=== PATIENT | male | born 1935 | race African-American/Black ===

== ENCOUNTER 2016-06-30 21:05 | Inpatient (IN) | payer OTHER, MEDICARE ==
[2016-06-30] VITALS (10 sets, daily range): BP systolic 116–272; BP diastolic 77–163; PULSE 95–124; RESP 24–28; TEMP 98.6; O2SAT 67–100
[~2016-06-30] VITALS: Ht 195.6 cm; Wt 80.1 kg
[~2016-06-30 21:05] MED LIST: ASPI81TA82 PEG; CORE6.25 PEG; FERR300S PO; LISI10 PEG; PREV15CA20 PO; QUET25 PO; ZOLP10TA3 PO
[2016-06-30] MEDS ORDERED: PANTOPRAZOLE SODIUM 40 MG VIAL IV PUSH ONE (21:15)
[2016-06-30] MEDS ORDERED: RESP: ALBUTEROL 2.5 MG/IPRATROPIUM 0.5 MG NEB (SCH) INH ONE (21:15)
--- NOTE | 2016-06-30 21:26 | PD ---
HPI Chief Complaint: Cold / Flu Symptoms Time Seen by Provider: 21:15 Travel History International Travel<30 days: No Contact w/Intl Traveler<30days: No Traveled to known affect area: No History of Present Illness HPI 80-year-old male presents to the emergency department by private transportation the care of his senior care daughter for evaluation of hemoptysis. Patient has history of previous CVA and complications post admission for urosepsis with prolonged intubation and tracheostomy placement. Reportedly 2 years ago tracheostomy was removed patient had tracheal stent placement and has done well. Patient also has chronic PEG insertion 6 years. Patient's had no recent febrile illness. Reportedly this evening just prior to arrival to the emergency department while patient was receiving PEG tube feedings family member noticed black clot-like appearing substance in the aspirate of his tube feedings and when removed appeared to be a blood clot. Shortly thereafter patient started having forceful coughing and was noted to have red blood in the mouth. No reported history of GI bleed or PE. Patient was noted to have some small amount of blood around the stoma of the PEG tube. Patient has had no recent febrile illness. There has been no vomiting. Patient has had aspiration pneumonia since hospitalization 6 years ago for urosepsis and tracheostomy basement. Patient denies any pain. Patient has dysarthria and dementia and again history is provided by daughter. The daughter reports that the patient lives with her. The daughter is a supervisor inspection room. The patient receives all his care through the [facility]. Patient has a nurse practitioner come to his home and last visit was within the past month. Patient was scheduled to have his PEG tube replaced June 29 but this is been deferred to July 21. Daughter states they've had no issues with the PEG tube. PFSH Past Medical History Narrative Medical Aspirin use anemia CVA tracheostomy trachea stent PEG tube CAD COPD diabetes dementia diminished hearing hypertension prostate cancer schizophrenia seizure disorder umbilical herniorrhaphy; no tobacco use; no notes reviewed pneumonitis respiratory failure cardiac arrest Klebsiella pneumonia cognitive dysfunction pseudomonas infection gastrostomy prostate cancer recurrent pneumonia UTI Hx Anticoagulant Therapy: Yes (ASA) Alzheimer's Disease: Yes Autoimmune Disease: No Cancer: Yes (ADVANCE PROSTATE CANCER) Cardiovascular Problems: Yes (HTN) COPD: Yes Cerebrovascular Accident: Yes Coronary Artery Disease: Yes Dementia: Yes Diabetes: Yes (DIET) Diminished Hearing: Yes (profound hard of hearing) Endocrine: Yes Gastrointestinal Disorders: Yes GERD: Yes Genitourinary: Yes (UROSEPSIS) Hypertension: Yes Immune Disorder: No Neurologic: Yes Psychiatric: Yes (SCHIZOPHRENIA) Respiratory: Yes (TRACH IN THE PAST) Seizures: Yes PNEUMOCCOCAL Vaccine (Year): 1 Past Surgical History Abdominal Surgery: Yes (PEG TUBE, UMBILICAL HERNIA REPAIR) Other Surgery: Yes (TRACHEOSTOMY) Social History Alcohol Use: No Tobacco Use: No (QUIT AGE 76: SMOKED 50 YEARS) Substance Use: No Allergies-Medications (Allergen,Severity, Reaction): Coded Allergies: Penicillin (Verified Allergy, Unknown, 06/30/16) *MDRO Multi-Drug Resistant Organism (Verified Adverse Reaction, Unknown, MRSA, 07/03/16) MRSA PCR screen POSITIVE - 07/01/16 Codeine (Verified Adverse Reaction, Unknown, Anaphylaxis, 06/30/16) Reported Meds & Prescriptions Reported Meds & Active Scripts Active Reported Valium (Diazepam) 10 Mg Tab 10 Mg PO HS PRN Quetiapine (Quetiapine Fumarate) 50 Mg Tab 50 Mg PO HS Quetiapine (Quetiapine Fumarate) 25 Mg Tab 25 Mg GT NOON PRN Lisinopril 10 Mg Tab 10 Mg GT BID Prevacid (Lansoprazole) 15 Mg Capdr 15 Mg PO HS Ferrous Sulfate Liq (Ferrous Sulfate) 300 Mg/5 Ml Soln 300 Mg GT DAILY Coreg (Carvedilol) 6.25 Mg Tab 6.25 Mg G-TUBE BID Aspirin 81 Mg Tabdr 81 Mg GT HS Review of Systems ROS Limitations: Other: (senior care daughter) Except as stated in HPI: all other systems reviewed are Neg General / Constitutional: No: Fever, Chills Eyes: No: Visual changes HENT: Positive: Congestion, No: Nosebleed Cardiovascular: No: Chest Pain or Discomfort Respiratory: Positive: Cough, Shortness of Breath, Wheezing, Hemoptysis Gastrointestinal: Positive: Hematemesis, Other (bleeding noted at PEG tube insertion site), No: Nausea, Vomiting, Abdominal Pain Genitourinary: No: Flank Pain Musculoskeletal: No: Pain Skin: No Rash Neurologic: No: Weakness Psychiatric: No: Anxiety Hematologic/Lymphatic: No: Lymph Node Enlargement Physical Exam Narrative GENERAL: Elderly male with persistent coughing intermittent small amount of hemoptysis room air O2 saturation's 93% SKIN: Warm and dry. HEAD: Normocephalic. EYES: No scleral icterus. No injection or drainage. NECK: Supple, trachea midline. No JVD or lymphadenopathy. CARDIOVASCULAR: Increased Regular rate and rhythm without murmurs, gallops, or rubs. RESPIRATORY: Breath sounds equal bilaterally. No accessory muscle use. GASTROINTESTINAL: Abdomen soft, non-tender, nondistended. Abdomen soft nondistended PEG tube in place with scant blood at the stoma. MUSCULOSKELETAL: No cyanosis, or edema. BACK: Nontender without obvious deformity. No CVA tenderness. Data Data Last Documented VS Orders Complete Blood Count With Diff (06/30/16 21:15) Comprehensive Metabolic Panel (06/30/16 21:15) B-Type Natriuretic Peptide (06/30/16 21:15) Act Partial Throm Time (Ptt) (06/30/16 21:15) Prothrombin Time / Inr (Pt) (06/30/16 21:15) Magnesium (Mg) (06/30/16 21:15) Ckmb (Isoenzyme) Profile (06/30/16 21:15) Troponin I (06/30/16 21:15) Urinalysis - C+S If Indicated (06/30/16 21:15) Blood Culture (06/30/16 21:15) Iv Access Insert/Monitor (06/30/16 21:15) Electrocardiogram (06/30/16 21:15) Ecg Monitoring (06/30/16 21:15) Oximetry (06/30/16 21:15) Oxygen Administration (06/30/16 21:15) Chest, Single Ap (06/30/16 21:15) Sodium Chloride 0.9% Flush (Ns Flush) (06/30/16 21:15) Albuterol-Ipratropium Neb (Duoneb Neb) (06/30/16 21:15) Pantoprazole Inj (Protonix Inj) (06/30/16 21:15) Type And Screen (06/30/16 21:15) Lactic Acid Sepsis Protocol (06/30/16 21:15) Cefepime Inj (Maxipime Inj) (06/30/16 22:00) Linezolid 600 Mg Premix (Zyvox 600 Mg Pr (06/30/16 22:00) Metronidazole 500 Mg Inj (Flagyl 500 Mg (06/30/16 22:00) Sodium Chlor 0.9% 1000 Ml Inj (Ns 1000 M (06/30/16 22:00) Sodium Chlor 0.9% 1000 Ml Inj (Ns 1000 M (06/30/16 22:00) Ct Pulmonary Angiogram (06/30/16 ) Blood Product Administration .UPON TRANSFUSION (06/30/16 21:55) Sodium Chlor 0.9% 250 Ml Inj (Ns 250 Ml (06/30/16 22:00) Albuterol-Ipratropium Neb (Duoneb Neb) (06/30/16 22:15) Methylprednisolone So Succ Inj (Solumedr (06/30/16 22:15) Ct Abd/Pel W Iv Contrast(Rout) (06/30/16 22:04) Ondansetron Inj (Zofran Inj) (06/30/16 22:30) Racemic Epinephrine 2.25% Neb (Racepinep (06/30/16 22:45) Iohexol 350 Inj (Omnipaque 350 Inj) (06/30/16 22:47) Albuterol-Ipratropium Neb (Duoneb Neb) (06/30/16 23:15) Arterial Blood Gas (Abg) (06/30/16 ) Chest, Single Ap (06/30/16 ) Admit Order (Ed Use Only) (06/30/16 ) ^ Saline Lock (06/30/16 23:28) Resp Oxygen Bird C Titrat 1-4 L (06/30/16 ) ^ Notify Dr: Other (06/30/16 23:28) Sodium Chloride 0.9% Flush (Ns Flush) (07/01/16 09:00) Sodium Chloride 0.9% Flush (Ns Flush) (06/30/16 23:30) Labs Laboratory Tests Test 06/30/16 21:25 Crossmatch Leukocyte-Reduced Red Blood Cells Blood Bank Comment MDM Medical Decision Making Medical Screen Exam Complete: Yes Emergency Medical Condition: Yes Medical Record Reviewed: Yes Interpretation(s) CBC & BMP Diagram 06/30/16 21:25 Last Impressions Abdomen/Pelvis CT 06/30/162203 Signed Impressions: Service Date/Time: Thursday, June 30, 2016 22:16 - CONCLUSION: 1. The questioned mass on the patient's CT pulmonary angiogram in the liver does not correspond to any mass and was probably early vascular phenomenon related to arterial enhancement. 2. Left adrenal nodule indeterminant could still be an adenoma and direct comparison with the patient's prior CT from 2011 will be performed when that study is available and unarchived. 3. Tiny pericardial effusion. 4. 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 5. Left inguinal hernia. Naresh Riddle MD Chest X-Ray 06/30/162114 Signed Impressions: Service Date/Time: Thursday, June 30, 2016 21:34 - CONCLUSION: Mild right lung base atelectasis and/or infiltrate is seen. Naresh Riddle MD CT Angiography 06/30/16 0000 Signed Impressions: Service Date/Time: Thursday, June 30, 2016 22:16 - CONCLUSION: 1. There is no evidence for PE for technique. 2. There is soft tissue density within the tracheal stent causing almost 80%% compromise of the lumen may be mucous accumulation, however a mass is difficult to exclude. 3. Right lower lobe pneumonia. 4. Left adrenal nodule could be an adenoma and when the patient's prior CT examination of the abdomen from 2011 is available and unarchived, direct comparison will be made. 5. Renal cysts. 6. Tiny pericardial effusion. Naresh Riddle MD EKG: Sinus rhythm rate [address] elevation or injury pattern change age- indeterminate QS inferiorly CK 97; troponin I less than 0.02 not elevated; BNP 54 not elevated Coagulation studies normal Lactic acid not elevated 1.9 Differential Diagnosis Hemoptysis, PE, GI bleed, erosive gastritis peptic ulcer disease esophagitis, gastric/viscus perforation, coagulopathy, sepsis, pneumonia Narrative Course Patient placed on court monitor IV access obtained patient administered supplemental oxygen; Specimens collected and sent for resulting; Chest x-ray ordered and [facility] ordered Patient noted to have increasing volume of hemoptysis @10:15 PM patient sent for stat CT chest and abdomen patient continues to have gross hemoptysis; at time of transfer to CT vital signs and normal range O2 saturation on 2 L/m supple no nasal cannula oxygen 100%. Chest x-ray shows right lower lobe early infiltrate versus atelectasis no pneumothorax no failure no effusion no subdiaphragmatic free air. Approximately [address] abd/pel no acute findings --aaa noted and essentially unchanged from prior CT findings; CT pulmonary angiogram ---no PE but noted to have tracheal stent with approximately 80% obstruction by mucous or mass and RLL infiltrate --call placed to pulmonary property consultant and neon sign worker per privacy manager does not recommend bronchoscopy at this time is aware of call out to neon sign worker with plan to transfer to [facility] ICU discussed in detail with neon sign worker hx and ct and ongoing hemoptysis; aware of interventions up to this point with plan to administer morphine to help diminish cough; however, allergy reportedly to MS. Plan to administer dilaudid patient already with abg consistent with respiratory acidosis and concern for further respiratory depression or respiratory failure after narcotic administration. Helminthology Teacher re-contacted as increase in stridor --- requesting additional effort to obtain ICU bed as respiratory has deteriorated also discussing ED to ED transfer; family at bedside, aware if unable to provide assisted ventilations will need to proceed with intubation here with risks discussed in detail Patient with ambu assisted ventilations hemoptysis has dissipated and placed on BiPaP patient with marked respiratory acidosis; patient will definitively need intubation @ 00:45 EMS at bedside; for emergent transfer to [facility]; bedside report given; respiratory therapist and nurse to assist during transport. Critical Care Narrative Aggregate critical care time was 60 minutes. Time to perform other separately billable procedures was not included in the critical care time. My time did not include minutes spent treating any other patients simultaneously or on activities that did not directly contribute to the patient's treatment. The services I provided to this patient were to treat and/or prevent clinically significant deterioration that could result in: Respiratory arrest septic shock I provided critical care services requiring my management, as noted below: Chart data review, documentation time, medication orders and management, vital sign assessments/reviewing monitor data, ordering and reviewing lab tests, ordering and interpreting/reviewing x-rays and diagnostic studies, care of the patient and discussion of the patient with the admitting physicians. Sepsis Criteria SIRS Criteria (2 or more): Heart rate over 90, RR > 20 or PaCO2 < 32 Sepsis Criteria (SIRS+source): Infect source susp/known Physician Communication Physician Communication discussed with Manager Transplant Dr Rock; call placed to neon sign worker discussed with Dr Amanda, no intubation; follow up call placed to neon sign worker; bed available EMS called for stat transport Diagnosis Primary Impression: Major hemoptysis Additional Impressions: COPD (chronic obstructive pulmonary disease) Dysphagia as late effect of cerebrovascular accident (CVA) Respiratory failure with hypercapnia Qualified Code: J96.02 - Acute respiratory failure with hypercapnia Respiratory failure, acute and chronic Qualified Code: J96.21 - Acute on chronic respiratory failure with hypoxia and hypercapnia Pneumonia Qualified Code: J69.0 - Aspiration pneumonia of right lower lobe, unspecified aspiration pneumonia type Sepsis Admitting Information Admitting Physician Requests: Admit Natalie Braun MD Jun 30, 2016 21:26 [facility] Medical Decision Making Medical Screen Exam Complete: Yes Emergency Medical Condition: Yes Medical Record Reviewed: Yes Interpretation(s) CBC & BMP Diagram 06/30/16 21:25 Last Impressions Abdomen/Pelvis CT 06/30/164 Signed Impressions: Service Date/Time: Thursday, June 30, 2016 22:16 - CONCLUSION: 1. The questioned mass on the patient's CT pulmonary angiogram in the liver does not correspond to any mass and was probably early vascular phenomenon related to arterial enhancement. 2. Left adrenal nodule indeterminant could still be an adenoma and direct comparison with the patient's prior CT from 2011 will be performed when that study is available and unarchived. 3. Tiny pericardial effusion. 4. 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 5. Left inguinal hernia. Naresh Riddle MD Chest X-Ray 06/30/162114 Signed Impressions: Service Date/Time: Thursday, June 30, 2016 21:34 - CONCLUSION: Mild right lung base atelectasis and/or infiltrate is seen. Naresh Riddle MD CT Angiography 06/30/16 0000 Signed Impressions: Service Date/Time: Thursday, June 30, 2016 22:16 - CONCLUSION: 1. There is no evidence for PE for technique. 2. There is soft tissue density within the tracheal stent causing almost 80%% compromise of the lumen may be mucous accumulation, however a mass is difficult to exclude. 3. Right lower lobe pneumonia. 4. Left adrenal nodule could be an adenoma and when the patient's prior CT examination of the abdomen from 2011 is available and unarchived, direct comparison will be made. 5. Renal cysts. 6. Tiny pericardial effusion. Naresh Riddle MD EKG: Sinus rhythm rate [address] elevation or injury pattern change age- indeterminate QS inferiorly CK 97; troponin I less than 0.02 not elevated; BNP 54 not elevated Coagulation studies normal Lactic acid not elevated 1.9 Differential Diagnosis Hemoptysis, PE, GI bleed, erosive gastritis peptic ulcer disease esophagitis, gastric/viscus perforation, coagulopathy, sepsis, pneumonia Narrative Course Patient placed on court monitor IV access obtained patient administered supplemental oxygen; Specimens collected and sent for resulting; Chest x-ray ordered and DuoNeb updrafts ordered Patient noted to have increasing volume of hemoptysis @10:15 PM patient sent for stat CT chest and abdomen patient continues to have gross hemoptysis; at time of transfer to CT vital signs and normal range O2 saturation on 2 L/m supple no nasal cannula oxygen 100%. Chest x-ray shows right lower lobe early infiltrate versus atelectasis no pneumothorax no failure no effusion no subdiaphragmatic free air. Approximately [address] abd/pel no acute findings --aaa noted and essentially unchanged from prior CT findings; CT pulmonary angiogram ---no PE but noted to have tracheal stent with approximately 80% obstruction by mucous or mass and RLL infiltrate --call placed to pulmonary property consultant and neon sign worker per privacy manager does not recommend bronchoscopy at this time is aware of call out to neon sign worker with plan to transfer to [facility] ICU discussed in detail with neon sign worker hx and ct and ongoing hemoptysis; aware of interventions up to this point with plan to administer morphine to help diminish cough; however, allergy reportedly to MS. Plan to administer dilaudid patient already with abg consistent with respiratory acidosis and concern for further respiratory depression or respiratory failure after narcotic administration. Helminthology Teacher re-contacted as increase in stridor --- requesting additional effort to obtain ICU bed as respiratory has deteriorated also discussing ED to ED transfer; family at bedside, aware if unable to provide assisted ventilations will need to proceed with intubation here with risks discussed in detail Patient with ambu assisted ventilations hemoptysis has dissipated and placed on BiPaP patient with marked respiratory acidosis; patient will definitively need intubation @ 00:45 EMS at bedside; for emergent transfer to [facility]; bedside report given; respiratory therapist and nurse to assist during transport. Critical Care Narrative Aggregate critical care time was 60 minutes. Time to perform other separately billable procedures was not included in the critical care time. My time did not include minutes spent treating any other patients simultaneously or on activities that did not directly contribute to the patient's treatment. The services I provided to this patient were to treat and/or prevent clinically significant deterioration that could result in: Respiratory arrest septic shock I provided critical care services requiring my management, as noted below: Chart data review, documentation time, medication orders and management, vital sign assessments/reviewing monitor data, ordering and reviewing lab tests, ordering and interpreting/reviewing x-rays and diagnostic studies, care of the patient and discussion of the patient with the admitting physicians. Sepsis Criteria SIRS Criteria (2 or more): Heart rate over 90, RR > 20 or PaCO2 < 32 Sepsis Criteria (SIRS+source): Infect source susp/known Physician Communication Physician Communication discussed with Manager Transplant Dr Rock; call placed to neon sign worker discussed with Dr Amanda, no intubation; follow up call placed to neon sign worker; bed available EMS called for stat transport Diagnosis Primary Impression: Major hemoptysis Additional Impressions: COPD (chronic obstructive pulmonary disease) Dysphagia as late effect of cerebrovascular accident (CVA) Respiratory failure with hypercapnia Qualified Code: J96.02 - Acute respiratory failure with hypercapnia Respiratory failure, acute and chronic Qualified Code: J96.21 - Acute on chronic respiratory failure with hypoxia and hypercapnia Pneumonia Qualified Code: J69.0 - Aspiration pneumonia of right lower lobe, unspecified aspiration pneumonia type Sepsis Admitting Information Admitting Physician Requests: Admit Natalie Braun MD Jun 30, 2016 21:26
[2016-06-30 21:40] LABS: BASOPHIL # 0.1 TH/MM3 (0-0.2); BASOPHIL % 1.6 % (0.0-2.0); EOSINOPHIL # 0.3 TH/MM3 (0-0.4); EOSINOPHIL % 4.8 % (0.0-4.0); HEMATOCRIT 37.3 % (39.0-51.0); HEMO FLAGS DIFF FINAL; LYMPH % 22.4 % (9.0-44.0); LYMPHOCYTE # 1.2 TH/MM3 (1.0-4.8); MEAN CELL VOLUME 96.4 FL (80.0-100.0); MEAN CORPUSCULAR HEMOGLOBIN 32.4 PG (27.0-34.0); MEAN CORPUSCULAR HGB CONC 33.6 % (32.0-36.0); MONO % 14.9 % (0.0-8.0); NEUT % 56.3 % (16.0-70.0); PLATELET COUNT 141 TH/MM3 (150-450); RED BLOOD COUNT 3.86 MIL/MM3 (4.50-5.90); RED CELL DISTRIBUTION WIDTH 14.9 % (11.6-17.2); WHITE BLOOD COUNT 5.4 TH/MM3 (4.0-11.0)
[2016-06-30] MEDS: SODIUM CHLORIDE 0.9% FLUSH 5 ML FLUSH IVF PRN (21:42)
--- NOTE | 2016-06-30 21:47 | RADHPO ---
EXAM DATE/TIME: 06/30/2016 21:34 [facility] COMPARISON: CHEST PA & LAT, November 12, 2014, 23:06. INDICATIONS : Shortness of breath. MEDICAL HISTORY : Hypertension. Carcinoma, prostatic. Cerebrovascular disease. Dementia, Alzheimer's disease, cad, copd, gerd, diabetes, urosepsis SURGICAL HISTORY : PEG tube, Hernia repair, Right hip pinning, Tracheostomy ENCOUNTER: Initial ACUITY: 1 day PAIN SCORE: 0/10 LOCATION: Bilateral chest FINDINGS: Mild right lung base atelectasis and/or infiltrate is seen. Heart and mediastinum are unremarkable fo r technique. CONCLUSION: Mild right lung base atelectasis and/or infiltrate is seen. Naresh Riddle MD on June 30, 2016 at 21:45 Board Certified Radiologist. This report was verified electronically.
[2016-06-30 21:52] LABS: APTT (PATIENT) 28.8 SEC (24.3-30.1); PROTHROMBIN TIME - PATIENT 10.7 SEC (9.8-11.6)
[2016-06-30 21:54] LABS: CHLORIDE 102 MEQ/L (98-107); POTASSIUM 4.6 MEQ/L (3.5-5.1); SODIUM (NA) 140 MEQ/L (136-145)
[2016-06-30] MEDS ORDERED: ASPI1TAB69 GT ×2 (21:56)
[2016-06-30] MEDS ORDERED: QUET1TAB7 GT (21:56)
[2016-06-30] MEDS ORDERED: CARV6.25 G-TUBE (21:56)
[2016-06-30] MEDS ORDERED: QUET5TAB PO (21:56)
[2016-06-30] MEDS ORDERED: PREV15CA15 PO (21:56)
[2016-06-30] MEDS ORDERED: LISI10TA3 GT (21:56)
[2016-06-30] MEDS ORDERED: DIAZ10 PO (21:56)
[2016-06-30] MEDS ORDERED: FERR300S GT (21:56)
[2016-06-30 21:57] LABS: ANION GAP 7 MEQ/L (5-15); BICARBONATE 31.4 MEQ/L (21.0-32.0); MAGNESIUM 2.4 MG/DL (1.5-2.5)
[2016-06-30 22:00] LABS: ALT (GPT) 14 U/L (12-78)
[2016-06-30] MEDS ORDERED: SODIUM CHLOR 0.9% 250 ML INJ 250 ML IV ONE (22:00)
[2016-06-30] MEDS ORDERED: CEFEPIME INJ 2,000 MG in SODIUM CHLORIDE 0.9% INJ 100 ML IV ONE (22:00)
[2016-06-30] MEDS ORDERED: metroNIDAZOLE 500 MG INJ 100 ML IV ONE (22:00)
[2016-06-30] MEDS ORDERED: SODIUM CHLOR 0.9% 1000 ML INJ 1,000 ML IV SCH (22:00)
[2016-06-30] MEDS ORDERED: LINEZOLID 600 MG PREMIX 300 ML IV ONE (22:00)
[2016-06-30] MEDS ORDERED: SODIUM CHLOR 0.9% 1000 ML INJ 1,000 ML IV ONE (22:00)
[2016-06-30 22:01] LABS: AST (GOT) 23 U/L (15-37); BLOOD UREA NITROGEN 29 MG/DL (7-18); GLOMERULAR FILTRATION RATE 92 ML/MIN (>89)
[2016-06-30 22:02] LABS: TOTAL BILIRUBIN ADULT 0.6 MG/DL (0.2-1.0)
[2016-06-30 22:03] LABS: ALKALINE PHOSPHATASE 96 U/L (45-117)
[2016-06-30 22:06] LABS: CREATINE KINASE 97 U/L (39-308)
[2016-06-30] MEDS ORDERED: RESP: ALBUTEROL 2.5 MG/IPRATROPIUM 0.5 MG NEB (SCH) NEB ONE ×2 (22:15→23:15)
[2016-06-30] MEDS ORDERED: methylPREDNISolone SOD SUCC 125 MG/2 ML VIAL IV PUSH ONE (22:15)
[2016-06-30] MEDS ORDERED: ONDANSETRON HCL 4 MG/2 ML VIAL IV PUSH ONE (22:30)
--- NOTE | 2016-06-30 22:43 | RADHPO ---
EXAM DATE/TIME: 06/30/2016 22:16 [place] Corrected on: June 30, 2016; [facility] COMPARISON: CT ABDOMEN & PELVIS W CONTRAST, June 30, 2016, 22:16. INDICATIONS : Hemoptysis with shortness of breath. IV CONTRAST: 100 cc Omnipaque 350 (iohexol) IV ; Cumulative dose for multiple exams. RADIATION DOSE: 11.14 CTDIvol (mGy) MEDICAL HISTORY : Hypertension. Chronic obstructive pulmonary disease. Gastroesophageal reflux disease.Inguinal hernia. Diabetes. SURGICAL HISTORY : None. ENCOUNTER: Initial ACUITY: 1 day PAIN SCALE: 5/10 LOCATION: chest TECHNIQUE: Volumetric scanning of the chest was performed using a pulmonary embolism protocol MIP images were re constructed. Using automated exposure control and adjustment of the mA and/or kV according to patien t size, radiation dose was kept as low as reasonably achievable to obtain optimal diagnostic quality images. FINDINGS: There is no evidence for PE for technique. There is a stent in the patient's trachea and at the level of the thoracic inlet there is soft tissue density within it causing almost 80% narrowing of th e lumen. This could be mucous accumulation, however a mass is difficult to exclude. Right lower lobe consolidation is present most likely pneumonia. Tiny pericardial effusion is seen. There is an area a lmost 5 cm enhancement in the right hepatic lobe probably vascular phenomenon since it is not identif ied as a mass on the patient's CT abdomen and this is related to early arterial enhancement. Left adr enal nodule is present measuring almost 2.2 cm in size nonspecific and the patient's older CT examina tion from 2011 is not available at this time for direct comparison. There are simple cysts in the kid neys. CONCLUSION: 1. There is no evidence for PE for technique. 2. There is soft tissue density within the tracheal stent causing almost 80% compromise of the lumen may be mucous accumulation, however a mass is difficult to exclude. 3. Right lower lobe pneumonia. 4. Left adrenal nodule could be an adenoma and when the patient's prior CT examination of the abdomen from 2011 is available and unarchived, direct comparison will be made. 5. Renal cysts. 6. Tiny pericardial effusion. Naresh Riddle MD on June 30, 2016 at 22:48 Board Certified Radiologist. This report was verified electronically.
[2016-06-30] MEDS ORDERED: RESP: RACEPINEPHRINE 2.25% 0.5 ML NEB NEB ONE (22:45)
[2016-06-30] MEDS ORDERED: IOHEXOL 350 MG/ML 10 ML VIAL (for RAD DIAG) IV ONE (22:47)
--- NOTE | 2016-06-30 22:50 | RADHPO ---
EXAM DATE/TIME: 06/30/2016 22:16 [facility] COMPARISON: No previous studies available for comparison. INDICATIONS : Hemoptysis with shortness of breath. IV CONTRAST: 100 cc Omnipaque 350 (iohexol) IV ; Cumulative dose for multiple exams. ORAL CONTRAST: No oral contrast ingested. RADIATION DOSE: 13.51 CTDIvol (mGy) MEDICAL HISTORY : Hernia, inguinal. Gastroesophageal reflux disease. Chronic obstructive pulmonary disease.Diabetes. Pr ostate carcinoma. SURGICAL HISTORY : Umbilical hernia repair. ENCOUNTER: Initial ACUITY: 1 day PAIN SCALE: 5/10 LOCATION: Abdomen. TECHNIQUE: Volumetric scanning of the abdomen and pelvis was performed. Using automated exposure control and ad justment of the mA and/or kV according to patient size, radiation dose was kept as low as reasonably achievable to obtain optimal diagnostic quality images. FINDINGS: CT Abdomen: There is an approximate 2 cm low attenuating mass in the left adrenal gland nonspecific w ith a separate smaller nodule as well. There are simple cysts in both kidneys the largest one on the right almost 5 cm in size. The liver, spleen, pancreas, right adrenal are unremarkable. There is no e vidence for any appreciable pathological adenopathy, free fluid, or bowel obstruction. There is exte nsive atherosclerotic disease involving the ascending aorta with AAA which measures 5.8 x 6.2 cm in s ize. There is also extension of the aneurysm into bilateral common iliac arteries and on the right si de measures 4.6 x 4.4 cm in size and on the left side almost 2.2 cm in size. Extensive intramural thr ombus is identified. Tiny pericardial effusion is seen. The area of possible mass on the patient's CT pulmonary angiogram within the right hepatic lobe was probably a vascular phenomenon related to german y arterial enhancement and there is no mass at this site. CT pelvis: There is no evidence for mass, abscess formation, or any significant adenopathy within the pelvis. The prostate gland is inhomogeneous and measures 5.1 x 5.6 cm in AP and transverse diameters and nonspecific. Left inguinal hernia is present with herniation of fat contents and some fluid at t his site. CONCLUSION: 1. The questioned mass on the patient's CT pulmonary angiogram in the liver does not correspond to an y mass and was probably early vascular phenomenon related to arterial enhancement. 2. Left adrenal nodule indeterminant could still be an adenoma and direct comparison with the patient 's prior CT from 2011 will be performed when that study is available and unarchived. 3. Tiny pericardial effusion. 4. 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 5. Left inguinal hernia. Naresh Riddle MD on June 30, 2016 at 22:41 Board Certified Radiologist. This report was verified electronically.
[2016-06-30] MEDS ORDERED: SODIUM CHLORIDE 0.9% FLUSH 5 ML FLUSH IVF PRN (23:30)
[2016-06-30 23:36] LABS: BLOOD GAS BASE EXCESS 5.1 mmol/L (-2-2); BLOOD GAS CARBOXYHEMOGLOBIN 1.7 % (0-4); BLOOD GAS HCO3 31 mmol/L (22-26); BLOOD GAS METHEMOGLOBIN 0.9 % (0-2); BLOOD GAS O2 HGB SATURATION 90 % (90-100); BLOOD GAS OXYGEN CONTENT 14.8 Vol % (12.0-20.0); BLOOD GAS PCO2 61 mmHG (38-42); BLOOD GAS PO2 71 mmHG (61-120); BLOOD GAS TOTAL HGB 11.6 G/DL (12.0-16.0); TEMP CORR TO 98.6
[2016-06-30 23:37] LABS: CRITICAL VALUE YES; DRAW SITE LT BRACHIAL; LITER FLOW 2 L/M; NUMBER OF ARTERIAL PUNCTURES 1; OXYGEN DEVICE NASAL CANNULA; STAT YES
[2016-06-30] MEDS ORDERED: DEXMEDETOMIDINE INJ 50 ML IV SCH (23:45)
[2016-07-01] VITALS (23 sets, daily range): BP systolic 109–223; BP diastolic 53–130; PULSE 48–112; RESP 18; TEMP 97.6–98.3; O2SAT 91–100
[2016-07-01] MEDS ORDERED: ENALAPRILAT 1.25 MG/ML VIAL IV PUSH ONE
[2016-07-01] MEDS ORDERED: FUROSEMIDE 40 MG/4 ML VIAL IV PUSH ONE
[2016-07-01] MEDS ORDERED: HYDROmorphone HCL PF 1 MG/ML VIAL IV PUSH ONE ×2
[2016-07-01] MEDS: SODIUM CHLORIDE 0.9% FLUSH 5 ML FLUSH IVF PRN (00:06)
[2016-07-01 00:25] LABS: BLOOD GAS BASE EXCESS 1.5 mmol/L (-2-2); BLOOD GAS CARBOXYHEMOGLOBIN 0.8 % (0-4); BLOOD GAS HCO3 34 mmol/L (22-26); BLOOD GAS METHEMOGLOBIN 1.2 % (0-2); BLOOD GAS O2 HGB SATURATION 77 % (90-100); BLOOD GAS PCO2 165 mmHG (38-42); BLOOD GAS PO2 73 mmHG (61-120); BLOOD GAS TOTAL HGB 12.9 G/DL (12.0-16.0); CRITICAL VALUE YES; DRAW SITE RT BRACHIAL; FIO2 100 %; NUMBER OF ARTERIAL PUNCTURES 1; OXYGEN DEVICE AMBU; STAT YES; TEMP CORR TO 98.6
--- NOTE | 2016-07-01 00:27 | RADHPO ---
EXAM DATE/TIME: 06/30/2016 23:29 [facility] COMPARISON: CT PULMONARY ANGIOGRAM, June 30, 2016, 22:16. CHEST SINGLE AP, June 30, 2016, 21:34. INDICATIONS : Cough. MEDICAL HISTORY : Hypertension. Carcinoma, prostatic. Cerebrovascular disease. Dementia, Alzheimer's disease, cad, copd, gerd, diabetes, urosepsis SURGICAL HISTORY : PEG tube, Hernia repair, Right hip pinning, Tracheostomy ENCOUNTER: Initial ACUITY: 1 day PAIN SCORE: 0/10 LOCATION: Bilateral chest FINDINGS: Rotated portable AP view of the chest demonstrates a normal-sized cardiac silhouette with tortuous de scending thoracic aorta. There is a stent within the trachea. The lungs are underinflated and there i s stable airspace consolidation at the right lung base. No pleural effusion or pneumothorax is visual ized. Bones and soft tissues demonstrate no acute finding. CONCLUSION: Stable chest x-ray with mild airspace consolidation at the right lung base. Zach Marquis MD on July 01, 2016 at 0:24 Board Certified Radiologist. This report was verified electronically.
[2016-07-01 00:46] LABS: GLUCOSE,URINE NEG (NEG); KETONE, URINE NEG (NEG); NITRITE,URINE NEG (NEG); PH, URINE 5.5 (5.0-8.5)
[2016-07-01 00:58] LABS: BLOOD, URINE MOD (NEG); URINE COLOR YELLOW (YELLW/STRAW); WBC, URINE 0-2 /hpf (0-5)
[2016-07-01 00:59] LABS: COMMENT (UR) CULT NOT INDICATED; CULTURE IF INDICATED CULT NOT INDICATED
[2016-07-01] MEDS ORDERED: ETOMIDATE 20 MG/10 ML VIAL ONE (01:43)
[2016-07-01] MEDS ORDERED: ROCURONIUM INJ 50 MG/5 ML VIAL ONE (01:44)
[2016-07-01] MEDS ORDERED: MIDAZOLAM HCL 5 MG/ML VIAL (1 ML) ONE (01:45)
[2016-07-01] MEDS ORDERED: LIDOCAINE HCL 2% 50 ML VIAL ONE (01:56)
[2016-07-01] MEDS ORDERED: KETAMINE HCL 500 MG/10 ML VIAL IV SCH (02:00)
[2016-07-01] MEDS ORDERED: NOREPINEPHRINE-DEXTROSE DRIP 250 ML IV ONE (02:21)
[2016-07-01] MEDS ORDERED: EPINEPHrine HCL (1:10,000) 1 MG/10 ML SYRINGE ONE (02:42)
[2016-07-01] MEDS ORDERED: fentaNYL 2,500 MCG/NS 250 ML IV SCH (03:00)
--- NOTE | 2016-07-01 03:07 | HHI.HP ---
HPI Service Critical Care Medicine Primary Care Physician [facility] Admission Diagnosis gross hemoptysis; pneumonia; copd Diagnosis: Travel History International Travel<30 Days: No Contact w/Intl Traveler <30 Da: No Traveled to Known Affected Are: No History of Present Illness 80-year-old male with past medical history of dementia, prostate cancer, coronary artery disease, diabetes mellitus (now diet controlled), HTN, seizure disorder who has had multiple hospitalizations for sepsis. He has a prior history of tracheostomy and PEG which were placed in 2009 following an episode of urosepsis and respiratory failure. 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 PEG remains in place and he is supposed to be fed exclusively through PEG due to recurrent aspiration, though his daughter states that he sometimes will eat when he is in respite care. Tonight his son-in-law was administering a bolus feed and then he had some hemoptysis. In addition, a clot had been removed when PEG suctioned. He has been coughing for about a week. No fevers. He was in respite care 06/08-06/10 when his daughter was out of town, but typically he is cared for by his daughter who is a coppersmith helper. When he presented to [facility], he underwent CTA chest which demonstrated no PE. There was opacification RLL concerning for aspiration. There was a tracheal stent in place, the proximal end of which was at the thoracic inlet and then extended distally ~3.75 cm. The stent appeared ~80% occluded by debris versus mass. The patient was initially on 2 L NC and having some hemoptysis. I accepted him in transfer. However, he subsequently developed respiratory distress, hypertension, anxiety, stridor.. ABG showed ph 7/32/PaCO2 61/paO2 71. He was started on heliox. He was bagged to assist ventilations and Bipap was attempted. ED physician understandably concerned with risk of endotracheal intubation or tracheostomy given the presence and location of stent with limited resources at that facility. Upon arrival to [facility], patient was being bagged, difficult to ventilate, and RN and paramedics revealed that a repeat ABG just prior to transport had pH 6.94/PaCO2 of 165/PA O2 of 73. Proceeded with emergent fiberoptic intubation under sedation with versed and ketamine. Therapeutic bronchoscopy performed to remove near complete occlusion of tracheal stent with organized clot and mucous. Aspiration injury apparent in lower pulmonary subsegments L>R. Past Family Social History Allergies: Coded Allergies: Penicillin (Verified Allergy, Unknown, 06/30/16) Codeine (Verified Adverse Reaction, Unknown, Anaphylaxis, 06/30/16) Past Medical History Dementia DM, diet controlled HTN Prostate cancer Seizure disorder CAD Iron deficiency anemia Past Surgical History Umbilical hernia repair Trach 2010 PEG 2010 Reported Medications Lisinopril 10 mg by mouth twice a day Quetiapine 25 mg at noon when necessary Quetiapine 50 mg by mouth daily at bedtime Valium 10 mill grams by mouth daily at bedtime Coreg 6.25 mg per tube twice a day Ferrous sulfate 300 mg per tube daily Aspirin 81 mg daily at bedtime Prevacid 50 mg per tube daily at bedtime Social History He is a former smoker. He quit smoking in 2009 remote history of alcohol use No illicit drug use Lives with his daughter and son-in-law He is a disabled Physical Exam Vital Signs Vital Signs Date Time Temp Pulse Resp B/P Pulse Ox O2 Delivery O2 Flow Rate FiO2 07/01/16 01:45 170/88 07/01/16 01:10 96 07/01/16 01:00 92 10.00 100 07/01/16 00:45 93 BiPAP 60 07/01/16 00:34 96 BiPAP 100 07/01/16 00:20 93 60 06/30/16 23:40 124 28 272/163 67 Non-Rebreather 15 06/30/16 23:28 106 212/100 97 Nasal Cannula 2 06/30/16 23:13 102 201/116 97 Nasal Cannula 2 06/30/16 22:53 94 Aerosol Mask 06/30/16 22:50 97 24 164/99 99 Nasal Cannula 2 06/30/16 22:01 95 24 116/77 100 Nasal Cannula 2 06/30/16 21:31 98 Nasal Cannula 2.00 06/30/16 21:15 98 Nasal Cannula 2 06/30/16 21:10 Nasal Cannula 2 06/30/16 21:05 98.6 103 28 144/109 93 Physical Exam GENERAL: Thin patient who is generally unresponsive but occasionally shakes head back and forth during assisted bagging. SKIN: Warm and dry, poor skin turgor. HEAD: Atraumatic. Normocephalic. EYES: Pupils equal and round. No scleral icterus. ENT: Nasal trumpet in place right near. Mucous membranes dry. NECK: Trachea midline. No JVD. CARDIOVASCULAR: Regular rate and rhythm with rate in 80s. No murmurs rubs or gallops. RESPIRATORY: He does have some inspiratory effort and being brought back to assist ventilation. Difficult to ventilate with poor air movement bilaterally. GASTROINTESTINAL: Abdomen soft, non-tender, nondistended. PEG tube is in place. Reducible left inguinal hernia. MUSCULOSKELETAL: Extremities without clubbing, cyanosis, or edema. NEUROLOGICAL: Mostly unresponsive to noxious stimuli though occasionally will shake his head back and forth during assisted bagging. Laboratory Laboratory Tests Test 06/30/16 06/30/16 06/30/16 07/01/16 21:25 22:30 23:30 00:01 White Blood Count 5.4 Red Blood Count 3.86 Hemoglobin 12.5 Hematocrit 37.3 Mean Corpuscular Volume 96.4 Mean Corpuscular Hemoglobin 32.4 Mean Corpuscular Hemoglobin 33.6 Concent Red Cell Distribution Width 14.9 Platelet Count 141 Mean Platelet Volume 9.3 Neutrophils (%) (Auto) 56.3 Lymphocytes (%) (Auto) 22.4 Monocytes (%) (Auto) 14.9 Eosinophils (%) (Auto) 4.8 Basophils (%) (Auto) 1.6 Neutrophils # (Auto) 3.0 Lymphocytes # (Auto) 1.2 Monocytes # (Auto) 0.8 Eosinophils # (Auto) 0.3 Basophils # (Auto) 0.1 CBC Comment DIFF FINAL Differential Comment Prothrombin Time 10.7 Prothromb Time International 1.0 Ratio Activated Partial 28.8 Thromboplast Time Sodium Level 140 Potassium Level 4.6 Chloride Level 102 Carbon Dioxide Level 31.4 Anion Gap 7 Blood Urea Nitrogen 29 Creatinine 0.96 Estimat Glomerular Filtration 92 Rate Random Glucose 89 Lactic Acid Level 1.9 Calcium Level 8.7 Magnesium Level 2.4 Total Bilirubin 0.6 Aspartate Amino Transf 23 (AST/SGOT) Alanine Aminotransferase 14 (ALT/SGPT) Alkaline Phosphatase 96 Total Creatine Kinase 97 Troponin I LESS THAN 0.02 B-Type Natriuretic Peptide 54 Total Protein 8.6 Albumin 3.0 Blood Type O POSITIVE O POSITIVE Antibody Screen NEGATIVE Crossmatch Leukocyte-Reduced Red Blood Cells Blood Bank Comment Blood Gas Puncture Site LT BRACHIAL Blood Gas Patient Temperature 98.6 Blood Gas HCO3 31 Blood Gas Base Excess 5.1 Blood Gas Oxygen Saturation 90 Arterial Blood pH 7.32 Arterial Blood Partial 61 Pressure CO2 Arterial Blood Partial 71 Pressure O2 Arterial Blood Oxygen Content 14.8 Arterial Blood 1.7 Carboxyhemoglobin Arterial Blood Methemoglobin 0.9 Blood Gas Hemoglobin 11.6 Oxygen Delivery Device NASAL CANNULA Blood Gas Liter Flow 2 Urine Color YELLOW Urine Turbidity CLEAR Urine pH 5.5 Urine Specific [place] GREATER THAN 1.035 Urine Protein 100 Urine Glucose (UA) NEG Urine Ketones NEG Urine Occult Blood MOD Urine Nitrite NEG Urine Bilirubin NEG Urine Leukocyte Esterase NEG Urine RBC 10-14 Urine WBC 0-2 Urine Squamous Epithelial 6-8 Cells Urine Amorphous Sediment FEW Urine Bacteria NONE Microscopic Urinalysis Comment CULT NOT INDICATED Test 07/01/16 00:19 Blood Gas Puncture Site RT BRACHIAL Blood Gas Patient Temperature 98.6 Blood Gas HCO3 34 Blood Gas Base Excess 1.5 Blood Gas Oxygen Saturation 77 Arterial Blood pH 6.94 Arterial Blood Partial 165 Pressure CO2 Arterial Blood Partial 73 Pressure O2 Arterial Blood Oxygen Content 14.0 Arterial Blood 0.8 Carboxyhemoglobin Arterial Blood Methemoglobin 1.2 Blood Gas Hemoglobin 12.9 Oxygen Delivery Device AMBU Blood Gas Inspired Oxygen 100 Date/Time Procedure Status Source Growth 06/30/16 21:30 Aerobic Blood Culture Received Blood Peripheral Pending 06/30/16 21:30 Anaerobic Blood Culture Received Blood Peripheral Pending Result Diagram: 06/30/16212406/30/162124 Assessment and Plan Assessment and Plan NEURO: Dementia Reported history of codeine allergy but his daughter reports that he has had fentanyl before without issue. Fentanyl infusion for sedation Versed when necessary for sedation Nimbex for paralysis RESP: Acute hypercapnic respiratory failure Upper airway obstruction due to occlusion of tracheal stent with mucus and clot. Hemoptysis Tracheal malacia Tracheal stent in situ History of tracheostomy subsequently decannulated. Aspiration pneumonia CT chest no PE. Soft tissue density within the tracheal stent causing 80% compromise of the lumen. Mucus accumulation versus mass. Right lower lobe pneumonia. Underwent fiberoptic intubation 07/01/16 with bronchoscopy with removal of multiple clots and mucous in order to regain patency of tracheal stent. No obvious active bleeding at the stent. + Aspiration injury with some oozing from lower airway. Consult pulmonology. Will need repeat bronchoscopy after stabilized. Continue cefepime, Flagyl. Decadron 4 g IV every 8 hours Racemic epi 0.5 mL neb every 6 hours 24 hours Mucomyst 20% noted every 6 hours 24 hours Duoneb q6 hours CV: Hypotension sedative-related following intubation Levophed to maintain mean arterial pressure greater than 65. Bolus with 2 L normal saline as he appears volume depleted. Suspect pulmonary edema on CXR is related to negative pressure rather than to intravascular overload. He had received Lasix prior to arrival and had 1 L of urine output. LR 125 mL per hour Hold aspirin due to hemoptysis GI: GERD Reducible left inguinal hernia History of umbilical hernia repair Reflux and probable esophageal dysmotility as there is residual in esophagus on CT abd/pelvis. PEG in place, placed to suction with no return. Gastric distension persists, placed OGT to LIWS. NPO. FEN/RENAL: Volume depletion Insert Person. Monitor intake and output. Monitor electrolytes. Replace as indicated per ICU elect to let replacement protocol Fluids as per above. ID: Acute Aspiration pneumonia History of penicillin allergy causing hives. He has had cephalosporins in the past without complication. Unfortunately, did not obtain bronchial washings during intubation. Advised RT not to obtain blind sputum sample as they met resistance at level of stent when they attempted suction. Patient will need followup bronchoscopy and could consider bronchial wash at that time. Empiric coverage for aspiration pneumonia with Flagyl and cefepime. Also added vancomycin due to recent contact with healthcare facility in the last couple weeks. HEME: Iron deficiency anemia Continue ferrous sulfate 300 daily ENDO: Diabetes mellitus, diet controlled Low-dose insulin sliding scale at bedside glucose every 6 hours PROPH: SCDs for DVT prophylaxis. Hold on pharmacologic DVT prophylaxis due to hemoptysis. Protonix 40 g IV daily for stress ulcer prophylaxis and history of GERD ACCESS: Right IJ central venous line placed 07/01/16 #1, RT made multiple attempt to obtain ABG via radial site, unsuccessfully and ultimately obtained ABG via femoral approach. I did attempt R radial art line under ultrasound guidance but was unable to thread so placed right femoral Art line 07/01/16 [address] Braun on multiple occasions and appreciate her efforts to facilitate transfer of this very critically ill patient with difficult airway. Discussed with Dr. Lanier with radiology and reviewed scan with him, as the PACS system for [employer] was not functioning properly throughout the night. Daughter updated at bedside on multiple occasions. She is a coppersmith helper Critical care time 90 minutes exclusive of separately billable procedures Yadira Amanda MD Jul 01, 2016 03:07 Yadira Amanda MD Jul 01, 2016 03:07
--- NOTE | 2016-07-01 03:07 | PD.PROCEDR ---
Procedure Note Procedure PROCEDURE NOTE PROCEDURE: Endotracheal intubation and Therapeutic bronchoscopy. INDICATION: Acute hypercapnic respiratory failure with airway obstruction DETAILS OF PROCEDURE: Patient [place] [facility] being bagged with nasal trumpet , minimally responsive, poor air movement, requiring emergent intubation for severe hypercapneic respiratory failure with upper airway obstruction. RT, RN and difficult airway cart at bedside. Patient was given 4 ml of 2% lidocaine neb. Given versed 4 mg IV and Ketamine 50 mg IV. Bloody secretions and clot suctioned from oropharynx and glottis under direct visualization with glidescope and then Lema airway was placed and patient was bagged and was able to achieve sats 96% with bagging with 100% O2. 8.0 ETT was placed on fiberoptic bronchoscope. The bronchoscope was advanced through Lema airway and then advanced through cords. The ETT was then advanced to the proximal aspect of the tracheal stent. The stent was nearly completely occluded with organized clot and mucous secretions along with granulation tissue. Suctioned and irrigated with normal saline multiple times and was able to dislodge adequate amount of mucous and clot in order to achieve adequate airway patency. Two large dark red clots were removed, in addition to white fibrinous clots. No active bleeding apparent at level of the tracheally stent. Eventually was able to advance bronchoscope through the stent and explore pulmonary subsegments. There were mucoid secretions suctioned from RUL. There were mucoid/bloody secretions suctioned from RML and RLL subsegments with assistance of bronchial wash. The left lung had multiple areas of petechial hemorrhage and inflammation that appear consistent with aspiration injury, slight bloody ooze. Multiple thick mucoid bloody secretions suctioned from LLL. There is apparent aspiration injury bilaterally, worse on left than right. Instilled Epinephrine 1 :10,000 2mL at EDITH and LLL bronchus. Given additional Ketamine 50 mg IV during bronchoscopy. Patient tolerated procedure well without apparent complication. Sats were maintained above 89% throughout. Patients daughter updated at bedside. Photographs placed on chart. Yadira Amanda MD Jul 01, 2016 03:07
[2016-07-01] MEDS ORDERED: CISATRACURIUM INJ 100 MG in SODIUM CHLOR 0.9% 250 ML INJ 240 ML IV SCH (03:15)
[2016-07-01] MEDS ORDERED: MIDAZOLAM HCL 2 MG/2 ML VIAL IV PUSH PRN (03:15)
[2016-07-01] MEDS ORDERED: MISCELLANEOUS NURSING INFORMATION XX SCH (03:15)
[2016-07-01] MEDS ORDERED: SODIUM CHLORIDE 0.9% FLUSH 5 ML FLUSH IV FLUSH PRN (03:15)
[2016-07-01] MEDS ORDERED: fentaNYL DRIP 250 ML IV SCH ×2 (03:15)
[2016-07-01] MEDS ORDERED: CHLORHEXIDINE GLUCONATE 2 % 1 PACK (2 CLOTHS) TOP PRN (03:15)
[2016-07-01] MEDS ORDERED: ONDANSETRON HCL 4 MG/2 ML VIAL IV PRN (03:15)
[2016-07-01] MEDS ORDERED: Vancomycin Consult Pharmacy 1 EA OTHER SCH (03:15)
[2016-07-01] MEDS ORDERED: RESP: ALBUTEROL 2.5 MG/3 ML NEB (PRN) INH (03:15)
[2016-07-01] MEDS ORDERED: ACETAMINOPHEN 325 MG TAB TUBE PRN (03:15)
[2016-07-01] MEDS ORDERED: CISATRACURIUM BESYLATE 20 MG/10 ML VIAL IVP ONE (03:15)
[2016-07-01] MEDS ORDERED: MIDAZOLAM 100 MG/ML INJ 100 ML IV SCH (03:15)
[2016-07-01] MEDS ORDERED: TERBUTALINE INJ 1 MG/ML AMP SQ PRN (03:30)
[2016-07-01] MEDS ORDERED: DEXTROSE 50% IN WATER 50 ML VIAL(D50) IV PUSH PRN (03:30)
[2016-07-01] MEDS ORDERED: SODIUM CHLOR 0.9% 1000 ML INJ 1,000 ML IV ONE ×2 (03:30)
[2016-07-01] MEDS ORDERED: GLUCAGON 1 MG/ML VIAL OTHER PRN (03:30)
[2016-07-01] MEDS ORDERED: NOREPINEPHRINE-DEXTROSE DRIP 250 ML IV SCH (03:30)
[2016-07-01] MEDS: INSULIN ASPART SUPPLEMENTAL SCALE SQ SCH ×3 (03:30→15:22)
[2016-07-01 03:48] LABS: BLOOD GAS BASE EXCESS 1.8 mmol/L (-2-2); BLOOD GAS CARBOXYHEMOGLOBIN 1.4 % (0-4); BLOOD GAS HCO3 27 mmol/L (22-26); BLOOD GAS METHEMOGLOBIN 0.9 % (0-2); BLOOD GAS O2 HGB SATURATION 98 % (90-100); BLOOD GAS OXYGEN CONTENT 15.7 Vol % (12.0-20.0); BLOOD GAS PCO2 55 mmHg (38-42); BLOOD GAS PO2 366 mmHg (61-120); BLOOD GAS TOTAL HGB 10.7 G/DL (12.0-16.0); TEMP CORR TO 98.6
[2016-07-01 03:49] LABS: CRITICAL VALUE YES; OXYGEN DEVICE VENTILATOR
[2016-07-01 03:50] LABS: DRAW SITE LT FEMORAL; FIO2 100 %; NUMBER OF ARTERIAL PUNCTURES 2; STAT YES; ULNAR PULSE PRESENT; VENT SETTINGS AC18/550/PEEP5
--- NOTE | 2016-07-01 03:54 | RADRPT ---
EXAM DATE/TIME: 07/01/2016 03:13 [facility] COMPARISON: CHEST SINGLE AP, June 30, 2016, 21:34. CHEST SINGLE AP, June 30, 2016, 23:29. INDICATIONS : Shortness of breath, possible pulmonary disease. MEDICAL HISTORY : Hypertension. Carcinoma, prostatic. Cerebrovascular disease. GERD COPD Diatetes SURGICAL HISTORY : Tracheostomy, Peg Hernia repair ENCOUNTER: Subsequent ACUITY: 2 days PAIN SCORE: Non-responsive. LOCATION: Bilateral chest FINDINGS: Portable AP view of the chest demonstrates a normal-sized cardiac silhouette. A stent is present with in the trachea. Distal aspect of the stent measures 2.5 cm from the josh compared to approximately 7 cm previously. Endotracheal tube has been placed and the distal tip abuts the superior aspect of th e tracheal stent and measures 7.1 cm from the josh. There is new and increased bilateral lower lung zone airspace consolidation. No pleural effusion or pneumothorax is identified. There is marked rolando lala distention with air. CONCLUSION: 1. Endotracheal tube has been placed and measures approximately 7 cm from the josh. The endotrachea l tube may have pushed the tracheal stent distally in the trachea since the distal aspect of the sten t now only measures 2.5 cm from the josh. 2. New bilateral lower lung zone airspace consolidation increased from the earlier examination. Aspir ation should be a consideration. Zach Marquis MD on July 01, 2016 at 3:49 Board Certified Radiologist. This report was verified electronically.
[2016-07-01] MEDS ORDERED: CHLORHEXIDINE GLUCONATE 2 % 1 PACK (2 CLOTHS) TOP SCH (04:00)
[2016-07-01] MEDS: LACTATED RINGER'S 1000 ML INJ 1,000 ML IV SCH ×2 (05:36→11:29)
--- NOTE | 2016-07-01 05:49 | RADRPT ---
EXAM DATE/TIME: 07/01/2016 05:10 [facility] COMPARISON: CHEST SINGLE AP, July 01, 2016, 3:13. INDICATIONS : Central line placement. MEDICAL HISTORY : Hypertension. Chronic obstructive pulmonary disease. Gastroesophageal reflux disease. SURGICAL HISTORY : Tracheostomy. ENCOUNTER: Subsequent ACUITY: 2 days PAIN SCORE: Non-responsive. LOCATION: Bilateral chest FINDINGS: Portable AP view of the chest demonstrates right IJ line distal tip in the SVC. No pneumothorax is id entified. There is persistent bilateral lower lung zone airspace consolidation. ETT and tracheal sten t remain present. CONCLUSION: A right IJ central line tip is in the SVC and no pneumothorax is identified. Otherwise, stable exam. Zach Marquis MD on July 01, 2016 at 5:47 Board Certified Radiologist. This report was verified electronically.
[2016-07-01] MEDS: metroNIDAZOLE 500 MG INJ 100 ML IV SCH ×3 (05:52→15:21)
[2016-07-01] MEDS: CEFEPIME INJ 2,000 MG in SODIUM CHLORIDE 0.9% INJ 100 ML IV SCH ×2 (05:53→13:46)
[2016-07-01] MEDS: DEXAMETHASONE SOD PHOS 4 MG/ML VIAL IV PUSH SCH ×2 (05:55→13:47)
[2016-07-01] MEDS: RESP: RACEPINEPHRINE 2.25% 0.5 ML NEB NEB SCH ×3 (06:00→17:43)
[2016-07-01] MEDS: RESP: ALBUTEROL 2.5 MG/IPRATROPIUM 0.5 MG NEB (SCH) INH ×3 (06:00→17:00)
[2016-07-01] MEDS ORDERED: VANCOMYCIN INJ 2,000 MG in SODIUM CHLORID 0.9% 500 ML INJ 500 ML IV ONE (07:00)
[2016-07-01] MEDS ORDERED: CHLORHEXIDINE 0.12% (ORAL KIT) 15 ML CUP MT SCH (08:00)
[2016-07-01] MEDS: RESP: ACETYLCYSTEINE 20% 30 ML NEB NEB SCH ×2 (08:58→17:00)
[2016-07-01] MEDS ORDERED: PANTOPRAZOLE SODIUM 40 MG VIAL IV SCH (09:00)
[2016-07-01] MEDS ORDERED: SODIUM CHLORIDE 0.9% FLUSH 5 ML FLUSH IV FLUSH SCH (09:00)
[2016-07-01] MEDS ORDERED: SODIUM CHLORIDE 0.9% FLUSH 5 ML FLUSH IVF SCH (09:00)
--- NOTE | 2016-07-01 09:14 | PD.PROCEDR ---
Procedure Note Procedure DATE: 07/01/16 CENTRAL LINE PLACEMENT: Right internal jugular vein. Ultrasound-guided INDICATION: Central venous access CONSENT Informed consent for procedure was obtained from patient's daughter after discussion of risks, benefits, alternatives.. DESCRIPTION OF THE PROCEDURE The patient was placed in supine position, Trendelenburg. The skin was cleansed with Chloraprep. Additional barrier precautions included large sterile drape, sterile gloves, sterile gown, face mask, and hat. 1 % lidocaine was used for local anesthesia. Under direct ultrasound guidance and on single attempt, the vein was accessed with an introducer needle. The guide wire was advanced and the tract was dilated. Using Seldinger technique a 7 Afghan 20 cm antimicrobial coated triple-lumen catheter was advanced to a depth of 18 centimeters. The guide wire was removed. All ports had good return of dark venous blood and flushed easily with saline. The central line was secured with 2.0 silk. A sterile dressing with antibiotic disc was applied. ESTIMATED BLOOD LOSS: Minimal COMPLICATIONS: No apparent complications. STAT chest x-ray demonstrates satisfactory CVL position without apparent complication. Yadira Amanda MD Jul 01, 2016 09:14
--- NOTE | 2016-07-01 09:21 | PD.PROCEDR ---
Procedure Note Procedure DATE: 07/01/16 PROCEDURE: Right femoral arterial catheter placement INDICATION: Shock, respiratory failure. Need for ABG and hemodynamic monitoring. DETAILS OF PROCEDURE The patient was placed in supine position. The skin was cleansed with Chloraprep. Additional barrier precautions included large sterile drape, sterile gloves, sterile gown, face mask, and hat. 1% lidocaine was used for local anesthesia. Under direct ultrasound guidance and on the first attempt, the r femoral artery was accessed with an introducer needle. The guide wire was advanced. Using Seldinger technique 16 gauge arterial catheter was placed. The guide wire was removed. The catheter was connected to a transducer line and flushed with saline. The video monitor displayed normal arterial wave forms. The catheter was secured with 2-0 silk. A sterile dressing with antibiotic disc was applied. ESTIMATED BLOOD LOSS: minimal COMPLICATIONS: None Yadira Amanda MD Jul 01, 2016 09:21
[2016-07-01] MEDS ORDERED: DEXT 5%-NACL 0.9% 1000 ML INJ 1,000 ML IV SCH (12:30)
[2016-07-01 13:01] LABS: AUTOMATED NEUTROPHIL # 7.3 TH/MM3 (1.8-7.7); BASOPHIL % 0.3 % (0.0-2.0); HEMATOCRIT 28.7 % (39.0-51.0); HEMO FLAGS DIFF FINAL; LYMPH % 6.6 % (9.0-44.0); LYMPHOCYTE # 0.6 TH/MM3 (1.0-4.8); MEAN CELL VOLUME 95.9 FL (80.0-100.0); MEAN CORPUSCULAR HEMOGLOBIN 34.2 PG (27.0-34.0); MEAN CORPUSCULAR HGB CONC 35.7 % (32.0-36.0); MONO % 9.1 % (0.0-8.0); PLATELET COUNT 108 TH/MM3 (150-450); RED BLOOD COUNT 2.99 MIL/MM3 (4.50-5.90); RED CELL DISTRIBUTION WIDTH 15.4 % (11.6-17.2); WHITE BLOOD COUNT 8.7 TH/MM3 (4.0-11.0)
[2016-07-01 13:13] LABS: BICARBONATE 27.4 MEQ/L (21.0-32.0); MAGNESIUM 1.9 MG/DL (1.5-2.5); POTASSIUM 3.8 MEQ/L (3.5-5.1)
[2016-07-01] MEDS ORDERED: SODIUM PHOSPHATE INJ 30 MMOL in SODIUM CHLOR 0.9% 250 ML INJ 240 ML IV PRN (13:30)
[2016-07-01] MEDS ORDERED: POTASSIUM CHLOR 20 MEQ PREMIX 100 ML IV PRN ×2 (13:30)
[2016-07-01] MEDS ORDERED: MAGNESIUM OXIDE 400 MG TAB PO PRN (13:30)
[2016-07-01] MEDS ORDERED: POTASSIUM CL 40 MEQ/30 ML LIQ UDC PO/TUBE PRN ×2 (13:30)
[2016-07-01] MEDS ORDERED: POTASSIUM PHOSPHATE MONOBASIC 500 MG TAB PO PRN (13:30)
[2016-07-01] MEDS ORDERED: POTASSIUM CHLOR 40 MEQ PREMIX 100 ML IV PRN ×2 (13:30)
[2016-07-01] MEDS ORDERED: POTASSIUM PHOSPHATE INJ 30 MMOL in SODIUM CHLOR 0.9% 250 ML INJ 250 ML IV PRN (13:30)
[2016-07-01] MEDS ORDERED: MAGNESIUM SULFATE INJ 4 GM in SODIUM CHLORIDE 0.9% INJ 92 ML IV PRN (13:30)
[2016-07-01] MEDS ORDERED: MAGNESIUM SULFATE INJ 2 GM in SODIUM CHLORIDE 0.9% INJ 96 ML IV PRN (13:30)
[2016-07-01] MEDS ORDERED: POTASSIUM PHOSPHATE MONOBASIC 500 MG TAB PO/TUBE PRN (13:30)
[2016-07-01] MEDS ORDERED: RESP: ALBUTEROL 2.5 MG/IPRATROPIUM 0.5 MG NEB (SCH) NEB (16:00)
[2016-07-01 16:55] LABS: BLOOD GAS BASE EXCESS 1.3 mmol/L (-2-2); BLOOD GAS CARBOXYHEMOGLOBIN 1.5 % (0-4); BLOOD GAS HCO3 24 mmol/L (22-26); BLOOD GAS METHEMOGLOBIN 0.8 % (0-2); BLOOD GAS O2 HGB SATURATION 96 % (90-100); BLOOD GAS OXYGEN CONTENT 14.2 Vol % (12.0-20.0); BLOOD GAS PCO2 32 mmHg (38-42); BLOOD GAS PO2 102 mmHg (61-120); BLOOD GAS TOTAL HGB 10.4 G/DL (12.0-16.0); CRITICAL VALUE NO; DRAW SITE ART LINE; FIO2 35 %; OXYGEN DEVICE VENTILATOR; STAT NO; TEMP CORR TO 98.6; VENT SETTINGS A/C 18/550/5PEEP
[2016-07-02] MEDS ORDERED: VANCOMYCIN 1,500 MG/NS 500 ML IV SCH ×2 (08:00)
[2016-07-02] MEDS ORDERED: FERROUS SULFATE 300 MG /5ML UDC GT SCH (09:00)
--- NOTE | 2016-07-02 12:33 | EKG ---
Date Performed: 06/30/2016 Time Performed: 21:46:06 PTAGE: 80 years EKG: Sinus rhythm . Since previous tracing, no significant change noted Normal ECG PREVIOUS TRACING : 05/11/2013 08.56 DOCTOR: Katarina Abarca Interpretating Date/Time 07/02/2016 12:31:14
--- NOTE | 2016-07-02 12:33 | EKG ---
Date Performed: 06/30/2016 Time Performed: 23:45:12 PTAGE: 80 years EKG: Pacer detection suspended due to external noise-REVIEW ADVISED Sinus tachycardia with sinus arrhythmia. Lateral ST-T changes may be due to myocardial ischemia Since previous tracing, no signif icant change noted Abnormal ECG PREVIOUS TRACING : 06/30/2016 21.46 DOCTOR: Katarina Abarca Interpretating Date/Time 07/02/2016 12:31:33
[2016-07-04] MEDS ORDERED: PHARMACY ORDERED LAB XX ONE (07:45)
--- NOTE | 2016-07-04 09:32 | MB ---
cc: LEE ANDERSON DATE OF CONSULTATION 07/01/[address] Rizo REASON FOR CONSULTATION Pulmonary management HISTORY OF PRESENT ILLNESS Mr. Cesar is a 80-year-old black male with history of prostate cancer, history of diabetes mellitus. The patient also has a history of sepsis. After that, he had respiratory failure and tracheostomy tube. He developed tracheomalacia and he had a tracheal stent placed at [facility]. The patient has PEG tube and he usually feeds through the PEG tube. He was brought to [facility] with an episode of hemoptysis and he also has some blood from the PEG tube. He had a CT scan of the chest done which shows almost 80% occlusion of the trachea above the tracheal stent. He also has patchy lung infiltrate. The patient was transferred to [facility]. He developed hypercapnic respiratory failure. Dr. Amanda intubated the patient and a size #8 end[address] tube is in place. During the intubation, she suctioned lot of clots and mucous. Currently, he is on assist control. Interventional cathode builder workup was consulted from [facility] physician who placed the tracheal stent and he is accepting the patient for transfer. He is currently on assist control FIO2 40%. His blood gas on 100% FIO2 showed pH 7.32, pCO2 55, pO2 366. His WBC count 8.7, hemoglobin 10.2, hematocrit 28.7, MCV 95, platelet count 108. Sodium 140, potassium 3.8, chloride 107, CO2 27, BUN 26, creatinine 0.83. PAST MEDICAL HISTORY 1. History of CA of the prostate. 2. Dementia 3. Diabetes mellitus 4. 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 History of respiratory failure and tracheostomy which was reversed. 6. PEG tube placement 7. Seizure disorder. 8. Iron deficiency anemia. and the patient. MEDICATIONS Currently 1. Ferrous sulfate 300 mg 2. Vancomycin IV, 3. Potassium supplement 4. Cefepime 2 grams q.8 h 5. Decadron 4 mg q.8 h, 6. Flagyl q. 6-hour 7. Albuterol/Atrovent nebulizer treatment 8. Racemic epinephrine 9. Mucomyst nebulizer treatment. 10. He is sedated with Nimbex 11. Fentanyl 12. Versed. ALLERGIES CODEINE PENICILLIN SOCIAL HISTORY Lives with his daughter who is his prospecting driller helper . REVIEW OF SYSTEMS Cannot assess. PHYSICAL EXAMINATION GENERAL: Elderly male intubated and sedated. Blood pressure 139/83, heart rate 75, respirations 18, temperature 98.1 HEENT: Pupils are equal, reactive to light. She is orally intubated. NECK: Supple. JVD not raised. CHEST: Lungs equal bilaterally. He has scattered rales. CARDIOVASCULAR: S1, S2 normal. ABDOMEN: Benign. EXTREMITIES: No edema. IMPRESSION 1. Hypercapnic respiratory failure. 2. Tracheal obstruction, possibly from the mass, possible mucus plug in the clot. 3. History of tracheomalacia status post tracheal stent placement 4. COPD. 5. History of CA of the prostate 6. History of tracheostomy before PLAN Continue with the ventilator support. He is sedated with Nimbex, fentanyl and Versed. Continue antibiotic aerosol treatment. Arrangements are under way to transfer the patient to [facility]. Further treatment will depend on the course in the hospital. Thank you Dr. Rizo for this consultation. MD MAGGIE Montesinos/ /2:30 PM /9:31 AM [email or web address]
--- NOTE | 2016-08-30 13:42 | MD ---
cc: DUNCAN GARCIA M.D. ADMISSION DATE: 06/30/2016 DISCHARGE DATE: 07/01/2016 DATE OF : 1935 BRIEF HISTORY The patient is a 80-year-old male with a past medical history of dementia, prostate cancer, CAD, diabetes mellitus, hypertension, seizure disorder, who has had multiple hospitalizations for sepsis. The patient had a prior history of a tracheostomy and PEG tube which were placed in 2009 following an episode of urosepsis and respiratory failure. His trach was decannulated in 2011 and was later diagnosed with tracheomalacia and a tracheal stent was placed in [facility] approximately two years ago. The patient presented to [facility] ED with hemoptysis. In addition he had a clot removed from the PEG tube when suctioned. The patient underwent a CTA of the chest which showed no PE; however, there was a soft tissue density within the tracheal stent causing almost 80% compromise of the lumen, may be mucous accumulation, however, mass was difficult to exclude. A right lower lobe pneumonia was noted in addition to a left adrenal nodule. HOSPITAL COURSE The patient was admitted to the ICU and he underwent fiberoptic intubation with bronchoscopy with removal of multiple clots and mucus. No obvious active bleeding was present at the stent. The bronchoscopy was performed by Dr. Amanda. The patient was placed on bronchodilators, broad-spectrum antibiotics in the form of cefepime and Flagyl, IV steroids, racemic epi nebulizers and Mucomyst. The patient also was placed on Levophed and was given two liters of normal saline as he was volume depleted on arrival, and place on IV fluids in the form of LR at 125 mL an hour. His aspirin was held due to hemoptysis. An OG tube was placed to low intermittent wall suction. The patient was also on ferrous sulfate for iron deficiency anemia and sliding scale insulin for diabetes mellitus. A right IJ central line was placed by Dr. Amanda. He was then seen by Dr. Rock from the pulmonary service and in addition to fentanyl and Versed infusion for sedation he was on a neuromuscular blockade with Nimbex. The patient was transferred to [facility] on the same day to be followed by his machine compositor who placed the tracheal tent. The patient was discharged in stable condition. MD JACKELIN Myers /5:30 PM /1:24 PM
== END 2016-07-01 18:15 | disposition short-term general hospital (02) | DRG 189 ==
LOC: PHED 21:05 → PHEDA 23:39 → HIMN 07-01 01:35
PROVIDERS: ADMIT Emergency Medicine; ATTEND Emergency Medicine
PROC: 04HY32Z Insertion of Monitoring Device into Lower Artery, Percutaneous Approach (ICD-10-PCS; principal; 2016-06-30)
PROC: 0BJ08ZZ Inspection of Tracheobronchial Tree, Via Natural or Artificial Opening Endoscopic (ICD-10-PCS; 2016-07-01)
PROC: 04HY32Z Insertion of Monitoring Device into Lower Artery, Percutaneous Approach (ICD-10-PCS; 2016-07-01)
PROC: 0BH17EZ Insertion of Endotracheal Airway into Trachea, Via Natural or Artificial Opening (ICD-10-PCS; 2016-07-01)
PROC: 02HV33Z Insertion of Infusion Device into Superior Vena Cava, Percutaneous Approach (ICD-10-PCS; 2016-07-01)
DX: J96.02 Acute respiratory failure with hypercapnia (principal); J69.0 Pneumonitis due to inhalation of food and vomit; E87.2 Acidosis; E11.9 Type 2 diabetes mellitus without complications; D50.9 Iron deficiency anemia, unspecified; I10 Essential (primary) hypertension; J95.03 Malfunction of tracheostomy stoma; T85.698A Other mechanical complication of other specified internal prosthetic devices, implants and grafts, initial encounter; G30.9 Alzheimer's disease, unspecified; F02.80 Dementia in other diseases classified elsewhere, unspecified severity, without behavioral disturbance, psychotic disturbance, mood disturbance, and anxiety; J44.9 Chronic obstructive pulmonary disease, unspecified; E86.9 Volume depletion, unspecified; J39.8 Other specified diseases of upper respiratory tract; G40.909 Epilepsy, unspecified, not intractable, without status epilepticus; Z85.46 Personal history of malignant neoplasm of prostate; I25.10 Atherosclerotic heart disease of native coronary artery without angina pectoris; K21.9 Gastro-esophageal reflux disease without esophagitis; I69.321 Dysphasia following cerebral infarction; Z93.1 Gastrostomy status
CPT/HCPCS: 31500; 31624; 36556; 36600; 71010; 71275; 74177; 76937; 80048; 80053; 81001; 82550; 82805; 83605; 83735; 83880; 84100; 84484; 85025; 85610; 85730; 86850; 86900; 86901; 86920; 86922; 87040; 87641; 93005; 94002; 94640; 94664; 96361; 96365; 96375; C9113; J0171; J0692; J1100; J1170; J1815; J1940; J2020; J2250; J2405; J2930; J3010; J3370; J7030; J7040; J7042; J7050; J7120; J7608; Q9967

== ENCOUNTER 2016-09-20 20:31 | Inpatient (IN) | payer OTHER, MEDICARE ==
[~2016-09-20 20:31] MED LIST changes: +ASPI1TAB69 GT; -ASPI81TA82 PEG; +CARV6.25 G-TUBE; -CORE6.25 PEG; +DIAZ10 PO; +FERR300S GT; -FERR300S PO; -LISI10 PEG; +LISI10TA3 GT; +PREV15CA15 PO; -PREV15CA20 PO; +QUET1TAB7 GT; -QUET25 PO; +QUET5TAB PO; -ZOLP10TA3 PO
[2016-09-20] MEDS ORDERED: ONDANSETRON HCL 4 MG/2 ML VIAL IVP PRN (22:30)
[2016-09-20] MEDS ORDERED: NALOXONE HCL 0.4 MG/ML AMP IV PRN (22:30)
[2016-09-20 22:31] VITALS: O2SAT 96
[2016-09-20 23:00] VITALS: BP 152/113; PULSE 87; PULSE 90; RESP 25; TEMP 98.6; O2SAT 99
[2016-09-20] MEDS ORDERED: DULC10SU3 RECTAL (23:16)
[2016-09-20] MEDS ORDERED: CARV6.25 (23:16)
[2016-09-20] MEDS ORDERED: LORA2TAB7 PO (23:16)
[2016-09-20] MEDS ORDERED: LABE100T2 IV PUSH (23:16)
[2016-09-20] MEDS ORDERED: ACET325T G-TUBE (23:16)
[2016-09-20] MEDS ORDERED: PROT40TA (23:16)
[2016-09-20] MEDS ORDERED: MIRA33504 PO (23:16)
[2016-09-20] MEDS ORDERED: ZOFR4TAB IV PUSH (23:16)
[2016-09-20] MEDS ORDERED: ROBIDM5S IV (23:16)
[2016-09-20] MEDS ORDERED: HEPAR10KP SQ (23:16)
[2016-09-20] MEDS ORDERED: COLA100C3 PO (23:16)
[2016-09-20] MEDS ORDERED: VALP250 PO (23:16)
[2016-09-20] MEDS ORDERED: HYDR10TA23 IV PUSH (23:16)
[2016-09-20] MEDS ORDERED: GLUC0.8I2 SQ (23:16)
[2016-09-20] MEDS ORDERED: DEXTR50%P IV PUSH (23:16)
[2016-09-20] MEDS ORDERED: TAMS5CAP PO (23:16)
[2016-09-20] MEDS ORDERED: ASPI81CH PEG (23:16)
[2016-09-20] MEDS ORDERED: LIDO2.5C17 (23:16)
[2016-09-20] MEDS ORDERED: GLYC1TAB17 PO (23:16)
[2016-09-20] MEDS ORDERED: BENZ1TAB PO (23:16)
[2016-09-20] MEDS ORDERED: HYDR2TAB IV PUSH (23:16)
[2016-09-20] MEDS ORDERED: ALBU.5I NEB (23:16)
[2016-09-20] MEDS ORDERED: ALBU2TAB4 PO (23:16)
[2016-09-20] MEDS ORDERED: TOBR1NEB NEB (23:16)
[2016-09-20] MEDS ORDERED: [UNRECOGNIZED DRUG - CODE] IV (23:16)
[2016-09-20] MEDS ORDERED: KEPP10002 PO (23:16)
[2016-09-20] MEDS ORDERED: SENO8.6T5 PO (23:16)
--- NOTE | 2016-09-20 23:51 | HHI.HP ---
HPI Service [facility] Primary Care Physician No Primary Care Physician Admission Diagnosis Diagnoses: Chief Complaint: Unable to give history Travel History International Travel<30 Days: No Contact w/Intl Traveler <30 Da: No Traveled to Known Affected Are: No History of Present Illness History from EMR and transfer notes from [facility]. Patient was transferred from our hospital to [facility] in [place] on July 01, 2016. He was admitted to our hospital on June 30, 2016. Patient is a trach dependent and PEG dependent patient since about 2010 when we first saw him at our hospital. In June of this year, he presented to our emergency room and was admitted to the electric deicer inspector service. He was having blood clots through his PEG tube as well with respiratory failure requiring ventilator support. He has had history of tracheomalacia with tracheal stent placed in [facility] about 2 years prior. Subsequent workup here in June revealed his tracheal stent 80%occlusion with debris versus mass. Therapeutic bronchoscopy was done here which shows near complete occlusion of tracheal stent with organized clots and mucous. He was managed overnight by electric deicer inspector team and was transferred to [facility] because of this tracheal stent occlusion with hemoptysis. Patient was managed at [facility] for this tracheal stent occlusion and underwent multiple bronchoscopies and tracheostomy revision and tracheal stent revision with new stent placement. He also had cardiac is rest while in hospital on August 13, 2016 and August 14, 2016. He required ventilator support during the hospitalization and currently on FiO2 of 28% through trach. He was managed there for pseudomonas pneumonia with colonization and MRSA from bronchial lavage. 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 He was also managed for massive distention of the colon suspicious for volvulus versus ileus. He was finally stabilized and managed on PCU service at present and transferred to our facility back today for further care. 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 Negative MRI studies. Massive colonic distention in the right hemiabdomenileus versus sigmoid volvulus on KUB at [facility]. Not a surgical candidate per surgery at that time. Hypertension Diabetesdiet controlled CAD Echocardiogrammild LV diastolic dysfunction. Mild to moderate mitral regurgitation. Moderate tricuspid regurgitation. Otherwise normal contractilityFebruary 2016 Prostate cancer Dementia Seizure disorder AAArepaired Paranoid schizophreniaper records in 2010 when he presented here from the ID residential Anemia Anxiety GERD Past Surgical History [id number] PEG tube [id number] Tracheal stentaround 2014September 14, 2016tracheostomy tube removal and replacement, tracheostomy stent revision and stent placement, with flexible and rigid bronchoscopy July 19, 2016tracheostomy procedure BronchoscopiesFebruary 2016, July 26, 2016 Reported Medications Med list from the transfer notes reviewed Aspirin 81 mg daily Benztropine 1 mg twice a day Coreg 6.25 mg twice a day Colace 100 mg by mouth twice a day Glycopyrrolate 1 mg by mouth 3 times a day Robitussin 10 mL by mouth every 6 hours when necessary Heparin 5000 units subcutaneous every 8 hours Lispro sliding scale coverage Keppra 1500 mg by mouth twice a day Protonix 40 mg by mouth daily Senokot 5 mg by mouth twice a day Flomax 0.4 mg by mouth daily at bedtime To mycin 300 mg inhaled twice a day Depakote 1500 mg by mouth every 8 hours Tylenol 650 mg when necessary Albuterol when necessary Hydralazine 20 mg IV every 4 hours when necessary Dilaudid 0.5 mg IV every hour when necessary Labetalol 20 mg IV every 4 hours when necessary Ativan 2 mg by mouth every 8 hours when necessary mag sulfate when necessary Zofran when necessary Electrolyte protocol Allergies: Coded Allergies: Penicillin (Verified Allergy, Unknown, 06/30/16) *MDRO Multi-Drug Resistant Organism (Verified Adverse Reaction, Unknown, MRSA, 07/03/16) MRSA PCR screen POSITIVE - 07/01/16 Codeine (Verified Adverse Reaction, Unknown, Anaphylaxis, 06/30/16) Family History Unknown Social History Previous history of smoking. Quit in 2009. Remote history of alcohol abuse. No IV drug abuse. Was previously living with his daughter and son-in-law. Physical Exam Vital Signs Vital Signs Date Time Temp Pulse Resp B/P Pulse Ox O2 Delivery O2 Flow Rate FiO2 09/20/16 22:31 96 Trach Collar 28 Physical Exam GENERAL: This is a gentleman, noncommunicative, trach dependent, packed dependent SKIN: Sacral decubiti with wound packing and discharge HEAD: Atraumatic. Normocephalic. EYES: Left-sided ptosis No scleral icterus. No injection or drainage. ENT: Nose without bleeding, purulent drainage or septal hematoma Airway patent. Tracheostomy in place NECK: Trachea midline. No JVD CARDIOVASCULAR: Regular rate and rhythm without murmurs, gallops, or rubs. RESPIRATORY: Bilaterally decreased air entry GASTROINTESTINAL: Abdomen soft, non-tender, nondistended.No guarding. No superpubic tenderness. Does not have a Person. MUSCULOSKELETAL: Bilateral lower extremity contracture. Atrophic. No calf asymmetry. NEUROLOGICAL: Spontaneously opens his eyes. However not really tracking. Does not follow any commands. Bilateral upper and lower extremity contractures with muscle atrophy. 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 Negative MRI studies. Massive colonic distention in the right hemiabdomenileus versus sigmoid volvulus on KUB at [facility]. Not a surgical candidate per surgery at that time. Hypertension Diabetesdiet controlled CAD Echocardiogrammild LV diastolic dysfunction. Mild to moderate mitral regurgitation. Moderate tricuspid regurgitation. Otherwise normal contractilityFebruary 2016 Prostate cancer Dementia Seizure disorder AAArepaired Paranoid schizophreniaper records in 2010 when he presented here from the ID residential Anemia Anxiety GERD Plan: Resume tobramycin inhaled. Resume medications from [facility] transfer notes. Monitor fingersticks. No sliding scale coverage. Bowel regimen. Watch for worsening ileus. Turn patient every 2 hours. Suction patient every 2 hours. To clarify CODE STATUS with family members in a.m. Per [facility] notes, patient has limited CODE STATUS. DVT prophylaxis with heparin. GI prophylaxis on pantoprazole. Discussed Condition With Patient's nurse Physician Certification 2 Midnight Certification Type: Admission for Inpatient Services Order for Inpatient Services The services are ordered in accordance with Medicare regulations or non- Medicare payer requirements, as applicable. In the case of services not specified as inpatient-only, they are appropriately provided as inpatient services in accordance with the 2-midnight benchmark. Estimated LOS (days): 3 days is the estimated time the patient will need to remain in the hospital, assuming treatment plan goals are met and no additional complications. Post-Hospital Plan: Not yet determined Alexa Garcia MD Sep 20, 2016 23:51
[2016-09-21] VITALS (29 sets, daily range): BP systolic 109–158; BP diastolic 84–119; PULSE 62–106; RESP 16–20; TEMP 97.7–98.6; O2SAT 85–100
[2016-09-21] MEDS ORDERED: ACETAMINOPHEN 325 MG TAB PEG PRN (01:30)
[2016-09-21] MEDS ORDERED: DEXTROSE 50% IN WATER 50 ML VIAL(D50) IV PUSH PRN (01:30)
[2016-09-21] MEDS ORDERED: BISACODYL 10 MG SUPP RECTAL PRN (01:30)
[2016-09-21] MEDS ORDERED: GLUCAGON 1 MG/ML VIAL OTHER PRN (01:30)
[2016-09-21] MEDS ORDERED: LORazepam 2 MG TAB PEG PRN (01:30)
[2016-09-21] MEDS ORDERED: ONDANSETRON HCL 4 MG/2 ML VIAL IV PUSH PRN (01:30)
[2016-09-21] MEDS: RESP: ALBUTEROL 2.5 MG/3 ML NEB (SCH) NEB ×5 (03:35→20:01)
[2016-09-21] MEDS ORDERED: VALPROIC ACID SYRUP 250 MG/5 ML UDC PO SCH (06:00)
[2016-09-21] MEDS ORDERED: VALPROIC ACID 250 MG CAP PO SCH (06:00)
[2016-09-21] MEDS ORDERED: HEPARIN SODIUM - IV 10,000 UNITS/10 ML VIAL IV SCH (06:00)
[2016-09-21 06:28] LABS: INTERNATIONAL NORMALIZED RATIO 1.1 RATIO; PROTHROMBIN TIME - PATIENT 11.7 SEC (9.8-11.6)
[2016-09-21 06:43] LABS: BICARBONATE 34.7 MEQ/L (21.0-32.0); POTASSIUM 5.3 MEQ/L (3.5-5.1)
[2016-09-21 07:20] LABS: RED BLOOD COUNT 3.09 MIL/MM3 (4.50-5.90); WHITE BLOOD COUNT 6.5 TH/MM3 (4.0-11.0)
[2016-09-21 07:21] LABS: AUTOMATED NEUTROPHIL # 3.7 TH/MM3 (1.8-7.7); BASOPHIL # 0.2 TH/MM3 (0-0.2); BASOPHIL % 3.6 % (0.0-2.0); EOSINOPHIL # 0.2 TH/MM3 (0-0.4); EOSINOPHIL % 3.7 % (0.0-4.0); HEMATOCRIT 29.2 % (39.0-51.0); HEMO FLAGS DIFF FINAL; LYMPHOCYTE # 1.3 TH/MM3 (1.0-4.8); MEAN CELL VOLUME 94.5 FL (80.0-100.0); MEAN CORPUSCULAR HEMOGLOBIN 30.9 PG (27.0-34.0); MEAN CORPUSCULAR HGB CONC 32.7 % (32.0-36.0); MONO % 16.1 % (0.0-8.0); NEUT % 56.6 % (16.0-70.0); PLATELET COUNT 141 TH/MM3 (150-450); RED CELL DISTRIBUTION WIDTH 22.1 % (11.6-17.2)
[2016-09-21] MEDS: RESP: TOBRAMYCIN SULFATE 300 MG/5 ML NEB NEB SCH ×2 (08:06→20:01)
[2016-09-21] MEDS ORDERED: PANTOPRAZOLE SOD 40 MG DELAYED RELEASE TAB PO SCH (09:00)
[2016-09-21] MEDS ORDERED: BENZTROPINE MESYLATE 1 MG TAB PO SCH (09:00)
[2016-09-21] MEDS ORDERED: CARVEDILOL 6.25 MG TAB G-TUBE SCH (09:00)
[2016-09-21] MEDS ORDERED: levETIRAcetam 500 MG TAB PO SCH (09:00)
[2016-09-21] MEDS ORDERED: GLYCOPYRROLATE 1 MG TAB PO SCH (09:00)
[2016-09-21] MEDS: SODIUM CHLORIDE 0.9% FLUSH 10 ML FLUSH IV FLUSH SCH ×2 (09:47→22:19)
[2016-09-21] MEDS: ASPIRIN 81 MG CHEW TAB PEG SCH (09:47)
[2016-09-21] MEDS: levETIRAcetam 500 MG/5 ML UDC PEG SCH ×2 (10:44→22:18)
[2016-09-21] MEDS: PANTOPRAZOLE SODIUM 40 MG VIAL IV PUSH SCH (10:44)
--- NOTE | 2016-09-21 12:21 | HHI.PR ---
Subjective Remarks Patient opens eyes only, non verbal afebrile bp stable as per RN no residuals prior - now there are some residuals on t piece with good o2 sating 97% Objective Vitals Vital Signs Date Time Temp Pulse Resp B/P Pulse Ox O2 Delivery O2 Flow Rate FiO2 09/21/16 11:00 T-Piece 6.00 28 09/21/16 11:00 98.2 94 18 139/103 97 09/21/16 11:00 96 09/21/16 10:13 64 09/21/16 09:00 62 09/21/16 08:07 97 09/21/16 07:00 99 16 147/113 99 09/21/16 07:00 T-Piece 6.00 28 09/21/16 07:00 99 09/21/16 06:00 97 09/21/16 05:00 96 09/21/16 04:00 93 09/21/16 03:14 82 09/21/16 03:00 98 T-Piece 6.00 28 09/21/16 03:00 97.7 82 19 117/87 97 09/21/16 02:00 83 09/21/16 01:00 87 09/21/16 00:00 94 09/20/16 23:00 98.6 87 25 152/113 99 09/20/16 23:00 90 09/20/16 23:00 94 Aerosol Mask 6.00 28 09/20/16 22:31 96 Trach Collar 28 I/O 09/20/16 09/20/16 09/20/16 09/21/16 09/21/16 09/21/16 07:00 15:00 23:00 07:00 15:00 23:00 Intake Total 0 ml Output Total 550 ml Balance -550 ml Intake Oral 0 ml Output Urine Total 550 ml Result Diagram: 09/21/16 0546 09/21/16 0546 Objective Remarks GENERAL: This is a gentleman, noncommunicative, trach dependent, packed dependent SKIN: Sacral decubiti with wound packing and discharge HEAD: Atraumatic. Normocephalic. EYES: Left-sided ptosis No scleral icterus. No injection or drainage. ENT: Nose without bleeding, purulent drainage or septal hematoma Airway patent. Tracheostomy in place NECK: Trachea midline. No JVD CARDIOVASCULAR: Regular rate and rhythm without murmurs, gallops, or rubs. RESPIRATORY: Bilateral rhonchi, no wheezing. No crackles auscultated. GASTROINTESTINAL: Abdomen soft, non-tender, nondistended. No guarding. No suprapubic tenderness. PEG in place, no erythema or purulent discharge observed. MUSCULOSKELETAL: Bilateral lower extremity contracture. Atrophic. No calf asymmetry. NEUROLOGICAL: Spontaneously opens his eyes. However not really tracking. Does not follow any commands. Bilateral upper and lower extremity contractures with muscle atrophy. Medications and IVs Current Medications Medications (Trade) Dose Ordered Sig/Harry Route Start Time Stop Time Status Last Admin (NS Flush) 2 ml UNSCH PRN IV FLUSH 09/20/16 22:30 (NS Flush) 2 ml BID IV FLUSH 09/21/16 09:00 09/21/16 09:47 (Zofran Inj) 4 mg Q6H PRN IVP 09/20/16 22:30 (Narcan Inj) 0.4 mg UNSCH PRN IV 09/20/16 22:30 (Tylenol) 650 mg Q6HR PRN PEG 09/21/16 01:30 (Aspirin Chew) 81 mg DAILY PEG 09/21/16 09:00 09/21/16 09:47 (Dulcolax Supp) 10 mg DAILY PRN RECTAL 09/21/16 01:30 (Heparin Inj) 5,000 units Q8HR IV 09/21/16 06:00 09/21/16 06:19 (Ativan) 2 mg Q8HR PRN PEG 09/21/16 01:30 (Zofran Inj) 4 mg Q4HR PRN IV PUSH 09/21/16 01:30 (D50w (Vial) Inj) 25 ml UNSCH PRN IV PUSH 09/21/16 01:30 (Glucagon Inj) 1 mg UNSCH PRN OTHER 09/21/16 01:30 (Keppra Liq) 1,500 mg BID PEG 09/21/16 10:00 09/21/16 10:44 (Protonix Inj) 40 mg DAILY IV PUSH 09/21/16 10:01 09/21/16 10:44 (Cogentin) 1 mg BID PEG 09/21/16 21:00 (Coreg) 6.25 mg BID PEG 09/21/16 21:00 (Robinul) 1 mg TID PEG 09/21/16 13:00 (Depakene Liq) 1,500 mg Q8HR PEG 09/21/16 14:00 Urinary Catheter: Yes Assessment to: Continue Person insert reason: Prolonged Immobilization Vascular Central Line Catheter: No A/P Problem List: (1) Hyperkalemia ICD Code: E87.5 Status: Acute Plan: Mild hyperkalemia DC him. Repeat BMP. If still elevated then will treat. (2) Chronic respiratory failure ICD Code: J96.10 Status: Chronic Plan: Status post tracheostomy since 2009. 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 Tracheal stent occlusion with clots and debris on 07/01/16 status post revision History of recurrent Pseudomonas pneumonia with likely colonization History of Pseudomonas and stenotrophomonas lower respiratory tract infection from his bronchoscopy 07/04/16. Rectal stent dislodgment status post removal of the fracture stent and placement of new stent on 07/11/16, stent revision on 07/17/16. New stent placement on 08/03/16. Continue duo nebs, the patient currently on T piece Continue inhaled tobramycin We'll consult pulmonology to help on trach management. (3) Seizure disorder ICD Code: G40.909 Status: Chronic Plan: EEG done at for the hospital showing epileptic discharges persistently. Negative MRI studies. Continue current anticonvulsants. Patient currently on Keppra 1500 mg via PEG twice a day. We'll repeat EEG study. (4) Tracheostomy in place ICD Code: Z93.0 Status: Chronic Plan: And Mary with trach care, suctioning as needed, aspiration precautions. Patient with high residuals. Hold PEG tube feedings for now. I will consult dietitian for tube feeding goal recommendations. (5) S/P percutaneous endoscopic gastrostomy (PEG) tube placement ICD Code: Z93.1 Status: Chronic Plan: Patient with elevated residuals now. Ordered nurse to hold tube feedings for now. I will consult dietitian for the present tube feedings goals. Will also place the patient on Reglan. (6) H/O cardiac arrest ICD Code: Z86.74 Status: Chronic Plan: Patient has history of cardiac arrest on August 13 on 08/14/16. Continue to monitor on telemetry. I will order a palliative care consultation to help address goals of care and establish a clear CODE STATUS since as per documentation the patient has a limited DO NOT RESUSCITATE. 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 (8) Dementia ICD Code: F03.90 Status: Chronic Plan: Patient currently on Cogentin, Ativan as needed for anxiety. (9) Schizophrenia ICD Code: F20.9 Status: Chronic Plan: Not on any medications at this point. (10) Diabetes mellitus type 2, controlled ICD Code: E11.9 Status: Chronic Plan: Diet controlled. Blood sugar seems to be stable. Not on sliding scale. (11) CAD (coronary artery disease) ICD Code: I25.10 Status: Chronic Plan: Seems to be stable. Continue aspirin 81 mg. Assessment and Plan GI prophylaxis: Continue PPI. DVT plexus: SCDs, I will add heparin subcutaneously. Discharge Planning Continue to monitor in the medical floor. Patient will need placement into an KING. Problem Qualifiers (1) Chronic respiratory failure: Qualified Code: J96.10 - Chronic respiratory failure, unspecified whether with hypoxia or hypercapnia (2) Dementia: Qualified Code: F03.90 - Dementia without behavioral disturbance, unspecified dementia type (3) Diabetes mellitus type 2, controlled: Qualified Code: E11.8 - Controlled type 2 diabetes mellitus with complication, without long-term current use of insulin Ezequiel Pelletier MD Sep 21, 2016 12:21
[2016-09-21] MEDS: METOCLOPRAMIDE HCL 10 MG/2 ML VIAL IV PUSH SCH ×2 (13:25→22:20)
[2016-09-21] MEDS: VALPROIC ACID SYRUP 250 MG/5 ML UDC PEG SCH ×2 (13:26→22:20)
[2016-09-21] MEDS: HEPARIN SODIUM - SQ 10,000 UNITS/ML VIAL SQ SCH ×2 (13:34→22:20)
[2016-09-21] MEDS: GLYCOPYRROLATE 1 MG TAB PEG SCH ×2 (13:52→18:14)
[2016-09-21 14:14] LABS: BICARBONATE 33.4 MEQ/L (21.0-32.0); POTASSIUM 5.4 MEQ/L (3.5-5.1)
[2016-09-21] MEDS: TAMSULOSIN HCL 0.4 MG CAP PO SCH (16:00)
[2016-09-21] MEDS: CARVEDILOL 6.25 MG TAB PEG SCH (22:18)
[2016-09-21] MEDS: BENZTROPINE MESYLATE 1 MG TAB PEG SCH (22:18)
[2016-09-22] VITALS (21 sets, daily range): BP systolic 96–175; BP diastolic 55–109; PULSE 65–105; RESP 18–24; TEMP 97.3–99; O2SAT 81–100
[2016-09-22] MEDS: RESP: ALBUTEROL 2.5 MG/3 ML NEB (SCH) NEB ×6 (00:36→20:12)
[2016-09-22] MEDS ORDERED: cloNIDine HCL 0.1 MG TAB PEG ONE (02:00)
[2016-09-22] MEDS: METOCLOPRAMIDE HCL 10 MG/2 ML VIAL IV PUSH SCH ×3 (06:00→22:44)
[2016-09-22] MEDS: VALPROIC ACID SYRUP 250 MG/5 ML UDC PEG SCH ×3 (06:00→22:00)
[2016-09-22] MEDS: HEPARIN SODIUM - SQ 10,000 UNITS/ML VIAL SQ SCH ×3 (06:00→22:43)
[2016-09-22 07:16] LABS: ANION GAP 7 MEQ/L (5-15); AST (GOT) 38 U/L (15-37); BICARBONATE 33.4 MEQ/L (21.0-32.0); CHLORIDE 93 MEQ/L (98-107); GLOMERULAR FILTRATION RATE 120 ML/MIN (>89); MAGNESIUM 2.2 MG/DL (1.5-2.5); SODIUM (NA) 133 MEQ/L (136-145)
[2016-09-22 07:21] LABS: BLOOD UREA NITROGEN 22 MG/DL (7-18)
[2016-09-22 07:29] LABS: ALT (GPT) 11 U/L (12-78)
[2016-09-22 07:31] LABS: ALKALINE PHOSPHATASE 132 U/L (45-117); TOTAL BILIRUBIN ADULT 0.3 MG/DL (0.2-1.0)
[2016-09-22 08:15] LABS: AUTOMATED NEUTROPHIL # 6.3 TH/MM3 (1.8-7.7); BASOPHIL # 0.1 TH/MM3 (0-0.2); BASOPHIL % 0.9 % (0.0-2.0); EOSINOPHIL # 0.1 TH/MM3 (0-0.4); EOSINOPHIL % 1.5 % (0.0-4.0); HEMATOCRIT 31.3 % (39.0-51.0); HEMO FLAGS DIFF FINAL; LYMPH % 13.1 % (9.0-44.0); LYMPHOCYTE # 1.2 TH/MM3 (1.0-4.8); MEAN CORPUSCULAR HEMOGLOBIN 30.7 PG (27.0-34.0); MEAN CORPUSCULAR HGB CONC 33.3 % (32.0-36.0); NEUT % 68.5 % (16.0-70.0); PLATELET COUNT 132 TH/MM3 (150-450); RED CELL DISTRIBUTION WIDTH 22.3 % (11.6-17.2); WHITE BLOOD COUNT 9.2 TH/MM3 (4.0-11.0)
--- NOTE | 2016-09-22 08:27 | MB ---
cc: LEE ANDERSON ROLANDO MD DATE OF CONSULTATION: 09/21/[address] Chen REASON FOR CONSULTATION Tracheostomy management. HISTORY OF PRESENT ILLNESS Mr. Cesar is a 80-year -[place] male who was transferred from [facility]. He was initially admitted to the hospital on July 01. At that time he had a problem with the tracheostomy tube. He has a history of tracheostomy and he has a tracheal stent. He had a problem with the stent and he was sent to [facility] where he had multiple procedures done. The trach was revised and clots were removed. While he was over there he had multiple bronchoscopies, cardiac arrest x2 and multiple infections. Now he is sent over here for further management. Currently he is in a trach collar. He has minimal response to painful stimuli. His lab evaluation here reveals WBC count 6.5, hemoglobin 9.5, hematocrit 29.2, MCV 94, platelet count 141. INR is 1.1. Sodium 132, potassium 5.4, chloride 94, CO2 33, BUN 22, creatinine 0.9. PAST MEDICAL HISTORY 1. History of respiratory failure and tracheostomy with stent placement. Now he has revision of the tracheostomy and stent. 2. Cardiac arrest x2. 3. MRSA infection. 4. Stenotrophomonas infection. 5. EEG showed epileptic discharges, but MRA was negative. 6. Hypertension. 7. Diabetes mellitus. 8. Prostate cancer. 9. Seizure disorder. 10.Dementia. 11.Abdominal aortic aneurysm repair. 12.Paranoid schizophrenia. 13.GERD. MEDICATIONS He is currently takin. Cogentin 1 mg twice a day. 2. Coreg 6.25 mg twice a day. 3. Flomax 0.4 mg. 4. Valproic acid 1500 mg q.8h. 5. Heparin 5000 q.8h. 6. Robinul 1 mg three times a day. 7. Protonix 40 mg a day. 8. Tobramycin nebulizer treatment 300 mg q.12h. 9. Aspirin 81 mg a day. 10.Albuterol/Atrovent nebulizer treatment. ALLERGIES 1. CODEINE. 2. PENICILLIN. SOCIAL HISTORY/FAMILY HISTORY Not available. PHYSICAL EXAMINATION GENERAL: A well-developed, well-nourished male in a trach collar, minimal response to painful stimuli. VITAL SIGNS: Blood pressure 109/84, heart rate 80s, respirations 18, temperature 98.2. HEENT: He has ptosis of the left eye. NECK: Supple. He has a tracheostomy tube in place. No significant drainage around it. CHEST: Equal air entry. No rhonchi. CARDIOVASCULAR: S1, S2 normal. ABDOMEN: He has a PEG tube in place. EXTREMITIES: No edema. IMPRESSION 1. Chronic respiratory failure, status post trach placement. 2. Tracheal stent and revision of the tracheostomy. 3. Status post PEG tube placement. 4. Status post cardiac arrest. 5. Seizure disorder. 6. Abdominal aortic aneurysm. 7. History pf paranoid schizophrenia. 8. Dementia. PLAN We will continue with tracheostomy management. He is on a tracheostomy collar. Frequent suctioning as needed. Aerosol treatment, albuterol/Atrovent and tobramycin nebulizer treatment. Further treatment will depend on the course in the hospital. Thank you Dr. Chen for this consult. MD MAGGIE Montesinos/BT /8:40 PM /7:56 AM
[2016-09-22] MEDS: RESP: TOBRAMYCIN SULFATE 300 MG/5 ML NEB NEB SCH ×2 (08:30→20:12)
[2016-09-22] MEDS ORDERED: FUROSEMIDE 40 MG/4 ML VIAL IV PUSH ONE (08:45)
[2016-09-22 08:49] LABS: BLOOD GAS CARBOXYHEMOGLOBIN 2.4 % (0-4); BLOOD GAS HCO3 37 mmol/L (22-26); BLOOD GAS METHEMOGLOBIN 0.8 % (0-2); BLOOD GAS O2 HGB SATURATION 90 % (90-100); BLOOD GAS OXYGEN CONTENT 12.3 Vol % (12.0-20.0); BLOOD GAS PCO2 80 mmHg (38-42); BLOOD GAS PO2 77 mmHg (61-120); BLOOD GAS TOTAL HGB 9.6 G/DL (12.0-16.0); TEMP CORR TO 98.6
[2016-09-22 08:50] LABS: CRITICAL VALUE YES; DRAW SITE RT RADIAL; FIO2 70 %; NUMBER OF ARTERIAL PUNCTURES 1; OXYGEN DEVICE T-PIECE; STAT YES; ULNAR PULSE PRESENT
[2016-09-22] MEDS: BENZTROPINE MESYLATE 1 MG TAB PEG SCH ×2 (09:00→20:10)
[2016-09-22] MEDS ORDERED: CALCIUM CHLORIDE INJ 2 GM in DEXTROSE 5% IN WATER 100ML INJ 100 ML IV ONE ×2 (09:00)
[2016-09-22] MEDS ORDERED: LABETALOL HCL 100 MG/20 ML VIAL IV ONE (09:00)
[2016-09-22] MEDS ORDERED: DEXTROSE 50% IN WATER 50 ML VIAL(D50) IV PUSH ONE ×2 (09:00→12:30)
[2016-09-22] MEDS: levETIRAcetam 500 MG/5 ML UDC PEG SCH ×2 (09:00→20:10)
[2016-09-22] MEDS ORDERED: methylPREDNISolone SOD SUCC 125 MG/2 ML VIAL IV PUSH ONE (09:00)
[2016-09-22] MEDS ORDERED: INSULIN HUMAN REGULAR 1,000 UNITS/10 ML VIAL IV PUSH ONE (09:00)
--- NOTE | 2016-09-22 09:09 | HHI.PR ---
Subjective Remarks Rapid response team called on patient due to oxygen desaturation as per RN patient with oxygen desaturation desating into the mid 80's patient non verbal, very lethargic no reports of fevers as per RN very junky lungs and copius secretions aspirated potassium elevated Rapid response team at bedside Objective Vitals Vital Signs Date Time Temp Pulse Resp B/P Pulse Ox O2 Delivery O2 Flow Rate FiO2 09/22/16 08:22 81 T-piece 70 09/22/16 08:00 98.5 102 24 175/109 91 09/22/16 06:00 96 09/22/16 05:00 96 09/22/16 04:00 98 09/22/16 03:00 105 09/22/16 03:00 97 T-Piece 6.00 40 09/22/16 03:00 97.3 102 20 151/104 97 09/22/16 02:00 98 09/22/16 01:00 98 09/22/16 00:00 96 09/21/16 23:00 96 T-Piece 6.00 40 09/21/16 23:00 103 09/21/16 23:00 98.6 103 20 158/119 96 09/21/16 22:10 85 T-piece 28 09/21/16 22:00 106 09/21/16 21:00 98 09/21/16 20:08 100 T-piece 4.00 28 09/21/16 20:00 94 09/21/16 19:00 105 20 140/109 91 09/21/16 19:00 92 09/21/16 19:00 91 T-Piece 6.00 28 09/21/16 18:00 89 09/21/16 17:00 88 09/21/16 16:03 86 09/21/16 15:29 83 09/21/16 15:00 T-Piece 6.00 28 09/21/16 15:00 98.2 88 18 109/84 100 09/21/16 14:00 96 09/21/16 13:05 92 09/21/16 12:17 99 T-piece 6.00 28 09/21/16 12:00 94 09/21/16 11:00 T-Piece 6.00 28 09/21/16 11:00 98.2 94 18 139/103 97 09/21/16 11:00 96 09/21/16 10:13 64 09/21/16 09:00 62 I/O 09/21/16 09/21/16 09/21/16 09/22/16 09/22/16 09/22/16 07:00 15:00 23:00 07:00 15:00 23:00 Intake Total 0 ml 525 ml 750 ml Output Total 550 ml 800 ml 800 ml Balance -550 ml -275 ml -50 ml Intake Oral 0 ml Tube Feeding 375 ml 450 ml Tube Irrigant 150 ml Other 300 ml Output Urine Total 550 ml 800 ml 800 ml Result Diagram: 09/22/1664009/22/16640 Objective Remarks GENERAL: This is a gentleman, noncommunicative, trach dependent, packed dependent SKIN: Sacral decubiti with wound packing and discharge HEAD: Atraumatic. Normocephalic. EYES: Left-sided ptosis No scleral icterus. No injection or drainage. ENT: Nose without bleeding, purulent drainage or septal hematoma Airway patent. Tracheostomy in place NECK: Trachea midline. No JVD CARDIOVASCULAR: Regular rate and rhythm without murmurs, gallops, or rubs. RESPIRATORY: Bilateral rhonchi, no wheezing. No crackles auscultated. GASTROINTESTINAL: Abdomen soft, non-tender, nondistended. No guarding. No suprapubic tenderness. PEG in place, no erythema or purulent discharge observed. MUSCULOSKELETAL: Bilateral lower extremity contracture. Atrophic. No calf asymmetry. NEUROLOGICAL: Spontaneously opens his eyes. However not really tracking. Does not follow any commands. Bilateral upper and lower extremity contractures with muscle atrophy. Medications and IVs Current Medications Medications (Trade) Dose Ordered Sig/Harry Route Start Time Stop Time Status Last Admin (NS Flush) 2 ml UNSCH PRN IV FLUSH 09/20/16 22:30 (NS Flush) 2 ml BID IV FLUSH 09/21/16 09:00 09/21/16 22:19 (Zofran Inj) 4 mg Q6H PRN IVP 09/20/16 22:30 (Narcan Inj) 0.4 mg UNSCH PRN IV 09/20/16 22:30 (Tylenol) 650 mg Q6HR PRN PEG 09/21/16 01:30 (Aspirin Chew) 81 mg DAILY PEG 09/21/16 09:00 09/21/16 09:47 (Dulcolax Supp) 10 mg DAILY PRN RECTAL 09/21/16 01:30 (Ativan) 2 mg Q8HR PRN PEG 09/21/16 01:30 (Zofran Inj) 4 mg Q4HR PRN IV PUSH 09/21/16 01:30 (D50w (Vial) Inj) 25 ml UNSCH PRN IV PUSH 09/21/16 01:30 (Glucagon Inj) 1 mg UNSCH PRN OTHER 09/21/16 01:30 (Keppra Liq) 1,500 mg BID PEG 09/21/16 10:00 09/21/16 22:18 (Protonix Inj) 40 mg DAILY IV PUSH 09/21/16 10:01 09/21/16 10:44 (Cogentin) 1 mg BID PEG 09/21/16 21:00 09/21/16 22:18 (Coreg) 6.25 mg BID PEG 09/21/16 21:00 09/21/16 22:18 (Robinul) 1 mg TID PEG 09/21/16 13:00 09/21/16 18:14 (Depakene Liq) 1,500 mg Q8HR PEG 09/21/16 14:00 09/22/16 06:00 (Heparin Inj) 5,000 units Q8HR SQ 09/21/16 14:00 09/22/16 06:00 (Reglan Inj) 5 mg Q8HR IV PUSH 09/21/16 14:00 09/22/16 06:00 (Trandate Inj) 10 mg NOW ONCE IV 09/22/16 09:00 09/22/16 09:01 09/22/16 08:17 (SoluMEDROL INJ) 125 mg ONCE ONCE IV PUSH 09/22/16 09:00 09/22/16 09:01 (D50w (Vial) Inj) 25 ml ONCE ONCE IV PUSH 09/22/16 09:00 09/22/16 09:01 Insulin Human Regular 10 units 10 units ONCE ONCE IV PUSH 09/22/16 09:00 09/22/16 09:01 (Calcium Chloride Inj/D5W 100 ml Inj) 120 ml @ 120 mls/hr ONCE ONCE IV 09/22/16 08:45 09/22/16 09:44 UNV (Lasix Inj) 40 mg ONCE ONCE IV PUSH 09/22/16 08:45 09/22/16 08:46 UNV Urinary Catheter: Yes Assessment to: Continue Person insert reason: Prolonged Immobilization Vascular Central Line Catheter: No A/P Problem List: (1) [id number] respiratory failure ICD Code: J96.20 Status: Acute Plan: Patient with acute episode of hypoxemia into the 80's, suspect aspiration. check stat chest x ray, ABG, Ordered Solumedrol 125 mg IV stat and 40 mg Iv Lasix. Transfer patient to ICU - patient may need to be put on the vent ABG shows respiratory acidosis with pH of 7.28, PCO2 80, PO2 of 77 and oxygen saturations of 90. We'll place the patient on ventilator. Consult strike on machine operator. (2) Hyperkalemia ICD Code: E87.5 Status: Acute Plan: Potassium elevated at 6.0 Will give D50 and Regular insulin IV. 2 grams of IV calcium chloride and 40 mg of IV lasix. check BMP in one hour. (3) Seizure disorder ICD Code: G40.909 Status: Chronic Plan: EEG done at for the hospital showing epileptic discharges persistently. Negative MRI studies. Continue current anticonvulsants. Patient currently on Keppra 1500 mg via PEG twice a day. 09/22 daughter refusing Depakote and Keppra. Will order neurology consult and order EEG. (4) Tracheostomy in place ICD Code: Z93.0 Status: Chronic Plan: Continue with trach care, suctioning as needed, aspiration precautions. Patient with high residuals. Hold PEG tube feedings for now. I will consult dietitian for tube feeding goal recommendations. (5) S/P percutaneous endoscopic gastrostomy (PEG) tube placement ICD Code: Z93.1 Status: Chronic Plan: Patient with high residuals on 09/21 - started on Reglan IV scheduled. Diet consulted. (6) H/O cardiac arrest ICD Code: Z86.74 Status: Chronic Plan: Patient has history of cardiac arrest on August 13 on 08/14/16. Continue to monitor on telemetry. I will order a palliative care consultation to help address goals of care and establish a clear CODE STATUS since as per documentation the patient has a limited DO NOT RESUSCITATE. 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 (8) Dementia ICD Code: F03.90 Status: Chronic Plan: Patient currently on Cogentin, Ativan as needed for anxiety. (9) Schizophrenia ICD Code: F20.9 Status: Chronic Plan: Not on any medications at this point. (10) Diabetes mellitus type 2, controlled ICD Code: E11.9 Status: Chronic Plan: Diet controlled. Blood sugar seems to be stable. Not on sliding scale. (11) CAD (coronary artery disease) ICD Code: I25.10 Status: Chronic Plan: Seems to be stable. Continue aspirin 81 mg. (12) Encephalopathy acute ICD Code: G93.40 Status: Acute Plan: Unclear what baseline is since patient had 2 cardiac arrests over at [facility]. Patient is more lethargic today - duet to Co2 retention and anoxic encephalopathy. Shows a pH of 7.28, PCO2 of 80, PO2 77. We'll place the patient on the ventilator. Assessment and Plan GI prophylaxis: Continue PPI. DVT plexus: SCDs, I will add heparin subcutaneously. 35 minutes of critical care time spent with patient. Discharge Planning Continue to monitor in the medical floor. Patient will need placement into an [facility]. Problem Qualifiers (1) Dementia: Qualified Code: F03.90 - Dementia without behavioral disturbance, unspecified dementia type (2) Diabetes mellitus type 2, controlled: Qualified Code: E11.8 - Controlled type 2 diabetes mellitus with complication, without long-term current use of insulin Ezequiel Pelletier MD Sep 22, 2016 09:09
[2016-09-22] MEDS: SODIUM CHLORIDE 0.9% FLUSH 10 ML FLUSH IV FLUSH SCH ×2 (09:51→20:10)
[2016-09-22] MEDS: PANTOPRAZOLE SODIUM 40 MG VIAL IV PUSH SCH (09:53)
[2016-09-22] MEDS: GLYCOPYRROLATE 1 MG TAB PEG SCH ×2 (09:53→18:38)
[2016-09-22] MEDS: ASPIRIN 81 MG CHEW TAB PEG SCH (09:54)
[2016-09-22] MEDS: CARVEDILOL 6.25 MG TAB PEG SCH ×2 (09:54→20:09)
--- NOTE | 2016-09-22 10:10 | RADRPT ---
EXAM DATE/TIME: 09/22/2016 08:28 [place] COMPARISON: CHEST SINGLE AP, July 01, 2016, 5:10. INDICATIONS : Low O2. MEDICAL HISTORY : Hypertension. Chronic obstructive pulmonary disease. Gastroesophageal reflux disease. Diabetes. Prost ate carcinoma SURGICAL HISTORY : Umbilical hernia repair. ENCOUNTER: Initial ACUITY: 1 day PAIN SCORE: Non-responsive. LOCATION: Bilateral chest FINDINGS: Trache tube is in good position. Esophageal stent is present. The heart is minimally enlarged. Pul monary vascularity is normal. There is no alveolar consolidation or pneumothorax. CONCLUSION: Trache in good position otherwise stable. Dru Wilkes MD FACR on September 22, 2016 at 10:02 Board Certified Radiologist. This report was verified electronically.
--- NOTE | 2016-09-22 10:39 | PD.CONS ---
Consult Service Palliative Care . Consult Requested By Dr. Chen . Primary Care Physician No Primary Care Physician . Reason for Consultation a. To assist with evaluation and management of symptoms including: dyspnea, debility, pain b. To assist medical decision maker(s) with: better understanding of current medical conditions; weighing benefits/burdens of medical treatment options; making medical treatment decisions. . HPI History of Present Illness Mr. Cesar is a 80-year-old male patient who was initially transferred back to [facility] from [facility] [place] on 09/20/2016. He was initially admitted to [facility] on June 30, 2016. 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 Upon admission in June the patient had blood clots coming through his PEG tube as well as respiratory failure which required ventilator support. A subsequent workup during that hospitalization revealed 80% occlusion of the tracheal stent with debris versus mass. The following day the patient was transferred to [facility] and underwent multiple bronchoscopies and tracheostomy revision with new stent placement. While hospitalized in [place], the patient went into cardiac arrest 2. Of note, additional past medical history is significant for dementia, prostate cancer, coronary artery disease, diabetesnow diet controlled, hypertension, seizure disorder, COPD, paranoid schizophrenia. A Halicat was called this morning when the patient was noted to be lethargic and hypoxic. An ABG revealed PCO2 in the 80s. The patient was transferred to [facility] and critical care was consulted. The patient was placed on mechanical ventilator. A chest x-ray revealed that the heart is minimally enlarged, pulmonary vascularity is normal, no alveolar consolidation or pneumothorax. = WBC: 9.2, hemoglobin 10.4, hematocrit 31.3, platelets 132, neutrophils 68.5% = Sodium: 133, potassium 6.0, chloride 93, carbon dioxide 33.4, glucose 134, calcium 9.4, phosphorus 3.4, magnesium 2.2 = BUN: 22, creatinine 0.76, GFR 120 = Total bilirubin: 0.3, AST 38, ALT 11, alkaline phosphatase 132 = Total protein: 9.5, albumin 2.2 Palliative Care was consulted to assist with symptom management and to discuss with the family the benefits and burdens of her current illnesses and the options regarding future care. . Function/Cognitive Trajectory Mr. Cesar is a 80-year-old male with a complex medical history. Status post tracheostomy and PEG tube placement in 2009 with history of multiple aspirations. Patient has been hospitalized since June 30, 2016 for management of tracheal stent occlusion, undergoing multiple bronchoscopies and tracheostomy revision with tracheal stent replacement. He was managed there for Pseudomonas pneumonia with comments colonization of MRSA from bronchial lavage. He had a AAA repair there. Status post cardiac arrest 2 in July,. Patient transferred back to [facility] on 09/20/16. A Halicat was called this morning after being found nonverbal, lethargic and hypoxic. An ABG revealed PCO2 in the 80s. Patient was transferred to [facility] and critical care was consulted. . Review of Systems ROS Limitations: Clinical Condition, Intubated, Altered Mental Status Constitutional: COMPLAINS OF: Fatigue, Weight gain (10 pound weight gain in the past 2 months per documentation), Generalized weakness Eyes: DENIES: Eye inflammation Ears, nose, mouth, throat: DENIES: Nasal discharge, Running Nose, Epistaxis Respiratory: COMPLAINS OF: Shortness of breath, DENIES: Hemoptysis Cardiovascular: DENIES: Lower Extremity Edema Gastrointestinal: COMPLAINS OF: Difficulty Swallowing Integumentary: COMPLAINS OF: Non-healing sores (sacral decubiti with wound packing and discharge) Hematologic/Lymphatics: DENIES: History of transfusions Neurologic: COMPLAINS OF: Seizures, Speech Problems (nonverbal) Psychiatric: DENIES: Agitation Past Family Social History Coded Allergies: Penicillin (Verified Allergy, Unknown, 06/30/16) *MDRO Multi-Drug Resistant Organism (Verified Adverse Reaction, Unknown, MRSA, 07/03/16) MRSA PCR screen POSITIVE - 07/01/16 Codeine (Verified Adverse Reaction, Unknown, Anaphylaxis, 06/30/16) Past Medical History COPD History of urosepsis Hypertension CAD Echocardiogrammild LV diastolic dysfunction. Mild to moderate mitral regurgitation. Moderate tricuspid regurgitation. Otherwise normal contractilityFebruary 2016 Prostate cancer Dementia Seizure disorder AAArepaired Paranoid schizophreniaper records in 2010 when he presented here from the [place] [facility] Anemia Anxiety GERD Recurrent Pseudomonas pneumonialikely colonization Status post PEA arrest-08/13/2016 and 08/14/2016 History of MRSA History of C. difficile . Past Surgical History [id number] PEG tube [id number] Tracheal stentaround 2014September 14, 2016tracheostomy tube removal and replacement, tracheostomy stent revision and stent placement, with flexible and rigid bronchoscopy July 19, 2016tracheostomy procedure BronchoscopiesFebruary 2016, July 26, 2016 AAA repair Umbilical hernia repair Left inguinal hernia repair . Reported Medications Med list from the transfer notes reviewed Aspirin 81 mg daily Benztropine 1 mg twice a day Coreg 6.25 mg twice a day Colace 100 mg by mouth twice a day Glycopyrrolate 1 mg by mouth 3 times a day Robitussin 10 mL by mouth every 6 hours when necessary Heparin 5000 units subcutaneous every 8 hours Lispro sliding scale coverage Keppra 1500 mg by mouth twice a day Protonix 40 mg by mouth daily Senokot 5 mg by mouth twice a day Flomax 0.4 mg by mouth daily at bedtime To mycin 300 mg inhaled twice a day Depakote 1500 mg by mouth every 8 hours Tylenol 650 mg when necessary Albuterol when necessary Hydralazine 20 mg IV every 4 hours when necessary Dilaudid 0.5 mg IV every hour when necessary Labetalol 20 mg IV every 4 hours when necessary Ativan 2 mg by mouth every 8 hours when necessary mag sulfate when necessary Zofran when necessary Electrolyte protocol . Current Medications Medications (Trade) Dose Ordered Sig/Harry Route Start Time Stop Time Status Last Admin (NS Flush) 2 ml UNSCH PRN IV FLUSH 09/20/16 22:30 (NS Flush) 2 ml BID IV FLUSH 09/21/16 09:00 09/21/16 22:19 (Zofran Inj) 4 mg Q6H PRN IVP 09/20/16 22:30 (Narcan Inj) 0.4 mg UNSCH PRN IV 09/20/16 22:30 (Tylenol) 650 mg Q6HR PRN PEG 09/21/16 01:30 (Aspirin Chew) 81 mg DAILY PEG 09/21/16 09:00 09/21/16 09:47 (Dulcolax Supp) 10 mg DAILY PRN RECTAL 09/21/16 01:30 (Ativan) 2 mg Q8HR PRN PEG 09/21/16 01:30 (Zofran Inj) 4 mg Q4HR PRN IV PUSH 09/21/16 01:30 (D50w (Vial) Inj) 25 ml UNSCH PRN IV PUSH 09/21/16 01:30 (Glucagon Inj) 1 mg UNSCH PRN OTHER 09/21/16 01:30 (Keppra Liq) 1,500 mg BID PEG 09/21/16 10:00 09/21/16 22:18 (Protonix Inj) 40 mg DAILY IV PUSH 09/21/16 10:01 09/21/16 10:44 (Cogentin) 1 mg BID PEG 09/21/16 21:00 09/21/16 22:18 (Coreg) 6.25 mg BID PEG 09/21/16 21:00 09/21/16 22:18 (Robinul) 1 mg TID PEG 09/21/16 13:00 09/21/16 18:14 (Depakene Liq) 1,500 mg Q8HR PEG 09/21/16 14:00 09/22/16 06:00 (Heparin Inj) 5,000 units Q8HR SQ 09/21/16 14:00 09/22/16 06:00 Metoclopramide HCl 5 mg 5 mg Q8HR IV PUSH 09/21/16 14:00 09/22/16 06:00 (Calcium Chloride Inj/D5W 100 ml Inj) 120 ml @ 120 mls/hr ONCE ONCE IV 09/22/16 09:00 09/22/16 09:59 . Family History Per review of EMR: History of paternal and maternal hypertension. Mother lived to be 95 years old and her grandmother lived to be 105. Little history available from father's side, may have from complications related to urogenital issues. . Substance Use Tobacco: Previous history of tobacco use, quit in 2009. Alcohol: Remote history of EtOH abuse Prescription med abuse: None known Illicits: None known . Psychosocial History Patient is a . He was living with his daughter at some point prior to his recent hospitalizations, and she was his primary caregiver. Patient's daughter, Libby, designated as the healthcare surrogate decision maker. Additional information pending family meeting/discussion. . Spiritual/Cultural Factors Caodaism barney . Living Will: Copy in medical record (living will declaration completed on September.) Health Care Surrogate: Copy in medical record Durable Power of Patient Appointment Coordinator: Copy in medical record Date completed: October 03, 2010 . Health Care Surrogate(s): Patient's daughter, Libby Smith, is designated as the health care surrogate decision maker. . Documented care wishes: Patient's living will was completed on October 13, 2010. In this document the patient declares that if at any time he is unable to make informed medical decisions for himself, and his treating physician and other consulting physicians have determined that he has a terminal condition (a condition caused by injury, disease or illness which is expected to cause ), if he is in a persistent vegetative state (a permanent state of unconsciousness), or if he has an end-stage condition (a condition caused by injury, disease or illness which has resulted and progressively severe and permanent deterioration, the patient directs that life-prolonging procedures be withheld or withdrawn when the use of such procedures would only artificially prolong life and are unlikely to offer a cure or remission of the condition. He directs that he be permitted to naturally with treatments limited to those that will keep him comfortable and relieve pain. . Today's verbally stated goals: Patient is nonverbal on exam, unable to verbalize medical treatment goals. . Family/friends goals: Attempted to contact patient's daughter, Libby Smith. Message left on the patient's daughter's voicemail with palliative care contact information. Awaiting return phone call. . Physical Exam Vital Signs Date Time Temp Pulse Resp B/P Pulse Ox O2 Delivery O2 Flow Rate FiO2 09/22/16 08:22 81 T-piece 70 09/22/16 08:00 98.5 102 24 175/109 91 09/22/16 07:02 98 09/22/16 06:00 96 09/22/16 05:00 96 09/22/16 04:00 98 09/22/16 03:00 105 09/22/16 03:00 97 T-Piece 6.00 40 09/22/16 03:00 97.3 102 20 151/104 97 09/22/16 02:00 98 09/22/16 01:00 98 09/22/16 00:00 96 09/21/16 23:00 96 T-Piece 6.00 40 09/21/16 23:00 103 09/21/16 23:00 98.6 103 20 158/119 96 09/21/16 22:10 85 T-piece 28 09/21/16 22:00 106 09/21/16 21:00 98 09/21/16 20:08 100 T-piece 4.00 28 09/21/16 20:00 94 09/21/16 19:00 105 20 140/109 91 09/21/16 19:00 92 09/21/16 19:00 91 T-Piece 6.00 28 09/21/16 18:00 89 09/21/16 17:00 88 09/21/16 16:03 86 09/21/16 15:29 83 09/21/16 15:00 T-Piece 6.00 28 09/21/16 15:00 98.2 88 18 109/84 100 09/21/16 14:00 96 09/21/16 13:05 92 09/21/16 12:17 99 T-piece 6.00 28 09/21/16 12:00 94 09/21/16 11:00 T-Piece 6.00 28 09/21/16 11:00 98.2 94 18 139/103 97 09/21/16 11:00 96 09/21/16 10:13 64 . 09/21/16 09/22/16 19:00 07:00 Intake Total 525 ml 750 ml Output Total 800 ml 800 ml Balance -275 ml -50 ml Tube Feeding 375 ml 450 ml Tube Irrigant 150 ml Other 300 ml Output Urine Total 800 ml 800 ml . Exam CONSTITUTIONAL/GENERAL: This is an adequately nourished patient, in no apparent distress. TUBES/LINES/DRAINS: PIV 1, PICC line, tracheostomy, PEG tube, Condom catheter SKIN: No jaundice, rashes, or lesions. Skin temperature appropriate. Not diaphoretic. HEAD: Atraumatic. Normocephalic. EYES: Pupils equal and round and reactive. Extraocular motions intact. No scleral icterus. No injection or drainage. Fundi not examined. ENT: Unable to assess hearing secondary to patient's unresponsiveness. Nose without bleeding or purulent drainage. NECK: Trachea midline. Tracheostomy patent Supple, nontender. No palpable thyroid enlargement or nodularity. CARDIOVASCULAR: Regular rate and rhythm without murmurs, gallops, or rubs. No JVD. Peripheral pulses symmetric. RESPIRATORY/CHEST: On mechanical ventilation via tracheostomy. Breath sounds diminished bilaterally. No wheezes, rales, or rhonchi. GASTROINTESTINAL: Abdomen soft, non-tender, nondistended. PEG tube in place.No hepato-splenomegaly, or palpable masses. No guarding. Bowel sounds present. GENITOURINARY: Without palpable bladder distension. Condom catheter in place. MUSCULOSKELETAL: Extremities without clubbing, cyanosis, or edema. Muscle wasting noted. LYMPHATICS: No palpable cervical or supraclavicular adenopathy. NEUROLOGICAL: Does not open eyes to verbal or tactile stimuli. Does not follow commands. PSYCHIATRIC: Unable to assess secondary to patient's clinical condition . Diagnostic Tests Laboratory Laboratory Tests Test 09/21/16 09/21/16 09/21/16 09/22/16 05:46 11:30 13:17 06:41 White Blood Count 6.5 TH/MM3 9.2 TH/MM3 (4.0-11.0) (4.0-11.0) Red Blood Count 3.09 MIL/MM3 3.40 MIL/MM3 (4.50-5.90) (4.50-5.90) Hemoglobin 9.5 GM/DL 10.4 GM/DL (13.0-17.0) (13.0-17.0) Hematocrit 29.2 % 31.3 % (39.0-51.0) (39.0-51.0) Mean Corpuscular Volume 94.5 FL 92.0 FL (80.0-100.0) (80.0-100.0) Mean Corpuscular Hemoglobin 30.9 PG 30.7 PG (27.0-34.0) (27.0-34.0) Mean Corpuscular Hemoglobin 32.7 % 33.3 % Concent (32.0-36.0) (32.0-36.0) Red Cell Distribution Width 22.1 % 22.3 % (11.6-17.2) (11.6-17.2) Platelet Count 141 TH/MM3 132 TH/MM3 (150-450) (150-450) Mean Platelet Volume 7.4 FL 8.4 FL (7.0-11.0) (7.0-11.0) Neutrophils (%) (Auto) 56.6 % 68.5 % (16.0-70.0) (16.0-70.0) Lymphocytes (%) (Auto) 20.0 % 13.1 % (9.0-44.0) (9.0-44.0) Monocytes (%) (Auto) 16.1 % 16.0 % (0.0-8.0) (0.0-8.0) Eosinophils (%) (Auto) 3.7 % (0.0-4.0) 1.5 % (0.0-4.0) Basophils (%) (Auto) 3.6 % (0.0-2.0) 0.9 % (0.0-2.0) Neutrophils # (Auto) 3.7 TH/MM3 6.3 TH/MM3 (1.8-7.7) (1.8-7.7) Lymphocytes # (Auto) 1.3 TH/MM3 1.2 TH/MM3 (1.0-4.8) (1.0-4.8) Monocytes # (Auto) 1.0 TH/MM3 1.5 TH/MM3 (0-0.9) (0-0.9) Eosinophils # (Auto) 0.2 TH/MM3 0.1 TH/MM3 (0-0.4) (0-0.4) Basophils # (Auto) 0.2 TH/MM3 0.1 TH/MM3 (0-0.2) (0-0.2) CBC Comment DIFF FINAL DIFF FINAL Differential Comment Hematology Comments Prothrombin Time 11.7 SEC (9.8-11.6) Prothromb Time International 1.1 RATIO Ratio Sodium Level 135 MEQ/L 133 MEQ/L 133 MEQ/L (136-145) (136-145) (136-145) Potassium Level 5.3 MEQ/L 5.4 MEQ/L 6.0 MEQ/L (3.5-5.1) (3.5-5.1) (3.5-5.1) Chloride Level 96 MEQ/L 94 MEQ/L 93 MEQ/L (98-107) (98-107) (98-107) Carbon Dioxide Level 34.7 MEQ/L 33.4 MEQ/L 33.4 MEQ/L (21.0-32.0) (21.0-32.0) (21.0-32.0) Anion Gap 4 MEQ/L (5-15) 6 MEQ/L (5-15) 7 MEQ/L (5-15) Blood Urea Nitrogen 25 MG/DL (7-18) 23 MG/DL (7-18) 22 MG/DL (7-18) Creatinine 0.76 MG/DL 0.79 MG/DL 0.76 MG/DL (0.60-1.30) (0.60-1.30) (0.60-1.30) Estimat Glomerular Filtration 120 ML/MIN 115 ML/MIN 120 ML/MIN Rate (>89) (>89) (>89) Random Glucose 87 MG/DL 126 MG/DL 134 MG/DL (74-106) (74-106) (74-106) Calcium Level 9.5 MG/DL 9.8 MG/DL 9.4 MG/DL (8.5-10.1) (8.5-10.1) (8.5-10.1) Nasal Screen MRSA (PCR) MRSA NOT DETECTED (NOT DETECT) Phosphorus Level 3.4 MG/DL (2.5-4.9) Magnesium Level 2.2 MG/DL (1.5-2.5) Total Bilirubin 0.3 MG/DL (0.2-1.0) Aspartate Amino Transf 38 U/L (15-37) (AST/SGOT) Alanine Aminotransferase 11 U/L (12-78) (ALT/SGPT) Alkaline Phosphatase 132 U/L (45-117) Total Protein 9.5 GM/DL (6.4-8.2) Albumin 2.2 GM/DL (3.4-5.0) Test 09/22/16 08:39 Blood Gas Puncture Site RT RADIAL Blood Gas Patient Temperature 98.6 Blood Gas HCO3 37 mmol/L (22-26) Blood Gas Base Excess 10.0 mmol/L (-2-2) Blood Gas Oxygen Saturation 90 % (90-100) Arterial Blood pH 7.28 (7.380-7.420) Arterial Blood Partial 80 mmHg (38-42) Pressure CO2 Arterial Blood Partial 77 mmHg Pressure O2 (61-120) Arterial Blood Oxygen Content 12.3 Vol % (12.0-20.0) Arterial Blood 2.4 % (0-4) Carboxyhemoglobin Arterial Blood Methemoglobin 0.8 % (0-2) Blood Gas Hemoglobin 9.6 G/DL (12.0-16.0) Oxygen Delivery Device T-PIECE Blood Gas Inspired Oxygen 70 % . Result Diagram: 09/22/16 0641 09/22/16 0641 Patient/Family Conference Family Conference Location: Telephone Issues Discussed: * Palliative care role, purpose, approach * Palliative care contact information provided . Assessment and Plan Disease Oriented Problem List: (1) Prostate cancer (2) COPD (chronic obstructive pulmonary disease) (3) Dysphagia as late effect of cerebrovascular accident (CVA) (4) Respiratory failure, acute and chronic (5) Sepsis (6) Pneumonia (7) Seizure disorder (8) Tracheostomy in place (9) Anemia (10) Hyperkalemia (11) CAD (coronary artery disease) (12) Dementia (13) Schizophrenia (14) Diabetes mellitus type 2, controlled (15) H/O cardiac arrest (16) Encephalopathy acute (17) S/P percutaneous endoscopic gastrostomy (PEG) tube placement (18) S/P AAA repair Symptom Scale: (1) Pain Comment: Possible causes of pain include immobility, bedbound status, invasiveness lines, tracheostomy, dyspnea, impaired skin integrity etc. PRN acetaminophen is available (2) Debility (3) Dyspnea Comment: Patient has transferred to [facility] after being found lethargic and hypoxic this morning. An ABG deal PCO2 in the 80s. Patient is currently on mechanical ventilation via tracheostomy. Chest x-ray today revealed trach tube in good position, esophageal stent present. Heart is minimally enlarged; pulmonary vascularity is normal; no alveolar consolidation or pneumothorax. . Pertinent Non-Medical Issues Psychosocial:Patient is a . He was living with his daughter at some point prior to his recent hospitalizations, and she was his primary caregiver. Patient's daughter, Libby, designated as the healthcare surrogate decision maker. Additional information pending family meeting/discussion. Spiritual: Caodaism barney Legal: Patient's daughter, Libby Smith, is the designated health care surrogate. Living will and DURABLE POWER OF HY[employer]OELECT[employer]IC PLANT OPERATOR documents have also been completed and can be reviewed in the patient's EMR. Ethical issues impacting care: No known ethical issues impacting care at this time. . Important Contacts Libby Smith, daughter and [facility]: [phone] Robert Smith, family/other: [phone] . Prognosis Patient is a 80-year-old male patient with a history of dementia and paranoid schizophrenia. He has a complex medical history that includes multiple comorbid conditions. Patient has been hospitalized since June 30, 2016. He was transferred to [facility] [place] for several weeks, transferring back to [facility] on 09/20/16. Status post cardiac arrest 2, multiple infections. Given patient's advanced age, complex medical history, and acute deconditioning status post long hospitalization coursehis overall prognosis is poor. Code Status: Full Code Plan * FULL CODE * Decision-making: Patient's daughter, Libby Smith, is the designated health care surrogate. Living will and DURABLE POWER OF HYDROELECTRIC PLANT OPERATOR documents have also been completed and can be reviewed in the patient's EMR. * Goals: Goals remain aggressive, pending family meeting. * Attempted to contact patient's daughter, Libby Smith. Message left on the patient's daughter's voicemail with palliative care contact information. Awaiting return phone call. * Symptom managementdyspnea: Patient has transferred to [facility] after being found lethargic and hypoxic this morning. An ABG deal PCO2 in the 80s. Patient is currently on mechanical ventilation via tracheostomy. Chest x-ray today revealed trach tube in good position, esophageal stent present. Heart is minimally enlarged; pulmonary vascularity is normal; no alveolar consolidation or pneumothorax. * To managementpain: Possible causes of pain include immobility, bedbound status, invasiveness lines, tracheostomy, dyspnea, impaired skin integrity etc. PRN acetaminophen is available. * Discussed with critical care facialist - Dr. Jacome and patient's nurse. * Palliative care will continue to follow this patient throughout his hospitalization to establish trust, assist with symptom management and clarification of medical treatment goals. . Thank you for the opportunity to participate in the care of Mr. Cesar. . Attestation To help prompt me to consider important information that might be impacting today's encounter and assessment, information from prior notes written by myself or my colleagues may have been "brought forward" into today's note. My signature on this note, however, is an attestation that I personally performed the exam, history, and/or decision-making noted today, and, unless otherwise indicated, the interactions with patient, family, and staff as well as the review of records all occurred today. I also attest that the listed assessment and stated plan reflect my best clinical judgment today based on the combination of historical information, prior notes, and today's exam/ interactions. When time spent is documented, it refers only to time spent today by the signer, or if indicated, combined time spent today by collaborating physician/nurse practitioner. . Yasmin Moran Sep 22, 2016 10:35
[2016-09-22] MEDS ORDERED: SODIUM CHLOR 0.9% 1000 ML INJ 1,000 ML IV ONE (10:45)
--- NOTE | 2016-09-22 12:00 | HHI.PR ---
Addendum to Inpatient Note Addendum Reason: Additional Documentation Additional Information I spoke to the patient's daughter. She states that over at [facility] she was not communicated very well of his father status. States that she never said that her dad had a limited oh status. The patient tolerated her father is full code. This was communicated to Dr. Jacome. I discussed the patient's current health status in detail with the patient's daughter. She seemed to understand very well as she has medical background. Agrees with this care consultation as well as neurology consultation. The patient's daughter states that she wants to see her father off psychotropic medications that could cause lethargy to make an informed decision on end-of-life decisions. Ezequiel Pelletier MD Sep 22, 2016 12:00
--- NOTE | 2016-09-22 12:15 | PD.CONS ---
[facility] Service Critical Care Medicine Consult Requested By Critical care consult requested by Dr. Mccabe Reason for Consult Acute respiratory failure with CO2 retention requiring mechanical ventilation on 09/22/16 Primary Care Physician No Primary Care Physician History of Present Illness Patient was transferred from [facility] to [facility] in [place] on July 01, 2016. He was admitted to our hospital on June 30, 2016. Patient is a trach dependent and PEG dependent patient since about 2010 when we first saw him at our hospital. In June of this year, he presented to our emergency room and was admitted to the installations inspector service. He was having blood clots through his PEG tube as well with respiratory failure requiring ventilator support. He has had history of tracheomalacia with tracheal stent placed in [facility] about 2 years prior. Subsequent workup here in June revealed his tracheal stent 80%occlusion with debris versus mass. Therapeutic bronchoscopy was done here which shows near complete occlusion of tracheal stent with organized clots and mucous. He was managed overnight by installations inspector team and was transferred to [facility] because of this tracheal stent occlusion with hemoptysis. Patient was managed at [facility] for this tracheal stent occlusion and underwent multiple bronchoscopies and tracheostomy revision and tracheal stent revision with new stent placement. He also had cardiac arrest while in hospital on August 13, 2016 and August 14, 2016. He required ventilator support during the hospitalization and currently on FiO2 of 28% through [facility]. He was managed there for pseudomonas pneumonia with colonization and MRSA from bronchial lavage. 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 He was also managed for massive distention of the colon suspicious for volvulus versus ileus. He was finally stabilized and managed on PCU service at present and transferred back to [facility] on 09/20/16 when he was admitted by the hospitalist service to the floor on [facility]. This morning patient was noted to be lethargic and an ABG revealed PCO2 in the 80s. He was transferred to [facility] with critical care consult being requested by Dr. Chen. He was placed on mechanical ventilation. I evaluated the patient shortly following his arrival. History was obtained by reviewing records and discussion with Dr. Chen. 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 Negative MRI studies. Massive colonic distention in the right hemiabdomenileus versus sigmoid volvulus on KUB at [facility]. Not a surgical candidate per surgery at that time. Hypertension Diabetesdiet controlled CAD Echocardiogrammild LV diastolic dysfunction. Mild to moderate mitral regurgitation. Moderate tricuspid regurgitation. Otherwise normal contractilityFebruary 2016 Prostate cancer Dementia Seizure disorder AAArepaired Paranoid schizophreniaper records in 2010 when he presented [place] [facility] the [place] [facility] Anemia Anxiety GERD Past Surgical History [id number] PEG tube [id number] Tracheal stentaround 2014September 14, 2016tracheostomy tube removal and replacement, tracheostomy stent revision and stent placement, with flexible and rigid bronchoscopy July 19, 2016tracheostomy procedure BronchoscopiesFebruary 2016, July 26, 2016 Reported Medications Med list from the transfer notes reviewed Aspirin 81 mg daily Benztropine 1 mg twice a day Coreg 6.25 mg twice a day Colace 100 mg by mouth twice a day Glycopyrrolate 1 mg by mouth 3 times a day Robitussin 10 mL by mouth every 6 hours when necessary Heparin 5000 units subcutaneous every 8 hours Lispro sliding scale coverage Keppra 1500 mg by mouth twice a day Protonix 40 mg by mouth daily Senokot 5 mg by mouth twice a day Flomax 0.4 mg by mouth daily at bedtime To mycin 300 mg inhaled twice a day Depakote 1500 mg by mouth every 8 hours Tylenol 650 mg when necessary Albuterol when necessary Hydralazine 20 mg IV every 4 hours when necessary Dilaudid 0.5 mg IV every hour when necessary Labetalol 20 mg IV every 4 hours when necessary Ativan 2 mg by mouth every 8 hours when necessary mag sulfate when necessary Zofran when necessary Electrolyte protocol Allergies: Coded Allergies: Penicillin (Verified Allergy, Unknown, 06/30/16) *MDRO Multi-Drug Resistant Organism (Verified Adverse Reaction, Unknown, MRSA, 07/03/16) MRSA PCR screen POSITIVE - 07/01/16 Codeine (Verified Adverse Reaction, Unknown, Anaphylaxis, 06/30/16) Active Medications Benztropine Mesylate (Cogentin) 1 mg BID PEG Last administered on 09/21/16 22: 18; Admin Dose 1 MG; Start 09/21/16 at 21:00 Calcium Chloride/ Dextrose (Calcium Chloride Inj/D5W 100 ml Inj) 120 ml @ 120 mls/hr ONCE ONCE IV; Start 09/22/16 at 09:00; Stop 09/22/16 at 09:59; Status DC Carvedilol (Coreg) 6.25 mg BID PEG Last administered on 09/22/16 09:54; Admin Dose 6.25 MG; Start 09/21/16 at 21:00 Clonidine (Catapres) 0.1 mg ONCE ONCE PEG Last administered on 09/22/16 02:00 ; Admin Dose 0.1 MG; Start 09/22/16 at 02:00; Stop 09/22/16 at 02:01; Status DC Dextrose (D50w (Vial) Inj) 25 ml ONCE ONCE IV PUSH Last administered on 09:50; Admin Dose 25 ML; Start 09/22/16 at 09:00; Stop 09/22/16 at 09:01; Status DC Furosemide 40 mg 40 mg ONCE ONCE IV PUSH Last administered on 09/22/16 09:51; Admin Dose 40 MG; Start 09/22/16 at 08:45; Stop 09/22/16 at 08:58; Status DC Glycopyrrolate (Robinul) 1 mg TID PEG Last administered on 09/22/16 09:53; Admin Dose 1 MG; Start 09/21/16 at 13:00 Heparin Sodium (Porcine) (Heparin Inj) 5,000 units Q8HR SQ Last administered on 09/22/16 06:00; Admin Dose 5,000 UNITS; Start 09/21/16 at 14:00 Insulin Human Regular 10 units 10 units ONCE ONCE IV PUSH Last administered on 09/22/16 09:52; Admin Dose 10 UNITS; Start 09/22/16 at 09:00; Stop 09/22/16 at 09:01; Status DC Labetalol HCl (Trandate Inj) 10 mg NOW ONCE IV Last administered on 09/22/16 08:17; Admin Dose 10 MG; Start 09/22/16 at 09:00; Stop 09/22/16 at 09:01; Status DC Methylprednisolone Sodium Succinate (SoluMEDROL INJ) 125 mg ONCE ONCE IV PUSH Last administered on 09/22/16 09:50; Admin Dose 125 MG; Start 09/22/16 at 09:00 ; Stop 09/22/16 at 09:01; Status DC Metoclopramide HCl (Reglan Inj) 5 mg Q8HR IV PUSH Last administered on 06:00; Admin Dose 5 MG; Start 09/21/16 at 14:00 Sodium Chloride (NS 1000 ml Inj) 1,000 ml @ 999 mls/hr BOLUS ONCE IV; Start at 10:45; Stop 09/22/16 at 11:45 Valproic Acid (Depakene Liq) 1,500 mg Q8HR PEG Last administered on 09/22/16 06 :00; Admin Dose 1,500 MG; Start 09/21/16 at 14:00 Family History Unknown Social History Previous history of smoking. Quit in 2009. Remote history of alcohol abuse. No IV drug abuse. Was previously living with his daughter and son-in-law. Physical Exam Vital Signs Vital Signs Date Time Temp Pulse Resp B/P Pulse Ox O2 Delivery O2 Flow Rate FiO2 09/22/16 09:40 99 40 09/22/16 08:22 81 T-piece 70 09/22/16 08:00 98.5 102 24 175/109 91 09/22/16 07:02 98 09/22/16 06:00 96 09/22/16 05:00 96 09/22/16 04:00 98 09/22/16 03:00 105 09/22/16 03:00 97 T-Piece 6.00 40 09/22/16 03:00 97.3 102 20 151/104 97 09/22/16 02:00 98 09/22/16 01:00 98 09/22/16 00:00 96 09/21/16 23:00 96 T-Piece 6.00 40 09/21/16 23:00 103 09/21/16 23:00 98.6 103 20 158/119 96 09/21/16 22:10 85 T-piece 28 09/21/16 22:00 106 09/21/16 21:00 98 09/21/16 20:08 100 T-piece 4.00 28 09/21/16 20:00 94 09/21/16 19:00 105 20 140/109 91 09/21/16 19:00 92 09/21/16 19:00 91 T-Piece 6.00 28 09/21/16 18:00 89 09/21/16 17:00 88 09/21/16 16:03 86 09/21/16 15:29 83 09/21/16 15:00 T-Piece 6.00 28 09/21/16 15:00 98.2 88 18 109/84 100 09/21/16 14:00 96 09/21/16 13:05 92 09/21/16 12:17 99 T-piece 6.00 28 09/21/16 12:00 94 09/21/16 11:00 T-Piece 6.00 28 09/21/16 11:00 98.2 94 18 139/103 97 09/21/16 11:00 96 Physical Exam Physical Exam GENERAL: This is a gentleman, noncommunicative, trach dependent, packed dependent SKIN: Sacral decubiti with wound packing and discharge HEAD: Atraumatic. Normocephalic. EYES: Left-sided ptosis No scleral icterus. No injection or drainage. ENT: Nose without bleeding, purulent drainage or septal hematoma Airway patent. Tracheostomy in place NECK: Trachea midline. No JVD CARDIOVASCULAR: Regular rate and rhythm without murmurs, gallops, or rubs. RESPIRATORY: On mechanical ventilation via tracheostomy, Bilaterally decreased air entry GASTROINTESTINAL: Abdomen soft, non-tender, nondistended.No guarding. No superpubic tenderness. MUSCULOSKELETAL: Bilateral lower extremity contracture. Atrophic. No calf asymmetry. NEUROLOGICAL: Spontaneously opens his eyes. However not really tracking. Does not follow any commands. Bilateral upper and lower extremity contractures with muscle atrophy. [facility] Laboratory Tests Test 09/21/16 09/21/16 09/22/16 09/22/16 11:30 13:17 06:41 08:39 Nasal Screen MRSA (PCR) MRSA NOT DETECTED Sodium Level 133 133 Potassium Level 5.4 6.0 Chloride Level 94 93 Carbon Dioxide Level 33.4 33.4 Anion Gap 6 7 Blood Urea Nitrogen 23 22 Creatinine 0.79 0.76 Estimat Glomerular Filtration 115 120 Rate Random Glucose 126 134 Calcium Level 9.8 9.4 White Blood Count 9.2 Red Blood Count 3.40 Hemoglobin 10.4 Hematocrit 31.3 Mean Corpuscular Volume 92.0 Mean Corpuscular Hemoglobin 30.7 Mean Corpuscular Hemoglobin 33.3 Concent Red Cell Distribution Width 22.3 Platelet Count 132 Mean Platelet Volume 8.4 Neutrophils (%) (Auto) 68.5 Lymphocytes (%) (Auto) 13.1 Monocytes (%) (Auto) 16.0 Eosinophils (%) (Auto) 1.5 Basophils (%) (Auto) 0.9 Neutrophils # (Auto) 6.3 Lymphocytes # (Auto) 1.2 Monocytes # (Auto) 1.5 Eosinophils # (Auto) 0.1 Basophils # (Auto) 0.1 CBC Comment DIFF FINAL Differential Comment Hematology Comments Phosphorus Level 3.4 Magnesium Level 2.2 Total Bilirubin 0.3 Aspartate Amino Transf 38 (AST/SGOT) Alanine Aminotransferase 11 (ALT/SGPT) Alkaline Phosphatase 132 Total Protein 9.5 Albumin 2.2 Blood Gas Puncture Site RT RADIAL Blood Gas Patient Temperature 98.6 Blood Gas HCO3 37 Blood Gas Base Excess 10.0 Blood Gas Oxygen Saturation 90 Arterial Blood pH 7.28 Arterial Blood Partial 80 Pressure CO2 Arterial Blood Partial 77 Pressure O2 Arterial Blood Oxygen Content 12.3 Arterial Blood 2.4 Carboxyhemoglobin Arterial Blood Methemoglobin 0.8 Blood Gas Hemoglobin 9.6 Oxygen Delivery Device T-PIECE Blood Gas Inspired Oxygen 70 Result Diagram: 09/22/16 0641 09/22/1641 Imaging 09/22 CXR (portable) - personally reviewed: Tracheostomy in place, tracheal stent noted, good aeration bilateral lung casanova with prominent interstitial markings Assessment and Plan Assessment and Plan Impression: Acute respiratory failure requiring mechanical ventilation Acute respiratory acidosis Hypotension : responded to fluid bolus, hold antihypertensives. A/P Problem List: (1) [id number] respiratory failure ICD Code: J96.20 Status: Acute Plan: Patient with acute episode of hypoxemia into the 80's, suspect aspiration. Recieved Solumedrol 125 mg IV stat and 40 mg Iv Lasix prior to transfer to ICU. ABG shows respiratory acidosis with pH of 7.28, PCO2 80, PO2 of 77 and oxygen saturations of 90. Place patient on mechanical ventilation. Vent bundle, bronchodilators as needed. Pulmonary following. We will repeat ABG to follow up on respiratory acidosis. (2) Hyperkalemia ICD Code: E87.5 Status: Acute Plan: Potassium elevated at 6.0 Given D50 and Regular insulin IV. 2 grams of IV calcium chloride and 40 mg of IV lasix. Follow-up BMP (3) Seizure disorder ICD Code: G40.909 Status: Chronic Plan: EEG done at [facility] showing epileptic discharges persistently. Negative MRI studies. Continue current anticonvulsants. Patient currently on Keppra 1500 mg via PEG twice a day. 09/22 daughter refusing Depakote and Keppra. Awaiting neurology consult and EEG. (4) Tracheostomy in place ICD Code: Z93.0 Status: Chronic Plan: Continue with trach care, suctioning as needed, aspiration precautions. Patient with high residuals. Resume tube feeds at 30 cc per hour with Jevity. Check residuals. Continue Reglan. (5) S/P percutaneous endoscopic gastrostomy (PEG) tube placement ICD Code: Z93.1 Status: Chronic Plan: Patient with high residuals on 09/21 - started on Reglan IV scheduled. Diet consulted. (6) H/O cardiac arrest ICD Code: Z86.74 Status: Chronic Plan: Patient has history of cardiac arrest on August 13 on 08/14/16. Continue to monitor on telemetry. Palliative care consulted to help address goals of care and establish a clear CODE STATUS. At [facility] the patient had a limited DO NOT RESUSCITATE. 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 (8) Dementia ICD Code: F03.90 Status: Chronic Plan: Patient currently on Cogentin, Ativan as needed for anxiety. (9) Schizophrenia ICD Code: F20.9 Status: Chronic Plan: Not on any medications at this point. (10) Diabetes mellitus type 2, controlled ICD Code: E11.9 Status: Chronic Plan: Diet controlled. Blood sugar seems to be stable. Not on sliding scale. (11) CAD (coronary artery disease) ICD Code: I25.10 Status: Chronic Plan: Continue aspirin 81 mg. (12) Encephalopathy acute ICD Code: G93.40 Status: Acute Plan: Unclear what baseline is since patient had 2 cardiac arrests over at [facility]. Patient is more lethargic due to Co2 retention and anoxic encephalopathy. ABG Shows a pH of 7.28, PCO2 of 80, PO2 77. Placed on mechanical ventilation Prophylaxis GI prophylaxis: Continue PPI. DVT plexus: SCDs, heparin subcutaneously. Code Status full code per d/w by Dr. Chen and patient's daughter. Discussed Condition With Rowdy Kennedy MD Sep 22, 2016 12:01
[2016-09-22 12:42] LABS: BLOOD GAS BASE EXCESS 8.3 mmol/L (-2-2); BLOOD GAS CARBOXYHEMOGLOBIN 2.4 % (0-4); BLOOD GAS HCO3 32 mmol/L (22-26); BLOOD GAS METHEMOGLOBIN 0.9 % (0-2); BLOOD GAS O2 HGB SATURATION 96 % (90-100); BLOOD GAS OXYGEN CONTENT 14.4 Vol % (12.0-20.0); BLOOD GAS PCO2 44 mmHg (38-42); BLOOD GAS PO2 140 mmHg (61-120); BLOOD GAS TOTAL HGB 10.4 G/DL (12.0-16.0); CRITICAL VALUE NO; DRAW SITE LT RADIAL; FIO2 40 %; NUMBER OF ARTERIAL PUNCTURES 1; OXYGEN DEVICE VENTILATOR; STAT NO; TEMP CORR TO 98.6; ULNAR PULSE PRESENT; VENT SETTINGS A/C 18/550/5 PEP
[2016-09-22 13:26] LABS: BICARBONATE 32.9 MEQ/L (21.0-32.0)
--- NOTE | 2016-09-22 14:13 | MG ---
cc: ASHLEY JOSEPH M.D. Lab No: [id number] Date: 09/22/2016 Age: Sex: M TECHNIQUE 17 channel EEG. DESCRIPTION The background rhythm reveals generalized slowing in predominantly the delta frequency at 3 Hz. Periodic epileptiform discharges are present bilaterally occurring about every 2-10 seconds in a synchronized symmetrical fashion. There are no asymmetries present. Photic does not cause a change in background rhythm. INTERPRETATION Abnormal study. The study is consistent with bilateral PLEDs as well as diffuse slowing which is indicative of a severe encephalopathic state. MD GRANT Driscoll/MAGGIE /1:53 PM /2:04 PM
--- NOTE | 2016-09-22 15:18 | RADRPT ---
EXAM DATE/TIME: 09/22/2016 13:23 [place] COMPARISON: CHEST SINGLE AP, September 22, 2016, 8:28. INDICATIONS : Post PICC line placement MEDICAL HISTORY : Chronic obstructive pulmonary disease. Gastro esophageal reflux disease. Diabetes mellitus type II. prostate ca SURGICAL HISTORY : Umbilical hernia repair. ENCOUNTER: Subsequent ACUITY: 1 day PAIN SCORE: Non-responsive. LOCATION: Right chest FINDINGS: A single AP supine view of the chest was obtained and again demonstrates tracheostomy tube in place. Interval placement of right-sided PICC line with the tip projected over the superior vena cava. There is no pneumothorax. No confluent infiltrates. The right costophrenic angle may be minimally blunted. The heart size is within normal limits. Esophageal stent catheter is again noted. CONCLUSION: Interval placement of right-sided PICC line. Hector Zee MD on September 22, 2016 at 15:09 Board Certified Radiologist. This report was verified electronically.
[2016-09-22] MEDS: TAMSULOSIN HCL 0.4 MG CAP PO SCH (17:06)
[2016-09-22] MEDS: SODIUM CHLOR 0.9% 1000 ML INJ 1,000 ML IV SCH (17:35)
--- NOTE | 2016-09-22 19:27 | MB ---
cc: ASHLEY JOSEPH DATE OF CONSULTATION 09/22/16 REASON FOR CONSULTATION Encephalopathy. HISTORY OF PRESENT ILLNESS Mr. Gonzalez is a 80-year-old man He was transferred here from [facility] in June of this year. He is trache dependent and PEG dependent since 2010. He apparently was having respiratory failure, was having clots in his PEG tube. He had a history of cardiac arrest while a [facility] in July of this year. He also had a AAA repair. He had an EEG performed which revealed PEDS, sharp activity periodically. PAST MEDICAL HISTORY 1. History of tracheal stent placement due to tracheomalacia. 2. Tracheal stent occlusion with clot in June 3. Respiratory arrest. 4. He had an EEG done at [facility] showing persistent epileptiform discharges. He had MRI of the brain which is normal apparently according to the record. 5. History of hypertension, 6. Diabetes, 7. Coronary artery disease, 8. Prostate cancer 9. Dementia 10. Seizure disorder, 11. Schizophrenia, 12. Anemia, 13. Anxiety. 14. Tracheostomy. 15. PEG placement 16. Tracheal stent MEDICATIONS current are - 1. Heparin flush 2. Duoneb 3. Cogentin 4 Coreg 5. Flomax 6. Depakene 1500 mg per PEG q.8 h. 7. Reglan 5 mg IV q. 8 hr 8. Robinul 1 mg t.i.d. 9. Protonix 40 mg daily. 10. Keppra 1500 mg b.i.d. 11. Tobramycin 23. Aspirin. NEUROLOGIC EXAMINATION VITAL SIGNS: Blood pressure is 96/55, pulse 55, respiratory rate 18, temperature 90.4 degrees. Higher cortical function - he is nonresponsive, does not follow commands. Cranial nerves: Pupils are equal and reactive. The extraocular movements are intact to doll's eye maneuver. Motor exam - he has minimal spontaneous limb movement. No withdrawal. Reflexes are symmetric. I looked at his EEG - it shows diffuse slowing in the delta frequency with periodic epileptiform discharges most likely bilateral PLEDS. LABORATORY DATA White count 6,500, hemoglobin 9.5, hematocrit 29%, platelet count 141,000. Sodium is 135, potassium 5.3, chloride 96, CO2 34, BUN is 25, creatinine 0.76, GFR is 120, glucose 87 IMPRESSION The EEG is consistent mainly with an encephalopathy with PLEDS. I do not feel he is having epileptogenic seizures. There is no seizure activity on his exam. This could result from a severe encephalopathy, If he had anoxic encephalopathy, this would be seen in that situation as well. RECOMMENDATIONS At the present time, according to the record he did have an MRI of the brain at [facility] and I do not think we need to repeat this. We will continue the Keppra and the valproic acid. We will check a valproic acid level. MD GRANT Driscoll/ /5:40 PM /7:12 PM
--- NOTE | 2016-09-22 20:48 | HHI.PR ---
Subjective Remarks YOAA male multiple co morbid condition VDRF,Trach, tracheal stent Came back from [facility] On ACV Small amount of trach secretions Objective Vital Signs Vital Signs Date Time Temp Pulse Resp B/P Pulse Ox O2 Delivery O2 Flow Rate FiO2 09/22/16 18:00 78 09/22/16 16:00 81 09/22/16 16:00 98 Mechanical Ventilator 40 09/22/16 16:00 99.0 81 18 147/70 100 09/22/16 15:45 100 35 09/22/16 14:00 73 09/22/16 12:00 65 09/22/16 12:00 95 Mechanical Ventilator 40 09/22/16 12:00 100 40 09/22/16 12:00 98.4 65 18 96/55 100 09/22/16 10:00 77 09/22/16 09:40 99 40 09/22/16 08:22 81 T-piece 70 09/22/16 08:00 98.5 102 24 175/109 91 09/22/16 08:00 98 Mechanical Ventilator 40 09/22/16 07:02 98 09/22/16 06:00 96 09/22/16 05:00 96 09/22/16 04:00 98 09/22/16 03:00 105 09/22/16 03:00 97 T-Piece 6.00 40 09/22/16 03:00 97.3 102 20 151/104 97 09/22/16 02:00 98 09/22/16 01:00 98 09/22/16 00:00 96 09/21/16 23:00 96 T-Piece 6.00 40 09/21/16 23:00 103 09/21/16 23:00 98.6 103 20 158/119 96 09/21/16 22:10 85 T-piece 28 09/21/16 22:00 106 09/21/16 21:00 98 I/O 09/21/16 09/21/16 09/21/16 09/22/16 09/22/16 09/22/16 07:00 15:00 23:00 07:00 15:00 23:00 Intake Total 0 ml 525 ml 750 ml 1560 ml Output Total 550 ml 800 ml 800 ml 250 ml Balance -550 ml -275 ml -50 ml 1310 ml Intake Oral 0 ml IV Total 1340 ml Tube Feeding 375 ml 450 ml 160 ml Tube Irrigant 150 ml Other 300 ml 60 ml Output Urine Total 550 ml 800 ml 800 ml 250 ml Result Diagram: 09/22/16 0641 09/22/16 1240 Objective Remarks GENERAL: Elderly male, on Vent SKIN: Warm and dry. HEAD: Normocephalic. EYES: No scleral icterus. No injection or drainage. NECK: Supple, trachea midline. No JVD or lymphadenopathy. Has trach CARDIOVASCULAR: Regular rate and rhythm without murmurs, gallops, or rubs. RESPIRATORY: Breath sounds equal bilaterally. No accessory muscle use. GASTROINTESTINAL: Abdomen soft, non-tender, nondistended. PEG tube in place MUSCULOSKELETAL: No cyanosis, or edema. BACK: Nontender without obvious deformity. No CVA tenderness. A/P Assessment and Plan VDRF Trach Tracheal stent Sz disorder S/P AAA repair S/P cardiac arrest PLAN: Cont Vent support Trach care Aerosol nebs TF Stable off sedation Daron Rock MD Sep 22, 2016 20:48
[2016-09-22] MEDS: RESP: ALBUTEROL 2.5 MG/IPRATROPIUM 0.5 MG NEB (SCH) NEB (23:13)
[2016-09-23] VITALS (19 sets, daily range): BP systolic 125–173; BP diastolic 72–98; PULSE 68–81; RESP 10–19; TEMP 98.1–98.5; O2SAT 95–100
[2016-09-23] MEDS: RESP: ALBUTEROL 2.5 MG/IPRATROPIUM 0.5 MG NEB (SCH) NEB ×6 (03:33→23:37)
[2016-09-23] MEDS: HEPARIN SODIUM - SQ 10,000 UNITS/ML VIAL SQ SCH ×3 (05:23→22:07)
[2016-09-23] MEDS: METOCLOPRAMIDE HCL 10 MG/2 ML VIAL IV PUSH SCH ×3 (05:23→22:07)
[2016-09-23] MEDS: VALPROIC ACID SYRUP 250 MG/5 ML UDC PEG SCH ×3 (05:24→22:00)
[2016-09-23] MEDS: SODIUM CHLOR 0.9% 1000 ML INJ 1,000 ML IV SCH ×2 (05:24→20:10)
[2016-09-23 06:58] LABS: ALKALINE PHOSPHATASE 108 U/L (45-117); ALT (GPT) 10 U/L (12-78); ANION GAP 6 MEQ/L (5-15); AST (GOT) 30 U/L (15-37); BICARBONATE 32.4 MEQ/L (21.0-32.0); BLOOD UREA NITROGEN 34 MG/DL (7-18); CHLORIDE 95 MEQ/L (98-107); GLOMERULAR FILTRATION RATE 85 ML/MIN (>89); POTASSIUM 4.4 MEQ/L (3.5-5.1); SODIUM (NA) 133 MEQ/L (136-145); TOTAL BILIRUBIN ADULT 0.4 MG/DL (0.2-1.0)
[2016-09-23] MEDS: RESP: TOBRAMYCIN SULFATE 300 MG/5 ML NEB NEB SCH ×2 (07:29→20:58)
[2016-09-23 08:08] LABS: AUTOMATED NEUTROPHIL # 5.9 TH/MM3 (1.8-7.7); BASOPHIL % 0.2 % (0.0-2.0); HEMATOCRIT 25.1 % (39.0-51.0); HEMO FLAGS AUTO DIFF; LYMPHOCYTE # 1.3 TH/MM3 (1.0-4.8); MEAN CORPUSCULAR HEMOGLOBIN 30.9 PG (27.0-34.0); MEAN CORPUSCULAR HGB CONC 33.3 % (32.0-36.0); MONO % 18.3 % (0.0-8.0); NEUT % 66.5 % (16.0-70.0); PLATELET COUNT 158 TH/MM3 (150-450); RED CELL DISTRIBUTION WIDTH 22.4 % (11.6-17.2); WHITE BLOOD COUNT 8.9 TH/MM3 (4.0-11.0)
[2016-09-23] MEDS: SODIUM CHLORIDE 0.9% FLUSH 10 ML FLUSH IV FLUSH SCH ×3 (08:29→22:06)
[2016-09-23] MEDS: GLYCOPYRROLATE 1 MG TAB PEG SCH ×3 (08:29→18:35)
[2016-09-23] MEDS: BENZTROPINE MESYLATE 1 MG TAB PEG SCH ×2 (08:29→22:06)
[2016-09-23] MEDS: ASPIRIN 81 MG CHEW TAB PEG SCH (08:29)
[2016-09-23] MEDS: CARVEDILOL 6.25 MG TAB PEG SCH ×2 (08:29→22:07)
[2016-09-23] MEDS: PANTOPRAZOLE SODIUM 40 MG VIAL IV PUSH SCH (08:29)
[2016-09-23] MEDS: levETIRAcetam 500 MG/5 ML UDC PEG SCH ×2 (08:30→21:00)
[2016-09-23 11:28] LABS: SCAN/DIFF AUTO DIFF CONFIRMED
--- NOTE | 2016-09-23 14:05 | HHI.CCPN ---
Subjective Remarks/Hospital Course 09/22: Patient was transferred from [facility] to [facility] in [place] on July 01, 2016. He was admitted to our hospital on June 30, 2016. Patient is a trach dependent and PEG dependent patient since about 2010 when we first saw him at our hospital. In June of this year, he presented to our emergency room and was admitted to the decorator lighting fixtures service. He was having blood clots through his PEG tube as well with respiratory failure requiring ventilator support. He has had history of tracheomalacia with tracheal stent placed in [facility] about 2 years prior. Subsequent workup here in June revealed his tracheal stent 80%occlusion with debris versus mass. Therapeutic bronchoscopy was done here which shows near complete occlusion of tracheal stent with organized clots and mucous. He was managed overnight by decorator lighting fixtures team and was transferred to [facility] because of this tracheal stent occlusion with hemoptysis. Patient was managed at [facility] for this tracheal stent occlusion and underwent multiple bronchoscopies and tracheostomy revision and tracheal stent revision with new stent placement. He also had cardiac arrest while in hospital on August 13, 2016 and August 14, 2016. He required ventilator support during the hospitalization and currently on FiO2 of 28% through trach. He was managed there for pseudomonas pneumonia with colonization and MRSA from bronchial lavage. 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 He was also managed for massive distention of the colon suspicious for volvulus versus ileus. He was finally stabilized and managed on PCU service at present and transferred back to [facility] on 09/20/16 when he was admitted by the hospitalist service to the floor on [facility]. This morning patient was noted to be lethargic and an ABG revealed PCO2 in the 80s. He was transferred to [facility] with critical care consult being requested by Dr. Chen. He was placed on mechanical ventilation. I evaluated the patient shortly following his arrival. History was obtained by reviewing records and discussion with Dr. Chen. 09/23: Remains encephalopathic on mechanical ventilation via tracheostomy. Tube feeds Resumed yesterday and tolerating well currently. Objective Vital Signs Date Time Temp Pulse Resp B/P Pulse Ox O2 Delivery O2 Flow Rate FiO2 09/23/16 13:37 35 09/23/16 12:00 100 Mechanical Ventilator 09/23/16 12:00 98.3 69 10 149/84 09/22/16 03:00 6.00 Intake and Output 09/22/16 09/22/16 09/23/16 08:00 16:00 00:00 Intake Total 750 ml 1560 ml 652 ml Output Total 800 ml 250 ml 450 ml Balance -50 ml 1310 ml 202 ml Result Diagram: 09/23/16 0604 09/23/16 0604 Imaging 09/22 CXR (portable) - personally reviewed: Tracheostomy in place, tracheal stent noted, good aeration bilateral lung casanova with prominent interstitial markings Objective Remarks Physical Exam GENERAL: This is a gentleman, noncommunicative, trach dependent, PEG dependent SKIN: Sacral decubiti with wound packing and discharge HEAD: Atraumatic. Normocephalic. EYES: Left-sided ptosis No scleral icterus. No injection or drainage. ENT: Nose without bleeding, purulent drainage or septal hematoma Airway patent. Tracheostomy in place NECK: Trachea midline. No JVD CARDIOVASCULAR: Regular rate and rhythm without murmurs, gallops, or rubs. RESPIRATORY: On mechanical ventilation via tracheostomy, Bilaterally decreased air entry GASTROINTESTINAL: Abdomen soft, non-tender, nondistended.No guarding. No superpubic tenderness. MUSCULOSKELETAL: Bilateral lower extremity contracture. Atrophic. No calf asymmetry. NEUROLOGICAL: Spontaneously opens his eyes. However not really tracking. Does not follow any commands. Bilateral upper and lower extremity contractures with muscle atrophy. A/P Assessment and Plan Impression: Acute respiratory failure requiring mechanical ventilation Acute respiratory acidosis Hypotension : responded to fluid bolus, hold antihypertensives. A/P Problem List: (1) Okntl-dv-[id number] respiratory failure ICD Code: J96.20 Status: Acute Plan: Patient with acute episode of hypoxemia into the 80's, suspect aspiration. Recieved Solumedrol 125 mg IV stat and 40 mg Iv Lasix prior to transfer to ICU. ABG shows respiratory acidosis with pH of 7.28, PCO2 80, PO2 of 77 and oxygen saturations of 90. Place patient on mechanical ventilation. Vent bundle, bronchodilators as needed. Pulmonary following. We will repeat ABG to follow up on respiratory acidosis. (2) Hyperkalemia ICD Code: E87.5 Status: Acute Plan: Potassium elevated at 6.0 Given D50 and Regular insulin IV. 2 grams of IV calcium chloride and 40 mg of IV lasix on 09/22 Follow-up BMP (3) Seizure disorder ICD Code: G40.909 Status: Chronic Plan: EEG done at [facility] showing epileptic discharges persistently. Negative MRI studies. Continue current anticonvulsants. Patient currently on Keppra 1500 mg via PEG twice a day. 09/22 daughter refusing Depakote and Keppra. Reviewed neurology consult and EEG. (4) Tracheostomy in place ICD Code: Z93.0 Status: Chronic Plan: Continue with trach care, suctioning as needed, aspiration precautions. Patient with high residuals. Resume tube feeds at 30 cc per hour with Jevity. Check residuals. Continue Reglan. (5) S/P percutaneous endoscopic gastrostomy (PEG) tube placement ICD Code: Z93.1 Status: Chronic Plan: Patient with high residuals on 09/21 - started on Reglan IV scheduled. Diet consulted. (6) H/O cardiac arrest ICD Code: Z86.74 Status: Chronic Plan: Patient has history of cardiac arrest on August 13 on 08/14/16. Continue to monitor on telemetry. Palliative care consulted to help address goals of care and establish a clear CODE STATUS. At [facility] the patient had a limited DO NOT RESUSCITATE. 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 (8) Dementia ICD Code: F03.90 Status: Chronic Plan: Patient currently on Cogentin, Ativan as needed for anxiety. (9) Schizophrenia ICD Code: F20.9 Status: Chronic Plan: Not on any medications at this point. (10) Diabetes mellitus type 2, controlled ICD Code: E11.9 Status: Chronic Plan: Diet controlled. Blood sugar seems to be stable. Not on sliding scale. (11) CAD (coronary artery disease) ICD Code: I25.10 Status: Chronic Plan: Continue aspirin 81 mg. (12) Encephalopathy acute ICD Code: G93.40 Status: Acute Plan: Unclear what baseline is since patient had 2 cardiac arrests over at [facility]. Patient is more lethargic due to Co2 retention and anoxic encephalopathy. ABG Shows a pH of 7.28, PCO2 of 80, PO2 77. Placed on mechanical ventilation Prophylaxis GI prophylaxis: Continue PPI. DVT plexus: SCDs, heparin subcutaneously. Rowdy Jacome MD Sep 23, 2016 14:05
[2016-09-23] MEDS: TAMSULOSIN HCL 0.4 MG CAP PO SCH (15:44)
--- NOTE | 2016-09-23 16:20 | HHI.PR ---
Review/Management Diagnosis severe encepjhalopathy with PLEDS on EEG. No clinical seizures Diagnosis/Plan: Subjective Subjective Comments No acute events reported No clinical sz. Active Medications Current Medications Medications (Trade) Dose Ordered Sig/Harry Route Start Time Stop Time Status Last Admin (NS Flush) 2 ml UNSCH PRN IV FLUSH 09/20/16 22:30 (NS Flush) 2 ml BID IV FLUSH 09/21/16 09:00 09/23/16 08:30 (Narcan Inj) 0.4 mg UNSCH PRN IV 09/20/16 22:30 (Tylenol) 650 mg Q6HR PRN PEG 09/21/16 01:30 (Aspirin Chew) 81 mg DAILY PEG 09/21/16 09:00 09/23/16 08:29 (Dulcolax Supp) 10 mg DAILY PRN RECTAL 09/21/16 01:30 (Ativan) 2 mg Q8HR PRN PEG 09/21/16 01:30 (Zofran Inj) 4 mg Q4HR PRN IV PUSH 09/21/16 01:30 (D50w (Vial) Inj) 25 ml UNSCH PRN IV PUSH 09/21/16 01:30 (Glucagon Inj) 1 mg UNSCH PRN OTHER 09/21/16 01:30 (Keppra Liq) 1,500 mg BID PEG 09/21/16 10:00 09/21/16 22:18 (Protonix Inj) 40 mg DAILY IV PUSH 09/21/16 10:01 09/23/16 08:29 (Cogentin) 1 mg BID PEG 09/21/16 21:00 09/21/16 22:18 (Coreg) 6.25 mg BID PEG 09/21/16 21:00 09/23/16 08:29 (Robinul) 1 mg TID PEG 09/21/16 13:00 09/23/16 12:46 (Depakene Liq) 1,500 mg Q8HR PEG 09/21/16 14:00 09/22/16 06:00 (Heparin Inj) 5,000 units Q8HR SQ 09/21/16 14:00 09/23/16 15:58 (Reglan Inj) 5 mg Q8HR IV PUSH 09/21/16 14:00 09/23/16 15:58 (NS Flush) See Protocol DAILY IV FLUSH 09/23/16 09:00 (NS Flush) See Protocol UNSCH PRN IV FLUSH 09/22/16 13:45 (Heparin Central Flush) See Protocol DAILY IV FLUSH 09/23/16 09:00 (Heparin Central Flush) See Protocol UNSCH PRN IV FLUSH 09/22/16 13:45 Sodium Chloride UNSCH PRN IV FLUSH 09/22/16 13:45 (NS 1000 ml Inj) 1,000 ml @ 75 mls/hr [id number] IV 09/22/16 17:30 09/23/16 05:24 (Trandate Inj) 10 mg Q4H PRN IV PUSH 09/23/16 14:00 Allergies Allergies Coded Allergies Penicillin (Verified Allergy, Unknown, 06/30/16) *MDRO Multi-Drug Resistant Organism (Verified Adverse Reaction, Unknown, MRSA , 07/03/16) Codeine (Verified Adverse Reaction, Unknown, Anaphylaxis, 06/30/16) Exam I&O / VS 09/22/16 09/22/16 09/23/16 15:00 23:00 07:00 Intake Total 1560 ml 652 ml 696 ml Output Total 250 ml 450 ml 325 ml Balance 1310 ml 202 ml 371 ml IV Total 1340 ml 472 ml 498 ml Tube Feeding 160 ml 180 ml 198 ml Other 60 ml Output Urine Total 250 ml 450 ml 325 ml Vital Signs Date Time Temp Pulse Resp B/P Pulse Ox O2 Delivery O2 Flow Rate FiO2 09/23/16 15:05 100 35 09/23/16 13:37 35 09/23/16 12:00 100 Mechanical Ventilator 35 09/23/16 12:00 98.3 69 10 149/84 100 09/23/16 12:00 69 09/23/16 11:24 100 55 09/23/16 10:00 68 09/23/16 08:00 75 09/23/16 08:00 100 Mechanical Ventilator 35 09/23/16 08:00 98.5 75 18 160/88 100 09/23/16 07:31 100 35 09/23/16 06:00 73 09/23/16 04:24 100 35 09/23/16 04:00 100 Mechanical Ventilator 40 09/23/16 04:00 78 09/23/16 04:00 98.5 78 18 150/83 100 09/23/16 02:00 71 09/23/16 01:21 100 35 09/23/16 00:00 73 09/23/16 00:00 100 Mechanical Ventilator 40 09/23/16 00:00 98.4 73 18 125/72 100 09/22/16 22:18 98 35 09/22/16 22:00 71 09/22/16 20:05 100 35 09/22/16 20:00 100 Mechanical Ventilator 40 09/22/16 20:00 78 09/22/16 20:00 98.8 78 18 148/81 100 09/22/16 18:00 78 Exam Comments min responsive PERRL Motor-no spontaneous limb movement. No tonic clonic activity Objective Micro and Labs Laboratory Tests Test 09/23/16 06:04 White Blood Count 8.9 Red Blood Count 2.70 Hemoglobin 8.3 Hematocrit 25.1 Mean Corpuscular Volume 93.0 Mean Corpuscular Hemoglobin 30.9 Mean Corpuscular Hemoglobin 33.3 Concent Red Cell Distribution Width 22.4 Platelet Count 158 Mean Platelet Volume 8.7 Neutrophils (%) (Auto) 66.5 Lymphocytes (%) (Auto) 15.0 Monocytes (%) (Auto) 18.3 Eosinophils (%) (Auto) 0.0 Basophils (%) (Auto) 0.2 Neutrophils # (Auto) 5.9 Lymphocytes # (Auto) 1.3 Monocytes # (Auto) 1.6 Eosinophils # (Auto) 0.0 Basophils # (Auto) 0.0 CBC Comment AUTO DIFF Differential Comment AUTO DIFF CONFIRMED Polychromasia 2.0 Hematology Comments Sodium Level 133 Potassium Level 4.4 Chloride Level 95 Carbon Dioxide Level 32.4 Anion Gap 6 Blood Urea Nitrogen 34 Creatinine 1.02 Estimat Glomerular Filtration 85 Rate Random Glucose 138 Calcium Level 10.1 Total Bilirubin 0.4 Aspartate Amino Transf 30 (AST/SGOT) Alanine Aminotransferase 10 (ALT/SGPT) Alkaline Phosphatase 108 Total Protein 8.8 Albumin 2.0 James Prasad. PhD Sep 23, 2016 16:20
--- NOTE | 2016-09-23 17:56 | HHI.PR ---
Subjective Remarks YOAA male multiple co morbid condition VDRF,Trach, tracheal stent Came back from [facility], [place] Small amount of trach secretions Tolerates CPAP Objective Vital Signs Vital Signs Date Time Temp Pulse Resp B/P Pulse Ox O2 Delivery O2 Flow Rate FiO2 09/23/16 16:00 98.1 75 19 173/98 100 09/23/16 16:00 75 09/23/16 16:00 100 Mechanical Ventilator 09/23/16 15:05 100 35 09/23/16 14:00 70 09/23/16 13:37 35 09/23/16 12:00 100 Mechanical Ventilator 35 09/23/16 12:00 98.3 69 10 149/84 100 09/23/16 12:00 69 09/23/16 11:24 100 55 09/23/16 10:00 68 09/23/16 08:00 75 09/23/16 08:00 100 Mechanical Ventilator 35 09/23/16 08:00 98.5 75 18 160/88 100 09/23/16 07:31 100 35 09/23/16 06:00 73 09/23/16 04:24 100 35 09/23/16 04:00 100 Mechanical Ventilator 40 09/23/16 04:00 78 09/23/16 04:00 98.5 78 18 150/83 100 09/23/16 02:00 71 09/23/16 01:21 100 35 09/23/16 00:00 73 09/23/16 00:00 100 Mechanical Ventilator 40 09/23/16 00:00 98.4 73 18 125/72 100 09/22/16 22:18 98 35 09/22/16 22:00 71 09/22/16 20:05 100 35 09/22/16 20:00 100 Mechanical Ventilator 40 09/22/16 20:00 78 09/22/16 20:00 98.8 78 18 148/81 100 09/22/16 18:00 78 I/O 09/22/16 09/22/16 09/22/16 09/23/16 09/23/16 09/23/16 07:00 15:00 23:00 07:00 15:00 23:00 Intake Total 750 ml 1560 ml 652 ml 696 ml 1112 ml Output Total 800 ml 250 ml 450 ml 325 ml 650 ml Balance -50 ml 1310 ml 202 ml 371 ml 462 ml IV Total 1340 ml 472 ml 498 ml 745 ml Tube Feeding 450 ml 160 ml 180 ml 198 ml 367 ml Other 300 ml 60 ml Output Urine Total 800 ml 250 ml 450 ml 325 ml 650 ml Result Diagram: 09/23/1660309/23/16603 Objective Remarks GENERAL: Elderly male, on Vent SKIN: Warm and dry. HEAD: Normocephalic. EYES: No scleral icterus. No injection or drainage. NECK: Supple, trachea midline. No JVD or lymphadenopathy. Has trach CARDIOVASCULAR: Regular rate and rhythm without murmurs, gallops, or rubs. RESPIRATORY: Breath sounds equal bilaterally. No accessory muscle use. GASTROINTESTINAL: Abdomen soft, non-tender, nondistended. PEG tube in place MUSCULOSKELETAL: No cyanosis, or edema. BACK: Nontender without obvious deformity. No CVA tenderness. A/P Assessment and Plan VDRF Trach Tracheal stent Sz disorder S/P AAA repair S/P cardiac arrest PLAN: Cont Vent support, cont CPAP Trach care Aerosol nebs TF Stable off sedation Daron Rock MD Sep 23, 2016 17:56
[2016-09-23] MEDS: LABETALOL HCL 100 MG/20 ML VIAL IV PUSH PRN (23:26)
[2016-09-24] VITALS (17 sets, daily range): BP systolic 149–179; BP diastolic 82–94; PULSE 66–85; RESP 16–22; TEMP 97.3–99.7; O2SAT 99–100
[2016-09-24] MEDS: RESP: ALBUTEROL 2.5 MG/IPRATROPIUM 0.5 MG NEB (SCH) NEB ×6 (04:02→23:32)
[2016-09-24] MEDS: VALPROIC ACID SYRUP 250 MG/5 ML UDC PEG SCH ×3 (05:52→21:09)
[2016-09-24] MEDS: METOCLOPRAMIDE HCL 10 MG/2 ML VIAL IV PUSH SCH ×3 (05:52→21:09)
[2016-09-24] MEDS: HEPARIN SODIUM - SQ 10,000 UNITS/ML VIAL SQ SCH ×3 (05:52→21:09)
[2016-09-24] MEDS: LABETALOL HCL 100 MG/20 ML VIAL IV PUSH PRN ×2 (06:17→13:07)
[2016-09-24] MEDS: ASPIRIN 81 MG CHEW TAB PEG SCH (08:16)
[2016-09-24] MEDS: CARVEDILOL 6.25 MG TAB PEG SCH (08:16)
[2016-09-24] MEDS: GLYCOPYRROLATE 1 MG TAB PEG SCH ×3 (08:16→18:07)
[2016-09-24] MEDS: BENZTROPINE MESYLATE 1 MG TAB PEG SCH ×2 (08:17→21:09)
[2016-09-24] MEDS: PANTOPRAZOLE SODIUM 40 MG VIAL IV PUSH SCH (08:17)
[2016-09-24] MEDS: SODIUM CHLORIDE 0.9% FLUSH 10 ML FLUSH IV FLUSH SCH ×3 (08:17→21:09)
[2016-09-24] MEDS: levETIRAcetam 500 MG/5 ML UDC PEG SCH ×2 (08:18→21:00)
[2016-09-24] MEDS: SODIUM CHLOR 0.9% 1000 ML INJ 1,000 ML IV SCH ×2 (08:18→22:50)
[2016-09-24] MEDS: RESP: TOBRAMYCIN SULFATE 300 MG/5 ML NEB NEB SCH ×2 (08:57→22:02)
--- NOTE | 2016-09-24 15:01 | HHI.CCPN ---
Subjective Remarks/Hospital Course 09/22: Patient was transferred from [facility] to [facility] in [place] on July 01, 2016. He was admitted to our hospital on June 30, 2016. Patient is a trach dependent and PEG dependent patient since about 2010 when we first saw him at our hospital. In June of this year, he presented to our emergency room and was admitted to the law librarian service. He was having blood clots through his PEG tube as well with respiratory failure requiring ventilator support. He has had history of tracheomalacia with tracheal stent placed in [facility] about 2 years prior. Subsequent workup here in June revealed his tracheal stent 80%occlusion with debris versus mass. Therapeutic bronchoscopy was done here which shows near complete occlusion of tracheal stent with organized clots and mucous. He was managed overnight by law librarian team and was transferred to [facility] because of this tracheal stent occlusion with hemoptysis. Patient was managed at [facility] for this tracheal stent occlusion and underwent multiple bronchoscopies and tracheostomy revision and tracheal stent revision with new stent placement. He also had cardiac arrest while in hospital on August 13, 2016 and August 14, 2016. He required ventilator support during the hospitalization and currently on FiO2 of 28% through trach. He was managed there for pseudomonas pneumonia with colonization and MRSA from bronchial lavage. 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 He was also managed for massive distention of the colon suspicious for volvulus versus ileus. He was finally stabilized and managed on PCU service at present and transferred back to [facility] on 09/20/16 when he was admitted by the hospitalist service to the floor [facility]. This morning patient was noted to be lethargic and an ABG revealed PCO2 in the 80s. He was transferred to [facility] with critical care consult being requested by Dr. Chen. He was placed on mechanical ventilation. I evaluated the patient shortly following his arrival. History was obtained by reviewing records and discussion with Dr. Chen. 09/23: Remains encephalopathic on mechanical ventilation via tracheostomy. Tube feeds Resumed yesterday and tolerating well currently. 09/24: Remains encephalopathic on mechanical ventilation via tracheostomy. Blood pressure running high. Increased Coreg and started lisinopril. Objective Vital Signs Date Time Temp Pulse Resp B/P Pulse Ox O2 Delivery O2 Flow Rate FiO2 09/24/16 12:00 100 Mechanical Ventilator 35 09/24/16 12:00 98.6 70 22 179/94 09/22/16 03:00 6.00 Intake and Output 09/23/16 09/23/16 09/24/16 08:00 16:00 00:00 Intake Total 696 ml 1112 ml Output Total 325 ml 650 ml Balance 371 ml 462 ml Result Diagram: 09/23/16 0604 09/23/16 0604 Imaging 09/22 CXR (portable) - personally reviewed: Tracheostomy in place, tracheal stent noted, good aeration bilateral lung casanova with prominent interstitial markings Objective Remarks Physical Exam GENERAL: This is a gentleman, noncommunicative, trach dependent, PEG dependent SKIN: Sacral decubiti with wound packing and discharge HEAD: Atraumatic. Normocephalic. EYES: Left-sided ptosis No scleral icterus. No injection or drainage. ENT: Nose without bleeding, purulent drainage or septal hematoma Airway patent. Tracheostomy in place NECK: Trachea midline. No JVD CARDIOVASCULAR: Regular rate and rhythm without murmurs, gallops, or rubs. RESPIRATORY: On mechanical ventilation via tracheostomy, Bilaterally decreased air entry GASTROINTESTINAL: Abdomen soft, non-tender, nondistended.No guarding. No superpubic tenderness. MUSCULOSKELETAL: Bilateral lower extremity contracture. Atrophic. No calf asymmetry. NEUROLOGICAL: Spontaneously opens his eyes. However not really tracking. Does not follow any commands. Bilateral upper and lower extremity contractures with muscle atrophy. A/P Assessment and Plan Impression: Acute respiratory failure requiring mechanical ventilation Acute respiratory acidosis Hypotension : responded to fluid bolus, hold antihypertensives. A/P Problem List: (1) Zcyrq-ht-mlchgsa respiratory failure ICD Code: J96.20 Status: Acute Plan: Patient with acute episode of hypoxemia into the 80's, suspect aspiration. Recieved Solumedrol 125 mg IV stat and 40 mg Iv Lasix prior to transfer to ICU. ABG shows respiratory acidosis with pH of 7.28, PCO2 80, PO2 of 77 and oxygen saturations of 90. Continue mechanical ventilation. Vent bundle, bronchodilators as needed. Pulmonary following. (2) Hyperkalemia ICD Code: E87.5 Status: Acute Plan: Potassium elevated at 6.0 Given D50 and Regular insulin IV. 2 grams of IV calcium chloride and 40 mg of IV lasix on 09/22 Follow-up BMP (3) Seizure disorder ICD Code: G40.909 Status: Chronic Plan: EEG done at [facility] showing epileptic discharges persistently. Negative MRI studies. Continue current anticonvulsants. Patient currently on Keppra 1500 mg via PEG twice a day. 09/22 daughter refusing Depakote and Keppra. Reviewed neurology consult and EEG. (4) Tracheostomy in place ICD Code: Z93.0 Status: Chronic Plan: Continue with trach care, suctioning as needed, aspiration precautions. Patient with high residuals. Advance tube feeds (Jevity) as tolerated. Check residuals. Continue Reglan. (5) S/P percutaneous endoscopic gastrostomy (PEG) tube placement ICD Code: Z93.1 Status: Chronic Plan: Patient with high residuals on 09/21 - started on Reglan IV scheduled. Diet consulted. (6) H/O cardiac arrest ICD Code: Z86.74 Status: Chronic Plan: Patient has history of cardiac arrest on August 13 on 08/14/16. Continue to monitor on telemetry. Palliative care consulted to help address goals of care and establish a clear CODE STATUS. At [facility] the patient had a limited DO NOT RESUSCITATE. 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 (8) Dementia ICD Code: F03.90 Status: Chronic Plan: Patient currently on Cogentin, Ativan as needed for anxiety. (9) Schizophrenia ICD Code: F20.9 Status: Chronic Plan: Not on any medications at this point. (10) Diabetes mellitus type 2, controlled ICD Code: E11.9 Status: Chronic Plan: Diet controlled. Blood sugar seems to be stable. Not on sliding scale. (11) CAD (coronary artery disease) ICD Code: I25.10 Status: Chronic Plan: Continue aspirin 81 mg. (12) Encephalopathy acute ICD Code: G93.40 Status: Acute Plan: Unclear what baseline is since patient had 2 cardiac arrests over at [facility]. Patient is more lethargic due to Co2 retention and anoxic encephalopathy. ABG Shows a pH of 7.28, PCO2 of 80, PO2 77. Placed on mechanical ventilation . Prophylaxis GI prophylaxis: Continue PPI. DVT plexus: SCDs, heparin subcutaneously. Rowdy Jacome MD Sep 24, 2016 15:01
[2016-09-24] MEDS: CARVEDILOL 12.5 MG TAB PEG SCH ×2 (15:51→21:09)
[2016-09-24] MEDS: TAMSULOSIN HCL 0.4 MG CAP PO SCH (15:52)
[2016-09-24] MEDS: LISINOPRIL 10 MG TAB PEG SCH (15:52)
--- NOTE | 2016-09-24 17:12 | HHI.PR ---
Subjective Remarks YOAA male multiple co morbid condition VDRF,Trach, tracheal stent Came back from [facility], [place] Small amount of trach secretions Tolerated CPAP for 6 hrs Now on ACV Objective Vital Signs Vital Signs Date Time Temp Pulse Resp B/P Pulse Ox O2 Delivery O2 Flow Rate FiO2 09/24/16 14:58 99 35 09/24/16 12:00 100 Mechanical Ventilator 35 09/24/16 12:00 98.6 70 22 179/94 100 09/24/16 12:00 82 09/24/16 12:00 35 09/24/16 12:00 100 35 09/24/16 10:00 72 09/24/16 08:57 100 35 09/24/16 08:57 35 09/24/16 08:00 35 09/24/16 08:00 98.8 70 18 165/85 100 09/24/16 08:00 70 09/24/16 08:00 100 Mechanical Ventilator 35 09/24/16 06:00 85 09/24/16 04:02 99 35 09/24/16 04:00 99.7 71 16 149/82 99 09/24/16 04:00 99 Mechanical Ventilator 35 09/24/16 04:00 71 09/24/16 04:00 35 09/24/16 02:00 71 09/24/16 00:00 35 09/24/16 00:00 97.3 69 18 160/92 99 09/24/16 00:00 69 09/24/16 00:00 99 Mechanical Ventilator 35 09/23/16 23:37 95 35 09/23/16 22:00 81 09/23/16 20:00 35 09/23/16 20:00 73 09/23/16 20:00 100 Mechanical Ventilator 35 09/23/16 20:00 98.1 73 18 168/90 100 09/23/16 19:40 100 35 09/23/16 18:00 71 I/O 09/23/16 09/23/16 09/23/16 09/24/16 09/24/16 09/24/16 07:00 15:00 23:00 07:00 15:00 23:00 Intake Total 696 ml 1112 ml 860 ml Output Total 325 ml 650 ml 375 ml Balance 371 ml 462 ml 485 ml Intake Oral 0 ml IV Total 498 ml 745 ml 482 ml Tube Feeding 198 ml 367 ml 378 ml Output Urine Total 325 ml 650 ml 375 ml # Bowel Movements 1 Result Diagram: 09/23/1660309/23/16603 Objective Remarks GENERAL: Elderly male, on Vent SKIN: Warm and dry. HEAD: Normocephalic. EYES: No scleral icterus. No injection or drainage. NECK: Supple, trachea midline. No JVD or lymphadenopathy. Has trach CARDIOVASCULAR: Regular rate and rhythm without murmurs, gallops, or rubs. RESPIRATORY: Breath sounds equal bilaterally. No accessory muscle use. GASTROINTESTINAL: Abdomen soft, non-tender, nondistended. PEG tube in place MUSCULOSKELETAL: No cyanosis, or edema. BACK: Nontender without obvious deformity. No CVA tenderness. A/P Assessment and Plan VDRF Trach Tracheal stent Sz disorder S/P AAA repair S/P cardiac arrest PLAN: Cont Vent support, Trach care Aerosol nebs TF Daily CPAP trial Daron Rock MD Sep 24, 2016 17:12
[2016-09-25] VITALS (16 sets, daily range): BP systolic 115–156; BP diastolic 66–83; PULSE 65–82; RESP 16–24; TEMP 97.8–99.6; O2SAT 100
[2016-09-25] MEDS: RESP: ALBUTEROL 2.5 MG/IPRATROPIUM 0.5 MG NEB (SCH) NEB ×5 (03:06→20:48)
[2016-09-25] MEDS: HEPARIN SODIUM - SQ 10,000 UNITS/ML VIAL SQ SCH ×3 (04:24→21:45)
[2016-09-25] MEDS: METOCLOPRAMIDE HCL 10 MG/2 ML VIAL IV PUSH SCH ×3 (04:24→21:44)
[2016-09-25] MEDS: VALPROIC ACID SYRUP 250 MG/5 ML UDC PEG SCH ×3 (04:24→21:43)
[2016-09-25] MEDS: LABETALOL HCL 100 MG/20 ML VIAL IV PUSH PRN (04:49)
[2016-09-25 05:54] LABS: ALKALINE PHOSPHATASE 105 U/L (45-117); ALT (GPT) 14 U/L (12-78); ANION GAP 6 MEQ/L (5-15); AST (GOT) 30 U/L (15-37); BICARBONATE 29.2 MEQ/L (21.0-32.0); BLOOD UREA NITROGEN 20 MG/DL (7-18); CHLORIDE 101 MEQ/L (98-107); GLOMERULAR FILTRATION RATE 144 ML/MIN (>89); POTASSIUM 3.9 MEQ/L (3.5-5.1); SODIUM (NA) 136 MEQ/L (136-145); TOTAL BILIRUBIN ADULT 0.3 MG/DL (0.2-1.0)
[2016-09-25 06:25] LABS: AUTOMATED NEUTROPHIL # 4.5 TH/MM3 (1.8-7.7); BASOPHIL % 0.4 % (0.0-2.0); EOSINOPHIL # 0.4 TH/MM3 (0-0.4); EOSINOPHIL % 4.9 % (0.0-4.0); HEMATOCRIT 22.8 % (39.0-51.0); HEMO FLAGS DIFF FINAL; LYMPH % 15.3 % (9.0-44.0); LYMPHOCYTE # 1.1 TH/MM3 (1.0-4.8); MEAN CELL VOLUME 94.8 FL (80.0-100.0); MEAN CORPUSCULAR HEMOGLOBIN 31.4 PG (27.0-34.0); MEAN CORPUSCULAR HGB CONC 33.1 % (32.0-36.0); MONO % 17.4 % (0.0-8.0); PLATELET COUNT 174 TH/MM3 (150-450); RED CELL DISTRIBUTION WIDTH 22.3 % (11.6-17.2); WHITE BLOOD COUNT 7.3 TH/MM3 (4.0-11.0)
[2016-09-25] MEDS: RESP: TOBRAMYCIN SULFATE 300 MG/5 ML NEB NEB SCH ×2 (08:15→20:00)
[2016-09-25] MEDS: LISINOPRIL 10 MG TAB PEG SCH (08:34)
[2016-09-25] MEDS: PANTOPRAZOLE SODIUM 40 MG VIAL IV PUSH SCH (08:34)
[2016-09-25] MEDS: CARVEDILOL 12.5 MG TAB PEG SCH ×2 (08:34→21:45)
[2016-09-25] MEDS: GLYCOPYRROLATE 1 MG TAB PEG SCH ×3 (08:34→16:51)
[2016-09-25] MEDS: SODIUM CHLORIDE 0.9% FLUSH 10 ML FLUSH IV FLUSH SCH ×3 (08:34→21:00)
[2016-09-25] MEDS: ASPIRIN 81 MG CHEW TAB PEG SCH (08:34)
[2016-09-25] MEDS: levETIRAcetam 500 MG/5 ML UDC PEG SCH ×2 (08:34→21:45)
[2016-09-25] MEDS: BENZTROPINE MESYLATE 1 MG TAB PEG SCH ×2 (08:34→21:45)
--- NOTE | 2016-09-25 12:05 | HHI.HCPN ---
Reason for visit a. To assist with evaluation and management of symptoms including: dyspnea, debility. b. To assist medical decision maker(s) with: better understanding of current medical conditions; weighing benefits/burdens of medical treatment options; making medical treatment decisions. . Subjective/Interval History Patient seen and examined ICU. Patient is unresponsive to verbal. Withdraws to noxious stimuli. Opens eyes to noxious stimuli. Does not track or follow commands. Remains on vent via trach. Hemoglobin 7.5. Albumin 1.9, tolerating TF at 60c/hr. Discussed with Dr. Jacome. . Family/friend interactions Spoke with daughterLibby via telephone. Medical update provided. She quickly informs me of the plan to bring dad home upon DC. She tells me they "have everything at home." She tells me the staff will not get an "accurate neurologic evaluation unless daughter, her , or her son are at the bedside." She tells me they have seen him much more responsive. Goals are aggressive including FULL CODE. . Advance Directives Living Will: Copy in medical record (living will declaration completed on September.) Health Care Surrogate: Copy in medical record Durable Power of Digital Traffic Coordinator: Copy in medical record Advance Directive Specifics Date completed: October 03, 2010 . Health Care Surrogate(s): Patient's daughter, Libby Smith, is designated as the health care surrogate decision maker. . Documented care wishes: Patient's living will was completed on October 13, 2010. In this document the patient declares that if at any time he is unable to make informed medical decisions for himself, and his treating physician and other consulting physicians have determined that he has a terminal condition (a condition caused by injury, disease or illness which is expected to cause ), if he is in a persistent vegetative state (a permanent state of unconsciousness), or if he has an end-stage condition (a condition caused by injury, disease or illness which has resulted and progressively severe and permanent deterioration, the patient directs that life-prolonging procedures be withheld or withdrawn when the use of such procedures would only artificially prolong life and are unlikely to offer a cure or remission of the condition. He directs that he be permitted to naturally with treatments limited to those that will keep him comfortable and relieve pain. . Significant change in goals: FULL CODE. Goals remain aggressive this time. . Objective Vital Signs Date Time Temp Pulse Resp B/P Pulse Ox O2 Delivery O2 Flow Rate FiO2 09/25/16 10:00 67 09/25/16 08:35 100 35 09/25/16 08:34 35 09/25/16 08:27 100 35 09/25/16 08:00 98.6 68 18 142/80 100 09/25/16 08:00 68 09/25/16 08:00 100 Mechanical Ventilator 35 09/25/16 08:00 35 09/25/16 06:00 68 09/25/16 04:50 100 35 09/25/16 04:00 73 09/25/16 04:00 35 09/25/16 04:00 98.4 73 18 127/74 100 09/25/16 04:00 100 Mechanical Ventilator 35 09/25/16 02:00 67 09/25/16 00:00 100 Mechanical Ventilator 35 09/25/16 00:00 67 09/25/16 00:00 98.3 67 20 156/79 100 09/25/16 00:00 35 09/24/16 23:32 100 35 09/24/16 22:00 66 09/24/16 20:00 35 09/24/16 20:00 97.9 71 18 157/88 100 09/24/16 20:00 100 Mechanical Ventilator 35 09/24/16 20:00 71 09/24/16 19:23 100 35 09/24/16 18:00 69 09/24/16 16:00 35 09/24/16 16:00 70 09/24/16 16:00 98.8 70 16 165/91 100 09/24/16 16:00 100 Mechanical Ventilator 35 09/24/16 14:58 99 35 09/24/16 14:00 67 Intake & Output 09/25/16 09/25/16 07:00 19:00 Intake Total 669 ml Output Total 400 ml Balance 269 ml Intake Oral 0 ml IV Total 374 ml Tube Feeding 295 ml Output Urine Total 400 ml # Bowel Movements 0 Physical Exam CONSTITUTIONAL/GENERAL: This is thin, elderly, critically ill appearing patient , in no acute distress. TUBES/LINES/DRAINS: PICC line, tracheostomy, PEG tube, Condom catheter, multipodus boots. SKIN: No jaundice, rashes, or lesions. Skin temperature appropriate. Not diaphoretic. EYES: Opens eyes to noxious stimuli, upward gaze, unable to visualize pupils. NECK: tracheostomy to mechanical ventilation. CARDIOVASCULAR: Regular rate and rhythm without murmurs, gallops, or rubs. RESPIRATORY/CHEST: On mechanical ventilation via tracheostomy. Breath sounds diminished bilaterally. GASTROINTESTINAL: Abdomen soft, non-tender, nondistended. PEG tube in place. Bowel sounds present. GENITOURINARY: Without palpable bladder distension. Condom catheter in place. MUSCULOSKELETAL: Extremities without clubbing, cyanosis, or edema. Muscle wasting noted. NEUROLOGICAL: Does not open eyes to verbal stimuli. Does not follow commands. Withdraws to noxious stimuli, opens eyes to noxious stimuli briefly. Does not track. Eyes with upward gaze. PSYCHIATRIC: Unable to assess secondary to patient's clinical condition. . Diagnostic Tests Laboratory Laboratory Tests Test 09/22/16 09/22/16 09/23/16 09/25/16 12:30 12:40 06:04 04:20 Blood Gas Puncture Site LT RADIAL Blood Gas Patient Temperature 98.6 Blood Gas HCO3 32 mmol/L (22-26) Blood Gas Base Excess 8.3 mmol/L (-2-2) Blood Gas Oxygen Saturation 96 % (90-100) Arterial Blood pH 7.48 (7.380-7.420) Arterial Blood Partial 44 mmHg (38-42) Pressure CO2 Arterial Blood Partial 140 mmHg Pressure O2 (61-120) Arterial Blood Oxygen Content 14.4 Vol % (12.0-20.0) Arterial Blood 2.4 % (0-4) Carboxyhemoglobin Arterial Blood Methemoglobin 0.9 % (0-2) Blood Gas Hemoglobin 10.4 G/DL (12.0-16.0) Oxygen Delivery Device VENTILATOR Blood Gas Ventilator Setting A/C 18/550/5 PEP Blood Gas Inspired Oxygen 40 % Sodium Level 134 MEQ/L 133 MEQ/L 136 MEQ/L (136-145) (136-145) (136-145) Potassium Level 5.0 MEQ/L 4.4 MEQ/L 3.9 MEQ/L (3.5-5.1) (3.5-5.1) (3.5-5.1) Chloride Level 94 MEQ/L 95 MEQ/L 101 MEQ/L (98-107) (98-107) (98-107) Carbon Dioxide Level 32.9 MEQ/L 32.4 MEQ/L 29.2 MEQ/L (21.0-32.0) (21.0-32.0) (21.0-32.0) Anion Gap 7 MEQ/L (5-15) 6 MEQ/L (5-15) 6 MEQ/L (5-15) Blood Urea Nitrogen 25 MG/DL (7-18) 34 MG/DL (7-18) 20 MG/DL (7-18) Creatinine 1.00 MG/DL 1.02 MG/DL 0.65 MG/DL (0.60-1.30) (0.60-1.30) (0.60-1.30) Estimat Glomerular Filtration 87 ML/MIN (>89) 85 ML/MIN (>89) 144 ML/MIN Rate (>89) Random Glucose 49 MG/DL 138 MG/DL 121 MG/DL (74-106) (74-106) (74-106) Calcium Level 9.0 MG/DL 10.1 MG/DL 9.0 MG/DL (8.5-10.1) (8.5-10.1) (8.5-10.1) Valproic Acid (Depakene) Level 76 MCG/ML (50-100) White Blood Count 8.9 TH/MM3 7.3 TH/MM3 (4.0-11.0) (4.0-11.0) Red Blood Count 2.70 MIL/MM3 2.40 MIL/MM3 (4.50-5.90) (4.50-5.90) Hemoglobin 8.3 GM/DL 7.5 GM/DL (13.0-17.0) (13.0-17.0) Hematocrit 25.1 % 22.8 % (39.0-51.0) (39.0-51.0) Mean Corpuscular Volume 93.0 FL 94.8 FL (80.0-100.0) (80.0-100.0) Mean Corpuscular Hemoglobin 30.9 PG 31.4 PG (27.0-34.0) (27.0-34.0) Mean Corpuscular Hemoglobin 33.3 % 33.1 % Concent (32.0-36.0) (32.0-36.0) Red Cell Distribution Width 22.4 % 22.3 % (11.6-17.2) (11.6-17.2) Platelet Count 158 TH/MM3 174 TH/MM3 (150-450) (150-450) Mean Platelet Volume 8.7 FL 8.3 FL (7.0-11.0) (7.0-11.0) Neutrophils (%) (Auto) 66.5 % 62.0 % (16.0-70.0) (16.0-70.0) Lymphocytes (%) (Auto) 15.0 % 15.3 % (9.0-44.0) (9.0-44.0) Monocytes (%) (Auto) 18.3 % 17.4 % (0.0-8.0) (0.0-8.0) Eosinophils (%) (Auto) 0.0 % (0.0-4.0) 4.9 % (0.0-4.0) Basophils (%) (Auto) 0.2 % (0.0-2.0) 0.4 % (0.0-2.0) Neutrophils # (Auto) 5.9 TH/MM3 4.5 TH/MM3 (1.8-7.7) (1.8-7.7) Lymphocytes # (Auto) 1.3 TH/MM3 1.1 TH/MM3 (1.0-4.8) (1.0-4.8) Monocytes # (Auto) 1.6 TH/MM3 1.3 TH/MM3 (0-0.9) (0-0.9) Eosinophils # (Auto) 0.0 TH/MM3 0.4 TH/MM3 (0-0.4) (0-0.4) Basophils # (Auto) 0.0 TH/MM3 0.0 TH/MM3 (0-0.2) (0-0.2) CBC Comment AUTO DIFF DIFF FINAL Differential Comment AUTO DIFF CONFIRMED Polychromasia 2.0 % (0.0-1.9) Hematology Comments Total Bilirubin 0.4 MG/DL 0.3 MG/DL (0.2-1.0) (0.2-1.0) Aspartate Amino Transf 30 U/L (15-37) 30 U/L (15-37) (AST/SGOT) Alanine Aminotransferase 10 U/L (12-78) 14 U/L (12-78) (ALT/SGPT) Alkaline Phosphatase 108 U/L 105 U/L (45-117) (45-117) Total Protein 8.8 GM/DL 8.1 GM/DL (6.4-8.2) (6.4-8.2) Albumin 2.0 GM/DL 1.9 GM/DL (3.4-5.0) (3.4-5.0) Result Diagram: 09/25/16 0420 09/25/16 0420 Imaging Last Impressions Chest X-Ray 09/22/16 0000 Signed Impressions: Service Date/Time: Thursday, September 22, 2016 13:23 - CONCLUSION: Interval placement of right-sided PICC line. Hector Zee MD . Assessment and Plan Disease Oriented Problem List: (1) Respiratory failure, acute and chronic (2) COPD (chronic obstructive pulmonary disease) (3) H/O cardiac arrest (4) Dysphagia as late effect of cerebrovascular accident (CVA) (5) Sepsis (6) Pneumonia (7) Seizure disorder (8) Tracheostomy in place (9) Anemia (10) Hyperkalemia (11) CAD (coronary artery disease) (12) Dementia (13) Schizophrenia (14) Diabetes mellitus type 2, controlled (15) Encephalopathy acute (16) S/P percutaneous endoscopic gastrostomy (PEG) tube placement (17) S/P AAA repair (18) Prostate cancer Symptom Scale: (1) Pain 0-10 Scale: Unable to quantify Comment: Possible causes of pain include immobility, bedbound status, invasiveness lines, tracheostomy, dyspnea, impaired skin integrity etc. PRN acetaminophen is available (2) Debility 0-10 Scale: Unable to quantify (3) Dyspnea 0-10 Scale: Unable to quantify Comment: Patient has transferred to [facility] after being found lethargic and hypoxic this morning. An ABG deal PCO2 in the 80s. Patient is currently on mechanical ventilation via tracheostomy. Chest x-ray today revealed trach tube in good position, esophageal stent present. Heart is minimally enlarged; pulmonary vascularity is normal; no alveolar consolidation or pneumothorax. . Pertinent Non-Medical Issues Psychosocial:Patient is a . He was living with his daughter at some point prior to his recent hospitalizations, and she was his primary caregiver. Patient's daughter, Libby, designated as the healthcare surrogate decision maker. Spiritual: Anabaptist barney Legal: Patient's daughter, Libby Smith, is the designated health care surrogate. Living will and DURABLE POWER OF BUCKSHOT SWAGE OPERATOR documents have also been completed and can be reviewed in the patient's EMR. Ethical issues impacting care: No known ethical issues impacting care at this time. . Important Contacts Libby Smith, daughter and [facility]: [phone] Robert Smith, family/other: [phone] . Prognosis Patient is a 80-year-old male patient with a history of dementia and paranoid schizophrenia. He has a complex medical history that includes multiple comorbid conditions. Patient has been hospitalized since June 30, 2016. He was transferred to [facility] for several weeks, transferring back to [facility] on 09/20/16. Status post cardiac arrest 2, multiple infections. Given patient's advanced age, complex medical history, and acute deconditioning status post long hospitalization coursehis overall prognosis is poor. . Code Status: Full Code Plan * FULL CODE * Decision-making: Patient's daughter, Libby Smith, is the designated health care surrogate. Living will and DURABLE POWER OF BUCKSHOT SWAGE OPERATOR documents have also been completed and can be reviewed in the patient's EMR. * Goals: 09/25/16 Spoke with daughterLibby via telephone. Medical update provided. She quickly informs me of the plan to bring dad home upon DC. She tells me they "have everything at home." She tells me the staff will not get an "accurate neurologic evaluation unless daughter, her , or her son are at the bedside." She tells me they have seen him much more responsive. Goals are aggressive including FULL CODE. * Daughter does not want Depakote, Keppra or Klonopin to be used as she feels that this is the reason for lethargy/lack of response. * Symptom managementdyspnea: remains in ICU on vent via trach. Failing CPAP trials. Pain: Possible causes of pain include immobility, bedbound status, invasiveness lines, tracheostomy, dyspnea, impaired skin integrity etc. PRN acetaminophen is available. Does not appear painful today. Debility - dependent for all care. No signs of neurologic recovery at this time. No new medication recommendations at this time. * Discussed with Dr. Jacome. * Will attempt to speak with Dr. Prasad, neurologist regarding prognosis. * Palliative care will continue to follow this patient throughout his hospitalization to establish trust, assist with symptom management and clarification of medical treatment goals. . Attestation To help prompt me to consider important information that might be impacting today's encounter and assessment, information from prior notes written by myself or my colleagues may have been "brought forward" into today's note. My signature on this note, however, is an attestation that I personally performed the exam, history, and/or decision-making noted today, and, unless otherwise indicated, the interactions with patient, family, and staff as well as the review of records all occurred today. I also attest that the listed assessment and stated plan reflect my best clinical judgment today based on the combination of historical information, prior notes, and today's exam/ interactions. When time spent is documented, it refers only to time spent today by the signer, or if indicated, combined time spent today by collaborating physician/nurse practitioner. . DAMASO JACKSON September 25, 2016 12:05
[2016-09-25] MEDS: SODIUM CHLOR 0.9% 1000 ML INJ 1,000 ML IV SCH ×2 (12:10→17:17)
--- NOTE | 2016-09-25 15:40 | HHI.CCPN ---
Subjective Remarks/Hospital Course 09/22: Patient was transferred from [facility] to [facility] in [place] on July 01, 2016. He was admitted to our hospital on June 30, 2016. Patient is a trach dependent and PEG dependent patient since about 2010 when we first saw him at our hospital. In June of this year, he presented to our emergency room and was admitted to the scenic arts supervisor service. He was having blood clots through his PEG tube as well with respiratory failure requiring ventilator support. He has had history of tracheomalacia with tracheal stent placed in [facility] about 2 years prior. Subsequent workup here in June revealed his tracheal stent 80%occlusion with debris versus mass. Therapeutic bronchoscopy was done here which shows near complete occlusion of tracheal stent with organized clots and mucous. He was managed overnight by scenic arts supervisor team and was transferred to [facility] because of this tracheal stent occlusion with hemoptysis. Patient was managed at [facility] for this tracheal stent occlusion and underwent multiple bronchoscopies and tracheostomy revision and tracheal stent revision with new stent placement. He also had cardiac arrest while in hospital on August 13, 2016 and August 14, 2016. He required ventilator support during the hospitalization and currently on FiO2 of 28% through trach. He was managed there for pseudomonas pneumonia with colonization and MRSA from bronchial lavage. 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 He was also managed for massive distention of the colon suspicious for volvulus versus ileus. He was finally stabilized and managed on PCU service at present and transferred back to [facility] on 09/20/16 when he was admitted by the hospitalist service to the floor on [facility]. This morning patient was noted to be lethargic and an ABG revealed PCO2 in the 80s. He was transferred to [facility] with critical care consult being requested by Dr. Chen. He was placed on mechanical ventilation. I evaluated the patient shortly following his arrival. History was obtained by reviewing records and discussion with Dr. Chen. 09/23: Remains encephalopathic on mechanical ventilation via tracheostomy. Tube feeds Resumed yesterday and tolerating well currently. 09/24: Remains encephalopathic on mechanical ventilation via tracheostomy. Blood pressure running high. Increased Coreg and started lisinopril. 09/25: Remains encephalopathic, on mechanical ventilation via tracheostomy. Tolerating tube feeds. Continue C Pap trials daily. Objective Vital Signs Date Time Temp Pulse Resp B/P Pulse Ox O2 Delivery O2 Flow Rate FiO2 09/25/16 14:00 72 09/25/16 12:00 35 09/25/16 12:00 100 Mechanical Ventilator 09/25/16 12:00 97.8 16 115/66 09/22/16 03:00 6.00 Intake and Output 09/24/16 09/24/16 09/25/16 08:00 16:00 00:00 Intake Total 860 ml 1011 ml Output Total 375 ml 950 ml Balance 485 ml 61 ml Result Diagram: 09/25/16 0420 09/25/16 0420 Imaging 09/22 CXR (portable) - personally reviewed: Tracheostomy in place, tracheal stent noted, good aeration bilateral lung casanova with prominent interstitial markings Objective Remarks Physical Exam GENERAL: This is a gentleman, noncommunicative, trach dependent, PEG dependent SKIN: Sacral decubiti with wound packing and discharge HEAD: Atraumatic. Normocephalic. EYES: Left-sided ptosis No scleral icterus. No injection or drainage. ENT: Nose without bleeding, purulent drainage or septal hematoma Airway patent. Tracheostomy in place NECK: Trachea midline. No JVD CARDIOVASCULAR: Regular rate and rhythm without murmurs, gallops, or rubs. RESPIRATORY: On mechanical ventilation via tracheostomy, Bilaterally decreased air entry GASTROINTESTINAL: Abdomen soft, non-tender, nondistended.No guarding. No superpubic tenderness. MUSCULOSKELETAL: Bilateral lower extremity contracture. Atrophic. No calf asymmetry. NEUROLOGICAL: Spontaneously opens his eyes. However not really tracking. Does not follow any commands. Bilateral upper and lower extremity contractures with muscle atrophy. A/P Assessment and Plan Impression: Acute respiratory failure requiring mechanical ventilation Acute respiratory acidosis Hypotension : Resolved with fluid bolus. A/P Problem List: (1) [id number] respiratory failure ICD Code: J96.20 Status: Acute Plan: Patient with acute episode of hypoxemia into the 80's, suspect aspiration. Recieved Solumedrol 125 mg IV stat and 40 mg Iv Lasix prior to transfer to ICU. ABG shows respiratory acidosis with pH of 7.28, PCO2 80, PO2 of 77 and oxygen saturations of 90. Continue mechanical ventilation. Vent bundle, bronchodilators as needed. Pulmonary following. Daily C Pap trials (2) Hyperkalemia ICD Code: E87.5 Status: Acute Plan: Potassium elevated at 6.0 Given D50 and Regular insulin IV. 2 grams of IV calcium chloride and 40 mg of IV lasix on 09/22 Follow-up BMP (3) Seizure disorder ICD Code: G40.909 Status: Chronic Plan: EEG done at [facility] showing epileptic discharges persistently. Negative MRI studies. Continue current anticonvulsants. Patient currently on Keppra 1500 mg via PEG twice a day. 09/22 daughter refusing Depakote and Keppra. Reviewed neurology consult and EEG. (4) Tracheostomy in place ICD Code: Z93.0 Status: Chronic Plan: Continue with trach care, suctioning as needed, aspiration precautions. Advance tube feeds (Jevity) as tolerated. Check residuals. Continue Reglan. (5) S/P percutaneous endoscopic gastrostomy (PEG) tube placement ICD Code: Z93.1 Status: Chronic Plan: Patient with high residuals on 09/21 - started on Reglan IV scheduled. Diet consulted. (6) H/O cardiac arrest ICD Code: Z86.74 Status: Chronic Plan: Patient has history of cardiac arrest on August 13 on 08/14/16. Continue to monitor on telemetry. Palliative care consulted to help address goals of care and establish a clear CODE STATUS. At [facility] the patient had a limited DO NOT RESUSCITATE. 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 (8) Dementia ICD Code: F03.90 Status: Chronic Plan: Patient currently on Cogentin, Ativan as needed for anxiety. (9) Schizophrenia ICD Code: F20.9 Status: Chronic Plan: Not on any medications at this point. (10) Diabetes mellitus type 2, controlled ICD Code: E11.9 Status: Chronic Plan: Diet controlled. Blood sugar seems to be stable. Not on sliding scale. (11) CAD (coronary artery disease) ICD Code: I25.10 Status: Chronic Plan: Continue aspirin 81 mg. (12) Encephalopathy acute ICD Code: G93.40 Status: Acute Plan: Unclear what baseline is since patient had 2 cardiac arrests over at [facility]. Patient is more lethargic due to Co2 retention and anoxic encephalopathy. ABG Shows a pH of 7.28, PCO2 of 80, PO2 77. Placed on mechanical ventilation . Prophylaxis GI prophylaxis: Continue PPI. DVT plexus: SCDs, heparin subcutaneously. Discussed with palliative care team. Patient remains full CODE STATUS at this time. We'll consider LTAC placement for vent weaning. Rowdy Jacome MD September 25, 2016 15:40
[2016-09-25] MEDS: TAMSULOSIN HCL 0.4 MG CAP PO SCH (15:41)
--- NOTE | 2016-09-25 16:40 | HHI.PR ---
Subjective Remarks YOAA male multiple co morbid condition VDRF,Trach, tracheal stent Came back from [facility] [place] Small amount of trach secretions Did't tolerate CPAP, On ACV Objective Vital Signs Vital Signs Date Time Temp Pulse Resp B/P Pulse Ox O2 Delivery O2 Flow Rate FiO2 09/25/16 16:00 68 09/25/16 16:00 100 Mechanical Ventilator 35 09/25/16 16:00 98.4 68 20 146/79 100 09/25/16 16:00 35 09/25/16 14:00 72 09/25/16 12:00 35 09/25/16 12:00 100 Mechanical Ventilator 35 09/25/16 12:00 68 09/25/16 12:00 97.8 68 16 115/66 100 09/25/16 12:00 100 35 09/25/16 10:00 67 09/25/16 08:35 100 35 09/25/16 08:34 35 09/25/16 08:27 100 35 09/25/16 08:00 98.6 68 18 142/80 100 09/25/16 08:00 68 09/25/16 08:00 100 Mechanical Ventilator 35 09/25/16 08:00 35 09/25/16 06:00 68 09/25/16 04:50 100 35 09/25/16 04:00 73 09/25/16 04:00 35 09/25/16 04:00 98.4 73 18 127/74 100 09/25/16 04:00 100 Mechanical Ventilator 35 09/25/16 02:00 67 09/25/16 00:00 100 Mechanical Ventilator 35 09/25/16 00:00 67 09/25/16 00:00 98.3 67 20 156/79 100 09/25/16 00:00 35 09/24/16 23:32 100 35 09/24/16 22:00 66 09/24/16 20:00 35 09/24/16 20:00 97.9 71 18 157/88 100 09/24/16 20:00 100 Mechanical Ventilator 35 09/24/16 20:00 71 09/24/16 19:23 100 35 09/24/16 18:00 69 I/O 09/24/16 09/24/16 09/24/16 09/25/16 09/25/16 09/25/16 07:00 15:00 23:00 07:00 15:00 23:00 Intake Total 860 ml 1011 ml 669 ml 1044 ml Output Total 375 ml 950 ml 400 ml 450 ml Balance 485 ml 61 ml 269 ml 594 ml Intake Oral 0 ml 0 ml 0 ml 0 ml IV Total 482 ml 623 ml 374 ml 557 ml Tube Feeding 378 ml 388 ml 295 ml 487 ml Output Urine Total 375 ml 950 ml 400 ml 450 ml # Bowel Movements 1 0 0 Result Diagram: 09/25/1641909/25/16419 Objective Remarks GENERAL: Elderly male, on Vent SKIN: Warm and dry. HEAD: Normocephalic. EYES: No scleral icterus. No injection or drainage. NECK: Supple, trachea midline. No JVD or lymphadenopathy. Has trach CARDIOVASCULAR: Regular rate and rhythm without murmurs, gallops, or rubs. RESPIRATORY: Breath sounds equal bilaterally. No accessory muscle use. GASTROINTESTINAL: Abdomen soft, non-tender, nondistended. PEG tube in place MUSCULOSKELETAL: No cyanosis, or edema. BACK: Nontender without obvious deformity. No CVA tenderness. A/P Assessment and Plan VDRF Trach Tracheal stent Sz disorder S/P AAA repair S/P cardiac arrest PLAN: Cont Vent support, Trach care Aerosol nebs TF Daily CPAP trial TF Daron Rock MD September 25, 2016 16:40
[2016-09-26] VITALS (19 sets, daily range): BP systolic 115–170; BP diastolic 61–89; PULSE 62–72; RESP 18–24; TEMP 97.7–99; O2SAT 96–100
[2016-09-26] MEDS: RESP: ALBUTEROL 2.5 MG/IPRATROPIUM 0.5 MG NEB (SCH) NEB ×6 (00:11→19:35)
[2016-09-26] MEDS: HEPARIN SODIUM - SQ 10,000 UNITS/ML VIAL SQ SCH ×3 (04:40→22:08)
[2016-09-26] MEDS: METOCLOPRAMIDE HCL 10 MG/2 ML VIAL IV PUSH SCH ×3 (04:40→22:08)
[2016-09-26] MEDS: VALPROIC ACID SYRUP 250 MG/5 ML UDC PEG SCH ×3 (04:40→22:08)
[2016-09-26] MEDS: levETIRAcetam 500 MG/5 ML UDC PEG SCH ×2 (08:14→22:08)
[2016-09-26] MEDS: SODIUM CHLOR 0.9% 1000 ML INJ 1,000 ML IV SCH (08:14)
[2016-09-26] MEDS: ASPIRIN 81 MG CHEW TAB PEG SCH (08:15)
[2016-09-26] MEDS: LISINOPRIL 10 MG TAB PEG SCH (08:15)
[2016-09-26] MEDS: GLYCOPYRROLATE 1 MG TAB PEG SCH ×3 (08:15→17:10)
[2016-09-26] MEDS: CARVEDILOL 12.5 MG TAB PEG SCH ×2 (08:15→22:09)
[2016-09-26] MEDS: BENZTROPINE MESYLATE 1 MG TAB PEG SCH ×2 (08:16→22:09)
[2016-09-26] MEDS: PANTOPRAZOLE SODIUM 40 MG VIAL IV PUSH SCH (08:16)
[2016-09-26] MEDS: SODIUM CHLORIDE 0.9% FLUSH 10 ML FLUSH IV FLUSH SCH ×3 (08:17→22:09)
[2016-09-26] MEDS: RESP: TOBRAMYCIN SULFATE 300 MG/5 ML NEB NEB SCH ×2 (08:33→19:37)
[2016-09-26 09:22] LABS: ALKALINE PHOSPHATASE 108 U/L (45-117); ALT (GPT) 19 U/L (12-78); ANION GAP 7 MEQ/L (5-15); AST (GOT) 33 U/L (15-37); BICARBONATE 27.9 MEQ/L (21.0-32.0); BLOOD UREA NITROGEN 17 MG/DL (7-18); CHLORIDE 104 MEQ/L (98-107); GLOMERULAR FILTRATION RATE 130 ML/MIN (>89); POTASSIUM 4.1 MEQ/L (3.5-5.1); SODIUM (NA) 139 MEQ/L (136-145); TOTAL BILIRUBIN ADULT 0.3 MG/DL (0.2-1.0)
[2016-09-26 09:25] LABS: AUTOMATED NEUTROPHIL # 3.5 TH/MM3 (1.8-7.7); BASOPHIL % 0.7 % (0.0-2.0); EOSINOPHIL # 0.7 TH/MM3 (0-0.4); EOSINOPHIL % 9.9 % (0.0-4.0); HEMATOCRIT 21.8 % (39.0-51.0); HEMO FLAGS DIFF FINAL; LYMPH % 23.3 % (9.0-44.0); LYMPHOCYTE # 1.6 TH/MM3 (1.0-4.8); MEAN CELL VOLUME 96.7 FL (80.0-100.0); MEAN CORPUSCULAR HEMOGLOBIN 32.2 PG (27.0-34.0); MEAN CORPUSCULAR HGB CONC 33.3 % (32.0-36.0); MONO % 14.6 % (0.0-8.0); NEUT % 51.5 % (16.0-70.0); PLATELET COUNT 198 TH/MM3 (150-450); RED BLOOD COUNT 2.25 MIL/MM3 (4.50-5.90); RED CELL DISTRIBUTION WIDTH 22.1 % (11.6-17.2); WHITE BLOOD COUNT 6.8 TH/MM3 (4.0-11.0)
[2016-09-26] MEDS: TAMSULOSIN HCL 0.4 MG CAP PO SCH (15:07)
[2016-09-26] MEDS: LABETALOL HCL 100 MG/20 ML VIAL IV PUSH PRN (17:13)
--- NOTE | 2016-09-26 18:37 | HHI.CCPN ---
Subjective Remarks/Hospital Course 09/22: Patient was transferred from [facility] to [facility] in [place] on July 01, 2016. He was admitted to our hospital on June 30, 2016. Patient is a trach dependent and PEG dependent patient since about 2010 when we first saw him at our hospital. In June of this year, he presented to our emergency room and was admitted to the [employer]er mechanical [employer] service. He was having blood clots through his PEG tube as well with respiratory failure requiring ventilator support. He has had history of tracheomalacia with tracheal stent placed in [facility] about 2 years prior. Subsequent workup here in June revealed his tracheal stent 80%occlusion with debris versus mass. Therapeutic bronchoscopy was done here which shows near complete occlusion of tracheal stent with organized clots and mucous. He was managed overnight by [employer] team and was transferred to [facility] because of this tracheal stent occlusion with hemoptysis. Patient was managed at [facility] for this tracheal stent occlusion and underwent multiple bronchoscopies and tracheostomy revision and tracheal stent revision with new stent placement. He also had cardiac arrest while in hospital on August 13, 2016 and August 14, 2016. He required ventilator support during the hospitalization and currently on FiO2 of 28% through trach. He was managed there for pseudomonas pneumonia with colonization and MRSA from bronchial lavage. 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 He was also managed for massive distention of the colon suspicious for volvulus versus ileus. He was finally stabilized and managed on PCU service at present and transferred back to [facility] on 09/20/16 when he was admitted by the hospitalist service to the floor on [facility]. This morning patient was noted to be lethargic and an ABG revealed PCO2 in the 80s. He was transferred to [facility] with critical care consult being requested by Dr. Chen. He was placed on mechanical ventilation. I evaluated the patient shortly following his arrival. History was obtained by reviewing records and discussion with Dr. Chen. 09/23: Remains encephalopathic on mechanical ventilation via tracheostomy. Tube feeds Resumed yesterday and tolerating well currently. 09/24: Remains encephalopathic on mechanical ventilation via tracheostomy. Blood pressure running high. Increased Coreg and started lisinopril. 09/25: Remains encephalopathic, on mechanical ventilation via tracheostomy. Tolerating tube feeds. Continue C Pap trials daily. 09/26: Remains encephalopathic, on mechanical ventilation via tracheostomy. Having apneic episodes with C Pap trials today. Tolerating tube feeds. Objective Vital Signs Date Time Temp Pulse Resp B/P Pulse Ox O2 Delivery O2 Flow Rate FiO2 09/26/16 18:12 100 35 09/26/16 18:00 66 09/26/16 16:00 Mechanical Ventilator 09/26/16 16:00 97.7 20 139/76 Intake and Output 09/25/16 09/25/16 09/26/16 08:00 16:00 00:00 Intake Total 669 ml 1044 ml Output Total 400 ml 450 ml Balance 269 ml 594 ml Result Diagram: 09/26/16 0830 09/26/16 0830 Imaging 09/22 CXR (portable) - personally reviewed: Tracheostomy in place, tracheal stent noted, good aeration bilateral lung casanova with prominent interstitial markings Objective Remarks Physical Exam GENERAL: This is a gentleman, noncommunicative, trach dependent, PEG dependent SKIN: Sacral decubiti with wound packing and discharge HEAD: Atraumatic. Normocephalic. EYES: Left-sided ptosis No scleral icterus. No injection or drainage. ENT: Nose without bleeding, purulent drainage or septal hematoma Airway patent. Tracheostomy in place NECK: Trachea midline. No JVD CARDIOVASCULAR: Regular rate and rhythm without murmurs, gallops, or rubs. RESPIRATORY: On mechanical ventilation via tracheostomy, Bilaterally decreased air entry GASTROINTESTINAL: Abdomen soft, non-tender, nondistended.No guarding. No superpubic tenderness. MUSCULOSKELETAL: Bilateral lower extremity contracture. Atrophic. No calf asymmetry. NEUROLOGICAL: Spontaneously opens his eyes. However not really tracking. Does not follow any commands. Bilateral upper and lower extremity contractures with muscle atrophy. A/P Assessment and Plan Impression: Acute respiratory failure requiring mechanical ventilation Acute respiratory acidosis Hypotension : Resolved with fluid bolus. A/P Problem List: (1) Cnhzq-[id number] respiratory failure ICD Code: J96.20 Status: Acute Plan: Patient with acute episode of hypoxemia into the 80's, suspect aspiration. Recieved Solumedrol 125 mg IV stat and 40 mg Iv Lasix prior to transfer to ICU. ABG shows respiratory acidosis with pH of 7.28, PCO2 80, PO2 of 77 and oxygen saturations of 90. Continue mechanical ventilation. Vent bundle, bronchodilators as needed. Pulmonary following. Daily C Pap trials (2) Hyperkalemia ICD Code: E87.5 Status: Acute Plan: Potassium elevated at 6.0 Given D50 and Regular insulin IV. 2 grams of IV calcium chloride and 40 mg of IV lasix on 09/22 Follow BMP (3) Seizure disorder ICD Code: G40.909 Status: Chronic Plan: EEG done at [facility] showing epileptic discharges persistently. Negative MRI studies. Continue current anticonvulsants. Patient currently on Keppra 1500 mg via PEG twice a day. 09/22 daughter refusing Depakote and Keppra. Reviewed neurology consult and EEG. (4) Tracheostomy in place ICD Code: Z93.0 Status: Chronic Plan: Continue with trach care, suctioning as needed, aspiration precautions. Advance tube feeds (Jevity) as tolerated. Check residuals. Continue Reglan. (5) S/P percutaneous endoscopic gastrostomy (PEG) tube placement ICD Code: Z93.1 Status: Chronic Plan: Patient with high residuals on 09/21 - started on Reglan IV scheduled. Diet consulted. (6) H/O cardiac arrest ICD Code: Z86.74 Status: Chronic Plan: Patient has history of cardiac arrest on August 13 on 08/14/16. Continue to monitor on telemetry. Palliative care consulted to help address goals of care and establish a clear CODE STATUS. At [facility] the patient had a limited DO NOT RESUSCITATE. 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 (8) Dementia ICD Code: F03.90 Status: Chronic Plan: Patient currently on Cogentin, Ativan as needed for anxiety. (9) Schizophrenia ICD Code: F20.9 Status: Chronic Plan: Not on any medications at this point. (10) Diabetes mellitus type 2, controlled ICD Code: E11.9 Status: Chronic Plan: Diet controlled. Blood sugar seems to be stable. Not on sliding scale. (11) CAD (coronary artery disease) ICD Code: I25.10 Status: Chronic Plan: Continue aspirin 81 mg. (12) Encephalopathy acute ICD Code: G93.40 Status: Acute Plan: Unclear what baseline is since patient had 2 cardiac arrests over at [facility]. Patient is more lethargic due to Co2 retention and anoxic encephalopathy. ABG Shows a pH of 7.28, PCO2 of 80, PO2 77. Placed on mechanical ventilation . Prophylaxis GI prophylaxis: Continue PPI. DVT plexus: SCDs, heparin subcutaneously. Discussed with palliative care team. Patient remains full CODE STATUS at this time. Consider LTAC placement for vent weaning. Rowdy Jacome MD September 26, 2016 18:37
--- NOTE | 2016-09-26 19:13 | HHI.PR ---
Subjective Remarks YOAA male multiple co morbid condition VDRF,Trach, tracheal stent Came back from [facility], [place] Small amount of trach secretions Tolerated CPAP 10 hrs Objective Vital Signs Vital Signs Date Time Temp Pulse Resp B/P Pulse Ox O2 Delivery O2 Flow Rate FiO2 09/26/16 18:12 100 35 09/26/16 18:00 66 09/26/16 16:00 100 Mechanical Ventilator 09/26/16 16:00 72 09/26/16 16:00 97.7 72 20 139/76 99 09/26/16 16:00 35 09/26/16 15:49 100 35 09/26/16 14:00 69 09/26/16 12:00 35 09/26/16 12:00 98.4 63 24 115/61 100 09/26/16 12:00 63 09/26/16 12:00 100 Mechanical Ventilator 09/26/16 11:19 100 35 09/26/16 10:00 68 09/26/16 09:48 35 09/26/16 09:45 35 09/26/16 09:18 35 09/26/16 08:00 97.7 62 18 155/74 100 09/26/16 08:00 100 Mechanical Ventilator 09/26/16 08:00 62 09/26/16 08:00 35 09/26/16 07:51 100 35 09/26/16 06:00 65 09/26/16 04:17 100 35 09/26/16 04:00 68 09/26/16 04:00 98.6 68 21 170/88 100 09/26/16 04:00 35 09/26/16 04:00 100 Mechanical Ventilator 09/26/16 02:00 68 09/26/16 00:14 100 35 09/26/16 00:00 100 Mechanical Ventilator 35 09/26/16 00:00 72 09/26/16 00:00 99.0 72 20 156/89 100 09/26/16 00:00 35 09/25/16 22:00 82 09/25/16 20:39 100 35 09/25/16 20:00 100 Mechanical Ventilator 35 09/25/16 20:00 35 09/25/16 20:00 65 09/25/16 20:00 99.6 65 24 154/83 100 I/O 5/1/17 5/1/17 09/25/16 09/26/16 09/26/16 09/26/16 07:00 15:00 23:00 07:00 15:00 23:00 Intake Total 669 ml 1044 ml 878 ml 919 ml Output Total 400 ml 450 ml 500 ml 1600 ml Balance 269 ml 594 ml 378 ml -681 ml Intake Oral 0 ml 0 ml IV Total 374 ml 557 ml 524 ml 412 ml Tube Feeding 295 ml 487 ml 354 ml 507 ml Output Urine Total 400 ml 450 ml 500 ml 1600 ml # Bowel Movements 0 0 1 0 Result Diagram: 09/26/1682909/26/16829 Objective Remarks GENERAL: Elderly male, on Vent SKIN: Warm and dry. HEAD: Normocephalic. EYES: No scleral icterus. No injection or drainage. NECK: Supple, trachea midline. No JVD or lymphadenopathy. Has trach CARDIOVASCULAR: Regular rate and rhythm without murmurs, gallops, or rubs. RESPIRATORY: Breath sounds equal bilaterally. No accessory muscle use. GASTROINTESTINAL: Abdomen soft, non-tender, nondistended. PEG tube in place MUSCULOSKELETAL: No cyanosis, or edema. BACK: Nontender without obvious deformity. No CVA tenderness. A/P Assessment and Plan VDRF Trach Tracheal stent Sz disorder S/P AAA repair S/P cardiac arrest PLAN: Rest with ACV Trach care Aerosol nebs TF Daily CPAP trial TF Daron Rock MD September 26, 2016 19:13
[2016-09-27] VITALS (19 sets, daily range): BP systolic 121–164; BP diastolic 66–92; PULSE 64–77; RESP 18–25; TEMP 98.2–98.5; O2SAT 97–100
[2016-09-27 04:42] LABS: ANION GAP 6 MEQ/L (5-15); AST (GOT) 31 U/L (15-37); BICARBONATE 28.9 MEQ/L (21.0-32.0); BLOOD UREA NITROGEN 16 MG/DL (7-18); CHLORIDE 102 MEQ/L (98-107); GLOMERULAR FILTRATION RATE 152 ML/MIN (>89); POTASSIUM 4.1 MEQ/L (3.5-5.1); SODIUM (NA) 137 MEQ/L (136-145)
[2016-09-27 04:46] LABS: ALKALINE PHOSPHATASE 115 U/L (45-117); ALT (GPT) 18 U/L (12-78); TOTAL BILIRUBIN ADULT 0.3 MG/DL (0.2-1.0)
[2016-09-27 05:33] LABS: AUTOMATED NEUTROPHIL # 3.5 TH/MM3 (1.8-7.7); BASOPHIL # 0.1 TH/MM3 (0-0.2); BASOPHIL % 0.8 % (0.0-2.0); EOSINOPHIL # 0.6 TH/MM3 (0-0.4); EOSINOPHIL % 8.6 % (0.0-4.0); HEMATOCRIT 24.7 % (39.0-51.0); HEMO FLAGS DIFF FINAL; LYMPH % 21.5 % (9.0-44.0); LYMPHOCYTE # 1.4 TH/MM3 (1.0-4.8); MEAN CELL VOLUME 98.8 FL (80.0-100.0); MEAN CORPUSCULAR HEMOGLOBIN 32.3 PG (27.0-34.0); MEAN CORPUSCULAR HGB CONC 32.7 % (32.0-36.0); MONO % 14.5 % (0.0-8.0); NEUT % 54.6 % (16.0-70.0); PLATELET COUNT 221 TH/MM3 (150-450); RED CELL DISTRIBUTION WIDTH 22.2 % (11.6-17.2); WHITE BLOOD COUNT 6.5 TH/MM3 (4.0-11.0)
[2016-09-27] MEDS: METOCLOPRAMIDE HCL 10 MG/2 ML VIAL IV PUSH SCH ×3 (05:39→22:01)
[2016-09-27] MEDS: VALPROIC ACID SYRUP 250 MG/5 ML UDC PEG SCH ×3 (05:40→22:00)
[2016-09-27] MEDS: HEPARIN SODIUM - SQ 10,000 UNITS/ML VIAL SQ SCH ×3 (05:40→22:00)
[2016-09-27] MEDS: SODIUM CHLORIDE 0.9% FLUSH 10 ML FLUSH IV FLUSH SCH ×3 (09:00→21:00)
[2016-09-27] MEDS: PANTOPRAZOLE SODIUM 40 MG VIAL IV PUSH SCH (09:10)
[2016-09-27] MEDS: GLYCOPYRROLATE 1 MG TAB PEG SCH ×3 (09:10→17:06)
[2016-09-27] MEDS: CARVEDILOL 12.5 MG TAB PEG SCH ×2 (09:10→22:02)
[2016-09-27] MEDS: LISINOPRIL 10 MG TAB PEG SCH (09:10)
[2016-09-27] MEDS: levETIRAcetam 500 MG/5 ML UDC PEG SCH ×2 (09:10→22:01)
[2016-09-27] MEDS: ASPIRIN 81 MG CHEW TAB PEG SCH (09:10)
[2016-09-27] MEDS: BENZTROPINE MESYLATE 1 MG TAB PEG SCH ×2 (09:10→22:02)
[2016-09-27] MEDS: RESP: TOBRAMYCIN SULFATE 300 MG/5 ML NEB NEB SCH ×2 (09:16→19:25)
[2016-09-27] MEDS: TAMSULOSIN HCL 0.4 MG CAP PO SCH (16:00)
--- NOTE | 2016-09-27 18:24 | HHI.PR ---
Review/Management Diagnosis severe encepjhalopathy with PLEDS on EEG. No clinical seizures Diagnosis/Plan: Subjective Subjective Comments No acute events reported no clinical sz Active Medications Current Medications Medications (Trade) Dose Ordered Sig/Harry Route Start Time Stop Time Status Last Admin (NS Flush) 2 ml UNSCH PRN IV FLUSH 09/20/16 22:30 (NS Flush) 2 ml BID IV FLUSH 09/21/16 09:00 09/27/16 09:00 (Narcan Inj) 0.4 mg UNSCH PRN IV 09/20/16 22:30 (Tylenol) 650 mg Q6HR PRN PEG 09/21/16 01:30 09/26/16 17:50 (Aspirin Chew) 81 mg DAILY PEG 09/21/16 09:00 09/27/16 09:10 (Dulcolax Supp) 10 mg DAILY PRN RECTAL 09/21/16 01:30 (Ativan) 2 mg Q8HR PRN PEG 09/21/16 01:30 (Zofran Inj) 4 mg Q4HR PRN IV PUSH 09/21/16 01:30 (D50w (Vial) Inj) 25 ml UNSCH PRN IV PUSH 09/21/16 01:30 (Glucagon Inj) 1 mg UNSCH PRN OTHER 09/21/16 01:30 (Keppra Liq) 1,500 mg BID PEG 09/21/16 10:00 09/27/16 09:10 (Protonix Inj) 40 mg DAILY IV PUSH 09/21/16 10:01 09/27/16 09:10 (Cogentin) 1 mg BID PEG 09/21/16 21:00 09/27/16 09:10 (Robinul) 1 mg TID PEG 09/21/16 13:00 09/27/16 17:06 (Depakene Liq) 1,500 mg Q8HR PEG 09/21/16 14:00 09/27/16 13:58 (Heparin Inj) 5,000 units Q8HR SQ 09/21/16 14:00 09/27/16 13:58 (Reglan Inj) 5 mg Q8HR IV PUSH 09/21/16 14:00 09/27/16 13:58 (NS Flush) See Protocol DAILY IV FLUSH 09/23/16 09:00 09/27/16 09:00 (NS Flush) See Protocol UNSCH PRN IV FLUSH 09/22/16 13:45 (Heparin Central Flush) See Protocol DAILY IV FLUSH 09/23/16 09:00 09/27/16 09:09 (Heparin Central Flush) See Protocol UNSCH PRN IV FLUSH 09/22/16 13:45 Sodium Chloride UNSCH PRN IV FLUSH 09/22/16 13:45 (NS 1000 ml Inj) 1,000 ml @ 0 mls/hr Q0M IV 09/22/16 17:30 09/26/16 08:14 (Trandate Inj) 10 mg Q4H PRN IV PUSH 09/23/16 14:00 09/26/16 17:13 (Coreg) 12.5 mg BID PEG 09/24/16 15:00 09/27/16 09:10 (Prinivil) 10 mg DAILY PEG 09/24/16 14:45 09/27/16 09:10 Allergies Allergies Coded Allergies Penicillin (Verified Allergy, Unknown, 06/30/16) *MDRO Multi-Drug Resistant Organism (Verified Adverse Reaction, Unknown, MRSA , 07/03/16) Codeine (Verified Adverse Reaction, Unknown, Anaphylaxis, 06/30/16) Exam I&O / VS 09/26/16 09/26/16 09/27/16 15:00 23:00 07:00 Intake Total 919 ml 424 ml Output Total 1600 ml 400 ml Balance -681 ml 24 ml IV Total 412 ml 75 ml Tube Feeding 507 ml 349 ml Output Urine Total 1600 ml 400 ml # Bowel Movements 0 1 Vital Signs Date Time Temp Pulse Resp B/P Pulse Ox O2 Delivery O2 Flow Rate FiO2 09/27/16 16:00 98.5 71 20 121/66 99 09/27/16 16:00 100 Mechanical Ventilator 09/27/16 16:00 35 09/27/16 16:00 70 09/27/16 15:54 97 35 09/27/16 14:00 73 09/27/16 12:00 92 T-Piece 09/27/16 12:00 77 09/27/16 12:00 98.4 68 24 164/84 98 09/27/16 11:46 100 T-piece 5.00 28 09/27/16 10:45 35 09/27/16 10:45 100 35 09/27/16 10:00 69 5/3/17 09:06 100 35 09/27/16 08:00 69 09/27/16 08:00 100 Mechanical Ventilator 09/27/16 08:00 98.5 69 25 147/84 100 09/27/16 08:00 35 09/27/16 06:00 64 09/27/16 04:13 100 35 09/27/16 04:00 98.2 68 19 162/92 100 09/27/16 04:00 68 09/27/16 04:00 35 09/27/16 04:00 100 Mechanical Ventilator 09/27/16 02:00 66 09/27/16 00:07 100 35 09/27/16 00:00 74 09/27/16 00:00 98.2 74 24 154/89 100 09/27/16 00:00 35 09/27/16 00:00 100 Mechanical Ventilator 09/26/16 22:00 65 09/26/16 20:00 63 09/26/16 20:00 35 09/26/16 20:00 100 Mechanical Ventilator 09/26/16 20:00 98.4 63 18 151/80 100 09/26/16 19:37 96 35 Exam Comments nonresponsive PERRL Motor-no spontaneous limb movement. No tonic clonic activity Objective Micro and Labs Laboratory Tests Test 09/27/16 03:38 White Blood Count 6.5 Red Blood Count 2.50 Hemoglobin 8.1 Hematocrit 24.7 Mean Corpuscular Volume 98.8 Mean Corpuscular Hemoglobin 32.3 Mean Corpuscular Hemoglobin 32.7 Concent Red Cell Distribution Width 22.2 Platelet Count 221 Mean Platelet Volume 8.2 Neutrophils (%) (Auto) 54.6 Lymphocytes (%) (Auto) 21.5 Monocytes (%) (Auto) 14.5 Eosinophils (%) (Auto) 8.6 Basophils (%) (Auto) 0.8 Neutrophils # (Auto) 3.5 Lymphocytes # (Auto) 1.4 Monocytes # (Auto) 0.9 Eosinophils # (Auto) 0.6 Basophils # (Auto) 0.1 CBC Comment DIFF FINAL Differential Comment Hematology Comments Sodium Level 137 Potassium Level 4.1 Chloride Level 102 Carbon Dioxide Level 28.9 Anion Gap 6 Blood Urea Nitrogen 16 Creatinine 0.62 Estimat Glomerular Filtration 152 Rate Random Glucose 107 Calcium Level 8.8 Total Bilirubin 0.3 Aspartate Amino Transf 31 (AST/SGOT) Alanine Aminotransferase 18 (ALT/SGPT) Alkaline Phosphatase 115 Total Protein 8.4 Albumin 2.0 James Prasad PhD September 27, 2016 18:24
--- NOTE | 2016-09-27 20:02 | HHI.PR ---
Subjective Remarks YOAA male multiple co morbid condition VDRF,Trach, tracheal stent Came back from [facility], [place] Tolerated T-tube, now resting with ACV Objective Vital Signs Vital Signs Date Time Temp Pulse Resp B/P Pulse Ox O2 Delivery O2 Flow Rate FiO2 09/27/16 19:28 100 35 09/27/16 18:00 68 09/27/16 16:00 98.5 71 20 121/66 99 09/27/16 16:00 100 Mechanical Ventilator 09/27/16 16:00 35 09/27/16 16:00 70 09/27/16 15:54 97 35 09/27/16 14:00 73 09/27/16 12:00 92 T-Piece 09/27/16 12:00 77 09/27/16 12:00 98.4 68 24 164/84 98 09/27/16 11:46 100 T-piece 5.00 28 09/27/16 10:45 35 09/27/16 10:45 100 35 09/27/16 10:00 69 09/27/16 09:06 100 35 09/27/16 08:00 69 09/27/16 08:00 100 Mechanical Ventilator 09/27/16 08:00 98.5 69 25 147/84 100 09/27/16 08:00 35 09/27/16 06:00 64 09/27/16 04:13 100 35 09/27/16 04:00 98.2 68 19 162/92 100 09/27/16 04:00 68 09/27/16 04:00 35 09/27/16 04:00 100 Mechanical Ventilator 09/27/16 02:00 66 09/27/16 00:07 100 35 09/27/16 00:00 74 09/27/16 00:00 98.2 74 24 154/89 100 09/27/16 00:00 35 09/27/16 00:00 100 Mechanical Ventilator 09/26/16 22:00 65 I/O 09/26/16 09/26/16 09/26/16 09/27/16 09/27/16 09/27/16 07:00 15:00 23:00 07:00 15:00 23:00 Intake Total 878 ml 919 ml 424 ml 570 ml Output Total 500 ml 1600 ml 400 ml 500 ml Balance 378 ml -681 ml 24 ml 70 ml IV Total 524 ml 412 ml 75 ml 100 ml Tube Feeding 354 ml 507 ml 349 ml 350 ml Other 120 ml Output Urine Total 500 ml 1600 ml 400 ml 500 ml # Bowel Movements 1 0 1 1 Result Diagram: 09/27/1633709/27/16337 Objective Remarks GENERAL: Elderly male, on Vent SKIN: Warm and dry. HEAD: Normocephalic. EYES: No scleral icterus. No injection or drainage. NECK: Supple, trachea midline. No JVD or lymphadenopathy. Has trach CARDIOVASCULAR: Regular rate and rhythm without murmurs, gallops, or rubs. RESPIRATORY: Breath sounds equal bilaterally. No accessory muscle use. GASTROINTESTINAL: Abdomen soft, non-tender, nondistended. PEG tube in place MUSCULOSKELETAL: No cyanosis, or edema. BACK: Nontender without obvious deformity. No CVA tenderness. A/P Assessment and Plan VDRF Trach Tracheal stent Sz disorder S/P AAA repair S/P cardiac arrest PLAN: Rest with ACV Trach care Aerosol nebs TF Daily CPAP trial TF Daron Rock MD September 27, 2016 20:02
--- NOTE | 2016-09-27 20:31 | HHI.CCPN ---
Subjective Remarks/Hospital Course 09/22: Patient was transferred from [facility] to [facility] in [place] on July 01, 2016. He was admitted to our hospital on June 30, 2016. Patient is a trach dependent and PEG dependent patient since about 2010 when we first saw him at our hospital. In June of this year, he presented to our emergency room and was admitted to the development lead service. He was having blood clots through his PEG tube as well with respiratory failure requiring ventilator support. He has had history of tracheomalacia with tracheal stent placed in [facility] about 2 years prior. Subsequent workup here in June revealed his tracheal stent 80%occlusion with debris versus mass. Therapeutic bronchoscopy was done here which shows near complete occlusion of tracheal stent with organized clots and mucous. He was managed overnight by development lead team and was transferred to [facility] because of this tracheal stent occlusion with hemoptysis. Patient was managed at [facility] for this tracheal stent occlusion and underwent multiple bronchoscopies and tracheostomy revision and tracheal stent revision with new stent placement. He also had cardiac arrest while in hospital on August 13, 2016 and August 14, 2016. He required ventilator support during the hospitalization and currently on FiO2 of 28% through trach. He was managed there for pseudomonas pneumonia with colonization and MRSA from bronchial lavage. 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 He was also managed for massive distention of the colon suspicious for volvulus versus ileus. He was finally stabilized and managed on PCU service at present and transferred back to [facility] on 09/20/16 when he was admitted by the hospitalist service to the floor on [facility]. This morning patient was noted to be lethargic and an ABG revealed PCO2 in the 80s. He was transferred to [facility] with critical care consult being requested by Dr. Chen. He was placed on mechanical ventilation. I evaluated the patient shortly following his arrival. History was obtained by reviewing records and discussion with Dr. Chen. 09/23: Remains encephalopathic on mechanical ventilation via tracheostomy. Tube feeds Resumed yesterday and tolerating well currently. 09/24: Remains encephalopathic on mechanical ventilation via tracheostomy. Blood pressure running high. Increased Coreg and started lisinopril. 09/25: Remains encephalopathic, on mechanical ventilation via tracheostomy. Tolerating tube feeds. Continue C Pap trials daily. 09/26: Remains encephalopathic, on mechanical ventilation via tracheostomy. Having apneic episodes with C Pap trials today. Tolerating tube feeds. 09/27: Remains encephalopathic, and mechanical ventilation via tracheostomy. C Pap/T piece trials as tolerated Objective Vital Signs Date Time Temp Pulse Resp B/P Pulse Ox O2 Delivery O2 Flow Rate FiO2 09/27/16 19:28 100 35 09/27/16 18:00 68 09/27/16 16:00 98.5 20 121/66 09/27/16 16:00 Mechanical Ventilator 09/27/16 11:46 5.00 Intake and Output 09/26/16 09/26/16 09/27/16 08:00 16:00 00:00 Intake Total 878 ml 919 ml Output Total 500 ml 1600 ml Balance 378 ml -681 ml Result Diagram: 09/27/16 0338 09/27/168 Imaging 09/22 CXR (portable) - personally reviewed: Tracheostomy in place, tracheal stent noted, good aeration bilateral lung casanova with prominent interstitial markings Objective Remarks Physical Exam GENERAL: This is a gentleman, noncommunicative, trach dependent, PEG dependent SKIN: Sacral decubiti with wound packing and discharge HEAD: Atraumatic. Normocephalic. EYES: Left-sided ptosis No scleral icterus. No injection or drainage. ENT: Nose without bleeding, purulent drainage or septal hematoma Airway patent. Tracheostomy in place NECK: Trachea midline. No JVD CARDIOVASCULAR: Regular rate and rhythm without murmurs, gallops, or rubs. RESPIRATORY: On mechanical ventilation via tracheostomy, Bilaterally decreased air entry GASTROINTESTINAL: Abdomen soft, non-tender, nondistended.No guarding. No superpubic tenderness. MUSCULOSKELETAL: Bilateral lower extremity contracture. Atrophic. No calf asymmetry. NEUROLOGICAL: Spontaneously opens his eyes. However not really tracking. Does not follow any commands. Bilateral upper and lower extremity contractures with muscle atrophy. A/P Assessment and Plan Impression: Acute respiratory failure requiring mechanical ventilation Acute respiratory acidosis Hypotension : Resolved with fluid bolus. A/P Problem List: (1) [id number] respiratory failure ICD Code: J96.20 Status: Acute Plan: Patient with acute episode of hypoxemia into the 80's, suspect aspiration. Recieved Solumedrol 125 mg IV stat and 40 mg Iv Lasix prior to transfer to ICU. ABG shows respiratory acidosis with pH of 7.28, PCO2 80, PO2 of 77 and oxygen saturations of 90. Continue mechanical ventilation. Vent bundle, bronchodilators as needed. Pulmonary following. Daily C Pap trials (2) Hyperkalemia ICD Code: E87.5 Status: Acute Plan: Potassium elevated at 6.0 Given D50 and Regular insulin IV. 2 grams of IV calcium chloride and 40 mg of IV lasix on 09/22 Follow BMP (3) Seizure disorder ICD Code: G40.909 Status: Chronic Plan: EEG done at [facility] showing epileptic discharges persistently. Negative MRI studies. Continue current anticonvulsants. Patient currently on Keppra 1500 mg via PEG twice a day. 09/22 daughter refusing Depakote and Keppra. Reviewed neurology consult and EEG. (4) Tracheostomy in place ICD Code: Z93.0 Status: Chronic Plan: Continue with trach care, suctioning as needed, aspiration precautions. Advance tube feeds (Jevity) as tolerated. Check residuals. Continue Reglan. (5) S/P percutaneous endoscopic gastrostomy (PEG) tube placement ICD Code: Z93.1 Status: Chronic Plan: Patient with high residuals on 09/21 - started on Reglan IV scheduled. Diet consulted. (6) H/O cardiac arrest ICD Code: Z86.74 Status: Chronic Plan: Patient has history of cardiac arrest on August 13 on 08/14/16. Continue to monitor on telemetry. Palliative care consulted to help address goals of care and establish a clear CODE STATUS. At [facility] the patient had a limited DO NOT RESUSCITATE. 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 (8) Dementia ICD Code: F03.90 Status: Chronic Plan: Patient currently on Cogentin, Ativan as needed for anxiety. (9) Schizophrenia ICD Code: F20.9 Status: Chronic Plan: Not on any medications at this point. (10) Diabetes mellitus type 2, controlled ICD Code: E11.9 Status: Chronic Plan: Diet controlled. Blood sugar seems to be stable. Not on sliding scale. (11) CAD (coronary artery disease) ICD Code: I25.10 Status: Chronic Plan: Continue aspirin 81 mg. (12) Encephalopathy acute ICD Code: G93.40 Status: Acute Plan: Unclear what baseline is since patient had 2 cardiac arrests over at [facility]. Patient is more lethargic due to Co2 retention and anoxic encephalopathy. ABG Shows a pH of 7.28, PCO2 of 80, PO2 77. Placed on mechanical ventilation . Prophylaxis GI prophylaxis: Continue PPI. DVT plexus: SCDs, heparin subcutaneously. Access: PICC line. Discussed with palliative care team. Patient remains full CODE STATUS at this time. Consider LTAC placement for vent weaning. Rowdy Jacome MD September 27, 2016 20:31
[2016-09-28] VITALS (32 sets, daily range): BP systolic 73–176; BP diastolic 47–91; PULSE 64–77; RESP 11–41; TEMP 98.2–99; O2SAT 84–100
[2016-09-28 04:46] LABS: ALKALINE PHOSPHATASE 102 U/L (45-117); ALT (GPT) 16 U/L (12-78); ANION GAP 7 MEQ/L (5-15); AST (GOT) 27 U/L (15-37); BICARBONATE 28.9 MEQ/L (21.0-32.0); BLOOD UREA NITROGEN 19 MG/DL (7-18); CHLORIDE 101 MEQ/L (98-107); GLOMERULAR FILTRATION RATE 115 ML/MIN (>89); POTASSIUM 4.2 MEQ/L (3.5-5.1); SODIUM (NA) 137 MEQ/L (136-145); TOTAL BILIRUBIN ADULT 0.3 MG/DL (0.2-1.0)
[2016-09-28 05:58] LABS: AUTOMATED NEUTROPHIL # 2.8 TH/MM3 (1.8-7.7); BASOPHIL % 0.6 % (0.0-2.0); EOSINOPHIL # 0.5 TH/MM3 (0-0.4); EOSINOPHIL % 8.9 % (0.0-4.0); HEMATOCRIT 23.4 % (39.0-51.0); HEMO FLAGS DIFF FINAL; LYMPH % 23.7 % (9.0-44.0); LYMPHOCYTE # 1.3 TH/MM3 (1.0-4.8); MEAN CELL VOLUME 100.9 FL (80.0-100.0); MEAN CORPUSCULAR HEMOGLOBIN 33.3 PG (27.0-34.0); MONO % 16.6 % (0.0-8.0); NEUT % 50.2 % (16.0-70.0); PLATELET COUNT 198 TH/MM3 (150-450); RED BLOOD COUNT 2.32 MIL/MM3 (4.50-5.90); RED CELL DISTRIBUTION WIDTH 22.7 % (11.6-17.2); WHITE BLOOD COUNT 5.6 TH/MM3 (4.0-11.0)
[2016-09-28] MEDS: HEPARIN SODIUM - SQ 10,000 UNITS/ML VIAL SQ SCH ×3 (06:22→21:44)
[2016-09-28] MEDS: VALPROIC ACID SYRUP 250 MG/5 ML UDC PEG SCH ×3 (06:22→21:45)
[2016-09-28] MEDS: METOCLOPRAMIDE HCL 10 MG/2 ML VIAL IV PUSH SCH ×3 (06:23→21:44)
[2016-09-28] MEDS: RESP: TOBRAMYCIN SULFATE 300 MG/5 ML NEB NEB SCH ×2 (07:44→20:36)
[2016-09-28] MEDS: LISINOPRIL 10 MG TAB PEG SCH (09:00)
[2016-09-28] MEDS: PANTOPRAZOLE SODIUM 40 MG VIAL IV PUSH SCH (09:00)
[2016-09-28] MEDS: levETIRAcetam 500 MG/5 ML UDC PEG SCH ×2 (09:00→21:44)
[2016-09-28] MEDS: BENZTROPINE MESYLATE 1 MG TAB PEG SCH ×2 (09:00→21:45)
[2016-09-28] MEDS: GLYCOPYRROLATE 1 MG TAB PEG SCH ×3 (09:00→18:00)
[2016-09-28] MEDS: SODIUM CHLORIDE 0.9% FLUSH 10 ML FLUSH IV FLUSH SCH ×3 (09:00→21:00)
[2016-09-28] MEDS: CARVEDILOL 12.5 MG TAB PEG SCH ×2 (09:00→21:45)
[2016-09-28] MEDS: ASPIRIN 81 MG CHEW TAB PEG SCH (09:00)
[2016-09-28] MEDS ORDERED: SODIUM CHLORID 0.9% 500 ML INJ 500 ML IV ONE (10:45)
[2016-09-28] MEDS: SODIUM CHLOR 0.9% 1000 ML INJ 1,000 ML IV SCH (11:00)
[2016-09-28] MEDS: TAMSULOSIN HCL 0.4 MG CAP PO SCH (16:00)
--- NOTE | 2016-09-28 16:34 | HHI.PR ---
Subjective Remarks YOAA male multiple co morbid condition VDRF,Trach, tracheal stent Came back from [facility] On ACV no fever Objective Vital Signs Vital Signs Date Time Temp Pulse Resp B/P Pulse Ox O2 Delivery O2 Flow Rate FiO2 09/28/16 14:00 71 09/28/16 13:57 93 35 09/28/16 13:30 69 18 85/54 97 09/28/16 13:00 77 41 108/74 100 09/28/16 12:30 72 18 126/69 99 09/28/16 12:00 99.0 76 11 128/73 99 09/28/16 12:00 77 09/28/16 12:00 98 Mechanical Ventilator 09/28/16 12:00 72 09/28/16 12:00 35 09/28/16 11:00 75 09/28/16 10:40 100 35 09/28/16 09:30 70 30 83/52 100 09/28/16 09:00 74 30 123/67 100 09/28/16 08:32 70 24 117/63 100 09/28/16 08:03 69 32 74/47 100 09/28/16 08:02 68 31 73/47 100 09/28/16 08:00 74 09/28/16 08:00 100 Mechanical Ventilator 09/28/16 08:00 35 09/28/16 08:00 98.7 69 34 75/47 100 09/28/16 07:44 100 35 09/28/16 06:00 74 09/28/16 04:00 68 09/28/16 04:00 100 Mechanical Ventilator 09/28/16 04:00 35 09/28/16 04:00 98.8 68 18 135/72 100 09/28/16 02:00 64 09/28/16 00:35 100 35 09/28/16 00:00 35 09/28/16 00:00 68 09/28/16 00:00 98.2 68 18 120/67 100 09/28/16 00:00 100 Mechanical Ventilator 09/27/16 22:00 69 09/27/16 20:00 100 Mechanical Ventilator 09/27/16 20:00 65 09/27/16 20:00 35 09/27/16 20:00 98.5 65 18 129/68 100 09/27/16 19:28 100 35 09/27/16 18:00 68 I/O 09/27/16 09/27/16 09/27/16 09/28/16 09/28/16 09/28/16 07:00 15:00 23:00 07:00 15:00 23:00 Intake Total 424 ml 570 ml 809 ml 1730 ml Output Total 400 ml 500 ml 950 ml 1050 ml Balance 24 ml 70 ml -141 ml 680 ml IV Total 75 ml 100 ml 121 ml 1125 ml Tube Feeding 349 ml 350 ml 688 ml 455 ml Other 120 ml 150 ml Output Urine Total 400 ml 500 ml 950 ml 1050 ml # Bowel Movements 1 1 0 1 Result Diagram: 09/28/16 0325 09/28/16 032 Objective Remarks GENERAL: Elderly male, on Vent SKIN: Warm and dry. HEAD: Normocephalic. EYES: No scleral icterus. No injection or drainage. NECK: Supple, trachea midline. No JVD or lymphadenopathy. Has trach CARDIOVASCULAR: Regular rate and rhythm without murmurs, gallops, or rubs. RESPIRATORY: Breath sounds equal bilaterally. No accessory muscle use. GASTROINTESTINAL: Abdomen soft, non-tender, nondistended. PEG tube in place MUSCULOSKELETAL: No cyanosis, or edema. BACK: Nontender without obvious deformity. No CVA tenderness. A/P Assessment and Plan VDRF Trach Tracheal stent Sz disorder S/P AAA repair S/P cardiac arrest PLAN: Rest with ACV Trach care Aerosol nebs TF Daily CPAP trial Daron Rock MD September 28, 2016 16:34
--- NOTE | 2016-09-28 17:24 | HHI.CCPN ---
Subjective Remarks/Hospital Course 09/22: Patient was transferred from [facility] to [facility] in [place] on July 01, 2016. He was admitted to our hospital on June 30, 2016. Patient is a trach dependent and PEG dependent patient since about 2010 when we first saw him at our hospital. In June of this year, he presented to our emergency room and was admitted to the food prep worker service. He was having blood clots through his PEG tube as well with respiratory failure requiring ventilator support. He has had history of tracheomalacia with tracheal stent placed in [facility] about 2 years prior. Subsequent workup here in June revealed his tracheal stent 80%occlusion with debris versus mass. Therapeutic bronchoscopy was done here which shows near complete occlusion of tracheal stent with organized clots and mucous. He was managed overnight by food prep worker team and was transferred to [facility] because of this tracheal stent occlusion with hemoptysis. Patient was managed at [facility] for this tracheal stent occlusion and underwent multiple bronchoscopies and tracheostomy revision and tracheal stent revision with new stent placement. He also had cardiac arrest while in hospital on August 13, 2016 and August 14, 2016. He required ventilator support during the hospitalization and currently on FiO2 of 28% through trach. He was managed there for pseudomonas pneumonia with colonization and MRSA from bronchial lavage. 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 He was also managed for massive distention of the colon suspicious for volvulus versus ileus. He was finally stabilized and managed on PCU service at present and transferred back to [facility] on 09/20/16 when he was admitted by the hospitalist service to the floor on [facility]. This morning patient was noted to be lethargic and an ABG revealed PCO2 in the 80s. He was transferred to [facility] with critical care consult being requested by Dr. Chen. He was placed on mechanical ventilation. I evaluated the patient shortly following his arrival. History was obtained by reviewing records and discussion with Dr. Chen. 09/23: Remains encephalopathic on mechanical ventilation via tracheostomy. Tube feeds Resumed yesterday and tolerating well currently. 09/24: Remains encephalopathic on mechanical ventilation via tracheostomy. Blood pressure running high. Increased Coreg and started lisinopril. 09/25: Remains encephalopathic, on mechanical ventilation via tracheostomy. Tolerating tube feeds. Continue C Pap trials daily. 09/26: Remains encephalopathic, on mechanical ventilation via tracheostomy. Having apneic episodes with C Pap trials today. Tolerating tube feeds. 09/27: Remains encephalopathic, and mechanical ventilation via tracheostomy. C Pap/T piece trials as tolerated. 09/28: Continues to remain encephalopathic. Unsuccessful CPAP trials, tolerating tube feeds minimal residuals. Objective Vital Signs Date Time Temp Pulse Resp B/P Pulse Ox O2 Delivery O2 Flow Rate FiO2 09/28/16 14:00 71 09/28/16 13:57 93 35 09/28/16 13:30 18 85/54 09/28/16 12:00 99.0 09/28/16 12:00 Mechanical Ventilator 09/27/16 11:46 5.00 Intake and Output 09/27/16 09/27/16 09/28/16 08:00 16:00 00:00 Intake Total 424 ml 570 ml Output Total 400 ml 500 ml Balance 24 ml 70 ml Result Diagram: 09/28/16 0325 09/28/16 0325 Imaging 09/22 CXR (portable) - personally reviewed: Tracheostomy in place, tracheal stent noted, good aeration bilateral lung casanova with prominent interstitial markings Objective Remarks Physical Exam GENERAL: This is a gentleman, noncommunicative, trach dependent, PEG dependent SKIN: Sacral decubiti with wound packing and discharge HEAD: Atraumatic. Normocephalic. EYES: Left-sided ptosis No scleral icterus. No injection or drainage. ENT: Nose without bleeding, purulent drainage or septal hematoma Airway patent. Tracheostomy in place NECK: Trachea midline. No JVD CARDIOVASCULAR: Regular rate and rhythm without murmurs, gallops, or rubs. RESPIRATORY: On mechanical ventilation via tracheostomy, Bilaterally decreased air entry GASTROINTESTINAL: Abdomen soft, non-tender, nondistended.No guarding. No superpubic tenderness. MUSCULOSKELETAL: Bilateral lower extremity contracture. Atrophic. No calf asymmetry. NEUROLOGICAL: Spontaneously opens his eyes. However not really tracking. Does not follow any commands. Bilateral upper and lower extremity contractures with muscle atrophy. A/P Assessment and Plan Impression: Acute respiratory failure requiring mechanical ventilation Acute respiratory acidosis Hypotension : Resolved with fluid bolus. A/P Problem List: (1) [id number]-[id number] respiratory failure ICD Code: J96.20 Status: Acute Plan: Patient with acute episode of hypoxemia into the 80's, suspect aspiration. Received Solumedrol 125 mg IV stat and 40 mg Iv Lasix prior to transfer to ICU. ABG shows respiratory acidosis with pH of 7.28, PCO2 80, PO2 of 77 and oxygen saturations of 90. Continue mechanical ventilation. Vent bundle, bronchodilators as needed. Pulmonary following. Continue daily C PAP trials (2) Hyperkalemia ICD Code: E87.5 Status: Acute Plan: Potassium elevated at 6.0 Given D50 and Regular insulin IV. 2 grams of IV calcium chloride and 40 mg of IV lasix on 09/22 Monitor BMP (3) Seizure disorder ICD Code: G40.909 Status: Chronic Plan: EEG done at [facility] showing epileptic discharges persistently. Negative MRI studies. Continue current anticonvulsants. Patient currently on Keppra 1500 mg via PEG twice a day. 09/22 daughter refusing Depakote and Keppra. Reviewed neurology consult and EEG. (4) Tracheostomy in place ICD Code: Z93.0 Status: Chronic Plan: Continue with trach care, suctioning as needed, aspiration precautions. Advance tube feeds (Jevity) as tolerated. Check residuals. Continue Reglan. (5) S/P percutaneous endoscopic gastrostomy (PEG) tube placement ICD Code: Z93.1 Status: Chronic Plan: Patient with high residuals on 09/21 - started on Reglan IV scheduled. Diet consulted. (6) H/O cardiac arrest ICD Code: Z86.74 Status: Chronic Plan: Patient has history of cardiac arrest on August 13 on 08/14/16. Continue to monitor on telemetry. Palliative care consulted to help address goals of care and establish a clear CODE STATUS. At [facility] the patient had a limited DO NOT RESUSCITATE. 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 (8) Dementia ICD Code: F03.90 Status: Chronic Plan: Patient currently on Cogentin, Ativan as needed for anxiety. (9) Schizophrenia ICD Code: F20.9 Status: Chronic Plan: Not on any medications at this point. (10) Diabetes mellitus type 2, controlled ICD Code: E11.9 Status: Chronic Plan: Diet controlled. Blood sugar seems to be stable. Not on sliding scale. (11) CAD (coronary artery disease) ICD Code: I25.10 Status: Chronic Plan: Continue aspirin 81 mg. (12) Encephalopathy acute ICD Code: G93.40 Status: Acute Plan: Unclear what baseline is since patient had 2 cardiac arrests over at [facility]. Patient is more lethargic due to Co2 retention and anoxic encephalopathy. ABG Shows a pH of 7.28, PCO2 of 80, PO2 77. Placed on mechanical ventilation . Prophylaxis GI prophylaxis: Continue PPI. DVT plexus: SCDs, heparin subcutaneously. Access: PICC line. Patient remains full CODE STATUS at this time. Case management - Consider LTAC placement for vent weaning. Level 3 Physician Ashli Vasquez MD September 28, 2016 17:24
--- NOTE | 2016-09-28 18:13 | HHI.PR ---
Review/Management Diagnosis severe encepjhalopathy with PLEDS on EEG. No clinical seizures Plan recheck EEG Diagnosis/Plan: Subjective Subjective Comments No acute events reported No sz. Active Medications Current Medications Medications (Trade) Dose Ordered Sig/Harry Route Start Time Stop Time Status Last Admin (NS Flush) 2 ml UNSCH PRN IV FLUSH 09/20/16 22:30 (NS Flush) 2 ml BID IV FLUSH 09/21/16 09:00 09/27/16 21:00 (Narcan Inj) 0.4 mg UNSCH PRN IV 09/20/16 22:30 (Tylenol) 650 mg Q6HR PRN PEG 09/21/16 01:30 09/26/16 17:50 (Aspirin Chew) 81 mg DAILY PEG 09/21/16 09:00 09/28/16 09:00 (Dulcolax Supp) 10 mg DAILY PRN RECTAL 09/21/16 01:30 (Ativan) 2 mg Q8HR PRN PEG 09/21/16 01:30 (Zofran Inj) 4 mg Q4HR PRN IV PUSH 09/21/16 01:30 (D50w (Vial) Inj) 25 ml UNSCH PRN IV PUSH 09/21/16 01:30 (Glucagon Inj) 1 mg UNSCH PRN OTHER 09/21/16 01:30 (Keppra Liq) 1,500 mg BID PEG 09/21/16 10:00 09/28/16 09:00 (Protonix Inj) 40 mg DAILY IV PUSH 09/21/16 10:01 09/28/16 09:00 (Cogentin) 1 mg BID PEG 09/21/16 21:00 09/28/16 09:00 (Robinul) 1 mg TID PEG 09/21/16 13:00 09/28/16 13:00 (Depakene Liq) 1,500 mg Q8HR PEG 09/21/16 14:00 09/28/16 14:00 (Heparin Inj) 5,000 units Q8HR SQ 09/21/16 14:00 09/28/16 14:00 (Reglan Inj) 5 mg Q8HR IV PUSH 09/21/16 14:00 09/28/16 14:00 (NS Flush) See Protocol DAILY IV FLUSH 09/23/16 09:00 09/27/16 09:00 (NS Flush) See Protocol UNSCH PRN IV FLUSH 09/22/16 13:45 (Heparin Central Flush) See Protocol DAILY IV FLUSH 09/23/16 09:00 09/28/16 09:00 (Heparin Central Flush) See Protocol UNSCH PRN IV FLUSH 09/22/16 13:45 Sodium Chloride UNSCH PRN IV FLUSH 09/22/16 13:45 (NS 1000 ml Inj) 1,000 ml @ 0 mls/hr Q0M IV 09/22/16 17:30 09/26/16 08:14 (Trandate Inj) 10 mg Q4H PRN IV PUSH 09/23/16 14:00 09/26/16 17:13 (Coreg) 12.5 mg BID PEG 09/24/16 15:00 09/27/16 22:02 Lisinopril 10 mg 10 mg DAILY PEG 09/24/16 14:45 09/27/16 09:10 (NS 1000 ml Inj) 1,000 ml @ 75 mls/hr [id number] IV 09/28/16 11:00 09/28/16 11:00 Allergies Allergies Coded Allergies Penicillin (Verified Allergy, Unknown, 06/30/16) *MDRO Multi-Drug Resistant Organism (Verified Adverse Reaction, Unknown, MRSA , 07/03/16) Codeine (Verified Adverse Reaction, Unknown, Anaphylaxis, 06/30/16) Exam I&O / VS 09/27/16 09/27/16 09/28/16 15:00 23:00 07:00 Intake Total 570 ml 809 ml Output Total 500 ml 950 ml Balance 70 ml -141 ml IV Total 100 ml 121 ml Tube Feeding 350 ml 688 ml Other 120 ml Output Urine Total 500 ml 950 ml # Bowel Movements 1 0 Vital Signs Date Time Temp Pulse Resp B/P Pulse Ox O2 Delivery O2 Flow Rate FiO2 09/28/16 14:00 71 09/28/16 13:57 93 35 09/28/16 13:30 69 18 85/54 97 09/28/16 13:00 77 41 108/74 100 09/28/16 12:30 72 18 126/69 99 09/28/16 12:00 99.0 76 11 128/73 99 09/28/16 12:00 77 09/28/16 12:00 98 Mechanical Ventilator 09/28/16 12:00 72 09/28/16 12:00 35 09/28/16 11:00 75 09/28/16 10:40 100 35 09/28/16 09:30 70 30 83/52 100 09/28/16 09:00 74 30 123/67 100 09/28/16 08:32 70 24 117/63 100 09/28/16 08:03 69 32 74/47 100 09/28/16 08:02 68 31 73/47 100 09/28/16 08:00 74 09/28/16 08:00 100 Mechanical Ventilator 09/28/16 08:00 35 09/28/16 08:00 98.7 69 34 75/47 100 09/28/16 07:44 100 35 09/28/16 06:00 74 09/28/16 04:00 68 09/28/16 04:00 100 Mechanical Ventilator 09/28/16 04:00 35 09/28/16 04:00 98.8 68 18 135/72 100 09/28/16 02:00 64 09/28/16 00:35 100 35 09/28/16 00:00 35 09/28/16 00:00 68 09/28/16 00:00 98.2 68 18 120/67 100 09/28/16 00:00 100 Mechanical Ventilator 09/27/16 22:00 69 09/27/16 20:00 100 Mechanical Ventilator 09/27/16 20:00 65 09/27/16 20:00 35 09/27/16 20:00 98.5 65 18 129/68 100 09/27/16 19:28 100 35 Exam Comments nonresponsive PERRL Motor-no spontaneous limb movement. No tonic clonic activity Objective Micro and Labs Laboratory Tests Test 09/28/16 03:25 White Blood Count 5.6 Red Blood Count 2.32 Hemoglobin 7.7 Hematocrit 23.4 Mean Corpuscular Volume 100.9 Mean Corpuscular Hemoglobin 33.3 Mean Corpuscular Hemoglobin 33.0 Concent Red Cell Distribution Width 22.7 Platelet Count 198 Mean Platelet Volume 9.3 Neutrophils (%) (Auto) 50.2 Lymphocytes (%) (Auto) 23.7 Monocytes (%) (Auto) 16.6 Eosinophils (%) (Auto) 8.9 Basophils (%) (Auto) 0.6 Neutrophils # (Auto) 2.8 Lymphocytes # (Auto) 1.3 Monocytes # (Auto) 0.9 Eosinophils # (Auto) 0.5 Basophils # (Auto) 0.0 CBC Comment DIFF FINAL Differential Comment Hematology Comments Sodium Level 137 Potassium Level 4.2 Chloride Level 101 Carbon Dioxide Level 28.9 Anion Gap 7 Blood Urea Nitrogen 19 Creatinine 0.79 Estimat Glomerular Filtration 115 Rate Random Glucose 111 Calcium Level 8.6 Total Bilirubin 0.3 Aspartate Amino Transf 27 (AST/SGOT) Alanine Aminotransferase 16 (ALT/SGPT) Alkaline Phosphatase 102 Total Protein 7.9 Albumin 1.9 James Prasad PhD September 28, 2016 18:13
[2016-09-28] MEDS: RESP: ALBUTEROL 2.5 MG/IPRATROPIUM 0.5 MG NEB (PRN) NEB (20:02)
[2016-09-29] VITALS (27 sets, daily range): BP systolic 84–179; BP diastolic 47–101; PULSE 47–78; RESP 16–25; TEMP 96.8–99; O2SAT 86–100
--- NOTE | 2016-09-29 04:56 | RADRPT ---
EXAM DATE/TIME: 09/29/2016 03:41 [place] COMPARISON: CHEST SINGLE AP, September 22, 2016, 13:23. INDICATIONS : Evalaute for respiratory disease. MEDICAL HISTORY : Carcinoma, prostatic. Chronic obstructive pulmonary disease. Gastro esophageal reflux disease. Diabetes mellitus type II. SURGICAL HISTORY : Umbilical hernia repair. ENCOUNTER: Subsequent ACUITY: 1 week PAIN SCORE: Non-responsive. LOCATION: chest FINDINGS: A single view of the chest demonstrates cardiomegaly with bilateral perihilar airspace disease, great er on the left. Tracheostomy tube unchanged. Right-sided PICC line again seen with tip in the SVC. O sseous structures are intact. CONCLUSION: Cardiomegaly with bilateral perihilar edema, greater on the left. Zach Herzog MD on September 29, 2016 at 4:52 Board Certified Radiologist. This report was verified electronically.
[2016-09-29] MEDS: METOCLOPRAMIDE HCL 10 MG/2 ML VIAL IV PUSH SCH ×3 (06:25→21:56)
[2016-09-29] MEDS: VALPROIC ACID SYRUP 250 MG/5 ML UDC PEG SCH ×3 (06:26→21:57)
[2016-09-29] MEDS: HEPARIN SODIUM - SQ 10,000 UNITS/ML VIAL SQ SCH ×3 (06:26→21:57)
[2016-09-29] MEDS: SODIUM CHLOR 0.9% 1000 ML INJ 1,000 ML IV SCH ×2 (07:00→21:58)
[2016-09-29] MEDS: RESP: ALBUTEROL 2.5 MG/IPRATROPIUM 0.5 MG NEB (PRN) NEB ×2 (08:58→20:32)
[2016-09-29] MEDS: GLYCOPYRROLATE 1 MG TAB PEG SCH ×3 (09:00→15:26)
[2016-09-29] MEDS: BENZTROPINE MESYLATE 1 MG TAB PEG SCH ×2 (09:00→21:57)
[2016-09-29] MEDS: SODIUM CHLORIDE 0.9% FLUSH 10 ML FLUSH IV FLUSH SCH ×3 (09:00→21:58)
[2016-09-29] MEDS: CARVEDILOL 12.5 MG TAB PEG SCH ×2 (09:00→21:57)
[2016-09-29] MEDS: levETIRAcetam 500 MG/5 ML UDC PEG SCH ×2 (09:00→21:56)
[2016-09-29] MEDS: ASPIRIN 81 MG CHEW TAB PEG SCH (09:00)
[2016-09-29] MEDS: LISINOPRIL 10 MG TAB PEG SCH (09:00)
[2016-09-29] MEDS: PANTOPRAZOLE SODIUM 40 MG VIAL IV PUSH SCH (09:00)
[2016-09-29] MEDS: RESP: TOBRAMYCIN SULFATE 300 MG/5 ML NEB NEB SCH ×2 (09:19→20:33)
[2016-09-29 10:13] LABS: BICARBONATE 28.6 MEQ/L (21.0-32.0); MAGNESIUM 2.2 MG/DL (1.5-2.5); POTASSIUM 4.3 MEQ/L (3.5-5.1)
[2016-09-29 10:30] LABS: HEMATOCRIT 24.7 % (39.0-51.0); MEAN CELL VOLUME 101.3 FL (80.0-100.0); MEAN CORPUSCULAR HGB CONC 32.6 % (32.0-36.0); PLATELET COUNT 210 TH/MM3 (150-450); RED BLOOD COUNT 2.43 MIL/MM3 (4.50-5.90); RED CELL DISTRIBUTION WIDTH 22.7 % (11.6-17.2); REVIEW FLAG FINAL; WHITE BLOOD COUNT 7.7 TH/MM3 (4.0-11.0)
--- NOTE | 2016-09-29 14:11 | HHI.CCPN ---
Subjective Remarks/Hospital Course 09/22: Patient was transferred from [facility] to [facility] in [place] on July 01, 2016. He was admitted to our hospital on June 30, 2016. Patient is a trach dependent and PEG dependent patient since about 2010 when we first saw him at our hospital. In June of this year, he presented to our emergency room and was admitted to the welding machine feeder service. He was having blood clots through his PEG tube as well with respiratory failure requiring ventilator support. He has had history of tracheomalacia with tracheal stent placed in [facility] about 2 years prior. Subsequent workup here in June revealed his tracheal stent 80%occlusion with debris versus mass. Therapeutic bronchoscopy was done here which shows near complete occlusion of tracheal stent with organized clots and mucous. He was managed overnight by welding machine feeder team and was transferred to [facility] because of this tracheal stent occlusion with hemoptysis. Patient was managed at [facility] for this tracheal stent occlusion and underwent multiple bronchoscopies and tracheostomy revision and tracheal stent revision with new stent placement. He also had cardiac arrest while in hospital on August 13, 2016 and August 14, 2016. He required ventilator support during the hospitalization and currently on FiO2 of 28% through trach. He was managed there for pseudomonas pneumonia with colonization and MRSA from bronchial lavage. 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 He was also managed for massive distention of the colon suspicious for volvulus versus ileus. He was finally stabilized and managed on PCU service at present and transferred back to [facility] on 09/20/16 when he was admitted by the hospitalist service to the floor on [facility]. This morning patient was noted to be lethargic and an ABG revealed PCO2 in the 80s. He was transferred to [facility] with critical care consult being requested by Dr. Chen. He was placed on mechanical ventilation. I evaluated the patient shortly following his arrival. History was obtained by reviewing records and discussion with Dr. Chen. 09/23: Remains encephalopathic on mechanical ventilation via tracheostomy. Tube feeds Resumed yesterday and tolerating well currently. 09/24: Remains encephalopathic on mechanical ventilation via tracheostomy. Blood pressure running high. Increased Coreg and started lisinopril. 09/25: Remains encephalopathic, on mechanical ventilation via tracheostomy. Tolerating tube feeds. Continue C Pap trials daily. 09/26: Remains encephalopathic, on mechanical ventilation via tracheostomy. Having apneic episodes with C Pap trials today. Tolerating tube feeds. 09/27: Remains encephalopathic, and mechanical ventilation via tracheostomy. C Pap/T piece trials as tolerated. 09/28: Continues to remain encephalopathic. Unsuccessful CPAP trials, tolerating tube feeds minimal residuals. 09/29: Tmax 98.4. No change in neurological status. CPAP trials continued but unsuccessful. Objective Vital Signs Date Time Temp Pulse Resp B/P Pulse Ox O2 Delivery O2 Flow Rate FiO2 09/29/16 09:00 100 35 09/29/16 08:00 Mechanical Ventilator 09/29/16 08:00 64 09/29/16 04:00 99.0 20 138/77 09/27/16 11:46 5.00 Intake and Output 09/28/16 09/28/16 09/29/16 08:00 16:00 00:00 Intake Total 809 ml 1730 ml 2168 ml Output Total 950 ml 1050 ml 250 ml Balance -141 ml 680 ml 1918 ml Result Diagram: 09/29/1615 09/29/16814 Imaging 09/22 CXR (portable) - personally reviewed: Tracheostomy in place, tracheal stent noted, good aeration bilateral lung casanova with prominent interstitial markings Objective Remarks Physical Exam GENERAL: This is a gentleman, noncommunicative, trach dependent, PEG dependent SKIN: Sacral decubiti with wound packing and discharge HEAD: Atraumatic. Normocephalic. EYES: Left-sided ptosis No scleral icterus. No injection or drainage. ENT: Nose without bleeding, purulent drainage or septal hematoma Airway patent. Tracheostomy in place NECK: Trachea midline. No JVD CARDIOVASCULAR: Regular rate and rhythm without murmurs, gallops, or rubs. RESPIRATORY: On mechanical ventilation via tracheostomy, Bilaterally decreased air entry GASTROINTESTINAL: Abdomen soft, non-tender, nondistended.No guarding. No superpubic tenderness. MUSCULOSKELETAL: Bilateral lower extremity contracture. Atrophic. No calf asymmetry. NEUROLOGICAL: Spontaneously opens his eyes. However not really tracking. Does not follow any commands. Bilateral upper and lower extremity contractures with muscle atrophy. Urinary Catheter: Yes Person insert reason: Measure Accurate Output A/P Assessment and Plan Impression: Acute respiratory failure requiring mechanical ventilation Acute respiratory acidosis Hypotension : Resolved with fluid bolus. A/P Problem List: (1) [id number] respiratory failure ICD Code: J96.20 Status: Acute Plan: Patient with acute episode of hypoxemia into the 80's, suspect aspiration. Received Solumedrol 125 mg IV stat and 40 mg IV Lasix prior to transfer to ICU. ABG shows respiratory acidosis with pH of 7.28, PCO2 80, PO2 of 77 and oxygen saturations of 90. Continue mechanical ventilation. Vent bundle, bronchodilators as needed. Pulmonary following. Continue daily C PAP trials (2) Hyperkalemia ICD Code: E87.5 Status: Acute Plan: Potassium elevated at 6.0 Given D50 and Regular insulin IV. 2 grams of IV calcium chloride and 40 mg of IV lasix on 09/22 Monitor BMP (3) Seizure disorder ICD Code: G40.909 Status: Chronic Plan: EEG done at [facility] showing epileptic discharges persistently. Negative MRI studies. Continue current anticonvulsants. Patient currently on Keppra 1500 mg via PEG twice a day. 09/22 daughter refusing Depakote and Keppra. Reviewed neurology consult and EEG. 09/28- Dr. Prasad-neurology, EEG showing PLEDs, no seizure activity (4) Tracheostomy in place ICD Code: Z93.0 Status: Chronic Plan: Continue with trach care, suctioning as needed, aspiration precautions. Advance tube feeds (Jevity) as tolerated. Check residuals. Continue Reglan. (5) S/P percutaneous endoscopic gastrostomy (PEG) tube placement ICD Code: Z93.1 Status: Chronic Plan: Patient with high residuals on 09/21 - started on Reglan IV scheduled. Dietary consulted (6) H/O cardiac arrest ICD Code: Z86.74 Status: Chronic Plan: Patient has history of cardiac arrest on August 13 on 08/14/16. Continue to monitor on telemetry. Palliative care consulted to help address goals of care and establish a clear CODE STATUS. At [facility] the patient had a limited DO NOT RESUSCITATE. 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 (8) Dementia ICD Code: F03.90 Status: Chronic Plan: Patient currently on Cogentin, Ativan as needed for anxiety. (9) Schizophrenia ICD Code: F20.9 Status: Chronic Plan: Not on any medications at this point. (10) Diabetes mellitus type 2, controlled ICD Code: E11.9 Status: Chronic Plan: Diet controlled. Blood sugar seems to be stable. Not on sliding scale. (11) CAD (coronary artery disease) ICD Code: I25.10 Status: Chronic Plan: Continue aspirin 81 mg. (12) Encephalopathy acute ICD Code: G93.40 Status: Acute Plan: Unclear what baseline is since patient had 2 cardiac arrests over at [facility]. Patient is more lethargic due to Co2 retention and anoxic encephalopathy. Placed on mechanical ventilation 09/22. Prophylaxis GI prophylaxis: Continue PPI. DVT plexus: SCDs, heparin subcutaneously. Access: PICC line. Patient remains full CODE STATUS at this time. Case management - Consider LTAC placement for vent weaning. Level 3 Discussed with [employer] at bedside. Physician Ashli Vasquez MD September 29, 2016 14:11
[2016-09-29] MEDS: TAMSULOSIN HCL 0.4 MG CAP PO SCH (15:26)
--- NOTE | 2016-09-29 17:22 | HHI.PR ---
Subjective Remarks 80 YOAA male multiple co morbid condition VDRF,Trach, tracheal stent Came back from [facility] On ACV no fever Did't tolerate CPAP Objective Vital Signs Vital Signs Date Time Temp Pulse Resp B/P Pulse Ox O2 Delivery O2 Flow Rate FiO2 09/29/16 15:00 98.7 63 18 140/71 100 09/29/16 14:30 65 18 157/80 100 09/29/16 14:00 66 19 159/83 87 09/29/16 14:00 71 09/29/16 13:30 69 19 162/87 96 09/29/16 13:00 72 18 173/89 100 09/29/16 12:30 68 18 137/72 96 09/29/16 12:00 98.9 69 18 136/74 95 09/29/16 12:00 69 09/29/16 12:00 100 Mechanical Ventilator 35 09/29/16 12:00 35 09/29/16 11:30 65 18 123/60 92 09/29/16 11:00 69 21 147/80 90 09/29/16 10:30 73 25 157/77 98 09/29/16 10:00 69 21 131/65 93 09/29/16 09:30 70 22 137/70 100 09/29/16 09:00 100 35 09/29/16 09:00 74 20 152/85 86 09/29/16 08:30 78 24 170/90 90 09/29/16 08:00 35 09/29/16 08:00 100 Mechanical Ventilator 35 09/29/16 08:00 64 09/29/16 08:00 73 25 138/72 94 09/29/16 06:00 Mechanical Ventilator 35 09/29/16 06:00 64 09/29/16 06:00 35 09/29/16 04:38 100 35 09/29/16 04:00 35 09/29/16 04:00 68 09/29/16 04:00 99.0 72 20 138/77 96 09/29/16 04:00 Mechanical Ventilator 35 09/29/16 02:00 70 09/29/16 01:18 95 35 09/29/16 00:00 35 09/29/16 00:00 74 09/29/16 00:00 97.6 70 18 156/83 98 09/29/16 00:00 Mechanical Ventilator 35 09/28/16 22:24 96 35 09/28/16 22:00 74 09/28/16 20:00 70 09/28/16 20:00 98.4 74 18 153/83 100 09/28/16 20:00 35 09/28/16 20:00 Mechanical Ventilator 35 09/28/16 19:58 100 35 09/28/16 18:30 66 18 113/73 98 09/28/16 18:17 95 35 09/28/16 18:01 64 18 107/59 99 09/28/16 18:00 64 18 100 09/28/16 18:00 70 09/28/16 17:30 76 18 176/91 84 I/O 09/28/16 09/28/16 09/28/16 09/29/16 09/29/16 09/29/16 07:00 15:00 23:00 07:00 15:00 23:00 Intake Total 809 ml 1730 ml 2168 ml 1198 ml 995 ml Output Total 950 ml 1050 ml 250 ml 650 ml 700 ml Balance -141 ml 680 ml 1918 ml 548 ml 295 ml IV Total 121 ml 1125 ml 996 ml 614 ml 440 ml Tube Feeding 688 ml 455 ml 1172 ml 584 ml 555 ml Other 150 ml Output Urine Total 950 ml 1050 ml 250 ml 650 ml 700 ml # Bowel Movements 0 1 1 2 Result Diagram: 09/29/1615 09/29/1615 Objective Remarks GENERAL: Elderly male, on Vent SKIN: Warm and dry. HEAD: Normocephalic. EYES: No scleral icterus. No injection or drainage. NECK: Supple, trachea midline. No JVD or lymphadenopathy. Has trach CARDIOVASCULAR: Regular rate and rhythm without murmurs, gallops, or rubs. RESPIRATORY: Breath sounds equal bilaterally. No accessory muscle use. GASTROINTESTINAL: Abdomen soft, non-tender, nondistended. PEG tube in place MUSCULOSKELETAL: No cyanosis, or edema. BACK: Nontender without obvious deformity. No CVA tenderness. A/P Assessment and Plan VDRF Trach Tracheal stent Sz disorder S/P AAA repair S/P cardiac arrest PLAN: Rest with ACV Trach care Aerosol nebs TF Daily CPAP trial Daron Rock MD September 29, 2016 17:22
--- NOTE | 2016-09-29 18:56 | HHI.PR ---
Review/Management Diagnosis severe encepjhalopathy with PLEDS on EEG. No clinical seizures Diagnosis/Plan: Subjective Subjective Comments No acute events reported Active Medications Current Medications Medications (Trade) Dose Ordered Sig/Harry Route Start Time Stop Time Status Last Admin (NS Flush) 2 ml UNSCH PRN IV FLUSH 09/20/16 22:30 (NS Flush) 2 ml BID IV FLUSH 09/21/16 09:00 09/29/16 09:00 (Narcan Inj) 0.4 mg UNSCH PRN IV 09/20/16 22:30 (Tylenol) 650 mg Q6HR PRN PEG 09/21/16 01:30 09/26/16 17:50 (Aspirin Chew) 81 mg DAILY PEG 09/21/16 09:00 09/29/16 09:00 (Dulcolax Supp) 10 mg DAILY PRN RECTAL 09/21/16 01:30 (Ativan) 2 mg Q8HR PRN PEG 09/21/16 01:30 (Zofran Inj) 4 mg Q4HR PRN IV PUSH 09/21/16 01:30 (D50w (Vial) Inj) 25 ml UNSCH PRN IV PUSH 09/21/16 01:30 (Glucagon Inj) 1 mg UNSCH PRN OTHER 09/21/16 01:30 (Keppra Liq) 1,500 mg BID PEG 09/21/16 10:00 09/29/16 09:00 (Protonix Inj) 40 mg DAILY IV PUSH 09/21/16 10:01 09/29/16 09:00 (Cogentin) 1 mg BID PEG 09/21/16 21:00 09/29/16 09:00 (Robinul) 1 mg TID PEG 09/21/16 13:00 09/29/16 15:26 (Depakene Liq) 1,500 mg Q8HR PEG 09/21/16 14:00 09/29/16 14:00 (Heparin Inj) 5,000 units Q8HR SQ 09/21/16 14:00 09/29/16 14:00 (Reglan Inj) 5 mg Q8HR IV PUSH 09/21/16 14:00 09/29/16 14:00 (NS Flush) See Protocol DAILY IV FLUSH 09/23/16 09:00 09/29/16 09:00 (NS Flush) See Protocol UNSCH PRN IV FLUSH 09/22/16 13:45 (Heparin Central Flush) See Protocol DAILY IV FLUSH 09/23/16 09:00 09/29/16 09:00 (Heparin Central Flush) See Protocol UNSCH PRN IV FLUSH 09/22/16 13:45 Sodium Chloride UNSCH PRN IV FLUSH 09/22/16 13:45 (NS 1000 ml Inj) 1,000 ml @ 0 mls/hr Q0M IV 09/22/16 17:30 09/26/16 08:14 (Trandate Inj) 10 mg Q4H PRN IV PUSH 09/23/16 14:00 09/26/16 17:13 (Coreg) 12.5 mg BID PEG 09/24/16 15:00 09/29/16 09:00 Lisinopril 10 mg 10 mg DAILY PEG 09/24/16 14:45 09/29/16 09:00 (NS 1000 ml Inj) 1,000 ml @ 42 mls/hr [id number] IV 09/28/16 11:00 09/29/16 07:00 Allergies Allergies Coded Allergies Penicillin (Verified Allergy, Unknown, 06/30/16) *MDRO Multi-Drug Resistant Organism (Verified Adverse Reaction, Unknown, MRSA , 07/03/16) Codeine (Verified Adverse Reaction, Unknown, Anaphylaxis, 06/30/16) Exam I&O / VS 09/28/16 09/28/16 09/29/16 15:00 23:00 07:00 Intake Total 1730 ml 2168 ml 1198 ml Output Total 1050 ml 250 ml 650 ml Balance 680 ml 1918 ml 548 ml IV Total 1125 ml 996 ml 614 ml Tube Feeding 455 ml 1172 ml 584 ml Other 150 ml Output Urine Total 1050 ml 250 ml 650 ml # Bowel Movements 1 1 Vital Signs Date Time Temp Pulse Resp B/P Pulse Ox O2 Delivery O2 Flow Rate FiO2 09/29/16 18:20 71 09/29/16 17:31 100 35 09/29/16 16:00 179/101 09/29/16 16:00 100 Mechanical Ventilator 35 09/29/16 16:00 75 09/29/16 16:00 35 09/29/16 15:00 98.7 63 18 140/71 100 09/29/16 14:30 65 18 157/80 100 09/29/16 14:00 66 19 159/83 87 09/29/16 14:00 71 09/29/16 13:30 69 19 162/87 96 09/29/16 13:00 72 18 173/89 100 09/29/16 12:30 68 18 137/72 96 09/29/16 12:00 98.9 69 18 136/74 95 09/29/16 12:00 69 09/29/16 12:00 100 Mechanical Ventilator 35 09/29/16 12:00 35 09/29/16 11:30 65 18 123/60 92 09/29/16 11:00 69 21 147/80 90 09/29/16 10:30 73 25 157/77 98 09/29/16 10:00 69 21 131/65 93 09/29/16 09:30 70 22 137/70 100 09/29/16 09:00 100 35 09/29/16 09:00 74 20 152/85 86 09/29/16 08:30 78 24 170/90 90 09/29/16 08:00 35 09/29/16 08:00 100 Mechanical Ventilator 35 09/29/16 08:00 64 09/29/16 08:00 73 25 138/72 94 09/29/16 06:00 Mechanical Ventilator 35 09/29/16 06:00 64 09/29/16 06:00 35 09/29/16 04:38 100 35 09/29/16 04:00 35 09/29/16 04:00 68 09/29/16 04:00 99.0 72 20 138/77 96 09/29/16 04:00 Mechanical Ventilator 35 09/29/16 02:00 70 09/29/16 01:18 95 35 09/29/16 00:00 35 09/29/16 00:00 74 09/29/16 00:00 97.6 70 18 156/83 98 09/29/16 00:00 Mechanical Ventilator 35 09/28/16 22:24 96 35 09/28/16 22:00 74 09/28/16 20:00 70 09/28/16 20:00 98.4 74 18 153/83 100 09/28/16 20:00 35 09/28/16 20:00 Mechanical Ventilator 35 09/28/16 19:58 100 35 Exam Comments nonresponsive PERRL Motor-no spontaneous limb movement. No tonic clonic activity Objective Micro and Labs Laboratory Tests Test 09/29/16 08:15 White Blood Count 7.7 Red Blood Count 2.43 Hemoglobin 8.0 Hematocrit 24.7 Mean Corpuscular Volume 101.3 Mean Corpuscular Hemoglobin 33.0 Mean Corpuscular Hemoglobin 32.6 Concent Red Cell Distribution Width 22.7 Platelet Count 210 Mean Platelet Volume 8.9 Hematology Comments Sodium Level 138 Potassium Level 4.3 Chloride Level 103 Carbon Dioxide Level 28.6 Anion Gap 6 Blood Urea Nitrogen 19 Creatinine 0.77 Estimat Glomerular Filtration 118 Rate Random Glucose 141 Calcium Level 8.6 Phosphorus Level 2.4 Magnesium Level 2.2 James Prasad. PhD September 29, 2016 18:56
[2016-09-30] VITALS (35 sets, daily range): BP systolic 67–154; BP diastolic 45–78; PULSE 62–85; RESP 17–31; TEMP 97.2–99.4; O2SAT 87–100
[2016-09-30] MEDS: VALPROIC ACID SYRUP 250 MG/5 ML UDC PEG SCH ×3 (06:40→22:04)
[2016-09-30] MEDS: METOCLOPRAMIDE HCL 10 MG/2 ML VIAL IV PUSH SCH ×3 (06:40→21:56)
[2016-09-30] MEDS: HEPARIN SODIUM - SQ 10,000 UNITS/ML VIAL SQ SCH ×3 (06:41→21:56)
[2016-09-30] MEDS: BENZTROPINE MESYLATE 1 MG TAB PEG SCH ×2 (08:16→21:54)
[2016-09-30] MEDS: levETIRAcetam 500 MG/5 ML UDC PEG SCH ×2 (08:16→21:55)
[2016-09-30] MEDS: GLYCOPYRROLATE 1 MG TAB PEG SCH ×3 (08:17→18:37)
[2016-09-30] MEDS: PANTOPRAZOLE SODIUM 40 MG VIAL IV PUSH SCH (08:17)
[2016-09-30] MEDS: LISINOPRIL 10 MG TAB PEG SCH (08:17)
[2016-09-30] MEDS: CARVEDILOL 12.5 MG TAB PEG SCH ×2 (08:17→21:00)
[2016-09-30] MEDS: SODIUM CHLORIDE 0.9% FLUSH 10 ML FLUSH IV FLUSH PRN (08:17)
[2016-09-30] MEDS: ASPIRIN 81 MG CHEW TAB PEG SCH (08:17)
[2016-09-30] MEDS: SODIUM CHLORIDE 0.9% FLUSH 10 ML FLUSH IV FLUSH SCH ×3 (08:18→21:54)
--- NOTE | 2016-09-30 08:29 | MG ---
cc: KELVIN MENDOZA Lab No: [id number] Date: 09/30/2016 Age: 80 Sex: M Race: Patient grimaces to pain, intubated no sedation, cardiac arrest Laureano Taylor. Some small sharps and spikes are seen bilaterally epoch 12. It is noted to be a little bit more over the left central head region and left frontal head region and on the right, better seen on the transverse montage but they are bilateral and on the bipolar appear to be more synchronous they recur at times every second or every three seconds. Very small, sharp spike or spikes and after coming slow wave is noted, they did not appear in runs, no prolonged seizure activity is seen. Photic stimulation was performed without significant posterior driving and facial movement is seen, there photic stimulation, but that does not correlate with any seizure activity and is also seen without photic correlation. I cannot tell if it is timed with the small sharp waves. Hyperventilation is not performed. IMPRESSION Still with bilateral sharps and spikes not particularly periodic certainly abnormal, no prolonged seizure activity is seen. Phenobarbital could be considered if these are resistant to other medications. MD NAPOLEON Caldwell/dunia /7:50 AM /8:17 AM
[2016-09-30] MEDS: RESP: TOBRAMYCIN SULFATE 300 MG/5 ML NEB NEB SCH ×2 (10:13→20:00)
[2016-09-30] MEDS: RESP: ALBUTEROL 2.5 MG/IPRATROPIUM 0.5 MG NEB (PRN) NEB (10:13)
[2016-09-30] MEDS: SODIUM CHLOR 0.9% 1000 ML INJ 1,000 ML IV SCH (12:55)
[2016-09-30] MEDS: TAMSULOSIN HCL 0.4 MG CAP PO SCH (16:00)
--- NOTE | 2016-09-30 17:08 | HHI.CCPN ---
Subjective Remarks/Hospital Course 09/22: Patient was transferred from [facility] to [facility] in [place] on July 01, 2016. He was admitted to our hospital on June 30, 2016. Patient is a trach dependent and PEG dependent patient since about 2010 when we first saw him at our hospital. In June of this year, he presented to our emergency room and was admitted to the robotics testing technician service. He was having blood clots through his PEG tube as well with respiratory failure requiring ventilator support. He has had history of tracheomalacia with tracheal stent placed in [facility] about 2 years prior. Subsequent workup here in June revealed his tracheal stent 80%occlusion with debris versus mass. Therapeutic bronchoscopy was done here which shows near complete occlusion of tracheal stent with organized clots and mucous. He was managed overnight by robotics testing technician team and was transferred to [facility] because of this tracheal stent occlusion with hemoptysis. Patient was managed at [facility] for this tracheal stent occlusion and underwent multiple bronchoscopies and tracheostomy revision and tracheal stent revision with new stent placement. He also had cardiac arrest while in hospital on August 13, 2016 and August 14, 2016. He required ventilator support during the hospitalization and currently on FiO2 of 28% through trach. He was managed there for pseudomonas pneumonia with colonization and MRSA from bronchial lavage. 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 He was also managed for massive distention of the colon suspicious for volvulus versus ileus. He was finally stabilized and managed on PCU service at present and transferred back to [facility] on 09/20/16 when he was admitted by the hospitalist service to the floor on [facility]. This morning patient was noted to be lethargic and an ABG revealed PCO2 in the 80s. He was transferred to [facility] with critical care consult being requested by Dr. Chen. He was placed on mechanical ventilation. I evaluated the patient shortly following his arrival. History was obtained by reviewing records and discussion with Dr. Chen. 09/23: Remains encephalopathic on mechanical ventilation via tracheostomy. Tube feeds Resumed yesterday and tolerating well currently. 09/24: Remains encephalopathic on mechanical ventilation via tracheostomy. Blood pressure running high. Increased Coreg and started lisinopril. 09/25: Remains encephalopathic, on mechanical ventilation via tracheostomy. Tolerating tube feeds. Continue C Pap trials daily. 09/26: Remains encephalopathic, on mechanical ventilation via tracheostomy. Having apneic episodes with C Pap trials today. Tolerating tube feeds. 09/27: Remains encephalopathic, and mechanical ventilation via tracheostomy. C Pap/T piece trials as tolerated. 09/28: Continues to remain encephalopathic. Unsuccessful CPAP trials, tolerating tube feeds minimal residuals. 09/29: Tmax 98.4. No change in neurological status. CPAP trials continued but unsuccessful. 09/30: Afebrile. Remains encephalopathic. Patient tolerating CPAP trials greater than 4 hours today. Urine output adequate IV fluids discontinued. Objective Vital Signs Date Time Temp Pulse Resp B/P Pulse Ox O2 Delivery O2 Flow Rate FiO2 09/30/16 14:47 100 35 09/30/16 14:00 66 09/30/16 13:00 17 93/55 09/30/16 12:00 97.9 09/30/16 12:00 Mechanical Ventilator 09/27/16 11:46 5.00 Intake and Output 09/29/16 09/29/16 09/30/16 08:00 16:00 00:00 Intake Total 1198 ml 995 ml 2063 ml Output Total 650 ml 700 ml 1100 ml Balance 548 ml 295 ml 963 ml Result Diagram: 09/29/16 0815 09/29/16 0815 Imaging 09/22 CXR (portable) - personally reviewed: Tracheostomy in place, tracheal stent noted, good aeration bilateral lung casanova with prominent interstitial markings Objective Remarks Physical Exam BP 109/68 P 64 O2 saturation on 100% GENERAL: This is an elderly gentleman, noncommunicative, trach dependent, PEG dependent SKIN: Sacral decubiti with wound packing and discharge HEAD: Atraumatic. Normocephalic. EYES: Left-sided ptosis No scleral icterus. No injection or drainage. ENT: Nose without bleeding, purulent drainage or septal hematoma Airway patent. Tracheostomy in place NECK: Trachea midline. No JVD CARDIOVASCULAR: Regular rate and rhythm without murmurs, gallops, or rubs. RESPIRATORY: On mechanical ventilation via tracheostomy, Bilaterally decreased air entry GASTROINTESTINAL: Abdomen soft, non-tender, nondistended.No guarding. MUSCULOSKELETAL: Bilateral lower extremity contracture. Atrophic. No calf asymmetry. NEUROLOGICAL: Spontaneously opens his eyes. However not really tracking. Does not follow any commands. Bilateral upper and lower extremity contractures with muscle atrophy. Urinary Catheter: Yes A/P Assessment and Plan Impression: Acute respiratory failure requiring mechanical ventilation Acute respiratory acidosis Hypotension : Resolved with fluid bolus. A/P Problem List: (1) [id number] respiratory failure ICD Code: J96.20 Status: Acute Plan: Patient with acute episode of hypoxemia into the 80's, suspect aspiration. Received Solumedrol 125 mg IV stat and 40 mg IV Lasix prior to transfer to ICU. ABG shows respiratory acidosis with pH of 7.28, PCO2 80, PO2 of 77 and oxygen saturations of 90. Continue mechanical ventilation. Vent bundle, bronchodilators as needed. Pulmonary following. Continue daily C PAP trials (2) Hyperkalemia ICD Code: E87.5 Status: Acute Plan: Potassium elevated at 6.0 Given D50 and Regular insulin IV. 2 grams of IV calcium chloride and 40 mg of IV lasix on 09/22 Monitor BMP (3) Seizure disorder ICD Code: G40.909 Status: Chronic Plan: EEG done at [facility] showing epileptic discharges persistently. Negative MRI studies. Continue current anticonvulsants. Patient currently on Keppra 1500 mg via PEG twice a day. 09/22 daughter refusing Depakote and Keppra. Reviewed neurology consult and EEG. 09/28- Dr. Prasad-neurology, EEG showing PLEDs, no seizure activity (4) Tracheostomy in place ICD Code: Z93.0 Status: Chronic Plan: Continue with trach care, suctioning as needed, aspiration precautions. Continue tube feeds (Jevity) as tolerated. Check residuals. Continue Reglan TID (5) S/P percutaneous endoscopic gastrostomy (PEG) tube placement ICD Code: Z93.1 Status: Chronic Plan: Patient with high residuals on 09/21 - started on Reglan IV scheduled. (6) H/O cardiac arrest ICD Code: Z86.74 Status: Chronic Plan: Patient has history of cardiac arrest on August 13 on 08/14/16. Continue to monitor on telemetry. Palliative care consulted to help address goals of care and establish a clear CODE STATUS. At [facility] the patient had a limited DO NOT RESUSCITATE. 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 (8) Dementia ICD Code: F03.90 Status: Chronic Plan: Patient currently on Cogentin, Ativan as needed for anxiety. (9) Schizophrenia ICD Code: F20.9 Status: Chronic Plan: Not on any medications at this point. (10) Diabetes mellitus type 2, controlled ICD Code: E11.9 Status: Chronic Plan: Diet controlled. Blood sugar seems to be stable. Not on sliding scale. (11) CAD (coronary artery disease) ICD Code: I25.10 Status: Chronic Plan: Continue aspirin 81 mg. (12) Encephalopathy acute ICD Code: G93.40 Status: Acute Plan: Unclear what baseline is since patient had 2 cardiac arrests over at [facility]. Patient is more lethargic due to Co2 retention and anoxic encephalopathy. Placed on mechanical ventilation 09/22. Prophylaxis GI prophylaxis: Continue PPI. DVT plexus: SCDs, heparin SQ Access: PICC line. Patient remains full CODE STATUS at this time. Case management - Consider LTAC placement for vent weaning. Level 3 Discussed with SERVER PROGRAMMER at bedside. Physician Ashli Vasquez MD September 30, 2016 17:08
[2016-10-01] VITALS (36 sets, daily range): BP systolic 110–153; BP diastolic 56–74; PULSE 65–79; RESP 18–36; TEMP 98.5–99.6; O2SAT 90–100
--- NOTE | 2016-10-01 04:53 | RADRPT ---
EXAM DATE/TIME: 10/01/2016 03:32 [place] COMPARISON: CHEST SINGLE AP, September 29, 2016, 3:41. INDICATIONS : Shortness of breath, possible pulmonary disease. MEDICAL HISTORY : Carcinoma, prostatic. Chronic obstructive pulmonary disease. Gastroesophageal reflux disease. Gris mehdi SURGICAL HISTORY : Umbilical hernia repair. ENCOUNTER: Subsequent ACUITY: 1 week PAIN SCORE: Non-responsive. LOCATION: Bilateral chest FINDINGS: A single view of the chest demonstrates cardiomegaly with perihilar airspace disease greater on the l eft with slight improvement. Tracheostomy tube unchanged. Right-sided PICC line with tip in the SVC. Stent noted in the midline likely within the esophagus.. Osseous structures are intact. CONCLUSION: Cardiomegaly with perihilar airspace disease, slightly improved. Zach Herzog MD on October 01, 2016 at 4:50 Board Certified Radiologist. This report was verified electronically.
[2016-10-01] MEDS: METOCLOPRAMIDE HCL 10 MG/2 ML VIAL IV PUSH SCH ×3 (04:55→21:35)
[2016-10-01] MEDS: HEPARIN SODIUM - SQ 10,000 UNITS/ML VIAL SQ SCH ×3 (04:55→21:36)
[2016-10-01] MEDS: VALPROIC ACID SYRUP 250 MG/5 ML UDC PEG SCH ×3 (04:56→21:35)
[2016-10-01 06:00] LABS: BICARBONATE 30.5 MEQ/L (21.0-32.0); MAGNESIUM 2.3 MG/DL (1.5-2.5); POTASSIUM 4.4 MEQ/L (3.5-5.1)
[2016-10-01 06:43] LABS: HEMATOCRIT 22.1 % (39.0-51.0); MEAN CELL VOLUME 101.2 FL (80.0-100.0); MEAN CORPUSCULAR HEMOGLOBIN 34.9 PG (27.0-34.0); MEAN CORPUSCULAR HGB CONC 34.5 % (32.0-36.0); PLATELET COUNT 227 TH/MM3 (150-450); RED BLOOD COUNT 2.19 MIL/MM3 (4.50-5.90); RED CELL DISTRIBUTION WIDTH 22.1 % (11.6-17.2); REVIEW FLAG FINAL; WHITE BLOOD COUNT 5.8 TH/MM3 (4.0-11.0)
[2016-10-01] MEDS: ASPIRIN 81 MG CHEW TAB PEG SCH (09:29)
[2016-10-01] MEDS: GLYCOPYRROLATE 1 MG TAB PEG SCH ×3 (09:29→17:24)
[2016-10-01] MEDS: BENZTROPINE MESYLATE 1 MG TAB PEG SCH ×2 (09:29→23:36)
[2016-10-01] MEDS: LISINOPRIL 10 MG TAB PEG SCH (09:30)
[2016-10-01] MEDS: SODIUM CHLORIDE 0.9% FLUSH 10 ML FLUSH IV FLUSH SCH ×3 (09:30→21:33)
[2016-10-01] MEDS: PANTOPRAZOLE SODIUM 40 MG VIAL IV PUSH SCH (09:30)
[2016-10-01] MEDS: levETIRAcetam 500 MG/5 ML UDC PEG SCH ×2 (09:31→21:35)
[2016-10-01] MEDS: CARVEDILOL 12.5 MG TAB PEG SCH ×2 (09:31→21:00)
[2016-10-01] MEDS: RESP: TOBRAMYCIN SULFATE 300 MG/5 ML NEB NEB SCH ×2 (10:47→20:55)
[2016-10-01] MEDS: RESP: ALBUTEROL 2.5 MG/IPRATROPIUM 0.5 MG NEB (PRN) NEB ×2 (10:47→20:55)
--- NOTE | 2016-10-01 14:35 | HHI.CCPN ---
Subjective Remarks/Hospital Course 09/22: Patient was transferred from [facility] to [facility] in [place] on July 01, 2016. He was admitted to our hospital on June 30, 2016. Patient is a trach dependent and PEG dependent patient since about 2010 when we first saw him at our hospital. In June of this year, he presented to our emergency room and was admitted to the adobe layer helper service. He was having blood clots through his PEG tube as well with respiratory failure requiring ventilator support. He has had history of tracheomalacia with tracheal stent placed in [facility] about 2 years prior. Subsequent workup here in June revealed his tracheal stent 80%occlusion with debris versus mass. Therapeutic bronchoscopy was done here which shows near complete occlusion of tracheal stent with organized clots and mucous. He was managed overnight by adobe layer helper team and was transferred to [facility] because of this tracheal stent occlusion with hemoptysis. Patient was managed at [facility] for this tracheal stent occlusion and underwent multiple bronchoscopies and tracheostomy revision and tracheal stent revision with new stent placement. He also had cardiac arrest while in hospital on August 13, 2016 and August 14, 2016. He required ventilator support during the hospitalization and currently on FiO2 of 28% through trach. He was managed there for pseudomonas pneumonia with colonization and MRSA from bronchial lavage. 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 He was also managed for massive distention of the colon suspicious for volvulus versus ileus. He was finally stabilized and managed on PCU service at present and transferred back to [facility] on 09/20/16 when he was admitted by the hospitalist service to the floor on [facility]. This morning patient was noted to be lethargic and an ABG revealed PCO2 in the 80s. He was transferred to [facility] with critical care consult being requested by Dr. Chen. He was placed on mechanical ventilation. I evaluated the patient shortly following his arrival. History was obtained by reviewing records and discussion with Dr. Chen. 09/23: Remains encephalopathic on mechanical ventilation via tracheostomy. Tube feeds Resumed yesterday and tolerating well currently. 09/24: Remains encephalopathic on mechanical ventilation via tracheostomy. Blood pressure running high. Increased Coreg and started lisinopril. 09/25: Remains encephalopathic, on mechanical ventilation via tracheostomy. Tolerating tube feeds. Continue C Pap trials daily. 09/26: Remains encephalopathic, on mechanical ventilation via tracheostomy. Having apneic episodes with C Pap trials today. Tolerating tube feeds. 09/27: Remains encephalopathic, and mechanical ventilation via tracheostomy. C Pap/T piece trials as tolerated. 09/28: Continues to remain encephalopathic. Unsuccessful CPAP trials, tolerating tube feeds minimal residuals. 09/29: Tmax 98.4. No change in neurological status. CPAP trials continued but unsuccessful. 09/30: Afebrile. Remains encephalopathic. Patient tolerating CPAP trials greater than 4 hours today. Urine output adequate IV fluids discontinued. 10/01: The patient is advancing on CPAP trials greater than 4 hours today. No change in neurological status. Urine output adequate IV fluids discontinued. Objective Vital Signs Date Time Temp Pulse Resp B/P Pulse Ox O2 Delivery O2 Flow Rate FiO2 10/01/16 13:00 79 33 151/68 99 10/01/16 12:00 99.0 10/01/16 12:00 Mechanical Ventilator 35 09/27/16 11:46 5.00 Intake and Output 09/30/16 09/30/16 10/01/16 08:00 16:00 00:00 Intake Total 830 ml 927 ml 636 ml Output Total 550 ml 425 ml 275 ml Balance 280 ml 502 ml 361 ml Result Diagram: 10/01/16 0450 10/01/16 0450 Imaging 09/22 CXR (portable) - personally reviewed: Tracheostomy in place, tracheal stent noted, good aeration bilateral lung casanova with prominent interstitial markings Objective Remarks Physical Exam GENERAL: This is an elderly gentleman, noncommunicative, trach dependent, PEG dependent SKIN: Sacral decubiti with wound packing and discharge HEAD: Atraumatic. Normocephalic. EYES: Left-sided ptosis No scleral icterus. No injection or drainage. ENT: Nose without bleeding, purulent drainage or septal hematoma Airway patent. Tracheostomy in place NECK: Trachea midline. No JVD CARDIOVASCULAR: Regular rate and rhythm without murmurs, gallops, or rubs. RESPIRATORY: On mechanical ventilation via tracheostomy, Bilaterally decreased air entry GASTROINTESTINAL: Abdomen soft, non-tender, nondistended.No guarding. MUSCULOSKELETAL: Bilateral lower extremity contracture. Atrophic. No calf asymmetry. NEUROLOGICAL: Spontaneously opens his eyes. However not really tracking. Does not follow any commands. Bilateral upper and lower extremity contractures with muscle atrophy. A/P Assessment and Plan Impression: Acute respiratory failure requiring mechanical ventilation Acute respiratory acidosis Hypotension : Resolved with fluid bolus. A/P Problem List: (1) Qdrtq-id-mvhztiw respiratory failure ICD Code: J96.20 Status: Acute Plan: Patient with acute episode of hypoxemia into the 80's, suspect aspiration. Received Solumedrol 125 mg IV stat and 40 mg IV Lasix prior to transfer to ICU. Continue mechanical ventilation. Vent bundle, bronchodilators as needed. Pulmonary following. Continue daily C PAP trials (2) Hyperkalemia ICD Code: E87.5 Status: Acute Plan: Potassium elevated at 6.0 Given D50 and Regular insulin IV. 2 grams of IV calcium chloride and 40 mg of IV lasix on 09/22 Monitor BMP (3) Seizure disorder ICD Code: G40.909 Status: Chronic Plan: EEG done at [facility] showing epileptic discharges persistently. Negative MRI studies. Continue current anticonvulsants. Patient currently on Keppra 1500 mg via PEG twice a day. 09/22 daughter refusing Depakote and Keppra. Reviewed neurology consult and EEG. 09/28- Dr. Prasad-neurology, EEG showing PLEDs, no seizure activity (4) Tracheostomy in place ICD Code: Z93.0 Status: Chronic Plan: Continue with trach care, suctioning as needed, aspiration precautions. Continue tube feeds (Jevity) as tolerated. Check residuals. Continue Reglan TID (5) S/P percutaneous endoscopic gastrostomy (PEG) tube placement ICD Code: Z93.1 Status: Chronic Plan: Patient with high residuals on 09/21 - started on Reglan IV scheduled. (6) H/O cardiac arrest ICD Code: Z86.74 Status: Chronic Plan: Patient has history of cardiac arrest on August 13 on 08/14/16. Continue to monitor on telemetry. Palliative care consulted to help address goals of care and establish a clear CODE STATUS. At [facility] the patient had a limited DO NOT RESUSCITATE. 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 (8) Dementia ICD Code: F03.90 Status: Chronic Plan: Patient currently on Cogentin, Ativan as needed for anxiety. (9) Schizophrenia ICD Code: F20.9 Status: Chronic Plan: Not on any medications at this point. (10) Diabetes mellitus type 2, controlled ICD Code: E11.9 Status: Chronic Plan: Diet controlled. Blood sugar seems to be stable. Not on sliding scale. (11) CAD (coronary artery disease) ICD Code: I25.10 Status: Chronic Plan: Continue aspirin 81 mg. (12) Encephalopathy acute ICD Code: G93.40 Status: Acute Plan: Unclear what baseline is since patient had 2 cardiac arrests over at [facility]. Patient is more lethargic due to Co2 retention and anoxic encephalopathy. Placed on mechanical ventilation 09/22. Prophylaxis GI prophylaxis: Continue PPI. DVT plexus: SCDs, heparin SQ Access: PICC line. Patient remains full CODE STATUS at this time. Case management following for LTAC placement for vent weaning. Level 3 Discussed with WIG DRESSER at bedside. Physician Ashli Vasquez MD October 01, 2016 14:35
[2016-10-01] MEDS: TAMSULOSIN HCL 0.4 MG CAP PO SCH (15:43)
[2016-10-02] VITALS (16 sets, daily range): BP systolic 111–147; BP diastolic 56–72; PULSE 73–89; RESP 18–29; TEMP 99.4–100.1; O2SAT 97–100
[2016-10-02] MEDS: VALPROIC ACID SYRUP 250 MG/5 ML UDC PEG SCH ×2 (05:27→14:00)
[2016-10-02] MEDS: HEPARIN SODIUM - SQ 10,000 UNITS/ML VIAL SQ SCH ×3 (05:27→22:47)
[2016-10-02] MEDS: METOCLOPRAMIDE HCL 10 MG/2 ML VIAL IV PUSH SCH ×3 (05:28→22:46)
[2016-10-02] MEDS: SODIUM CHLORIDE 0.9% FLUSH 10 ML FLUSH IV FLUSH SCH ×3 (09:00→21:00)
[2016-10-02] MEDS: PANTOPRAZOLE SODIUM 40 MG VIAL IV PUSH SCH (09:30)
[2016-10-02] MEDS: BENZTROPINE MESYLATE 1 MG TAB PEG SCH ×2 (09:30→22:47)
[2016-10-02] MEDS: CARVEDILOL 12.5 MG TAB PEG SCH ×2 (09:31→22:47)
[2016-10-02] MEDS: LISINOPRIL 10 MG TAB PEG SCH (09:31)
[2016-10-02] MEDS: GLYCOPYRROLATE 1 MG TAB PEG SCH ×3 (09:31→18:41)
[2016-10-02] MEDS: ASPIRIN 81 MG CHEW TAB PEG SCH (09:31)
[2016-10-02] MEDS: levETIRAcetam 500 MG/5 ML UDC PEG SCH (09:45)
[2016-10-02] MEDS: RESP: ALBUTEROL 2.5 MG/IPRATROPIUM 0.5 MG NEB (PRN) NEB (09:56)
[2016-10-02] MEDS: RESP: TOBRAMYCIN SULFATE 300 MG/5 ML NEB NEB SCH ×2 (09:56→21:05)
[2016-10-02 13:01] LABS: BACTERIA, URINE RARE /hpf; BLOOD, URINE NEG (NEG); COMMENT (UR) CULTURE INDICATED; CULTURE IF INDICATED CULTURE INDICATED; GLUCOSE,URINE NEG (NEG); KETONE, URINE NEG (NEG); MUCUS URINE FEW /lpf (OCC); NITRITE,URINE NEG (NEG); PH, URINE 7.5 (5.0-8.5); URINE COLOR YELLOW (YELLW/STRAW)
[2016-10-02] MEDS: TAMSULOSIN HCL 0.4 MG CAP PO SCH (15:23)
--- NOTE | 2016-10-02 19:38 | HHI.PR ---
Subjective Remarks 80 YOAA male multiple co morbid condition VDRF,Trach, tracheal stent Came back from [facility] no fever Tolerates Trach collar Daughter refused sz meds Objective Vital Signs Vital Signs Date Time Temp Pulse Resp B/P Pulse Ox O2 Delivery O2 Flow Rate FiO2 10/02/16 18:00 87 10/02/16 16:00 35 10/02/16 16:00 87 10/02/16 16:00 99.7 87 29 129/63 99 10/02/16 16:00 99 Mechanical Ventilator 35 10/02/16 14:00 89 10/02/16 12:00 35 10/02/16 12:00 98 Mechanical Ventilator 35 10/02/16 12:00 100.1 89 27 111/56 98 10/02/16 12:00 89 10/02/16 10:00 88 10/02/16 09:58 99 35 10/02/16 08:00 99 Mechanical Ventilator 35 10/02/16 08:00 100.1 84 19 143/72 99 10/02/16 08:00 84 10/02/16 08:00 35 10/02/16 06:00 82 10/02/16 04:46 97 35 10/02/16 04:00 73 10/02/16 04:00 35 10/02/16 04:00 99.6 73 18 125/64 97 10/02/16 04:00 97 Mechanical Ventilator 35 10/02/16 02:00 73 10/02/16 00:36 100 35 10/02/16 00:00 100 Mechanical Ventilator 35 10/02/16 00:00 74 10/02/16 00:00 35 10/02/16 00:00 99.4 74 21 132/72 97 10/01/16 22:00 70 10/01/16 20:56 100 35 10/01/16 20:00 67 10/01/16 20:00 99.6 67 25 114/59 99 10/01/16 20:00 35 10/01/16 20:00 100 Mechanical Ventilator 35 I/O 10/01/16 10/01/16 10/01/16 10/02/16 10/02/16 10/02/16 07:00 15:00 23:00 07:00 15:00 23:00 Intake Total 578 ml 586 ml 562 ml 646 ml 713 ml Output Total 625 ml 375 ml 700 ml 520 ml 775 ml Balance -47 ml 211 ml -138 ml 126 ml -62 ml IV Total 0 ml Tube Feeding 518 ml 586 ml 502 ml 586 ml 593 ml Tube Irrigant 60 ml 60 ml 60 ml 120 ml Output Urine Total 625 ml 375 ml 700 ml 520 ml 775 ml # Voids 2 1 0 # Bowel Movements 1 1 0 0 0 Result Diagram: 10/01/1644910/01/16449 Objective Remarks GENERAL: Elderly male, on Vent SKIN: Warm and dry. HEAD: Normocephalic. EYES: No scleral icterus. No injection or drainage. NECK: Supple, trachea midline. No JVD or lymphadenopathy. Has trach CARDIOVASCULAR: Regular rate and rhythm without murmurs, gallops, or rubs. RESPIRATORY: Breath sounds equal bilaterally. No accessory muscle use. GASTROINTESTINAL: Abdomen soft, non-tender, nondistended. PEG tube in place MUSCULOSKELETAL: No cyanosis, or edema. BACK: Nontender without obvious deformity. No CVA tenderness. A/P Assessment and Plan VDRF Trach Tracheal stent Sz disorder S/P AAA repair S/P cardiac arrest PLAN: Trach care Aerosol nebs TF Cont trach collar Daron Rock MD October 02, 2016 19:38
--- NOTE | 2016-10-02 19:47 | HHI.CCPN ---
Subjective Remarks/Hospital Course 09/22: Patient was transferred from [facility] to [facility] in [place] on July 01, 2016. He was admitted to our hospital on June 30, 2016. Patient is a trach dependent and PEG dependent patient since about 2010 when we first saw him at our hospital. In June of this year, he presented to our emergency room and was admitted to the learning support specialist service. He was having blood clots through his PEG tube as well with respiratory failure requiring ventilator support. He has had history of tracheomalacia with tracheal stent placed in [facility] about 2 years prior. Subsequent workup here in June revealed his tracheal stent 80%occlusion with debris versus mass. Therapeutic bronchoscopy was done here which shows near complete occlusion of tracheal stent with organized clots and mucous. He was managed overnight by learning support specialist team and was transferred to [facility] because of this tracheal stent occlusion with hemoptysis. Patient was managed at [facility] for this tracheal stent occlusion and underwent multiple bronchoscopies and tracheostomy revision and tracheal stent revision with new stent placement. He also had cardiac arrest while in hospital on August 13, 2016 and August 14, 2016. He required ventilator support during the hospitalization and currently on FiO2 of 28% through trach. He was managed there for pseudomonas pneumonia with colonization and MRSA from bronchial lavage. 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 He was also managed for massive distention of the colon suspicious for volvulus versus ileus. He was finally stabilized and managed on PCU service at present and transferred back to [facility] on 09/20/16 when he was admitted by the hospitalist service to the floor on [facility]. This morning patient was noted to be lethargic and an ABG revealed PCO2 in the 80s. He was transferred to [facility] with critical care consult being requested by Dr. Chen. He was placed on mechanical ventilation. I evaluated the patient shortly following his arrival. History was obtained by reviewing records and discussion with Dr. Chen. 09/23: Remains encephalopathic on mechanical ventilation via tracheostomy. Tube feeds Resumed yesterday and tolerating well currently. 09/24: Remains encephalopathic on mechanical ventilation via tracheostomy. Blood pressure running high. Increased Coreg and started lisinopril. 09/25: Remains encephalopathic, on mechanical ventilation via tracheostomy. Tolerating tube feeds. Continue C Pap trials daily. 09/26: Remains encephalopathic, on mechanical ventilation via tracheostomy. Having apneic episodes with C Pap trials today. Tolerating tube feeds. 09/27: Remains encephalopathic, and mechanical ventilation via tracheostomy. C Pap/T piece trials as tolerated. 09/28: Continues to remain encephalopathic. Unsuccessful CPAP trials, tolerating tube feeds minimal residuals. 09/29: Tmax 98.4. No change in neurological status. CPAP trials continued but unsuccessful. 09/30: Afebrile. Remains encephalopathic. Patient tolerating CPAP trials greater than 4 hours today. Urine output adequate IV fluids discontinued. 10/01: The patient is advancing on CPAP trials greater than 4 hours today. No change in neurological status. Urine output adequate IV fluids discontinued. 10/02: Family daughter request stating that Keppra be held and continues to refuse Depakote. The patient was maintained on CPAP trials for approximately 4 hours yesterday. The patient was noted to have an elevation in temperature, cultures were obtained. Objective Vital Signs Date Time Temp Pulse Resp B/P Pulse Ox O2 Delivery O2 Flow Rate FiO2 10/02/16 18:00 87 10/02/16 16:00 35 10/02/16 16:00 99.7 29 129/63 99 10/02/16 16:00 Mechanical Ventilator Intake and Output 10/01/16 10/01/16 10/02/16 08:00 16:00 00:00 Intake Total 578 ml 586 ml 562 ml Output Total 625 ml 375 ml 700 ml Balance -47 ml 211 ml -138 ml Result Diagram: 10/01/16 0450 10/01/16 0450 Imaging 09/22 CXR (portable) - personally reviewed: Tracheostomy in place, tracheal stent noted, good aeration bilateral lung casanova with prominent interstitial markings Objective Remarks Physical Exam GENERAL: This is an elderly gentleman, noncommunicative, trach dependent, PEG dependent SKIN: Sacral decubiti with wound packing and discharge HEAD: Atraumatic. Normocephalic. EYES: Left-sided ptosis No scleral icterus. No injection or drainage. ENT: Nose without bleeding, purulent drainage or septal hematoma Airway patent. Tracheostomy in place NECK: Trachea midline. No JVD CARDIOVASCULAR: Regular rate and rhythm without murmurs, gallops, or rubs. RESPIRATORY: On mechanical ventilation via tracheostomy, Bilaterally decreased air entry GASTROINTESTINAL: Abdomen soft, non-tender, nondistended.No guarding. MUSCULOSKELETAL: Bilateral lower extremity contracture. Atrophic. No calf asymmetry. NEUROLOGICAL: Spontaneously opens his eyes. However not really tracking. Does not follow any commands. Bilateral upper and lower extremity contractures with muscle atrophy. A/P Assessment and Plan Impression: Acute respiratory failure requiring mechanical ventilation Acute respiratory acidosis Hypotension : Resolved with fluid bolus. A/P Problem List: (1) Ljqrg-my-jwgmjlr respiratory failure ICD Code: J96.20 Status: Acute Plan: Patient with acute episode of hypoxemia into the 80's, suspect aspiration. Received Solumedrol 125 mg IV stat and 40 mg IV Lasix prior to transfer to ICU. Continue mechanical ventilation. Vent bundle, bronchodilators as needed. Pulmonary following. Continue daily C PAP trials (2) Hyperkalemia ICD Code: E87.5 Status: Acute Plan: Potassium elevated at 6.0 Given D50 and Regular insulin IV. 2 grams of IV calcium chloride and 40 mg of IV lasix on 09/22 Monitor BMP (3) Seizure disorder ICD Code: G40.909 Status: Chronic Plan: EEG done at [facility] showing epileptic discharges persistently. Negative MRI studies. Continue current anticonvulsants. Patient currently on Keppra 1500 mg via PEG twice a day. 09/22 daughter refusing Depakote and Keppra. Reviewed neurology consult and EEG. 10/02 still refusing Depakote and Keppra 09/28- Dr. Prasad-neurology, EEG showing PLEDs, no seizure activity (4) Tracheostomy in place ICD Code: Z93.0 Status: Chronic Plan: Continue with trach care, suctioning as needed, aspiration precautions. Continue tube feeds (Jevity) as tolerated. Check residuals. Continue Reglan TID (5) S/P percutaneous endoscopic gastrostomy (PEG) tube placement ICD Code: Z93.1 Status: Chronic Plan: Patient with high residuals on 09/21 - started on Reglan IV scheduled. (6) H/O cardiac arrest ICD Code: Z86.74 Status: Chronic Plan: Patient has history of cardiac arrest on August 13 on 08/14/16. Continue to monitor on telemetry. Palliative care consulted to help address goals of care and establish a clear CODE STATUS. At [facility] the patient had a limited DO NOT RESUSCITATE. 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 (8) Dementia ICD Code: F03.90 Status: Chronic Plan: Patient currently on Cogentin, Ativan as needed for anxiety. (9) Schizophrenia ICD Code: F20.9 Status: Chronic Plan: Not on any medications at this point. (10) Diabetes mellitus type 2, controlled ICD Code: E11.9 Status: Chronic Plan: Diet controlled. Blood sugar seems to be stable. Not on sliding scale. (11) CAD (coronary artery disease) ICD Code: I25.10 Status: Chronic Plan: Continue aspirin 81 mg. (12) Encephalopathy acute ICD Code: G93.40 Status: Acute Plan: Unclear what baseline is since patient had 2 cardiac arrests over at [facility]. Patient is more lethargic due to Co2 retention and anoxic encephalopathy. Placed on mechanical ventilation 09/22. Prophylaxis GI prophylaxis: Continue PPI. DVT plexus: SCDs, heparin SQ Access: PICC line. Patient remains full CODE STATUS at this time. Case management following for LTAC placement for vent weaning. Dispo: Wound care management consult initiated again today. Discussed with daughter the EEG results and she requests that both medications Keppra and Depakote be discontinued. Level 3 Discussed with SHIPWRIGHT APPRENTICE at bedside. Physician Ashli Vasquez MD October 02, 2016 19:47
[2016-10-03] VITALS (18 sets, daily range): BP systolic 101–168; BP diastolic 59–92; PULSE 71–82; RESP 14–42; TEMP 98.4–99.7; O2SAT 91–99
[2016-10-03] MEDS: HEPARIN SODIUM - SQ 10,000 UNITS/ML VIAL SQ SCH ×3 (05:52→20:55)
[2016-10-03] MEDS: METOCLOPRAMIDE HCL 10 MG/2 ML VIAL IV PUSH SCH ×3 (05:52→20:54)
[2016-10-03] MEDS: LISINOPRIL 10 MG TAB PEG SCH (08:21)
[2016-10-03] MEDS: ASPIRIN 81 MG CHEW TAB PEG SCH (08:21)
[2016-10-03] MEDS: GLYCOPYRROLATE 1 MG TAB PEG SCH ×3 (08:21→17:15)
[2016-10-03] MEDS: CARVEDILOL 12.5 MG TAB PEG SCH ×2 (08:21→20:55)
[2016-10-03] MEDS: PANTOPRAZOLE SODIUM 40 MG VIAL IV PUSH SCH (08:21)
[2016-10-03] MEDS: BENZTROPINE MESYLATE 1 MG TAB PEG SCH ×2 (08:21→20:55)
[2016-10-03] MEDS: SODIUM CHLORIDE 0.9% FLUSH 10 ML FLUSH IV FLUSH SCH ×3 (08:22→20:55)
--- NOTE | 2016-10-03 09:13 | HHI.PR ---
Review/Management Diagnosis severe encepjhalopathy with PLEDS on EEG. No clinical seizures Diagnosis/Plan: Subjective Subjective Comments No acute events reported Active Medications Current Medications Medications (Trade) Dose Ordered Sig/Harry Route Start Time Stop Time Status Last Admin (NS Flush) 2 ml UNSCH PRN IV FLUSH 09/20/16 22:30 09/30/16 08:17 (NS Flush) 2 ml BID IV FLUSH 09/21/16 09:00 10/03/16 08:22 (Narcan Inj) 0.4 mg UNSCH PRN IV 09/20/16 22:30 (Tylenol) 650 mg Q6HR PRN PEG 09/21/16 01:30 09/26/16 17:50 (Aspirin Chew) 81 mg DAILY PEG 09/21/16 09:00 10/03/16 08:21 (Dulcolax Supp) 10 mg DAILY PRN RECTAL 09/21/16 01:30 (Ativan) 2 mg Q8HR PRN PEG 09/21/16 01:30 (Zofran Inj) 4 mg Q4HR PRN IV PUSH 09/21/16 01:30 (D50w (Vial) Inj) 25 ml UNSCH PRN IV PUSH 09/21/16 01:30 (Glucagon Inj) 1 mg UNSCH PRN OTHER 09/21/16 01:30 (Protonix Inj) 40 mg DAILY IV PUSH 09/21/16 10:01 10/03/16 08:21 (Cogentin) 1 mg BID PEG 09/21/16 21:00 10/03/16 08:21 (Robinul) 1 mg TID PEG 09/21/16 13:00 10/03/16 08:21 (Heparin Inj) 5,000 units Q8HR SQ 09/21/16 14:00 10/03/16 05:52 (Reglan Inj) 5 mg Q8HR IV PUSH 09/21/16 14:00 10/03/16 05:52 (NS Flush) See Protocol DAILY IV FLUSH 09/23/16 09:00 10/02/16 09:00 (NS Flush) See Protocol UNSCH PRN IV FLUSH 09/22/16 13:45 (Heparin Central Flush) See Protocol DAILY IV FLUSH 09/23/16 09:00 10/03/16 08:22 (Heparin Central Flush) See Protocol UNSCH PRN IV FLUSH 09/22/16 13:45 Sodium Chloride UNSCH PRN IV FLUSH 09/22/16 13:45 (NS 1000 ml Inj) 1,000 ml @ 0 mls/hr Q0M IV 09/22/16 17:30 09/26/16 08:14 (Trandate Inj) 10 mg Q4H PRN IV PUSH 09/23/16 14:00 09/26/16 17:13 (Coreg) 12.5 mg BID PEG 09/24/16 15:00 10/03/16 08:21 (Prinivil) 10 mg DAILY PEG 09/24/16 14:45 10/03/16 08:21 Allergies Allergies Coded Allergies Penicillin (Verified Allergy, Unknown, 06/30/16) *MDRO Multi-Drug Resistant Organism (Verified Adverse Reaction, Unknown, MRSA , 07/03/16) Codeine (Verified Adverse Reaction, Unknown, Anaphylaxis, 06/30/16) Exam I&O / VS 10/02/16 10/02/16 10/03/16 14:59 22:59 06:59 Intake Total 713 ml 635 ml Output Total 775 ml 1500 ml Balance -62 ml -865 ml Intake Oral 0 ml IV Total 0 ml Tube Feeding 593 ml 575 ml Tube Irrigant 120 ml Other 60 ml Output Urine Total 775 ml 1500 ml # Bowel Movements 0 0 Vital Signs Date Time Temp Pulse Resp B/P Pulse Ox O2 Delivery O2 Flow Rate FiO2 10/03/16 06:00 74 10/03/16 04:00 35 10/03/16 04:00 99.0 82 22 105/59 97 10/03/16 04:00 99 Mechanical Ventilator 35 10/03/16 04:00 82 10/03/16 02:00 72 10/03/16 00:00 99.7 78 24 113/65 97 10/03/16 00:00 99 Mechanical Ventilator 35 10/03/16 00:00 35 10/03/16 00:00 79 10/02/16 22:00 85 10/02/16 21:05 98 T-piece 35 10/02/16 20:00 35 10/02/16 20:00 99 Mechanical Ventilator 35 10/02/16 20:00 99.8 83 26 147/70 100 10/02/16 20:00 83 10/02/16 18:00 87 10/02/16 16:00 35 10/02/16 16:00 87 10/02/16 16:00 99.7 87 29 129/63 99 10/02/16 16:00 99 Mechanical Ventilator 35 10/02/16 14:00 89 10/02/16 12:00 35 10/02/16 12:00 98 Mechanical Ventilator 35 10/02/16 12:00 100.1 89 27 111/56 98 10/02/16 12:00 89 10/02/16 10:00 88 10/02/16 09:58 99 35 Exam Comments nonresponsive PERRL Motor-no spontaneous limb movement. No tonic clonic activity Objective Micro and Labs Laboratory Tests Test 10/02/16 09:30 Urine Color YELLOW Urine Turbidity CLEAR Urine pH 7.5 Urine Specific [place] 1.018 Urine Protein NEG Urine Glucose (UA) NEG Urine Ketones NEG Urine Occult Blood NEG Urine Nitrite NEG Urine Bilirubin NEG Urine Urobilinogen 2.0 Urine Leukocyte Esterase SMALL Urine RBC 1 Urine WBC 15 Urine Bacteria RARE Urine Mucus FEW Urine Yeast (Budding) OCC Microscopic Urinalysis Comment CULTURE INDICATED Date/Time Procedure Status Source Growth 10/02/16 16:02 Aerobic Blood Culture Received Blood Peripheral Pending 10/02/16 16:02 Anaerobic Blood Culture Received Blood Peripheral Pending 10/02/16 09:30 Urine Culture Received Urine Other Pending 10/02/16 09:30 Gram Stain - Final Resulted Sputum Endotracheal 10/02/16 09:30 Sputum Culture Resulted Sputum Endotracheal Pending James Prasad PhD October 03, 2016 09:13
[2016-10-03] MEDS: RESP: TOBRAMYCIN SULFATE 300 MG/5 ML NEB NEB SCH ×2 (10:09→20:08)
--- NOTE | 2016-10-03 15:50 | HHI.CCPN ---
Subjective Remarks/Hospital Course 09/22: Patient was transferred from [facility] to [facility] in [place] on July 01, 2016. He was admitted to our hospital on June 30, 2016. Patient is a trach dependent and PEG dependent patient since about 2010 when we first saw him at our hospital. In June of this year, he presented to our emergency room and was admitted to the cyanide pot tender service. He was having blood clots through his PEG tube as well with respiratory failure requiring ventilator support. He has had history of tracheomalacia with tracheal stent placed in [facility] about 2 years prior. Subsequent workup here in June revealed his tracheal stent 80%occlusion with debris versus mass. Therapeutic bronchoscopy was done here which shows near complete occlusion of tracheal stent with organized clots and mucous. He was managed overnight by cyanide pot tender team and was transferred to [facility] because of this tracheal stent occlusion with hemoptysis. Patient was managed at [facility] for this tracheal stent occlusion and underwent multiple bronchoscopies and tracheostomy revision and tracheal stent revision with new stent placement. He also had cardiac arrest while in hospital on August 13, 2016 and August 14, 2016. He required ventilator support during the hospitalization and currently on FiO2 of 28% through trach. He was managed there for pseudomonas pneumonia with colonization and MRSA from bronchial lavage. 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 He was also managed for massive distention of the colon suspicious for volvulus versus ileus. He was finally stabilized and managed on PCU service at present and transferred back to [facility] on 09/20/16 when he was admitted by the hospitalist service to the floor on [facility]. This morning patient was noted to be lethargic and an ABG revealed PCO2 in the 80s. He was transferred to [facility] with critical care consult being requested by Dr. Chen. He was placed on mechanical ventilation. I evaluated the patient shortly following his arrival. History was obtained by reviewing records and discussion with Dr. Chen. 09/23: Remains encephalopathic on mechanical ventilation via tracheostomy. Tube feeds Resumed yesterday and tolerating well currently. 09/24: Remains encephalopathic on mechanical ventilation via tracheostomy. Blood pressure running high. Increased Coreg and started lisinopril. 09/25: Remains encephalopathic, on mechanical ventilation via tracheostomy. Tolerating tube feeds. Continue C Pap trials daily. 09/26: Remains encephalopathic, on mechanical ventilation via tracheostomy. Having apneic episodes with C Pap trials today. Tolerating tube feeds. 09/27: Remains encephalopathic, and mechanical ventilation via tracheostomy. C Pap/T piece trials as tolerated. 09/28: Continues to remain encephalopathic. Unsuccessful CPAP trials, tolerating tube feeds minimal residuals. 09/29: Tmax 98.4. No change in neurological status. CPAP trials continued but unsuccessful. 09/30: Afebrile. Remains encephalopathic. Patient tolerating CPAP trials greater than 4 hours today. Urine output adequate IV fluids discontinued. 10/01: The patient is advancing on CPAP trials greater than 4 hours today. No change in neurological status. Urine output adequate IV fluids discontinued. 10/02: Family daughter request stating that Keppra be held and continues to refuse Depakote. The patient was maintained on CPAP trials for approximately 4 hours yesterday. The patient was noted to have an elevation in temperature, cultures were obtained. 10/03: Remains encephalopathic. Reconsultation with wound care nurse noted new left area of sacral decubitus, orders for treatment instituted. Keppra and Depakote were placed on hold on the monitor due to refusal from family to allow patient to receive medication. The patient continues on CPAP trials. Objective Vital Signs Date Time Temp Pulse Resp B/P Pulse Ox O2 Delivery O2 Flow Rate FiO2 10/03/16 14:00 76 10/03/16 12:00 T-Piece 35 10/03/16 12:00 98.4 18 130/77 98 Intake and Output 10/02/16 10/02/16 10/03/16 08:00 16:00 00:00 Intake Total 646 ml 713 ml 246 ml Output Total 520 ml 775 ml 1100 ml Balance 126 ml -62 ml -854 ml Result Diagram: 10/01/16 0450 10/01/16 0450 Imaging 09/22 CXR (portable) - personally reviewed: Tracheostomy in place, tracheal stent noted, good aeration bilateral lung casanova with prominent interstitial markings Objective Remarks Physical Exam GENERAL: This is an elderly gentleman, noncommunicative, trach dependent, PEG dependent SKIN: Sacral decubiti with wound packing and discharge HEAD: Atraumatic. Normocephalic. EYES: Left-sided ptosis No scleral icterus. No injection or drainage. ENT: Nose without bleeding, purulent drainage or septal hematoma Airway patent. Tracheostomy in place NECK: Trachea midline. No JVD CARDIOVASCULAR: Regular rate and rhythm without murmurs, gallops, or rubs. RESPIRATORY: On mechanical ventilation via tracheostomy, Bilaterally decreased air entry GASTROINTESTINAL: Abdomen soft, non-tender, nondistended.No guarding. MUSCULOSKELETAL: Bilateral lower extremity contracture. Atrophic. No calf asymmetry. NEUROLOGICAL: Spontaneously opens his eyes. However not really tracking. Does not follow any commands. Bilateral upper and lower extremity contractures with muscle atrophy. A/P Assessment and Plan Impression: Acute respiratory failure requiring mechanical ventilation Acute respiratory acidosis Hypotension : Resolved with fluid bolus. A/P Problem List: (1) Yodmk-et-mzftfmx respiratory failure ICD Code: J96.20 Status: Acute Plan: Patient with acute episode of hypoxemia into the 's, suspect aspiration. Continue mechanical ventilation. Vent bundle, bronchodilators as needed. Pulmonary following. Continue daily C PAP trials, consider trach collar trials (2) Hyperkalemia ICD Code: E87.5 Status: Acute Plan: Potassium elevated at 6.0 Given D50 and Regular insulin IV. 2 grams of IV calcium chloride and 40 mg of IV lasix on 09/22 Monitor BMP (3) Seizure disorder ICD Code: G40.909 Status: Chronic Plan: EEG done at [facility] showing epileptic discharges persistently. Negative MRI studies. Continue current anticonvulsants. Patient currently on Keppra 1500 mg via PEG twice a day. 09/22 daughter refusing Depakote and Keppra. Reviewed neurology consult and EEG. 10/02 still refusing Depakote and Keppra 09/28- Dr. Prasad-neurology, EEG showing PLEDs, no seizure activity (4) Tracheostomy in place ICD Code: Z93.0 Status: Chronic Plan: Continue with trach care, suctioning as needed, aspiration precautions. Continue tube feeds (Jevity) as tolerated. Check residuals. Continue Reglan TID (5) S/P percutaneous endoscopic gastrostomy (PEG) tube placement ICD Code: Z93.1 Status: Chronic Plan: Patient with high residuals on 09/21 - started on Reglan IV scheduled. (6) H/O cardiac arrest ICD Code: Z86.74 Status: Chronic Plan: Patient has history of cardiac arrest on August 13 on 08/14/16. Continue to monitor on telemetry. Palliative care consulted to help address goals of care and establish a clear CODE STATUS. At [facility] the patient had a limited DO NOT RESUSCITATE. 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 (8) Dementia ICD Code: F03.90 Status: Chronic Plan: Patient currently on Cogentin, Ativan as needed for anxiety. (9) Schizophrenia ICD Code: F20.9 Status: Chronic Plan: Not on any medications at this point. (10) Diabetes mellitus type 2, controlled ICD Code: E11.9 Status: Chronic Plan: Diet controlled. Blood sugar seems to be stable. Not on sliding scale. (11) CAD (coronary artery disease) ICD Code: I25.10 Status: Chronic Plan: Continue aspirin 81 mg. (12) Encephalopathy acute ICD Code: G93.40 Status: Acute Plan: Unclear what baseline is since patient had 2 cardiac arrests over at [facility]. Patient is more lethargic due to Co2 retention and anoxic encephalopathy. Placed on mechanical ventilation 09/22. Prophylaxis GI prophylaxis: Continue PPI. DVT plexus: SCDs, heparin SQ Access: PICC line. Patient remains full CODE STATUS at this time. Case management following for LTAC placement for vent weaning. Dispo: Level 3 Discussed with MULTIPLE COIL WINDER at bedside. Physician Ashli Vasquez MD October 03, 2016 15:50
[2016-10-03] MEDS: TAMSULOSIN HCL 0.4 MG CAP PO SCH (16:00)
--- NOTE | 2016-10-03 19:23 | HHI.PR ---
Subjective Remarks 80 YOAA male multiple co morbid condition VDRF,Trach, tracheal stent no fever Tolerates Trach collar Daughter refused sz meds Objective Vital Signs Vital Signs Date Time Temp Pulse Resp B/P Pulse Ox O2 Delivery O2 Flow Rate FiO2 10/03/16 18:00 74 10/03/16 16:00 73 10/03/16 16:00 T-Piece 35 10/03/16 16:00 98.7 72 18 112/69 97 10/03/16 14:00 74 37 118/66 98 10/03/16 14:00 76 10/03/16 13:00 76 39 132/78 98 10/03/16 12:00 T-Piece 35 10/03/16 12:00 98.4 74 18 130/77 98 10/03/16 12:00 75 10/03/16 11:00 75 42 133/73 98 10/03/16 10:08 94 T-piece 35 10/03/16 10:00 75 33 104/60 92 10/03/16 10:00 71 10/03/16 09:00 78 40 101/60 93 10/03/16 08:00 T-Piece 35 10/03/16 08:00 98.7 75 14 101/60 91 10/03/16 08:00 75 10/03/16 07:00 82 40 136/77 95 10/03/16 06:00 74 10/03/16 04:00 35 10/03/16 04:00 99.0 82 22 105/59 97 10/03/16 04:00 99 Mechanical Ventilator 35 10/03/16 04:00 82 10/03/16 02:00 72 10/03/16 00:00 99.7 78 24 113/65 97 10/03/16 00:00 99 Mechanical Ventilator 35 10/03/16 00:00 35 10/03/16 00:00 79 10/02/16 22:00 85 10/02/16 21:05 98 T-piece 35 10/02/16 20:00 35 10/02/16 20:00 99 Mechanical Ventilator 35 10/02/16 20:00 99.8 83 26 147/70 100 10/02/16 20:00 83 I/O 10/02/16 10/02/16 10/02/16 10/03/16 10/03/16 10/03/16 06:59 14:59 22:59 06:59 14:59 22:59 Intake Total 646 ml 713 ml 635 ml 602 ml Output Total 520 ml 775 ml 1500 ml 1400 ml Balance 126 ml -62 ml -865 ml -798 ml Intake Oral 0 ml IV Total 0 ml Tube Feeding 586 ml 593 ml 575 ml 482 ml Tube Irrigant 60 ml 120 ml Other 60 ml 120 ml Output Urine Total 520 ml 775 ml 1500 ml 1400 ml # Voids 0 # Bowel Movements 0 0 0 0 Result Diagram: 10/01/1644910/01/16449 Objective Remarks GENERAL: Elderly male, on Vent SKIN: Warm and dry. HEAD: Normocephalic. EYES: No scleral icterus. No injection or drainage. NECK: Supple, trachea midline. No JVD or lymphadenopathy. Has trach CARDIOVASCULAR: Regular rate and rhythm without murmurs, gallops, or rubs. RESPIRATORY: Breath sounds equal bilaterally. No accessory muscle use. GASTROINTESTINAL: Abdomen soft, non-tender, nondistended. PEG tube in place MUSCULOSKELETAL: No cyanosis, or edema. BACK: Nontender without obvious deformity. No CVA tenderness. A/P Assessment and Plan VDRF Trach Tracheal stent Sz disorder S/P AAA repair S/P cardiac arrest PLAN: Trach care Aerosol nebs TF Cont trach collar Daron Rock MD October 03, 2016 19:23
[2016-10-04] VITALS (7 sets, daily range): BP systolic 137–156; BP diastolic 78–98; PULSE 72–79; RESP 18–29; TEMP 98.5–98.8; O2SAT 95–100
[2016-10-04] MEDS: HEPARIN SODIUM - SQ 10,000 UNITS/ML VIAL SQ SCH ×3 (05:34→21:35)
[2016-10-04] MEDS: METOCLOPRAMIDE HCL 10 MG/2 ML VIAL IV PUSH SCH ×3 (05:35→21:34)
[2016-10-04] MEDS: RESP: TOBRAMYCIN SULFATE 300 MG/5 ML NEB NEB SCH ×2 (08:00→21:42)
[2016-10-04 08:08] LABS: HEMATOCRIT 27.8 % (39.0-51.0); MEAN CELL VOLUME 97.2 FL (80.0-100.0); MEAN CORPUSCULAR HEMOGLOBIN 30.9 PG (27.0-34.0); MEAN CORPUSCULAR HGB CONC 31.8 % (32.0-36.0); PLATELET COUNT 257 TH/MM3 (150-450); RED BLOOD COUNT 2.86 MIL/MM3 (4.50-5.90); RED CELL DISTRIBUTION WIDTH 21.2 % (11.6-17.2); REVIEW FLAG FINAL; WHITE BLOOD COUNT 6.8 TH/MM3 (4.0-11.0)
[2016-10-04 08:09] LABS: BICARBONATE 32.5 MEQ/L (21.0-32.0); MAGNESIUM 2.4 MG/DL (1.5-2.5)
--- NOTE | 2016-10-04 08:57 | HHI.PR ---
Review/Management Diagnosis severe encepjhalopathy. No clinical seizures Diagnosis/Plan: Subjective Subjective Comments No acute events reported No sz Active Medications Current Medications Medications (Trade) Dose Ordered Sig/Harry Route Start Time Stop Time Status Last Admin (NS Flush) 2 ml UNSCH PRN IV FLUSH 09/20/16 22:30 09/30/16 08:17 (NS Flush) 2 ml BID IV FLUSH 09/21/16 09:00 10/03/16 20:55 (Narcan Inj) 0.4 mg UNSCH PRN IV 09/20/16 22:30 (Tylenol) 650 mg Q6HR PRN PEG 09/21/16 01:30 09/26/16 17:50 (Aspirin Chew) 81 mg DAILY PEG 09/21/16 09:00 10/03/16 08:21 (Dulcolax Supp) 10 mg DAILY PRN RECTAL 09/21/16 01:30 (Ativan) 2 mg Q8HR PRN PEG 09/21/16 01:30 (Zofran Inj) 4 mg Q4HR PRN IV PUSH 09/21/16 01:30 (D50w (Vial) Inj) 25 ml UNSCH PRN IV PUSH 09/21/16 01:30 (Glucagon Inj) 1 mg UNSCH PRN OTHER 09/21/16 01:30 (Protonix Inj) 40 mg DAILY IV PUSH 09/21/16 10:01 10/03/16 08:21 (Cogentin) 1 mg BID PEG 09/21/16 21:00 10/03/16 20:55 (Robinul) 1 mg TID PEG 09/21/16 13:00 10/03/16 17:15 (Heparin Inj) 5,000 units Q8HR SQ 09/21/16 14:00 10/04/16 05:34 (Reglan Inj) 5 mg Q8HR IV PUSH 09/21/16 14:00 10/04/16 05:35 (NS Flush) See Protocol DAILY IV FLUSH 09/23/16 09:00 10/02/16 09:00 (NS Flush) See Protocol UNSCH PRN IV FLUSH 09/22/16 13:45 (Heparin Central Flush) See Protocol DAILY IV FLUSH 09/23/16 09:00 10/03/16 08:22 (Heparin Central Flush) See Protocol UNSCH PRN IV FLUSH 09/22/16 13:45 Sodium Chloride UNSCH PRN IV FLUSH 09/22/16 13:45 (NS 1000 ml Inj) 1,000 ml @ 0 mls/hr Q0M IV 09/22/16 17:30 09/26/16 08:14 (Trandate Inj) 10 mg Q4H PRN IV PUSH 09/23/16 14:00 09/26/16 17:13 (Coreg) 12.5 mg BID PEG 09/24/16 15:00 10/03/16 20:55 (Prinivil) 10 mg DAILY PEG 09/24/16 14:45 10/03/16 08:21 Allergies Allergies Coded Allergies Penicillin (Verified Allergy, Unknown, 06/30/16) *MDRO Multi-Drug Resistant Organism (Verified Adverse Reaction, Unknown, MRSA , 07/03/16) Codeine (Verified Adverse Reaction, Unknown, Anaphylaxis, 06/30/16) Exam I&O / VS 10/03/16 10/03/16 10/04/16 14:59 22:59 06:59 Intake Total 602 ml 532 ml 520 ml Output Total 1400 ml 800 ml 850 ml Balance -798 ml -268 ml -330 ml Tube Feeding 482 ml 412 ml 460 ml Other 120 ml 120 ml 60 ml Output Urine Total 1400 ml 800 ml 850 ml # Bowel Movements 0 0 1 Vital Signs Date Time Temp Pulse Resp B/P Pulse Ox O2 Delivery O2 Flow Rate FiO2 10/04/16 06:00 75 10/04/16 04:00 98.7 77 18 156/98 98 10/04/16 04:00 74 10/04/16 04:00 T-Piece 10/04/16 02:00 79 10/04/16 00:00 T-Piece 10/04/16 00:00 98.8 77 18 145/85 96 10/04/16 00:00 74 10/03/16 22:00 71 10/03/16 20:08 99 T-piece 35 10/03/16 20:00 98.9 74 18 168/92 98 10/03/16 20:00 T-Piece 28 10/03/16 20:00 74 10/03/16 18:00 74 10/03/16 16:00 73 10/03/16 16:00 T-Piece 35 10/03/16 16:00 98.7 72 18 112/69 97 10/03/16 14:00 74 37 118/66 98 10/03/16 14:00 76 10/03/16 13:00 76 39 132/78 98 10/03/16 12:00 T-Piece 35 10/03/16 12:00 98.4 74 18 130/77 98 10/03/16 12:00 75 10/03/16 11:00 75 42 133/73 98 10/03/16 10:08 94 T-piece 35 10/03/16 10:00 75 33 104/60 92 10/03/16 10:00 71 10/03/16 09:00 78 40 101/60 93 Exam Comments nonresponsive PERRL Motor-no spontaneous limb movement. No tonic clonic activity Objective Micro and Labs Laboratory Tests Test 10/04/16 06:28 White Blood Count 6.8 Red Blood Count 2.86 Hemoglobin 8.8 Hematocrit 27.8 Mean Corpuscular Volume 97.2 Mean Corpuscular Hemoglobin 30.9 Mean Corpuscular Hemoglobin 31.8 Concent Red Cell Distribution Width 21.2 Platelet Count 257 Mean Platelet Volume 8.5 Sodium Level 134 Potassium Level 5.0 Chloride Level 96 Carbon Dioxide Level 32.5 Anion Gap 6 Blood Urea Nitrogen 17 Creatinine 0.65 Estimat Glomerular Filtration 144 Rate Random Glucose 127 Calcium Level 9.1 Phosphorus Level 3.3 Magnesium Level 2.4 Date/Time Procedure Status Source Growth 10/02/16 16:02 Aerobic Blood Culture - Preliminary Resulted Blood Peripheral NO GROWTH IN 1 DAY 10/02/16 16:02 Anaerobic Blood Culture - Preliminary Resulted Blood Peripheral NO GROWTH IN 1 DAY 10/02/16 09:30 Urine Culture - Preliminary Resulted Urine Other Yeast-Id To Follow 10/02/16 09:30 Gram Stain - Final Resulted Sputum Endotracheal 10/02/16 09:30 Sputum Culture - Preliminary Resulted Sputum Endotracheal HEAVY GROWTH NORMAL RESPIRATORY KEVIN... James Prasad PhD MD October 04, 2016 08:57
[2016-10-04] MEDS: SODIUM CHLORIDE 0.9% FLUSH 10 ML FLUSH IV FLUSH SCH ×3 (09:00→21:00)
[2016-10-04] MEDS: BENZTROPINE MESYLATE 1 MG TAB PEG SCH ×3 (09:00→21:00)
[2016-10-04] MEDS: ASPIRIN 81 MG CHEW TAB PEG SCH (09:00)
[2016-10-04] MEDS: GLYCOPYRROLATE 1 MG TAB PEG SCH ×3 (12:22→18:15)
[2016-10-04] MEDS: CARVEDILOL 12.5 MG TAB PEG SCH ×2 (15:04→21:34)
[2016-10-04] MEDS: LISINOPRIL 10 MG TAB PEG SCH (15:05)
--- NOTE | 2016-10-04 17:08 | HHI.CCPN ---
Subjective Remarks/Hospital Course 09/22: Patient was transferred from [facility] to [facility] in [place] on July 01, 2016. He was admitted to our hospital on June 30, 2016. Patient is a trach dependent and PEG dependent patient since about 2010 when we first saw him at our hospital. In June of this year, he presented to our emergency room and was admitted to the architecture consultant service. He was having blood clots through his PEG tube as well with respiratory failure requiring ventilator support. He has had history of tracheomalacia with tracheal stent placed in [facility] about 2 years prior. Subsequent workup here in June revealed his tracheal stent 80%occlusion with debris versus mass. Therapeutic bronchoscopy was done here which shows near complete occlusion of tracheal stent with organized clots and mucous. He was managed overnight by architecture consultant team and was transferred to [facility] because of this tracheal stent occlusion with hemoptysis. Patient was managed at [facility] for this tracheal stent occlusion and underwent multiple bronchoscopies and tracheostomy revision and tracheal stent revision with new stent placement. He also had cardiac arrest while in hospital on August 13, 2016 and August 14, 2016. He required ventilator support during the hospitalization and currently on FiO2 of 28% through trach. He was managed there for pseudomonas pneumonia with colonization and MRSA from bronchial lavage. 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 He was also managed for massive distention of the colon suspicious for volvulus versus ileus. He was finally stabilized and managed on PCU service at present and transferred back to [facility] on 09/20/16 when he was admitted by the hospitalist service to the floor on [facility]. This morning patient was noted to be lethargic and an ABG revealed PCO2 in the 80s. He was transferred [place] [facility] [place] critical care consult being requested by Dr. Chen. He was placed on mechanical ventilation. I evaluated the patient shortly following his arrival. History was obtained by reviewing records and discussion with Dr. Chen. 09/23: Remains encephalopathic on mechanical ventilation via tracheostomy. Tube feeds Resumed yesterday and tolerating well currently. 09/24: Remains encephalopathic on mechanical ventilation via tracheostomy. Blood pressure running high. Increased Coreg and started lisinopril. 09/25: Remains encephalopathic, on mechanical ventilation via tracheostomy. Tolerating tube feeds. Continue C Pap trials daily. 09/26: Remains encephalopathic, on mechanical ventilation via tracheostomy. Having apneic episodes with C Pap trials today. Tolerating tube feeds. 09/27: Remains encephalopathic, and mechanical ventilation via tracheostomy. C Pap/T piece trials as tolerated. 09/28: Continues to remain encephalopathic. Unsuccessful CPAP trials, tolerating tube feeds minimal residuals. 09/29: Tmax 98.4. No change in neurological status. CPAP trials continued but unsuccessful. 09/30: Afebrile. Remains encephalopathic. Patient tolerating CPAP trials greater than 4 hours today. Urine output adequate IV fluids discontinued. 10/01: The patient is advancing on CPAP trials greater than 4 hours today. No change in neurological status. Urine output adequate IV fluids discontinued. 10/02: Family daughter request stating that Keppra be held and continues to refuse Depakote. The patient was maintained on CPAP trials for approximately 4 hours yesterday. The patient was noted to have an elevation in temperature, cultures were obtained. 10/03: Remains encephalopathic. Reconsultation with wound care nurse noted new left area of sacral decubitus, orders for treatment instituted. Keppra and Depakote were placed on hold on the monitor due to refusal from family to allow patient to receive medication. The patient continues on CPAP trials. 10/04: The patient's daughter was noted to be at the bedside. New wound care instructions were implemented. Patient was noted to have 2 lesions on the posterior occiput that will be reevaluated by the wound care nurse. The patient remains encephalopathic. Objective Vital Signs Date Time Temp Pulse Resp B/P Pulse Ox O2 Delivery O2 Flow Rate FiO2 10/04/16 09:13 99 T-piece 6.00 35 10/04/16 06:00 75 10/04/16 04:00 98.7 18 156/98 Intake and Output 10/03/16 10/03/16 10/04/16 08:00 16:00 00:00 Intake Total 389 ml 602 ml 532 ml Output Total 400 ml 1400 ml 800 ml Balance -11 ml -798 ml -268 ml Result Diagram: 10/04/1628 10/04/16627 Other Results Microbiology Date/Time Procedure Status Source Growth 10/02/16 09:30 Gram Stain - Final Complete Sputum Endotracheal 10/02/16 09:30 Sputum Culture - Final Complete Sputum Endotracheal HEAVY GROWTH NORMAL RESPIRATORY KEVIN 10/02/16 09:30 Urine Culture - Final Complete Urine Other [facility] 09/22 CXR (portable) - personally reviewed: Tracheostomy in place, tracheal stent noted, good aeration bilateral lung casanova with prominent interstitial markings Objective Remarks Physical Exam GENERAL: This is an elderly gentleman, noncommunicative, trach dependent, PEG dependent SKIN: Sacral decubiti with wound packing. 2 lesions occipital area, no drainage HEAD: Atraumatic. Normocephalic. EYES: Left-sided ptosis No scleral icterus. No injection or drainage. ENT: Nose without bleeding, purulent drainage or septal hematoma Airway patent. Tracheostomy in place NECK: Trachea midline. No JVD CARDIOVASCULAR: Regular rate and rhythm without murmurs, gallops, or rubs. RESPIRATORY: On mechanical ventilation via tracheostomy, Bilaterally decreased air entry GASTROINTESTINAL: Abdomen soft, non-tender, nondistended.No guarding. MUSCULOSKELETAL: Bilateral lower extremity contracture. Atrophic. No calf asymmetry. NEUROLOGICAL: Spontaneously opens his eyes. However not really tracking. Does not follow any commands. Bilateral upper and lower extremity contractures with muscle atrophy. A/P Assessment and Plan Impression: Acute respiratory failure requiring mechanical ventilation Acute respiratory acidosis Hypotension : Resolved with fluid bolus. A/P Problem List: (1) [id number] respiratory failure ICD Code: J96.20 Status: Acute Plan: Patient with acute episode of hypoxemia into the 80's, suspect aspiration. Continue mechanical ventilation. Vent bundle, bronchodilators as needed. Pulmonary following. Continue daily C PAP trials now lasting approximately 4 hours, consider trach collar trials (2) Hyperkalemia ICD Code: E87.5 Status: Acute Plan: Potassium elevated at 6.0 Given D50 and Regular insulin IV. 2 grams of IV calcium chloride and 40 mg of IV lasix on 09/22 Monitor BMP, lab draws every 2-3 days patient stable (3) Seizure disorder ICD Code: G40.909 Status: Chronic Plan: EEG done at [facility] showing epileptic discharges persistently. Negative MRI studies. 09/22 daughter refusing Depakote and Keppra. Reviewed neurology consult and EEG. 10/02 still refusing Depakote and Keppra 09/28- Dr. Prasad-neurology, EEG showing PLEDs, no seizure activity (4) Tracheostomy in place ICD Code: Z93.0 Status: Chronic Plan: Continue with trach care, suctioning as needed, aspiration precautions. Continue tube feeds (Jevity) as tolerated. Check residuals. Continue Reglan TID (5) S/P percutaneous endoscopic gastrostomy (PEG) tube placement ICD Code: Z93.1 Status: Chronic Plan: Patient with high residuals on 09/21 - started on Reglan IV scheduled. (6) H/O cardiac arrest ICD Code: Z86.74 Status: Chronic Plan: Patient has history of cardiac arrest on August 13 on 08/14/16. Continue to monitor on telemetry. Palliative care consulted to help address goals of care and establish a clear CODE STATUS. At [facility] the patient had a limited DO NOT RESUSCITATE. 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 (8) Dementia ICD Code: F03.90 Status: Chronic Plan: Patient currently on Cogentin, Ativan as needed for anxiety. (9) Schizophrenia ICD Code: F20.9 Status: Chronic Plan: Not on any medications at this point. (10) Diabetes mellitus type 2, controlled ICD Code: E11.9 Status: Chronic Plan: Diet controlled. Blood sugar seems to be stable. Not on sliding scale. (11) CAD (coronary artery disease) ICD Code: I25.10 Status: Chronic Plan: Continue aspirin 81 mg. (12) Encephalopathy acute ICD Code: G93.40 Status: Acute Plan: Unclear what baseline is since patient had 2 cardiac arrests over at [facility]. Patient is more lethargic due to Co2 retention and anoxic encephalopathy. Placed on mechanical ventilation 09/22. Prophylaxis GI prophylaxis: Continue PPI. DVT plexus: SCDs, heparin SQ Access: PICC line. Patient remains full CODE STATUS at this time. Case management following for LTAC placement for vent weaning. Dispo: Level 3 Discussed with patient's daughter this morning, and ANESTHESIA ASSOCIATE at bedside. Physician Ashli Vasquez MD October 04, 2016 17:08
[2016-10-04] MEDS: TAMSULOSIN HCL 0.4 MG CAP PO SCH (18:15)
[2016-10-04] MEDS: PANTOPRAZOLE SODIUM 40 MG VIAL IV PUSH SCH (18:15)
--- NOTE | 2016-10-04 18:56 | HHI.PR ---
Subjective Remarks 80 YOAA male multiple co morbid condition VDRF,Trach, tracheal stent no fever Tolerates Trach collar Daughter refused sz meds Wound care following Objective Vital Signs Vital Signs Date Time Temp Pulse Resp B/P Pulse Ox O2 Delivery O2 Flow Rate FiO2 10/04/16 09:13 99 T-piece 6.00 35 10/04/16 08:00 T-Piece 28 10/04/16 06:00 75 10/04/16 04:00 98.7 77 18 156/98 98 10/04/16 04:00 74 10/04/16 04:00 T-Piece 28 10/04/16 02:00 79 10/04/16 00:00 T-Piece 10/04/16 00:00 98.8 77 18 145/85 96 10/04/16 00:00 74 10/03/16 22:00 71 10/03/16 20:08 99 T-piece 35 10/03/16 20:00 98.9 74 18 168/92 98 10/03/16 20:00 T-Piece 10/03/16 20:00 74 I/O 10/03/16 10/03/16 10/03/16 10/04/16 10/04/16 10/04/16 07:00 15:00 23:00 07:00 15:00 23:00 Intake Total 389 ml 602 ml 532 ml 520 ml 677 ml Output Total 400 ml 1400 ml 800 ml 850 ml 1275 ml Balance -11 ml -798 ml -268 ml -330 ml -598 ml Intake Oral 0 ml IV Total 6 ml Tube Feeding 329 ml 482 ml 412 ml 460 ml 551 ml Other 60 ml 120 ml 120 ml 60 ml 120 ml Output Urine Total 400 ml 1400 ml 800 ml 850 ml 1275 ml # Bowel Movements 0 0 0 1 1 Result Diagram: 10/04/1662710/04/16627 Objective Remarks GENERAL: Elderly male, on Vent SKIN: Warm and dry. HEAD: Normocephalic. EYES: No scleral icterus. No injection or drainage. NECK: Supple, trachea midline. No JVD or lymphadenopathy. Has trach CARDIOVASCULAR: Regular rate and rhythm without murmurs, gallops, or rubs. RESPIRATORY: Breath sounds equal bilaterally. No accessory muscle use. GASTROINTESTINAL: Abdomen soft, non-tender, nondistended. PEG tube in place MUSCULOSKELETAL: No cyanosis, or edema. BACK: Nontender without obvious deformity. No CVA tenderness. A/P Assessment and Plan VDRF Trach Tracheal stent Sz disorder S/P AAA repair S/P cardiac arrest PLAN: Trach care Aerosol nebs TF Cont trach collar Wound care Daron Rock MD October 04, 2016 18:56
[2016-10-05] VITALS (10 sets, daily range): BP systolic 135–163; BP diastolic 78–97; PULSE 78–95; RESP 24–41; TEMP 98.3–98.9; O2SAT 94–99
[2016-10-05] MEDS: METOCLOPRAMIDE HCL 10 MG/2 ML VIAL IV PUSH SCH ×3 (05:03→20:59)
[2016-10-05] MEDS: HEPARIN SODIUM - SQ 10,000 UNITS/ML VIAL SQ SCH ×3 (05:03→21:00)
[2016-10-05] MEDS: RESP: TOBRAMYCIN SULFATE 300 MG/5 ML NEB NEB SCH ×2 (08:00→22:29)
[2016-10-05] MEDS: ASPIRIN 81 MG CHEW TAB PEG SCH (08:49)
[2016-10-05] MEDS: GLYCOPYRROLATE 1 MG TAB PEG SCH ×3 (08:49→17:28)
[2016-10-05] MEDS: SODIUM CHLORIDE 0.9% FLUSH 10 ML FLUSH IV FLUSH SCH ×3 (08:49→21:00)
[2016-10-05] MEDS: CARVEDILOL 12.5 MG TAB PEG SCH ×2 (08:49→21:00)
[2016-10-05] MEDS: BENZTROPINE MESYLATE 1 MG TAB PEG SCH ×2 (08:49→21:00)
[2016-10-05] MEDS: LISINOPRIL 10 MG TAB PEG SCH (08:49)
[2016-10-05] MEDS: PANTOPRAZOLE SODIUM 40 MG VIAL IV PUSH SCH (08:51)
--- NOTE | 2016-10-05 15:38 | HHI.CCPN ---
Subjective Remarks/Hospital Course 09/22: Patient was transferred from [facility] to [facility] in [place] on July 01, 2016. He was admitted to our hospital on June 30, 2016. Patient is a trach dependent and PEG dependent patient since about 2010 when we first saw him at our hospital. In June of this year, he presented to our emergency room and was admitted to the insurance office manager service. He was having blood clots through his PEG tube as well with respiratory failure requiring ventilator support. He has had history of tracheomalacia with tracheal stent placed in [facility] about 2 years prior. Subsequent workup here in June revealed his tracheal stent 80%occlusion with debris versus mass. Therapeutic bronchoscopy was done here which shows near complete occlusion of tracheal stent with organized clots and mucous. He was managed overnight by insurance office manager team and was transferred to [facility] because of this tracheal stent occlusion with hemoptysis. Patient was managed at [facility] for this tracheal stent occlusion and underwent multiple bronchoscopies and tracheostomy revision and tracheal stent revision with new stent placement. He also had cardiac arrest while in hospital on August 13, 2016 and August 14, 2016. He required ventilator support during the hospitalization and currently on FiO2 of 28% through trach. He was managed there for pseudomonas pneumonia with colonization and MRSA from bronchial lavage. 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 He was also managed for massive distention of the colon suspicious for volvulus versus ileus. He was finally stabilized and managed on PCU service at present and transferred back to [facility] on 09/20/16 when he was admitted by the hospitalist service to the floor on [facility]. This morning patient was noted to be lethargic and an ABG revealed PCO2 in the 80s. He was transferred to [facility] with critical care consult being requested by Dr. Chen. He was placed on mechanical ventilation. I evaluated the patient shortly following his arrival. History was obtained by reviewing records and discussion with Dr. Chen. 09/23: Remains encephalopathic on mechanical ventilation via tracheostomy. Tube feeds Resumed yesterday and tolerating well currently. 09/24: Remains encephalopathic on mechanical ventilation via tracheostomy. Blood pressure running high. Increased Coreg and started lisinopril. 09/25: Remains encephalopathic, on mechanical ventilation via tracheostomy. Tolerating tube feeds. Continue C Pap trials daily. 09/26: Remains encephalopathic, on mechanical ventilation via tracheostomy. Having apneic episodes with C Pap trials today. Tolerating tube feeds. 09/27: Remains encephalopathic, and mechanical ventilation via tracheostomy. C Pap/T piece trials as tolerated. 09/28: Continues to remain encephalopathic. Unsuccessful CPAP trials, tolerating tube feeds minimal residuals. 09/29: Tmax 98.4. No change in neurological status. CPAP trials continued but unsuccessful. 09/30: Afebrile. Remains encephalopathic. Patient tolerating CPAP trials greater than 4 hours today. Urine output adequate IV fluids discontinued. 10/01: The patient is advancing on CPAP trials greater than 4 hours today. No change in neurological status. Urine output adequate IV fluids discontinued. 10/02: Family daughter request stating that Keppra be held and continues to refuse Depakote. The patient was maintained on CPAP trials for approximately 4 hours yesterday. The patient was noted to have an elevation in temperature, cultures were obtained. 10/03: Remains encephalopathic. Reconsultation with wound care nurse noted new left area of sacral decubitus, orders for treatment instituted. Keppra and Depakote were placed on hold on the monitor due to refusal from family to allow patient to receive medication. The patient continues on CPAP trials. 10/04: The patient's daughter was noted to be at the bedside. New wound care instructions were implemented. Patient was noted to have 2 lesions on the posterior occiput that will be reevaluated by the wound care nurse. The patient remains encephalopathic. 10/05: Afebrile. The patient was noted to have [place] tropicalis and urine cultures, Diflucan initiated. The patient remains encephalopathic. The patient continues on CPAP trials. Objective Vital Signs Date Time Temp Pulse Resp B/P Pulse Ox O2 Delivery O2 Flow Rate FiO2 10/05/16 12:00 83 10/05/16 12:00 T-Piece 28 10/05/16 12:00 98.6 41 145/87 94 10/05/16 09:31 5.00 Intake and Output 10/04/16 10/04/16 10/05/16 08:00 16:00 00:00 Intake Total 520 ml 677 ml 482 ml Output Total 850 ml 1275 ml 600 ml Balance -330 ml -598 ml -118 ml Result Diagram: 10/04/16 0628 10/04/16 0628 Imaging 09/22 CXR (portable) - personally reviewed: Tracheostomy in place, tracheal stent noted, good aeration bilateral lung casanova with prominent interstitial markings Objective Remarks Physical Exam GENERAL: This is an elderly gentleman, noncommunicative, trach dependent, PEG dependent SKIN: Sacral decubiti with wound packing. 2 lesions occipital area, no drainage HEAD: Atraumatic. Normocephalic. Posterior pinpoint skin lesions noted on the occipital area EYES: Left-sided ptosis No scleral icterus. No injection or drainage. ENT: Nose without bleeding, purulent drainage or septal hematoma Airway patent. Tracheostomy in place NECK: Trachea midline. No JVD CARDIOVASCULAR: Regular rate and rhythm without murmurs, gallops, or rubs. RESPIRATORY: On mechanical ventilation via tracheostomy, Bilaterally decreased air entry GASTROINTESTINAL: Abdomen soft, non-tender, nondistended.No guarding. MUSCULOSKELETAL: Bilateral lower extremity contracture. Atrophic. No calf asymmetry. NEUROLOGICAL: Spontaneously opens his eyes. However not really tracking. Does not follow any commands. Bilateral upper and lower extremity contractures with muscle atrophy. Urinary Catheter: Yes A/P Assessment and Plan Impression: Acute respiratory failure requiring mechanical ventilation Acute respiratory acidosis Hypotension : Resolved with fluid bolus. A/P Problem List: (1) [id number] respiratory failure ICD Code: J96.20 Status: Acute Plan: Patient with acute episode of hypoxemia into the 80's, suspect aspiration. Continue mechanical ventilation. Vent bundle, bronchodilators as needed. Pulmonary following. Continue daily C PAP trials now lasting approximately 4 hours, consider trach collar trials (2) Hyperkalemia ICD Code: E87.5 Status: Acute Plan: Potassium elevated at 6.0 Given D50 and Regular insulin IV. 2 grams of IV calcium chloride and 40 mg of IV lasix on 09/22 Monitor BMP, lab draws every 2-3 days patient stable (3) Seizure disorder ICD Code: G40.909 Status: Chronic Plan: EEG done at [facility] showing epileptic discharges persistently. Negative MRI studies. 09/22 daughter refusing Depakote and Keppra. Reviewed neurology consult and EEG. 10/02 still refusing Depakote and Keppra 09/28- Dr. Prasad-neurology, EEG showing PLEDs, no seizure activity (4) Tracheostomy in place ICD Code: Z93.0 Status: Chronic Plan: Continue with trach care, suctioning as needed, aspiration precautions. Continue tube feeds (Jevity) as tolerated. Check residuals. Continue Reglan TID (5) S/P percutaneous endoscopic gastrostomy (PEG) tube placement ICD Code: Z93.1 Status: Chronic Plan: Patient with high residuals on 09/21 - started on Reglan IV scheduled. (6) H/O cardiac arrest ICD Code: Z86.74 Status: Chronic Plan: Patient has history of cardiac arrest on August 13 on 08/14/16. Continue to monitor on telemetry. Palliative care consulted to help address goals of care and establish a clear CODE STATUS. At [facility] the patient had a limited DO NOT RESUSCITATE. 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 (8) Dementia ICD Code: F03.90 Status: Chronic Plan: Patient currently on Cogentin, Ativan as needed for anxiety. (9) Schizophrenia ICD Code: F20.9 Status: Chronic Plan: Not on any medications at this point. (10) Diabetes mellitus type 2, controlled ICD Code: E11.9 Status: Chronic Plan: Diet controlled. Blood sugar seems to be stable. Not on sliding scale. (11) CAD (coronary artery disease) ICD Code: I25.10 Status: Chronic Plan: Continue aspirin 81 mg daily (12) Encephalopathy acute ICD Code: G93.40 Status: Acute Plan: Unclear what baseline is since patient had 2 cardiac arrests over at [facility]. Patient is more lethargic due to Co2 retention and anoxic encephalopathy. Placed on mechanical ventilation 09/22. Prophylaxis GI prophylaxis: Continue PPI. DVT plexus: SCDs, Heparin SQ BID Access: PICC line. Patient remains full CODE STATUS at this time. Case management following for LTAC placement for vent weaning. Dispo: Level 3 Discussed with patient's daughter this morning, and FORMS EXAMINER at bedside. Physician Ashli Vasquez MD October 05, 2016 15:38
[2016-10-05] MEDS: TAMSULOSIN HCL 0.4 MG CAP PO SCH (16:51)
[2016-10-05] MEDS: FLUCONAZOLE 200 MG PREMIX BAG 100 ML IV SCH (16:51)
--- NOTE | 2016-10-05 20:09 | HHI.PR ---
Subjective Remarks 80 YOAA male multiple co morbid condition VDRF,Trach, tracheal stent no fever Tolerates Trach collar Daughter refused sz meds Wound care following Started on Diflucan Objective Vital Signs Vital Signs Date Time Temp Pulse Resp B/P Pulse Ox O2 Delivery O2 Flow Rate FiO2 10/05/16 18:00 79 10/05/16 18:00 79 33 135/78 97 10/05/16 16:00 87 10/05/16 16:00 98.9 87 36 140/88 95 10/05/16 16:00 T-Piece 28 10/05/16 14:00 85 10/05/16 12:00 83 10/05/16 12:00 T-Piece 28 10/05/16 12:00 98.6 84 41 145/87 94 10/05/16 09:31 99 T-piece 5.00 35 10/05/16 08:00 98.7 93 40 155/95 94 10/05/16 08:00 T-Piece 28 10/05/16 08:00 95 10/05/16 04:00 T-Piece 28 10/05/16 04:00 98.3 84 24 163/91 98 10/05/16 00:00 T-Piece 28 10/05/16 00:00 98.4 78 32 158/97 94 10/04/16 21:42 95 T-piece 6.00 28 I/O 10/04/16 10/04/16 10/04/16 10/05/16 10/05/16 10/05/16 07:00 15:00 23:00 07:00 15:00 23:00 Intake Total 520 ml 677 ml 482 ml 470 ml 446 ml Output Total 850 ml 1275 ml 600 ml 450 ml 1350 ml Balance -330 ml -598 ml -118 ml 20 ml -904 ml Intake Oral 0 ml 0 ml 0 ml IV Total 6 ml 0 ml 0 ml Tube Feeding 460 ml 551 ml 422 ml 410 ml 346 ml Other 60 ml 120 ml 60 ml 60 ml 100 ml Output Urine Total 850 ml 1275 ml 600 ml 450 ml 1350 ml # Bowel Movements 1 1 0 1 1 Result Diagram: 10/04/1662710/04/16627 Objective Remarks GENERAL: Elderly male, on Vent SKIN: Warm and dry. HEAD: Normocephalic. EYES: No scleral icterus. No injection or drainage. NECK: Supple, trachea midline. No JVD or lymphadenopathy. Has trach CARDIOVASCULAR: Regular rate and rhythm without murmurs, gallops, or rubs. RESPIRATORY: Breath sounds equal bilaterally. No accessory muscle use. GASTROINTESTINAL: Abdomen soft, non-tender, nondistended. PEG tube in place MUSCULOSKELETAL: No cyanosis, or edema. BACK: Nontender without obvious deformity. No CVA tenderness. A/P Assessment and Plan VDRF Trach Tracheal stent Sz disorder S/P AAA repair S/P cardiac arrest PLAN: Trach care Aerosol nebs TF Cont trach collar Wound care Cont Daron Heredia MD October 05, 2016 20:08
[2016-10-06] VITALS (15 sets, daily range): BP systolic 75–149; BP diastolic 49–90; PULSE 80–103; RESP 16–41; TEMP 97.9–99.1; O2SAT 93–99
[2016-10-06 05:21] LABS: BICARBONATE 31.3 MEQ/L (21.0-32.0); POTASSIUM 4.9 MEQ/L (3.5-5.1)
[2016-10-06 05:30] LABS: HEMATOCRIT 27.3 % (39.0-51.0); MEAN CELL VOLUME 96.8 FL (80.0-100.0); MEAN CORPUSCULAR HEMOGLOBIN 31.4 PG (27.0-34.0); MEAN CORPUSCULAR HGB CONC 32.4 % (32.0-36.0); PLATELET COUNT 265 TH/MM3 (150-450); RED BLOOD COUNT 2.82 MIL/MM3 (4.50-5.90); RED CELL DISTRIBUTION WIDTH 20.7 % (11.6-17.2); REVIEW FLAG FINAL
[2016-10-06] MEDS: METOCLOPRAMIDE HCL 10 MG/2 ML VIAL IV PUSH SCH ×3 (05:42→21:08)
[2016-10-06] MEDS: HEPARIN SODIUM - SQ 10,000 UNITS/ML VIAL SQ SCH ×3 (05:42→23:31)
[2016-10-06] MEDS: RESP: ALBUTEROL 2.5 MG/IPRATROPIUM 0.5 MG NEB (PRN) NEB (08:39)
[2016-10-06] MEDS: RESP: TOBRAMYCIN SULFATE 300 MG/5 ML NEB NEB SCH (08:39)
[2016-10-06] MEDS: SODIUM CHLORIDE 0.9% FLUSH 10 ML FLUSH IV FLUSH SCH ×3 (09:00→21:06)
--- NOTE | 2016-10-06 09:32 | HHI.CCPN ---
Subjective Remarks/Hospital Course 09/22: Patient was transferred from [facility] to [facility] in [place] on July 01, 2016. He was admitted to our hospital on June 30, 2016. Patient is a trach dependent and PEG dependent patient since about 2010 when we first saw him at our hospital. In June of this year, he presented to our emergency room and was admitted to the administrative support associate service. He was having blood clots through his PEG tube as well with respiratory failure requiring ventilator support. He has had history of tracheomalacia with tracheal stent placed in [facility] about 2 years prior. Subsequent workup here in June revealed his tracheal stent 80%occlusion with debris versus mass. Therapeutic bronchoscopy was done here which shows near complete occlusion of tracheal stent with organized clots and mucous. He was managed overnight by administrative support associate team and was transferred to [facility] because of this tracheal stent occlusion with hemoptysis. Patient was managed at [facility] for this tracheal stent occlusion and underwent multiple bronchoscopies and tracheostomy revision and tracheal stent revision with new stent placement. He also had cardiac arrest while in hospital on August 13, 2016 and August 14, 2016. He required ventilator support during the hospitalization and currently on FiO2 of 28% through trach. He was managed there for pseudomonas pneumonia with colonization and MRSA from bronchial lavage. 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 He was also managed for massive distention of the colon suspicious for volvulus versus ileus. He was finally stabilized and managed on PCU service at present and transferred back to [facility] on 09/20/16 when he was admitted by the hospitalist service to the floor on [facility]. This morning patient was noted to be lethargic and an ABG revealed PCO2 in the 80s. He was transferred [place] [facility] [place] critical care consult being requested by Dr. Chen. He was placed on mechanical ventilation. I evaluated the patient shortly following his arrival. History was obtained by reviewing records and discussion with Dr. Chen. 09/23: Remains encephalopathic on mechanical ventilation via tracheostomy. Tube feeds Resumed yesterday and tolerating well currently. 09/24: Remains encephalopathic on mechanical ventilation via tracheostomy. Blood pressure running high. Increased Coreg and started lisinopril. 09/25: Remains encephalopathic, on mechanical ventilation via tracheostomy. Tolerating tube feeds. Continue C Pap trials daily. 09/26: Remains encephalopathic, on mechanical ventilation via tracheostomy. Having apneic episodes with C Pap trials today. Tolerating tube feeds. 09/27: Remains encephalopathic, and mechanical ventilation via tracheostomy. C Pap/T piece trials as tolerated. 09/28: Continues to remain encephalopathic. Unsuccessful CPAP trials, tolerating tube feeds minimal residuals. 09/29: Tmax 98.4. No change in neurological status. CPAP trials continued but unsuccessful. 09/30: Afebrile. Remains encephalopathic. Patient tolerating CPAP trials greater than 4 hours today. Urine output adequate IV fluids discontinued. 10/01: The patient is advancing on CPAP trials greater than 4 hours today. No change in neurological status. Urine output adequate IV fluids discontinued. 10/02: Family daughter request stating that Keppra be held and continues to refuse Depakote. The patient was maintained on CPAP trials for approximately 4 hours yesterday. The patient was noted to have an elevation in temperature, cultures were obtained. 10/03: Remains encephalopathic. Reconsultation with wound care nurse noted new left area of sacral decubitus, orders for treatment instituted. Keppra and Depakote were placed on hold on the monitor due to refusal from family to allow patient to receive medication. The patient continues on CPAP trials. 10/04: The patient's daughter was noted to be at the bedside. New wound care instructions were implemented. Patient was noted to have 2 lesions on the posterior occiput that will be reevaluated by the wound care nurse. The patient remains encephalopathic. 10/05: Afebrile. The patient was noted to have [place] tropicalis and urine cultures, Diflucan initiated. The patient remains encephalopathic. The patient continues on CPAP trials. 10/06 No acute events overnight. On TP's with 28% FIO2 with good sats. Afebrile. Objective Vital Signs Date Time Temp Pulse Resp B/P Pulse Ox O2 Delivery O2 Flow Rate FiO2 10/06/16 08:40 99 T-piece 35.00 10/06/16 04:00 98.1 80 37 139/90 10/06/16 04:00 28 Intake and Output 10/05/16 10/05/16 10/06/16 08:00 16:00 00:00 Intake Total 470 ml 446 ml 437 ml Output Total 450 ml 1350 ml 700 ml Balance 20 ml -904 ml -263 ml Result Diagram: 10/06/16 0330 10/06/16 0330 Other Results Laboratory Tests Test 10/06/16 03:30 White Blood Count 8.0 TH/MM3 Red Blood Count 2.82 MIL/MM3 Hemoglobin 8.9 GM/DL Hematocrit 27.3 % Mean Corpuscular Volume 96.8 FL Mean Corpuscular Hemoglobin 31.4 PG Mean Corpuscular Hemoglobin 32.4 % Concent Red Cell Distribution Width 20.7 % Platelet Count 265 TH/MM3 Mean Platelet Volume 8.5 FL Hematology Comments Sodium Level 130 MEQ/L Potassium Level 4.9 MEQ/L Chloride Level 92 MEQ/L Carbon Dioxide Level 31.3 MEQ/L Anion Gap 7 MEQ/L Blood Urea Nitrogen 19 MG/DL Creatinine 0.80 MG/DL Estimat Glomerular Filtration 113 ML/MIN Rate Random Glucose 114 MG/DL Calcium Level 8.8 MG/DL Phosphorus Level 3.1 MG/DL Magnesium Level 2.0 MG/DL Imaging Last Impressions Chest X-Ray 10/01/16 0600 Signed Impressions: Service Date/Time: Saturday, October 01, 2016 03:32 - CONCLUSION: Cardiomegaly with perihilar airspace disease, slightly improved. Zach Herzog MD Objective Remarks Physical Exam GENERAL: This is an elderly gentleman, noncommunicative, trach dependent, PEG dependent SKIN: Sacral decubiti with wound packing. 2 lesions occipital area, no drainage HEAD: Atraumatic. Normocephalic. Posterior pinpoint skin lesions noted on the occipital area EYES: Left-sided ptosis No scleral icterus. No injection or drainage. ENT: Nose without bleeding, purulent drainage or septal hematoma Airway patent. Tracheostomy in place NECK: Trachea midline. No JVD CARDIOVASCULAR: Regular rate and rhythm without murmurs, gallops, or rubs. RESPIRATORY: On mechanical ventilation via tracheostomy, Bilaterally decreased air entry GASTROINTESTINAL: Abdomen soft, non-tender, nondistended.No guarding. MUSCULOSKELETAL: Bilateral lower extremity contracture. Atrophic. No calf asymmetry. NEUROLOGICAL: Spontaneously opens his eyes. However not really tracking. Does not follow any commands. Bilateral upper and lower extremity contractures with muscle atrophy. A/P Assessment and Plan 1)Resp failure s/p trach 2)Encephalopathy 3)UTI 4)Anemia 5)CAD 6)Hx Cardiac arrest in July 7)DM 8)Dementia, seizure disorder 9)Hx Schizophrenia Neuro: Monitor neuro status, avoid sedatives - Dr. Prasad-neurology, EEG showing PLEDs, no seizure activity daughter refusing Depjoannte and Judithra Unclear what baseline is since patient had 2 cardiac arrests over at [facility]. Pulm: Continue with oxygen keep sat >92% Bronchodilators, pulm toilet, trach care CV: Monitor HR and BP keep MAP>65mmHg On Coreg 12.5mg BID, Lisinopril 10mg daily, ASA 81 mg daily :Monitor renal function, electrolytes replacement protocol. GI: On tube feeds via PEG tube-Jevity 1.5@60ml/hr ID:Monitor for signs of infections ( Fever, WBC) d/c Tobra nebs ( has been on it since 09/21) 10/02 Urine cx: medina Tropicalis- On Diflucan Heme: Monitor CBC Endo: Euglycemic ,SSI if needed for glycemic control GI prophylaxis- On Protonix 40mg daily DVT prophylaxis- Heparin Sq Access: PICC line. Patient remains full CODE STATUS at this time. Case management following for LTAC placement for vent weaning. Level 3 Cari Barba MD October 06, 2016 09:32 (6) H/O cardiac arrest ICD Code: Z86.74 Status: Chronic Plan: Patient has history of cardiac arrest on August 13 on 08/14/16. Continue to monitor on telemetry. Palliative care consulted to help address goals of care and establish a clear CODE STATUS. At [facility] the patient had a limited DO NOT RESUSCITATE. 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 (8) Dementia ICD Code: F03.90 Status: Chronic Plan: Patient currently on Cogentin, Ativan as needed for anxiety. (9) Schizophrenia ICD Code: F20.9 Status: Chronic Plan: Not on any medications at this point. (10) Diabetes mellitus type 2, controlled ICD Code: E11.9 Status: Chronic Plan: Diet controlled. Blood sugar seems to be stable. Not on sliding scale. (11) CAD (coronary artery disease) ICD Code: I25.10 Status: Chronic Plan: Continue aspirin 81 mg daily (12) Encephalopathy acute ICD Code: G93.40 Status: Acute Plan: Unclear what baseline is since patient had 2 cardiac arrests over at [facility]. Patient is more lethargic due to Co2 retention and anoxic encephalopathy. Placed on mechanical ventilation 09/22. Prophylaxis GI prophylaxis: Continue PPI. DVT plexus: SCDs, Heparin SQ BID Access: PICC line. Patient remains full CODE STATUS at this time. Case management following for LTAC placement for vent weaning. Dispo: Level 3 Discussed with patient's daughter this morning, and YARN BLEACHING MACHINE OPERATOR at bedside. Cari Barba MD October 06, 2016 09:32
[2016-10-06] MEDS: BENZTROPINE MESYLATE 1 MG TAB PEG SCH (10:45)
[2016-10-06] MEDS: GLYCOPYRROLATE 1 MG TAB PEG SCH ×3 (10:45→18:00)
[2016-10-06] MEDS: PANTOPRAZOLE SODIUM 40 MG VIAL IV PUSH SCH (10:45)
[2016-10-06] MEDS: ASPIRIN 81 MG CHEW TAB PEG SCH (10:45)
[2016-10-06] MEDS: LISINOPRIL 10 MG TAB PEG SCH (10:45)
[2016-10-06] MEDS: CARVEDILOL 12.5 MG TAB PEG SCH ×2 (10:45→21:07)
[2016-10-06] MEDS: LABETALOL HCL 100 MG/20 ML VIAL IV PUSH PRN (15:20)
[2016-10-06] MEDS: TAMSULOSIN HCL 0.4 MG CAP PO SCH (16:00)
[2016-10-06] MEDS: FLUCONAZOLE 200 MG PREMIX BAG 100 ML IV SCH (16:00)
--- NOTE | 2016-10-06 18:06 | HHI.PR ---
Subjective Remarks 80 YOAA male multiple co morbid condition VDRF,Trach, tracheal stent no fever Tolerates Trach collar Daughter refused sz meds Wound care following Small amount of trach secretions Objective Vital Signs Vital Signs Date Time Temp Pulse Resp B/P Pulse Ox O2 Delivery O2 Flow Rate FiO2 10/06/16 16:00 T-Piece 28 10/06/16 16:00 97.9 80 37 139/90 96 10/06/16 12:00 T-Piece 28 10/06/16 12:00 103 10/06/16 08:40 99 T-piece 35.00 10/06/16 08:00 T-Piece 28 10/06/16 04:00 98.1 80 37 139/90 96 10/06/16 04:00 T-Piece 28 10/06/16 01:00 98.2 80 33 148/80 95 10/06/16 00:00 T-Piece 28 10/05/16 22:31 97 T-piece 5.00 35 10/05/16 20:00 T-Piece 28 10/05/16 20:00 98.4 86 33 154/93 95 I/O 10/05/16 10/05/16 10/05/16 10/06/16 10/06/16 10/06/16 07:00 15:00 23:00 07:00 15:00 23:00 Intake Total 470 ml 446 ml 437 ml 425 ml 500 ml Output Total 450 ml 1350 ml 700 ml 400 ml 1250 ml Balance 20 ml -904 ml -263 ml 25 ml -750 ml Intake Oral 0 ml 0 ml 0 ml 0 ml IV Total 0 ml 0 ml 0 ml 0 ml Tube Feeding 410 ml 346 ml 377 ml 365 ml 400 ml Other 60 ml 100 ml 60 ml 60 ml 100 ml Output Urine Total 450 ml 1350 ml 700 ml 400 ml 1250 ml # Bowel Movements 1 1 1 0 1 Result Diagram: 10/06/16 03310/06/16 033 Objective Remarks GENERAL: Elderly male, on Vent SKIN: Warm and dry. HEAD: Normocephalic. EYES: No scleral icterus. No injection or drainage. NECK: Supple, trachea midline. No JVD or lymphadenopathy. Has trach CARDIOVASCULAR: Regular rate and rhythm without murmurs, gallops, or rubs. RESPIRATORY: Breath sounds equal bilaterally. No accessory muscle use. GASTROINTESTINAL: Abdomen soft, non-tender, nondistended. PEG tube in place MUSCULOSKELETAL: No cyanosis, or edema. BACK: Nontender without obvious deformity. No CVA tenderness. A/P Assessment and Plan VDRF Trach Tracheal stent Sz disorder S/P AAA repair S/P cardiac arrest PLAN: Trach care Aerosol nebs TF Cont trach collar Wound care Cont Diflucan CXR in Daron Miller MD October 06, 2016 18:06
[2016-10-07] VITALS (20 sets, daily range): BP systolic 78–157; BP diastolic 52–93; PULSE 74–85; RESP 13–29; TEMP 97.7–99.5; O2SAT 95–100
--- NOTE | 2016-10-07 05:00 | RADRPT ---
EXAM DATE/TIME: 10/07/2016 03:43 [facility] COMPARISON: CHEST SINGLE AP, September 29, 2016, 3:41. CHEST SINGLE AP, October 01, 2016, 3:32. INDICATIONS : Shortness of breath, possible pulmonary disease. MEDICAL HISTORY : Carcinoma, prostatic. Chronic obstructive pulmonary disease. Gastroesophageal reflux disease. Gris mehdi SURGICAL HISTORY : Umbilical hernia repair. ENCOUNTER: Subsequent ACUITY: 2 weeks PAIN SCORE: Non-responsive. LOCATION: Bilateral chest FINDINGS: Tracheostomy tube remains in place. There has been improvement in the previously noted infiltrate in the left lung. The lungs are now grossly clear. There is elevation the right hemidiaphragm. Heart siz e is stable. No definite pleural effusions. The expandable stent remains in place. CONCLUSION: The previously noted left lung infiltrate has resolved. No definite new infiltrates are seen. Yoni Guaman MD on October 07, 2016 at 4:57 Board Certified Radiologist. This report was verified electronically.
[2016-10-07 05:07] LABS: BICARBONATE 32.1 MEQ/L (21.0-32.0); MAGNESIUM 2.1 MG/DL (1.5-2.5); POTASSIUM 5.2 MEQ/L (3.5-5.1)
[2016-10-07 05:30] LABS: WHITE BLOOD COUNT 10.1 TH/MM3 (4.0-11.0)
[2016-10-07 05:31] LABS: AUTOMATED NEUTROPHIL # 7.2 TH/MM3 (1.8-7.7); BASOPHIL # 0.1 TH/MM3 (0-0.2); BASOPHIL % 0.7 % (0.0-2.0); EOSINOPHIL # 0.2 TH/MM3 (0-0.4); EOSINOPHIL % 2.1 % (0.0-4.0); HEMATOCRIT 28.2 % (39.0-51.0); HEMO FLAGS DIFF FINAL; LYMPH % 12.9 % (9.0-44.0); LYMPHOCYTE # 1.3 TH/MM3 (1.0-4.8); MEAN CELL VOLUME 95.9 FL (80.0-100.0); MEAN CORPUSCULAR HEMOGLOBIN 30.6 PG (27.0-34.0); MEAN CORPUSCULAR HGB CONC 31.9 % (32.0-36.0); MONO % 13.1 % (0.0-8.0); NEUT % 71.2 % (16.0-70.0); PLATELET COUNT 247 TH/MM3 (150-450); RED BLOOD COUNT 2.94 MIL/MM3 (4.50-5.90); RED CELL DISTRIBUTION WIDTH 20.3 % (11.6-17.2)
[2016-10-07] MEDS: HEPARIN SODIUM - SQ 10,000 UNITS/ML VIAL SQ SCH ×3 (06:13→20:05)
[2016-10-07] MEDS: METOCLOPRAMIDE HCL 10 MG/2 ML VIAL IV PUSH SCH ×3 (06:14→20:05)
[2016-10-07] MEDS ORDERED: CHLORHEXIDINE GLUCONATE 2 % 1 PACK (2 CLOTHS)(extra cloths) TOPICAL PRN (08:30)
[2016-10-07] MEDS: LISINOPRIL 10 MG TAB PEG SCH (09:00)
[2016-10-07] MEDS: SODIUM CHLORIDE 0.9% FLUSH 10 ML FLUSH IV FLUSH SCH ×3 (10:29→20:04)
[2016-10-07] MEDS: CARVEDILOL 12.5 MG TAB PEG SCH ×2 (10:30→20:04)
[2016-10-07] MEDS: ASPIRIN 81 MG CHEW TAB PEG SCH (10:30)
[2016-10-07] MEDS: PANTOPRAZOLE SODIUM 40 MG VIAL IV PUSH SCH (10:30)
[2016-10-07] MEDS: GLYCOPYRROLATE 1 MG TAB PEG SCH ×3 (10:31→17:27)
--- NOTE | 2016-10-07 13:04 | PD.CONS ---
HPI History of Present Illness This is a 80 year old male who is currently tracheostomy and PEG dependent since 2010. 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 He was then seen in June and found to have his tracheal stent with 80% occlusion with organized clots and mucous. He was stabilized and sent to [facility] for further treatment of this and underwent multiple bronchoscopies and tracheostomy revision and tracheal stent revision with new stent placement. He was then transferred back to our facility on 09/20/16. He remains in the medical intensive care unit, being treated for respiratory failure, encephalopathy, urinary tract infection, anemia , coronary artery disease, diabetes, dementia, seizure disorder, and a hx of schizophrenia. He is unable to provide any history and therefore the history has been obtained from the EMR. The information services assistant is following and has recommended Jevity 1.5 at 60cc/hr. The nurse reports that his PEG tube has been becoming clogged frequently and that they found the patient this morning with a clogged peg tube and that they have not been able to flush it. GI has been consulted for PEG tube exchange. (Denita Ruano) PFSH Past Medical History COPD History of urosepsis Hypertension CAD Mild to moderate mitral regurgitation. Moderate tricuspid regurgitation. Prostate cancer Dementia Seizure disorder AAArepaired Paranoid schizophrenia Anemia Anxiety GERD Recurrent Pseudomonas pneumonia, likely colonization Status post PEA arrest-08/13/2016 and 08/14/2016 History of MRSA History of C. difficile Dysphagia Chronic respiratory failure Past Surgical History [id number] PEG tube [id number] Tracheal stentaround 2014September 14, 2016tracheostomy tube removal and replacement, tracheostomy stent revision and stent placement, with flexible and rigid bronchoscopy July 19, 2016tracheostomy procedure BronchoscopiesFebruary 2016, July 26, 2016 AAA repair Umbilical hernia repair Left inguinal hernia repair . (Denita Ruano) Coded Allergies: Penicillin (Verified Allergy, Unknown, 06/30/16) *MDRO Multi-Drug Resistant Organism (Verified Adverse Reaction, Unknown, MRSA, 07/03/16) MRSA PCR screen POSITIVE - 07/01/16 Codeine (Verified Adverse Reaction, Unknown, Anaphylaxis, 06/30/16) Medications Allergies Coded Allergies Type Severity Reaction Last Updated Verified Penicillin Allergy Unknown 06/30/16 Yes *MDRO Multi-Drug Resistant Organism Adverse Reaction Unknown MRSA 07/03/16 Yes Codeine Adverse Reaction Unknown Anaphylaxis 06/30/16 Yes Active Scripts Medications Dose Route/Sig Days Date Category Dose Instructions Miralax Powder (Polyethylene Glycol 3350 Powder) 17 Gm Powd 17 Gm PO DAILY 09/20/16 Reported Mix and dissolve one measuring cap-ful (17 grams) in water or juice. Zofran (Ondansetron HCl) 4 Mg Tab 4 Mg IV PUSH Q4HR PRN 09/20/16 Reported Magnesium Sulfate 4 Gm/50 Ml Inj 2 Gm IV 09/20/16 Reported Lorazepam 2 Mg Tab 2 Mg PO Q8HR PRN 09/20/16 Reported Lidocaine-Prilocaine Topical 2.5-2.5 % Cream 09/20/16 Reported Labetalol (Labetalol HCl) 100 Mg Tab 20 Mg IV PUSH Q4HR 09/20/16 Reported Hydromorphone (Hydromorphone HCl) 2 Mg Tab 0.5 Mg IV PUSH Q1HR NEB PRN 09/20/16 Reported Hydralazine (Hydralazine HCl) 10 Mg Tab 20 Mg IV PUSH Q4HR 09/20/16 Reported Take with a meal Glucagon Inj 1 Mg/Ml Inj 1 Mg SQ ONCE PRN 09/20/16 Reported Dextrose 50% (Dextrose) 50 % Inj 25 IV PUSH 09/20/16 Reported Dulcolax Supp (Bisacodyl) 10 Mg Supp 10 Mg RECTAL DAILY PRN 09/20/16 Reported Albuterol Neb (Albuterol Sulfate) 2.5 Mg/0.5 Ml Neb 2.5 Mg NEB Q4HR 09/20/16 Reported Note: The Albuterol Sulfate Inhalation Solution is concentrated and must be diluted. Read complete instructions carefully before using. Albuterol (Albuterol Sulfate) 2 Mg Tab 2 Mg PO TID 09/20/16 Reported Acetaminophen 325 Mg Tab 650 Mg G-TUBE Q6HR PRN 09/20/16 Reported Depakene (Valproic Acid) 250 Mg Cap 1,500 Mg PO Q8HR 09/20/16 Reported Tobramycin Neb (Tobramycin) 300 Mg/5 Ml Neb 300 Mg NEB BID 09/20/16 Reported Flomax (Tamsulosin HCl) 0.4 Mg Cap 0.4 Mg PO AC DINNER 09/20/16 Reported Senokot (Sennosides) 8.6 Mg Tab 5 Ml PO BID 09/20/16 Reported Protonix (Pantoprazole Sodium) 40 Mg Tab 40 Pkt DAILY 09/20/16 Reported Keppra (Levetiracetam) 1,000 Mg Tab 1,500 Mg PO BID 09/20/16 Reported Heparin Inj (Heparin Sodium (Porcine)) 10,000 Units/10 Ml Inj 5,000 Units SQ Q6HR 09/20/16 Reported Guaifenesin-Dm Liq (Guaifenesin/Dextromethorphan) 100-10 Mg/5 Ml Syrp 10 Ml IV Q6HR 09/20/16 Reported Glycopyrrolate 1 Mg Tab 1 Mg PO TID 09/20/16 Reported Coreg (Carvedilol) 6.25 Mg Tab 6.25 Mg .ROUTE BID 09/20/16 Reported Benztropine (Benztropine Mesylate) 1 Mg Tab 1 Mg PO BID 09/20/16 Reported Aspirin 81 Mg Chew 81 Mg PEG DAILY 09/20/16 Reported Colace (Docusate Sodium) 100 Mg Cap 100 Mg PO 09/20/16 Reported Coreg (Carvedilol) 6.25 Mg Tab 6.25 Mg G-TUBE BID 06/30/16 Reported Aspirin 81 Mg Tabdr 81 Mg GT HS 06/30/16 Reported Family History Per review of EMR: History of paternal and maternal hypertension. Mother lived to be 95 years old and her grandmother lived to be 105. Little history available from father's side, may have from complications related to urogenital issues. Social History Previous history of smoking. Quit in 2009. Remote history of alcohol abuse. No IV drug abuse. Was previously living with his daughter and son-in-law. (Denita Ruano) Review of Systems ROS Unable to obtain (Denita Ruano) GI Exam Vitals I&O Vital Signs Date Time Temp Pulse Resp B/P Pulse Ox O2 Delivery O2 Flow Rate FiO2 10/07/16 10:00 77 10/07/16 08:00 98.5 76 24 88/54 98 10/07/16 08:00 T-Piece 7.00 28 10/07/16 08:00 76 10/07/16 07:45 100 T-piece 6.00 28 10/07/16 06:00 74 10/07/16 04:00 81 10/07/16 04:00 98.1 77 24 87/58 99 10/07/16 04:00 T-Piece 50 10/07/16 03:00 74 27 92/53 99 10/07/16 02:30 76 19 88/52 99 10/07/16 02:00 77 24 87/58 99 10/07/16 02:00 77 10/07/16 01:32 79 13 108/62 100 10/07/16 01:30 79 25 78/54 100 10/07/16 01:00 83 15 113/70 96 10/07/16 00:30 84 24 111/65 97 10/07/16 00:00 99.1 84 20 102/62 97 10/07/16 00:00 84 10/07/16 00:00 T-Piece 50 10/06/16 23:00 83 19 113/69 97 10/06/16 22:30 85 17 115/66 98 10/06/16 22:03 90 41 85/54 95 10/06/16 22:02 88 20 77/52 95 10/06/16 22:00 87 10/06/16 22:00 87 22 75/49 93 10/06/16 21:30 99 16 124/67 96 10/06/16 21:10 97 T-piece 7.00 50 10/06/16 21:00 99 21 148/85 98 10/06/16 21:00 T-Piece 50 10/06/16 20:00 T-Piece 98 10/06/16 20:00 99.1 98 19 149/86 98 10/06/16 20:00 98 10/06/16 18:00 103 10/06/16 16:00 T-Piece 28 10/06/16 16:00 97.9 80 37 139/90 96 I/O 10/06/16 10/06/16 10/06/16 10/07/16 10/07/16 10/07/16 07:00 15:00 23:00 07:00 15:00 23:00 Intake Total 425 ml 500 ml 482 ml 578 ml Output Total 400 ml 1250 ml 375 ml 445 ml Balance 25 ml -750 ml 107 ml 133 ml Intake Oral 0 ml 0 ml 0 ml 0 ml IV Total 0 ml 0 ml 175 ml 78 ml Tube Feeding 365 ml 400 ml 247 ml 440 ml Other 60 ml 100 ml 60 ml 60 ml Output Urine Total 400 ml 1250 ml 375 ml 445 ml # Bowel Movements 0 1 0 0 Imaging Last Impressions Chest X-Ray 10/07/16 0600 Signed Impressions: Service Date/Time: Friday, October 07, 2016 03:43 - CONCLUSION: The previously noted left lung infiltrate has resolved. No definite new infiltrates are seen. Yoni Guaman MD Laboratory Test 10/07/16 03:51 White Blood Count 10.1 TH/MM3 Red Blood Count 2.94 MIL/MM3 Hemoglobin 9.0 GM/DL Hematocrit 28.2 % Mean Corpuscular Volume 95.9 FL Mean Corpuscular Hemoglobin 30.6 PG Mean Corpuscular Hemoglobin 31.9 % Concent Red Cell Distribution Width 20.3 % Platelet Count 247 TH/MM3 Mean Platelet Volume 7.8 FL Neutrophils (%) (Auto) 71.2 % Lymphocytes (%) (Auto) 12.9 % Monocytes (%) (Auto) 13.1 % Eosinophils (%) (Auto) 2.1 % Basophils (%) (Auto) 0.7 % Neutrophils # (Auto) 7.2 TH/MM3 Lymphocytes # (Auto) 1.3 TH/MM3 Monocytes # (Auto) 1.3 TH/MM3 Eosinophils # (Auto) 0.2 TH/MM3 Basophils # (Auto) 0.1 TH/MM3 CBC Comment DIFF FINAL Differential Comment Hematology Comments Sodium Level 130 MEQ/L Potassium Level 5.2 MEQ/L Chloride Level 91 MEQ/L Carbon Dioxide Level 32.1 MEQ/L Anion Gap 7 MEQ/L Blood Urea Nitrogen 25 MG/DL Creatinine 0.86 MG/DL Estimat Glomerular Filtration 104 ML/MIN Rate Random Glucose 129 MG/DL Calcium Level 8.9 MG/DL Phosphorus Level 3.7 MG/DL Magnesium Level 2.1 MG/DL Date/Time Procedure Status Source Growth 10/02/16 16:02 Aerobic Blood Culture - Final Complete Blood Peripheral NO GROWTH IN 5 DAYS 10/02/16 16:02 Anaerobic Blood Culture - Final Complete Blood Peripheral NO GROWTH IN 5 DAYS Physical Examination HEENT: Normocephalic; atraumatic NECK: Tracheostomy CHEST: Course breath sounds CARDIAC: RRR ABDOMEN: Soft, nondistended, nontender; no hepatosplenomegaly; bowel sounds are present in all four quadrants. Clogged peg tube. EXTREMITIES: No edema. VALVE INSPECTOR: Opens eyes, does not track or follow commands (Denita Ruano) Assessment and Plan Plan ASSESSMENT: - Malfunctioning PEG tube. Pt has had PEG/Trach since 2010. Nurses report that they have been having issues with the PEG clogging and that they have not been able to flush since they came in. Exchanged with #20 Gastrostomy replacement tube without difficulty. No gastric secretions aspirated, although auscultated air bolus in the stomach. Will get KUB with gastrografin to confirm placement. - Respiratory failure. Hx tracheomalacia with tracheal stent placement about 2 years ago. In June he was found to have his tracheal stent with 80% occlusion with organized clots and mucous. He was stabilized and sent to [facility] for further treatment of this and underwent multiple bronchoscopies and tracheostomy revision and tracheal stent revision with new stent placement. He was then transferred back to our facility on 09/20/16. Trach collar. Pulm. CCM following. - Encephalopathy,anemia, coronary artery disease, diabetes, dementia, seizure disorder, and a hx of schizophrenia. Per primary PLAN: - S/P exchange with #20 replacement gastrostomy tube - KUB with gastrografin to confirm placement - Okay to start TF, Jevity 1.5 at 60cc/hr once placement confirmed - Pt seen and examined by Dr. Dias and myself and this note is written on her behalf. ADDENDUM: G tube in good position on KUB. Okay to use. GI will sign off, please reconsult as needed (Denita Ruano) Physician Comments agree with above (Anisa Dias MD) Denita Ruano October 07, 2016 13:04 Anisa Dias MD October 07, 2016 20:24
[2016-10-07] MEDS ORDERED: DIATRIZOATE MEGLUM/DIATRIZOATE SOD 120 ML BTL (for RAD DIAG) G-TUBE ONE (13:30)
--- NOTE | 2016-10-07 13:32 | RADRPT ---
EXAM DATE/TIME: 10/07/2016 13:10 [place] COMPARISON: No previous studies available for comparison. INDICATIONS : Check placement of g tube. MEDICAL HISTORY : Carcinoma, prostatic. Chronic obstructive pulmonary disease. Diabetes mellitus type II. SURGICAL HISTORY : Umbilical hernia repair. G-tube. ENCOUNTER: Initial ACUITY: 1 month PAIN SCORE: Non-responsive. LOCATION: Abdomen FINDINGS: Supine view of the abdomen was performed. The contrast is seen within the stomach and proximal small bowel. Percutaneous gastrostomy tube. Coils in the right pelvis. The abdominal bowel gas pattern is n ormal. No abnormal masses, calcifications, or organomegaly is seen. The osseous structures are unre markable. CONCLUSION: G-tube in good position. Zach Herzog MD on October 07, 2016 at 13:29 Board Certified Radiologist. This report was verified electronically.
--- NOTE | 2016-10-07 13:59 | HHI.CCPN ---
Subjective Remarks/Hospital Course 09/22: Patient was transferred from [facility] to [facility] in [place] on July 01, 2016. He was admitted to our hospital on June 30, 2016. Patient is a trach dependent and PEG dependent patient since about 2010 when we first saw him at our hospital. In June of this year, he presented to our emergency room and was admitted to the attic fans mechanic service. He was having blood clots through his PEG tube as well with respiratory failure requiring ventilator support. He has had history of tracheomalacia with tracheal stent placed in [facility] about 2 years prior. Subsequent workup here in June revealed his tracheal stent 80%occlusion with debris versus mass. Therapeutic bronchoscopy was done here which shows near complete occlusion of tracheal stent with organized clots and mucous. He was managed overnight by attic fans mechanic team and was transferred to [facility] because of this tracheal stent occlusion with hemoptysis. Patient was managed at [facility] for this tracheal stent occlusion and underwent multiple bronchoscopies and tracheostomy revision and tracheal stent revision with new stent placement. He also had cardiac arrest while in hospital on August 13, 2016 and August 14, 2016. He required ventilator support during the hospitalization and currently on FiO2 of 28% through trach. He was managed there for pseudomonas pneumonia with colonization and MRSA from bronchial lavage. 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 He was also managed for massive distention of the colon suspicious for volvulus versus ileus. He was finally stabilized and managed on PCU service at present and transferred back to [facility] on 09/20/16 when he was admitted by the hospitalist service to the floor on pending sale to [facility]. This morning patient was noted to be lethargic and an ABG revealed PCO2 in the 80s. He was transferred to [facility] with critical care consult being requested by Dr. Chen. He was placed on mechanical ventilation. I evaluated the patient shortly following his arrival. History was obtained by reviewing records and discussion with Dr. Chen. 09/23: Remains encephalopathic on mechanical ventilation via tracheostomy. Tube feeds Resumed yesterday and tolerating well currently. 09/24: Remains encephalopathic on mechanical ventilation via tracheostomy. Blood pressure running high. Increased Coreg and started lisinopril. 09/25: Remains encephalopathic, on mechanical ventilation via tracheostomy. Tolerating tube feeds. Continue C Pap trials daily. 09/26: Remains encephalopathic, on mechanical ventilation via tracheostomy. Having apneic episodes with C Pap trials today. Tolerating tube feeds. 09/27: Remains encephalopathic, and mechanical ventilation via tracheostomy. C Pap/T piece trials as tolerated. 09/28: Continues to remain encephalopathic. Unsuccessful CPAP trials, tolerating tube feeds minimal residuals. 09/29: Tmax 98.4. No change in neurological status. CPAP trials continued but unsuccessful. 09/30: Afebrile. Remains encephalopathic. Patient tolerating CPAP trials greater than 4 hours today. Urine output adequate IV fluids discontinued. 10/01: The patient is advancing on CPAP trials greater than 4 hours today. No change in neurological status. Urine output adequate IV fluids discontinued. 10/02: Family daughter request stating that Keppra be held and continues to refuse Depakote. The patient was maintained on CPAP trials for approximately 4 hours yesterday. The patient was noted to have an elevation in temperature, cultures were obtained. 10/03: Remains encephalopathic. Reconsultation with wound care nurse noted new left area of sacral decubitus, orders for treatment instituted. Keppra and Depakote were placed on hold on the monitor due to refusal from family to allow patient to receive medication. The patient continues on CPAP trials. 10/04: The patient's daughter was noted to be at the bedside. New wound care instructions were implemented. Patient was noted to have 2 lesions on the posterior occiput that will be reevaluated by the wound care nurse. The patient remains encephalopathic. 10/05: Afebrile. The patient was noted to have Concetta tropicalis and urine cultures, Diflucan initiated. The patient remains encephalopathic. The patient continues on CPAP trials. 10/06 No acute events overnight. On TP's with 28% FIO2 with good sats. Afebrile. 10/07: Afebrile .Patient's gastric tube consists continually clog. GI consulted, gastric tube placed. Patient was placed on TPiece yesterday, doing well. Objective Vital Signs Date Time Temp Pulse Resp B/P Pulse Ox O2 Delivery O2 Flow Rate FiO2 10/07/16 10:00 77 10/07/16 08:00 98.5 24 88/54 98 10/07/16 08:00 T-Piece 7.00 28 Intake and Output 10/06/16 10/06/16 10/06/16 07:59 15:59 23:59 Intake Total 425 ml 500 ml 482 ml Output Total 400 ml 1250 ml 375 ml Balance 25 ml -750 ml 107 ml Result Diagram: 10/07/16 0351 10/07/16 0351 Imaging Last Impressions Chest X-Ray 10/01/16 0600 Signed Impressions: Service Date/Time: Saturday, October 01, 2016 03:32 - CONCLUSION: Cardiomegaly with perihilar airspace disease, slightly improved. Zach Herzog MD Objective Remarks Physical Exam GENERAL: This is an elderly gentleman, noncommunicative, trach dependent, PEG dependent SKIN: Sacral decubiti with wound packing. 2 lesions occipital area, no drainage HEAD: Atraumatic. Normocephalic. Posterior pinpoint skin lesions noted on the occipital area EYES: Left-sided ptosis No scleral icterus. No injection or drainage. ENT: Nose without bleeding, purulent drainage or septal hematoma Airway patent. Tracheostomy in place NECK: Trachea midline. No JVD CARDIOVASCULAR: Regular rate and rhythm without murmurs, gallops, or rubs. RESPIRATORY: On T- piece via tracheostomy, Bilaterally decreased air entry GASTROINTESTINAL: Abdomen soft, non-tender, nondistended.No guarding. MUSCULOSKELETAL: Bilateral lower extremity contracture. Atrophic. No calf asymmetry. NEUROLOGICAL: Spontaneously opens his eyes. No tracking noted. Does not follow any commands. Bilateral upper and lower extremity contractures with muscle atrophy. A/P Assessment and Plan 1)Resp failure s/p trach 2)Encephalopathy 3)UTI 4)Anemia 5)CAD 6)Hx Cardiac arrest in July 7)DM 8)Dementia, seizure disorder 9)Hx Schizophrenia Neuro: Monitor neuro status, avoid sedatives - Dr. Prasad-neurology, EEG showing PLEDs, no seizure activity daughter refusing Depakote and Keppra Unclear what baseline is since patient had 2 cardiac arrests over at [facility]. Pulm: Continue with oxygen keep sat >92% Bronchodilators, pulm toilet, trach care 10/06 T-piece trials initiated CV: Monitor HR and BP keep MAP>65mmHg On Coreg 12.5mg BID, Lisinopril 10mg daily, ASA 81 mg daily :Monitor renal function, electrolytes replacement protocol. GI: On tube feeds via PEG tube-Jevity 1.5@60ml/hr ID:Monitor for signs of infections ( Fever, WBC) d/c Tobra nebs ( has been on it since 09/21) 10/02 Urine cx: concetta Tropicalis- On Diflucan Heme: Monitor CBC Endo: Euglycemic ,SSI if needed for glycemic control GI prophylaxis- On Protonix 40mg daily DVT prophylaxis- Heparin Sq Access: PICC line. Patient remains full CODE STATUS at this time. Case management following for LTAC placement for vent weaning. Level 3 Discussed with SHOW GIRL at bedside Physician Ashli Vasquez MD October 07, 2016 13:59
[2016-10-07] MEDS: TAMSULOSIN HCL 0.4 MG CAP PO SCH (16:00)
[2016-10-07] MEDS: FLUCONAZOLE 200 MG PREMIX BAG 100 ML IV SCH (16:00)
[2016-10-07] MEDS: SODIUM CHLOR 0.9% 1000 ML INJ 1,000 ML IV SCH (16:25)
[2016-10-08] VITALS (14 sets, daily range): BP systolic 121–151; BP diastolic 69–87; PULSE 75–87; RESP 18–25; TEMP 97.6–98.5; O2SAT 94–100
[2016-10-08] MEDS: CHLORHEXIDINE GLUCONATE 2 % 1 PACK (2 CLOTHS)(taper/protocol) TOPICAL SCH (04:00)
[2016-10-08] MEDS: HEPARIN SODIUM - SQ 10,000 UNITS/ML VIAL SQ SCH ×3 (05:32→21:09)
[2016-10-08] MEDS: METOCLOPRAMIDE HCL 10 MG/2 ML VIAL IV PUSH SCH ×3 (05:32→21:08)
[2016-10-08] MEDS: LISINOPRIL 10 MG TAB PEG SCH (09:32)
[2016-10-08] MEDS: CARVEDILOL 12.5 MG TAB PEG SCH ×2 (09:33→21:07)
[2016-10-08] MEDS: GLYCOPYRROLATE 1 MG TAB PEG SCH ×3 (09:33→17:16)
[2016-10-08] MEDS: PANTOPRAZOLE SODIUM 40 MG VIAL IV PUSH SCH (09:33)
[2016-10-08] MEDS: ASPIRIN 81 MG CHEW TAB PEG SCH (09:33)
[2016-10-08] MEDS: SODIUM CHLORIDE 0.9% FLUSH 10 ML FLUSH IV FLUSH SCH ×3 (09:34→21:07)
--- NOTE | 2016-10-08 13:08 | HHI.CCPN ---
Subjective Remarks/Hospital Course 09/22: Patient was transferred from [facility] to [facility] in [place] on July 01, 2016. He was admitted to our hospital on June 30, 2016. Patient is a trach dependent and PEG dependent patient since about 2010 when we first saw him at our hospital. In June of this year, he presented to our emergency room and was admitted to the senior j2ee developer service. He was having blood clots through his PEG tube as well with respiratory failure requiring ventilator support. He has had history of tracheomalacia with tracheal stent placed in [facility] about 2 years prior. Subsequent workup here in June revealed his tracheal stent 80%occlusion with debris versus mass. Therapeutic bronchoscopy was done here which shows near complete occlusion of tracheal stent with organized clots and mucous. He was managed overnight by senior j2ee developer team and was transferred to [facility] because of this tracheal stent occlusion with hemoptysis. Patient was managed at [facility] for this tracheal stent occlusion and underwent multiple bronchoscopies and tracheostomy revision and tracheal stent revision with new stent placement. He also had cardiac arrest while in hospital on August 13, 2016 and August 14, 2016. He required ventilator support during the hospitalization and currently on FiO2 of 28% through trach. He was managed there for pseudomonas pneumonia with colonization and MRSA from bronchial lavage. 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 He was also managed for massive distention of the colon suspicious for volvulus versus ileus. He was finally stabilized and managed on PCU service at present and transferred back to [facility] on 09/20/16 when he was admitted by the hospitalist service to the floor on [facility]. This morning patient was noted to be lethargic and an ABG revealed PCO2 in the 80s. He was transferred to [facility] with critical care consult being requested by Dr. Chen. He was placed on mechanical ventilation. I evaluated the patient shortly following his arrival. History was obtained by reviewing records and discussion with Dr. Chen. 09/23: Remains encephalopathic on mechanical ventilation via tracheostomy. Tube feeds Resumed yesterday and tolerating well currently. 09/24: Remains encephalopathic on mechanical ventilation via tracheostomy. Blood pressure running high. Increased Coreg and started lisinopril. 09/25: Remains encephalopathic, on mechanical ventilation via tracheostomy. Tolerating tube feeds. Continue C Pap trials daily. 09/26: Remains encephalopathic, on mechanical ventilation via tracheostomy. Having apneic episodes with C Pap trials today. Tolerating tube feeds. 09/27: Remains encephalopathic, and mechanical ventilation via tracheostomy. C Pap/T piece trials as tolerated. 09/28: Continues to remain encephalopathic. Unsuccessful CPAP trials, tolerating tube feeds minimal residuals. 09/29: Tmax 98.4. No change in neurological status. CPAP trials continued but unsuccessful. 09/30: Afebrile. Remains encephalopathic. Patient tolerating CPAP trials greater than 4 hours today. Urine output adequate IV fluids discontinued. 10/01: The patient is advancing on CPAP trials greater than 4 hours today. No change in neurological status. Urine output adequate IV fluids discontinued. 10/02: Family daughter request stating that Keppra be held and continues to refuse Depakote. The patient was maintained on CPAP trials for approximately 4 hours yesterday. The patient was noted to have an elevation in temperature, cultures were obtained. 10/03: Remains encephalopathic. Reconsultation with wound care nurse noted new left area of sacral decubitus, orders for treatment instituted. Keppra and Depakote were placed on hold on the monitor due to refusal from family to allow patient to receive medication. The patient continues on CPAP trials. 10/04: The patient's daughter was noted to be at the bedside. New wound care instructions were implemented. Patient was noted to have 2 lesions on the posterior occiput that will be reevaluated by the wound care nurse. The patient remains encephalopathic. 10/05: Afebrile. The patient was noted to have Concetta tropicalis and urine cultures, Diflucan initiated. The patient remains encephalopathic. The patient continues on CPAP trials. 10/06 No acute events overnight. On TP's with 28% FIO2 with good sats. Afebrile. 10/07: Afebrile .Patient's gastric tube consists continually clog. GI consulted, gastric tube placed. Patient was placed on TPiece yesterday, doing well. 10/08: The patient continues on T piece today, continues O2 saturation of 97%. No acute issues overnight. He remains encephalopathic. Objective Vital Signs Date Time Temp Pulse Resp B/P Pulse Ox O2 Delivery O2 Flow Rate FiO2 10/08/16 07:49 97 T-piece 6.00 28 10/08/16 06:00 83 10/08/16 04:00 97.6 22 139/87 Intake and Output 10/07/16 10/07/16 10/08/16 08:00 16:00 00:00 Intake Total 578 ml 256 ml 275 ml Output Total 445 ml 1000 ml 320 ml Balance 133 ml -744 ml -45 ml Result Diagram: 10/07/16 0351 10/07/16 0351 Imaging Last Impressions Chest X-Ray 10/01/16 0600 Signed Impressions: Service Date/Time: Saturday, October 01, 2016 03:32 - CONCLUSION: Cardiomegaly with perihilar airspace disease, slightly improved. Zach Herzog MD Objective Remarks 154/90 P 81 O2 saturation 97% on FiO2 of 28% Physical Exam GENERAL: This is an elderly gentleman, noncommunicative, trach dependent, PEG dependent SKIN: Sacral decubiti with wound packing. 2 lesions occipital area, no drainage HEAD: Atraumatic. Normocephalic. Posterior pinpoint skin lesions noted on the occipital area EYES: Left-sided ptosis No scleral icterus. No injection or drainage. ENT: Nose without bleeding, purulent drainage or septal hematoma Airway patent. Tracheostomy in place NECK: Trachea midline. No JVD CARDIOVASCULAR: Regular rate and rhythm without murmurs, gallops, or rubs. RESPIRATORY: On T- piece via tracheostomy, Bilaterally decreased air entry GASTROINTESTINAL: Abdomen soft, non-tender, nondistended.No guarding. MUSCULOSKELETAL: Bilateral lower extremity contracture. Atrophic. No calf asymmetry. NEUROLOGICAL: Spontaneously opens his eyes. No tracking noted. Does not follow any commands. Bilateral upper and lower extremity contractures with muscle atrophy. A/P Assessment and Plan 1)Resp failure s/p trach 2)Encephalopathy 3)UTI 4)Anemia 5)CAD 6)Hx Cardiac arrest in July 7)DM 8)Dementia, seizure disorder 9)Hx Schizophrenia Neuro: Monitor neuro status, avoid sedatives - Dr. Prasad-neurology, EEG showing PLEDs, no seizure activity daughter refusing Depakote and Keppra Unclear what baseline is since patient had 2 cardiac arrests over at [facility]. Pulm: Continue with oxygen keep sat >92% Bronchodilators, pulm toilet, trach care 10/06 T-piece trials initiated CV: Monitor HR and BP keep MAP>65mmHg On Coreg 12.5mg BID, Lisinopril 10mg daily, ASA 81 mg daily :Monitor renal function, electrolytes replacement protocol. GI: On tube feeds via PEG tube-Jevity 1.5@60ml/hr ID:Monitor for signs of infections ( Fever, WBC) d/c Tobra nebs ( has been on it since 09/21) 10/02 Urine cx: concetta Tropicalis- On Diflucan Skin: Continue wound care for sacral and occipital area Heme: Monitor CBC Endo: Euglycemic ,SSI if needed for glycemic control GI prophylaxis- On Protonix 40mg daily DVT prophylaxis- Heparin Sq Access: PICC line. Patient remains full CODE STATUS at this time. Case management following for LTAC placement for vent weaning. Level 3 Discussed with BUTT MAKER at bedside Physician Ashli Vasquez MD October 08, 2016 13:08
[2016-10-08] MEDS: FLUCONAZOLE 200 MG PREMIX BAG 100 ML IV SCH (16:00)
[2016-10-08] MEDS: TAMSULOSIN HCL 0.4 MG CAP PO SCH (16:00)
[2016-10-08] MEDS: RESP: ALBUTEROL 2.5 MG/IPRATROPIUM 0.5 MG NEB (SCH) INH (20:28)
[2016-10-08 21:07] LABS: MEAN CORPUSCULAR HGB CONC 36.2 % (32.0-36.0)
[2016-10-09] VITALS (14 sets, daily range): BP systolic 132–172; BP diastolic 73–97; PULSE 67–97; RESP 22–28; TEMP 97.4–98.4; O2SAT 92–100
[2016-10-09] MEDS: CHLORHEXIDINE GLUCONATE 2 % 1 PACK (2 CLOTHS)(taper/protocol) TOPICAL SCH (04:00)
[2016-10-09 04:17] LABS: MEAN CELL VOLUME 100.3 FL (80.0-100.0); MEAN CORPUSCULAR HEMOGLOBIN 36.3 PG (27.0-34.0); PLATELET COUNT 247 TH/MM3 (150-450); RED BLOOD COUNT 2.49 MIL/MM3 (4.50-5.90); RED CELL DISTRIBUTION WIDTH 20.8 % (11.6-17.2); WHITE BLOOD COUNT 6.5 TH/MM3 (4.0-11.0)
[2016-10-09] MEDS: METOCLOPRAMIDE HCL 10 MG/2 ML VIAL IV PUSH SCH ×3 (04:21→20:34)
[2016-10-09] MEDS: HEPARIN SODIUM - SQ 10,000 UNITS/ML VIAL SQ SCH ×3 (04:22→20:34)
[2016-10-09 04:24] LABS: REVIEW FLAG FINAL
[2016-10-09] MEDS: LABETALOL HCL 100 MG/20 ML VIAL IV PUSH PRN (04:26)
[2016-10-09 04:42] LABS: BICARBONATE 32.8 MEQ/L (21.0-32.0); MAGNESIUM 2.3 MG/DL (1.5-2.5); POTASSIUM 4.8 MEQ/L (3.5-5.1)
[2016-10-09] MEDS: RESP: ALBUTEROL 2.5 MG/IPRATROPIUM 0.5 MG NEB (SCH) INH ×2 (08:39→20:32)
[2016-10-09] MEDS: SODIUM CHLORIDE 0.9% FLUSH 10 ML FLUSH IV FLUSH SCH ×3 (09:35→20:33)
[2016-10-09] MEDS: CARVEDILOL 12.5 MG TAB PEG SCH ×2 (09:35→20:34)
[2016-10-09] MEDS: LISINOPRIL 10 MG TAB PEG SCH (09:35)
[2016-10-09] MEDS: ASPIRIN 81 MG CHEW TAB PEG SCH (09:36)
[2016-10-09] MEDS: GLYCOPYRROLATE 1 MG TAB PEG SCH ×3 (09:36→16:54)
[2016-10-09] MEDS: PANTOPRAZOLE SODIUM 40 MG VIAL IV PUSH SCH (09:36)
--- NOTE | 2016-10-09 10:15 | HHI.PR ---
Subjective Remarks The patient was resting in bed. He would not open his eyes up. He was somewhat grimacing. Discussed with nursing at the bedside. Objective Vitals Vital Signs Date Time Temp Pulse Resp B/P Pulse Ox O2 Delivery O2 Flow Rate FiO2 10/09/16 08:39 96 T-piece 6.00 28 10/09/16 06:00 88 10/09/16 04:00 T-Piece 7.00 28 10/09/16 04:00 74 10/09/16 04:00 97.4 74 24 162/94 99 10/09/16 02:00 67 10/09/16 00:00 72 10/09/16 00:00 T-Piece 7.00 28 10/09/16 00:00 97.4 72 22 141/80 100 10/08/16 22:00 80 10/08/16 20:28 94 T-piece 6.00 28 10/08/16 20:00 81 10/08/16 20:00 98.2 81 24 138/87 100 10/08/16 20:00 T-Piece 7.00 28 10/08/16 18:00 80 10/08/16 16:00 97.6 80 25 130/74 97 10/08/16 16:00 T-Piece 7.00 28 10/08/16 16:00 80 10/08/16 14:00 82 10/08/16 12:00 98.5 75 20 121/69 96 10/08/16 12:00 75 10/08/16 12:00 T-Piece 7.00 28 I/O 10/08/16 10/08/16 10/08/16 10/09/16 10/09/16 10/09/16 07:00 15:00 23:00 07:00 15:00 23:00 Intake Total 438 ml 464 ml 630 ml 490 ml Output Total 400 ml 960.0 ml 250 ml 450 ml Balance 38 ml -496.0 ml 380 ml 40 ml IV Total 73 ml 91 ml 176 ml 69 ml Tube Feeding 305 ml 373 ml 394 ml 361 ml Other 60 ml 60 ml 60 ml Output Urine Total 400 ml 950 ml 250 ml 450 ml Stool Total 0 ml 0 ml Tube Feeding Residual Discard 10.0 ml # Bowel Movements 1 Result Diagram: 10/09/16 0330 10/09/16 0330 Imaging Last Impressions Chest X-Ray 10/07/16 0600 Signed Impressions: Service Date/Time: Friday, October 07, 2016 03:43 - CONCLUSION: The previously noted left lung infiltrate has resolved. No definite new infiltrates are seen. Yoni Guaman MD Abdomen X-Ray 10/07/16 0000 Signed Impressions: Service Date/Time: Friday, October 07, 2016 13:10 - CONCLUSION: G-tube in good position. Zach Herzog MD Objective Remarks GENERAL: This is an elderly gentleman, noncommunicative, trach dependent, PEG dependent. SKIN: Sacral decub with wound packing. 2 lesions occipital area, no drainage. HEAD: Atraumatic. Normocephalic. Posterior pinpoint skin lesions noted on the occipital area. EYES: Left-sided ptosis No scleral icterus. No injection or drainage. ENT: Nose without bleeding, purulent drainage or septal hematoma Airway patent. Tracheostomy in place. NECK: Trachea midline. No JVD. CARDIOVASCULAR: Regular rate and rhythm without murmurs, gallops, or rubs. RESPIRATORY: On T- piece via tracheostomy, Bilaterally decreased air entry GASTROINTESTINAL: Abdomen soft, non-tender, nondistended. No guarding. MUSCULOSKELETAL: Bilateral lower extremity contracture. Atrophic. No calf asymmetry. NEUROLOGICAL: Grimacing. Not opening eyes or tracking. Does not follow any commands. Bilateral upper and lower extremity contractures with muscle atrophy. Medications and IVs Current Medications Medications (Trade) Dose Ordered Sig/Harry Route Start Time Stop Time Status Last Admin (NS Flush) 2 ml UNSCH PRN IV FLUSH 09/20/16 22:30 09/30/16 08:17 (NS Flush) 2 ml BID IV FLUSH 09/21/16 09:00 10/09/16 09:36 (Narcan Inj) 0.4 mg UNSCH PRN IV 09/20/16 22:30 (Tylenol) 650 mg Q6HR PRN PEG 09/21/16 01:30 09/26/16 17:50 (Aspirin Chew) 81 mg DAILY PEG 09/21/16 09:00 10/09/16 09:36 (Dulcolax Supp) 10 mg DAILY PRN RECTAL 09/21/16 01:30 10/08/16 12:26 (Ativan) 2 mg Q8HR PRN PEG 09/21/16 01:30 (Zofran Inj) 4 mg Q4HR PRN IV PUSH 09/21/16 01:30 (D50w (Vial) Inj) 25 ml UNSCH PRN IV PUSH 09/21/16 01:30 (Glucagon Inj) 1 mg UNSCH PRN OTHER 09/21/16 01:30 (Protonix Inj) 40 mg DAILY IV PUSH 09/21/16 10:01 10/09/16 09:36 (Robinul) 1 mg TID PEG 09/21/16 13:00 10/09/16 09:36 (Heparin Inj) 5,000 units Q8HR SQ 09/21/16 14:00 10/09/16 04:22 (Reglan Inj) 5 mg Q8HR IV PUSH 09/21/16 14:00 10/09/16 04:21 (NS Flush) See Protocol DAILY IV FLUSH 09/23/16 09:00 10/09/16 09:35 (NS Flush) See Protocol UNSCH PRN IV FLUSH 09/22/16 13:45 (Heparin Central Flush) See Protocol DAILY IV FLUSH 09/23/16 09:00 10/09/16 09:34 (Heparin Central Flush) See Protocol UNSCH PRN IV FLUSH 09/22/16 13:45 Sodium Chloride UNSCH PRN IV FLUSH 09/22/16 13:45 (NS 1000 ml Inj) 1,000 ml @ 0 mls/hr Q0M IV 09/22/16 17:30 10/07/16 16:25 (Trandate Inj) 10 mg Q4H PRN IV PUSH 09/23/16 14:00 10/09/16 04:26 (Coreg) 12.5 mg BID PEG 09/24/16 15:00 10/09/16 09:35 Lisinopril 10 mg 10 mg DAILY PEG 09/24/16 14:45 10/09/16 09:35 (Diflucan 200 Mg Premix Bag) 100 ml @ 100 mls/hr Q24H IV 10/05/16 16:00 10/08/16 16:00 Miscellaneous Information Patient in critical care unit? Ass... [id number] .XX 10/07/16 08:30 (Chlorhexidine 2% Cloth) 3 pack DAILY@04 TOPICAL 10/08/16 04:00 10/12/16 04:01 10/09/16 04:00 (Chlorhexidine 2% Cloth) 3 pack UNSCH PRN TOPICAL 10/07/16 08:30 10/12/16 08:26 A/P Problem List: (1) [id number] respiratory failure ICD Code: J96.20 Status: Acute (2) Hyperkalemia ICD Code: E87.5 Status: Acute (3) Seizure disorder ICD Code: G40.909 Status: Chronic (4) Tracheostomy in place ICD Code: Z93.0 Status: Chronic (5) S/P percutaneous endoscopic gastrostomy (PEG) tube placement ICD Code: Z93.1 Status: Chronic (6) H/O cardiac arrest ICD Code: Z86.74 Status: Chronic (7) S/P AAA repair ICD Code: Z98.890 Status: Resolved (8) Dementia ICD Code: F03.90 Status: Chronic (9) Schizophrenia ICD Code: F20.9 Status: Chronic (10) Diabetes mellitus type 2, controlled ICD Code: E11.9 Status: Chronic (11) CAD (coronary artery disease) ICD Code: I25.10 Status: Chronic (12) Encephalopathy acute ICD Code: G93.40 Status: Acute Assessment and Plan Cozch-jr-juzzljo respiratory failure Status post tracheostomy since 2009. 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 Tracheal stent occlusion with clots and debris on 07/01/16 status post revision. 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 History of pseudomonas and stenotrophomonas lower respiratory tract infection from his bronchoscopy 07/04/16. Tracheal stent dislodgment status post removal of the fractured stent and placement of new stent on 07/11/16, stent revision on 07/17/16. New stent placement on 08/03. Transferred to the ICU for hypoxemia. S/p antibiotics. - Continue with oxygen keep sat >92%. - Bronchodilators, pulm toilet, trach care. - 5/12 T-piece trials initiated. - follow up with pulmonology. - pt has desaturations which resolve with suctioning. Continue to monitor. Seizure disorder/ Acute metabolic encephalopathy Negative MRI studies. Neurology consult appreciated. EEG showing PLEDs, no seizure activity. Unclear what neurologic baseline is since patient had 2 cardiac arrests over at [facility]. - Continue current anticonvulsants. - daughter refusing Depakote and Keppra. - follow up with neurology. Nutrition S/P percutaneous endoscopic gastrostomy (PEG) tube placement. - On tube feeds via PEG tube-Jevity 1.5@60ml/hr. Cardiac arrest Patient has history of cardiac arrest on August 13 and . Palliative care consult appreciated. - On Coreg 12.5mg BID, Lisinopril 10mg daily, ASA 81 mg daily. - follow up with palliative care. - telemetry. 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 - continue cardiac regimen. Anemia Hgb not far from baseline. - check anemia labs, iron studies, Hemoccult. - follow CBC. Diabetes mellitus type 2 Last A1c in our system was 5.3%. - monitor BMP as needed. GI prophylaxis- On Protonix 40mg daily DVT prophylaxis- Heparin Sq Discharge Planning Awaiting clinical improvement. Problem Qualifiers (1) Dementia: Qualified Code: F03.90 - Dementia without behavioral disturbance, unspecified dementia type (2) Diabetes mellitus type 2, controlled: Qualified Code: E11.8 - Controlled type 2 diabetes mellitus with complication, without long-term current use of insulin Hector Coulter DO October 09, 2016 10:15
[2016-10-09 11:39] LABS: FERRITIN 240 NG/ML (26-388); TRANSFERRIN IRON PROFILE 163 MG/DL (200-360)
[2016-10-09] MEDS: TAMSULOSIN HCL 0.4 MG CAP PO SCH (16:49)
[2016-10-09] MEDS: FLUCONAZOLE 200 MG PREMIX BAG 100 ML IV SCH (16:54)
--- NOTE | 2016-10-09 20:56 | HHI.PR ---
Subjective Remarks 80 YOAA male multiple co morbid condition VDRF,Trach, tracheal stent no fever Tolerates Trach collar Wound care following Small amount of trach secretions CXR improved infilterates Objective Vital Signs Vital Signs Date Time Temp Pulse Resp B/P Pulse Ox O2 Delivery O2 Flow Rate FiO2 10/09/16 20:32 98 T-piece 28 10/09/16 18:00 97 10/09/16 16:00 T-Piece 7.00 28 10/09/16 16:00 98.4 92 22 132/97 97 10/09/16 16:00 88 10/09/16 14:00 80 10/09/16 12:00 77 10/09/16 12:00 T-Piece 7.00 28 10/09/16 12:00 97.8 80 24 144/75 96 10/09/16 10:00 86 10/09/16 08:39 96 T-piece 6.00 28 10/09/16 08:00 T-Piece 7.00 28 10/09/16 08:00 98.0 89 22 132/73 97 10/09/16 08:00 86 10/09/16 06:00 88 10/09/16 04:00 T-Piece 7.00 28 10/09/16 04:00 74 10/09/16 04:00 97.4 74 24 162/94 99 10/09/16 02:00 67 10/09/16 00:00 72 10/09/16 00:00 T-Piece 7.00 28 10/09/16 00:00 97.4 72 22 141/80 100 10/08/16 22:00 80 I/O 10/08/16 10/08/16 10/08/16 10/09/16 10/09/16 10/09/16 07:00 15:00 23:00 07:00 15:00 23:00 Intake Total 438 ml 464 ml 630 ml 490 ml 1707 ml Output Total 400 ml 960.0 ml 250 ml 450 ml 500 ml Balance 38 ml -496.0 ml 380 ml 40 ml 1207 ml IV Total 73 ml 91 ml 176 ml 69 ml 961 ml Tube Feeding 305 ml 373 ml 394 ml 361 ml 546 ml Other 60 ml 60 ml 60 ml 200 ml Output Urine Total 400 ml 950 ml 250 ml 450 ml 500 ml Stool Total 0 ml 0 ml Tube Feeding Residual Discard 10.0 ml # Bowel Movements 1 Result Diagram: 10/09/1632910/09/16329 Objective Remarks GENERAL: Elderly male, on Vent SKIN: Warm and dry. HEAD: Normocephalic. EYES: No scleral icterus. No injection or drainage. NECK: Supple, trachea midline. No JVD or lymphadenopathy. Has trach CARDIOVASCULAR: Regular rate and rhythm without murmurs, gallops, or rubs. RESPIRATORY: Breath sounds equal bilaterally. No accessory muscle use. GASTROINTESTINAL: Abdomen soft, non-tender, nondistended. PEG tube in place MUSCULOSKELETAL: No cyanosis, or edema. BACK: Nontender without obvious deformity. No CVA tenderness. A/P Assessment and Plan VDRF Trach Tracheal stent Sz disorder S/P AAA repair S/P cardiac arrest PLAN: Trach care Aerosol nebs TF Cont trach collar Wound care Cont Daron Heredia MD October 09, 2016 20:56
[2016-10-09] MEDS: HYOSCYAMINE SOLN 0.125 MG/ML 15 ML BTL PO PRN (21:09)
[2016-10-10] VITALS (14 sets, daily range): BP systolic 109–167; BP diastolic 62–93; PULSE 67–93; RESP 22–27; TEMP 97.6–98.7; O2SAT 95–100
[2016-10-10] MEDS: CHLORHEXIDINE GLUCONATE 2 % 1 PACK (2 CLOTHS)(taper/protocol) TOPICAL SCH (01:34)
[2016-10-10] MEDS: HYOSCYAMINE SOLN 0.125 MG/ML 15 ML BTL PO PRN ×3 (01:34→23:42)
[2016-10-10] MEDS: METOCLOPRAMIDE HCL 10 MG/2 ML VIAL IV PUSH SCH ×3 (05:49→21:10)
[2016-10-10] MEDS: HEPARIN SODIUM - SQ 10,000 UNITS/ML VIAL SQ SCH ×3 (05:49→21:10)
[2016-10-10] MEDS: SODIUM CHLORIDE 0.9% FLUSH 10 ML FLUSH IV FLUSH SCH ×3 (09:00→21:10)
[2016-10-10] MEDS: GLYCOPYRROLATE 1 MG TAB PEG SCH ×3 (09:10→16:29)
[2016-10-10] MEDS: ASPIRIN 81 MG CHEW TAB PEG SCH (09:10)
[2016-10-10] MEDS: PANTOPRAZOLE SODIUM 40 MG VIAL IV PUSH SCH (09:10)
[2016-10-10] MEDS: LISINOPRIL 10 MG TAB PEG SCH (09:10)
[2016-10-10] MEDS: CARVEDILOL 12.5 MG TAB PEG SCH ×2 (09:10→21:10)
[2016-10-10] MEDS: RESP: ALBUTEROL 2.5 MG/IPRATROPIUM 0.5 MG NEB (SCH) INH ×2 (10:18→20:28)
--- NOTE | 2016-10-10 13:48 | HHI.PR ---
Subjective Remarks The patient appeared comfortable. He did not appear to be in any respiratory distress. Discussed with nursing. Objective Vitals Vital Signs Date Time Temp Pulse Resp B/P Pulse Ox O2 Delivery O2 Flow Rate FiO2 10/10/16 10:25 96 T-piece 5.00 28 10/10/16 10:00 75 10/10/16 08:00 97.9 79 26 136/81 97 10/10/16 08:00 78 10/10/16 08:00 97 T-Piece 7.00 28 10/10/16 06:00 80 10/10/16 04:00 100 T-Piece 7.00 28 10/10/16 04:00 76 10/10/16 04:00 98.2 76 27 148/80 100 10/10/16 02:00 79 10/10/16 00:00 95 T-Piece 7.00 28 10/10/16 00:00 86 10/10/16 00:00 98.6 86 24 132/78 95 10/09/16 22:00 81 10/09/16 20:32 98 T-piece 28 10/09/16 20:00 98.4 97 28 172/89 92 10/09/16 20:00 97 10/09/16 20:00 92 T-Piece 7.00 28 10/09/16 18:00 97 10/09/16 16:00 T-Piece 7.00 28 10/09/16 16:00 98.4 92 22 132/97 97 10/09/16 16:00 88 10/09/16 14:00 80 I/O 10/09/16 10/09/16 10/09/16 10/10/16 10/10/16 10/10/16 07:00 15:00 23:00 07:00 15:00 23:00 Intake Total 490 ml 1707 ml 597 ml 636 ml Output Total 450 ml 500 ml 500 ml 500 ml Balance 40 ml 1207 ml 97 ml 136 ml IV Total 69 ml 961 ml 157 ml 76 ml Tube Feeding 361 ml 546 ml 380 ml 440 ml Other 60 ml 200 ml 60 ml 120 ml Output Urine Total 450 ml 500 ml 500 ml 500 ml # Bowel Movements 1 0 1 Result Diagram: 10/09/16 0330 10/09/16 033 Imaging Last Impressions Chest X-Ray 10/07/16 06 Signed Impressions: Service Date/Time: Friday, October 07, 2016 03:43 - CONCLUSION: The previously noted left lung infiltrate has resolved. No definite new infiltrates are seen. Yoni Guaman MD Abdomen X-Ray 10/07/16 0000 Signed Impressions: Service Date/Time: Friday, October 07, 2016 13:10 - CONCLUSION: G-tube in good position. Zach Herzog MD Objective Remarks GENERAL: This is an elderly gentleman, noncommunicative, trach dependent, PEG dependent. SKIN: Sacral decub with wound packing. 2 lesions occipital area, no drainage. HEAD: Atraumatic. Normocephalic. Posterior pinpoint skin lesions noted on the occipital area. EYES: Left-sided ptosis No scleral icterus. No injection or drainage. ENT: Nose without bleeding, purulent drainage or septal hematoma Airway patent. Tracheostomy in place. NECK: Trachea midline. No JVD. CARDIOVASCULAR: Regular rate and rhythm without murmurs, gallops, or rubs. RESPIRATORY: On T- piece via tracheostomy, Bilaterally decreased air entry GASTROINTESTINAL: Abdomen soft, non-tender, some distention noted. No guarding. MUSCULOSKELETAL: Bilateral lower extremity contracture. Atrophic. No calf asymmetry. NEUROLOGICAL: Not opening eyes or tracking. Does not follow any commands. Bilateral upper and lower extremity contractures with muscle atrophy. Medications and IVs Current Medications Medications (Trade) Dose Ordered Sig/Harry Route Start Time Stop Time Status Last Admin (NS Flush) 2 ml UNSCH PRN IV FLUSH 09/20/16 22:30 09/30/16 08:17 (NS Flush) 2 ml BID IV FLUSH 09/21/16 09:00 10/10/16 09:00 (Narcan Inj) 0.4 mg UNSCH PRN IV 09/20/16 22:30 (Tylenol) 650 mg Q6HR PRN PEG 09/21/16 01:30 09/26/16 17:50 (Aspirin Chew) 81 mg DAILY PEG 09/21/16 09:00 10/10/16 09:10 (Dulcolax Supp) 10 mg DAILY PRN RECTAL 09/21/16 01:30 10/08/16 12:26 (Ativan) 2 mg Q8HR PRN PEG 09/21/16 01:30 (Zofran Inj) 4 mg Q4HR PRN IV PUSH 09/21/16 01:30 (D50w (Vial) Inj) 25 ml UNSCH PRN IV PUSH 09/21/16 01:30 (Glucagon Inj) 1 mg UNSCH PRN OTHER 09/21/16 01:30 (Protonix Inj) 40 mg DAILY IV PUSH 09/21/16 10:01 10/10/16 09:10 (Robinul) 1 mg TID PEG 09/21/16 13:00 10/10/16 13:32 (Heparin Inj) 5,000 units Q8HR SQ 09/21/16 14:00 10/10/16 13:32 (Reglan Inj) 5 mg Q8HR IV PUSH 09/21/16 14:00 10/10/16 13:33 (NS Flush) See Protocol DAILY IV FLUSH 09/23/16 09:00 10/10/16 09:09 (NS Flush) See Protocol UNSCH PRN IV FLUSH 09/22/16 13:45 (Heparin Central Flush) See Protocol DAILY IV FLUSH 09/23/16 09:00 10/10/16 09:09 (Heparin Central Flush) See Protocol UNSCH PRN IV FLUSH 09/22/16 13:45 Sodium Chloride UNSCH PRN IV FLUSH 09/22/16 13:45 (NS 1000 ml Inj) 1,000 ml @ 0 mls/hr Q0M IV 09/22/16 17:30 10/07/16 16:25 (Trandate Inj) 10 mg Q4H PRN IV PUSH 09/23/16 14:00 10/09/16 04:26 (Coreg) 12.5 mg BID PEG 09/24/16 15:00 10/10/16 09:10 Lisinopril 10 mg 10 mg DAILY PEG 09/24/16 14:45 10/10/16 09:10 (Diflucan 200 Mg Premix Bag) 100 ml @ 100 mls/hr Q24H IV 10/05/16 16:00 10/09/16 16:54 Miscellaneous Information Patient in critical care unit? Ass... Q361D .XX 10/07/16 08:30 (Chlorhexidine 2% Cloth) 3 pack DAILY@04 TOPICAL 10/08/16 04:00 10/12/16 04:01 10/10/16 01:34 (Chlorhexidine 2% Cloth) 3 pack UNSCH PRN TOPICAL 10/07/16 08:30 10/12/16 08:26 (Levsin Liq) 0.125 mg Q4H PRN PO 10/09/16 18:15 10/10/16 09:12 A/P Problem List: (1) Hvuwc-kj-idqisqb respiratory failure ICD Code: J96.20 Status: Acute (2) Hyperkalemia ICD Code: E87.5 Status: Acute (3) Seizure disorder ICD Code: G40.909 Status: Chronic (4) Tracheostomy in place ICD Code: Z93.0 Status: Chronic (5) S/P percutaneous endoscopic gastrostomy (PEG) tube placement ICD Code: Z93.1 Status: Chronic (6) H/O cardiac arrest ICD Code: Z86.74 Status: Chronic (7) S/P AAA repair ICD Code: Z98.890 Status: Resolved (8) Dementia ICD Code: F03.90 Status: Chronic (9) Schizophrenia ICD Code: F20.9 Status: Chronic (10) Diabetes mellitus type 2, controlled ICD Code: E11.9 Status: Chronic (11) CAD (coronary artery disease) ICD Code: I25.10 Status: Chronic (12) Encephalopathy acute ICD Code: G93.40 Status: Acute Assessment and Plan Qnsfq-xe-zlrqwbd respiratory failure Status post tracheostomy since 2009. 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 Tracheal stent occlusion with clots and debris on 07/01/16 status post revision. 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 History of pseudomonas and stenotrophomonas lower respiratory tract infection from his bronchoscopy 07/04/16. Tracheal stent dislodgment status post removal of the fractured stent and placement of new stent on 07/11/16, stent revision on 07/17/16. New stent placement on 08/03. Transferred to the ICU for hypoxemia. S/p antibiotics. - Continue with oxygen keep sat >92%. - Bronchodilators, pulm toilet, trach care. - 5/12 T-piece trials initiated. - follow up with pulmonology. - pt has desaturations which resolve with suctioning. Continue to monitor. Seizure disorder/ Acute metabolic encephalopathy Negative MRI studies. Neurology consult appreciated. EEG showing PLEDs, no seizure activity. Unclear what neurologic baseline is since patient had 2 cardiac arrests over at [facility]. - Continue current anticonvulsants. - daughter refusing Depakote and Keppra. - follow up with neurology. Nutrition S/P percutaneous endoscopic gastrostomy (PEG) tube placement. - On tube feeds via PEG tube-Jevity 1.5@60ml/hr. Cardiac arrest Patient has history of cardiac arrest on August 13 and . Palliative care consult appreciated. - On Coreg 12.5mg BID, Lisinopril 10mg daily, ASA 81 mg daily. - follow up with palliative care. - telemetry. 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 - continue cardiac regimen. Anemia Hgb not far from baseline. Iron studies noted. B12 and folic acid levels elevated. Likely anemia of chronic disease. - check Hemoccult. - follow CBC. Diabetes mellitus type 2 Last A1c in our system was 5.3%. - monitor BMP as needed. Abdominal distention Noted on exam 10/10/16. - Check a KUB. - Bowel regimen. GI prophylaxis- On Protonix 40mg daily DVT prophylaxis- Heparin Sq Discharge Planning Awaiting clinical improvement. Problem Qualifiers (1) Dementia: Qualified Code: F03.90 - Dementia without behavioral disturbance, unspecified dementia type (2) Diabetes mellitus type 2, controlled: Qualified Code: E11.8 - Controlled type 2 diabetes mellitus with complication, without long-term current use of insulin Hector Coulter DO October 10, 2016 13:48
--- NOTE | 2016-10-10 16:01 | HHI.HCPN ---
Spoke with daughter Libby to provide support and inquire about questions/ concerns she has. She did not wish to engage in much conversation. She reports "the doctors are waiting for him to be medically stable and the social services assistant at the [facility] will have everything in place for him to come home". Provided emotional support. Palliative care will be available as needed to further address goals of care and provide support. Suly Mason, EN[employer] October 10, 2016 16:01
[2016-10-10] MEDS: FLUCONAZOLE 200 MG PREMIX BAG 100 ML IV SCH (16:29)
[2016-10-10] MEDS: TAMSULOSIN HCL 0.4 MG CAP PO SCH (16:29)
--- NOTE | 2016-10-10 16:48 | RADRPT ---
EXAM DATE/TIME: 10/10/2016 13:59 [place] COMPARISON: ABDOMEN KUB ONLY, October 07, 2016, 13:10. INDICATIONS : Abdominal distention MEDICAL HISTORY : Diabetes mellitus type II. prostate cancer, COPD, AAA SURGICAL HISTORY : Umbilical hernia repair. G-tube, Aortic stent ENCOUNTER: Subsequent ACUITY: 1 month PAIN SCORE: Non-responsive. LOCATION: Bilateral abdomen FINDINGS: 2 portable supine views of the abdomen reveal oral contrast throughout a normal caliber colon. This i s seen to the level of the rectosigmoid junction. No dilated loops of bowel observed. Coils are seen involving the right pelvis. An endograft is seen within the infrarenal aorta. Gastrostomy tube overli es the epigastrium. A scoliotic and degenerative spine. CONCLUSION: 1. Normal bowel gas pattern. 2. Aortic endograft. Jace Mason Jr., MD on October 10, 2016 at 16:44 Board Certified Radiologist. This report was verified electronically.
--- NOTE | 2016-10-10 20:34 | HHI.PR ---
Subjective Remarks 80 YOAA male multiple co morbid condition VDRF,Trach, tracheal stent no fever Tolerates Trach collar Small amount of trach secretions CXR improved infilterates Objective Vital Signs Vital Signs Date Time Temp Pulse Resp B/P Pulse Ox O2 Delivery O2 Flow Rate FiO2 10/10/16 20:29 98 T-piece 6.00 28 10/10/16 18:00 67 10/10/16 16:00 73 10/10/16 16:00 97 T-Piece 7.00 28 10/10/16 16:00 98.7 93 26 109/62 98 10/10/16 14:00 70 10/10/16 12:00 71 10/10/16 12:00 98.3 71 24 117/70 98 10/10/16 12:00 97 T-Piece 7.00 28 10/10/16 10:25 96 T-piece 5.00 28 10/10/16 10:00 75 10/10/16 08:00 97.9 79 26 136/81 97 10/10/16 08:00 78 10/10/16 08:00 97 T-Piece 7.00 28 10/10/16 06:00 80 10/10/16 04:00 100 T-Piece 7.00 28 10/10/16 04:00 76 10/10/16 04:00 98.2 76 27 148/80 100 10/10/16 02:00 79 10/10/16 00:00 95 T-Piece 7.00 28 10/10/16 00:00 86 10/10/16 00:00 98.6 86 24 132/78 95 10/09/16 22:00 81 I/O 10/09/16 10/09/16 10/09/16 10/10/16 10/10/16 10/10/16 07:00 15:00 23:00 07:00 15:00 23:00 Intake Total 490 ml 907 ml 597 ml 636 ml 1005 ml Output Total 450 ml 500 ml 500 ml 500 ml 350 ml Balance 40 ml 407 ml 97 ml 136 ml 655 ml IV Total 69 ml 161 ml 157 ml 76 ml 120 ml Tube Feeding 361 ml 546 ml 380 ml 440 ml 685 ml Other 60 ml 200 ml 60 ml 120 ml 200 ml Output Urine Total 450 ml 500 ml 500 ml 500 ml 350 ml # Bowel Movements 1 0 1 Result Diagram: 10/09/1632910/09/16329 Objective Remarks GENERAL: Elderly male, on Vent SKIN: Warm and dry. HEAD: Normocephalic. EYES: No scleral icterus. No injection or drainage. NECK: Supple, trachea midline. No JVD or lymphadenopathy. Has trach CARDIOVASCULAR: Regular rate and rhythm without murmurs, gallops, or rubs. RESPIRATORY: Breath sounds equal bilaterally. No accessory muscle use. GASTROINTESTINAL: Abdomen soft, non-tender, nondistended. PEG tube in place MUSCULOSKELETAL: No cyanosis, or edema. BACK: Nontender without obvious deformity. No CVA tenderness. A/P Assessment and Plan VDRF Trach Tracheal stent Sz disorder S/P AAA repair S/P cardiac arrest PLAN: Trach care Aerosol nebs TF Cont trach collar Wound care Daron Rock MD October 10, 2016 20:34
[2016-10-10 21:10] LABS: MEAN CORPUSCULAR HGB CONC 40.7 % (32.0-36.0)
[2016-10-11] VITALS (15 sets, daily range): BP systolic 97–168; BP diastolic 64–85; PULSE 70–88; RESP 20–36; TEMP 97.6–98.4; O2SAT 83–100
[2016-10-11] MEDS: CHLORHEXIDINE GLUCONATE 2 % 1 PACK (2 CLOTHS)(taper/protocol) TOPICAL SCH (04:00)
[2016-10-11 05:16] LABS: HEMATOCRIT 21.2 % (39.0-51.0); MEAN CORPUSCULAR HEMOGLOBIN 41.9 PG (27.0-34.0); PLATELET COUNT 242 TH/MM3 (150-450); RED BLOOD COUNT 2.06 MIL/MM3 (4.50-5.90); RED CELL DISTRIBUTION WIDTH 20.2 % (11.6-17.2); WHITE BLOOD COUNT 5.6 TH/MM3 (4.0-11.0)
[2016-10-11 05:22] LABS: REVIEW FLAG FINAL
[2016-10-11] MEDS: HEPARIN SODIUM - SQ 10,000 UNITS/ML VIAL SQ SCH ×3 (05:39→21:41)
[2016-10-11] MEDS: METOCLOPRAMIDE HCL 10 MG/2 ML VIAL IV PUSH SCH ×3 (05:39→21:40)
[2016-10-11 05:41] LABS: BICARBONATE 32.2 MEQ/L (21.0-32.0); MAGNESIUM 2.1 MG/DL (1.5-2.5); POTASSIUM 4.5 MEQ/L (3.5-5.1)
[2016-10-11] MEDS: HYOSCYAMINE SOLN 0.125 MG/ML 15 ML BTL PO PRN (07:53)
[2016-10-11] MEDS: LISINOPRIL 10 MG TAB PEG SCH (07:54)
[2016-10-11] MEDS: ASPIRIN 81 MG CHEW TAB PEG SCH (07:54)
[2016-10-11] MEDS: CARVEDILOL 12.5 MG TAB PEG SCH ×2 (07:54→21:40)
[2016-10-11] MEDS: GLYCOPYRROLATE 1 MG TAB PEG SCH ×3 (07:54→17:16)
[2016-10-11] MEDS: SODIUM CHLORIDE 0.9% FLUSH 10 ML FLUSH IV FLUSH PRN ×2 (07:54)
[2016-10-11] MEDS: PANTOPRAZOLE SODIUM 40 MG VIAL IV PUSH SCH (07:54)
[2016-10-11] MEDS: SODIUM CHLORIDE 0.9% FLUSH 10 ML FLUSH IV FLUSH SCH ×3 (07:55→21:40)
[2016-10-11] MEDS: RESP: ALBUTEROL 2.5 MG/IPRATROPIUM 0.5 MG NEB (SCH) INH ×2 (08:16→20:54)
--- NOTE | 2016-10-11 12:17 | HHI.PR ---
Subjective Remarks The patient was resting comfortably in bed. He would open up his eyes but would not meaningfully track. No acute concerns. Objective Vitals Vital Signs Date Time Temp Pulse Resp B/P Pulse Ox O2 Delivery O2 Flow Rate FiO2 10/11/16 08:18 98 T-piece 35 10/11/16 06:00 76 10/11/16 04:00 98.1 80 28 135/78 100 10/11/16 04:00 100 T-Piece 7.00 28 10/11/16 04:00 80 10/11/16 02:00 71 10/11/16 00:00 70 10/11/16 00:00 98 T-Piece 7.00 28 10/11/16 00:00 98.0 70 22 139/78 98 10/10/16 22:00 76 10/10/16 20:29 98 T-piece 6.00 28 10/10/16 20:00 71 10/10/16 20:00 100 T-Piece 7.00 28 10/10/16 20:00 97.6 71 22 167/93 100 10/10/16 18:00 67 10/10/16 16:00 73 10/10/16 16:00 97 T-Piece 7.00 28 10/10/16 16:00 98.7 93 26 109/62 98 10/10/16 14:00 70 10/10/16 12:00 71 10/10/16 12:00 98.3 71 24 117/70 98 10/10/16 12:00 97 T-Piece 7.00 28 I/O 10/10/16 10/10/16 10/10/16 10/11/16 10/11/16 10/11/16 06:59 14:59 22:59 06:59 14:59 22:59 Intake Total 636 ml 1005 ml 579 ml 612 ml Output Total 500 ml 350 ml 450 ml 350 ml Balance 136 ml 655 ml 129 ml 262 ml IV Total 76 ml 120 ml 129 ml 71 ml Tube Feeding 440 ml 685 ml 330 ml 481 ml Other 120 ml 200 ml 120 ml 60 ml Output Urine Total 500 ml 350 ml 450 ml 350 ml # Bowel Movements 1 1 0 Result Diagram: 10/11/16 0330 10/11/16 0330 Imaging Last Impressions Abdomen X-Ray 10/10/16 0000 Signed Impressions: Service Date/Time: Monday, October 10, 2016 13:59 - CONCLUSION: 1. Normal bowel gas pattern. 2. Aortic endograft. Jace Mason Jr., MD Chest X-Ray 10/07/16 0600 Signed Impressions: Service Date/Time: Friday, October 07, 2016 03:43 - CONCLUSION: The previously noted left lung infiltrate has resolved. No definite new infiltrates are seen. Yoni Guaman MD Objective Remarks GENERAL: This is an elderly gentleman, noncommunicative, trach dependent, PEG dependent. SKIN: Sacral decub with wound packing. 2 lesions occipital area, no drainage. HEAD: Atraumatic. Normocephalic. Posterior pinpoint skin lesions noted on the occipital area. EYES: Left-sided ptosis No scleral icterus. No injection or drainage. ENT: Nose without bleeding, purulent drainage or septal hematoma Airway patent. Tracheostomy in place. NECK: Trachea midline. No JVD. CARDIOVASCULAR: Regular rate and rhythm without murmurs, gallops, or rubs. RESPIRATORY: On T- piece via tracheostomy, Bilaterally decreased air entry GASTROINTESTINAL: Abdomen soft, non-tender, some distention noted. No guarding. MUSCULOSKELETAL: Bilateral lower extremity contracture. Atrophic. No calf asymmetry. NEUROLOGICAL: Opening eyes but not tracking. Does not follow any commands. Bilateral upper and lower extremity contractures with muscle atrophy. Medications and IVs Current Medications Medications (Trade) Dose Ordered Sig/Harry Route Start Time Stop Time Status Last Admin (NS Flush) 2 ml UNSCH PRN IV FLUSH 09/20/16 22:30 10/11/16 07:54 (NS Flush) 2 ml BID IV FLUSH 09/21/16 09:00 10/11/16 07:55 (Narcan Inj) 0.4 mg UNSCH PRN IV 09/20/16 22:30 (Tylenol) 650 mg Q6HR PRN PEG 09/21/16 01:30 09/26/16 17:50 (Aspirin Chew) 81 mg DAILY PEG 09/21/16 09:00 10/11/16 07:54 (Dulcolax Supp) 10 mg DAILY PRN RECTAL 09/21/16 01:30 10/08/16 12:26 (Ativan) 2 mg Q8HR PRN PEG 09/21/16 01:30 (Zofran Inj) 4 mg Q4HR PRN IV PUSH 09/21/16 01:30 (D50w (Vial) Inj) 25 ml UNSCH PRN IV PUSH 09/21/16 01:30 (Glucagon Inj) 1 mg UNSCH PRN OTHER 09/21/16 01:30 (Protonix Inj) 40 mg DAILY IV PUSH 09/21/16 10:01 10/11/16 07:54 (Robinul) 1 mg TID PEG 09/21/16 13:00 10/11/16 07:54 (Heparin Inj) 5,000 units Q8HR SQ 09/21/16 14:00 10/11/16 05:39 (Reglan Inj) 5 mg Q8HR IV PUSH 09/21/16 14:00 10/11/16 05:39 (NS Flush) See Protocol DAILY IV FLUSH 09/23/16 09:00 10/11/16 07:55 (NS Flush) See Protocol UNSCH PRN IV FLUSH 09/22/16 13:45 10/11/16 07:54 (Heparin Central Flush) See Protocol DAILY IV FLUSH 09/23/16 09:00 10/11/16 07:54 (Heparin Central Flush) See Protocol UNSCH PRN IV FLUSH 09/22/16 13:45 Sodium Chloride UNSCH PRN IV FLUSH 09/22/16 13:45 10/11/16 07:54 (NS 1000 ml Inj) 1,000 ml @ 0 mls/hr Q0M IV 09/22/16 17:30 10/07/16 16:25 (Trandate Inj) 10 mg Q4H PRN IV PUSH 09/23/16 14:00 10/09/16 04:26 (Coreg) 12.5 mg BID PEG 09/24/16 15:00 10/11/16 07:54 Lisinopril 10 mg 10 mg DAILY PEG 09/24/16 14:45 10/11/16 07:54 (Diflucan 200 Mg Premix Bag) 100 ml @ 100 mls/hr Q24H IV 10/05/16 16:00 10/10/16 16:29 Miscellaneous Information Patient in critical care unit? Ass... 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 Code: Z93.0 Status: Chronic (5) S/P percutaneous endoscopic gastrostomy (PEG) tube placement ICD Code: Z93.1 Status: Chronic (6) H/O cardiac arrest ICD Code: Z86.74 Status: Chronic (7) S/P AAA repair ICD Code: Z98.890 Status: Resolved (8) Dementia ICD Code: F03.90 Status: Chronic (9) Schizophrenia ICD Code: F20.9 Status: Chronic (10) Diabetes mellitus type 2, controlled ICD Code: E11.9 Status: Chronic (11) CAD (coronary artery disease) ICD Code: I25.10 Status: Chronic (12) Encephalopathy acute ICD Code: G93.40 Status: Acute Assessment and Plan Vknvj-uj-cisrwqg respiratory failure Status post tracheostomy since 2009. 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 Tracheal stent occlusion with clots and debris on 07/01/16 status post revision. 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 History of pseudomonas and stenotrophomonas lower respiratory tract infection from his bronchoscopy 07/04/16. Tracheal stent dislodgment status post removal of the fractured stent and placement of new stent on 07/11/16, stent revision on 07/17/16. New stent placement on 08/03. Transferred to the ICU for hypoxemia. S/p antibiotics. - Continue with oxygen keep sat >92%. - Bronchodilators, pulm toilet, trach care. Levsin and glycopyrrolate available. - 10/06 T-piece trials initiated. - follow up with pulmonology. - pt has desaturations which resolve with suctioning. Continue to monitor. Seizure disorder/ Acute metabolic encephalopathy Negative MRI studies. Neurology consult appreciated. EEG showing PLEDs, no seizure activity. Unclear what neurologic baseline is since patient had 2 cardiac arrests over at [facility]. - Continue current anticonvulsants. - daughter refusing Depakote and Keppra. - follow up with neurology. Nutrition S/P percutaneous endoscopic gastrostomy (PEG) tube placement. - On tube feeds via PEG tube-Jevity 1.5@60ml/hr. Cardiac arrest Patient has history of cardiac arrest on August 13 and . Palliative care consult appreciated. - On Coreg 12.5mg BID, Lisinopril 10mg daily, ASA 81 mg daily. - follow up with palliative care. - telemetry. 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 - continue cardiac regimen. Anemia Hgb not far from baseline. Iron studies noted. B12 and folic acid levels elevated. Likely anemia of chronic disease. - check Hemoccult. - follow CBC. Diabetes mellitus type 2 Last A1c in our system was 5.3%. Glucose 117 10/11. - monitor BMP as needed. Abdominal distention Noted on exam 10/10/16. KUB unremarkable. - Bowel regimen. - monitor. GI prophylaxis- On Protonix 40mg daily DVT prophylaxis- Heparin Sq Discharge Planning Awaiting clinical improvement. Problem Qualifiers (1) Dementia: Qualified Code: F03.90 - Dementia without behavioral disturbance, unspecified dementia type (2) Diabetes mellitus type 2, controlled: Qualified Code: E11.8 - Controlled type 2 diabetes mellitus with complication, without long-term current use of insulin Hector Coulter DO October 11, 2016 11:25
[2016-10-11] MEDS: TAMSULOSIN HCL 0.4 MG CAP PO SCH (14:17)
[2016-10-11] MEDS: FLUCONAZOLE 200 MG PREMIX BAG 100 ML IV SCH (14:47)
--- NOTE | 2016-10-11 17:11 | HHI.PR ---
Subjective Remarks 80 YOAA male multiple co morbid condition VDRF,Trach, tracheal stent no fever Tolerates Trach collar Small amount of trach secretions CXR improved infilterates daughter at BS Objective Vital Signs Vital Signs Date Time Temp Pulse Resp B/P Pulse Ox O2 Delivery O2 Flow Rate FiO2 10/11/16 16:00 98.2 74 20 114/68 98 10/11/16 16:00 98 T-Piece 7.00 28 10/11/16 16:00 74 10/11/16 14:00 75 10/11/16 12:00 98.4 73 26 117/64 100 10/11/16 12:00 73 10/11/16 12:00 100 T-Piece 7.00 28 10/11/16 11:00 98.4 71 24 107/73 97 10/11/16 10:00 75 10/11/16 10:00 75 28 97/64 97 10/11/16 09:00 72 25 100 10/11/16 08:18 98 T-piece 35 10/11/16 08:00 98.0 88 28 168/85 100 10/11/16 08:00 100 T-Piece 7.00 28 10/11/16 08:00 88 10/11/16 06:00 76 10/11/16 04:00 98.1 80 28 135/78 100 10/11/16 04:00 100 T-Piece 7.00 28 10/11/16 04:00 80 10/11/16 02:00 71 10/11/16 00:00 70 10/11/16 00:00 98 T-Piece 7.00 28 10/11/16 00:00 98.0 70 22 139/78 98 10/10/16 22:00 76 10/10/16 20:29 98 T-piece 6.00 28 10/10/16 20:00 71 10/10/16 20:00 100 T-Piece 7.00 28 10/10/16 20:00 97.6 71 22 167/93 100 10/10/16 18:00 67 I/O 10/10/16 10/10/16 10/10/16 10/11/16 10/11/16 10/11/16 07:00 15:00 23:00 07:00 15:00 23:00 Intake Total 636 ml 1005 ml 579 ml 612 ml 775 ml Output Total 500 ml 350 ml 450 ml 350 ml 450 ml Balance 136 ml 655 ml 129 ml 262 ml 325 ml IV Total 76 ml 120 ml 129 ml 71 ml 100 ml Tube Feeding 440 ml 685 ml 330 ml 481 ml 555 ml Other 120 ml 200 ml 120 ml 60 ml 120 ml Output Urine Total 500 ml 350 ml 450 ml 350 ml 450 ml # Bowel Movements 1 1 0 0 Result Diagram: 10/11/1632910/11/16329 Objective Remarks GENERAL: Elderly male, on Vent SKIN: Warm and dry. HEAD: Normocephalic. EYES: No scleral icterus. No injection or drainage. NECK: Supple, trachea midline. No JVD or lymphadenopathy. Has trach CARDIOVASCULAR: Regular rate and rhythm without murmurs, gallops, or rubs. RESPIRATORY: Breath sounds equal bilaterally. No accessory muscle use. GASTROINTESTINAL: Abdomen soft, non-tender, nondistended. PEG tube in place MUSCULOSKELETAL: No cyanosis, or edema. BACK: Nontender without obvious deformity. No CVA tenderness. A/P Assessment and Plan VDRF Trach Tracheal stent Sz disorder S/P AAA repair S/P cardiac arrest PLAN: Trach care Aerosol nebs TF Cont trach collar Wound care Daughter plans to take him home rather than SNF Daron Rock MD October 11, 2016 17:11
[2016-10-12] VITALS (19 sets, daily range): BP systolic 117–155; BP diastolic 69–100; PULSE 80–92; RESP 12–30; TEMP 97.8–99.7; O2SAT 93–100
[2016-10-12] MEDS: CHLORHEXIDINE GLUCONATE 2 % 1 PACK (2 CLOTHS)(taper/protocol) TOPICAL SCH (04:00)
[2016-10-12] MEDS: METOCLOPRAMIDE HCL 10 MG/2 ML VIAL IV PUSH SCH ×3 (06:20→22:21)
[2016-10-12] MEDS: HEPARIN SODIUM - SQ 10,000 UNITS/ML VIAL SQ SCH ×3 (06:21→22:21)
[2016-10-12] MEDS: GLYCOPYRROLATE 1 MG TAB PEG SCH ×3 (07:43→16:44)
[2016-10-12] MEDS: PANTOPRAZOLE SODIUM 40 MG VIAL IV PUSH SCH (07:43)
[2016-10-12] MEDS: CARVEDILOL 12.5 MG TAB PEG SCH ×2 (07:44→22:21)
[2016-10-12] MEDS: ASPIRIN 81 MG CHEW TAB PEG SCH (07:44)
[2016-10-12] MEDS: SODIUM CHLORIDE 0.9% FLUSH 10 ML FLUSH IV FLUSH SCH ×3 (07:44→22:21)
[2016-10-12] MEDS: SODIUM CHLORIDE 0.9% FLUSH 10 ML FLUSH IV FLUSH PRN ×2 (07:44)
[2016-10-12] MEDS: LISINOPRIL 10 MG TAB PEG SCH (07:44)
[2016-10-12] MEDS: RESP: ALBUTEROL 2.5 MG/IPRATROPIUM 0.5 MG NEB (SCH) INH (08:07)
[2016-10-12] MEDS: HYOSCYAMINE SOLN 0.125 MG/ML 15 ML BTL PO PRN (11:55)
--- NOTE | 2016-10-12 13:09 | HHI.PR ---
Subjective Remarks No major overnight events patient is non verbal Patient opens his eyes but would not track Objective Vitals Vital Signs Date Time Temp Pulse Resp B/P Pulse Ox O2 Delivery O2 Flow Rate FiO2 10/12/16 10:00 85 22 142/80 96 10/12/16 10:00 85 10/12/16 09:00 84 26 127/81 98 10/12/16 08:08 94 T-piece 28 10/12/16 08:00 98.1 87 24 155/91 94 10/12/16 08:00 87 10/12/16 08:00 94 T-Piece 7.00 28 10/12/16 07:00 86 26 144/95 99 10/12/16 06:00 84 10/12/16 04:00 82 10/12/16 04:00 96 T-Piece 7.00 28 10/12/16 04:00 97.8 82 12 117/69 96 10/12/16 02:00 83 10/12/16 00:00 100 T-Piece 7.00 28 10/12/16 00:00 98.0 80 22 155/77 100 10/12/16 00:00 80 10/11/16 22:00 77 10/11/16 20:00 71 10/11/16 20:00 97.6 71 24 143/77 99 10/11/16 20:00 99 T-Piece 7.00 28 10/11/16 18:00 71 10/11/16 16:00 98.2 74 20 114/68 98 10/11/16 16:00 98 T-Piece 7.00 28 10/11/16 16:00 74 10/11/16 14:00 75 I/O 10/11/16 10/11/16 10/11/16 10/12/16 10/12/16 10/12/16 07:00 15:00 23:00 07:00 15:00 23:00 Intake Total 612 ml 775 ml 671 ml 704 ml Output Total 350 ml 450 ml 250 ml 700 ml Balance 262 ml 325 ml 421 ml 4 ml IV Total 71 ml 100 ml 156 ml 87 ml Tube Feeding 481 ml 555 ml 395 ml 557 ml Other 60 ml 120 ml 120 ml 60 ml Output Urine Total 350 ml 450 ml 250 ml 700 ml # Bowel Movements 0 0 1 1 Result Diagram: 10/11/16 0330 10/11/16 0330 Imaging Last Impressions Abdomen X-Ray 10/10/16 0000 Signed Impressions: Service Date/Time: Monday, October 10, 2016 13:59 - CONCLUSION: 1. Normal bowel gas pattern. 2. Aortic endograft. Jace Mason Jr., MD Chest X-Ray 10/07/16 0600 Signed Impressions: Service Date/Time: Friday, October 07, 2016 03:43 - CONCLUSION: The previously noted left lung infiltrate has resolved. No definite new infiltrates are seen. Yoni Guaman MD Objective Remarks GENERAL: This is a gentleman, noncommunicative, trach dependent, NAD SKIN: Sacral decubiti with wound packing and discharge HEAD: Atraumatic. Normocephalic. EYES: Left-sided ptosis No scleral icterus. No injection or drainage. ENT: Nose without bleeding, purulent drainage or septal hematoma Airway patent. Tracheostomy in place NECK: Trachea midline. No JVD CARDIOVASCULAR: Regular rate and rhythm without murmurs, gallops, or rubs. RESPIRATORY: Bilateral rhonchi, no wheezing. No crackles auscultated. GASTROINTESTINAL: Abdomen soft, non-tender, nondistended. No guarding. No suprapubic tenderness. PEG in place, no erythema or purulent discharge observed. MUSCULOSKELETAL: Bilateral lower extremity contracture. Atrophic. No calf asymmetry. NEUROLOGICAL: Spontaneously opens his eyes. However not really tracking. Does not follow any commands. Bilateral upper and lower extremity contractures with muscle atrophy. Medications and IVs Current Medications Medications (Trade) Dose Ordered Sig/Harry Route Start Time Stop Time Status Last Admin (NS Flush) 2 ml UNSCH PRN IV FLUSH 09/20/16 22:30 10/12/16 07:44 (NS Flush) 2 ml BID IV FLUSH 09/21/16 09:00 10/12/16 07:44 (Narcan Inj) 0.4 mg UNSCH PRN IV 09/20/16 22:30 (Tylenol) 650 mg Q6HR PRN PEG 09/21/16 01:30 09/26/16 17:50 (Aspirin Chew) 81 mg DAILY PEG 09/21/16 09:00 10/12/16 07:44 (Dulcolax Supp) 10 mg DAILY PRN RECTAL 09/21/16 01:30 10/08/16 12:26 (Ativan) 2 mg Q8HR PRN PEG 09/21/16 01:30 (Zofran Inj) 4 mg Q4HR PRN IV PUSH 09/21/16 01:30 (D50w (Vial) Inj) 25 ml UNSCH PRN IV PUSH 09/21/16 01:30 (Glucagon Inj) 1 mg UNSCH PRN OTHER 09/21/16 01:30 (Protonix Inj) 40 mg DAILY IV PUSH 09/21/16 10:01 10/12/16 07:43 (Robinul) 1 mg TID PEG 09/21/16 13:00 10/12/16 13:10 (Heparin Inj) 5,000 units Q8HR SQ 09/21/16 14:00 10/12/16 13:10 (Reglan Inj) 5 mg Q8HR IV PUSH 09/21/16 14:00 10/12/16 13:10 (NS Flush) See Protocol DAILY IV FLUSH 09/23/16 09:00 10/12/16 07:44 (NS Flush) See Protocol UNSCH PRN IV FLUSH 09/22/16 13:45 10/12/16 07:44 (Heparin Central Flush) See Protocol DAILY IV FLUSH 09/23/16 09:00 10/11/16 07:54 (Heparin Central Flush) See Protocol UNSCH PRN IV FLUSH 09/22/16 13:45 Sodium Chloride UNSCH PRN IV FLUSH 09/22/16 13:45 10/12/16 07:44 (NS 1000 ml Inj) 1,000 ml @ 0 mls/hr Q0M IV 09/22/16 17:30 10/07/16 16:25 (Trandate Inj) 10 mg Q4H PRN IV PUSH 09/23/16 14:00 10/09/16 04:26 (Coreg) 12.5 mg BID PEG 09/24/16 15:00 10/12/16 07:44 Lisinopril 10 mg 10 mg DAILY PEG 09/24/16 14:45 10/12/16 07:44 (Diflucan 200 Mg Premix Bag) 100 ml @ 100 mls/hr Q24H IV 10/05/16 16:00 10/11/16 14:47 Miscellaneous Information Patient in critical care unit? Ass... Q361D .XX 10/07/16 08:30 (Levsin Liq) 0.125 mg Q4H PRN PO 10/09/16 18:15 10/12/16 11:55 (Sodium Chloride) 1 gm BID@18 PO 10/12/16 18:00 Urinary Catheter: No A/P Problem List: (1) Ufxgn-mj-dawbwyv respiratory failure ICD Code: J96.20 Status: Chronic (2) Hyperkalemia ICD Code: E87.5 Status: Resolved (3) Seizure disorder ICD Code: G40.909 Status: Chronic (4) Tracheostomy in place ICD Code: Z93.0 Status: Chronic (5) S/P percutaneous endoscopic gastrostomy (PEG) tube placement ICD Code: Z93.1 Status: Chronic (6) H/O cardiac arrest ICD Code: Z86.74 Status: Chronic (7) S/P AAA repair ICD Code: Z98.890 Status: Resolved (8) Dementia ICD Code: F03.90 Status: Chronic (9) Schizophrenia ICD Code: F20.9 Status: Chronic (10) Diabetes mellitus type 2, controlled ICD Code: E11.9 Status: Chronic (11) CAD (coronary artery disease) ICD Code: I25.10 Status: Chronic (12) Encephalopathy acute ICD Code: G93.40 Status: Chronic Assessment and Plan Hdqkt-zf-wayfske respiratory failure Status post tracheostomy since 2009. 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 Tracheal stent occlusion with clots and debris on 07/01/16 status post revision. 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 History of pseudomonas and stenotrophomonas lower respiratory tract infection from his bronchoscopy 07/04/16. Tracheal stent dislodgment status post removal of the fractured stent and placement of new stent on 07/11/16, stent revision on 07/17/16. New stent placement on 08/03. Transferred to the ICU for hypoxemia. S/p antibiotics. - Continue with oxygen keep sat >92%. - Bronchodilators, pulm toilet, trach care. Levsin and glycopyrrolate available. - 10/06 T-piece trials initiated. - follow up with pulmonology. - pt has desaturations which resolve with suctioning. Continue to monitor. Seizure disorder/ Anoxic encephalopathy Negative MRI studies. Neurology consult appreciated. EEG showing PLEDs, no seizure activity. Unclear what neurologic baseline is since patient had 2 cardiac arrests over at [facility]. - Continue current anticonvulsants. - daughter refusing Depakote and Keppra. - follow up with neurology. Nutrition S/P percutaneous endoscopic gastrostomy (PEG) tube placement. - On tube feeds via PEG tube-Jevity 1.5@60ml/hr and tolerating them well. Cardiac arrest Patient has history of cardiac arrest on August 13 and . Palliative care consult appreciated. - On Coreg 12.5mg BID, Lisinopril 10mg daily, ASA 81 mg daily. - follow up with palliative care. - telemetry. 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 - continue cardiac regimen. Anemia Hgb not far from baseline. Iron studies noted. B12 and folic acid levels elevated. Likely anemia of chronic disease. - check Hemoccult. - follow CBC. Diabetes mellitus type 2 Last A1c in our system was 5.3%. Glucose 117 10/11. - monitor BMP as needed. Abdominal distention Noted on exam 10/10/16. KUB unremarkable. - Bowel regimen. - monitor. GI prophylaxis- On Protonix 40mg daily DVT prophylaxis- Heparin Sq Discharge Planning Patient's daughter wants to take her home. will DC once all needs arranged for patient to go home. Problem Qualifiers (1) Dementia: Qualified Code: F03.90 - Dementia without behavioral disturbance, unspecified dementia type (2) Diabetes mellitus type 2, controlled: Qualified Code: E11.8 - Controlled type 2 diabetes mellitus with complication, without long-term current use of insulin Ezequiel Pelletier MD October 12, 2016 13:09
--- NOTE | 2016-10-12 13:23 | HHI.PR ---
Objective Vitals Vital Signs Date Time Temp Pulse Resp B/P Pulse Ox O2 Delivery O2 Flow Rate FiO2 10/12/16 10:00 85 22 142/80 96 10/12/16 10:00 85 10/12/16 09:00 84 26 127/81 98 10/12/16 08:08 94 T-piece 28 10/12/16 08:00 98.1 87 24 155/91 94 10/12/16 08:00 87 10/12/16 08:00 94 T-Piece 7.00 28 10/12/16 07:00 86 26 144/95 99 10/12/16 06:00 84 10/12/16 04:00 82 10/12/16 04:00 96 T-Piece 7.00 28 10/12/16 04:00 97.8 82 12 117/69 96 10/12/16 02:00 83 10/12/16 00:00 100 T-Piece 7.00 28 10/12/16 00:00 98.0 80 22 155/77 100 10/12/16 00:00 80 10/11/16 22:00 77 10/11/16 20:00 71 10/11/16 20:00 97.6 71 24 143/77 99 10/11/16 20:00 99 T-Piece 7.00 28 10/11/16 18:00 71 10/11/16 16:00 98.2 74 20 114/68 98 10/11/16 16:00 98 T-Piece 7.00 28 10/11/16 16:00 74 10/11/16 14:00 75 I/O 10/11/16 10/11/16 10/11/16 10/12/16 10/12/16 10/12/16 07:00 15:00 23:00 07:00 15:00 23:00 Intake Total 612 ml 775 ml 671 ml 704 ml Output Total 350 ml 450 ml 250 ml 700 ml Balance 262 ml 325 ml 421 ml 4 ml IV Total 71 ml 100 ml 156 ml 87 ml Tube Feeding 481 ml 555 ml 395 ml 557 ml Other 60 ml 120 ml 120 ml 60 ml Output Urine Total 350 ml 450 ml 250 ml 700 ml # Bowel Movements 0 0 1 1 Result Diagram: 10/11/16 0330 10/11/16 0330 Objective Remarks GENERAL: This is a gentleman, noncommunicative, trach dependent, packed dependent SKIN: Sacral decubiti with wound packing and discharge HEAD: Atraumatic. Normocephalic. EYES: Left-sided ptosis No scleral icterus. No injection or drainage. ENT: Nose without bleeding, purulent drainage or septal hematoma Airway patent. Tracheostomy in place NECK: Trachea midline. No JVD CARDIOVASCULAR: Regular rate and rhythm without murmurs, gallops, or rubs. RESPIRATORY: Bilateral rhonchi, no wheezing. No crackles auscultated. GASTROINTESTINAL: Abdomen soft, non-tender, nondistended. No guarding. No suprapubic tenderness. PEG in place, no erythema or purulent discharge observed. MUSCULOSKELETAL: Bilateral lower extremity contracture. Atrophic. No calf asymmetry. NEUROLOGICAL: Spontaneously opens his eyes. However not really tracking. Does not follow any commands. Bilateral upper and lower extremity contractures with muscle atrophy. A/P Problem List: (1) Aakql-yg-owmqmhc respiratory failure ICD Code: J96.20 Status: Acute (2) Hyperkalemia ICD Code: E87.5 Status: Acute (3) Seizure disorder ICD Code: G40.909 Status: Chronic (4) Tracheostomy in place ICD Code: Z93.0 Status: Chronic (5) S/P percutaneous endoscopic gastrostomy (PEG) tube placement ICD Code: Z93.1 Status: Chronic (6) H/O cardiac arrest ICD Code: Z86.74 Status: Chronic (7) S/P AAA repair ICD Code: Z98.890 Status: Resolved (8) Dementia ICD Code: F03.90 Status: Chronic (9) Schizophrenia ICD Code: F20.9 Status: Chronic (10) Diabetes mellitus type 2, controlled ICD Code: E11.9 Status: Chronic (11) CAD (coronary artery disease) ICD Code: I25.10 Status: Chronic (12) Encephalopathy acute ICD Code: G93.40 Status: Acute Assessment and Plan GI prophylaxis: Continue PPI. DVT plexus: SCDs, I will add heparin subcutaneously. 35 minutes of critical care time spent with patient. Discharge Planning Continue to monitor in the medical floor. Patient will need placement into an [facility]. Problem Qualifiers (1) Dementia: Qualified Code: F03.90 - Dementia without behavioral disturbance, unspecified dementia type (2) Diabetes mellitus type 2, controlled: Qualified Code: E11.8 - Controlled type 2 diabetes mellitus with complication, without long-term current use of insulin Ezequiel Pelletier MD October 12, 2016 13:23
[2016-10-12] MEDS: TAMSULOSIN HCL 0.4 MG CAP PO SCH (14:53)
[2016-10-12] MEDS: LABETALOL HCL 100 MG/20 ML VIAL IV PUSH PRN (16:44)
[2016-10-12] MEDS: FLUCONAZOLE 200 MG PREMIX BAG 100 ML IV SCH (16:44)
[2016-10-12] MEDS: SODIUM CHLORIDE 1 GRAM TAB PO SCH (18:52)
--- NOTE | 2016-10-12 19:34 | HHI.PR ---
Subjective Remarks 80 YOAA male multiple co morbid condition VDRF,Trach, tracheal stent no fever Tolerates Trach collar Small amount of trach secretions Objective Vital Signs Vital Signs Date Time Temp Pulse Resp B/P Pulse Ox O2 Delivery O2 Flow Rate FiO2 10/12/16 18:00 90 10/12/16 16:00 98.2 92 28 146/87 99 10/12/16 16:00 92 10/12/16 16:00 99 T-Piece 7.00 28 10/12/16 15:00 89 27 148/86 95 10/12/16 14:00 90 30 93 10/12/16 14:00 90 10/12/16 13:00 84 26 95 10/12/16 12:00 83 10/12/16 12:00 97 T-Piece 7.00 28 10/12/16 12:00 97.9 83 28 120/78 97 10/12/16 11:00 88 18 138/100 95 10/12/16 10:00 85 22 142/80 96 10/12/16 10:00 85 10/12/16 09:00 84 26 127/81 98 10/12/16 08:08 94 T-piece 28 10/12/16 08:00 98.1 87 24 155/91 94 10/12/16 08:00 87 10/12/16 08:00 94 T-Piece 7.00 28 10/12/16 07:00 86 26 144/95 99 10/12/16 06:00 84 10/12/16 04:00 82 10/12/16 04:00 96 T-Piece 7.00 28 10/12/16 04:00 97.8 82 12 117/69 96 10/12/16 02:00 83 10/12/16 00:00 100 T-Piece 7.00 28 10/12/16 00:00 98.0 80 22 155/77 100 10/12/16 00:00 80 10/11/16 22:00 77 10/11/16 20:00 71 10/11/16 20:00 97.6 71 24 143/77 99 10/11/16 20:00 99 T-Piece 7.00 28 I/O 10/11/16 10/11/16 10/11/16 10/12/16 10/12/16 10/12/16 07:00 15:00 23:00 07:00 15:00 23:00 Intake Total 612 ml 775 ml 671 ml 704 ml 283 ml Output Total 350 ml 450 ml 250 ml 700 ml 175 ml Balance 262 ml 325 ml 421 ml 4 ml 108 ml IV Total 71 ml 100 ml 156 ml 87 ml 70 ml Tube Feeding 481 ml 555 ml 395 ml 557 ml 153 ml Other 60 ml 120 ml 120 ml 60 ml 60 ml Output Urine Total 350 ml 450 ml 250 ml 700 ml 175 ml # Bowel Movements 0 0 1 1 1 Result Diagram: 10/11/1632910/11/16329 Objective Remarks GENERAL: Elderly male, on Vent SKIN: Warm and dry. HEAD: Normocephalic. EYES: No scleral icterus. No injection or drainage. NECK: Supple, trachea midline. No JVD or lymphadenopathy. Has trach CARDIOVASCULAR: Regular rate and rhythm without murmurs, gallops, or rubs. RESPIRATORY: Breath sounds equal bilaterally. No accessory muscle use. GASTROINTESTINAL: Abdomen soft, non-tender, nondistended. PEG tube in place MUSCULOSKELETAL: No cyanosis, or edema. BACK: Nontender without obvious deformity. No CVA tenderness. A/P Assessment and Plan VDRF Trach Tracheal stent Sz disorder S/P AAA repair S/P cardiac arrest PLAN: Trach care Aerosol nebs TF Cont trach collar Wound care Daron Rock MD October 12, 2016 19:34
[2016-10-12] MEDS: RESP: ALBUTEROL 2.5 MG/IPRATROPIUM 0.5 MG NEB (PRN) NEB (20:09)
[2016-10-13] VITALS (17 sets, daily range): BP systolic 80–161; BP diastolic 54–86; PULSE 66–87; RESP 18–34; TEMP 97.2–99.4; O2SAT 94–100
[2016-10-13] MEDS: HEPARIN SODIUM - SQ 10,000 UNITS/ML VIAL SQ SCH ×3 (05:09→23:05)
[2016-10-13] MEDS: METOCLOPRAMIDE HCL 10 MG/2 ML VIAL IV PUSH SCH ×3 (05:09→23:06)
[2016-10-13 08:57] LABS: AUTOMATED NEUTROPHIL # 5.2 TH/MM3 (1.8-7.7); BASOPHIL # 0.1 TH/MM3 (0-0.2); BASOPHIL % 0.7 % (0.0-2.0); EOSINOPHIL # 0.5 TH/MM3 (0-0.4); EOSINOPHIL % 6.4 % (0.0-4.0); HEMO FLAGS DIFF FINAL; LYMPH % 15.1 % (9.0-44.0); LYMPHOCYTE # 1.2 TH/MM3 (1.0-4.8); MEAN CELL VOLUME 94.8 FL (80.0-100.0); MEAN CORPUSCULAR HEMOGLOBIN 30.2 PG (27.0-34.0); MEAN CORPUSCULAR HGB CONC 31.8 % (32.0-36.0); MONO % 11.5 % (0.0-8.0); NEUT % 66.3 % (16.0-70.0); PLATELET COUNT 223 TH/MM3 (150-450); RED BLOOD COUNT 2.85 MIL/MM3 (4.50-5.90); RED CELL DISTRIBUTION WIDTH 19.9 % (11.6-17.2); WHITE BLOOD COUNT 7.8 TH/MM3 (4.0-11.0)
[2016-10-13 08:59] LABS: ALKALINE PHOSPHATASE 129 U/L (45-117); ALT (GPT) 55 U/L (12-78); ANION GAP 9 MEQ/L (5-15); AST (GOT) 50 U/L (15-37); BICARBONATE 29.9 MEQ/L (21.0-32.0); BLOOD UREA NITROGEN 23 MG/DL (7-18); CHLORIDE 93 MEQ/L (98-107); GLOMERULAR FILTRATION RATE 122 ML/MIN (>89); MAGNESIUM 2.2 MG/DL (1.5-2.5); POTASSIUM 4.1 MEQ/L (3.5-5.1); SODIUM (NA) 132 MEQ/L (136-145); TOTAL BILIRUBIN ADULT 0.3 MG/DL (0.2-1.0)
[2016-10-13] MEDS: LISINOPRIL 10 MG TAB PEG SCH (09:53)
[2016-10-13] MEDS: SODIUM CHLORIDE 1 GRAM TAB PO SCH ×2 (09:53→17:55)
[2016-10-13] MEDS: ASPIRIN 81 MG CHEW TAB PEG SCH (09:53)
[2016-10-13] MEDS: PANTOPRAZOLE SODIUM 40 MG VIAL IV PUSH SCH (09:53)
[2016-10-13] MEDS: GLYCOPYRROLATE 1 MG TAB PEG SCH ×3 (09:53→18:13)
[2016-10-13] MEDS: CARVEDILOL 12.5 MG TAB PEG SCH ×2 (09:54→23:05)
[2016-10-13] MEDS: SODIUM CHLORIDE 0.9% FLUSH 10 ML FLUSH IV FLUSH PRN ×2 (09:54)
[2016-10-13] MEDS: SODIUM CHLORIDE 0.9% FLUSH 10 ML FLUSH IV FLUSH SCH ×3 (09:54→23:05)
[2016-10-13] MEDS ORDERED: SODIUM CHLOR 0.9% 250 ML INJ 250 ML IV ONE (15:00)
--- NOTE | 2016-10-13 15:43 | HHI.PR ---
Subjective Remarks no major overnight events bp noted to be low with sbp in the 80's systolic denies fevers/chills denies cp/sob Objective Vitals Vital Signs Date Time Temp Pulse Resp B/P Pulse Ox O2 Delivery O2 Flow Rate FiO2 10/13/16 14:00 66 10/13/16 12:00 96 T-Piece 7.00 28 10/13/16 12:00 67 10/13/16 12:00 98.1 67 26 83/54 96 10/13/16 11:00 69 23 116/66 100 10/13/16 10:00 82 29 143/84 100 10/13/16 10:00 82 10/13/16 09:00 74 21 111/69 100 10/13/16 08:56 100 T-piece 28 10/13/16 08:00 99.4 78 22 111/67 100 10/13/16 08:00 100 T-Piece 7.00 28 10/13/16 08:00 78 10/13/16 07:00 81 20 136/78 94 10/13/16 04:00 95 T-Piece 7.00 28 10/13/16 04:00 98.9 75 34 110/73 95 10/13/16 04:00 75 10/13/16 02:00 71 10/13/16 00:00 99.0 71 25 106/63 95 10/13/16 00:00 95 T-Piece 7.00 28 10/13/16 00:00 71 10/12/16 22:00 84 10/12/16 20:09 100 T-piece 5.00 28 10/12/16 20:00 87 10/12/16 20:00 99.7 87 25 127/82 100 10/12/16 20:00 100 T-Piece 7.00 28 10/12/16 18:00 90 10/12/16 16:00 98.2 92 28 146/87 99 10/12/16 16:00 92 10/12/16 16:00 99 T-Piece 7.00 28 I/O 10/12/16 10/12/16 10/12/16 10/13/16 10/13/16 10/13/16 07:00 15:00 23:00 07:00 15:00 23:00 Intake Total 704 ml 283 ml 343 ml 658 ml 592 ml Output Total 700 ml 175 ml 550 ml 350 ml 250 ml Balance 4 ml 108 ml -207 ml 308 ml 342 ml IV Total 87 ml 70 ml 0 ml Tube Feeding 557 ml 153 ml 343 ml 458 ml 532 ml Other 60 ml 60 ml 200 ml 60 ml Output Urine Total 700 ml 175 ml 550 ml 350 ml 250 ml # Bowel Movements 1 1 0 1 0 Result Diagram: 10/13/16 0619 10/13/16 0619 Imaging Last Impressions Abdomen X-Ray 10/10/16 0000 Signed Impressions: Service Date/Time: Monday, October 10, 2016 13:59 - CONCLUSION: 1. Normal bowel gas pattern. 2. Aortic endograft. Jace Mason Jr., MD Chest X-Ray 10/07/16 0600 Signed Impressions: Service Date/Time: Friday, October 07, 2016 03:43 - CONCLUSION: The previously noted left lung infiltrate has resolved. No definite new infiltrates are seen. Yoni Guaman MD Objective Remarks GENERAL: This is a gentleman, noncommunicative, trach dependent, NAD SKIN: Sacral decubiti with wound packing and discharge HEAD: Atraumatic. Normocephalic. EYES: Left-sided ptosis No scleral icterus. No injection or drainage. ENT: Nose without bleeding, purulent drainage or septal hematoma Airway patent. Tracheostomy in place NECK: Trachea midline. No JVD CARDIOVASCULAR: Regular rate and rhythm without murmurs, gallops, or rubs. RESPIRATORY: Bilateral rhonchi, no wheezing. No crackles auscultated. GASTROINTESTINAL: Abdomen soft, non-tender, nondistended. No guarding. No suprapubic tenderness. PEG in place, no erythema or purulent discharge observed. MUSCULOSKELETAL: Bilateral lower extremity contracture. Atrophic. No calf asymmetry. NEUROLOGICAL: Spontaneously opens his eyes. However not really tracking. Does not follow any commands. Bilateral upper and lower extremity contractures with muscle atrophy. Procedures None Medications and IVs Current Medications Medications (Trade) Dose Ordered Sig/Harry Route Start Time Stop Time Status Last Admin (NS Flush) 2 ml UNSCH PRN IV FLUSH 09/20/16 22:30 10/13/16 09:54 (NS Flush) 2 ml BID IV FLUSH 09/21/16 09:00 10/13/16 09:54 (Narcan Inj) 0.4 mg UNSCH PRN IV 09/20/16 22:30 (Tylenol) 650 mg Q6HR PRN PEG 09/21/16 01:30 09/26/16 17:50 (Aspirin Chew) 81 mg DAILY PEG 09/21/16 09:00 10/13/16 09:53 (Dulcolax Supp) 10 mg DAILY PRN RECTAL 09/21/16 01:30 10/08/16 12:26 (Ativan) 2 mg Q8HR PRN PEG 09/21/16 01:30 (Zofran Inj) 4 mg Q4HR PRN IV PUSH 09/21/16 01:30 (D50w (Vial) Inj) 25 ml UNSCH PRN IV PUSH 09/21/16 01:30 (Glucagon Inj) 1 mg UNSCH PRN OTHER 09/21/16 01:30 (Protonix Inj) 40 mg DAILY IV PUSH 09/21/16 10:01 10/13/16 09:53 (Robinul) 1 mg TID PEG 09/21/16 13:00 10/13/16 12:34 (Heparin Inj) 5,000 units Q8HR SQ 09/21/16 14:00 10/13/16 12:35 (Reglan Inj) 5 mg Q8HR IV PUSH 09/21/16 14:00 10/13/16 12:34 (NS Flush) See Protocol DAILY IV FLUSH 09/23/16 09:00 10/13/16 09:54 (NS Flush) See Protocol UNSCH PRN IV FLUSH 09/22/16 13:45 10/13/16 09:54 (Heparin Central Flush) See Protocol DAILY IV FLUSH 09/23/16 09:00 10/13/16 09:54 (Heparin Central Flush) See Protocol UNSCH PRN IV FLUSH 09/22/16 13:45 Sodium Chloride UNSCH PRN IV FLUSH 09/22/16 13:45 10/13/16 09:54 (NS 1000 ml Inj) 1,000 ml @ 0 mls/hr Q0M IV 09/22/16 17:30 10/07/16 16:25 (Coreg) 12.5 mg BID PEG 09/24/16 15:00 10/13/16 09:54 Lisinopril 10 mg 10 mg DAILY PEG 09/24/16 14:45 Hold 10/13/16 09:53 (Diflucan 200 Mg Premix Bag) 100 ml @ 100 mls/hr Q24H IV 10/05/16 16:00 10/12/16 16:44 Miscellaneous Information Patient in critical care unit? Ass... 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 Status: Chronic (5) S/P percutaneous endoscopic gastrostomy (PEG) tube placement ICD Code: Z93.1 Status: Chronic (6) H/O cardiac arrest ICD Code: Z86.74 Status: Chronic (7) S/P AAA repair ICD Code: Z98.890 Status: Resolved (8) Dementia ICD Code: F03.90 Status: Chronic (9) Schizophrenia ICD Code: F20.9 Status: Chronic (10) Diabetes mellitus type 2, controlled ICD Code: E11.9 Status: Chronic (11) CAD (coronary artery disease) ICD Code: I25.10 Status: Chronic (12) Encephalopathy acute ICD Code: G93.40 Status: Chronic Assessment and Plan Ukizx-dp-tavkuxw respiratory failure Status post tracheostomy since 2009. 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 Tracheal stent occlusion with clots and debris on 07/01/16 status post revision. 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 History of pseudomonas and stenotrophomonas lower respiratory tract infection from his bronchoscopy 07/04/16. Tracheal stent dislodgment status post removal of the fractured stent and placement of new stent on 07/11/16, stent revision on 07/17/16. New stent placement on 08/03. Transferred to the ICU for hypoxemia. S/p antibiotics. - Continue with oxygen keep sat >92%. - Bronchodilators, pulm toilet, trach care. Levsin and glycopyrrolate available. - 10/06 T-piece trials initiated. - follow up with pulmonology. - pt has desaturations which resolve with suctioning. Continue to monitor. Seizure disorder/ Anoxic encephalopathy Negative MRI studies. Neurology consult appreciated. EEG showing PLEDs, no seizure activity. Unclear what neurologic baseline is since patient had 2 cardiac arrests over at [facility]. - Continue current anticonvulsants. - daughter refusing Depakote and Keppra. - follow up with neurology. Nutrition S/P percutaneous endoscopic gastrostomy (PEG) tube placement. - On tube feeds via PEG tube-Jevity 1.5@60ml/hr and tolerating them well. Cardiac arrest Patient has history of cardiac arrest on August 13 and . Palliative care consult appreciated. - On Coreg 12.5mg BID, Lisinopril 10mg daily, ASA 81 mg daily. - follow up with palliative care. - telemetry. 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 - continue cardiac regimen. Anemia Hgb not far from baseline. Iron studies noted. B12 and folic acid levels elevated. Likely anemia of chronic disease. - check Hemoccult. - follow CBC. Diabetes mellitus type 2 Last A1c in our system was 5.3%. Diabetes is diet-controlled with blood sugars stable. There is no need for regular Accu-Cheks and to cover with supplemental insulin scale. - monitor BMP as needed. Abdominal distention Noted on exam 10/10/16. KUB unremarkable. - Bowel regimen. - monitor. Hypotension Patient's systolic blood pressure in the 80s I will hold the patient's lisinopril and will give a bolus of 250 mL of normal saline IV. GI prophylaxis- On Protonix 40mg daily DVT prophylaxis- Heparin Sq Discharge Planning Patient's daughter wants to take her home. As per RN patient's family stated that they are not ready to get the patient today or this weekend since they are going away. As per RN report the patient's family will be back on the night of October 22. The patient cannot be safely discharged. Problem Qualifiers (1) Dementia: Qualified Code: F03.90 - Dementia without behavioral disturbance, unspecified dementia type (2) Diabetes mellitus type 2, controlled: Qualified Code: E11.8 - Controlled type 2 diabetes mellitus with complication, without long-term current use of insulin Ezequiel Pelletier MD October 13, 2016 15:43
[2016-10-13] MEDS: TAMSULOSIN HCL 0.4 MG CAP PO SCH (15:46)
[2016-10-13] MEDS: FLUCONAZOLE 200 MG PREMIX BAG 100 ML IV SCH (16:18)
--- NOTE | 2016-10-13 18:44 | HHI.PR ---
Subjective Remarks 80 YOAA male multiple co morbid condition VDRF,Trach, tracheal stent no fever Tolerates Trach collar Small amount of trach secretions Tr to 4th floor Objective Vital Signs Vital Signs Date Time Temp Pulse Resp B/P Pulse Ox O2 Delivery O2 Flow Rate FiO2 10/13/16 18:07 97.2 72 18 128/77 98 10/13/16 17:30 98 T-piece 6.00 28 10/13/16 16:00 98.4 78 28 122/72 98 10/13/16 16:00 98 T-Piece 7.00 28 10/13/16 16:00 78 10/13/16 14:00 66 25 80/54 100 10/13/16 14:00 66 10/13/16 13:00 68 28 90/55 100 10/13/16 12:00 96 T-Piece 7.00 28 10/13/16 12:00 67 10/13/16 12:00 98.1 67 26 83/54 96 10/13/16 11:00 69 23 116/66 100 10/13/16 10:00 82 29 143/84 100 10/13/16 10:00 82 10/13/16 09:00 74 21 111/69 100 10/13/16 08:56 100 T-piece 28 10/13/16 08:00 99.4 78 22 111/67 100 10/13/16 08:00 100 T-Piece 7.00 28 10/13/16 08:00 78 10/13/16 07:00 81 20 136/78 94 10/13/16 04:00 95 T-Piece 7.00 28 10/13/16 04:00 98.9 75 34 110/73 95 10/13/16 04:00 75 10/13/16 02:00 71 10/13/16 00:00 99.0 71 25 106/63 95 10/13/16 00:00 95 T-Piece 7.00 28 10/13/16 00:00 71 10/12/16 22:00 84 10/12/16 20:09 100 T-piece 5.00 28 10/12/16 20:00 87 10/12/16 20:00 99.7 87 25 127/82 100 10/12/16 20:00 100 T-Piece 7.00 28 I/O 5/18/17 5/1810/12/16 10/13/16 10/13/16 10/13/16 07:00 15:00 23:00 07:00 15:00 23:00 Intake Total 704 ml 283 ml 343 ml 658 ml 592 ml Output Total 700 ml 175 ml 550 ml 350 ml 250 ml 0 ml Balance 4 ml 108 ml -207 ml 308 ml 342 ml 0 ml IV Total 87 ml 70 ml 0 ml Tube Feeding 557 ml 153 ml 343 ml 458 ml 532 ml Other 60 ml 60 ml 200 ml 60 ml Output Urine Total 700 ml 175 ml 550 ml 350 ml 250 ml Tube Feeding Residual Discard 0 ml # Bowel Movements 1 1 0 1 0 Result Diagram: 10/13/1661810/13/16618 Objective Remarks GENERAL: Elderly male, on Vent SKIN: Warm and dry. HEAD: Normocephalic. EYES: No scleral icterus. No injection or drainage. NECK: Supple, trachea midline. No JVD or lymphadenopathy. Has trach CARDIOVASCULAR: Regular rate and rhythm without murmurs, gallops, or rubs. RESPIRATORY: Breath sounds equal bilaterally. No accessory muscle use. GASTROINTESTINAL: Abdomen soft, non-tender, nondistended. PEG tube in place MUSCULOSKELETAL: No cyanosis, or edema. BACK: Nontender without obvious deformity. No CVA tenderness. A/P Assessment and Plan VDRF Trach Tracheal stent Sz disorder S/P AAA repair S/P cardiac arrest PLAN: Trach care Aerosol nebs TF Cont trach collar Wound care Daron Rock MD October 13, 2016 18:44
[2016-10-13] MEDS: JUVEN POWDER 1 PACK G-TUBE SCH (23:04)
[2016-10-14] VITALS (10 sets, daily range): BP systolic 108–169; BP diastolic 62–84; PULSE 69–85; RESP 20–24; TEMP 97.5–98.1; O2SAT 96–100
[2016-10-14] MEDS: METOCLOPRAMIDE HCL 10 MG/2 ML VIAL IV PUSH SCH ×3 (06:07→22:07)
[2016-10-14] MEDS: HEPARIN SODIUM - SQ 10,000 UNITS/ML VIAL SQ SCH ×3 (06:07→22:08)
[2016-10-14] MEDS: SODIUM CHLORIDE 1 GRAM TAB PO SCH ×2 (08:26→16:51)
[2016-10-14] MEDS: GLYCOPYRROLATE 1 MG TAB PEG SCH ×3 (08:26→16:51)
[2016-10-14] MEDS: CARVEDILOL 12.5 MG TAB PEG SCH ×2 (08:26→22:07)
[2016-10-14] MEDS: ASPIRIN 81 MG CHEW TAB PEG SCH (08:26)
[2016-10-14] MEDS: PANTOPRAZOLE SODIUM 40 MG VIAL IV PUSH SCH (08:26)
[2016-10-14] MEDS: SODIUM CHLORIDE 0.9% FLUSH 10 ML FLUSH IV FLUSH SCH ×3 (08:26→22:06)
[2016-10-14] MEDS: JUVEN POWDER 1 PACK G-TUBE SCH ×2 (09:00→21:00)
--- NOTE | 2016-10-14 14:05 | HHI.PR ---
Subjective Remarks as per RN patient has 2 watery BM's this am no fevers or chills also as per RN there is some facial twitching noted. tolerating T piece stable vital signs - afebrile Objective Vitals Vital Signs Date Time Temp Pulse Resp B/P Pulse Ox O2 Delivery O2 Flow Rate FiO2 10/14/16 12:00 T-Piece 7.00 28 10/14/16 11:50 97.7 69 20 108/62 100 10/14/16 08:00 T-Piece 7.00 28 10/14/16 08:00 81 10/14/16 07:50 97.7 81 20 140/75 99 10/14/16 04:00 98.1 85 24 125/71 99 10/14/16 04:00 T-Piece 7.00 28 10/14/16 00:08 97.7 80 24 141/63 96 10/14/16 00:00 T-Piece 7.00 28 10/13/16 20:00 T-Piece 7.00 28 10/13/16 20:00 97.2 83 20 161/86 100 10/13/16 20:00 87 10/13/16 18:07 97.2 72 18 128/77 98 10/13/16 17:40 71 10/13/16 17:30 98 T-piece 6.00 28 10/13/16 16:00 98.4 78 28 122/72 98 10/13/16 16:00 98 T-Piece 7.00 28 10/13/16 16:00 78 I/O 10/13/16 10/13/16 10/13/16 10/14/16 10/14/16 10/14/16 06:59 14:59 22:59 06:59 14:59 22:59 Intake Total 658 ml 592 ml 1237 ml Output Total 350 ml 250 ml 0 ml Balance 308 ml 342 ml 0 ml 1237 ml IV Total 0 ml 355 ml Tube Feeding 458 ml 532 ml 882 ml Other 200 ml 60 ml Output Urine Total 350 ml 250 ml Tube Feeding Residual Discard 0 ml # Voids 2 # Bowel Movements 1 0 Result Diagram: 10/13/16 0619 10/13/1619 Imaging Last Impressions Abdomen X-Ray 10/10/16 0000 Signed Impressions: Service Date/Time: Monday, October 10, 2016 13:59 - CONCLUSION: 1. Normal bowel gas pattern. 2. Aortic endograft. Jace Mason Jr., MD Chest X-Ray 10/07/16 0600 Signed Impressions: Service Date/Time: Friday, October 07, 2016 03:43 - CONCLUSION: The previously noted left lung infiltrate has resolved. No definite new infiltrates are seen. Yoni Guaman MD Objective Remarks GENERAL: This is a gentleman, noncommunicative, trach dependent, NAD SKIN: Sacral decubiti with wound packing and discharge HEAD: Atraumatic. Normocephalic. EYES: Left-sided ptosis No scleral icterus. No injection or drainage. ENT: Nose without bleeding, purulent drainage or septal hematoma Airway patent. Tracheostomy in place NECK: Trachea midline. No JVD CARDIOVASCULAR: Regular rate and rhythm without murmurs, gallops, or rubs. RESPIRATORY: Bilateral rhonchi, no wheezing. No crackles auscultated. GASTROINTESTINAL: Abdomen soft, non-tender, nondistended. No guarding. No suprapubic tenderness. PEG in place, no erythema or purulent discharge observed. MUSCULOSKELETAL: Bilateral lower extremity contracture. Atrophic. No calf asymmetry. NEUROLOGICAL: Spontaneously opens his eyes. However not really tracking. Does not follow any commands. Bilateral upper and lower extremity contractures with muscle atrophy. Procedures None Medications and IVs Current Medications Medications (Trade) Dose Ordered Sig/Harry Route Start Time Stop Time Status Last Admin (NS Flush) 2 ml UNSCH PRN IV FLUSH 09/20/16 22:30 10/13/16 09:54 (NS Flush) 2 ml BID IV FLUSH 09/21/16 09:00 10/14/16 08:26 (Narcan Inj) 0.4 mg UNSCH PRN IV 09/20/16 22:30 (Tylenol) 650 mg Q6HR PRN PEG 09/21/16 01:30 09/26/16 17:50 (Aspirin Chew) 81 mg DAILY PEG 09/21/16 09:00 10/14/16 08:26 (Dulcolax Supp) 10 mg DAILY PRN RECTAL 09/21/16 01:30 10/08/16 12:26 (Ativan) 2 mg Q8HR PRN PEG 09/21/16 01:30 (Zofran Inj) 4 mg Q4HR PRN IV PUSH 09/21/16 01:30 (D50w (Vial) Inj) 25 ml UNSCH PRN IV PUSH 09/21/16 01:30 (Glucagon Inj) 1 mg UNSCH PRN OTHER 09/21/16 01:30 (Protonix Inj) 40 mg DAILY IV PUSH 09/21/16 10:01 10/14/16 08:26 (Robinul) 1 mg TID PEG 09/21/16 13:00 10/14/16 14:10 (Heparin Inj) 5,000 units Q8HR SQ 09/21/16 14:00 10/14/16 14:09 (Reglan Inj) 5 mg Q8HR IV PUSH 09/21/16 14:00 10/14/16 14:09 (NS Flush) See Protocol DAILY IV FLUSH 09/23/16 09:00 10/14/16 08:26 (NS Flush) See Protocol UNSCH PRN IV FLUSH 09/22/16 13:45 10/13/16 09:54 (Heparin Central Flush) See Protocol DAILY IV FLUSH 09/23/16 09:00 10/14/16 08:26 (Heparin Central Flush) See Protocol UNSCH PRN IV FLUSH 09/22/16 13:45 Sodium Chloride UNSCH PRN IV FLUSH 09/22/16 13:45 10/13/16 09:54 (NS 1000 ml Inj) 1,000 ml @ 0 mls/hr Q0M IV 09/22/16 17:30 10/07/16 16:25 (Coreg) 12.5 mg BID PEG 09/24/16 15:00 10/14/16 08:26 Lisinopril 10 mg 10 mg DAILY PEG 09/24/16 14:45 Hold 10/13/16 09:53 (Diflucan 200 Mg Premix Bag) 100 ml @ 100 mls/hr Q24H IV 10/05/16 16:00 10/13/16 16:18 Miscellaneous Information Patient in critical care unit? Ass... [id number] .XX 10/07/16 08:30 (Levsin Liq) 0.125 mg Q4H PRN PO 10/09/16 18:15 10/12/16 11:55 (Sodium Chloride) 1 gm BID@18 PO 10/12/16 18:00 10/14/16 08:26 (Mark Powder) 1 pack BID G-TUBE 10/13/16 21:00 10/14/16 09:00 Urinary Catheter: No A/P Problem List: (1) Vpatq-oi-xjoqmsl respiratory failure ICD Code: J96.20 Status: Chronic (2) Hyperkalemia ICD Code: E87.5 Status: Resolved (3) Seizure disorder ICD Code: G40.909 Status: Chronic (4) Tracheostomy in place ICD Code: Z93.0 Status: Chronic (5) S/P percutaneous endoscopic gastrostomy (PEG) tube placement ICD Code: Z93.1 Status: Chronic (6) H/O cardiac arrest ICD Code: Z86.74 Status: Chronic (7) S/P AAA repair ICD Code: Z98.890 Status: Resolved (8) Dementia ICD Code: F03.90 Status: Chronic (9) Schizophrenia ICD Code: F20.9 Status: Chronic (10) Diabetes mellitus type 2, controlled ICD Code: E11.9 Status: Chronic (11) CAD (coronary artery disease) ICD Code: I25.10 Status: Chronic (12) Encephalopathy acute ICD Code: G93.40 Status: Chronic Assessment and Plan Swyyz-wr-oqithbm respiratory failure Status post tracheostomy since 2009. 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 Tracheal stent occlusion with clots and debris on 07/01/16 status post revision. 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 History of pseudomonas and stenotrophomonas lower respiratory tract infection from his bronchoscopy 07/04/16. Tracheal stent dislodgment status post removal of the fractured stent and placement of new stent on 07/11/16, stent revision on 07/17/16. New stent placement on 08/03. Transferred to the ICU for hypoxemia. S/p antibiotics. - Continue with oxygen keep sat >92%. - Bronchodilators, pulm toilet, trach care. Levsin and glycopyrrolate available. - 10/06 T-piece trials initiated. - follow up with pulmonology. - Patient is tolerating T piece Seizure disorder/ Severe Anoxic encephalopathy Negative MRI studies. Neurology consult appreciated. EEG showing PLEDs, no seizure activity. Unclear what neurologic baseline is since patient had 2 cardiac arrests over at [facility]. Patient initially on Depakote and Keppra with the patient's daughter refusing these medications, these medications were discontinued by the jackspooler. 10/14 patient noted to have some faced twitching. I will reconsult neurology. Nutrition S/P percutaneous endoscopic gastrostomy (PEG) tube placement. - On tube feeds via PEG tube-Jevity 1.5@60ml/hr and tolerating them well. Cardiac arrest Patient has history of cardiac arrest on August 13 and . Palliative care consult appreciated. - On Coreg 12.5mg BID, Lisinopril 10mg daily, ASA 81 mg daily. - follow up with palliative care. - telemetry. 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 - continue cardiac regimen. Anemia Hgb not far from baseline. Iron studies noted. B12 and folic acid levels elevated. Likely anemia of chronic disease. - check Hemoccult. - follow CBC. Diabetes mellitus type 2 Last A1c in our system was 5.3%. Diabetes is diet-controlled with blood sugars stable. There is no need for regular Accu-Cheks and to cover with supplemental insulin scale. - monitor BMP as needed. Abdominal distention Noted on exam 10/10/16. KUB unremarkable. - Bowel regimen. - monitor. Hypotension - resolved. Patient's systolic blood pressure in the 80s on 10/13 Lisinopril was held and patient was treated with IV normal saline bolus of 250 mL's after which patient's blood pressure is now stable. Continue to hold lisinopril. GI prophylaxis- On Protonix 40mg daily DVT prophylaxis- Heparin Sq Discharge Planning Patient's daughter wants to take her home. As per RN patient's family stated that they are not ready to get the patient today or this weekend since they are going away. As per RN report the patient's family will be back on the night of October 22. The patient cannot be safely discharged. Problem Qualifiers (1) Dementia: Qualified Code: F03.90 - Dementia without behavioral disturbance, unspecified dementia type (2) Diabetes mellitus type 2, controlled: Qualified Code: E11.8 - Controlled type 2 diabetes mellitus with complication, without long-term current use of insulin Ezequiel Pelletier MD October 14, 2016 14:05
[2016-10-14] MEDS: TAMSULOSIN HCL 0.4 MG CAP PO SCH (16:00)
[2016-10-14 16:51] LABS: ALT (GPT) 53 U/L (12-78); ANION GAP 6 MEQ/L (5-15); AST (GOT) 49 U/L (15-37); BICARBONATE 32.3 MEQ/L (21.0-32.0); BLOOD UREA NITROGEN 25 MG/DL (7-18); CHLORIDE 98 MEQ/L (98-107); GLOMERULAR FILTRATION RATE 122 ML/MIN (>89); POTASSIUM 4.2 MEQ/L (3.5-5.1); SODIUM (NA) 136 MEQ/L (136-145)
[2016-10-14] MEDS: FLUCONAZOLE 200 MG PREMIX BAG 100 ML IV SCH (16:51)
[2016-10-14 16:54] LABS: ALKALINE PHOSPHATASE 120 U/L (45-117); TOTAL BILIRUBIN ADULT 0.3 MG/DL (0.2-1.0)
[2016-10-14 21:12] LABS: MEAN CORPUSCULAR HGB CONC 36.4 % (32.0-36.0)
[2016-10-15] VITALS (9 sets, daily range): BP systolic 139–179; BP diastolic 66–88; PULSE 73–99; RESP 18–22; TEMP 97–99; O2SAT 93–100
[2016-10-15 05:10] LABS: AUTOMATED NEUTROPHIL # 3.6 TH/MM3 (1.8-7.7); BASOPHIL % 0.8 % (0.0-2.0); EOSINOPHIL # 0.4 TH/MM3 (0-0.4); EOSINOPHIL % 7.7 % (0.0-4.0); HEMATOCRIT 23.7 % (39.0-51.0); LYMPH % 17.6 % (9.0-44.0); MEAN CELL VOLUME 100.8 FL (80.0-100.0); MEAN CORPUSCULAR HEMOGLOBIN 36.7 PG (27.0-34.0); MONO % 10.1 % (0.0-8.0); NEUT % 63.8 % (16.0-70.0); PLATELET COUNT 223 TH/MM3 (150-450); RED BLOOD COUNT 2.36 MIL/MM3 (4.50-5.90); RED CELL DISTRIBUTION WIDTH 19.5 % (11.6-17.2); WHITE BLOOD COUNT 5.7 TH/MM3 (4.0-11.0)
[2016-10-15 05:13] LABS: HEMO FLAGS AUTO DIFF
[2016-10-15 05:31] LABS: ANION GAP 7 MEQ/L (5-15); AST (GOT) 57 U/L (15-37); BLOOD UREA NITROGEN 22 MG/DL (7-18); CHLORIDE 98 MEQ/L (98-107); GLOMERULAR FILTRATION RATE 124 ML/MIN (>89); MAGNESIUM 2.2 MG/DL (1.5-2.5); POTASSIUM 3.8 MEQ/L (3.5-5.1); SODIUM (NA) 137 MEQ/L (136-145)
[2016-10-15 05:35] LABS: ALKALINE PHOSPHATASE 132 U/L (45-117); ALT (GPT) 64 U/L (12-78); TOTAL BILIRUBIN ADULT 0.2 MG/DL (0.2-1.0)
[2016-10-15] MEDS: METOCLOPRAMIDE HCL 10 MG/2 ML VIAL IV PUSH SCH ×3 (05:47→20:23)
[2016-10-15] MEDS: HEPARIN SODIUM - SQ 10,000 UNITS/ML VIAL SQ SCH ×3 (05:47→20:23)
[2016-10-15 06:15] LABS: ROULEAUX PRESENT (NORMAL); SCAN/DIFF AUTO DIFF CONFIRMED
[2016-10-15] MEDS: SODIUM CHLORIDE 0.9% FLUSH 10 ML FLUSH IV FLUSH SCH ×3 (08:54→20:23)
[2016-10-15] MEDS: GLYCOPYRROLATE 1 MG TAB PEG SCH ×3 (08:54→16:43)
[2016-10-15] MEDS: ASPIRIN 81 MG CHEW TAB PEG SCH (08:54)
[2016-10-15] MEDS: PANTOPRAZOLE SODIUM 40 MG VIAL IV PUSH SCH (08:54)
[2016-10-15] MEDS: JUVEN POWDER 1 PACK G-TUBE SCH ×2 (08:54→20:24)
[2016-10-15] MEDS: SODIUM CHLORIDE 1 GRAM TAB PO SCH ×2 (08:54→16:43)
[2016-10-15] MEDS: CARVEDILOL 12.5 MG TAB PEG SCH ×2 (08:55→20:23)
--- NOTE | 2016-10-15 09:16 | MB ---
cc: ANTIONE VILLARREAL MD DATE OF CONSULTATION: 10/14/2016 REASON FOR CONSULTATION "Patient with face twitching". HISTORY OF PRESENT ILLNESS Mr. Cesar is a 80-year-old -Portuguese male who is trache and PEG dependent, nonverbal, since 2010. Hence, the history is obtained from medical records and from the nurse. In June 2016 he presented to the [facility] Emergency Room with blood clots through the PEG tube with respiratory failure and admitted to the ICU for ventilator support. He has history of tracheomalacia with tracheal stent placed in [facility] two years ago. Therapeutic bronchoscopy done showed near complete occlusion of tracheal stent. The patient has had cardiac arrest on 08/13/2016 and 08/14/2016 he required ventilatory support. He also had AAA repair and managed for massive distension of the colon suspicious for volvulus versus ileus. The patient was noted to be lethargic with a pCO2 in 80s. He was placed on mechanical ventilation. He was encephalopathic then the patient was on C-PAP trials for several days. The patient was diagnosed with possible seizures with an EEG reviewed with JAGDISH but daughter refused antiseizure medication. It was noted today some facial twitches on bilateral face without extremity or body convulsions or foaming from the mouth and hence, neurology was consulted. REVIEW OF SYSTEMS Unable to obtain. PAST MEDICAL HISTORY Unable to obtain. From review of medical records: 1. Status post tracheostomy in 2009. 2. Status post PEG tube since 2009. 3. Tracheostomy placement due to tracheomalacia 2 years ago. 4. Tracheal stent occlusion, clots in early 2016. 5. Recurrent Pseudomonas pneumonia. 6. 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 7. MRSA from bronchoscopy June 2016. 8. EEG done at [facility] showed epileptic discharges. 9. Massive colonic distension in the right mitzy-abdomen, ileus versus sigmoid. 10. Hypertension. 11. Diabetes. 12. Coronary artery disease. 13. Prostate cancer. 14. Dementia. 15. Seizure disorder. 16. AAA. 17. Paranoid schizophrenia. 18. Anemia. 19. Anxiety. 20. Gastroesophageal reflux disease. PAST SURGICAL HISTORY 1. Tracheostomy in 2009. 2. PEG tube placement 2009. 3. Tracheal stent 2014. 4. Tracheostomy removal and replacement 2016. 5. Tracheostomy procedures in 2017. 6. Bronchoscopies. MEDICATIONS 1. Aspirin. 2. Benztropine. 3. Coreg. 4. Colace. 5. Glycopyrrolate. 6. Guaifenesin. 7. Heparin. 8. Lisinopril. 9. Keppra. 10. Protonix. 11. Senokot. 12. Flomax. 13. Depakote. 14. Albuterol. 15. Hydralazine. 16. Dilaudid. 17. Labetalol. 18. Ativan. ALLERGIES PENICILLIN, MEDROL, CODEINE. FAMILY HISTORY Unknown. SOCIAL HISTORY Previous history of smoking. Remote history of alcohol abuse. No IV drug abuse. Previously he used to live with daughter and son-in-law. PHYSICAL EXAMINATION GENERAL: The patient is nonverbal, noncommunicative, tracheostomy dependent. PEG dependent. HEENT: Atraumatic, normocephalic. Tracheostomy in place. NECK: Tracheostomy in place. CARDIOVASCULAR: Regular rate and rhythm. RESPIRATORY: Decreased air entry bilaterally. GASTROINTESTINAL: Soft abdomen. MUSCULOSKELETAL: Contractures of the bilateral lower extremities. NEUROLOGIC: Nonverbal, does not respond to either verbal or painful stimuli. No spontaneous eye opening. Pupils 2 mm, sluggish reacting to light. No gaze deviation. Intermittent orofacial movements/chewing-like movements. No facial twitches noted during the encounter. Reflexes 1+ bilateral and symmetrical. No signs of meningeal irritation. Plantars are bilateral mute. LABORATORY DATA Review of labs: White blood cell 7.6, hemoglobin 8.6, MCV 94.8, platelet 223. Sodium 136, potassium 4.2, AST 49, alkaline phosphatase 120, vitamin B12 greater than 2000, albumin 2. Normal valproic acid. DIAGNOSTIC IMPRESSION 1. Seizure disorder. 2. Acute on chronic respiratory failure. 3. PEG, trache dependent. 4. History of cardiac arrest. 5. History of AAA repair. 6. Dementia. 7. Schizphrenia. 8. Diabetes mellitus. 9. Coronary artery disease. 10. Encephalopathy. PLAN 1. Neuro checks q. 4 hourly. 2. EEG. 3. Ativan 1 mg for seizures lasting more than 3 minutes. 4. Verify from daughter/family about antiseizure medications he was on. 5. DVT prophylaxis. Thank you for the opportunity to participate in the care of this patient. MD CHEY Vásquez/SARIKA /12:03 AM /7:59 AM [email or web address]
[2016-10-15] MEDS: TAMSULOSIN HCL 0.4 MG CAP PO SCH (16:00)
[2016-10-15] MEDS: FLUCONAZOLE 200 MG PREMIX BAG 100 ML IV SCH (16:42)
--- NOTE | 2016-10-15 18:44 | HHI.PR ---
Subjective Remarks no major overnight events face twitching still reported patient non verbal afebrile stable vital signs Tolerating T piece (+) cough Objective Vitals Vital Signs Date Time Temp Pulse Resp B/P Pulse Ox O2 Delivery O2 Flow Rate FiO2 10/15/16 16:00 T-Piece 7.00 28 Humidified 10/15/16 16:00 97.8 73 20 139/67 100 10/15/16 12:37 98 T-piece 28 10/15/16 12:00 T-Piece 7.00 28 Humidified 10/15/16 12:00 99.0 81 18 156/85 93 10/15/16 09:00 88 10/15/16 09:00 T-Piece 7.00 28 Humidified 10/15/16 08:00 97.0 92 20 169/88 93 10/15/16 06:00 98.5 89 22 179/87 96 10/15/16 00:00 97.6 82 22 179/78 98 10/14/16 21:30 T-Piece 7.00 28 Humidified 10/14/16 20:49 99 T-piece 28 10/14/16 20:17 75 10/14/16 20:00 97.5 78 22 169/84 97 I/O 10/14/16 10/14/16 10/14/16 10/15/16 10/15/16 10/15/16 07:00 15:00 23:00 07:00 15:00 23:00 Intake Total 1237 ml 550 ml 542 ml 584 ml 1000 ml Balance 1237 ml 550 ml 542 ml 584 ml 1000 ml IV Total 355 ml 0 ml 2 ml 2 ml Tube Feeding 882 ml 550 ml 540 ml 582 ml 1000 ml # Voids 4 2 2 # Bowel Movements 0 0 1 Result Diagram: 10/15/16 0450 10/15/16 0450 Imaging Last Impressions Abdomen X-Ray 10/10/16 0000 Signed Impressions: Service Date/Time: Monday, October 10, 2016 13:59 - CONCLUSION: 1. Normal bowel gas pattern. 2. Aortic endograft. Jace Mason Jr., MD Chest X-Ray 10/07/16 0600 Signed Impressions: Service Date/Time: Friday, October 07, 2016 03:43 - CONCLUSION: The previously noted left lung infiltrate has resolved. No definite new infiltrates are seen. Yoni Guaman MD Objective Remarks GENERAL: This is a gentleman, noncommunicative, trach dependent, NAD SKIN: Sacral decubiti with wound packing and discharge HEAD: Atraumatic. Normocephalic. EYES: Left-sided ptosis No scleral icterus. No injection or drainage. ENT: Nose without bleeding, purulent drainage or septal hematoma Airway patent. Tracheostomy in place NECK: Trachea midline. No JVD CARDIOVASCULAR: Regular rate and rhythm without murmurs, gallops, or rubs. RESPIRATORY: Bilateral rhonchi, no wheezing. No crackles auscultated. GASTROINTESTINAL: Abdomen soft, non-tender, nondistended. No guarding. No suprapubic tenderness. PEG in place, no erythema or purulent discharge observed. MUSCULOSKELETAL: Bilateral lower extremity contracture. Atrophic. No calf asymmetry. NEUROLOGICAL: Spontaneously opens his eyes. However not really tracking. Does not follow any commands. Bilateral upper and lower extremity contractures with muscle atrophy. Procedures None Medications and IVs Current Medications Medications (Trade) Dose Ordered Sig/Harry Route Start Time Stop Time Status Last Admin (NS Flush) 2 ml UNSCH PRN IV FLUSH 09/20/16 22:30 10/13/16 09:54 (NS Flush) 2 ml BID IV FLUSH 09/21/16 09:00 10/15/16 08:54 (Narcan Inj) 0.4 mg UNSCH PRN IV 09/20/16 22:30 (Tylenol) 650 mg Q6HR PRN PEG 09/21/16 01:30 09/26/16 17:50 (Aspirin Chew) 81 mg DAILY PEG 09/21/16 09:00 10/15/16 08:54 (Dulcolax Supp) 10 mg DAILY PRN RECTAL 09/21/16 01:30 10/08/16 12:26 (Ativan) 2 mg Q8HR PRN PEG 09/21/16 01:30 (Zofran Inj) 4 mg Q4HR PRN IV PUSH 09/21/16 01:30 (D50w (Vial) Inj) 25 ml UNSCH PRN IV PUSH 09/21/16 01:30 (Glucagon Inj) 1 mg UNSCH PRN OTHER 09/21/16 01:30 (Protonix Inj) 40 mg DAILY IV PUSH 09/21/16 10:01 10/15/16 08:54 (Robinul) 1 mg TID PEG 09/21/16 13:00 10/15/16 16:43 (Heparin Inj) 5,000 units Q8HR SQ 09/21/16 14:00 10/15/16 16:42 (Reglan Inj) 5 mg Q8HR IV PUSH 09/21/16 14:00 10/15/16 16:42 (NS Flush) See Protocol DAILY IV FLUSH 09/23/16 09:00 10/15/16 08:55 (NS Flush) See Protocol UNSCH PRN IV FLUSH 09/22/16 13:45 10/13/16 09:54 (Heparin Central Flush) See Protocol DAILY IV FLUSH 09/23/16 09:00 10/15/16 08:54 (Heparin Central Flush) See Protocol UNSCH PRN IV FLUSH 09/22/16 13:45 Sodium Chloride UNSCH PRN IV FLUSH 09/22/16 13:45 10/13/16 09:54 (NS 1000 ml Inj) 1,000 ml @ 0 mls/hr Q0M IV 09/22/16 17:30 10/07/16 16:25 (Coreg) 12.5 mg BID PEG 09/24/16 15:00 10/15/16 08:55 Lisinopril 10 mg 10 mg DAILY PEG 09/24/16 14:45 Hold 10/13/16 09:53 (Diflucan 200 Mg Premix Bag) 100 ml @ 100 mls/hr Q24H IV 10/05/16 16:00 10/15/16 16:42 Miscellaneous Information Patient in critical care unit? Ass... [id number] .XX 10/07/16 08:30 (Levsin Liq) 0.125 mg Q4H PRN PO 10/09/16 18:15 10/12/16 11:55 (Sodium Chloride) 1 gm BID@09,18 PO 10/12/16 18:00 10/15/16 16:43 (Mark Powder) 1 pack BID G-TUBE 10/13/16 21:00 10/15/16 08:54 Urinary Catheter: No Vascular Central Line Catheter: No A/P Problem List: (1) [id number] respiratory failure ICD Code: J96.20 Status: Chronic Plan: (2) Hyperkalemia ICD Code: E87.5 Status: Resolved (3) Seizure disorder ICD Code: G40.909 Status: Chronic (4) Tracheostomy in place ICD Code: Z93.0 Status: Chronic (5) S/P percutaneous endoscopic gastrostomy (PEG) tube placement ICD Code: Z93.1 Status: Chronic (6) H/O cardiac arrest ICD Code: Z86.74 Status: Chronic (7) S/P AAA repair ICD Code: Z98.890 Status: Resolved (8) Dementia ICD Code: F03.90 Status: Chronic (9) Schizophrenia ICD Code: F20.9 Status: Chronic (10) Diabetes mellitus type 2, controlled ICD Code: E11.9 Status: Chronic (11) CAD (coronary artery disease) ICD Code: I25.10 Status: Chronic (12) Encephalopathy acute ICD Code: G93.40 Status: Chronic Assessment and Plan [id number] respiratory failure Status post tracheostomy since 2009. 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 Tracheal stent occlusion with clots and debris on 07/01/16 status post revision. 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 History of pseudomonas and stenotrophomonas lower respiratory tract infection from his bronchoscopy 07/04/16. Tracheal stent dislodgment status post removal of the fractured stent and placement of new stent on 07/11/16, stent revision on 07/17/16. New stent placement on 08/03. Transferred to the ICU for hypoxemia. S/p antibiotics. - Continue with oxygen keep sat >92%. - Bronchodilators, pulm toilet, trach care. Levsin and glycopyrrolate available. - 10/06 T-piece trials initiated. - follow up with pulmonology. - Patient is tolerating T piece Seizure disorder/ Severe Anoxic encephalopathy Negative MRI studies. Neurology consult appreciated. EEG showing PLEDs, no seizure activity. Unclear what neurologic baseline is since patient had 2 cardiac arrests over at [facility]. Patient initially on Depakote and Keppra with the patient's daughter refusing these medications, these medications were discontinued by the lacquer mixer. 10/14 patient noted to have some faced twitching. I will reconsult neurology. 10/15 appreciate neurology recommendations - neurochecks q 4 hrs, Ativan as needed for seizures more than 3 minutes and EEG ordered. Nutrition S/P percutaneous endoscopic gastrostomy (PEG) tube placement. - On tube feeds via PEG tube-Jevity 1.5@60ml/hr and tolerating them well. Cardiac arrest Patient has history of cardiac arrest on August 13 and . Palliative care consult appreciated. - On Coreg 12.5mg BID, Lisinopril 10mg daily, ASA 81 mg daily. - follow up with palliative care. - telemetry. 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 - continue cardiac regimen. Anemia Hgb not far from baseline. Iron studies noted. B12 and folic acid levels elevated. Likely anemia of chronic disease. - check Hemoccult. - follow CBC. Diabetes mellitus type 2 Last A1c in our system was 5.3%. Diabetes is diet-controlled with blood sugars stable. There is no need for regular Accu-Cheks and to cover with supplemental insulin scale. - monitor BMP as needed. Abdominal distention Noted on exam 10/10/16. KUB unremarkable. - Bowel regimen. - monitor. Hypotension - resolved. Patient's systolic blood pressure in the 80s on 10/13 Lisinopril was held and patient was treated with IV normal saline bolus of 250 mL's after which patient's blood pressure was stable. 10/15 resume lisinopril since bp elevated and uncontrolled earlier today. GI prophylaxis- On Protonix 40mg daily DVT prophylaxis- Heparin Sq Discharge Planning Patient's daughter wants to take her home. As per RN patient's family stated that they are not ready to get the patient today or this weekend since they are going away. As per RN report the patient's family will be back on the night of October 22. The patient cannot be safely discharged. Problem Qualifiers (1) Dementia: Qualified Code: F03.90 - Dementia without behavioral disturbance, unspecified dementia type (2) Diabetes mellitus type 2, controlled: Qualified Code: E11.8 - Controlled type 2 diabetes mellitus with complication, without long-term current use of insulin Ezequiel Pelletier MD October 15, 2016 18:44
[2016-10-15 23:43] LABS: C. DIFF EPI 027 PRESUMPTIVE NEGATIVE (NEGATIVE); C. DIFF TOXIN PCR NEGATIVE (NEGATIVE)
[2016-10-15] MEDS: HYOSCYAMINE SOLN 0.125 MG/ML 15 ML BTL PO PRN (23:50)
[2016-10-16] VITALS (9 sets, daily range): BP systolic 98–146; BP diastolic 55–80; PULSE 63–87; RESP 18–21; TEMP 97.3–98.2; O2SAT 94–100
[2016-10-16] MEDS: HYOSCYAMINE SOLN 0.125 MG/ML 15 ML BTL PO PRN (04:03)
[2016-10-16] MEDS: HEPARIN SODIUM - SQ 10,000 UNITS/ML VIAL SQ SCH ×3 (05:03→22:37)
[2016-10-16] MEDS: METOCLOPRAMIDE HCL 10 MG/2 ML VIAL IV PUSH SCH ×3 (05:04→22:38)
[2016-10-16] MEDS: CARVEDILOL 12.5 MG TAB PEG SCH ×2 (08:20→19:54)
[2016-10-16] MEDS: PANTOPRAZOLE SODIUM 40 MG VIAL IV PUSH SCH (08:20)
[2016-10-16] MEDS: GLYCOPYRROLATE 1 MG TAB PEG SCH ×3 (08:21→18:17)
[2016-10-16] MEDS: LISINOPRIL 10 MG TAB PEG SCH (08:21)
[2016-10-16] MEDS: ASPIRIN 81 MG CHEW TAB PEG SCH (08:21)
[2016-10-16] MEDS: SODIUM CHLORIDE 1 GRAM TAB PO SCH ×2 (08:21→18:17)
[2016-10-16] MEDS: SODIUM CHLORIDE 0.9% FLUSH 10 ML FLUSH IV FLUSH SCH ×3 (08:22→19:54)
--- NOTE | 2016-10-16 11:45 | HHI.PR ---
Subjective Remarks Follow-up visit respiratory failure tracheostomy tube with stent placements, seizure disorder- EEG epileptic discharges, diabetes, hypertension. Patient seen and examined today. Eyes closed not opening to any tactile or verbal stimulation. Notable jerking movement of the right eye and right hand intermittently. Patient appears comfortable. As per nursing, no acute issues overnight. Objective Vitals Vital Signs Date Time Temp Pulse Resp B/P Pulse Ox O2 Delivery O2 Flow Rate FiO2 10/16/16 10:33 99 T-piece 28 10/16/16 08:06 98.0 84 21 118/70 97 10/16/16 04:00 98.2 87 18 142/77 99 10/16/16 00:00 98.2 73 18 134/69 100 10/15/16 21:20 T-Piece 7.00 28 Humidified 10/15/16 20:00 98.2 99 18 151/85 95 10/15/16 19:49 74 10/15/16 16:00 T-Piece 7.00 28 Humidified 10/15/16 16:00 97.8 73 20 139/67 100 10/15/16 12:37 98 T-piece 28 10/15/16 12:00 T-Piece 7.00 28 Humidified 10/15/16 12:00 99.0 81 18 156/85 93 I/O 10/15/16 10/15/16 10/15/16 10/16/16 10/16/16 10/16/16 06:59 14:59 22:59 06:59 14:59 22:59 Intake Total 584 ml 1000 ml 592 ml 602 ml Balance 584 ml 1000 ml 592 ml 602 ml Intake Oral 0 ml 0 ml IV Total 2 ml 2 ml 2 ml Tube Feeding 582 ml 1000 ml 590 ml 600 ml # Voids 2 2 0 1 # Bowel Movements 0 1 0 0 Result Diagram: 10/15/16 0450 10/15/16 0450 Imaging Last Impressions Abdomen X-Ray 10/10/16 0000 Signed Impressions: Service Date/Time: Monday, October 10, 2016 13:59 - CONCLUSION: 1. Normal bowel gas pattern. 2. Aortic endograft. Jace Mason Jr., MD Chest X-Ray 10/07/16 0600 Signed Impressions: Service Date/Time: Friday, October 07, 2016 03:43 - CONCLUSION: The previously noted left lung infiltrate has resolved. No definite new infiltrates are seen. Yoni Guaman MD Objective Remarks GENERAL: This is a gentleman, noncommunicative, trach dependent, NAD SKIN: Sacral decubiti with wound packing. HEAD: Atraumatic. Normocephalic. EYES: Left-sided ptosis No scleral icterus. No injection or drainage. Eyes deviated to the right. ENT: Nose without bleeding, purulent drainage or septal hematoma Airway patent. NECK: Trachea midline. No JVD. Tracheostomy in place CARDIOVASCULAR: Regular rate and rhythm without murmurs, gallops, or rubs. RESPIRATORY: Bilateral rhonchi, no wheezing. No crackles auscultated. GASTROINTESTINAL: Abdomen soft, non-tender, nondistended. No guarding. No suprapubic tenderness. PEG in place, no erythema or purulent discharge observed. MUSCULOSKELETAL: Bilateral lower extremity contracture. Atrophic. NEUROLOGICAL: Eyes closed. Does not follow any commands. Bilateral upper and lower extremity contractures with muscle atrophy. 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 Cesar is a 80-year -[place] male who was transferred from [facility]. He was initially admitted to the hospital on July 01. At that time he had a problem with the tracheostomy tube. He has a history of tracheostomy and he has a tracheal stent. He had a problem with the stent and he was sent to [facility] where he had multiple procedures done. The trach was revised and clots were removed. While he was over there he had multiple bronchoscopies, cardiac arrest x2 and multiple infections. Now he is sent over to [facility] for further management. [id number] respiratory failure Status post tracheostomy since 2009. 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 Tracheal stent occlusion with clots and debris on 07/01/16 status post revision. 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 History of pseudomonas and stenotrophomonas lower respiratory tract infection from his bronchoscopy 07/04/16. Tracheal stent dislodgment status post removal of the fractured stent and placement of new stent on 07/11/16, stent revision on 07/17/16. New stent placement on 08/03. Transferred to the ICU for hypoxemia. S/p antibiotics. - Continue with oxygen keep sat >92%. - Bronchodilators, pulm toilet, trach care. Levsin and glycopyrrolate available. - 10/06 T-piece trials initiated. Tolerating. - follow up with pulmonology. Seizure disorder/ Severe Anoxic encephalopathy - Negative MRI studies. Neurology consult appreciated. EEG showing PLEDs, no seizure activity. Unclear what neurologic baseline is since patient had 2 cardiac arrests over at [facility]. - Patient initially on Depakote and Keppra with the patient's daughter refusing these medications, these medications were discontinued by the transmitter operator. - Neurology reconsulted for facial twitching noted 10/14/16 - Neurology recommendations - neurochecks q 4 hrs, Ativan as needed for seizures more than 3 minutes and EEG ordered. - Noted continued to have facial twitching and right upper arm jerking movement, informed nurse need ativan Nutritional Support S/P percutaneous endoscopic gastrostomy (PEG) tube placement. - On tube feeds via PEG tube-Jevity 1.5@60ml/hr and tolerating them well. - Monitor. Increased risk for aspiration. Cardiac arrest Patient has history of cardiac arrest on August 13 and . Palliative care consult appreciated. - On Coreg 12.5mg BID, Lisinopril 10mg daily, ASA 81 mg daily. - Palliative care following - they spoke with daughter and plan is for patient to go home with [facility] arrangements - Continue telemetry. 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 - continue cardiac regimen. Anemia, macrocytic Hgb not far from baseline. Iron studies noted. B12 and folic acid levels elevated. Likely anemia of chronic disease. - check Hemoccult. - We'll start iron supplementation, anemia of chronic disease Diabetes mellitus type 2 Last A1c in our system was 5.3%. - Diabetes is diet-controlled with blood sugars stable. There is no need for regular Accu-Cheks and to cover with supplemental insulin scale. - monitor BMP as needed. Abdominal distention Noted on exam 10/10/16. KUB unremarkable. - Bowel regimen. - Monitor. HTN Hypotension episode - resolved. - On Coreg 12.5 mg twice a day, decrease lisinopril to 5 mg daily with hold parameters - Monitor BP trend GI prophylaxis- On Protonix 40mg daily DVT prophylaxis- Heparin Sq Discussed with patient, nursing, Dr. Benson Discharge Planning Patient's daughter wants to take her home. As per RN patient's family stated that they are not ready to get the patient today or this weekend since they are going away. As per RN report the patient's family will be back on the night of October 22. The patient cannot be safely discharged. Problem Qualifiers (1) Dementia: Qualified Code: F03.90 - Dementia without behavioral disturbance, unspecified dementia type (2) Diabetes mellitus type 2, controlled: Qualified Code: E11.8 - Controlled type 2 diabetes mellitus with complication, without long-term current use of insulin Donnell Ortiz October 16, 2016 11:45
[2016-10-16] MEDS: FERROUS SULFATE 300 MG /5ML UDC PO SCH (14:50)
[2016-10-16] MEDS: FLUCONAZOLE 200 MG PREMIX BAG 100 ML IV SCH (14:58)
[2016-10-16] MEDS: TAMSULOSIN HCL 0.4 MG CAP PO SCH (15:08)
--- NOTE | 2016-10-16 19:07 | HHI.PR ---
Subjective Remarks 80 YOAA male multiple co morbid condition VDRF,Trach, tracheal stent no fever Tolerates Trach collar Small amount of trach secretions No new complaint Objective Vital Signs Vital Signs Date Time Temp Pulse Resp B/P Pulse Ox O2 Delivery O2 Flow Rate FiO2 10/16/16 16:23 97.3 82 19 145/80 100 10/16/16 12:10 97.5 81 20 98/55 96 10/16/16 10:33 99 T-piece 28 10/16/16 08:06 98.0 84 21 118/70 97 10/16/16 04:00 98.2 87 18 142/77 99 10/16/16 00:00 98.2 73 18 134/69 100 10/15/16 21:20 T-Piece 7.00 28 Humidified 10/15/16 20:00 98.2 99 18 151/85 95 10/15/16 19:49 74 I/O 10/15/16 10/15/16 10/15/16 10/16/16 10/16/16 10/16/16 07:00 15:00 23:00 07:00 15:00 23:00 Intake Total 584 ml 1000 ml 592 ml 602 ml 1000 ml Balance 584 ml 1000 ml 592 ml 602 ml 1000 ml Intake Oral 0 ml 0 ml IV Total 2 ml 2 ml 2 ml 100 ml Tube Feeding 582 ml 1000 ml 590 ml 600 ml 600 ml Other 300 ml # Voids 2 2 0 1 2 # Bowel Movements 0 1 0 0 Result Diagram: 10/15/16 0450 10/15/16 0450 Objective Remarks GENERAL: Elderly male, on Vent SKIN: Warm and dry. HEAD: Normocephalic. EYES: No scleral icterus. No injection or drainage. NECK: Supple, trachea midline. No JVD or lymphadenopathy. Has trach CARDIOVASCULAR: Regular rate and rhythm without murmurs, gallops, or rubs. RESPIRATORY: Breath sounds equal bilaterally. No accessory muscle use. GASTROINTESTINAL: Abdomen soft, non-tender, nondistended. PEG tube in place MUSCULOSKELETAL: No cyanosis, or edema. BACK: Nontender without obvious deformity. No CVA tenderness. A/P Assessment and Plan VDRF Trach Tracheal stent Sz disorder S/P AAA repair S/P cardiac arrest PLAN: Trach care Aerosol nebs TF Cont trach collar Wound care Daron Rock MD October 16, 2016 19:07
[2016-10-16] MEDS: JUVEN POWDER 1 PACK G-TUBE SCH (19:55)
[2016-10-17] VITALS (11 sets, daily range): BP systolic 124–175; BP diastolic 63–97; PULSE 60–83; RESP 16–24; TEMP 96.9–98.1; O2SAT 94–99
[2016-10-17] MEDS: METOCLOPRAMIDE HCL 10 MG/2 ML VIAL IV PUSH SCH ×3 (05:06→21:27)
[2016-10-17] MEDS: HEPARIN SODIUM - SQ 10,000 UNITS/ML VIAL SQ SCH ×3 (05:06→21:27)
[2016-10-17] MEDS: SODIUM CHLORIDE 1 GRAM TAB PO SCH ×2 (07:55→18:20)
[2016-10-17] MEDS: GLYCOPYRROLATE 1 MG TAB PEG SCH ×3 (07:55→18:20)
[2016-10-17] MEDS: ASPIRIN 81 MG CHEW TAB PEG SCH (07:56)
[2016-10-17] MEDS: PANTOPRAZOLE SODIUM 40 MG VIAL IV PUSH SCH (07:56)
[2016-10-17] MEDS: FERROUS SULFATE 300 MG /5ML UDC PO SCH (07:56)
[2016-10-17] MEDS: CARVEDILOL 12.5 MG TAB PEG SCH ×2 (07:56→21:27)
[2016-10-17] MEDS: SODIUM CHLORIDE 0.9% FLUSH 10 ML FLUSH IV FLUSH SCH ×3 (07:57→21:27)
[2016-10-17] MEDS ORDERED: LISINOPRIL 10 MG TAB PEG SCH (09:00)
[2016-10-17] MEDS: RESP: ALBUTEROL 2.5 MG/IPRATROPIUM 0.5 MG NEB (PRN) NEB (12:15)
--- NOTE | 2016-10-17 12:18 | HHI.PR ---
Subjective Remarks In bed. Patient is noted with increased secretions. Susvtioned well by the nurse and respiratory therapist. With jerking movements. EEG in the morning. VSS. Objective Vitals Vital Signs Date Time Temp Pulse Resp B/P Pulse Ox O2 Delivery O2 Flow Rate FiO2 10/17/16 09:15 98 T-piece 28 10/17/16 08:00 97.7 83 24 139/90 96 10/17/16 04:18 99 T-piece 28 10/17/16 04:00 97.9 83 20 172/88 94 10/17/16 00:51 97.7 65 20 138/87 99 10/16/16 20:05 63 10/16/16 20:05 T-Piece 7.00 28 Humidified 10/16/16 20:00 97.4 67 20 146/72 94 10/16/16 16:23 97.3 82 19 145/80 100 I/O 10/16/16 10/16/16 10/16/16 10/17/16 10/17/16 10/17/16 07:00 15:00 23:00 07:00 15:00 23:00 Intake Total 602 ml 1000 ml 930 ml 662 ml Output Total 400 ml Balance 602 ml 600 ml 930 ml 662 ml Intake Oral 0 ml IV Total 2 ml 100 ml 2 ml 2 ml Tube Feeding 600 ml 600 ml 808 ml 600 ml Tube Irrigant 120 ml 60 ml Other 300 ml Stool Total 400 ml # Voids 1 2 1 3 # Bowel Movements 0 0 Result Diagram: 10/15/16 0450 10/15/16 0450 Imaging Last Impressions Abdomen X-Ray 10/10/16 0000 Signed Impressions: Service Date/Time: Monday, October 10, 2016 13:59 - CONCLUSION: 1. Normal bowel gas pattern. 2. Aortic endograft. Jace Mason Jr., MD Chest X-Ray 10/07/16 0600 Signed Impressions: Service Date/Time: Friday, October 07, 2016 03:43 - CONCLUSION: The previously noted left lung infiltrate has resolved. No definite new infiltrates are seen. Yoni Guaman MD Objective Remarks GA: patient nonverbal, trach in place, with jerking movements of the face and right hand. SKIN: Sacral decubitus with wound packing. EYES: Left-sided ptosis No scleral icterus. No injection or drainage. Eyes deviated to the right. ENT: Nose without bleeding, purulent drainage or septal hematoma Airway patent. NECK: Trachea midline. No JVD. Tracheostomy in place CARDIOVASCULAR: Regular rate and rhythm without murmurs, gallops, or rubs. RESPIRATORY: Bilateral rhonchi, no wheezing. No crackles auscultated. GASTROINTESTINAL: Abdomen soft, non-tender, nondistended. No guarding. No suprapubic tenderness. PEG in place, no erythema or purulent discharge observed. MUSCULOSKELETAL: Bilateral lower extremity contracture. Atrophic. NEUROLOGICAL: Eyes closed. Does not follow any commands. Bilateral upper and lower extremity contractures with muscle atrophy. Jerking movement right upper arm, right eye twitching intermittently Procedures None A/P Problem List: (1) [id number]-[id number] respiratory failure ICD Code: J96.20 Status: Chronic (2) Hyperkalemia ICD Code: E87.5 Status: Resolved (3) Seizure disorder ICD Code: G40.909 Status: Chronic (4) Tracheostomy in place ICD Code: Z93.0 Status: Chronic (5) S/P percutaneous endoscopic gastrostomy (PEG) tube placement ICD Code: Z93.1 Status: Chronic (6) H/O cardiac arrest ICD Code: Z86.74 Status: Chronic (7) S/P AAA repair ICD Code: Z98.890 Status: Resolved (8) Dementia ICD Code: F03.90 Status: Chronic (9) Schizophrenia ICD Code: F20.9 Status: Chronic (10) Diabetes mellitus type 2, controlled ICD Code: E11.9 Status: Chronic (11) CAD (coronary artery disease) ICD Code: I25.10 Status: Chronic (12) Encephalopathy acute ICD Code: G93.40 Status: Chronic Assessment and Plan Mr. Cesar is a 80-year -Welsh male who was transferred from [facility]. He was initially admitted to the hospital on July 01. At that time he had a problem with the tracheostomy tube. He has a history of tracheostomy and he has a tracheal stent. He had a problem with the stent and he was sent to [facility] where he had multiple procedures done. The trach was revised and clots were removed. While he was over there he had multiple bronchoscopies, cardiac arrest x2 and multiple infections. Now he is sent over to [facility] for further management. [id number]-[id number] respiratory failure Status post tracheostomy since 2009. 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 Tracheal stent occlusion with clots and debris on 07/01/16 status post revision. 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 History of pseudomonas and stenotrophomonas lower respiratory tract infection from his bronchoscopy 07/04/16. Tracheal stent dislodgment status post removal of the fractured stent and placement of new stent on 07/11/16, stent revision on 07/17/16. New stent placement on 08/03. Transferred to the ICU for hypoxemia. S/p antibiotics. - Continue with oxygen keep sat >92%. - Bronchodilators, pulm toilet, trach care. Levsin and glycopyrrolate as need. - 10/06 T-piece trials initiated. Tolerating. - follow up with pulmonology. Seizure disorder/ Severe Anoxic encephalopathy - Negative MRI studies. Neurology consult appreciated. EEG showing PLEDs, no seizure activity. Unclear what neurologic baseline is since patient had 2 cardiac arrests over at [facility]. - Patient initially on Depakote and Keppra with the patient's daughter refusing these medications, these medications were discontinued by the material handler. - Neurology reconsulted for facial twitching noted 10/14/16 - Neurology recommendations - neurochecks q 4 hrs, Ativan as needed for seizures more than 3 minutes. - Noted continued to have facial twitching and right upper arm jerking movement, continue ativan. EEG pending , will reconsult neurology if need. Nutritional Support S/P percutaneous endoscopic gastrostomy (PEG) tube placement. - On tube feeds via PEG tube-Jevity 1.5@60ml/hr and tolerating them well. - Monitor. Increased risk for aspiration. Cardiac arrest Patient has history of cardiac arrest on August 13 and . Palliative care consult appreciated. - On Coreg 12.5mg BID, Lisinopril 10mg daily, ASA 81 mg daily. - Palliative care following - they spoke with daughter and plan is for patient to go home with [facility] - Continue telemetry. 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 - continue cardiac regimen. Anemia, macrocytic Hgb not far from baseline. Iron studies noted. B12 and folic acid levels elevated. Likely anemia of chronic disease. - check Hemoccult. - We'll start iron supplementation, anemia of chronic disease Diabetes mellitus type 2 Last A1c in our system was 5.3%. - Diabetes is diet-controlled with blood sugars stable. There is no need for regular Accu-Cheks and to cover with supplemental insulin scale. - monitor BMP as needed. Abdominal distention Noted on exam 10/10/16. KUB unremarkable. - Bowel regimen. - Monitor. HTN Hypotension episode - resolved. - On Coreg 12.5 mg twice a day, decrease lisinopril to 5 mg daily with hold parameters - Monitor BP trend GI prophylaxis- On Protonix 40mg daily DVT prophylaxis- Heparin Sq Discussed with patient, nurse, respiratory therapist Discharge Planning Patient's daughter wants to take her home. As per RN patient's family stated that they are not ready to get the patient today or this weekend since they are going away. As per RN report the patient's family will be back on the night of October 22. The patient cannot be safely discharged. Problem Qualifiers (1) Dementia: Qualified Code: F03.90 - Dementia without behavioral disturbance, unspecified dementia type (2) Diabetes mellitus type 2, controlled: Qualified Code: E11.8 - Controlled type 2 diabetes mellitus with complication, without long-term current use of insulin Aisha Benson MD October 17, 2016 12:18
[2016-10-17] MEDS: LISINOPRIL 10 MG TAB PEG SCH (13:21)
[2016-10-17] MEDS: TAMSULOSIN HCL 0.4 MG CAP PO SCH (16:00)
[2016-10-17] MEDS: FLUCONAZOLE 200 MG PREMIX BAG 100 ML IV SCH (16:57)
--- NOTE | 2016-10-17 19:27 | HHI.PR ---
Subjective Remarks 80 YOAA male multiple co morbid condition VDRF,Trach, tracheal stent no fever Tolerates Trach collar No new complaint Trach secretion decreased Objective Vital Signs Vital Signs Date Time Temp Pulse Resp B/P Pulse Ox O2 Delivery O2 Flow Rate FiO2 10/17/16 17:58 94 T-piece 6.00 28 10/17/16 16:00 96.9 80 16 175/93 10/17/16 12:00 97.2 60 20 133/63 94 10/17/16 09:15 98 T-piece 28 10/17/16 08:00 97.7 83 24 139/90 96 10/17/16 08:00 94 T-Piece 7.00 28 Humidified 10/17/16 08:00 83 10/17/16 04:18 99 T-piece 28 10/17/16 04:00 97.9 83 20 172/88 94 10/17/16 00:51 97.7 65 20 138/87 99 10/16/16 20:05 63 10/16/16 20:05 T-Piece 7.00 28 Humidified 10/16/16 20:00 97.4 67 20 146/72 94 I/O 10/16/16 10/16/16 10/16/16 10/17/16 10/17/16 10/17/16 07:00 15:00 23:00 07:00 15:00 23:00 Intake Total 602 ml 1000 ml 930 ml 662 ml 1000 ml Output Total 400 ml 200 ml Balance 602 ml 600 ml 930 ml 662 ml 800 ml Intake Oral 0 ml 0 ml IV Total 2 ml 100 ml 2 ml 2 ml 100 ml Tube Feeding 600 ml 600 ml 808 ml 600 ml 600 ml Tube Irrigant 120 ml 60 ml Other 300 ml 300 ml Stool Total 400 ml 200 ml # Voids 1 2 1 3 2 # Bowel Movements 0 0 Result Diagram: 10/15/1644910/15/16 0450 Objective Remarks GENERAL: Elderly male, on Vent SKIN: Warm and dry. HEAD: Normocephalic. EYES: No scleral icterus. No injection or drainage. NECK: Supple, trachea midline. No JVD or lymphadenopathy. Has trach CARDIOVASCULAR: Regular rate and rhythm without murmurs, gallops, or rubs. RESPIRATORY: Breath sounds equal bilaterally. No accessory muscle use. GASTROINTESTINAL: Abdomen soft, non-tender, nondistended. PEG tube in place MUSCULOSKELETAL: No cyanosis, or edema. BACK: Nontender without obvious deformity. No CVA tenderness. A/P Assessment and Plan VDRF Trach Tracheal stent Sz disorder S/P AAA repair S/P cardiac arrest PLAN: Trach care Aerosol nebs TF Cont trach collar Wound care Daron Rock MD October 17, 2016 19:27
--- NOTE | 2016-10-17 20:52 | MG ---
cc: KELVIN MENDOZA Lab No: Date: 10/17/2016 Age: Sex: M Race: ELECTROENCEPHALOGRAM NUMBER [id number] INTRODUCTION A 80-year-old. Hyperventilation not performed. This is a repeat EEG. Bilateral sharps and spikes on 10/10/2016. Status post cardiac arrest. Schizophrenia. MEDICATIONS Lisinopril. DESCRIPTION The recording again shows bilateral spikes and poly spike activity occurring every 1-2 seconds. More prominent over the central head region than the lateral head regions and this continues throughout the recording it becomes less prominent and occurring about once every two seconds. There is an underlying background of about 8-10 Hz with intermixed 5 Hz diffuse slowing. The recording overall is synchronous and symmetrical. Some muscle artifact is noted. These are less frequent towards the end of the recording where they might occur once every 9 seconds or so. Some chewing artifact was noted. Some mild twitching was seen but did not correlate with any seizure activity. At the beginning of the recording the episodes are quite frequent and then they get better as the recording goes on. It does not state whether the patient was given any additional medications to make this occur. Towards the end of the recording they are better but still there is some bi-central spikes and spike wave activity such as at epoch 22 and these do occur also at the bitemporal frontal lobes. IMPRESSION Significantly abnormal EEG quite epileptogenic. At times looked a bit like BIPLEDs. Clinical correlation is needed. MD NAPOLEON Caldwell/UGO /8:39 PM /8:44 PM
[2016-10-17] MEDS: JUVEN POWDER 1 PACK G-TUBE SCH (21:00)
--- NOTE | 2016-10-17 22:18 | HHI.PR ---
Review/Management Diagnosis Chronic encephalopathy Clinical seizures EEG with evidence of epileptogenicity Plan Neuro checks Load with Dilantin NOW, 1500mg iv Maintenance dose of Dilantin 100mg Q8h, starting 10/18/2016 at 01:00 Obtain Dilantin level 10/19/2016 on 13:00 Seizure precautions Ativan 2mg for seizures lasting > 3 minutes DVT prophylaxis Supportive care Diagnosis/Plan: Subjective Subjective Comments EEG revealed Bi PLEDs, with evidence of epileptogenicity Patient was noted clinically by the attending team to have face and body jerking ? seizures Active Medications Current Medications Medications (Trade) Dose Ordered Sig/Harry Route Start Time Stop Time Status Last Admin (NS Flush) 2 ml UNSCH PRN IV FLUSH 09/20/16 22:30 10/13/16 09:54 (NS Flush) 2 ml BID IV FLUSH 09/21/16 09:00 10/17/16 21:27 (Narcan Inj) 0.4 mg UNSCH PRN IV 09/20/16 22:30 (Tylenol) 650 mg Q6HR PRN PEG 09/21/16 01:30 09/26/16 17:50 (Aspirin Chew) 81 mg DAILY PEG 09/21/16 09:00 10/17/16 07:56 (Dulcolax Supp) 10 mg DAILY PRN RECTAL 09/21/16 01:30 10/08/16 12:26 (Ativan) 2 mg Q8HR PRN PEG 09/21/16 01:30 (Zofran Inj) 4 mg Q4HR PRN IV PUSH 09/21/16 01:30 (D50w (Vial) Inj) 25 ml UNSCH PRN IV PUSH 09/21/16 01:30 (Glucagon Inj) 1 mg UNSCH PRN OTHER 09/21/16 01:30 (Protonix Inj) 40 mg DAILY IV PUSH 09/21/16 10:01 10/17/16 07:56 (Robinul) 1 mg TID PEG 09/21/16 13:00 10/17/16 18:20 (Heparin Inj) 5,000 units Q8HR SQ 09/21/16 14:00 10/17/16 21:27 (Reglan Inj) 5 mg Q8HR IV PUSH 09/21/16 14:00 10/17/16 21:27 (NS Flush) See Protocol DAILY IV FLUSH 09/23/16 09:00 10/17/16 07:57 (NS Flush) See Protocol UNSCH PRN IV FLUSH 09/22/16 13:45 10/13/16 09:54 (Heparin Central Flush) See Protocol DAILY IV FLUSH 09/23/16 09:00 10/17/16 07:56 (Heparin Central Flush) See Protocol UNSCH PRN IV FLUSH 09/22/16 13:45 Sodium Chloride UNSCH PRN IV FLUSH 09/22/16 13:45 10/13/16 09:54 (NS 1000 ml Inj) 1,000 ml @ 0 mls/hr Q0M IV 09/22/16 17:30 10/07/16 16:25 Carvedilol 12.5 mg 12.5 mg BID PEG 09/24/16 15:00 10/17/16 21:27 (Diflucan 200 Mg Premix Bag) 100 ml @ 100 mls/hr Q24H IV 10/05/16 16:00 10/17/16 16:57 Miscellaneous Information Patient in critical care unit? Ass... Q361D .XX 10/07/16 08:30 (Levsin Liq) 0.125 mg Q4H PRN PO 10/09/16 18:15 10/16/16 04:03 (Sodium Chloride) 1 gm BID@09,18 PO 10/12/16 18:00 10/17/16 18:20 (Mark Powder) 1 pack BID G-TUBE 10/13/16 21:00 10/15/16 20:24 (Ferrous Sulfate Liq) 300 mg DAILY PO 10/16/16 14:30 10/17/16 07:56 (Prinivil) 10 mg DAILY PEG 10/17/16 09:00 10/17/16 13:21 Allergies Allergies Coded Allergies Penicillin (Verified Allergy, Unknown, 06/30/16) *MDRO Multi-Drug Resistant Organism (Verified Adverse Reaction, Unknown, MRSA , 10/09/16) Codeine (Verified Adverse Reaction, Unknown, Anaphylaxis, 06/30/16) Exam I&O / VS 10/16/16 10/16/16 10/17/16 15:00 23:00 07:00 Intake Total 1000 ml 930 ml 662 ml Output Total 400 ml Balance 600 ml 930 ml 662 ml IV Total 100 ml 2 ml 2 ml Tube Feeding 600 ml 808 ml 600 ml Tube Irrigant 120 ml 60 ml Other 300 ml Stool Total 400 ml # Voids 2 1 3 # Bowel Movements 0 Vital Signs Date Time Temp Pulse Resp B/P Pulse Ox O2 Delivery O2 Flow Rate FiO2 10/17/16 20:41 98.1 65 18 124/97 99 10/17/16 17:58 94 T-piece 6.00 28 10/17/16 16:00 96.9 80 16 175/93 10/17/16 12:00 97.2 60 20 133/63 94 10/17/16 09:15 98 T-piece 28 10/17/16 08:00 97.7 83 24 139/90 96 10/17/16 08:00 94 T-Piece 7.00 28 Humidified 10/17/16 08:00 83 10/17/16 04:18 99 T-piece 28 10/17/16 04:00 97.9 83 20 172/88 94 10/17/16 00:51 97.7 65 20 138/87 99 Objective Micro and Labs Date/Time Procedure Status Source Growth 10/16/16 18:25 Stool Occult Blood (GALLO) - Final Complete Stool Stool HEMOCCULT NEGATIVE Radha Carter MD October 17, 2016 22:18
[2016-10-17] MEDS ORDERED: PHENYTOIN INJ 1,500 MG in SODIUM CHLOR 0.9% 250 ML INJ 250 ML IV ONE (22:20)
[2016-10-18] VITALS (9 sets, daily range): BP systolic 103–174; BP diastolic 57–95; PULSE 75–92; RESP 18–22; TEMP 97.5–98.9; O2SAT 94–100
[2016-10-18] MEDS: HYOSCYAMINE SOLN 0.125 MG/ML 15 ML BTL PO PRN ×5 (01:30→22:18)
[2016-10-18] MEDS: HEPARIN SODIUM - SQ 10,000 UNITS/ML VIAL SQ SCH ×3 (05:04→22:03)
[2016-10-18] MEDS: METOCLOPRAMIDE HCL 10 MG/2 ML VIAL IV PUSH SCH ×3 (05:04→22:03)
[2016-10-18] MEDS: PHENYTOIN INJ 100 MG/2 ML VIAL IV SCH ×3 (05:05→22:02)
[2016-10-18] MEDS: JUVEN POWDER 1 PACK G-TUBE SCH ×2 (09:00→22:04)
[2016-10-18] MEDS: SODIUM CHLORIDE 0.9% FLUSH 10 ML FLUSH IV FLUSH SCH ×3 (09:00→22:00)
[2016-10-18] MEDS: LISINOPRIL 10 MG TAB PEG SCH (09:28)
[2016-10-18] MEDS: FERROUS SULFATE 300 MG /5ML UDC PO SCH (09:28)
[2016-10-18] MEDS: SODIUM CHLORIDE 1 GRAM TAB PO SCH ×2 (09:28→17:29)
[2016-10-18] MEDS: CARVEDILOL 12.5 MG TAB PEG SCH ×2 (09:28→22:01)
[2016-10-18] MEDS: PANTOPRAZOLE SODIUM 40 MG VIAL IV PUSH SCH (09:28)
[2016-10-18] MEDS: GLYCOPYRROLATE 1 MG TAB PEG SCH ×3 (09:28→17:29)
[2016-10-18] MEDS: ASPIRIN 81 MG CHEW TAB PEG SCH (09:28)
--- NOTE | 2016-10-18 12:26 | HHI.PR ---
Subjective Remarks In bed. Seizure subsided. With some secretions. Satting well on T piece. Objective Vitals Vital Signs Date Time Temp Pulse Resp B/P Pulse Ox O2 Delivery O2 Flow Rate FiO2 10/18/16 08:28 98 T-piece 6.00 28 10/18/16 08:06 98.4 86 22 171/80 100 10/18/16 04:00 97.5 92 18 143/95 99 10/18/16 00:06 98.9 85 18 103/57 100 10/17/16 20:45 T-Piece 7.00 28 Humidified 10/17/16 20:45 63 10/17/16 20:41 98.1 65 18 124/97 99 10/17/16 20:00 65 10/17/16 17:58 94 T-piece 6.00 28 10/17/16 16:00 96.9 80 16 175/93 I/O 10/17/16 10/17/16 10/17/16 10/18/16 10/18/16 10/18/16 07:00 15:00 23:00 07:00 15:00 23:00 Intake Total 662 ml 1000 ml 1126 ml 628 ml Output Total 200 ml 800 ml Balance 662 ml 800 ml 1126 ml -172 ml Intake Oral 0 ml IV Total 2 ml 100 ml 2 ml 8 ml Tube Feeding 600 ml 600 ml 1004 ml 560 ml Tube Irrigant 60 ml 120 ml 60 ml Other 300 ml Output Urine Total 800 ml Stool Total 200 ml # Voids 3 2 3 # Bowel Movements 0 Result Diagram: 10/15/16 0450 10/15/16 0450 Imaging Last Impressions Abdomen X-Ray 10/10/16 0000 Signed Impressions: Service Date/Time: Monday, October 10, 2016 13:59 - CONCLUSION: 1. Normal bowel gas pattern. 2. Aortic endograft. Jace Mason Jr., MD Chest X-Ray 10/07/16 0600 Signed Impressions: Service Date/Time: Friday, October 07, 2016 03:43 - CONCLUSION: The previously noted left lung infiltrate has resolved. No definite new infiltrates are seen. Yoni Guaman MD Objective Remarks GA: patient nonverbal, trach in place, more calm today, no jerking movements of his face or arm. SKIN: Sacral decubitus with wound packing. EYES: Left-sided ptosis No scleral icterus. No injection or drainage. Eyes deviated to the right. ENT: Nose without bleeding, purulent drainage or septal hematoma Airway patent. NECK: Trachea midline. No JVD. Tracheostomy in place CARDIOVASCULAR: Regular rate and rhythm without murmurs, gallops, or rubs. RESPIRATORY: Bilateral rhonchi, no wheezing. No crackles auscultated. GASTROINTESTINAL: Abdomen soft, non-tender, nondistended. No guarding. No suprapubic tenderness. PEG in place, no erythema or purulent discharge observed. MUSCULOSKELETAL: Bilateral lower extremity contracture. Atrophic. NEUROLOGICAL: Eyes closed. Does not follow any commands. Bilateral upper and lower extremity contractures with muscle atrophy. No jerking movements of his face or arm. 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 Cesar is a 80-year -[place]ones[place] male who was transferred from [facility]. He was initially admitted to the hospital on July 01. At that time he had a problem with the tracheostomy tube. He has a history of tracheostomy and he has a tracheal stent. He had a problem with the stent and he was sent to [facility] where he had multiple procedures done. The trach was revised and clots were removed. While he was over there he had multiple bronchoscopies, cardiac arrest x2 and multiple infections. Now he is sent over to [facility] for further management. Erbbs-[id number]-gtylpcr respiratory failure Status post tracheostomy since 2009. 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 Tracheal stent occlusion with clots and debris on 07/01/16 status post revision. 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 History of pseudomonas and stenotrophomonas lower respiratory tract infection from his bronchoscopy 07/04/16. Tracheal stent dislodgment status post removal of the fractured stent and placement of new stent on 07/11/16, stent revision on 07/17/16. New stent placement on 08/03. Transferred to the ICU for hypoxemia. S/p antibiotics. - Continue with oxygen keep sat >92%. - Bronchodilators, pulm toilet, trach care. Levsin and glycopyrrolate as need. - 10/06 T-piece trials initiated. Tolerating. - follow up with pulmonology. Seizure disorder/ Severe Anoxic encephalopathy - Negative MRI studies. Neurology consult appreciated. EEG showing PLEDs, no seizure activity. Unclear what neurologic baseline is since patient had 2 cardiac arrests over at [facility]. - Patient initially on Depakote and Keppra with the patient's daughter refusing these medications, these medications were discontinued by the impregnating helper. - Neurology reconsulted for facial twitching noted 10/14/16 - Neurology recommendations - neurochecks q 4 hrs, Ativan as needed for seizures more than 3 minutes. - Noted continued to have facial twitching and right upper arm jerking movement, continue ativan. EEG reviewed with aseizure activity. Reconsult neurology, seen by Dr Carter appreciate recommendations. -Loaded with Dilantin , 1500mg IV -Maintenance dose of Dilantin 100mg Q8h, starting 10/18/2016 at 01:00 -Obtain Dilantin level 10/19/2016 on 13:00 -Seizure precautions -Ativan 2mg for seizures lasting > 3 minutes Nutritional Support S/P percutaneous endoscopic gastrostomy (PEG) tube placement. - On tube feeds via PEG tube-Jevity 1.5@60ml/hr and tolerating them well. - Monitor. Increased risk for aspiration. Cardiac arrest Patient has history of cardiac arrest on August 13 and . Palliative care consult appreciated. - On Coreg 12.5mg BID, Lisinopril 10mg daily, ASA 81 mg daily. - Palliative care following - they spoke with daughter and plan is for patient to go home with [facility] - Continue telemetry. 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 - continue cardiac regimen. Anemia, macrocytic Hgb not far from baseline. Iron studies noted. B12 and folic acid levels elevated. Likely anemia of chronic disease. - check Hemoccult. - We'll start iron supplementation, anemia of chronic disease Diabetes mellitus type 2 Last A1c in our system was 5.3%. - Diabetes is diet-controlled with blood sugars stable. There is no need for regular Accu-Cheks and to cover with supplemental insulin scale. - monitor BMP as needed. Abdominal distention Noted on exam 10/10/16. KUB unremarkable. - Bowel regimen. - Monitor. HTN Hypotension episode - resolved. - On Coreg 12.5 mg twice a day, decrease lisinopril to 5 mg daily with hold parameters - Monitor BP trend GI prophylaxis- On Protonix 40mg daily DVT prophylaxis- Heparin Sq Discussed with patient, nurse, respiratory therapist Discharge Planning Patient's daughter wants to take her home. As per RN patient's family stated that they are not ready to get the patient today or this weekend since they are going away. As per RN report the patient's family will be back on the night of October 22. The patient cannot be safely discharged. Problem Qualifiers (1) Dementia: Qualified Code: F03.90 - Dementia without behavioral disturbance, unspecified dementia type (2) Diabetes mellitus type 2, controlled: Qualified Code: E11.8 - Controlled type 2 diabetes mellitus with complication, without long-term current use of insulin Aisha Benson MD October 18, 2016 12:26
--- NOTE | 2016-10-18 16:01 | HHI.PR ---
Subjective Remarks 80 YOAA male multiple co morbid condition VDRF,Trach, tracheal stent no fever Tolerates Trach collar Trach secretion decreased Tolerates TF Objective Vital Signs Vital Signs Date Time Temp Pulse Resp B/P Pulse Ox O2 Delivery O2 Flow Rate FiO2 10/18/16 12:06 98.1 82 20 160/74 100 10/18/16 12:00 T-Piece 7.00 28 Humidified 10/18/16 09:00 T-Piece 7.00 28 Humidified 10/18/16 08:28 98 T-piece 6.00 28 10/18/16 08:06 98.4 86 22 171/80 100 10/18/16 04:00 97.5 92 18 143/95 99 10/18/16 00:06 98.9 85 18 103/57 100 10/17/16 20:45 T-Piece 7.00 28 Humidified 10/17/16 20:45 63 10/17/16 20:41 98.1 65 18 124/97 99 10/17/16 20:00 65 10/17/16 17:58 94 T-piece 6.00 28 I/O 10/17/16 10/17/16 10/17/16 10/18/16 10/18/16 10/18/16 07:00 15:00 23:00 07:00 15:00 23:00 Intake Total 662 ml 1000 ml 1126 ml 628 ml Output Total 200 ml 800 ml Balance 662 ml 800 ml 1126 ml -172 ml Intake Oral 0 ml IV Total 2 ml 100 ml 2 ml 8 ml Tube Feeding 600 ml 600 ml 1004 ml 560 ml Tube Irrigant 60 ml 120 ml 60 ml Other 300 ml Output Urine Total 800 ml Stool Total 200 ml # Voids 3 2 3 # Bowel Movements 0 Result Diagram: 10/15/16 0450 10/15/16 0450 Objective Remarks GENERAL: Elderly male, on Vent SKIN: Warm and dry. HEAD: Normocephalic. EYES: No scleral icterus. No injection or drainage. NECK: Supple, trachea midline. No JVD or lymphadenopathy. Has trach CARDIOVASCULAR: Regular rate and rhythm without murmurs, gallops, or rubs. RESPIRATORY: Breath sounds equal bilaterally. No accessory muscle use. GASTROINTESTINAL: Abdomen soft, non-tender, nondistended. PEG tube in place MUSCULOSKELETAL: No cyanosis, or edema. BACK: Nontender without obvious deformity. No CVA tenderness. A/P Assessment and Plan VDRF Trach Tracheal stent Sz disorder S/P AAA repair S/P cardiac arrest PLAN: Trach care Aerosol nebs TF Cont trach collar Wound care Daron Rock MD October 18, 2016 16:01
[2016-10-18] MEDS: TAMSULOSIN HCL 0.4 MG CAP PO SCH (16:42)
[2016-10-18] MEDS: FLUCONAZOLE 200 MG PREMIX BAG 100 ML IV SCH (16:42)
--- NOTE | 2016-10-18 19:50 | HHI.PR ---
Review/Management Diagnosis Chronic encephalopathy Clinical seizures EEG with evidence of epileptogenicity Plan Neuro checks Dilantin 100mg Q8h Obtain Dilantin level dailyx5 Seizure precautions Ativan 2mg for seizures lasting > 3 minutes DVT prophylaxis Supportive care Diagnosis/Plan: Subjective Subjective Comments No reported seizure activity Dilantin level is therapeutic at 17.8 No change in neuro exam Active Medications Current Medications Medications (Trade) Dose Ordered Sig/Harry Route Start Time Stop Time Status Last Admin (NS Flush) 2 ml UNSCH PRN IV FLUSH 09/20/16 22:30 10/13/16 09:54 (NS Flush) 2 ml BID IV FLUSH 09/21/16 09:00 10/17/16 21:27 (Narcan Inj) 0.4 mg UNSCH PRN IV 09/20/16 22:30 (Tylenol) 650 mg Q6HR PRN PEG 09/21/16 01:30 09/26/16 17:50 (Aspirin Chew) 81 mg DAILY PEG 09/21/16 09:00 10/18/16 09:28 (Dulcolax Supp) 10 mg DAILY PRN RECTAL 09/21/16 01:30 10/08/16 12:26 (Ativan) 2 mg Q8HR PRN PEG 09/21/16 01:30 (Zofran Inj) 4 mg Q4HR PRN IV PUSH 09/21/16 01:30 (D50w (Vial) Inj) 25 ml UNSCH PRN IV PUSH 09/21/16 01:30 (Glucagon Inj) 1 mg UNSCH PRN OTHER 09/21/16 01:30 (Protonix Inj) 40 mg DAILY IV PUSH 09/21/16 10:01 10/18/16 09:28 (Robinul) 1 mg TID PEG 09/21/16 13:00 10/18/16 17:29 (Heparin Inj) 5,000 units Q8HR SQ 09/21/16 14:00 10/18/16 13:33 (Reglan Inj) 5 mg Q8HR IV PUSH 09/21/16 14:00 10/18/16 13:35 (NS Flush) See Protocol DAILY IV FLUSH 09/23/16 09:00 10/18/16 09:00 (NS Flush) See Protocol UNSCH PRN IV FLUSH 09/22/16 13:45 10/13/16 09:54 (Heparin Central Flush) See Protocol DAILY IV FLUSH 09/23/16 09:00 10/18/16 09:29 (Heparin Central Flush) See Protocol UNSCH PRN IV FLUSH 09/22/16 13:45 Sodium Chloride UNSCH PRN IV FLUSH 09/22/16 13:45 10/13/16 09:54 (NS 1000 ml Inj) 1,000 ml @ 0 mls/hr Q0M IV 09/22/16 17:30 10/07/16 16:25 Carvedilol 12.5 mg 12.5 mg BID PEG 09/24/16 15:00 10/18/16 09:28 (Diflucan 200 Mg Premix Bag) 100 ml @ 100 mls/hr Q24H IV 10/05/16 16:00 10/18/16 16:42 Miscellaneous Information Patient in critical care unit? Ass... 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) Codeine (Verified Adverse Reaction, Unknown, Anaphylaxis, 06/30/16) Exam I&O / VS 10/17/16 10/17/16 10/18/16 15:00 23:00 07:00 Intake Total 1000 ml 1126 ml 628 ml Output Total 200 ml 800 ml Balance 800 ml 1126 ml -172 ml Intake Oral 0 ml IV Total 100 ml 2 ml 8 ml Tube Feeding 600 ml 1004 ml 560 ml Tube Irrigant 120 ml 60 ml Other 300 ml Output Urine Total 800 ml Stool Total 200 ml # Voids 2 3 # Bowel Movements 0 Vital Signs Date Time Temp Pulse Resp B/P Pulse Ox O2 Delivery O2 Flow Rate FiO2 10/18/16 17:52 T-piece 6.00 28 10/18/16 16:00 T-Piece 7.00 28 Humidified 10/18/16 12:06 98.1 82 20 160/74 100 10/18/16 12:00 T-Piece 7.00 28 Humidified 10/18/16 09:00 T-Piece 7.00 28 Humidified 10/18/16 08:28 98 T-piece 6.00 28 10/18/16 08:12 75 10/18/16 08:06 98.4 86 22 171/80 100 10/18/16 04:00 97.5 92 18 143/95 99 10/18/16 00:06 98.9 85 18 103/57 100 10/17/16 20:45 T-Piece 7.00 28 Humidified 10/17/16 20:45 63 10/17/16 20:41 98.1 65 18 124/97 99 10/17/16 20:00 65 Exam Comments GENERAL: Nonverbal, noncommunicative, tracheostomy dependent. PEG dependent. HEENT: Atraumatic, normocephalic. Tracheostomy in place. NECK: Tracheostomy in place. CARDIOVASCULAR: Regular rate and rhythm. RESPIRATORY: Decreased air entry bilaterally. GASTROINTESTINAL: Soft abdomen. MUSCULOSKELETAL: Contractures of the bilateral lower extremities. NEUROLOGIC: Nonverbal, does not respond to either verbal or painful stimuli. No spontaneous eye opening. Pupils 2 mm, sluggish reacting to light. No gaze deviation. No facial twitches noted during the encounter. Reflexes 1+ bilateral and symmetrical. No signs of meningeal irritation. Plantars are bilateral mute. Objective Micro and Labs Laboratory Tests Test 10/18/16 12:46 Phenytoin (Dilantin) Level 17.8 Date/Time Procedure Status Source Growth 10/16/16 18:25 Stool Occult Blood (GALLO) - Final Complete Stool Stool HEMOCCULT NEGATIVE Radha Carter MD October 18, 2016 19:49
[2016-10-19] VITALS (10 sets, daily range): BP systolic 119–152; BP diastolic 74–86; PULSE 73–85; RESP 18–26; TEMP 97.1–98.1; O2SAT 90–100
[2016-10-19] MEDS: PHENYTOIN INJ 100 MG/2 ML VIAL IV SCH ×3 (04:34→22:43)
[2016-10-19] MEDS: METOCLOPRAMIDE HCL 10 MG/2 ML VIAL IV PUSH SCH ×3 (04:34→22:44)
[2016-10-19] MEDS: HEPARIN SODIUM - SQ 10,000 UNITS/ML VIAL SQ SCH ×3 (04:35→22:43)
--- NOTE | 2016-10-19 07:58 | HHI.PR ---
Subjective Remarks Mr. Cesar is a 80-year -[place] male who was transferred from [facility]. He was initially admitted to the hospital on July 01. At that time he had a problem with the tracheostomy tube. He has a history of tracheostomy and he has a tracheal stent. He had a problem with the stent and he was sent to [facility] where he had multiple procedures done. The trach was revised and clots were removed. While he was over there he had multiple bronchoscopies, cardiac arrest x2 and multiple infections. Now he is sent over to [facility] for further management. 10/19: Patient seen in his bedroom in the presence of nurse Miss Golden, NO complaint Objective Vital Signs Date Time Temp Pulse Resp B/P Pulse Ox O2 Delivery O2 Flow Rate FiO2 10/19/16 04:00 98.1 85 24 119/79 98 10/19/16 00:00 97.4 75 24 139/74 98 10/18/16 20:07 97.8 81 19 174/93 94 10/18/16 20:00 Trach Collar 6.00 28 T-Piece Humidified 10/18/16 20:00 86 10/18/16 17:52 T-piece 6.00 28 10/18/16 16:07 98.2 84 20 155/90 99 10/18/16 16:00 T-Piece 7.00 28 Humidified 10/18/16 12:06 98.1 82 20 160/74 100 10/18/16 12:00 T-Piece 7.00 28 Humidified 10/18/16 09:00 T-Piece 7.00 28 Humidified 10/18/16 08:28 98 T-piece 6.00 28 10/18/16 08:12 75 10/18/16 08:06 98.4 86 22 171/80 100 I/O 10/18/16 10/18/16 10/18/16 10/19/16 10/19/16 10/19/16 07:00 15:00 23:00 07:00 15:00 23:00 Intake Total 628 ml 0 ml 1012 ml Output Total 800 ml 1300 ml 300 ml 600 ml Balance -172 ml -1300 ml 712 ml -600 ml Intake Oral 0 ml 0 ml IV Total 8 ml Tube Feeding 560 ml 912 ml Tube Irrigant 60 ml Other 100 ml Output Urine Total 800 ml 1000 ml 200 ml 600 ml Stool Total 300 ml 100 ml Result Diagram: 10/15/16 0450 10/15/16 0450 Imaging Last Impressions Abdomen X-Ray 10/10/16 0000 Signed Impressions: Service Date/Time: Monday, October 10, 2016 13:59 - CONCLUSION: 1. Normal bowel gas pattern. 2. Aortic endograft. Jace Mason Jr., MD Chest X-Ray 10/07/16 0600 Signed Impressions: Service Date/Time: Friday, October 07, 2016 03:43 - CONCLUSION: The previously noted left lung infiltrate has resolved. No definite new infiltrates are seen. Yoni Guaman MD Procedures No procedures performed. Other Results Laboratory Tests Test 10/15/16 10/15/16 10/19/16 04:50 22:45 05:51 White Blood Count 5.7 TH/MM3 Red Blood Count 2.36 MIL/MM3 Hemoglobin 8.6 GM/DL Hematocrit 23.7 % Mean Corpuscular Volume 100.8 FL Mean Corpuscular Hemoglobin 36.7 PG Mean Corpuscular Hemoglobin 36.4 % Concent Red Cell Distribution Width 19.5 % Platelet Count 223 TH/MM3 Mean Platelet Volume 7.8 FL Neutrophils (%) (Auto) 63.8 % Lymphocytes (%) (Auto) 17.6 % Monocytes (%) (Auto) 10.1 % Eosinophils (%) (Auto) 7.7 % Basophils (%) (Auto) 0.8 % Neutrophils # (Auto) 3.6 TH/MM3 Lymphocytes # (Auto) 1.0 TH/MM3 Monocytes # (Auto) 0.6 TH/MM3 Eosinophils # (Auto) 0.4 TH/MM3 Basophils # (Auto) 0.0 TH/MM3 CBC Comment AUTO DIFF Differential Comment AUTO DIFF CONFIRMED Rouleau PRESENT Sodium Level 137 MEQ/L Potassium Level 3.8 MEQ/L Chloride Level 98 MEQ/L Carbon Dioxide Level 32.0 MEQ/L Anion Gap 7 MEQ/L Blood Urea Nitrogen 22 MG/DL Creatinine 0.74 MG/DL Estimat Glomerular Filtration 124 ML/MIN Rate Random Glucose 140 MG/DL Calcium Level 9.7 MG/DL Phosphorus Level 2.9 MG/DL Magnesium Level 2.2 MG/DL Total Bilirubin 0.2 MG/DL Aspartate Amino Transf 57 U/L (AST/SGOT) Alanine Aminotransferase 64 U/L (ALT/SGPT) Alkaline Phosphatase 132 U/L Total Protein 8.7 GM/DL Albumin 2.1 GM/DL Stool C. difficile Toxin (PCR) NEGATIVE Stl C. difficile Toxin PRESUMPTIVE Epiderm 027 NEGATIVE Phenytoin (Dilantin) Level 18.6 MCG/ML Objective Remarks GA: patient nonverbal, trach in place, more calm today, no jerking movements of his face or arm. SKIN: Sacral decubitus with wound packing. EYES: Left-sided ptosis No scleral icterus. No injection or drainage. Eyes deviated to the right. ENT: Nose without bleeding, purulent drainage or septal hematoma Airway patent. NECK: Trachea midline. No JVD. Tracheostomy in place CARDIOVASCULAR: Regular rate and rhythm without murmurs, gallops, or rubs. RESPIRATORY: Bilateral rhonchi, no wheezing. No crackles auscultated. GASTROINTESTINAL: Abdomen soft, non-tender, nondistended. No guarding. No suprapubic tenderness. PEG in place, no erythema or purulent discharge observed. MUSCULOSKELETAL: Bilateral lower extremity contracture. Atrophic. NEUROLOGICAL: Eyes closed. Does not follow any commands. Bilateral upper and lower extremity contractures with muscle atrophy. No jerking movements of his face or arm. Medications and IVs Current Medications Medications (Trade) Dose Ordered Sig/Harry Route Start Time Stop Time Status Last Admin (NS Flush) 2 ml UNSCH PRN IV FLUSH 09/20/16 22:30 10/13/16 09:54 (NS Flush) 2 ml BID IV FLUSH 09/21/16 09:00 10/18/16 22:00 (Narcan Inj) 0.4 mg UNSCH PRN IV 09/20/16 22:30 (Tylenol) 650 mg Q6HR PRN PEG 09/21/16 01:30 09/26/16 17:50 (Aspirin Chew) 81 mg DAILY PEG 09/21/16 09:00 10/18/16 09:28 (Dulcolax Supp) 10 mg DAILY PRN RECTAL 09/21/16 01:30 10/08/16 12:26 (Ativan) 2 mg Q8HR PRN PEG 09/21/16 01:30 (Zofran Inj) 4 mg Q4HR PRN IV PUSH 09/21/16 01:30 (D50w (Vial) Inj) 25 ml UNSCH PRN IV PUSH 09/21/16 01:30 (Glucagon Inj) 1 mg UNSCH PRN OTHER 09/21/16 01:30 (Protonix Inj) 40 mg DAILY IV PUSH 09/21/16 10:01 10/18/16 09:28 (Robinul) 1 mg TID PEG 09/21/16 13:00 10/18/16 17:29 (Heparin Inj) 5,000 units Q8HR SQ 09/21/16 14:00 10/19/16 04:35 (Reglan Inj) 5 mg Q8HR IV PUSH 09/21/16 14:00 10/19/16 04:34 (NS Flush) See Protocol DAILY IV FLUSH 09/23/16 09:00 10/18/16 09:00 (NS Flush) See Protocol UNSCH PRN IV FLUSH 09/22/16 13:45 10/13/16 09:54 (Heparin Central Flush) See Protocol DAILY IV FLUSH 09/23/16 09:00 10/18/16 09:29 (Heparin Central Flush) See Protocol UNSCH PRN IV FLUSH 09/22/16 13:45 Sodium Chloride UNSCH PRN IV FLUSH 09/22/16 13:45 10/13/16 09:54 (NS 1000 ml Inj) 1,000 ml @ 0 mls/hr Q0M IV 09/22/16 17:30 10/07/16 16:25 Carvedilol 12.5 mg 12.5 mg BID PEG 09/24/16 15:00 10/18/16 22:01 (Diflucan 200 Mg Premix Bag) 100 ml @ 100 mls/hr Q24H IV 10/05/16 16:00 10/18/16 16:42 Miscellaneous Information Patient in critical care unit? Ass... Q361D .XX 10/07/16 08:30 (Levsin Liq) 0.125 mg Q4H PRN PO 10/09/16 18:15 10/18/16 22:18 (Sodium Chloride) 1 gm BID@09,18 PO 10/12/16 18:00 10/18/16 17:29 (Mark Powder) 1 pack BID G-TUBE 10/13/16 21:00 10/18/16 22:04 (Ferrous Sulfate Liq) 300 mg DAILY PO 10/16/16 14:30 10/18/16 09:28 (Prinivil) 10 mg DAILY PEG 10/17/16 09:00 10/18/16 09:28 (Dilantin Inj) 100 mg Q8HR IV 10/18/16 06:00 10/19/16 04:34 A/P Assessment and Plan [id number] respiratory failure Status post tracheostomy since 2009. 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 Tracheal stent occlusion with clots and debris on 07/01/16 status post revision. 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 History of pseudomonas and stenotrophomonas lower respiratory tract infection from his bronchoscopy 07/04/16. Tracheal stent dislodgment status post removal of the fractured stent and placement of new stent on 07/11/16, stent revision on 07/17/16. New stent placement on 08/03. Transferred to the ICU for hypoxemia. S/p antibiotics. - Continue with oxygen keep sat >92%. - Bronchodilators, pulm toilet, trach care. Levsin and glycopyrrolate as need. - 10/06 T-piece trials initiated. Tolerating. - follow up with pulmonology. Seizure disorder/ Severe Anoxic encephalopathy - Negative MRI studies. Neurology consult appreciated. EEG showing PLEDs, no seizure activity. Unclear what neurologic baseline is since patient had 2 cardiac arrests over at [facility]. - Patient initially on Depakote and Keppra with the patient's daughter refusing these medications, these medications were discontinued by the miner. - Neurology reconsulted for facial twitching noted 10/14/16 - Neurology recommendations - neurochecks q 4 hrs, Ativan as needed for seizures more than 3 minutes. - Noted continued to have facial twitching and right upper arm jerking movement, continue ativan. EEG reviewed with aseizure activity. Reconsult neurology, seen by Dr Carter appreciate recommendations. -Loaded with Dilantin , 1500mg IV -Maintenance dose of Dilantin 100mg Q8h, starting 10/18/2016 at 01:00 -Obtain Dilantin level 10/19/2016 on 13:00 -Seizure precautions -Ativan 2mg for seizures lasting > 3 minutes Nutritional Support S/P percutaneous endoscopic gastrostomy (PEG) tube placement. - On tube feeds via PEG tube-Jevity 1.5@60ml/hr and tolerating them well. - Monitor. Increased risk for aspiration. Cardiac arrest History Patient has history of cardiac arrest on August 13 and . Palliative care consult appreciated. - On Coreg 12.5mg BID, Lisinopril 10mg daily, ASA 81 mg daily. - Palliative care following - they spoke with daughter and plan is for patient to go home with [facility] arrangements - Continue telemetry. 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 - continue cardiac regimen. Anemia, macrocytic Hgb not far from baseline. Iron studies noted. B12 and folic acid levels elevated. Likely anemia of chronic disease. - check Hemoccult. - We'll start iron supplementation, anemia of chronic disease Diabetes mellitus type 2 Last A1c in our system was 5.3%. - Diabetes is diet-controlled with blood sugars stable. There is no need for regular Accu-Cheks and to cover with supplemental insulin scale. - monitor BMP as needed. Abdominal distention Noted on exam 10/10/16. KUB unremarkable. - Bowel regimen. - Monitor. HTN Hypotension episode - resolved. - On Coreg 12.5 mg twice a day, decrease lisinopril to 5 mg daily with hold parameters - Monitor BP trend GI prophylaxis- On Protonix 40mg daily DVT prophylaxis- Heparin Sq Was not discharged due to not safe discharge at this time his Daughter will come back october 22. Cristian Jc MD October 19, 2016 07:58
[2016-10-19] MEDS: JUVEN POWDER 1 PACK G-TUBE SCH ×2 (09:16→21:00)
[2016-10-19] MEDS: SODIUM CHLORIDE 0.9% FLUSH 10 ML FLUSH IV FLUSH SCH ×3 (09:17→22:42)
[2016-10-19] MEDS: HYOSCYAMINE SOLN 0.125 MG/ML 15 ML BTL PO PRN ×3 (09:17→22:42)
[2016-10-19] MEDS: LISINOPRIL 10 MG TAB PEG SCH (09:19)
[2016-10-19] MEDS: SODIUM CHLORIDE 1 GRAM TAB PO SCH ×2 (09:19→18:19)
[2016-10-19] MEDS: CARVEDILOL 12.5 MG TAB PEG SCH ×2 (09:20→22:41)
[2016-10-19] MEDS: GLYCOPYRROLATE 1 MG TAB PEG SCH ×3 (09:20→18:19)
[2016-10-19] MEDS: ASPIRIN 81 MG CHEW TAB PEG SCH (09:20)
[2016-10-19] MEDS: PANTOPRAZOLE SODIUM 40 MG VIAL IV PUSH SCH (09:23)
[2016-10-19] MEDS: FERROUS SULFATE 300 MG /5ML UDC PO SCH (09:23)
[2016-10-19] MEDS: TAMSULOSIN HCL 0.4 MG CAP PO SCH (15:51)
[2016-10-19] MEDS: RESP: ALBUTEROL 2.5 MG/IPRATROPIUM 0.5 MG NEB (PRN) NEB (16:54)
[2016-10-19] MEDS: FLUCONAZOLE 200 MG PREMIX BAG 100 ML IV SCH (17:37)
--- NOTE | 2016-10-19 18:44 | HHI.PR ---
Subjective Remarks 80 YOAA male multiple co morbid condition VDRF,Trach, tracheal stent no fever Tolerates Trach collar Trach secretion decreased Tolerates TF No new complaint Objective Vital Signs Vital Signs Date Time Temp Pulse Resp B/P Pulse Ox O2 Delivery O2 Flow Rate FiO2 10/19/16 16:00 97.3 73 18 135/79 97 10/19/16 12:31 94 T-piece 6.00 10/19/16 12:00 97.2 76 22 152/86 100 10/19/16 08:10 T-Piece 7.00 28 Humidified 10/19/16 08:10 85 10/19/16 08:00 97.1 84 22 149/84 90 10/19/16 04:00 98.1 85 24 119/79 98 10/19/16 00:00 97.4 75 24 139/74 98 10/18/16 20:07 97.8 81 19 174/93 94 10/18/16 20:00 Trach Collar 6.00 28 T-Piece Humidified 10/18/16 20:00 86 I/O 10/18/16 10/18/16 10/18/16 10/19/16 10/19/16 10/19/16 07:00 15:00 23:00 07:00 15:00 23:00 Intake Total 628 ml 0 ml 1012 ml 1058 ml Output Total 800 ml 1300 ml 300 ml 600 ml 300 ml Balance -172 ml -1300 ml 712 ml -600 ml 758 ml Intake Oral 0 ml 0 ml 0 ml IV Total 8 ml 2 ml Tube Feeding 560 ml 912 ml 806 ml Tube Irrigant 60 ml 250 ml Other 100 ml Output Urine Total 800 ml 1000 ml 200 ml 600 ml Stool Total 300 ml 100 ml 300 ml # Voids 1 Result Diagram: 10/15/16 0450 10/15/16 0450 Objective Remarks GENERAL: Elderly male, on Vent SKIN: Warm and dry. HEAD: Normocephalic. EYES: No scleral icterus. No injection or drainage. NECK: Supple, trachea midline. No JVD or lymphadenopathy. Has trach CARDIOVASCULAR: Regular rate and rhythm without murmurs, gallops, or rubs. RESPIRATORY: Breath sounds equal bilaterally. No accessory muscle use. GASTROINTESTINAL: Abdomen soft, non-tender, nondistended. PEG tube in place MUSCULOSKELETAL: No cyanosis, or edema. BACK: Nontender without obvious deformity. No CVA tenderness. A/P Assessment and Plan VDRF Trach Tracheal stent Sz disorder S/P AAA repair S/P cardiac arrest PLAN: Trach care Aerosol nebs TF Cont trach collar Daron Rock MD October 19, 2016 18:44
[2016-10-20] VITALS (7 sets, daily range): BP systolic 99–137; BP diastolic 58–72; PULSE 64–79; RESP 18–22; TEMP 97.2–98.2; O2SAT 92–100
[2016-10-20] MEDS: PHENYTOIN INJ 100 MG/2 ML VIAL IV SCH ×3 (06:07→21:38)
[2016-10-20] MEDS: HEPARIN SODIUM - SQ 10,000 UNITS/ML VIAL SQ SCH ×3 (06:07→21:37)
[2016-10-20] MEDS: METOCLOPRAMIDE HCL 10 MG/2 ML VIAL IV PUSH SCH ×3 (06:07→21:37)
[2016-10-20] MEDS: LISINOPRIL 10 MG TAB PEG SCH (09:00)
[2016-10-20] MEDS: RESP: ALBUTEROL 2.5 MG/IPRATROPIUM 0.5 MG NEB (PRN) NEB ×2 (09:11→14:27)
[2016-10-20] MEDS: FERROUS SULFATE 300 MG /5ML UDC PO SCH (09:24)
[2016-10-20] MEDS: ASPIRIN 81 MG CHEW TAB PEG SCH (09:25)
[2016-10-20] MEDS: SODIUM CHLORIDE 1 GRAM TAB PO SCH ×2 (09:25→18:01)
[2016-10-20] MEDS: CARVEDILOL 12.5 MG TAB PEG SCH ×2 (09:25→21:36)
[2016-10-20] MEDS: GLYCOPYRROLATE 1 MG TAB PEG SCH ×3 (09:25→18:01)
[2016-10-20] MEDS: SODIUM CHLORIDE 0.9% FLUSH 10 ML FLUSH IV FLUSH SCH ×3 (09:27→21:35)
[2016-10-20] MEDS: JUVEN POWDER 1 PACK G-TUBE SCH ×2 (09:28→21:00)
[2016-10-20] MEDS: PANTOPRAZOLE SODIUM 40 MG VIAL IV PUSH SCH (09:29)
[2016-10-20] MEDS: HYOSCYAMINE SOLN 0.125 MG/ML 15 ML BTL PO PRN ×3 (09:29→21:39)
--- NOTE | 2016-10-20 10:19 | HHI.PR ---
Subjective Remarks Mr. Cesar is a 80-year -[place] male who was transferred from [facility]. He was initially admitted to the hospital on July 01. At that time he had a problem with the tracheostomy tube. He has a history of tracheostomy and he has a tracheal stent. He had a problem with the stent and he was sent to [facility] where he had multiple procedures done. The trach was revised and clots were removed. While he was over there he had multiple bronchoscopies, cardiac arrest x2 and multiple infections. Now he is sent over to [facility] for further management. 10/19: Patient seen in his bedroom in the presence of nurse Miss Golden, NO complaint 10/20: Seen in her bedroom in the presence of nurse Miss Joseph no Nausea, vomit or diarrhea, continue supportive management in house, and followed by digital content specialist and Neurology specialist. Objective Vital Signs Date Time Temp Pulse Resp B/P Pulse Ox O2 Delivery O2 Flow Rate FiO2 10/20/16 09:11 94 T-piece 35 10/20/16 08:00 98.2 79 20 100/67 100 10/20/16 04:00 97.4 64 18 137/63 97 10/20/16 00:00 97.2 70 22 121/63 100 10/19/16 21:35 96 T-piece 28 10/19/16 21:19 T-Piece 7.00 28 10/19/16 20:50 97.4 74 26 146/81 97 10/19/16 20:17 77 10/19/16 16:00 97.3 73 18 135/79 97 10/19/16 12:31 94 T-piece 6.00 10/19/16 12:00 97.2 76 22 152/86 100 I/O 10/19/16 10/19/16 10/19/16 10/20/16 10/20/16 10/20/16 07:00 15:00 23:00 07:00 15:00 23:00 Intake Total 1058 ml 604 ml 2 ml Output Total 600 ml 300 ml 200 ml 600 ml Balance -600 ml 758 ml 404 ml -598 ml Intake Oral 0 ml 0 ml 0 ml IV Total 2 ml 4 ml 2 ml Tube Feeding 806 ml 600 ml Tube Irrigant 250 ml Output Urine Total 600 ml 200 ml 600 ml Stool Total 300 ml # Voids 1 # Bowel Movements 0 0 Imaging Last Impressions Abdomen X-Ray 10/10/16 0000 Signed Impressions: Service Date/Time: Monday, October 10, 2016 13:59 - CONCLUSION: 1. Normal bowel gas pattern. 2. Aortic endograft. Jace Mason Jr., MD Chest X-Ray 10/07/16 0600 Signed Impressions: Service Date/Time: Friday, October 07, 2016 03:43 - CONCLUSION: The previously noted left lung infiltrate has resolved. No definite new infiltrates are seen. Yoni Guaman MD Procedures No procedures performed. Other Results Laboratory Tests Test 10/19/16 05:51 Phenytoin (Dilantin) Level 18.6 MCG/ML Objective Remarks GA: patient nonverbal, trach in place, more calm today, no jerking movements of his face or arm. SKIN: Sacral decubitus with wound packing. EYES: Left-sided ptosis No scleral icterus. No injection or drainage. Eyes deviated to the right. ENT: Nose without bleeding, purulent drainage or septal hematoma Airway patent. NECK: Trachea midline. No JVD. Tracheostomy in place CARDIOVASCULAR: Regular rate and rhythm without murmurs, gallops, or rubs. RESPIRATORY: Bilateral rhonchi, no wheezing. No crackles auscultated. GASTROINTESTINAL: Abdomen soft, non-tender, nondistended. No guarding. No suprapubic tenderness. PEG in place, no erythema or purulent discharge observed. MUSCULOSKELETAL: Bilateral lower extremity contracture. Atrophic. NEUROLOGICAL: Eyes closed. Does not follow any commands. Bilateral upper and lower extremity contractures with muscle atrophy. No jerking movements of his face or arm. Medications and IVs Current Medications Medications (Trade) Dose Ordered Sig/Harry Route Start Time Stop Time Status Last Admin (NS Flush) 2 ml UNSCH PRN IV FLUSH 09/20/16 22:30 10/13/16 09:54 (NS Flush) 2 ml BID IV FLUSH 09/21/16 09:00 10/20/16 09:27 (Narcan Inj) 0.4 mg UNSCH PRN IV 09/20/16 22:30 (Tylenol) 650 mg Q6HR PRN PEG 09/21/16 01:30 09/26/16 17:50 (Aspirin Chew) 81 mg DAILY PEG 09/21/16 09:00 10/20/16 09:25 (Dulcolax Supp) 10 mg DAILY PRN RECTAL 09/21/16 01:30 10/08/16 12:26 (Ativan) 2 mg Q8HR PRN PEG 09/21/16 01:30 (Zofran Inj) 4 mg Q4HR PRN IV PUSH 09/21/16 01:30 (D50w (Vial) Inj) 25 ml UNSCH PRN IV PUSH 09/21/16 01:30 (Glucagon Inj) 1 mg UNSCH PRN OTHER 09/21/16 01:30 (Protonix Inj) 40 mg DAILY IV PUSH 09/21/16 10:01 10/20/16 09:29 (Robinul) 1 mg TID PEG 09/21/16 13:00 10/20/16 09:25 (Heparin Inj) 5,000 units Q8HR SQ 09/21/16 14:00 10/20/16 06:07 (Reglan Inj) 5 mg Q8HR IV PUSH 09/21/16 14:00 10/20/16 06:07 (NS Flush) See Protocol DAILY IV FLUSH 09/23/16 09:00 10/20/16 09:27 (NS Flush) See Protocol UNSCH PRN IV FLUSH 09/22/16 13:45 10/13/16 09:54 (Heparin Central Flush) See Protocol DAILY IV FLUSH 09/23/16 09:00 10/20/16 09:28 (Heparin Central Flush) See Protocol UNSCH PRN IV FLUSH 09/22/16 13:45 Sodium Chloride UNSCH PRN IV FLUSH 09/22/16 13:45 10/13/16 09:54 (NS 1000 ml Inj) 1,000 ml @ 0 mls/hr Q0M IV 09/22/16 17:30 10/07/16 16:25 Carvedilol 12.5 mg 12.5 mg BID PEG 09/24/16 15:00 10/20/16 09:25 (Diflucan 200 Mg Premix Bag) 100 ml @ 100 mls/hr Q24H IV 10/05/16 16:00 10/19/16 17:37 Miscellaneous Information Patient in critical care unit? Ass... Q361D .XX 10/07/16 08:30 (Levsin Liq) 0.125 mg Q4H PRN PO 10/09/16 18:15 10/20/16 09:29 (Sodium Chloride) 1 gm BID@09,18 PO 10/12/16 18:00 10/20/16 09:25 (Mark Powder) 1 pack BID G-TUBE 10/13/16 21:00 10/20/16 09:28 (Ferrous Sulfate Liq) 300 mg DAILY PO 10/16/16 14:30 10/20/16 09:24 (Prinivil) 10 mg DAILY PEG 10/17/16 09:00 10/19/16 09:19 (Dilantin Inj) 100 mg Q8HR IV 10/18/16 06:00 10/20/16 06:07 A/P Assessment and Plan [id number] respiratory failure Status post tracheostomy since 2009. 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 Tracheal stent occlusion with clots and debris on 07/01/16 status post revision. 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 History of pseudomonas and Stenotrophomonas lower respiratory tract infection from his bronchoscopy 07/04/16. Tracheal stent dislodgment status post removal of the fractured stent and placement of new stent on 07/11/16, stent revision on 07/17/16. New stent placement on 08/03. Transferred to the ICU for hypoxemia. S/p antibiotics. - Continue with oxygen keep sat >92%. - Bronchodilators, pulm toilet, trach care. Levsin and glycopyrrolate as need. - 5/12 T-piece trials initiated. Tolerating. - follow up with pulmonology. Seizure disorder/ Severe Anoxic encephalopathy - Negative MRI studies. Neurology consult appreciated. EEG showing PLEDs, no seizure activity. Unclear what neurologic baseline is since patient had 2 cardiac arrests over at [facility]. - Patient initially on Depakote and Keppra with the patient's daughter refusing these medications, these medications were discontinued by the gear lapping machine operator. - Neurology reconsulted for facial twitching noted 10/14/16 - Neurology recommendations - neurochecks q 4 hrs, Ativan as needed for seizures more than 3 minutes. - Noted continued to have facial twitching and right upper arm jerking movement, continue ativan. EEG reviewed with aseizure activity. Reconsult neurology, seen by Dr Carter appreciate recommendations. -Loaded with Dilantin , 1500mg IV -Maintenance dose of Dilantin 100mg Q8h, starting 10/18/2016 at 01:00 -Obtain Dilantin level 10/19/2016 on 13:00 -Seizure precautions -Ativan 2mg for seizures lasting > 3 minutes Nutritional Support S/P percutaneous endoscopic gastrostomy (PEG) tube placement. - On tube feeds via PEG tube-Jevity 1.5@60ml/hr and tolerating them well. - Monitor. Increased risk for aspiration. Cardiac arrest History Patient has history of cardiac arrest on August 13 and . Palliative care consult appreciated. - On Coreg 12.5mg BID, Lisinopril 10mg daily, ASA 81 mg daily. - Palliative care following - they spoke with daughter and plan is for patient to go home with [facility] arrangements - Continue telemetry. 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 - continue cardiac regimen. Anemia, macrocytic Hgb not far from baseline. Iron studies noted. B12 and folic acid levels elevated. Likely anemia of chronic disease. - check Hemoccult. - We'll start iron supplementation, anemia of chronic disease Diabetes mellitus type 2 Last A1c in our system was 5.3%. - Diabetes is diet-controlled with blood sugars stable. There is no need for regular Accu-Cheks and to cover with supplemental insulin scale. - monitor BMP as needed. Abdominal distention Noted on exam 10/10/16. KUB unremarkable. - Bowel regimen. - Monitor. HTN Hypotension episode - resolved. - On Coreg 12.5 mg twice a day, decrease lisinopril to 5 mg daily with hold parameters - Monitor BP trend GI prophylaxis- On Protonix 40mg daily DVT prophylaxis- Heparin Sq Poor short term prognosis. Discharge Planning Was not discharged due to not safe discharge at this time his Daughter will come back october 22. Cristian Jc MD October 20, 2016 10:19
[2016-10-20] MEDS: TAMSULOSIN HCL 0.4 MG CAP PO SCH (16:00)
--- NOTE | 2016-10-20 17:07 | HHI.PR ---
Subjective Remarks 80 YOAA male multiple co morbid condition VDRF,Trach, tracheal stent no fever Tolerates Trach collar Trach secretion decreased Tolerates TF On Dilantin. Objective Vital Signs Vital Signs Date Time Temp Pulse Resp B/P Pulse Ox O2 Delivery O2 Flow Rate FiO2 10/20/16 09:11 94 T-piece 35 10/20/16 08:25 T-Piece 6.00 35 Humidified 10/20/16 08:00 74 10/20/16 08:00 98.2 79 20 100/67 100 10/20/16 04:00 97.4 64 18 137/63 97 10/20/16 00:00 97.2 70 22 121/63 100 10/19/16 21:35 96 T-piece 28 10/19/16 21:19 T-Piece 7.00 28 10/19/16 20:50 97.4 74 26 146/81 97 10/19/16 20:17 77 I/O 10/19/16 10/19/16 10/19/16 10/20/16 10/20/16 10/20/16 07:00 15:00 23:00 07:00 15:00 23:00 Intake Total 1058 ml 604 ml 2 ml Output Total 600 ml 300 ml 200 ml 600 ml Balance -600 ml 758 ml 404 ml -598 ml Intake Oral 0 ml 0 ml 0 ml IV Total 2 ml 4 ml 2 ml Tube Feeding 806 ml 600 ml Tube Irrigant 250 ml Output Urine Total 600 ml 200 ml 600 ml Stool Total 300 ml # Voids 1 # Bowel Movements 0 0 Objective Remarks GENERAL: Elderly male, on Vent SKIN: Warm and dry. HEAD: Normocephalic. EYES: No scleral icterus. No injection or drainage. NECK: Supple, trachea midline. No JVD or lymphadenopathy. Has trach CARDIOVASCULAR: Regular rate and rhythm without murmurs, gallops, or rubs. RESPIRATORY: Breath sounds equal bilaterally. No accessory muscle use. GASTROINTESTINAL: Abdomen soft, non-tender, nondistended. PEG tube in place MUSCULOSKELETAL: No cyanosis, or edema. BACK: Nontender without obvious deformity. No CVA tenderness. A/P Assessment and Plan VDRF Trach Tracheal stent Sz disorder S/P AAA repair S/P cardiac arrest PLAN: Trach care Aerosol nebs TF Cont trach collar Daron Rock MD October 20, 2016 17:07
[2016-10-20] MEDS: FLUCONAZOLE 200 MG PREMIX BAG 100 ML IV SCH (18:01)
--- NOTE | 2016-10-20 20:27 | HHI.PR ---
Review/Management Diagnosis Chronic encephalopathy Clinical seizures EEG with evidence of epileptogenicity Plan Neuro checks Dilantin 100mg Q8h Obtain Dilantin level dailyx5 Seizure precautions Ativan 2mg for seizures lasting > 3 minutes DVT prophylaxis Supportive care Diagnosis/Plan: Subjective Subjective Comments No acute events reported No headache No chest pain No dyspnea Active Medications Current Medications Medications (Trade) Dose Ordered Sig/Harry Route Start Time Stop Time Status Last Admin (NS Flush) 2 ml UNSCH PRN IV FLUSH 09/20/16 22:30 10/13/16 09:54 (NS Flush) 2 ml BID IV FLUSH 09/21/16 09:00 10/20/16 09:27 (Narcan Inj) 0.4 mg UNSCH PRN IV 09/20/16 22:30 (Tylenol) 650 mg Q6HR PRN PEG 09/21/16 01:30 09/26/16 17:50 (Aspirin Chew) 81 mg DAILY PEG 09/21/16 09:00 10/20/16 09:25 (Dulcolax Supp) 10 mg DAILY PRN RECTAL 09/21/16 01:30 10/08/16 12:26 (Ativan) 2 mg Q8HR PRN PEG 09/21/16 01:30 (Zofran Inj) 4 mg Q4HR PRN IV PUSH 09/21/16 01:30 (D50w (Vial) Inj) 25 ml UNSCH PRN IV PUSH 09/21/16 01:30 (Glucagon Inj) 1 mg UNSCH PRN OTHER 09/21/16 01:30 (Protonix Inj) 40 mg DAILY IV PUSH 09/21/16 10:01 10/20/16 09:29 (Robinul) 1 mg TID PEG 09/21/16 13:00 10/20/16 18:01 (Heparin Inj) 5,000 units Q8HR SQ 09/21/16 14:00 10/20/16 14:02 (Reglan Inj) 5 mg Q8HR IV PUSH 09/21/16 14:00 10/20/16 14:02 (NS Flush) See Protocol DAILY IV FLUSH 09/23/16 09:00 10/20/16 09:27 (NS Flush) See Protocol UNSCH PRN IV FLUSH 09/22/16 13:45 10/13/16 09:54 (Heparin Central Flush) See Protocol DAILY IV FLUSH 09/23/16 09:00 10/20/16 09:28 (Heparin Central Flush) See Protocol UNSCH PRN IV FLUSH 09/22/16 13:45 Sodium Chloride UNSCH PRN IV FLUSH 09/22/16 13:45 10/13/16 09:54 (NS 1000 ml Inj) 1,000 ml @ 0 mls/hr Q0M IV 09/22/16 17:30 10/07/16 16:25 Carvedilol 12.5 mg 12.5 mg BID PEG 09/24/16 15:00 10/20/16 09:25 (Diflucan 200 Mg Premix Bag) 100 ml @ 100 mls/hr Q24H IV 10/05/16 16:00 10/20/16 18:01 Miscellaneous Information Patient in critical care unit? Ass... 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) Codeine (Verified Adverse Reaction, Unknown, Anaphylaxis, 06/30/16) Exam I&O / VS 10/19/16 10/19/16 10/20/16 15:00 23:00 07:00 Intake Total 1058 ml 604 ml 2 ml Output Total 300 ml 200 ml 600 ml Balance 758 ml 404 ml -598 ml Intake Oral 0 ml 0 ml 0 ml IV Total 2 ml 4 ml 2 ml Tube Feeding 806 ml 600 ml Tube Irrigant 250 ml Output Urine Total 200 ml 600 ml Stool Total 300 ml # Voids 1 # Bowel Movements 0 0 Vital Signs Date Time Temp Pulse Resp B/P Pulse Ox O2 Delivery O2 Flow Rate FiO2 10/20/16 16:00 97.9 76 20 99/58 94 10/20/16 12:00 97.8 73 20 113/68 92 10/20/16 09:11 94 T-piece 35 10/20/16 08:25 T-Piece 6.00 35 Humidified 10/20/16 08:00 74 10/20/16 08:00 98.2 79 20 100/67 100 10/20/16 04:00 97.4 64 18 137/63 97 10/20/16 00:00 97.2 70 22 121/63 100 10/19/16 21:35 96 T-piece 28 10/19/16 21:19 T-Piece 7.00 28 10/19/16 20:50 97.4 74 26 146/81 97 Exam Comments GENERAL: Nonverbal, noncommunicative, tracheostomy dependent. PEG dependent. HEENT: Atraumatic, normocephalic. Tracheostomy in place. NECK: Tracheostomy in place. CARDIOVASCULAR: Regular rate and rhythm. RESPIRATORY: Decreased air entry bilaterally. GASTROINTESTINAL: Soft abdomen. MUSCULOSKELETAL: Contractures of the bilateral lower extremities. NEUROLOGIC: Nonverbal, does not respond to either verbal or painful stimuli. No spontaneous eye opening. Pupils 2 mm, sluggish reacting to light. No gaze deviation. No facial twitches noted during the encounter. Reflexes 1+ bilateral and symmetrical. No signs of meningeal irritation. Plantars are bilateral mute. Objective Micro and Labs Date/Time Procedure Status Source Growth 10/16/16 18:25 Stool Occult Blood (GALLO) - Final Complete Stool Stool HEMOCCULT NEGATIVE Radha Carter MD October 20, 2016 20:27
[2016-10-21] VITALS (7 sets, daily range): BP systolic 102–135; BP diastolic 58–80; PULSE 69–78; RESP 16–20; TEMP 97.2–97.9; O2SAT 92–100
[2016-10-21] MEDS: PHENYTOIN INJ 100 MG/2 ML VIAL IV SCH ×3 (05:38→23:32)
[2016-10-21] MEDS: HEPARIN SODIUM - SQ 10,000 UNITS/ML VIAL SQ SCH ×3 (05:38→23:34)
[2016-10-21] MEDS: METOCLOPRAMIDE HCL 10 MG/2 ML VIAL IV PUSH SCH ×3 (05:39→23:34)
[2016-10-21] MEDS: JUVEN POWDER 1 PACK G-TUBE SCH ×2 (10:32→21:00)
[2016-10-21] MEDS: SODIUM CHLORIDE 0.9% FLUSH 10 ML FLUSH IV FLUSH SCH ×3 (10:37→23:30)
[2016-10-21] MEDS: PANTOPRAZOLE SODIUM 40 MG VIAL IV PUSH SCH (10:49)
[2016-10-21] MEDS: ASPIRIN 81 MG CHEW TAB PEG SCH (10:49)
[2016-10-21] MEDS: LISINOPRIL 10 MG TAB PEG SCH (10:50)
[2016-10-21] MEDS: CARVEDILOL 12.5 MG TAB PEG SCH ×2 (10:50→23:31)
[2016-10-21] MEDS: FERROUS SULFATE 300 MG /5ML UDC PO SCH (10:51)
[2016-10-21] MEDS: GLYCOPYRROLATE 1 MG TAB PEG SCH ×3 (10:51→17:46)
[2016-10-21] MEDS: SODIUM CHLORIDE 1 GRAM TAB PO SCH ×2 (10:51→17:46)
[2016-10-21] MEDS: HYOSCYAMINE SOLN 0.125 MG/ML 15 ML BTL PO PRN ×2 (12:00→17:48)
[2016-10-21] MEDS: TAMSULOSIN HCL 0.4 MG CAP PO SCH (16:00)
--- NOTE | 2016-10-21 16:18 | HHI.PR ---
Subjective Remarks 80 YOAA male multiple co morbid condition VDRF,Trach, tracheal stent no fever Tolerates Trach collar Tolerates TF On Dilantin. has lot of trach secretion Objective Vital Signs Vital Signs Date Time Temp Pulse Resp B/P Pulse Ox O2 Delivery O2 Flow Rate FiO2 10/21/16 15:54 95 T-Piece 7.00 28 10/21/16 12:00 97.9 78 16 102/58 97 10/21/16 12:00 97.2 73 16 107/61 95 10/21/16 10:55 92 Aerosol Mask 40 10/21/16 08:00 97.2 71 16 127/71 93 10/21/16 06:08 T-Piece 7.00 10/21/16 04:00 97.7 77 20 135/80 100 10/21/16 02:00 T-Piece 7.00 10/21/16 00:00 97.3 72 18 128/74 94 10/20/16 21:20 T-Piece 7.00 10/20/16 20:00 97.6 70 18 118/72 99 10/20/16 20:00 72 I/O 10/20/16 10/20/16 10/20/16 10/21/16 10/21/16 10/21/16 07:00 15:00 23:00 07:00 15:00 23:00 Intake Total 2 ml 1341 ml 730 ml 604 ml Output Total 600 ml 900 ml 400 ml 600 ml Balance -598 ml 441 ml 330 ml 4 ml Intake Oral 0 ml 0 ml IV Total 2 ml 12 ml 108 ml 4 ml Tube Feeding 1079 ml 622 ml 600 ml Other 250 ml Output Urine Total 600 ml 400 ml 400 ml 600 ml Stool Total 500 ml # Bowel Movements 0 Objective Remarks GENERAL: Elderly male, on Vent SKIN: Warm and dry. HEAD: Normocephalic. EYES: No scleral icterus. No injection or drainage. NECK: Supple, trachea midline. No JVD or lymphadenopathy. Has trach CARDIOVASCULAR: Regular rate and rhythm without murmurs, gallops, or rubs. RESPIRATORY: Breath sounds equal bilaterally. No accessory muscle use. GASTROINTESTINAL: Abdomen soft, non-tender, nondistended. PEG tube in place MUSCULOSKELETAL: No cyanosis, or edema. BACK: Nontender without obvious deformity. No CVA tenderness. A/P Assessment and Plan VDRF Trach Tracheal stent Sz disorder S/P AAA repair S/P cardiac arrest PLAN: Trach care Aerosol nebs TF Cont trach collar Cont Daron Lares MD October 21, 2016 16:18
[2016-10-21] MEDS: FLUCONAZOLE 200 MG PREMIX BAG 100 ML IV SCH (17:30)
--- NOTE | 2016-10-21 17:57 | HHI.PR ---
Subjective Remarks Mr. Cesar is a 80-year -[place] male who was transferred from [facility] [place]. He was initially admitted to the hospital on July 01. At that time he had a problem with the tracheostomy tube. He has a history of tracheostomy and he has a tracheal stent. He had a problem with the stent and he was sent to [facility] where he had multiple procedures done. The trach was revised and clots were removed. While he was over there he had multiple bronchoscopies, cardiac arrest x2 and multiple infections. Now he is sent over to [facility] for further management. 10/21: Seen in his bedroom in the presence of nurse Miss Redmond no nausea, vomit or diarhea continue supportive care. Objective Vital Signs Date Time Temp Pulse Resp B/P Pulse Ox O2 Delivery O2 Flow Rate FiO2 10/21/16 16:00 97.4 71 18 110/65 93 10/21/16 15:54 95 T-Piece 7.00 28 10/21/16 12:00 97.9 78 16 102/58 97 10/21/16 12:00 97.2 73 16 107/61 95 10/21/16 10:55 92 Aerosol Mask 40 10/21/16 08:00 97.2 71 16 127/71 93 10/21/16 06:08 T-Piece 7.00 10/21/16 04:00 97.7 77 20 135/80 100 10/21/16 02:00 T-Piece 7.00 10/21/16 00:00 97.3 72 18 128/74 94 10/20/16 21:20 T-Piece 7.00 10/20/16 20:00 97.6 70 18 118/72 99 10/20/16 20:00 72 I/O 10/20/16 10/20/16 10/20/16 10/21/16 10/21/16 10/21/16 07:00 15:00 23:00 07:00 15:00 23:00 Intake Total 2 ml 1341 ml 730 ml 604 ml 0 ml Output Total 600 ml 900 ml 400 ml 600 ml 550 ml Balance -598 ml 441 ml 330 ml 4 ml -550 ml Intake Oral 0 ml 0 ml 0 ml IV Total 2 ml 12 ml 108 ml 4 ml Tube Feeding 1079 ml 622 ml 600 ml Other 250 ml Output Urine Total 600 ml 400 ml 400 ml 600 ml 550 ml Stool Total 500 ml # Bowel Movements 0 Imaging Last Impressions Abdomen X-Ray 10/10/16 0000 Signed Impressions: Service Date/Time: Monday, October 10, 2016 13:59 - CONCLUSION: 1. Normal bowel gas pattern. 2. Aortic endograft. Jace Mason Jr., MD Chest X-Ray 10/07/16 0600 Signed Impressions: Service Date/Time: Friday, October 07, 2016 03:43 - CONCLUSION: The previously noted left lung infiltrate has resolved. No definite new infiltrates are seen. Yoni Guaman MD Procedures No procedures performed. Other Results Laboratory Tests Test 10/19/16 05:51 Phenytoin (Dilantin) Level 18.6 MCG/ML Objective Remarks GA: patient nonverbal, trach in place, more calm today, no jerking movements of his face or arm. SKIN: Sacral decubitus with wound packing. EYES: Left-sided ptosis No scleral icterus. No injection or drainage. Eyes deviated to the right. ENT: Nose without bleeding, purulent drainage or septal hematoma Airway patent. NECK: Trachea midline. No JVD. Tracheostomy in place CARDIOVASCULAR: Regular rate and rhythm without murmurs, gallops, or rubs. RESPIRATORY: Bilateral rhonchi, no wheezing. No crackles auscultated. GASTROINTESTINAL: Abdomen soft, non-tender, nondistended. No guarding. No suprapubic tenderness. PEG in place, no erythema or purulent discharge observed. MUSCULOSKELETAL: Bilateral lower extremity contracture. Atrophic. NEUROLOGICAL: Eyes closed. Does not follow any commands. Bilateral upper and lower extremity contractures with muscle atrophy. No jerking movements of his face or arm. Medications and IVs Current Medications Medications (Trade) Dose Ordered Sig/Harry Route Start Time Stop Time Status Last Admin (NS Flush) 2 ml UNSCH PRN IV FLUSH 09/20/16 22:30 10/13/16 09:54 (NS Flush) 2 ml BID IV FLUSH 09/21/16 09:00 10/21/16 10:37 (Narcan Inj) 0.4 mg UNSCH PRN IV 09/20/16 22:30 (Tylenol) 650 mg Q6HR PRN PEG 09/21/16 01:30 09/26/16 17:50 (Aspirin Chew) 81 mg DAILY PEG 09/21/16 09:00 10/21/16 10:49 (Dulcolax Supp) 10 mg DAILY PRN RECTAL 09/21/16 01:30 10/08/16 12:26 (Ativan) 2 mg Q8HR PRN PEG 09/21/16 01:30 (Zofran Inj) 4 mg Q4HR PRN IV PUSH 09/21/16 01:30 (D50w (Vial) Inj) 25 ml UNSCH PRN IV PUSH 09/21/16 01:30 (Glucagon Inj) 1 mg UNSCH PRN OTHER 09/21/16 01:30 (Protonix Inj) 40 mg DAILY IV PUSH 09/21/16 10:01 10/21/16 10:49 (Robinul) 1 mg TID PEG 09/21/16 13:00 10/21/16 17:46 (Heparin Inj) 5,000 units Q8HR SQ 09/21/16 14:00 10/21/16 17:31 (Reglan Inj) 5 mg Q8HR IV PUSH 09/21/16 14:00 10/21/16 17:33 (NS Flush) See Protocol DAILY IV FLUSH 09/23/16 09:00 10/21/16 10:49 (NS Flush) See Protocol UNSCH PRN IV FLUSH 09/22/16 13:45 10/13/16 09:54 (Heparin Central Flush) See Protocol DAILY IV FLUSH 09/23/16 09:00 10/21/16 10:32 (Heparin Central Flush) See Protocol UNSCH PRN IV FLUSH 09/22/16 13:45 Sodium Chloride UNSCH PRN IV FLUSH 09/22/16 13:45 10/13/16 09:54 (NS 1000 ml Inj) 1,000 ml @ 0 mls/hr Q0M IV 09/22/16 17:30 10/07/16 16:25 Carvedilol 12.5 mg 12.5 mg BID PEG 09/24/16 15:00 10/21/16 10:50 (Diflucan 200 Mg Premix Bag) 100 ml @ 100 mls/hr Q24H IV 10/05/16 16:00 10/21/16 17:30 Miscellaneous Information Patient in critical care unit? Ass... Q361D .XX 10/07/16 08:30 (Levsin Liq) 0.125 mg Q4H PRN PO 10/09/16 18:15 10/21/16 17:48 (Sodium Chloride) 1 gm BID@09,18 PO 10/12/16 18:00 10/21/16 17:46 (Mark Powder) 1 pack BID G-TUBE 10/13/16 21:00 10/21/16 10:32 (Ferrous Sulfate Liq) 300 mg DAILY PO 10/16/16 14:30 10/21/16 10:51 (Prinivil) 10 mg DAILY PEG 10/17/16 09:00 10/21/16 10:50 (Dilantin Inj) 100 mg Q8HR IV 10/18/16 06:00 10/21/16 17:31 A/P Assessment and Plan [id number] respiratory failure Status post tracheostomy since 2009. 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 Tracheal stent occlusion with clots and debris on 07/01/16 status post revision. 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 History of pseudomonas and stenotrophomonas lower respiratory tract infection from his bronchoscopy 07/04/16. Tracheal stent dislodgment status post removal of the fractured stent and placement of new stent on 07/11/16, stent revision on 07/17/16. New stent placement on 08/03. Transferred to the ICU for hypoxemia. S/p antibiotics. - Continue with oxygen keep sat >92%. - Bronchodilators, pulm toilet, trach care. Levsin and glycopyrrolate as need. - 5/12 T-piece trials initiated. Tolerating. - follow up with pulmonology. Seizure disorder/ Severe Anoxic encephalopathy - Negative MRI studies. Neurology consult appreciated. EEG showing PLEDs, no seizure activity. Unclear what neurologic baseline is since patient had 2 cardiac arrests over at [facility]. - Patient initially on Depakote and Keppra with the patient's daughter refusing these medications, these medications were discontinued by the records and tape recordings engineer. - Neurology reconsulted for facial twitching noted 10/14/16 - Neurology recommendations - neurochecks q 4 hrs, Ativan as needed for seizures more than 3 minutes. - Noted continued to have facial twitching and right upper arm jerking movement, continue ativan. EEG reviewed with aseizure activity. Reconsult neurology, seen by Dr Carter appreciate recommendations. -Loaded with Dilantin , 1500mg IV -Maintenance dose of Dilantin 100mg Q8h, starting 10/18/2016 at 01:00 -Obtain Dilantin level 10/19/2016 on 13:00 -Seizure precautions -Ativan 2mg for seizures lasting > 3 minutes Nutritional Support S/P percutaneous endoscopic gastrostomy (PEG) tube placement. - On tube feeds via PEG tube-Jevity 1.5@60ml/hr and tolerating them well. - Monitor. Increased risk for aspiration. Cardiac arrest History Patient has history of cardiac arrest on August 13 and . Palliative care consult appreciated. - On Coreg 12.5mg BID, Lisinopril 10mg daily, ASA 81 mg daily. - Palliative care following - they spoke with daughter and plan is for patient to go [facility] with [facility] - Continue telemetry. 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 - continue cardiac regimen. Anemia, macrocytic Hgb not far from baseline. Iron studies noted. B12 and folic acid levels elevated. Likely anemia of chronic disease. - check Hemoccult. - We'll start iron supplementation, anemia of chronic disease Diabetes mellitus type 2 Last A1c in our system was 5.3%. - Diabetes is diet-controlled with blood sugars stable. There is no need for regular Accu-Cheks and to cover with supplemental insulin scale. - monitor BMP as needed. Abdominal distention Noted on exam 10/10/16. KUB unremarkable. - Bowel regimen. - Monitor. HTN Hypotension episode - resolved. - On Coreg 12.5 mg twice a day, decrease lisinopril to 5 mg daily with hold parameters - Monitor BP trend GI prophylaxis- On Protonix 40mg daily DVT prophylaxis- Heparin Sq No changes to anterior assessment. Discharge Planning Was not discharged due to not safe discharge at this time his Daughter will come back october 22. Cristian Jc MD October 21, 2016 17:57
[2016-10-22] VITALS (9 sets, daily range): BP systolic 105–132; BP diastolic 58–76; PULSE 65–74; RESP 18–20; TEMP 97.3–97.6; O2SAT 93–100
[2016-10-22] MEDS: PHENYTOIN INJ 100 MG/2 ML VIAL IV SCH ×3 (05:36→21:09)
[2016-10-22] MEDS: HEPARIN SODIUM - SQ 10,000 UNITS/ML VIAL SQ SCH ×3 (05:37→21:10)
[2016-10-22] MEDS: METOCLOPRAMIDE HCL 10 MG/2 ML VIAL IV PUSH SCH ×3 (05:37→21:10)
--- NOTE | 2016-10-22 08:28 | HHI.PR ---
Subjective Remarks Mr. Cesar is a 80-year -[place] male who was transferred from [facility] [place]. He was initially admitted to the hospital on July 01. At that time he had a problem with the tracheostomy tube. He has a history of tracheostomy and he has a tracheal stent. He had a problem with the stent and he was sent to [facility] where he had multiple procedures done. The trach was revised and clots were removed. While he was over there he had multiple bronchoscopies, cardiac arrest x2 and multiple infections. Now he is sent over to [facility] for further management. 10/22: Discussed with nurse Miss Redmond no changes to anterior assessment, awaiting final recommendations by precision agriculture specialist for discharge probable next Sunday10/24/16 Objective Vital Signs Date Time Temp Pulse Resp B/P Pulse Ox O2 Delivery O2 Flow Rate FiO2 10/22/16 06:48 67 10/22/16 04:00 97.4 69 20 116/74 100 10/22/16 00:00 97.6 69 20 105/73 100 10/21/16 21:45 T-Piece 7.00 10/21/16 20:00 97.5 69 20 129/62 100 10/21/16 18:57 95 T-Piece 7.00 10/21/16 16:00 97.4 71 18 110/65 93 10/21/16 15:54 95 T-Piece 7.00 10/21/16 12:00 97.9 78 16 102/58 97 10/21/16 12:00 97.2 73 16 107/61 95 10/21/16 10:55 92 Aerosol Mask 40 I/O 10/21/16 10/21/16 10/21/16 10/22/16 10/22/16 10/22/16 07:00 15:00 23:00 07:00 15:00 23:00 Intake Total 604 ml 0 ml 1300 ml Output Total 600 ml 550 ml 250 ml 375 ml Balance 4 ml -550 ml 1050 ml -375 ml Intake Oral 0 ml IV Total 4 ml 100 ml Tube Feeding 600 ml 900 ml Other 300 ml Output Urine Total 600 ml 550 ml 250 ml 375 ml Imaging Last Impressions Abdomen X-Ray 10/10/16 0000 Signed Impressions: Service Date/Time: Monday, October 10, 2016 13:59 - CONCLUSION: 1. Normal bowel gas pattern. 2. Aortic endograft. Jace Mason Jr., MD Chest X-Ray 10/07/16 0600 Signed Impressions: Service Date/Time: Friday, October 07, 2016 03:43 - CONCLUSION: The previously noted left lung infiltrate has resolved. No definite new infiltrates are seen. Yoni Guaman MD Procedures No procedures performed. Other Results Laboratory Tests Test 10/19/16 05:51 Phenytoin (Dilantin) Level 18.6 MCG/ML Objective Remarks GA: patient nonverbal, trach in place, more calm today, no jerking movements of his face or arm. SKIN: Sacral decubitus with wound packing. EYES: Left-sided ptosis No scleral icterus. No injection or drainage. Eyes deviated to the right. ENT: Nose without bleeding, purulent drainage or septal hematoma Airway patent. NECK: Trachea midline. No JVD. Tracheostomy in place CARDIOVASCULAR: Regular rate and rhythm without murmurs, gallops, or rubs. RESPIRATORY: Bilateral rhonchi, no wheezing. No crackles auscultated. GASTROINTESTINAL: Abdomen soft, non-tender, nondistended. No guarding. No suprapubic tenderness. PEG in place, no erythema or purulent discharge observed. MUSCULOSKELETAL: Bilateral lower extremity contracture. Atrophic. NEUROLOGICAL: Eyes closed. Does not follow any commands. Bilateral upper and lower extremity contractures with muscle atrophy. No jerking movements of his face or arm. Medications and IVs Current Medications Medications (Trade) Dose Ordered Sig/Harry Route Start Time Stop Time Status Last Admin (NS Flush) 2 ml UNSCH PRN IV FLUSH 09/20/16 22:30 10/13/16 09:54 (NS Flush) 2 ml BID IV FLUSH 09/21/16 09:00 10/21/16 23:30 (Narcan Inj) 0.4 mg UNSCH PRN IV 09/20/16 22:30 (Tylenol) 650 mg Q6HR PRN PEG 09/21/16 01:30 09/26/16 17:50 (Aspirin Chew) 81 mg DAILY PEG 09/21/16 09:00 10/21/16 10:49 (Dulcolax Supp) 10 mg DAILY PRN RECTAL 09/21/16 01:30 10/08/16 12:26 (Ativan) 2 mg Q8HR PRN PEG 09/21/16 01:30 (Zofran Inj) 4 mg Q4HR PRN IV PUSH 09/21/16 01:30 (D50w (Vial) Inj) 25 ml UNSCH PRN IV PUSH 09/21/16 01:30 (Glucagon Inj) 1 mg UNSCH PRN OTHER 09/21/16 01:30 (Protonix Inj) 40 mg DAILY IV PUSH 09/21/16 10:01 10/21/16 10:49 (Robinul) 1 mg TID PEG 09/21/16 13:00 10/21/16 17:46 (Heparin Inj) 5,000 units Q8HR SQ 09/21/16 14:00 10/22/16 05:37 (Reglan Inj) 5 mg Q8HR IV PUSH 09/21/16 14:00 10/22/16 05:37 (NS Flush) See Protocol DAILY IV FLUSH 09/23/16 09:00 10/21/16 10:49 (NS Flush) See Protocol UNSCH PRN IV FLUSH 09/22/16 13:45 10/13/16 09:54 (Heparin Central Flush) See Protocol DAILY IV FLUSH 09/23/16 09:00 10/21/16 10:32 (Heparin Central Flush) See Protocol UNSCH PRN IV FLUSH 09/22/16 13:45 Sodium Chloride UNSCH PRN IV FLUSH 09/22/16 13:45 10/13/16 09:54 (NS 1000 ml Inj) 1,000 ml @ 0 mls/hr Q0M IV 09/22/16 17:30 10/07/16 16:25 Carvedilol 12.5 mg 12.5 mg BID PEG 09/24/16 15:00 10/21/16 23:31 (Diflucan 200 Mg Premix Bag) 100 ml @ 100 mls/hr Q24H IV 10/05/16 16:00 10/21/16 17:30 Miscellaneous Information Patient in critical care unit? Ass... Q361D .XX 10/07/16 08:30 (Levsin Liq) 0.125 mg Q4H PRN PO 10/09/16 18:15 10/21/16 17:48 (Sodium Chloride) 1 gm BID@18 PO 10/12/16 18:00 10/21/16 17:46 (Mark Powder) 1 pack BID G-TUBE 10/13/16 21:00 10/21/16 21:00 (Ferrous Sulfate Liq) 300 mg DAILY PO 10/16/16 14:30 10/21/16 10:51 (Prinivil) 10 mg DAILY PEG 10/17/16 09:00 10/21/16 10:50 (Dilantin Inj) 100 mg Q8HR IV 10/18/16 06:00 10/22/16 05:36 A/P Assessment and Plan [id number] respiratory failure Status post tracheostomy since 2009. 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 Tracheal stent occlusion with clots and debris on 07/01/16 status post revision. 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 History of pseudomonas and stenotrophomonas lower respiratory tract infection from his bronchoscopy 07/04/16. Tracheal stent dislodgment status post removal of the fractured stent and placement of new stent on 07/11/16, stent revision on 07/17/16. New stent placement on 08/03. Transferred to the ICU for hypoxemia. S/p antibiotics. - Continue with oxygen keep sat >92%. - Bronchodilators, pulm toilet, trach care. Levsin and glycopyrrolate as need. - 10/06 T-piece trials initiated. Tolerating. - follow up with pulmonology. Seizure disorder/ Severe Anoxic encephalopathy - Negative MRI studies. Neurology consult appreciated. EEG showing PLEDs, no seizure activity. Unclear what neurologic baseline is since patient had 2 cardiac arrests over at [facility]. - Patient initially on Depakote and Keppra with the patient's daughter refusing these medications, these medications were discontinued by the duct installer. - Neurology reconsulted for facial twitching noted 10/14/16 - Neurology recommendations - neurochecks q 4 hrs, Ativan as needed for seizures more than 3 minutes. - Noted continued to have facial twitching and right upper arm jerking movement, continue ativan. EEG reviewed with aseizure activity. Reconsult neurology, seen by Dr Carter appreciate recommendations. -Loaded with Dilantin , 1500mg IV -Maintenance dose of Dilantin 100mg Q8h, starting 10/18/2016 at 01:00 -Obtain Dilantin level 10/19/2016 on 13:00 -Seizure precautions -Ativan 2mg for seizures lasting > 3 minutes Nutritional Support S/P percutaneous endoscopic gastrostomy (PEG) tube placement. - On tube feeds via PEG tube-Jevity 1.5@60ml/hr and tolerating them well. - Monitor. Increased risk for aspiration. Cardiac arrest History Patient has history of cardiac arrest on August 13 and . Palliative care consult appreciated. - On Coreg 12.5mg BID, Lisinopril 10mg daily, ASA 81 mg daily. - Palliative care following - they spoke with daughter and plan is for patient to go home with [facility] - Continue telemetry. 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 - continue cardiac regimen. Anemia, macrocytic Hgb not far from baseline. Iron studies noted. B12 and folic acid levels elevated. Likely anemia of chronic disease. - check Hemoccult. - We'll start iron supplementation, anemia of chronic disease Diabetes mellitus type 2 Last A1c in our system was 5.3%. - Diabetes is diet-controlled with blood sugars stable. There is no need for regular Accu-Cheks and to cover with supplemental insulin scale. - monitor BMP as needed. Abdominal distention Noted on exam 10/10/16. KUB unremarkable. - Bowel regimen. - Monitor. HTN Hypotension episode - resolved. - On Coreg 12.5 mg twice a day, decrease lisinopril to 5 mg daily with hold parameters - Monitor BP trend GI prophylaxis- On Protonix 40mg daily DVT prophylaxis- Heparin Sq No changes to anterior assessment. Discharge Planning Was not discharged due to not safe discharge at this time his Daughter will come back october 22. Cristian Jc MD October 22, 2016 08:28
[2016-10-22] MEDS: SODIUM CHLORIDE 0.9% FLUSH 10 ML FLUSH IV FLUSH SCH ×3 (09:00→20:55)
[2016-10-22] MEDS: ASPIRIN 81 MG CHEW TAB PEG SCH (09:45)
[2016-10-22] MEDS: JUVEN POWDER 1 PACK G-TUBE SCH ×2 (09:45→21:00)
[2016-10-22] MEDS: LISINOPRIL 10 MG TAB PEG SCH (09:45)
[2016-10-22] MEDS: GLYCOPYRROLATE 1 MG TAB PEG SCH ×3 (09:45→18:41)
[2016-10-22] MEDS: FERROUS SULFATE 300 MG /5ML UDC PO SCH (09:45)
[2016-10-22] MEDS: SODIUM CHLORIDE 1 GRAM TAB PO SCH ×2 (09:45→18:41)
[2016-10-22] MEDS: CARVEDILOL 12.5 MG TAB PEG SCH ×2 (09:45→20:55)
[2016-10-22] MEDS: PANTOPRAZOLE SODIUM 40 MG VIAL IV PUSH SCH (09:45)
[2016-10-22] MEDS: TAMSULOSIN HCL 0.4 MG CAP PO SCH (15:04)
[2016-10-22] MEDS: FLUCONAZOLE 200 MG PREMIX BAG 100 ML IV SCH (15:04)
--- NOTE | 2016-10-22 19:49 | HHI.PR ---
Subjective Remarks 80 YOAA male multiple co morbid condition VDRF,Trach, tracheal stent Tolerates Trach collar Tolerates TF On Dilantin. has lot of trach secretion No Fever Objective Vital Signs Vital Signs Date Time Temp Pulse Resp B/P Pulse Ox O2 Delivery O2 Flow Rate FiO2 10/22/16 18:43 94 T-Piece 7.00 28 10/22/16 16:30 97.5 65 18 132/70 94 10/22/16 15:22 100 T-Piece 7.00 28 10/22/16 12:49 97.5 67 18 110/58 100 10/22/16 09:44 97 T-piece 40 10/22/16 09:31 97.4 70 18 126/67 93 10/22/16 06:48 67 10/22/16 04:00 97.4 69 20 116/74 100 10/22/16 00:00 97.6 69 20 105/73 100 10/21/16 21:45 T-Piece 7.00 10/21/16 20:00 97.5 69 20 129/62 100 I/O 10/21/16 10/21/16 10/21/16 10/22/16 10/22/16 10/22/16 07:00 15:00 23:00 07:00 15:00 23:00 Intake Total 604 ml 0 ml 1300 ml Output Total 600 ml 550 ml 250 ml 375 ml 1000 ml Balance 4 ml -550 ml 1050 ml -375 ml -1000 ml Intake Oral 0 ml IV Total 4 ml 100 ml Tube Feeding 600 ml 900 ml Other 300 ml Output Urine Total 600 ml 550 ml 250 ml 375 ml 1000 ml Objective Remarks GENERAL: Elderly male, on Vent SKIN: Warm and dry. HEAD: Normocephalic. EYES: No scleral icterus. No injection or drainage. NECK: Supple, trachea midline. No JVD or lymphadenopathy. Has trach CARDIOVASCULAR: Regular rate and rhythm without murmurs, gallops, or rubs. RESPIRATORY: Breath sounds equal bilaterally. No accessory muscle use. GASTROINTESTINAL: Abdomen soft, non-tender, nondistended. PEG tube in place MUSCULOSKELETAL: No cyanosis, or edema. BACK: Nontender without obvious deformity. No CVA tenderness. A/P Assessment and Plan VDRF Trach Tracheal stent Sz disorder S/P AAA repair S/P cardiac arrest PLAN: Trach care Aerosol nebs TF Cont trach collar Cont Daron Lares MD October 22, 2016 19:49
[2016-10-23] VITALS (9 sets, daily range): BP systolic 111–151; BP diastolic 62–85; PULSE 67–84; RESP 16–20; TEMP 97–97.5; O2SAT 92–100
[2016-10-23] MEDS: PHENYTOIN INJ 100 MG/2 ML VIAL IV SCH ×3 (05:01→21:03)
[2016-10-23] MEDS: METOCLOPRAMIDE HCL 10 MG/2 ML VIAL IV PUSH SCH ×3 (05:01→21:03)
[2016-10-23] MEDS: HEPARIN SODIUM - SQ 10,000 UNITS/ML VIAL SQ SCH ×3 (05:02→21:03)
[2016-10-23] MEDS: LISINOPRIL 10 MG TAB PEG SCH (09:00)
[2016-10-23] MEDS: JUVEN POWDER 1 PACK G-TUBE SCH ×2 (10:28→21:00)
[2016-10-23] MEDS: SODIUM CHLORIDE 0.9% FLUSH 10 ML FLUSH IV FLUSH SCH ×3 (10:28→20:46)
[2016-10-23] MEDS: PANTOPRAZOLE SODIUM 40 MG VIAL IV PUSH SCH (10:29)
[2016-10-23] MEDS: CARVEDILOL 12.5 MG TAB PEG SCH ×2 (10:29→20:45)
[2016-10-23] MEDS: ASPIRIN 81 MG CHEW TAB PEG SCH (10:29)
[2016-10-23] MEDS: SODIUM CHLORIDE 1 GRAM TAB PO SCH ×2 (10:30→17:01)
[2016-10-23] MEDS: GLYCOPYRROLATE 1 MG TAB PEG SCH ×3 (10:30→17:01)
[2016-10-23] MEDS: FERROUS SULFATE 300 MG /5ML UDC PO SCH (10:30)
[2016-10-23] MEDS: FLUCONAZOLE 200 MG PREMIX BAG 100 ML IV SCH (17:00)
[2016-10-23] MEDS: TAMSULOSIN HCL 0.4 MG CAP PO SCH (17:00)
--- NOTE | 2016-10-23 17:14 | HHI.PR ---
Subjective Remarks 80 YOAA male multiple co morbid condition VDRF,Trach, tracheal stent Tolerates Trach collar Tolerates TF On Dilantin. has lot of trach secretion Objective Vital Signs Vital Signs Date Time Temp Pulse Resp B/P Pulse Ox O2 Delivery O2 Flow Rate FiO2 10/23/16 17:03 97 T-Piece 7.00 28 10/23/16 16:00 97.0 67 20 150/79 97 10/23/16 13:03 92 T-Piece 7.00 28 10/23/16 12:00 97.4 71 20 135/70 92 10/23/16 11:28 71 10/23/16 10:32 98 T-Piece 7.00 28 10/23/16 08:38 98 T-piece 35 10/23/16 08:00 97.5 84 18 111/62 97 10/23/16 05:42 97.2 67 18 131/77 95 10/23/16 00:47 97.3 67 18 126/74 96 10/22/16 20:56 97.3 74 18 130/76 98 10/22/16 20:25 72 10/22/16 20:00 T-Piece 7.00 28 10/22/16 18:43 94 T-Piece 7.00 28 I/O 10/22/16 10/22/16 10/22/16 10/23/16 10/23/16 10/23/16 06:59 14:59 22:59 06:59 14:59 22:59 Intake Total 1150 ml Output Total 375 ml 1000 ml 600 ml 400 ml 1300 ml Balance -375 ml -1000 ml -600 ml -400 ml -1300 ml 1150 ml IV Total 100 ml Tube Feeding 750 ml Other 300 ml Output Urine Total 375 ml 1000 ml 600 ml 400 ml 800 ml Stool Total 500 ml Objective Remarks GENERAL: Elderly male, on Vent SKIN: Warm and dry. HEAD: Normocephalic. EYES: No scleral icterus. No injection or drainage. NECK: Supple, trachea midline. No JVD or lymphadenopathy. Has trach CARDIOVASCULAR: Regular rate and rhythm without murmurs, gallops, or rubs. RESPIRATORY: Breath sounds equal bilaterally. No accessory muscle use. GASTROINTESTINAL: Abdomen soft, non-tender, nondistended. PEG tube in place MUSCULOSKELETAL: No cyanosis, or edema. BACK: Nontender without obvious deformity. No CVA tenderness. A/P Assessment and Plan VDRF Trach Tracheal stent Sz disorder S/P AAA repair S/P cardiac arrest PLAN: Trach care Aerosol nebs TF Cont trach collar Cont Daron Lares MD October 23, 2016 17:14
--- NOTE | 2016-10-23 18:19 | HHI.PR ---
Subjective Remarks Mr. Cesar is a 80-year -[place] male who was transferred from [facility]. He was initially admitted to the hospital on July 01. At that time he had a problem with the tracheostomy tube. He has a history of tracheostomy and he has a tracheal stent. He had a problem with the stent and he was sent to [facility] where he had multiple procedures done. The trach was revised and clots were removed. While he was over there he had multiple bronchoscopies, cardiac arrest x2 and multiple infections. Now he is sent over to [facility] for further management. 10/23: Seen in his bedroom, discussed with nurse, patient non verbal. no changes to anterior assessment. Objective Vital Signs Date Time Temp Pulse Resp B/P Pulse Ox O2 Delivery O2 Flow Rate FiO2 10/23/16 17:03 97 T-Piece 7.00 28 10/23/16 16:00 97.0 67 20 150/79 97 10/23/16 13:03 92 T-Piece 7.00 10/23/16 12:00 97.4 71 20 135/70 92 10/23/16 11:28 71 10/23/16 10:32 98 T-Piece 7.00 10/23/16 08:38 98 T-piece 35 10/23/16 08:00 97.5 84 18 111/62 97 10/23/16 05:42 97.2 67 18 131/77 95 10/23/16 00:47 97.3 67 18 126/74 96 10/22/16 20:56 97.3 74 18 130/76 98 10/22/16 20:25 72 10/22/16 20:00 T-Piece 7.00 10/22/16 18:43 94 T-Piece 7.00 28 I/O 10/22/16 10/22/16 10/22/16 10/23/16 10/23/16 10/23/16 07:00 15:00 23:00 07:00 15:00 23:00 Intake Total 1150 ml Output Total 375 ml 1000 ml 600 ml 400 ml 1300 ml Balance -375 ml -1000 ml -600 ml -400 ml -1300 ml 1150 ml IV Total 100 ml Tube Feeding 750 ml Other 300 ml Output Urine Total 375 ml 1000 ml 600 ml 400 ml 800 ml Stool Total 500 ml Imaging Last Impressions Abdomen X-Ray 10/10/16 0000 Signed Impressions: Service Date/Time: Monday, October 10, 2016 13:59 - CONCLUSION: 1. Normal bowel gas pattern. 2. Aortic endograft. Jace Mason Jr., MD Chest X-Ray 10/07/16 0600 Signed Impressions: Service Date/Time: Friday, October 07, 2016 03:43 - CONCLUSION: The previously noted left lung infiltrate has resolved. No definite new infiltrates are seen. Yoni Guaman MD Procedures No procedures performed. Other Results Laboratory Tests Test 10/19/16 05:51 Phenytoin (Dilantin) Level 18.6 MCG/ML Objective Remarks GA: patient nonverbal, trach in place, more calm today, no jerking movements of his face or arm. SKIN: Sacral decubitus with wound packing. EYES: Left-sided ptosis No scleral icterus. No injection or drainage. Eyes deviated to the right. ENT: Nose without bleeding, purulent drainage or septal hematoma Airway patent. NECK: Trachea midline. No JVD. Tracheostomy in place CARDIOVASCULAR: Regular rate and rhythm without murmurs, gallops, or rubs. RESPIRATORY: Bilateral rhonchi, no wheezing. No crackles auscultated. GASTROINTESTINAL: Abdomen soft, non-tender, nondistended. No guarding. No suprapubic tenderness. PEG in place, no erythema or purulent discharge observed. MUSCULOSKELETAL: Bilateral lower extremity contracture. Atrophic. NEUROLOGICAL: Eyes closed. Does not follow any commands. Bilateral upper and lower extremity contractures with muscle atrophy. No jerking movements of his face or arm. Medications and IVs Current Medications Medications (Trade) Dose Ordered Sig/Harry Route Start Time Stop Time Status Last Admin (NS Flush) 2 ml UNSCH PRN IV FLUSH 09/20/16 22:30 10/13/16 09:54 (NS Flush) 2 ml BID IV FLUSH 09/21/16 09:00 10/23/16 10:28 (Narcan Inj) 0.4 mg UNSCH PRN IV 09/20/16 22:30 (Tylenol) 650 mg Q6HR PRN PEG 09/21/16 01:30 09/26/16 17:50 (Aspirin Chew) 81 mg DAILY PEG 09/21/16 09:00 10/23/16 10:29 (Dulcolax Supp) 10 mg DAILY PRN RECTAL 09/21/16 01:30 10/08/16 12:26 (Ativan) 2 mg Q8HR PRN PEG 09/21/16 01:30 (Zofran Inj) 4 mg Q4HR PRN IV PUSH 09/21/16 01:30 (D50w (Vial) Inj) 25 ml UNSCH PRN IV PUSH 09/21/16 01:30 (Glucagon Inj) 1 mg UNSCH PRN OTHER 09/21/16 01:30 (Protonix Inj) 40 mg DAILY IV PUSH 09/21/16 10:01 10/23/16 10:29 (Robinul) 1 mg TID PEG 09/21/16 13:00 10/23/16 17:01 (Heparin Inj) 5,000 units Q8HR SQ 09/21/16 14:00 10/23/16 13:45 (Reglan Inj) 5 mg Q8HR IV PUSH 09/21/16 14:00 10/23/16 13:45 (NS Flush) See Protocol DAILY IV FLUSH 09/23/16 09:00 10/23/16 10:29 (NS Flush) See Protocol UNSCH PRN IV FLUSH 09/22/16 13:45 10/13/16 09:54 (Heparin Central Flush) See Protocol DAILY IV FLUSH 09/23/16 09:00 10/23/16 10:28 (Heparin Central Flush) See Protocol UNSCH PRN IV FLUSH 09/22/16 13:45 Sodium Chloride UNSCH PRN IV FLUSH 09/22/16 13:45 10/13/16 09:54 (NS 1000 ml Inj) 1,000 ml @ 0 mls/hr Q0M IV 09/22/16 17:30 10/07/16 16:25 Carvedilol 12.5 mg 12.5 mg BID PEG 09/24/16 15:00 10/23/16 10:29 (Diflucan 200 Mg Premix Bag) 100 ml @ 100 mls/hr Q24H IV 10/05/16 16:00 10/23/16 17:00 Miscellaneous Information Patient in critical care unit? Ass... Q361D .XX 10/07/16 08:30 (Levsin Liq) 0.125 mg Q4H PRN PO 10/09/16 18:15 10/21/16 17:48 (Sodium Chloride) 1 gm BID@09,18 PO 10/12/16 18:00 10/23/16 17:01 (Mark Powder) 1 pack BID G-TUBE 10/13/16 21:00 10/23/16 10:28 (Ferrous Sulfate Liq) 300 mg DAILY PO 10/16/16 14:30 10/23/16 10:30 (Prinivil) 10 mg DAILY PEG 10/17/16 09:00 10/22/16 09:45 (Dilantin Inj) 100 mg Q8HR IV 10/18/16 06:00 10/23/16 13:44 A/P Assessment and Plan [id number] respiratory failure Status post tracheostomy since 2009. 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 Tracheal stent occlusion with clots and debris on 07/01/16 status post revision. 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 History of pseudomonas and stenotrophomonas lower respiratory tract infection from his bronchoscopy 07/04/16. Tracheal stent dislodgment status post removal of the fractured stent and placement of new stent on 07/11/16, stent revision on 07/17/16. New stent placement on 08/03. Transferred to the ICU for hypoxemia. S/p antibiotics. - Continue with oxygen keep sat >92%. - Bronchodilators, pulm toilet, trach care. Levsin and glycopyrrolate as need. - 5/12 T-piece trials initiated. Tolerating. - follow up with pulmonology. Seizure disorder/ Severe Anoxic encephalopathy - Negative MRI studies. Neurology consult appreciated. EEG showing PLEDs, no seizure activity. Unclear what neurologic baseline is since patient had 2 cardiac arrests over at [facility]. - Patient initially on Depakote and Keppra with the patient's daughter refusing these medications, these medications were discontinued by the ops manager. - Neurology reconsulted for facial twitching noted 10/14/16 - Neurology recommendations - neurochecks q 4 hrs, Ativan as needed for seizures more than 3 minutes. - Noted continued to have facial twitching and right upper arm jerking movement, continue ativan. EEG reviewed with aseizure activity. Reconsult neurology, seen by Dr Carter appreciate recommendations. -Loaded with Dilantin , 1500mg IV -Maintenance dose of Dilantin 100mg Q8h, starting 10/18/2016 at 01:00 -Obtain Dilantin level 10/19/2016 on 13:00 -Seizure precautions -Ativan 2mg for seizures lasting > 3 minutes Nutritional Support S/P percutaneous endoscopic gastrostomy (PEG) tube placement. - On tube feeds via PEG tube-Jevity 1.5@60ml/hr and tolerating them well. - Monitor. Increased risk for aspiration. Cardiac arrest History Patient has history of cardiac arrest on August 13 and . Palliative care consult appreciated. - On Coreg 12.5mg BID, Lisinopril 10mg daily, ASA 81 mg daily. - Palliative care following - they spoke with daughter and plan is for patient to go home with [facility] arrangements - Continue telemetry. 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 - continue cardiac regimen. Anemia, macrocytic Hgb not far from baseline. Iron studies noted. B12 and folic acid levels elevated. Likely anemia of chronic disease. - check Hemoccult. - We'll start iron supplementation, anemia of chronic disease Diabetes mellitus type 2 Last A1c in our system was 5.3%. - Diabetes is diet-controlled with blood sugars stable. There is no need for regular Accu-Cheks and to cover with supplemental insulin scale. - monitor BMP as needed. Abdominal distention Noted on exam 10/10/16. KUB unremarkable. - Bowel regimen. - Monitor. HTN Hypotension episode - resolved. - On Coreg 12.5 mg twice a day, decrease lisinopril to 5 mg daily with hold parameters - Monitor BP trend GI prophylaxis- On Protonix 40mg daily DVT prophylaxis- Heparin Sq No changes to anterior assessment. Discharge Planning Was not discharged due to not safe discharge at this time his Daughter will come back october 22. Cristian Jc MD October 23, 2016 18:19
[2016-10-23] MEDS: HYOSCYAMINE SOLN 0.125 MG/ML 15 ML BTL PO PRN (21:10)
[2016-10-24] VITALS (8 sets, daily range): BP systolic 110–156; BP diastolic 63–75; PULSE 64–69; RESP 18–22; TEMP 95.9–97.5; O2SAT 9–99
[2016-10-24] MEDS: HYOSCYAMINE SOLN 0.125 MG/ML 15 ML BTL PO PRN ×3 (01:36→22:05)
[2016-10-24] MEDS: METOCLOPRAMIDE HCL 10 MG/2 ML VIAL IV PUSH SCH ×3 (04:54→22:01)
[2016-10-24] MEDS: PHENYTOIN INJ 100 MG/2 ML VIAL IV SCH ×3 (04:54→22:01)
[2016-10-24] MEDS: HEPARIN SODIUM - SQ 10,000 UNITS/ML VIAL SQ SCH ×3 (04:54→22:05)
[2016-10-24] MEDS: PANTOPRAZOLE SODIUM 40 MG VIAL IV PUSH SCH (08:40)
[2016-10-24] MEDS: ASPIRIN 81 MG CHEW TAB PEG SCH (08:40)
[2016-10-24] MEDS: SODIUM CHLORIDE 0.9% FLUSH 10 ML FLUSH IV FLUSH SCH ×3 (08:40→21:58)
[2016-10-24] MEDS: SODIUM CHLORIDE 1 GRAM TAB PO SCH ×2 (08:41→17:21)
[2016-10-24] MEDS: LISINOPRIL 10 MG TAB PEG SCH (08:41)
[2016-10-24] MEDS: CARVEDILOL 12.5 MG TAB PEG SCH ×2 (08:41→21:58)
[2016-10-24] MEDS: GLYCOPYRROLATE 1 MG TAB PEG SCH ×3 (08:41→17:21)
[2016-10-24] MEDS: FERROUS SULFATE 300 MG /5ML UDC PO SCH (08:41)
[2016-10-24] MEDS: JUVEN POWDER 1 PACK G-TUBE SCH ×2 (08:42→21:00)
[2016-10-24] MEDS ORDERED: [UNRECOGNIZED DRUG - SUPPLY] TOPICAL (14:14)
[2016-10-24] MEDS ORDERED: LIFT HOYER (14:14)
[2016-10-24] MEDS ORDERED: [UNRECOGNIZED DRUG - SUPPLY] TOPICAL (14:14)
[2016-10-24] MEDS ORDERED: LISI10TA3 PEG (14:14)
[2016-10-24] MEDS ORDERED: OXYGENTANK TRACH.MASK (14:14)
[2016-10-24] MEDS ORDERED: [UNRECOGNIZED DRUG - SUPPLY] TOPICAL (14:14)
--- NOTE | 2016-10-24 14:19 | HHI.FF ---
Face to Face Verification Diagnosis: (1) Chronic respiratory failure (2) Tracheostomy in place (3) Debility (4) Encephalopathy acute Physical Therapy Order: Evaluate and Treat Occupational Therapy Order: Evaluate and Treat Home Health Nursing Order: Signs/symptoms of disease process Home Health Aide Order: To Assist In: Bathing and personal care I have seen patient Carlos Cesar on 10/24/16. My clinical findings support the need for the requested home health care services because: Ltd mobility - disease progression Patient has SOB Deconditioned w/ increased weakness Limited ability to care for self Impaired cognition/judgement High risk of falls I certify that my clinical findings support that this patient is homebound because: Impaired cognitive ability/safety Unsteady gait/balance Unsafe to leave home unassisted Need for psychosocial assistance Jtd-[id number] bed/chair Unable to use public transportation Natan Abraham MD October 24, 2016 14:19
--- NOTE | 2016-10-24 14:31 | HHI.PR ---
Subjective Remarks Patient is nonverbal chronically. Home equipment in arrangement process. He will be discharging home soon, when medically cleared. Objective Vital Signs Date Time Temp Pulse Resp B/P Pulse Ox O2 Delivery O2 Flow Rate FiO2 10/24/16 13:00 T-Piece 7.00 28 10/24/16 12:00 97.5 67 18 110/66 94 10/24/16 09:00 T-Piece 7.00 28 10/24/16 08:00 97.5 68 18 156/72 95 10/24/16 04:00 97.3 65 18 155/71 95 10/24/16 00:00 97.3 64 18 146/75 9 10/23/16 21:10 99 T-piece 5.00 35 10/23/16 20:15 T-Piece 7.00 28 10/23/16 20:00 97.2 75 16 151/85 100 10/23/16 20:00 70 10/23/16 17:03 97 T-Piece 7.00 28 10/23/16 16:00 97.0 67 20 150/79 97 I/O 10/23/16 10/23/16 10/23/16 10/24/16 10/24/16 10/24/16 07:00 15:00 23:00 07:00 15:00 23:00 Intake Total 1750 ml 600 ml Output Total 400 ml 1300 ml 450 ml Balance -400 ml -1300 ml 1300 ml 600 ml IV Total 100 ml 600 ml Tube Feeding 1350 ml Other 300 ml Output Urine Total 400 ml 800 ml 450 ml Stool Total 500 ml # Voids 1 # Bowel Movements 0 Imaging Last Impressions Abdomen X-Ray 10/10/16 0000 Signed Impressions: Service Date/Time: Monday, October 10, 2016 13:59 - CONCLUSION: 1. Normal bowel gas pattern. 2. Aortic endograft. Jace Mason Jr., MD Chest X-Ray 10/07/16 0600 Signed Impressions: Service Date/Time: Friday, October 07, 2016 03:43 - CONCLUSION: The previously noted left lung infiltrate has resolved. No definite new infiltrates are seen. Yoni Guaman MD Procedures No procedures performed. Objective Remarks GENERAL: NAD, A&Ox0 SKIN: Warm and dry. HEAD: Normocephalic. EYES: No scleral icterus. No injection or drainage. NECK: Supple, tracheostomy at midline. No JVD or lymphadenopathy. CARDIOVASCULAR: Regular rate and rhythm without murmurs, gallops, or rubs. RESPIRATORY: Breath sounds equal bilaterally. No accessory muscle use. GASTROINTESTINAL: Abdomen soft, non-tender, nondistended. MUSCULOSKELETAL: No cyanosis, or edema. BACK: Nontender without obvious deformity. No CVA tenderness. Medications and IVs Administered Medications Medications (Trade) Dose Ordered Sig/Harry Route PRN Reason Start Time Stop Time Status Last Admin Dose Admin Sodium Chloride (NS Flush) 2 ml UNSCH PRN IV FLUSH FLUSH AFTER USING IV ACCESS 09/20/16 22:30 10/13/16 09:54 Sodium Chloride (NS Flush) 2 ml BID IV FLUSH 09/21/16 09:00 10/23/16 20:46 Acetaminophen (Tylenol) 650 mg Q6HR PRN PEG PAIN SCALE 1 TO 4 09/21/16 01:30 09/26/16 17:50 Aspirin (Aspirin Chew) 81 mg DAILY PEG 09/21/16 09:00 10/24/16 08:40 Bisacodyl (Dulcolax Supp) 10 mg DAILY PRN RECTAL CONSTIPATION 09/21/16 01:30 10/08/16 12:26 Pantoprazole Sodium (Protonix Inj) 40 mg DAILY IV PUSH 09/21/16 10:01 10/24/16 08:40 Glycopyrrolate (Robinul) 1 mg TID PEG 09/21/16 13:00 10/24/16 12:09 Heparin Sodium (Porcine) (Heparin Inj) 5,000 units Q8HR SQ 09/21/16 14:00 10/24/16 14:05 Metoclopramide HCl (Reglan Inj) 5 mg Q8HR IV PUSH 09/21/16 14:00 10/24/16 14:05 Sodium Chloride (NS Flush) See Protocol DAILY IV FLUSH 09/23/16 09:00 10/24/16 08:40 Sodium Chloride (NS Flush) See Protocol UNSCH PRN IV FLUSH SEE PROTOCOL TABLE 09/22/16 13:45 10/13/16 09:54 Heparin Sodium (Porcine) (Heparin Central Flush) See Protocol DAILY IV FLUSH 09/23/16 09:00 10/24/16 08:40 Sodium Chloride UNSCH PRN IV FLUSH SEE PROTOCOL TABLE 09/22/16 13:45 10/13/16 09:54 Sodium Chloride (NS 1000 ml Inj) 1,000 ml @ 0 mls/hr Q0M IV 09/22/16 17:30 10/07/16 16:25 Carvedilol 12.5 mg 12.5 mg BID PEG 09/24/16 15:00 10/24/16 08:41 Fluconazole/ Sodium Chloride (Diflucan 200 Mg Premix Bag) 100 ml @ 100 mls/hr Q24H IV 10/05/16 16:00 10/23/16 17:00 Hyoscyamine Sulfate (Levsin Liq) 0.125 mg Q4H PRN PO secretions 10/09/16 18:15 10/24/16 05:02 Sodium Chloride (Sodium Chloride) 1 gm BID@,18 PO 10/12/16 18:00 10/24/16 08:41 Arginine HCl (Mark Powder) 1 pack BID G-TUBE 10/13/16 21:00 10/24/16 08:42 Ferrous Sulfate (Ferrous Sulfate Liq) 300 mg DAILY PO 10/16/16 14:30 10/24/16 08:41 Lisinopril (Prinivil) 10 mg DAILY PEG 10/17/16 09:00 10/24/16 08:41 Phenytoin Sodium (Dilantin Inj) 100 mg Q8HR IV 10/18/16 06:00 10/24/16 14:05 A/P Problem List: (1) Tracheostomy in place ICD Code: Z93.0 (2) Debility ICD Code: R53.81 (3) Chronic respiratory failure ICD Code: J96.10 (4) Encephalopathy acute ICD Code: G93.40 (5) Uivmr-zy-despdxj respiratory failure ICD Code: J96.20 (6) Diabetes mellitus type 2, controlled ICD Code: E11.9 (7) Dementia ICD Code: F03.90 (8) Seizure disorder ICD Code: G40.909 (9) CAD (coronary artery disease) ICD Code: I25.10 Assessment and Plan Assessment and Plan 80 year old male admitted with acute on chronic respiratory failure. 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 Continue present treatment Anemia, macrocytic Related to chronic disease Stable iron supplementation Diabetes mellitus type 2 Follow blood sugars Insulin Sliding scale Diabetic supplemental feeds HTN Coreg Lisinopril Follow BP DVT prophylaxis Heparin subcutaneously Discharge Plan Plan for discharge to home Daughter and home health caretaking Problem Qualifiers (1) Chronic respiratory failure: Qualified Code: J96.10 - Chronic respiratory failure, unspecified whether with hypoxia or hypercapnia (2) Diabetes mellitus type 2, controlled: Qualified Code: E11.8 - Controlled type 2 diabetes mellitus with complication, without long-term current use of insulin (3) Dementia: Qualified Code: F03.90 - Dementia without behavioral disturbance, unspecified dementia type Natan Abraham MD October 24, 2016 14:31
[2016-10-24] MEDS: TAMSULOSIN HCL 0.4 MG CAP PO SCH (15:58)
[2016-10-24] MEDS: FLUCONAZOLE 200 MG PREMIX BAG 100 ML IV SCH (15:58)
--- NOTE | 2016-10-24 17:03 | HHI.PR ---
Review/Management Diagnosis Chronic encephalopathy Seizures Acute on chronic respiratory failure Hypertension Diabetes ,mellitus Plan Neuro checks Dilantin 100mg Q8h Dilantin level Seizure precautions Ativan 2mg for seizures lasting > 3 minutes DVT prophylaxis Supportive care Stable neurologic exam, will sign off, abimael for questions Diagnosis/Plan: Subjective Subjective Comments No reported seizures No change in neurologic status Active Medications Current Medications Medications (Trade) Dose Ordered Sig/Harry Route Start Time Stop Time Status Last Admin (NS Flush) 2 ml UNSCH PRN IV FLUSH 09/20/16 22:30 10/13/16 09:54 (NS Flush) 2 ml BID IV FLUSH 09/21/16 09:00 10/23/16 20:46 (Narcan Inj) 0.4 mg UNSCH PRN IV 09/20/16 22:30 (Tylenol) 650 mg Q6HR PRN PEG 09/21/16 01:30 09/26/16 17:50 (Aspirin Chew) 81 mg DAILY PEG 09/21/16 09:00 10/24/16 08:40 (Dulcolax Supp) 10 mg DAILY PRN RECTAL 09/21/16 01:30 10/08/16 12:26 (Ativan) 2 mg Q8HR PRN PEG 09/21/16 01:30 (Zofran Inj) 4 mg Q4HR PRN IV PUSH 09/21/16 01:30 (D50w (Vial) Inj) 25 ml UNSCH PRN IV PUSH 09/21/16 01:30 (Glucagon Inj) 1 mg UNSCH PRN OTHER 09/21/16 01:30 (Protonix Inj) 40 mg DAILY IV PUSH 09/21/16 10:01 10/24/16 08:40 (Robinul) 1 mg TID PEG 09/21/16 13:00 10/24/16 12:09 (Heparin Inj) 5,000 units Q8HR SQ 09/21/16 14:00 10/24/16 14:05 (Reglan Inj) 5 mg Q8HR IV PUSH 09/21/16 14:00 10/24/16 14:05 (NS Flush) See Protocol DAILY IV FLUSH 09/23/16 09:00 10/24/16 08:40 (NS Flush) See Protocol UNSCH PRN IV FLUSH 09/22/16 13:45 10/13/16 09:54 (Heparin Central Flush) See Protocol DAILY IV FLUSH 09/23/16 09:00 10/24/16 08:40 (Heparin Central Flush) See Protocol UNSCH PRN IV FLUSH 09/22/16 13:45 Sodium Chloride UNSCH PRN IV FLUSH 09/22/16 13:45 10/13/16 09:54 (NS 1000 ml Inj) 1,000 ml @ 0 mls/hr Q0M IV 09/22/16 17:30 10/07/16 16:25 Carvedilol 12.5 mg 12.5 mg BID PEG 09/24/16 15:00 10/24/16 08:41 (Diflucan 200 Mg Premix Bag) 100 ml @ 100 mls/hr Q24H IV 10/05/16 16:00 10/24/16 15:58 Miscellaneous Information Patient in critical care unit? Ass... 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) Codeine (Verified Adverse Reaction, Unknown, Anaphylaxis, 06/30/16) Exam I&O / VS 10/23/16 10/23/16 10/24/16 15:00 23:00 07:00 Intake Total 1750 ml 600 ml Output Total 1300 ml 450 ml Balance -1300 ml 1300 ml 600 ml IV Total 100 ml 600 ml Tube Feeding 1350 ml Other 300 ml Output Urine Total 800 ml 450 ml Stool Total 500 ml # Voids 1 # Bowel Movements 0 Vital Signs Date Time Temp Pulse Resp B/P Pulse Ox O2 Delivery O2 Flow Rate FiO2 10/24/16 16:29 99 T-piece 5.00 35 10/24/16 16:29 5.00 10/24/16 16:00 97.5 64 18 140/63 93 10/24/16 13:00 T-Piece 7.00 28 10/24/16 12:00 97.5 67 18 110/66 94 10/24/16 09:00 T-Piece 7.00 28 10/24/16 08:00 97.5 68 18 156/72 95 10/24/16 04:00 97.3 65 18 155/71 95 10/24/16 00:00 97.3 64 18 146/75 9 10/23/16 21:10 99 T-piece 5.00 35 10/23/16 20:15 T-Piece 7.00 28 10/23/16 20:00 97.2 75 16 151/85 100 10/23/16 20:00 70 10/23/16 17:03 97 T-Piece 7.00 28 Exam Comments GENERAL: Nonverbal, noncommunicative, tracheostomy dependent. PEG dependent. HEENT: Atraumatic, normocephalic. Tracheostomy in place. NECK: Tracheostomy in place. CARDIOVASCULAR: Regular rate and rhythm. RESPIRATORY: Decreased air entry bilaterally. GASTROINTESTINAL: Soft abdomen. MUSCULOSKELETAL: Contractures of the bilateral lower extremities. NEUROLOGIC: Nonverbal, does not respond to either verbal or painful stimuli. No spontaneous eye opening. Pupils 2 mm, sluggish reacting to light. No gaze deviation. No facial twitches noted during the encounter. Reflexes 1+ bilateral and symmetrical. No signs of meningeal irritation. Plantars are bilateral mute. Radha Carter MD October 24, 2016 17:03
--- NOTE | 2016-10-24 19:15 | HHI.PR ---
Subjective Remarks 80 YOAA male multiple co morbid condition VDRF,Trach, tracheal stent Tolerates Trach collar Tolerates TF On Dilantin. has lot of trach secretion no Fever Objective Vital Signs Vital Signs Date Time Temp Pulse Resp B/P Pulse Ox O2 Delivery O2 Flow Rate FiO2 10/24/16 16:29 99 T-piece 5.00 35 10/24/16 16:29 5.00 10/24/16 16:00 97.5 64 18 140/63 93 10/24/16 13:00 T-Piece 7.00 28 10/24/16 12:00 97.5 67 18 110/66 94 10/24/16 09:00 T-Piece 7.00 28 10/24/16 08:00 97.5 68 18 156/72 95 10/24/16 04:00 97.3 65 18 155/71 95 10/24/16 00:00 97.3 64 18 146/75 9 10/23/16 21:10 99 T-piece 5.00 35 10/23/16 20:15 T-Piece 7.00 28 10/23/16 20:00 97.2 75 16 151/85 100 10/23/16 20:00 70 I/O 10/23/16 10/23/16 10/23/16 10/24/16 10/24/16 10/24/16 07:00 15:00 23:00 07:00 15:00 23:00 Intake Total 1750 ml 600 ml 0 ml Output Total 400 ml 1300 ml 450 ml 475 ml Balance -400 ml -1300 ml 1300 ml 600 ml -475 ml Intake Oral 0 ml IV Total 100 ml 600 ml Tube Feeding 1350 ml Other 300 ml Output Urine Total 400 ml 800 ml 450 ml 475 ml Stool Total 500 ml # Voids 1 # Bowel Movements 0 Objective Remarks GENERAL: Elderly male, on Vent SKIN: Warm and dry. HEAD: Normocephalic. EYES: No scleral icterus. No injection or drainage. NECK: Supple, trachea midline. No JVD or lymphadenopathy. Has trach CARDIOVASCULAR: Regular rate and rhythm without murmurs, gallops, or rubs. RESPIRATORY: Breath sounds equal bilaterally. No accessory muscle use. GASTROINTESTINAL: Abdomen soft, non-tender, nondistended. PEG tube in place MUSCULOSKELETAL: No cyanosis, or edema. BACK: Nontender without obvious deformity. No CVA tenderness. A/P Assessment and Plan VDRF Trach Tracheal stent Sz disorder S/P AAA repair S/P cardiac arrest PLAN: Trach care Aerosol nebs TF Cont trach collar Cont Daron Lares MD October 24, 2016 19:14
[2016-10-25] VITALS (9 sets, daily range): BP systolic 130–177; BP diastolic 74–109; PULSE 70–80; RESP 18–24; TEMP 96.9–97.6; O2SAT 92–99
[2016-10-25] MEDS: HYOSCYAMINE SOLN 0.125 MG/ML 15 ML BTL PO PRN ×3 (03:30→12:04)
[2016-10-25] MEDS ORDERED: EPINEPHrine HCL (1:10,000) 1 MG/10 ML SYRINGE IV ONE ×2 (05:00)
[2016-10-25] MEDS ORDERED: AMIODARONE HCL 150 MG/3 ML VIAL IV ONE (05:00)
[2016-10-25] MEDS ORDERED: SODIUM BICARBONATE 8.4% INJ 50 MEQ/50 ML SYR IV ONE (05:00)
[2016-10-25] MEDS ORDERED: CALCIUM CHLORIDE 10% SOLN 1 GRAM/10 ML SYR IV ONE (05:00)
[2016-10-25] MEDS ORDERED: ATROPINE SULFATE 1 MG/10 ML SYRINGE IV ONE (05:00)
[2016-10-25] MEDS ORDERED: EPINEPHrine HCL (1:1000) 30 MG/30 ML VIAL IV ONE ×2 (05:00)
[2016-10-25] MEDS: PHENYTOIN INJ 100 MG/2 ML VIAL IV SCH ×3 (05:26→20:45)
[2016-10-25] MEDS: METOCLOPRAMIDE HCL 10 MG/2 ML VIAL IV PUSH SCH ×3 (05:27→20:45)
[2016-10-25] MEDS: HEPARIN SODIUM - SQ 10,000 UNITS/ML VIAL SQ SCH ×3 (05:27→20:46)
[2016-10-25 05:49] LABS: HEMATOCRIT 28.2 % (39.0-51.0); MEAN CELL VOLUME 97.2 FL (80.0-100.0); PLATELET COUNT 257 TH/MM3 (150-450); RED CELL DISTRIBUTION WIDTH 19.3 % (11.6-17.2); REVIEW FLAG FINAL; WHITE BLOOD COUNT 5.5 TH/MM3 (4.0-11.0)
[2016-10-25 06:25] LABS: POTASSIUM 6.2 MEQ/L (3.5-5.1)
[2016-10-25 08:08] LABS: BICARBONATE 30.6 MEQ/L (21.0-32.0)
[2016-10-25] MEDS: JUVEN POWDER 1 PACK G-TUBE SCH ×2 (09:00→20:43)
[2016-10-25] MEDS: SODIUM CHLORIDE 0.9% FLUSH 10 ML FLUSH IV FLUSH SCH ×3 (09:00→20:43)
[2016-10-25] MEDS ORDERED: 3% SALINE INJ 250 ML IV SCH (09:00)
[2016-10-25] MEDS: SODIUM CHLOR 0.9% 1000 ML INJ 1,000 ML IV SCH ×2 (09:19→17:39)
[2016-10-25] MEDS: FERROUS SULFATE 300 MG /5ML UDC PO SCH (09:21)
[2016-10-25] MEDS: ASPIRIN 81 MG CHEW TAB PEG SCH (09:21)
[2016-10-25] MEDS: PANTOPRAZOLE SODIUM 40 MG VIAL IV PUSH SCH (09:21)
[2016-10-25] MEDS: CARVEDILOL 12.5 MG TAB PEG SCH (09:21)
[2016-10-25] MEDS: SODIUM CHLORIDE 1 GRAM TAB PO SCH ×2 (09:22→18:38)
[2016-10-25] MEDS: GLYCOPYRROLATE 1 MG TAB PEG SCH ×3 (09:22→18:00)
[2016-10-25] MEDS: LISINOPRIL 10 MG TAB PEG SCH (09:22)
[2016-10-25 10:54] LABS: BLOOD GAS BASE EXCESS 4.3 mmol/L (-2-2); BLOOD GAS CARBOXYHEMOGLOBIN 1.6 % (0-4); BLOOD GAS HCO3 30 mmol/L (22-26); BLOOD GAS METHEMOGLOBIN 0.6 % (0-2); BLOOD GAS O2 HGB SATURATION 91 % (90-100); BLOOD GAS OXYGEN CONTENT 14.5 Vol % (12.0-20.0); BLOOD GAS PCO2 57 mmHg (38-42); BLOOD GAS PO2 73 mmHg (61-120); BLOOD GAS TOTAL HGB 11.3 G/DL (12.0-16.0); TEMP CORR TO 98.6
[2016-10-25 10:58] LABS: CRITICAL VALUE YES; DRAW SITE LT RADIAL; FIO2 35 %; NUMBER OF ARTERIAL PUNCTURES 2; OXYGEN DEVICE TPIECE; STAT NO; ULNAR PULSE PRESENT
--- NOTE | 2016-10-25 14:32 | HHI.PR ---
Subjective Remarks Hyponatremia is present today. This needs to be corrected prior to discharge. Patient is nonverbal chronically. Objective Vital Signs Date Time Temp Pulse Resp B/P Pulse Ox O2 Delivery O2 Flow Rate FiO2 10/25/16 12:00 97.4 78 18 141/81 93 10/25/16 11:23 T-Piece 7.00 28 10/25/16 10:03 94 T-piece 35 10/25/16 08:00 97.3 77 18 177/109 92 10/25/16 06:08 96.9 76 24 155/79 94 10/25/16 00:00 97.6 70 20 130/85 99 10/24/16 20:16 68 10/24/16 20:00 T-Piece 7.00 28 10/24/16 20:00 95.9 69 22 120/67 92 10/24/16 16:29 99 T-piece 5.00 35 10/24/16 16:29 5.00 10/24/16 16:00 97.5 64 18 140/63 93 I/O 10/24/16 10/24/16 10/24/16 10/25/16 10/25/16 10/25/16 07:00 15:00 23:00 07:00 15:00 23:00 Intake Total 600 ml 0 ml Output Total 475 ml 250 ml 400 ml Balance 600 ml -475 ml -250 ml -400 ml Intake Oral 0 ml IV Total 600 ml Output Urine Total 475 ml 250 ml 400 ml # Voids 1 # Bowel Movements 0 Result Diagram: 10/25/16 0510 10/25/16 0730 Procedures No procedures performed. Objective Remarks GENERAL: NAD, A&Ox0 SKIN: Warm and dry. HEAD: Normocephalic. EYES: No scleral icterus. No injection or drainage. NECK: Supple, tracheostomy at midline. No JVD or lymphadenopathy. CARDIOVASCULAR: Regular rate and rhythm without murmurs, gallops, or rubs. RESPIRATORY: Breath sounds equal bilaterally. No accessory muscle use. GASTROINTESTINAL: Abdomen soft, non-tender, nondistended. MUSCULOSKELETAL: No cyanosis, or edema. BACK: Nontender without obvious deformity. No CVA tenderness. A/P Problem List: (1) Tracheostomy in place ICD Code: Z93.0 (2) Debility ICD Code: R53.81 (3) Chronic respiratory failure ICD Code: J96.10 (4) Encephalopathy acute ICD Code: G93.40 (5) Raowc-ks-rstcgev respiratory failure ICD Code: J96.20 (6) Diabetes mellitus type 2, controlled ICD Code: E11.9 (7) Dementia ICD Code: F03.90 (8) Seizure disorder ICD Code: G40.909 (9) CAD (coronary artery disease) ICD Code: I25.10 Assessment and Plan Assessment and Plan 80 year old male admitted with acute on chronic respiratory failure. Hyponatremia present today. IV hydration with normal saline started. Slow correction as planned. 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 Continue present treatment Anemia, macrocytic Related to chronic disease Stable iron supplementation Diabetes mellitus type 2 Follow blood sugars Insulin Sliding scale Diabetic supplemental feeds HTN Coreg Lisinopril Follow BP DVT prophylaxis Heparin subcutaneously Discharge Plan Plan for discharge to home Daughter and home health caretaking Problem Qualifiers (1) Chronic respiratory failure: Qualified Code: J96.10 - Chronic respiratory failure, unspecified whether with hypoxia or hypercapnia (2) Diabetes mellitus type 2, controlled: Qualified Code: E11.8 - Controlled type 2 diabetes mellitus with complication, without long-term current use of insulin (3) Dementia: Qualified Code: F03.90 - Dementia without behavioral disturbance, unspecified dementia type Natan Abraham MD October 25, 2016 2:32 pm
--- NOTE | 2016-10-25 15:34 | HHI.PR ---
Addendum to Inpatient Note Addendum Reason: Additional Documentation Additional Information Resident team heard overhead page regarding Code Blue in room 1433. By the time we arrived, Aircraft Stress Analyst Dr. Rizo was already there running the code. Stayed at bedside until ROSC with palpable femoral pulses. However, despite ROSC, pupils unequal and not reactive to light, and no corneal reflexes present. Plan to transfer pt to ICU. Family notified. Pt s/d/w Dr. Osborn. Hector Sinclair MD R1 October 25, 2016 15:33
[2016-10-25] MEDS ORDERED: NOREPINEPHRINE INJ 4 MG in SODIUM CHLOR 0.9% 250 ML INJ 246 ML IV SCH (15:45)
[2016-10-25] MEDS ORDERED: TERBUTALINE INJ 1 MG/ML AMP SQ PRN ×2 (15:45→17:45)
[2016-10-25] MEDS ORDERED: AMIODARONE INJ 150 MG in DEXTROSE 5% IN WATER 100ML INJ 97 ML IV ONE ×2 (15:45)
[2016-10-25] MEDS ORDERED: AMIODARONE INJ 900 MG in D5W 500 ML (EXCEL BAG) 482 ML IV SCH (15:45)
[2016-10-25] MEDS: TAMSULOSIN HCL 0.4 MG CAP PO SCH (16:00)
[2016-10-25] MEDS ORDERED: AMIODARONE INJ 450 MG in D5W (EXCEL BAG) 241 ML IV SCH (16:00)
[2016-10-25] MEDS: FLUCONAZOLE 200 MG PREMIX BAG 100 ML IV SCH (16:00)
[2016-10-25 16:09] LABS: BLOOD GAS BASE EXCESS -6.9 mmol/L (-2-2); BLOOD GAS CARBOXYHEMOGLOBIN 1.4 % (0-4); BLOOD GAS HCO3 20 mmol/L (22-26); BLOOD GAS METHEMOGLOBIN 0.7 % (0-2); BLOOD GAS O2 HGB SATURATION 98 % (90-100); BLOOD GAS OXYGEN CONTENT 16.7 Vol % (12.0-20.0); BLOOD GAS PCO2 51 mmHg (38-42); BLOOD GAS PO2 277 mmHg (61-120); BLOOD GAS TOTAL HGB 11.7 G/DL (12.0-16.0); CRITICAL VALUE YES; DRAW SITE ART LINE; FIO2 100 %; OXYGEN DEVICE VENTILATOR; STAT YES; TEMP CORR TO 98.6; VENT SETTINGS 16/550/+5/100%
[2016-10-25] MEDS ORDERED: SODIUM CHLOR 0.9% 1000 ML INJ 1,000 ML IV ONE (16:15)
[2016-10-25] MEDS ORDERED: VASOPRESSIN INJ 20 UNITS/ML VIAL ONE (16:18)
[2016-10-25 16:43] LABS: AUTOMATED NEUTROPHIL # 3.9 TH/MM3 (1.8-7.7); BASOPHIL % 0.2 % (0.0-2.0); EOSINOPHIL # 0.2 TH/MM3 (0-0.4); EOSINOPHIL % 2.8 % (0.0-4.0); HEMATOCRIT 31.8 % (39.0-51.0); HEMO FLAGS DIFF FINAL; LYMPH % 35.3 % (9.0-44.0); LYMPHOCYTE # 2.5 TH/MM3 (1.0-4.8); MEAN CELL VOLUME 99.8 FL (80.0-100.0); MEAN CORPUSCULAR HEMOGLOBIN 33.4 PG (27.0-34.0); MEAN CORPUSCULAR HGB CONC 33.5 % (32.0-36.0); MONO % 6.4 % (0.0-8.0); NEUT % 55.3 % (16.0-70.0); PLATELET COUNT 252 TH/MM3 (150-450); RED BLOOD COUNT 3.19 MIL/MM3 (4.50-5.90); RED CELL DISTRIBUTION WIDTH 19.1 % (11.6-17.2)
--- NOTE | 2016-10-25 16:50 | PD.PROCEDR ---
Procedure Note Procedure DATE: 10/25/2016 PROCEDURE: Right femoral arterial catheter placement INDICATION: Hemodynamic access DETAILS OF PROCEDURE The patient was placed in supine position. The skin was cleansed with Chloraprep. Additional barrier precautions included large sterile drape, sterile gloves, sterile gown, face mask, and hat. 1% lidocaine was used for local anesthesia. Under direct ultrasound guidance and on the initial attempt, the artery was accessed with an introducer needle. The guide wire was advanced. Using Seldinger technique 20-gauge gauge arterial catheter was placed. The guide wire was removed. The catheter was connected to a transducer line and flushed with saline. The video monitor displayed normal arterial wave forms. The catheter was secured with 2-0 silk. A sterile dressing with antibiotic disc was applied. ESTIMATED BLOOD LOSS: minimal COMPLICATIONS: None Bill Rizo MD October 25, 2016 16:50
[2016-10-25 16:53] LABS: APTT (PATIENT) 38.1 SEC (24.3-30.1); PROTHROMBIN TIME - PATIENT 10.7 SEC (9.8-11.6)
--- NOTE | 2016-10-25 16:53 | PD.PROCEDR ---
Central Line Procedure REASON FOR PROCEDURE Central venous access PROCEDURE PERFORMED Central line placement: Right IJ CVL CONSENT Informed consent for procedure was obtained. The risks and benefits of the procedure were discussed to include but limited to bleeding, clot formation, infection, and even . ANESTHESIA Local injection of 1% Lidocaine DESCRIPTION OF THE PROCEDURE The patient was placed in supine, mild Trendelenburg position. The area was exposed and cleansed with ChloraPrep, times two. Large sterile drape was used to cover the patient, with the site exposed, under sterile conditions including cap, face mask, sterile gown, and sterile gloves. On single attempt, the introducer needle was inserted with negative pressure in syringe and venous flash was obtained. The guide wire was then advanced without any restriction and the needle was removed. The dilator was used without any complications. Using Seldinger technique the triple-lumen catheter was advanced over the guide wire to a depth of 16 centimeters. The guide wire was removed. All ports were aspirated with dark venous blood return and flushed easily with sterile saline. All ports were capped. Antibiotic disc was placed around central line at puncture site. The central line was secured to the skin with two interrupted 2.0 silk sutures. The area was bandaged with sterile see-through central line bandage. RADIOLOGICAL DATA Ultrasound guidance was used to locate the right internal jugular vein. Doppler /color flow was used to confirm venous flow. COMPLICATIONS: No apparent complications ESTIMATED BLOOD LOSS: Less than 1 cc. Bill Rizo MD October 25, 2016 16:53
--- NOTE | 2016-10-25 16:56 | PD.PROCEDR ---
Procedure Note Procedure CODE BLUE note Initial sign of arrest [id number]. Time CODE BLUE call 1500. This is 80-year-old male status post esophageal stent/tracheostomy placement was found in his room diagonal breathing. CODE BLUE event unanticipated. During code, patient received 5 mg epinephrine, 1 ampicillin bicarbonate, 1 g of calcium chloride. At 1515, patient was noted to be in pulseless V. tach/V. fib and was defibrillated with 200 J. Bolused with 300 mg amiodarone IV 1. At 1320, patient was noted to be in V. fib 300 J and see defibrillation. At 1324, again V. fib and received 360 J defibrillation. ROSC at 1328. During code, patient received 2 L normal saline wide open. Patient is transported to room [address] [facility] manually bag in route.. Bill Rizo MD October 25, 2016 16:56
[2016-10-25] MEDS: VASOPRESSIN INJ 40 UNITS in DEXTROSE 5% IN WATER 100ML INJ 98 ML IV SCH ×2 (17:00)
[2016-10-25] MEDS ORDERED: SODIUM CHLORIDE 0.9% FLUSH 10 ML FLUSH IVF PRN (17:00)
[2016-10-25] MEDS: SODIUM CHLORIDE 0.9% FLUSH 10 ML FLUSH IVF SCH (17:00)
--- NOTE | 2016-10-25 17:02 | HHI.CCPN ---
Subjective Remarks/Hospital Course 09/22: Patient was transferred from [facility] to [facility] in [place] on July 01, 2016. He was admitted to our hospital on June 30, 2016. Patient is a trach dependent and PEG dependent patient since about 2010 when we first saw him at our hospital. In June of this year, he presented to our emergency room and was admitted to the paraffiner service. He was having blood clots through his PEG tube as well with respiratory failure requiring ventilator support. He has had history of tracheomalacia with tracheal stent placed in [facility] about 2 years prior. Subsequent workup here in June revealed his tracheal stent 80%occlusion with debris versus mass. Therapeutic bronchoscopy was done here which shows near complete occlusion of tracheal stent with organized clots and mucous. He was managed overnight by paraffiner team and was transferred to [facility] because of this tracheal stent occlusion with hemoptysis. Patient was managed at [facility] for this tracheal stent occlusion and underwent multiple bronchoscopies and tracheostomy revision and tracheal stent revision with new stent placement. He also had cardiac arrest while in hospital on August 13, 2016 and August 14, 2016. He required ventilator support during the hospitalization and currently on FiO2 of 28% through trach. He was managed there for pseudomonas pneumonia with colonization and MRSA from bronchial lavage. 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 He was also managed for massive distention of the colon suspicious for volvulus versus ileus. He was finally stabilized and managed on PCU service at present and transferred back to [facility] on 09/20/16 when he was admitted by the hospitalist service to the floor on [facility]. This morning patient was noted to be lethargic and an ABG revealed PCO2 in the 80s. He was transferred to [facility] with critical care consult being requested by Dr. Chen. He was placed on mechanical ventilation. I evaluated the patient shortly following his arrival. History was obtained by reviewing records and discussion with Dr. Chen. 09/23: Remains encephalopathic on mechanical ventilation via tracheostomy. Tube feeds Resumed yesterday and tolerating well currently. 09/24: Remains encephalopathic on mechanical ventilation via tracheostomy. Blood pressure running high. Increased Coreg and started lisinopril. 09/25: Remains encephalopathic, on mechanical ventilation via tracheostomy. Tolerating tube feeds. Continue C Pap trials daily. 09/26: Remains encephalopathic, on mechanical ventilation via tracheostomy. Having apneic episodes with C Pap trials today. Tolerating tube feeds. 09/27: Remains encephalopathic, and mechanical ventilation via tracheostomy. C Pap/T piece trials as tolerated. 09/28: Continues to remain encephalopathic. Unsuccessful CPAP trials, tolerating tube feeds minimal residuals. 09/29: Tmax 98.4. No change in neurological status. CPAP trials continued but unsuccessful. 09/30: Afebrile. Remains encephalopathic. Patient tolerating CPAP trials greater than 4 hours today. Urine output adequate IV fluids discontinued. 10/01: The patient is advancing on CPAP trials greater than 4 hours today. No change in neurological status. Urine output adequate IV fluids discontinued. 10/02: Family daughter request stating that Keppra be held and continues to refuse Depakote. The patient was maintained on CPAP trials for approximately 4 hours yesterday. The patient was noted to have an elevation in temperature, cultures were obtained. 10/03: Remains encephalopathic. Reconsultation with wound care nurse noted new left area of sacral decubitus, orders for treatment instituted. Keppra and Depakote were placed on hold on the monitor due to refusal from family to allow patient to receive medication. The patient continues on CPAP trials. 10/04: The patient's daughter was noted to be at the bedside. New wound care instructions were implemented. Patient was noted to have 2 lesions on the posterior occiput that will be reevaluated by the wound care nurse. The patient remains encephalopathic. 10/05: Afebrile. The patient was noted to have Medina tropicalis and urine cultures, Diflucan initiated. The patient remains encephalopathic. The patient continues on CPAP trials. 10/06 No acute events overnight. On TP's with 28% FIO2 with good sats. Afebrile. 10/07: Afebrile .Patient's gastric tube consists continually clog. GI consulted, gastric tube placed. Patient was placed on TPiece yesterday, doing well. 10/08: The patient continues on T piece today, continues O2 saturation of 97%. No acute issues overnight. He remains encephalopathic. Subjective 10/25: Reconsulted after CODE BLUE. Patient with prolonged respiratory arrest likely leading to cardiac arrest. Please see CODE BLUE note. Currently on norepinephrine, epinephrine and vasopressin drips for vasopressor support. Objective Vital Signs Date Time Temp Pulse Resp B/P Pulse Ox O2 Delivery O2 Flow Rate FiO2 10/25/16 16:17 95 50 10/25/16 15:03 15.00 10/25/16 12:00 97.4 78 18 141/81 10/25/16 11:23 T-Piece Intake and Output 10/24/16 10/24/16 10/25/16 08:00 16:00 00:00 Intake Total 600 ml 0 ml Output Total 475 ml 250 ml Balance 600 ml -475 ml -250 ml Result Diagram: 10/25/16 0510 10/25/16 0730 Imaging Last Impressions Abdomen X-Ray 10/10/16 0000 Signed Impressions: Service Date/Time: Monday, October 10, 2016 13:59 - CONCLUSION: 1. Normal bowel gas pattern. 2. Aortic endograft. Jace Mason Jr., MD Chest X-Ray 10/07/16 0600 Signed Impressions: Service Date/Time: Friday, October 07, 2016 03:43 - CONCLUSION: The previously noted left lung infiltrate has resolved. No definite new infiltrates are seen. Yoni Guaman MD Objective Remarks GENERAL: This is a 80-year-old elderly male, previously documented as noncommunicative, trach dependent, PEG dependent SKIN: Cool and dry. Sacral decubiti with wound packing evaluated. 2 lesions occipital area, no drainage noted currently HEAD: Atraumatic. Normocephalic. Posterior pinpoint skin lesions noted on the occipital area EYES: Left-sided ptosis. No scleral icterus. No injection or drainage. ENT: Bilateral cerumen impaction. No septal hematoma. Airway patent. Tracheostomy in place NECK: Trachea midline. No JVD. Right IJ clean dry and intact CARDIOVASCULAR: Bradycardia, RR. S1, S2 no S4. RESPIRATORY: On ventilator via tracheostomy. Bilaterally decreased air entry and no wheezing GASTROINTESTINAL: Abdomen soft, non-tender, nondistended.PEG tube site old crusted lesions MUSCULOSKELETAL: Bilateral lower extremity contracture. Atrophic. NEUROLOGICAL: Spontaneously opens his eyes. No tracking noted. Does not follow any commands. Bilateral upper and lower extremity contractures with muscle atrophy. Procedures None Urinary Catheter: Yes Assessment to: Continue Person insert reason: Prolonged Immobilization Vascular Central Line Catheter: Yes Assessment to: Continue Date of Insertion: October 25, 2016 Line: Central Venous Catheter Side: Right Location: Internal, Jugular A/P Assessment and Plan Neuro/Psych: Dementia disorder not otherwise specified Schizophrenia as per note for records to [facility] 11 Seizure disorder NOS - recent EEG 10/17 with bilateral frontal seizure activity followed by neurology Encephalopathy Anxiety disorder NOS Currently on Versed/fentanyl drips for sedation/analgesia while intubated Goal of RA SS -2 Daily sedation vacation - Dr. Prasad-neurology, EEG showing PLEDs, no seizure activity Currently on Dilantin 100 mg IV 3 times a day. Level pending Per prior paraffiner records daughter refusing Depakote and Keppra Unclear what baseline is since patient had 2 cardiac arrests over at [facility]. Pulm: Vent dependent respiratory failure Tracheal stent placement 2014 - stenosis? Tracheostomy procedure July 23, 2016 Tracheal removal replacement, tracheal's stent revision stent [facility] Ventil[facility] Duo nebs every 6 hours with hypertonic saline aerosols for vent patency every 6 hours Continue trach cares Chest x-ray reveals no pneumothorax Follow-up ABG is eating status post vent changed CV: Status post respiratory arrest leading to cardiac arrest History of cardiac arrest August 13 and August 14, 2016 History of hypertension Chronic diastolic heart failure History of AAA repair via stent CAD Lactic acidosis Status post 2 L normal saline Currently on norepinephrine, vasopressin and epinephrine drips to maintain MAP > 65 Currently holding home medications on Coreg 12.5mg BID, Lisinopril 10mg daily, ASA 81 mg daily and hematocrit hypotension Serial lactates until clear. Currently 7.3 Echocardiogram documented mild LV diastolic dysfunction, mild mitral regurgitation, moderate tricuspid regurgitation July 14, 2016 CVP 13 Not a candidate for targeted temperature measurement secondary to hemodynamic instability Continue amiodarone drip per protocol see orders /renal/FEN: BPH History of prostate cancer Person catheter will be placed for accurate I's and O's in a critically ill patient Monitor urine output Accurate I's and O's On Flomax 0.4 milligrams daily at home GI: Dysphagia PEG placement Previously on tube feeds via PEG tube-Jevity 1.5@60ml/hr Protonix for GI prophylaxis Colace/as needed Senokot for bowel regimen ID: History of Pseudomonas and MRSA pneumonia Monitor for signs of infections ( Fever, WBC) d/c Tobra nebs ( has been on it since 09/21) 10/02 Urine cx: medina Tropicalis- On Diflucan Will ojyner culture with blood cultures 2, sputum and urine now Start empirically on vancomycin, aztreonam and Flagyl Skin: Continue wound care for sacral and occipital area Heme: Normocytic anemia Monitor CBC. Follow trends. No indication for transfusion of blood proximal at this time Endo: History diabetes mellitus Euglycemic ,SSI to 6 hours/low regimen FEN: Hyponatremia Hyperkalemia Discontinued 3% saline. Post code labs currently pending. Check serum and urine osm, urine sodium, cortisol TSH and uric acid stat See hyperkalemia protocol orders. Recheck in 3 hours 1 dose of Solu-Cortef after cortisol level drawn rule out adrenal insufficiency Access - Right IJ CVL day 1 placed 10/25 in - right antecubital PICC line Prophylaxis - GI - Protonix - DVT - SCD/heparin subcutaneous Critical Care: The total critical care time was 45 minutes. Time to perform other separately billable procedures was not included in the critical care time. Noted BMP magnesium phosphorus pending 2 hours post code. I will checkout follow-up laboratories to overnight paraffiner. Bill Rizo MD October 25, 2016 17:02
[2016-10-25 17:12] LABS: ANION GAP 14 MEQ/L (5-15)
[2016-10-25 17:14] LABS: ALKALINE PHOSPHATASE 169 U/L (45-117); ALT (GPT) 48 U/L (12-78); AST (GOT) 46 U/L (15-37); BICARBONATE 21.4 MEQ/L (21.0-32.0); BLOOD UREA NITROGEN 36 MG/DL (7-18); CHLORIDE 85 MEQ/L (98-107); CREATINE KINASE 119 U/L (39-308); GLOMERULAR FILTRATION RATE 63 ML/MIN (>89); MAGNESIUM 2.6 MG/DL (1.5-2.5); TOTAL BILIRUBIN ADULT 0.2 MG/DL (0.2-1.0)
[2016-10-25] MEDS ORDERED: DEXTROSE 50% IN WATER 50 ML VIAL(D50) IV PRN (17:30)
[2016-10-25] MEDS ORDERED: Vancomycin Consult Pharmacy 1 EA OTHER SCH (17:30)
[2016-10-25] MEDS ORDERED: GLUCAGON 1 MG/ML VIAL OTHER PRN (17:30)
[2016-10-25 17:44] LABS: SODIUM (NA) 120 MEQ/L (136-145)
[2016-10-25] MEDS ORDERED: DEXTROSE 50% IN WATER 50 ML VIAL(D50) IV PUSH ONE ×2 (17:45→21:28)
[2016-10-25] MEDS ORDERED: PHENYLEPHRINE INJ 160 MG in DEXTROSE 5% IN WATE 500 ML INJ 484 ML IV SCH ×2 (17:45)
[2016-10-25] MEDS ORDERED: SODIUM BICARBONATE 8.4% SOLN 50 MEQ/50 ML VIAL SLOW IVP ONE (17:45)
[2016-10-25] MEDS ORDERED: SODIUM POLYSTYRENE SULFONATE SUSP 15 GM/60 ML CUP PO ONE (17:45)
[2016-10-25] MEDS ORDERED: CALCIUM GLUCONATE 10% 1 GM/10 ML VIAL SLOW IVP ONE (17:45)
[2016-10-25] MEDS: INSULIN NovoLIN REGULAR SUPPLEMENTAL SCALE SQ SCH (18:00)
[2016-10-25] MEDS ORDERED: INSULIN HUMAN REGULAR 1,000 UNITS/10 ML VIAL IV PUSH ONE ×2 (18:00→21:28)
--- NOTE | 2016-10-25 18:10 | RADRPT ---
EXAM DATE/TIME: 10/25/2016 16:13 [facility] COMPARISON: CHEST SINGLE AP, October 07, 2016, 3:43. INDICATIONS : Post CPR. MEDICAL HISTORY : Carcinoma, prostatic. Chronic obstructive pulmonary disease. Gastroesophageal reflux disease. Diabete s. SURGICAL HISTORY : Umbilical hernia repair. ENCOUNTER: Initial ACUITY: 1 day PAIN SCORE: Non-responsive. LOCATION: Bilateral chest FINDINGS: Single AP view of the chest. Lung volumes are low. Tracheostomy tube and right-sided PICC line again noted. New mild confluent opacity in the right upper lung zone. No evidence of pleural effusion or pn eumothorax. CONCLUSION: New right upper lung parenchymal opacity indicating atelectasis versus consolidation. Fede Encarnacion MD on October 25, 2016 at 18:08 Board Certified Radiologist. This report was verified electronically.
--- NOTE | 2016-10-25 18:22 | RADRPT ---
EXAM DATE/TIME: 10/25/2016 16:57 [facility] COMPARISON: CHEST SINGLE AP, October 25, 2016, 16:13. INDICATIONS : Central line placecment. MEDICAL HISTORY : Carcinoma, prostatic. Chronic obstructive pulmonary disease. Diabetes. Dementia, seizure disorder. En cephalopathy. SURGICAL HISTORY : Hernia repair. Trach. Tracheal stent. ENCOUNTER: Subsequent ACUITY: 1 day PAIN SCORE: Non-responsive. LOCATION: chest FINDINGS: A single view of the chest demonstrates a stable patchy airspace disease in the right upper lung. Lef t lung is clear. No effusion. Stable position of the right upper extremity PICC line. Interval placem ent of a right IJ central venous catheter with the tip projecting over the central nervous system. Tr acheostomy tube is stable in position and there appears to be a probable tracheal stent just above th e josh. Degenerative spurring throughout the thoracolumbar spine. Both shoulders are "high riding" suggesting chronic rotator cuff injuries. CONCLUSION: 1. Interval placement of a right IJ central venous catheter with the tip projecting over the central venous system. There is no pneumothorax. Stable patchy infiltrate in the right upper lung. Left lung is clear. 2. Stable position of the tracheostomy tube, right upper extremity PICC line and probable tracheal st ent. Osmar Hunter MD on October 25, 2016 at 18:17 Board Certified Radiologist. This report was verified electronically.
[2016-10-25] MEDS: AZTREONAM INJ 1,000 MG in SODIUM CHLORIDE 0.9% INJ 100 ML IV SCH (18:35)
[2016-10-25] MEDS: HYDROCORTISONE SOD SUCCINATE 100 MG VIAL IV PUSH SCH (18:37)
--- NOTE | 2016-10-25 18:46 | HHI.HCPN ---
JONATAN TSAI was called on patient and he was transferred to ICU. I met with daughter, Libby (a customer sales consultant) outside the room following the CODE. Reviewed respiratory arrest likely led to cardiac arrest. Dr. Rizo provided medical update to daughter upon my arrival. I did not examine patient as central line was being placed. Patient was on norepinephrine, epinephrine and vasopressin drips for vasopressor support. Lengthy discussion with daughter regaridng overall poor prognosis. She verbalizes patient was "so close to coming home, that [facility] [employer] was being delivered in AM." She is tearful. She has a great deal of barney, manager medicaid Bill has visited. She remains hopeful for recovery as she has seen patient survive this in the past. She desires continued aggressive care including FULL CODE. She welcomes continued palliative care visits. She verbalizes God's will and seems she will be at peace if he dies, as long as we tried everything. She told me he promised her "he would fight from the inside and she would fight for him from the outside." * FULL CODE * Decision-making: Patient's daughter, Libby Smith, is the designated health care surrogate. Living will and DURABLE POWER OF ADVERTISING ACCOUNT MANAGER documents have also been completed and can be reviewed in the patient's EMR. * Goals: 10/25/16 Spoke with daughter, Libby post JONATAN TSAI. Overall she understands prognosis is poor, at baseline patient is minimally responsive, dependent for all care, tube feed dependent. She remains hopeful as she has seen him survive in the past when medical teams thought he would . Goals remain aggressive including FULL CODE. * Symptom management dyspnea: in ICU on vent via trach post CODE EULALIO 10/25/16. Pain: Possible causes of pain include immobility, bedbound status, invasiveness lines, tracheostomy, dyspnea, impaired skin integrity etc, shock, compressions, CODE BLUE. No new medication recommendations at this time. * Discussed with Dr. Rizo. * Palliative care number provided. * Palliative care will continue to follow this patient throughout his hospitalization to establish trust, assist with symptom management and clarification of medical treatment goals. DAMASO JACKSON October 25, 2016 18:45
[2016-10-25 18:55] LABS: BLOOD GAS BASE EXCESS -5.4 mmol/L (-2-2); BLOOD GAS CARBOXYHEMOGLOBIN 1.5 % (0-4); BLOOD GAS HCO3 19 mmol/L (22-26); BLOOD GAS METHEMOGLOBIN 0.5 % (0-2); BLOOD GAS O2 HGB SATURATION 97 % (90-100); BLOOD GAS OXYGEN CONTENT 16.7 Vol % (12.0-20.0); BLOOD GAS PCO2 34 mmHg (38-42); BLOOD GAS PO2 114 mmHg (61-120); BLOOD GAS TOTAL HGB 12.2 G/DL (12.0-16.0); CRITICAL VALUE NO; FIO2 50 %; OXYGEN DEVICE VENTILATOR; TEMP CORR TO 98.6; VENT SETTINGS 20/550/+5/50%
[2016-10-25 18:56] LABS: DRAW SITE ART LINE; STAT NO
[2016-10-25] MEDS ORDERED: VANCOMYCIN INJ 2,200 MG in SODIUM CHLORID 0.9% 500 ML INJ 500 ML IV ONE (20:00)
[2016-10-25] MEDS: NOREPINEPHRINE INJ 16 MG in SODIUM CHLOR 0.9% 250 ML INJ 234 ML IV SCH ×2 (20:22→20:42)
[2016-10-25] MEDS: EPINEPHrine (1:1000) INJ 2 MG in DEXTROSE 5% IN WATER INJ 248 ML IV SCH ×2 (20:22)
--- NOTE | 2016-10-25 20:32 | HHI.PR ---
Subjective Remarks 80 YOAA male multiple co morbid condition VDRF,Trach, tracheal stent Pt coded twice, on Vent On 3 pressors On vanco and Aztreonam Objective Vital Signs Vital Signs Date Time Temp Pulse Resp B/P Pulse Ox O2 Delivery O2 Flow Rate FiO2 10/25/16 16:17 95 50 10/25/16 16:00 100 10/25/16 15:03 15.00 100 10/25/16 12:00 97.4 78 18 141/81 93 10/25/16 11:23 T-Piece 7.00 28 10/25/16 10:03 94 T-piece 35 10/25/16 08:00 97.3 77 18 177/109 92 10/25/16 06:08 96.9 76 24 155/79 94 10/25/16 00:00 97.6 70 20 130/85 99 I/O 10/24/16 10/24/16 10/24/16 10/25/16 10/25/16 10/25/16 07:00 15:00 23:00 07:00 15:00 23:00 Intake Total 600 ml 0 ml Output Total 475 ml 250 ml 400 ml Balance 600 ml -475 ml -250 ml -400 ml Intake Oral 0 ml IV Total 600 ml Output Urine Total 475 ml 250 ml 400 ml # Voids 1 # Bowel Movements 0 Result Diagram: 10/25/16 1545 10/25/16 1545 Objective Remarks GENERAL: Elderly male, on Vent SKIN: Warm and dry. HEAD: Normocephalic. EYES: No scleral icterus. No injection or drainage. NECK: Supple, trachea midline. No JVD or lymphadenopathy. Has trach CARDIOVASCULAR: Regular rate and rhythm without murmurs, gallops, or rubs. RESPIRATORY: Breath sounds equal bilaterally. No accessory muscle use. GASTROINTESTINAL: Abdomen soft, non-tender, nondistended. PEG tube in place MUSCULOSKELETAL: No cyanosis, or edema. BACK: Nontender without obvious deformity. No CVA tenderness. A/P Assessment and Plan VDRF S/P Code blue Trach Tracheal stent Sz disorder S/P AAA repair S/P cardiac arrest PLAN: Vent Support PRVC, Fi02 50% Pressors Epi, Levophed and Vasopressin Abx Vanco and Aztreonam DW Dr.Biga Rock,Daron Islas MD October 25, 2016 20:31
[2016-10-25] MEDS: RESP: SODIUM CHLORIDE 3% 4 ML NEB NEB SCH (21:05)
[2016-10-25] MEDS: RESP: ALBUTEROL 2.5 MG/IPRATROPIUM 0.5 MG NEB (SCH) NEB (21:05)
[2016-10-25 21:21] LABS: URIC ACID 4.7 MG/DL (2.6-7.2)
[2016-10-25 21:24] LABS: POTASSIUM 6.7 MEQ/L (3.5-5.1)
[2016-10-25] MEDS ORDERED: CALCIUM GLUCONATE 10% 1 GM/10 ML VIAL IV PUSH ONE (21:28)
[2016-10-25] MEDS ORDERED: SODIUM BICARBONATE 8.4% SOLN 50 MEQ/50 ML VIAL IV PUSH ONE (21:28)
[2016-10-25 23:10] LABS: CORTISOL 253.7 MCG/DL
[2016-10-25 23:50] LABS: BICARBONATE 20.7 MEQ/L (21.0-32.0)
[2016-10-26] VITALS (18 sets, daily range): BP systolic 106–194; BP diastolic 64–104; PULSE 83–99; RESP 20–29; TEMP 97.9–100; O2SAT 93–98
[2016-10-26] MEDS: INSULIN NovoLIN REGULAR SUPPLEMENTAL SCALE SQ SCH ×4 (00:04→17:26)
[2016-10-26] MEDS: HYDROCORTISONE SOD SUCCINATE 100 MG VIAL IV PUSH SCH ×3 (02:12→17:28)
[2016-10-26] MEDS: AZTREONAM INJ 1,000 MG in SODIUM CHLORIDE 0.9% INJ 100 ML IV SCH ×3 (02:13→17:28)
[2016-10-26 03:41] LABS: BASOPHIL # 0.2 TH/MM3 (0-0.2); BASOPHIL % 1.6 % (0.0-2.0); EOSINOPHIL % 0.2 % (0.0-4.0); HEMATOCRIT 36.3 % (39.0-51.0); LYMPH % 9.3 % (9.0-44.0); MEAN CELL VOLUME 94.9 FL (80.0-100.0); MEAN CORPUSCULAR HEMOGLOBIN 31.5 PG (27.0-34.0); MEAN CORPUSCULAR HGB CONC 33.2 % (32.0-36.0); MONO % 12.2 % (0.0-8.0); NEUT % 76.7 % (16.0-70.0); PLATELET COUNT 190 TH/MM3 (150-450); RED BLOOD COUNT 3.83 MIL/MM3 (4.50-5.90); RED CELL DISTRIBUTION WIDTH 18.9 % (11.6-17.2); WHITE BLOOD COUNT 10.5 TH/MM3 (4.0-11.0)
[2016-10-26] MEDS: RESP: ALBUTEROL 2.5 MG/IPRATROPIUM 0.5 MG NEB (SCH) NEB ×4 (03:45→20:09)
[2016-10-26] MEDS: RESP: SODIUM CHLORIDE 3% 4 ML NEB NEB SCH ×4 (03:45→20:09)
[2016-10-26 03:48] LABS: APTT (PATIENT) 36.9 SEC (24.3-30.1); INTERNATIONAL NORMALIZED RATIO 1.2 RATIO; PROTHROMBIN TIME - PATIENT 13.8 SEC (9.8-11.6)
[2016-10-26] MEDS: SODIUM CHLOR 0.9% 1000 ML INJ 1,000 ML IV SCH (04:00)
[2016-10-26 04:12] LABS: HEMO FLAGS AUTO DIFF
[2016-10-26 04:19] LABS: ALKALINE PHOSPHATASE 164 U/L (45-117); ALT (GPT) 996 U/L (12-78); ANION GAP 14 MEQ/L (5-15); AST (GOT) 1122 U/L (15-37); BICARBONATE 18.4 MEQ/L (21.0-32.0); BLOOD UREA NITROGEN 43 MG/DL (7-18); CHLORIDE 93 MEQ/L (98-107); CREATINE KINASE 159 U/L (39-308); GLOMERULAR FILTRATION RATE 41 ML/MIN (>89); MAGNESIUM 2.4 MG/DL (1.5-2.5); SODIUM (NA) 125 MEQ/L (136-145)
[2016-10-26 04:22] LABS: POTASSIUM 7.3 MEQ/L (3.5-5.1)
--- NOTE | 2016-10-26 05:04 | RADRPT ---
EXAM DATE/TIME: 10/26/2016 02:34 [facility] COMPARISON: CT PULMONARY ANGIOGRAM, June 30, 2016, 22:16. CHEST SINGLE AP, October 25, 2016, 16:57. INDICATIONS : Respiratory failure. MEDICAL HISTORY : Carcinoma, prostatic. Chronic obstructive pulmonary disease. Diabetes mellitus type II. SURGICAL HISTORY : Trach. ENCOUNTER: Subsequent ACUITY: 1 month PAIN SCORE: Non-responsive. LOCATION: Bilateral chest FINDINGS: Tracheostomy is stable. Right central line is stable. Right PICC line is stable. Tracheal stent is ag ain noted. Patchy mild bilateral perihilar and basilar infiltrates appear grossly stable. Cardiac con tours are stable. CONCLUSION: No significant change Zach Andrews MD on October 26, 2016 at 5:00 Board Certified Radiologist. This report was verified electronically.
[2016-10-26] MEDS: HEPARIN SODIUM - SQ 10,000 UNITS/ML VIAL SQ SCH ×3 (05:10→21:16)
[2016-10-26] MEDS: PHENYTOIN INJ 100 MG/2 ML VIAL IV SCH ×3 (05:10→21:16)
[2016-10-26] MEDS: METOCLOPRAMIDE HCL 10 MG/2 ML VIAL IV PUSH SCH (05:10)
[2016-10-26 05:24] LABS: BANDS 62 % (0-6); CORRECTED NUCLEATED RBC 3 /100 WBC (0-0); METAMYELOCYTES 4 % (0-1); MYELOCYTES 1 % (0-0); NEUTROPHIL # MANUAL DIFF 8.7 TH/MM3 (1.8-7.7); PLASMA CELLS 1 % (0-0); POLYS (SEG NEUTROPHILS) 16 % (16-70); SCAN/DIFF FINAL DIFF MANUAL; WBC DIFF SAMPLE 100
[2016-10-26 05:25] LABS: PLATELET ESTIMATE SMEAR NORMAL (NORMAL); PLATELET MORPHOLOGY NORMAL (NORMAL); ROULEAUX PRESENT (NORMAL)
[2016-10-26 05:26] LABS: DOHLE BODIES PRESENT (NONE SEEN); TOXIC VACUOLATION PRESENT (NONE SEEN)
[2016-10-26] MEDS: EPINEPHrine (1:1000) INJ 2 MG in DEXTROSE 5% IN WATER INJ 248 ML IV SCH ×4 (06:13→08:47)
[2016-10-26] MEDS: SODIUM CHLORID 0.9% IV SCH (06:13)
[2016-10-26] MEDS: NOREPINEPHRINE IV SCH (06:13)
[2016-10-26] MEDS ORDERED: DEXTROSE 50% IN WATER 50 ML VIAL(D50) IV PUSH ONE (06:45)
[2016-10-26] MEDS ORDERED: SODIUM BICARBONATE 8.4% SOLN 50 MEQ/50 ML VIAL SLOW IVP ONE (06:45)
[2016-10-26] MEDS ORDERED: CALCIUM GLUCONATE 10% 1 GM/10 ML VIAL SLOW IVP ONE (06:45)
[2016-10-26] MEDS ORDERED: ALBUMIN HUMAN 25% 25 GM/100 ML BAGP IV ONE (06:45)
[2016-10-26] MEDS ORDERED: INSULIN HUMAN REGULAR 1,000 UNITS/10 ML VIAL IV PUSH ONE (06:45)
[2016-10-26] MEDS ORDERED: SODIUM POLYSTYRENE SULFONATE SUSP 15 GM/60 ML CUP PO ONE (06:45)
--- NOTE | 2016-10-26 06:57 | HHI.CCPN ---
Subjective Remarks/Hospital Course 09/22: Patient was transferred from [facility] to [facility] in [place] on July 01, 2016. He was admitted to our hospital on June 30, 2016. Patient is a trach dependent and PEG dependent patient since about 2010 when we first saw him at our hospital. In June of this year, he presented to our emergency room and was admitted to the refinery operator service. He was having blood clots through his PEG tube as well with respiratory failure requiring ventilator support. He has had history of tracheomalacia with tracheal stent placed in [facility] about 2 years prior. Subsequent workup here in June revealed his tracheal stent 80%occlusion with debris versus mass. Therapeutic bronchoscopy was done here which shows near complete occlusion of tracheal stent with organized clots and mucous. He was managed overnight by refinery operator team and was transferred to [facility] because of this tracheal stent occlusion with hemoptysis. Patient was managed at [facility] for this tracheal stent occlusion and underwent multiple bronchoscopies and tracheostomy revision and tracheal stent revision with new stent placement. He also had cardiac arrest while in hospital on August 13, 2016 and August 14, 2016. He required ventilator support during the hospitalization and currently on FiO2 of 28% through trach. He was managed there for pseudomonas pneumonia with colonization and MRSA from bronchial lavage. 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 He was also managed for massive distention of the colon suspicious for volvulus versus ileus. He was finally stabilized and managed on PCU service at present and transferred back to [facility] on 09/20/16 when he was admitted by the hospitalist service to the floor on [facility]. This morning patient was noted to be lethargic and an ABG revealed PCO2 in the 80s. He was transferred to [facility] with critical care consult being requested by Dr. Chen. He was placed on mechanical ventilation. I evaluated the patient shortly following his arrival. History was obtained by reviewing records and discussion with Dr. Chen. 09/23: Remains encephalopathic on mechanical ventilation via tracheostomy. Tube feeds Resumed yesterday and tolerating well currently. 09/24: Remains encephalopathic on mechanical ventilation via tracheostomy. Blood pressure running high. Increased Coreg and started lisinopril. 09/25: Remains encephalopathic, on mechanical ventilation via tracheostomy. Tolerating tube feeds. Continue C Pap trials daily. 09/26: Remains encephalopathic, on mechanical ventilation via tracheostomy. Having apneic episodes with C Pap trials today. Tolerating tube feeds. 09/27: Remains encephalopathic, and mechanical ventilation via tracheostomy. C Pap/T piece trials as tolerated. 09/28: Continues to remain encephalopathic. Unsuccessful CPAP trials, tolerating tube feeds minimal residuals. 09/29: Tmax 98.4. No change in neurological status. CPAP trials continued but unsuccessful. 09/30: Afebrile. Remains encephalopathic. Patient tolerating CPAP trials greater than 4 hours today. Urine output adequate IV fluids discontinued. 10/01: The patient is advancing on CPAP trials greater than 4 hours today. No change in neurological status. Urine output adequate IV fluids discontinued. 10/02: Family daughter request stating that Keppra be held and continues to refuse Depakote. The patient was maintained on CPAP trials for approximately 4 hours yesterday. The patient was noted to have an elevation in temperature, cultures were obtained. 10/03: Remains encephalopathic. Reconsultation with wound care nurse noted new left area of sacral decubitus, orders for treatment instituted. Keppra and Depakote were placed on hold on the monitor due to refusal from family to allow patient to receive medication. The patient continues on CPAP trials. 10/04: The patient's daughter was noted to be at the bedside. New wound care instructions were implemented. Patient was noted to have 2 lesions on the posterior occiput that will be reevaluated by the wound care nurse. The patient remains encephalopathic. 10/05: Afebrile. The patient was noted to have Medina tropicalis and urine cultures, Diflucan initiated. The patient remains encephalopathic. The patient continues on CPAP trials. 10/06 No acute events overnight. On TP's with 28% FIO2 with good sats. Afebrile. 10/07: Afebrile .Patient's gastric tube consists continually clog. GI consulted, gastric tube placed. Patient was placed on TPiece yesterday, doing well. 10/08: The patient continues on T piece today, continues O2 saturation of 97%. No acute issues overnight. He remains encephalopathic. 10/25: Reconsulted after CODE EULALIO. Patient with prolonged respiratory arrest likely leading to cardiac arrest. Please see CODE BLUE note. Currently on norepinephrine, epinephrine and vasopressin drips for vasopressor support. Subjective 10/26: Patient currently overmaxed on 4 vasopressors. Tmax 100. 50 cc urine output past 8 hours. Eyes appear deviated to the left. Persistently hyperkalemic overnight. Objective Vital Signs Date Time Temp Pulse Resp B/P Pulse Ox O2 Delivery O2 Flow Rate FiO2 10/26/16 06:00 83 10/26/16 04:00 100.0 20 113/74 93 10/26/16 04:00 50 10/25/16 19:00 Mechanical Ventilator 10/25/16 15:03 15.00 Intake and Output 10/25/16 10/25/16 10/26/16 08:00 16:00 00:00 Intake Total 3863 ml Output Total 400 ml 250 ml Balance -400 ml 3613 ml Result Diagram: 10/26/16 0320 10/26/16 0320 Other Results Microbiology Date/Time Procedure Status Source Growth 10/26/16 04:11 Aerobic Blood Culture Received Blood Peripheral Pending 10/26/16 04:11 Anaerobic Blood Culture Received Blood Peripheral Pending Imaging Last Impressions Chest X-Ray 10/26/16 0600 Signed Impressions: Service Date/Time: October 02:34 - CONCLUSION: No significant change Zach Andrews MD Abdomen X-Ray 10/10/16 0000 Signed Impressions: Service Date/Time: Monday, October 10, 2016 13:59 - CONCLUSION: 1. Normal bowel gas pattern. 2. Aortic endograft. Jace Mason Jr., MD Objective Remarks GENERAL: This is a 80-year-old elderly male, previously documented as noncommunicative, trach dependent, PEG dependent with agonal breathing SKIN: Cool and dry. Sacral decubiti with wound packing in place/intact. 2 lesions occipital area, no drainage noted currently HEAD: Atraumatic. Normocephalic. Posterior pinpoint skin lesions noted on the occipital area EYES: Left-sided ptosis. Eyes deviated/favor left. No scleral icterus. No injection or drainage. ENT: No septal hematoma. Airway patent without thrush. Tracheostomy in place NECK: Trachea midline. No JVD. Right IJ clean dry and intact CARDIOVASCULAR: RRR. S1, S2 no S4. No murmur RESPIRATORY: On ventilator via tracheostomy. Bilaterally decreased air entry and no wheezing GASTROINTESTINAL: Abdomen distended, nondistended.PEG tube site old crusted lesions and no bowel sounds are appreciated MUSCULOSKELETAL: Bilateral lower extremity contracture. Atrophic. NEUROLOGICAL: Eyes are currently closed. No functional tracking noted. Does not follow any commands. Bilateral upper and lower extremity contractures with muscle atrophy. Procedures None Urinary Catheter: Yes Assessment to: Continue Person insert reason: Prolonged Immobilization Vascular Central Line Catheter: Yes Assessment to: Continue Date of Insertion: October 25, 2016 Line: Central Venous Catheter Side: Right Location: Internal, Jugular A/P Assessment and Plan Neuro/Psych: Dementia disorder not otherwise specified Schizophrenia as per note for records to thousand 11 Seizure disorder NOS - recent EEG 10/17 with bilateral frontal seizure activity followed by neurology Encephalopathy Anxiety disorder NOS Currently on as needed Versed/fentanyl for sedation/analgesia while intubated Goal of RASS -2 Daily sedation vacation - Dr. Prasad-neurology, EEG showing PLEDs, no seizure activity Currently on Dilantin 100 mg IV 3 times a day. Level 10.3 on 10/25. Recheck in a.m. Per prior refinery operator records daughter refusing Patricte and Claudia Unclear what baseline is since patient had 2 cardiac arrests over at [facility]. Pulm: Vent dependent respiratory failure Tracheal stent placement 2014 - stenosis? Tracheostomy procedure July 23, 2016 Tracheal removal replacement, tracheal's stent revision stent replacement with flexible rigid bronchoscopy September 14, 2016 -[facility] PRVC 20/550/1.2/5/50 Ventilator bundle Duo nebs every 6 hours with hypertonic saline aerosols for tracheal stent patency every 6 hours Continue trach cares Chest x-ray reveals no pneumothorax on 10/26 Follow-up ABG 10/26 pending CV: Status post respiratory arrest leading to cardiac arrest History of cardiac arrest August 13 and August 14, 2016 History of hypertension Chronic diastolic heart failure History of AAA repair via stent CAD Lactic acidosis Status post 4 L normal saline on 10/25. CVP 13 Currently on norepinephrine at 100 mics grams per minute, vasopressin 0.04units a minute, Matt-Synephrine at 300 mics grams per minute and epinephrine drips at 10 mcg/m to maintain MAP >65 Currently holding home medications on Coreg 12.5mg BID, Lisinopril 10mg daily in light of hypotension and hyperkalemia and in light of lisinopril, ASA 81 mg daily okay to continue Serial lactates until clear. Currently 5.6. Previously trending downward now upward Echocardiogram documented mild LV diastolic dysfunction, mild mitral regurgitation, moderate tricuspid regurgitation July 14, 2016 CVP 13 Not a candidate for targeted temperature measurement secondary to hemodynamic instability Amiodarone drip to be discontinued Noted on hydrocortisone 100 mg IV every 8 hours. Cortisol level drawn after hydrocortisone given so an accurate /renal/FEN: BPH History of prostate cancer Acute kidney injury likely secondary to renal hyperperfusion Person catheter will be placed for accurate I's and O's in a critically ill patient Monitor urine output. 50 cc past 8 hours Accurate I's and O's On Flomax 0.4 milligrams daily at home Will check a renal ultrasound today and urine eosinophils electrolytes Nephrology consulted. Currently not a candidate for CVVH with hemodynamic instability over maximum on 4 vasopressors GI: Dysphagia PEG placement Elevated transaminases Hyperammonia Elevated LFTs likely secondary to shock liver/hypoperfusion Cannot rule out bowel ischemia however not a candidate for any imaging due to hemodynamic instability nor surgical candidate PEG tube currently to gravity -1300 cc Treat elevated ammonia with lactulose/Xifaxan see orders Previously on tube feeds via PEG tube-Jevity 1.5@60ml/hr and note these again are on hold and PEG tube to gravity currently Protonix for GI prophylaxis Colace/bowel regimen ID: History of Pseudomonas and MRSA pneumonia Monitor for signs of infections ( Fever, WBC) d/c Tobra nebs ( has been on it since 09/21) 10/02 Urine cx: medina Tropicalis- On Diflucan currently will be held Will joyner culture with blood cultures 2, sputum and urine 10/25. Labs not until 10/26 Start empirically on vancomycin, aztreonam and Flagyl day #2 Skin: Continue wound care for sacral and occipital area Heme: Normocytic anemia Monitor CBC. Follow trends. No indication for transfusion of blood proximal at this time Endo: History diabetes mellitus Euglycemic ,SSI to 6 hours/low regimen FEN: Hyponatremia Hyperkalemia See hyperkalemia protocol orders. Recheck in 3 hours 1 dose of Solu-Cortef was supposed to be provided after cortisol level drawn rule out adrenal insufficiency. C renal Access - Right IJ CVL day 2 placed 10/25 in - right antecubital PICC line Prophylaxis - GI - Protonix - DVT - SCD/heparin subcutaneous Critical Care: The total critical care time was 45 minutes. Time to perform other separately billable procedures was not included in the critical care time. Discussed with Libby/daughter at [phone]. Requests aggressive care is to be provided. She is aware of multisystem organ failure with extremely poor prognosis. Bill Rizo MD Oct 26, 2016 06:57
[2016-10-26] MEDS ORDERED: MIDAZOLAM HCL 2 MG/2 ML VIAL IV PUSH PRN (07:00)
[2016-10-26] MEDS: SODIUM BICARBONATE 8.4% INJ 150 MEQ in WATER STERILE FOR INJ 850 ML IV SCH ×3 (07:21→20:05)
[2016-10-26 07:25] LABS: BLOOD GAS BASE EXCESS -9.7 mmol/L (-2-2); BLOOD GAS CARBOXYHEMOGLOBIN 1.3 % (0-4); BLOOD GAS HCO3 16 mmol/L (22-26); BLOOD GAS METHEMOGLOBIN 0.8 % (0-2); BLOOD GAS O2 HGB SATURATION 83 % (90-100); BLOOD GAS PCO2 34 mmHg (38-42); BLOOD GAS PO2 58 mmHg (61-120); BLOOD GAS TOTAL HGB 11.2 G/DL (12.0-16.0); CRITICAL VALUE YES; TEMP CORR TO 98.6
[2016-10-26 07:26] LABS: DRAW SITE ART LINE; FIO2 50 %; OXYGEN DEVICE VENTILATOR; STAT NO; VENT SETTINGS 20/550/IT1.2/+5
[2016-10-26 07:33] LABS: BLOOD GAS VENOUS BASE EXCESS -7.9 mmol/L (-2-2); BLOOD GAS VENOUS HCO3 19 mmol/L (22-26); BLOOD GAS VENOUS O2 CONTENT 5.1 Vol % (9.0-17.0); BLOOD GAS VENOUS O2 HGB SAT 32 % (70-76); BLOOD GAS VENOUS PCO2 50 mmHg (44-48); BLOOD GAS VENOUS PO2 27 mmHg (35-40); CRITICAL VALUE YES; DRAW SITE SWAN GANZ LINE; FIO2 50 %; OXYGEN DEVICE VENTILATOR; STAT NO; TEMP CORR TO 98.6; VENT SETTINGS 20/550/IT1.2/+5
--- NOTE | 2016-10-26 07:51 | EKG ---
Date Performed: 10/25/2016 Time Performed: 17:48:00 PTAGE: 80 years EKG: Sinus rhythm . IV conduction defect Possible inferior infarct - age undetermined Possible left ventricular hypertr ophy Lateral T wave changes are probably due to ventricular hypertrophy Abnormal ECG PREVIOUS TRACING : 06/30/2016 23.45 Compared to the previous tracing, IVCD appears to be new DOCTOR: Donovan Lees Interpretating Date/Time 10/26/2016 07:50:29
[2016-10-26] MEDS ORDERED: TERBUTALINE INJ 1 MG/ML AMP SQ PRN (08:00)
[2016-10-26] MEDS: PANTOPRAZOLE SODIUM 40 MG VIAL IV PUSH SCH (08:15)
[2016-10-26] MEDS: LACTULOSE SYRUP 20 GM/30 ML CUP PO SCH ×4 (08:15→19:54)
[2016-10-26] MEDS: FERROUS SULFATE 300 MG /5ML UDC PO SCH (08:15)
[2016-10-26] MEDS: SODIUM CHLORIDE 0.9% FLUSH 10 ML FLUSH IVF SCH (08:16)
[2016-10-26] MEDS: SODIUM CHLORIDE 0.9% FLUSH 10 ML FLUSH IV FLUSH SCH ×3 (08:16→19:54)
[2016-10-26] MEDS: JUVEN POWDER 1 PACK G-TUBE SCH ×2 (08:16→19:54)
[2016-10-26] MEDS: ASPIRIN 81 MG CHEW TAB PEG SCH (08:16)
--- NOTE | 2016-10-26 08:29 | RADRPT ---
EXAM DATE/TIME: 10/26/2016 07:31 [facility] COMPARISON: CHEST SINGLE AP, October 26, 2016, 2:34. ABDOMEN KUB ONLY, October 10, 2016, 13:59. INDICATIONS : Distention. MEDICAL HISTORY : None. SURGICAL HISTORY : None. ENCOUNTER: Initial ACUITY: 1 day PAIN SCORE: Non-responsive. LOCATION: Bilateral abdomen. FINDINGS: Supine frontal view of the abdomen demonstrates air distended small bowel and colon. There is a large amount of stool within the transverse colon. There is a crescentic suspected intramural air visualiz ed in multiple segments of small bowel in the right midabdomen. This represents a new finding. Endolu junior stent graft remains present and there are embolization coils overlying the right pelvis. A cath eter overlies the pelvis. There has been prior right proximal femur ORIF. Degenerative changes are pr esent throughout the lumbar spine. CONCLUSION: Abnormal small bowel gas pattern with findings suspicious for intramural air/pneumatosis intestinalis within segments of small bowel in the right midabdomen. This represents a new finding. There are bot h incidental/benign and life-threatening causes for pneumatosis intestinalis with the most concerning representing ischemic bowel. This finding should be correlated with the clinical history and physica l examination. Suggest CT of the abdomen and pelvis with intravenous contrast if there is clinical co ncern that this could be related to intestinal ischemia. These findings were relayed to the patient's nurse, Adamaris, via telephone on 10/26/2016 at 8: 25 AM. Zach Marquis MD on October 26, 2016 at 8:13 Board Certified Radiologist. This report was verified electronically.
[2016-10-26] MEDS: metroNIDAZOLE 250 MG INJ 50 ML IV SCH ×2 (08:39→16:10)
[2016-10-26] MEDS: SODIUM CHLORIDE 1 GRAM TAB PO SCH ×2 (08:40→17:28)
[2016-10-26] MEDS ORDERED: DOPamine INJ 1,600 MG in DEXTROSE 5% IN WATER INJ 240 ML IV SCH ×2 (09:00)
[2016-10-26] MEDS: RIFAXIMIN 550 MG TAB PO SCH ×2 (09:13→19:54)
[2016-10-26 11:20] LABS: BICARBONATE 21.1 MEQ/L (21.0-32.0); MAGNESIUM 2.3 MG/DL (1.5-2.5)
[2016-10-26] MEDS: LORazepam 2 MG/ML VIAL IVS PRN ×2 (12:13→14:24)
--- NOTE | 2016-10-26 12:30 | EC ---
Study Study Date:10/25/2016 STUDY CONCLUSIONS SUMMARY - Left ventricle: The cavity size was normal. Wall thickness was normal. Systolic function was mildly reduced. The estimated ejection fraction was in the range of 45% to 50%. Wall motion was normal; there were no regional wall motion abnormalities. - Aortic valve: Valve area: 3.63cm^2 (Vmax). If LV function is below 40, please consider prescribing an ACEI or ARB or document rationale for non-use. PROCEDURE DATA STUDY STATUS: Elective. Procedure: Transthoracic echocardiography. Image quality was poor. Scanning was performed from the parasternal, apical, and subcostal acoustic windows. Study completion: The patient tolerated the procedure well. Transthoracic echocardiography. M-mode, complete 2D, complete spectral Doppler, and color Doppler. Weight: Weight: 191.6lb. Patient status: Inpatient. CARDIAC ANATOMY LEFT VENTRICLE: The cavity size was normal. Wall thickness was normal. Systolic function was mildly reduced. The estimated ejection fraction was in the range of 45% to 50%. Wall motion was normal; there were no regional wall motion abnormalities. AORTIC VALVE: Trileaflet; normal thickness leaflets. Doppler: Transvalvular velocity was within the normal range. There was no stenosis. No regurgitation. Valve area: 3.63cm^2 (Vmax). AORTA: Aortic root: The aortic root was normal in size. MITRAL VALVE: Structurally normal valve. Doppler: Transvalvular velocity was within the normal range. There was no evidence for stenosis. No regurgitation. LEFT ATRIUM: The atrium was normal in size. RIGHT VENTRICLE: The cavity size was normal. Wall thickness was normal. PULMONIC VALVE: Doppler: Transvalvular velocity was within the normal range. There was no evidence for stenosis. No regurgitation. TRICUSPID VALVE: Structurally normal valve. Doppler: Transvalvular velocity was within the normal range. No regurgitation. PULMONARY ARTERY: The main pulmonary artery was normal-sized. Systolic pressure was within the normal range. RIGHT ATRIUM: The atrium was normal in size. PERICARDIUM: There was no pericardial effusion. SYSTEMIC VEINS: Inferior vena cava: The vessel was normal in size. Patient weight: 191.6lb _Ejection fraction:_ 65-75% _Fractional shortening:_ 32% up to 5Kg 5-11.5Kg 11.6-22.9Kg 23-45Kg 45-57Kg Aortic Root 7-13 <17 13-22 17-27 17-27 LA diam 6-13 <23 24-38 33-47 37-40 RVID 10-17 7-15 7-15 7-18 8-17 LVIDd 12-22 <32 24-38 33-47 37-40 LVPW 2-4 3-6 5-7 6-8 7-8 IVS 2-4 3-6 5-7 6-8 7-8 BASIC MEASUREMENTS ADULT NORMAL Left ventricle LV internal dimension, ED, chordal level, *37.1 mm 43-52 PLAX LV internal dimension, ES, chordal level, 31.9 mm 23-38 PLAX Fractional shortening, chordal level, PLAX *14 % >29 LV posterior wall thickness, ED 13.8 mm IVS/LVPW ratio, ED 1.01 <1.3 Ventricular septum Septal thickness, ED 13.9 mm Aortic valve Leaflet separation 21 mm 15-26 Aorta Ascending aorta anterior-posterior 41 mm diameter, S BASIC MEASUREMENTS ADULT NORMAL Aortic valve Leaflet separation 21 mm 15-26 Aorta Root diameter, ED *40 mm 20-37 Left atrium Anterior-posterior dimension, ES 26 mm 19-40 LA/aortic root ratio 0.65 DOPPLER MEASUREMENTS ADULT NORMAL Aortic valve Peak velocity, S 70.6 cm/s Valve area, Vmax 3.63 cm^2 Mitral valve Peak E-wave velocity 29.1 cm/s Peak A-wave velocity 44.9 cm/s Deceleration time *363 ms 150-230 Peak E/A ratio 0.6 LEGEND: Mean values are shown as u=mean value. Asterisk (*) orona values outside specified normal range. Prepared and signed by Blas Guallpa [id number]
--- NOTE | 2016-10-26 13:18 | HHI.HCPN ---
Dr. Rizo and I met with daughterLibby to provide medical update. Patient with worsening renal function and concern for possible ischemic bowel, too unstable for CT scan or hemodialysis. Patient remains on mech vent, 4 vasopressors. Daughter desires [facility] hospice consult and transfer home on mech vent to withdrawal of ventilator when he arrives home to honor his end of life wish to at home. She understands we will make every attempt to make this happen, though given his instability he may prior to getting home. She understands. She elects NO CODE. She feels he is tired now and we need to allow him peace and comfort. * NO CODE * Decision-making: Patient's daughter, Libby Smith, is the designated health care surrogate. Living will and DURABLE POWER OF ADMISSIONS CONSULTANT documents have also been completed and can be reviewed in the patient's EMR. * Goals: 10/26/16 - Spoke with daughterLibby at bedside. Medical update provided. She has elected transition to comfort measures with [facility] hospice support. She would like to continue current medical care until arrangements can be made to transfer home. She wants to honor his wish to at home, understanding he could prior to DC or en route during transport home. She wants to try. Discussed with nursing staff, Dr. Rizo and ANA admission office. ANA will try to get staff here [facility] to admit patient and to try to make arrangements for transport home on vent. Advised nursing staff to stop pressors once on stretcher and ready to leave hospital in effort to get him home. * Seizure: order written for PRN Lorazepam 2mg IV every 15 minutes PRN seizure per daughters request. * Symptom management dyspnea: in ICU on vent via trach post CODE BLUE 10/25/16. Pain: Possible causes of pain include immobility, bedbound status, invasiveness lines, tracheostomy, dyspnea, impaired skin integrity etc, shock, compressions, CODE BLUE. * Palliative care will continue to follow this patient throughout his hospitalization to establish trust, assist with symptom management and clarification of medical treatment goals. DAMASO JACKSON Oct 26, 2016 13:18
[2016-10-26] MEDS: ARTIFICIAL TEARS OPTH SOLN 15 ML BTL EACH EYE SCH ×2 (13:52→19:54)
[2016-10-26] MEDS: TAMSULOSIN HCL 0.4 MG CAP PO SCH (16:00)
[2016-10-26] MEDS: VASOPRESSIN INJ 40 UNITS in DEXTROSE 5% IN WATER 100ML INJ 98 ML IV SCH ×2 (17:00)
--- NOTE | 2016-10-26 20:24 | HHI.PR ---
Subjective Remarks 80 YOAA male multiple co morbid condition VDRF,Trach, tracheal stent Pt coded twice, on Vent On vanco and Aztreonam Maxed out on pressors DW RN at Daughter planning to take him home with hospice, does't want him to in the hosp Objective Vital Signs Vital Signs Date Time Temp Pulse Resp B/P Pulse Ox O2 Delivery O2 Flow Rate FiO2 10/26/16 20:00 99.5 86 24 121/67 10/26/16 20:00 75 10/26/16 20:00 86 10/26/16 19:00 Mechanical Ventilator 75 10/26/16 18:00 85 10/26/16 16:00 85 10/26/16 16:00 98.1 86 24 151/86 10/26/16 16:00 75 10/26/16 15:31 96 75 10/26/16 14:00 87 10/26/16 12:29 93 75 10/26/16 12:00 90 10/26/16 12:00 97.9 86 29 194/104 10/26/16 12:00 75 10/26/16 10:00 88 10/26/16 10:00 75 10/26/16 09:32 93 75 10/26/16 08:00 86 10/26/16 08:00 98.1 92 20 175/101 10/26/16 07:00 Mechanical Ventilator 50 10/26/16 06:00 83 10/26/16 04:00 100.0 96 20 113/74 93 10/26/16 04:00 98 10/26/16 04:00 50 10/26/16 03:47 95 50 10/26/16 02:00 94 10/26/16 00:59 95 50 10/26/16 00:00 96 10/26/16 00:00 50 10/26/16 00:00 99.5 99 20 106/64 93 10/25/16 22:00 80 10/25/16 21:05 97 50 I/O 10/25/16 10/25/16 10/25/16 10/26/16 10/26/16 10/26/16 07:00 15:00 23:00 07:00 15:00 23:00 Intake Total 3863 ml 2708 ml 2518 ml Output Total 400 ml 250 ml 1360 ml 1150 ml Balance -400 ml 3613 ml 1348 ml 1368 ml IV Total 3863 ml 2708 ml 2518 ml Output Urine Total 400 ml 250 ml 50 ml 0 ml Stool Total 0 ml 10 ml 0 ml Gastric Drainage Total 1300 ml 1150 ml Result Diagram: 10/26/16 0320 10/26/16 1027 Objective Remarks GENERAL: Elderly male, on Vent SKIN: Warm and dry. HEAD: Normocephalic. EYES: No scleral icterus. No injection or drainage. NECK: Supple, trachea midline. No JVD or lymphadenopathy. Has trach CARDIOVASCULAR: Regular rate and rhythm without murmurs, gallops, or rubs. RESPIRATORY: Breath sounds equal bilaterally. No accessory muscle use. GASTROINTESTINAL: Abdomen soft, non-tender, nondistended. PEG tube in place MUSCULOSKELETAL: No cyanosis, or edema. BACK: Nontender without obvious deformity. No CVA tenderness. A/P Assessment and Plan VDRF S/P Code blue Trach Tracheal stent Sz disorder S/P AAA repair S/P cardiac arrest PLAN: Vent Support PRVC, Fi02 50% Pressors Epi, Levophed and Vasopressin Abx Vanco and Aztreonam DW Dr.Biga ROSE plans with Hospice Daron Rock MD Oct 26, 2016 20:24
[2016-10-27] VITALS (7 sets, daily range): BP systolic 122–134; BP diastolic 69–73; PULSE 84–91; RESP 24; TEMP 99.5–99.9; O2SAT 98–100
[2016-10-27] MEDS: metroNIDAZOLE 250 MG INJ 50 ML IV SCH ×2 (00:20→08:00)
[2016-10-27] MEDS: AZTREONAM INJ 1,000 MG in SODIUM CHLORIDE 0.9% INJ 100 ML IV SCH (01:32)
[2016-10-27] MEDS: HYDROCORTISONE SOD SUCCINATE 100 MG VIAL IV PUSH SCH (01:32)
[2016-10-27] MEDS: SODIUM BICARBONATE 8.4% INJ 150 MEQ in WATER STERILE FOR INJ 850 ML IV SCH (02:45)
[2016-10-27] MEDS: RESP: ALBUTEROL 2.5 MG/IPRATROPIUM 0.5 MG NEB (SCH) NEB ×2 (03:10→08:59)
[2016-10-27] MEDS: RESP: SODIUM CHLORIDE 3% 4 ML NEB NEB SCH ×2 (03:10→08:59)
[2016-10-27 04:31] LABS: BLOOD GAS CARBOXYHEMOGLOBIN 1.6 % (0-4); BLOOD GAS HCO3 18 mmol/L (22-26); BLOOD GAS METHEMOGLOBIN 0.8 % (0-2); BLOOD GAS O2 HGB SATURATION 89 % (90-100); BLOOD GAS OXYGEN CONTENT 11.7 Vol % (12.0-20.0); BLOOD GAS PCO2 22 mmHg (38-42); BLOOD GAS PO2 62 mmHg (61-120); BLOOD GAS TOTAL HGB 9.3 G/DL (12.0-16.0); TEMP CORR TO 98.6
[2016-10-27 04:33] LABS: CRITICAL VALUE YES; OXYGEN DEVICE VENTILATOR
[2016-10-27 04:34] LABS: DRAW SITE ART LINE; FIO2 75 %; STAT NO
[2016-10-27 05:04] LABS: AUTOMATED NEUTROPHIL # 5.4 TH/MM3 (1.8-7.7); BASOPHIL % 0.3 % (0.0-2.0); EOSINOPHIL # 0.1 TH/MM3 (0-0.4); EOSINOPHIL % 1.5 % (0.0-4.0); HEMATOCRIT 30.4 % (39.0-51.0); LYMPH % 9.8 % (9.0-44.0); LYMPHOCYTE # 0.6 TH/MM3 (1.0-4.8); MEAN CELL VOLUME 94.2 FL (80.0-100.0); MEAN CORPUSCULAR HEMOGLOBIN 30.1 PG (27.0-34.0); MONO % 4.2 % (0.0-8.0); NEUT % 84.2 % (16.0-70.0); PLATELET COUNT 126 TH/MM3 (150-450); RED BLOOD COUNT 3.23 MIL/MM3 (4.50-5.90); RED CELL DISTRIBUTION WIDTH 19.7 % (11.6-17.2); WHITE BLOOD COUNT 6.4 TH/MM3 (4.0-11.0)
[2016-10-27 05:07] LABS: HEMO FLAGS AUTO DIFF
[2016-10-27 05:19] LABS: APTT (PATIENT) 46.6 SEC (24.3-30.1); INTERNATIONAL NORMALIZED RATIO 1.5 RATIO; PROTHROMBIN TIME - PATIENT 16.5 SEC (9.8-11.6)
[2016-10-27 05:24] LABS: BICARBONATE 19.8 MEQ/L (21.0-32.0); MAGNESIUM 2.2 MG/DL (1.5-2.5)
--- NOTE | 2016-10-27 05:26 | RADRPT ---
EXAM DATE/TIME: 10/27/2016 04:36 [place] COMPARISON: CHEST SINGLE AP, October 26, 2016, 2:34. INDICATIONS : Evaluate after respiratory failure. MEDICAL HISTORY : Carcinoma, prostatic. Chronic obstructive pulmonary disease. Diabetes SURGICAL HISTORY : Trach ENCOUNTER: Subsequent ACUITY: 1 month PAIN SCORE: Non-responsive. LOCATION: Bilateral chest FINDINGS: The cardiac silhouette is enlarged in transverse diameter. There is subsegmental atelectasis in the both bases. A tracheostomy tube is in place in the midline. CONCLUSION: 1. Bibasilar atelectasis. There has been no significant change when compared to the prior exam. Josh Okeefe MD on October 27, 2016 at 5:24 Board Certified Radiologist. This report was verified electronically.
[2016-10-27 05:52] LABS: CALCIUM-PROTEIN CORRECTED 8.1 MG/DL (8.5-10.1); TOTAL BILIRUBIN ADULT 1.2 MG/DL (0.2-1.0)
[2016-10-27] MEDS: INSULIN NovoLIN REGULAR SUPPLEMENTAL SCALE SQ SCH ×2 (06:00)
[2016-10-27] MEDS: HEPARIN SODIUM - SQ 10,000 UNITS/ML VIAL SQ SCH (06:09)
[2016-10-27] MEDS: ARTIFICIAL TEARS OPTH SOLN 15 ML BTL EACH EYE SCH (06:09)
[2016-10-27] MEDS: PHENYTOIN INJ 100 MG/2 ML VIAL IV SCH (06:09)
[2016-10-27 07:42] LABS: BANDS 76 % (0-6); CORRECTED NUCLEATED RBC 2 /100 WBC (0-0); METAMYELOCYTES 1 % (0-1); MYELOCYTES 1 % (0-0); NEUTROPHIL # MANUAL DIFF 5.5 TH/MM3 (1.8-7.7); POLYS (SEG NEUTROPHILS) 8 % (16-70); WBC DIFF SAMPLE 100
[2016-10-27 07:43] LABS: DOHLE BODIES PRESENT (NONE SEEN); PLATELET ESTIMATE SMEAR LOW (NORMAL); PLATELET MORPHOLOGY NORMAL (NORMAL); SCAN/DIFF FINAL DIFF MANUAL
[2016-10-27] MEDS: SODIUM CHLORIDE 1 GRAM TAB PO SCH (09:00)
[2016-10-27] MEDS: SODIUM CHLORIDE 0.9% FLUSH 10 ML FLUSH IV FLUSH SCH ×2 (09:00)
[2016-10-27] MEDS: RIFAXIMIN 550 MG TAB PO SCH (09:00)
[2016-10-27] MEDS: FERROUS SULFATE 300 MG /5ML UDC PO SCH (09:00)
[2016-10-27] MEDS: JUVEN POWDER 1 PACK G-TUBE SCH (09:00)
[2016-10-27] MEDS: LACTULOSE SYRUP 20 GM/30 ML CUP PO SCH (09:00)
[2016-10-27] MEDS: ASPIRIN 81 MG CHEW TAB PEG SCH (09:00)
[2016-10-27] MEDS: PANTOPRAZOLE SODIUM 40 MG VIAL IV PUSH SCH (09:00)
[2016-10-27] MEDS: SODIUM CHLORIDE 0.9% FLUSH 10 ML FLUSH IVF SCH (09:00)
--- NOTE | 2016-10-27 09:04 | HHI.CCPN ---
Subjective Remarks/Hospital Course 09/22: Patient was transferred from [facility] to [facility] in [place] on July 01, 2016. He was admitted to our hospital on June 30, 2016. Patient is a trach dependent and PEG dependent patient since about 2010 when we first saw him at our hospital. In June of this year, he presented to our emergency room and was admitted to the cleaner housekeeping service. He was having blood clots through his PEG tube as well with respiratory failure requiring ventilator support. He has had history of tracheomalacia with tracheal stent placed in [facility] about 2 years prior. Subsequent workup here in June revealed his tracheal stent 80%occlusion with debris versus mass. Therapeutic bronchoscopy was done here which shows near complete occlusion of tracheal stent with organized clots and mucous. He was managed overnight by cleaner housekeeping team and was transferred to [facility] because of this tracheal stent occlusion with hemoptysis. Patient was managed at [facility] for this tracheal stent occlusion and underwent multiple bronchoscopies and tracheostomy revision and tracheal stent revision with new stent placement. He also had cardiac arrest while in hospital on August 13, 2016 and August 14, 2016. He required ventilator support during the hospitalization and currently on FiO2 of 28% through trach. He was managed there for pseudomonas pneumonia with colonization and MRSA from bronchial lavage. 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 He was also managed for massive distention of the colon suspicious for volvulus versus ileus. He was finally stabilized and managed on PCU service at present and transferred back to [facility] on 09/20/16 when he was admitted by the hospitalist service to the floor on [facility]. This morning patient was noted to be lethargic and an ABG revealed PCO2 in the 80s. He was transferred to [facility] with critical care consult being requested by Dr. Chen. He was placed on mechanical ventilation. I evaluated the patient shortly following his arrival. History was obtained by reviewing records and discussion with Dr. Chen. 09/23: Remains encephalopathic on mechanical ventilation via tracheostomy. Tube feeds Resumed yesterday and tolerating well currently. 09/24: Remains encephalopathic on mechanical ventilation via tracheostomy. Blood pressure running high. Increased Coreg and started lisinopril. 09/25: Remains encephalopathic, on mechanical ventilation via tracheostomy. Tolerating tube feeds. Continue C Pap trials daily. 09/26: Remains encephalopathic, on mechanical ventilation via tracheostomy. Having apneic episodes with C Pap trials today. Tolerating tube feeds. 09/27: Remains encephalopathic, and mechanical ventilation via tracheostomy. C Pap/T piece trials as tolerated. 09/28: Continues to remain encephalopathic. Unsuccessful CPAP trials, tolerating tube feeds minimal residuals. 09/29: Tmax 98.4. No change in neurological status. CPAP trials continued but unsuccessful. 09/30: Afebrile. Remains encephalopathic. Patient tolerating CPAP trials greater than 4 hours today. Urine output adequate IV fluids discontinued. 10/01: The patient is advancing on CPAP trials greater than 4 hours today. No change in neurological status. Urine output adequate IV fluids discontinued. 10/02: Family daughter request stating that Keppra be held and continues to refuse Depakote. The patient was maintained on CPAP trials for approximately 4 hours yesterday. The patient was noted to have an elevation in temperature, cultures were obtained. 10/03: Remains encephalopathic. Reconsultation with wound care nurse noted new left area of sacral decubitus, orders for treatment instituted. Keppra and Depakote were placed on hold on the monitor due to refusal from family to allow patient to receive medication. The patient continues on CPAP trials. 10/04: The patient's daughter was noted to be at the bedside. New wound care instructions were implemented. Patient was noted to have 2 lesions on the posterior occiput that will be reevaluated by the wound care nurse. The patient remains encephalopathic. 10/05: Afebrile. The patient was noted to have Medina tropicalis and urine cultures, Diflucan initiated. The patient remains encephalopathic. The patient continues on CPAP trials. 10/06 No acute events overnight. On TP's with 28% FIO2 with good sats. Afebrile. 10/07: Afebrile .Patient's gastric tube consists continually clog. GI consulted, gastric tube placed. Patient was placed on TPiece yesterday, doing well. 10/08: The patient continues on T piece today, continues O2 saturation of 97%. No acute issues overnight. He remains encephalopathic. 10/25: Reconsulted after CODE EULALIO. Patient with prolonged respiratory arrest likely leading to cardiac arrest. Please see CODE BLUE note. Currently on norepinephrine, epinephrine and vasopressin drips for vasopressor support. Subjective 10/26: Patient currently overmaxed on 4 vasopressors. Tmax 100. 50 cc urine output past 8 hours. Eyes appear deviated to the left. Persistently hyperkalemic overnight. 10/27: Patient remains oliguric with worsening renal function. Potassium 6. Remains on multiple vasopressors. Plan is for hospice to see and transfer to home with comfort measures only Objective Vital Signs Date Time Temp Pulse Resp B/P Pulse Ox O2 Delivery O2 Flow Rate FiO2 10/27/16 06:00 90 10/27/16 04:09 98 75 10/27/16 04:00 99.5 24 134/73 10/26/16 19:00 Mechanical Ventilator 10/25/16 15:03 15.00 Intake and Output 10/26/16 10/26/16 10/27/16 08:00 16:00 00:00 Intake Total 2708 ml 2518 ml 2263 ml Output Total 1360 ml 1150 ml 550 ml Balance 1348 ml 1368 ml 1713 ml Result Diagram: 10/27/16 0440 10/27/16 0440 Other Results Laboratory Tests Test 10/27/16 04:14 Blood Gas Puncture Site ART LINE Blood Gas Patient Temperature 98.6 Blood Gas HCO3 18 mmol/L (22-26) Blood Gas Base Excess -5.0 mmol/L (-2-2) Blood Gas Oxygen Saturation 89 % (90-100) Arterial Blood pH 7.51 (7.380-7.420) Arterial Blood Partial 22 mmHg (38-42) Pressure CO2 Arterial Blood Partial 62 mmHg Pressure O2 (61-120) Arterial Blood Oxygen Content 11.7 Vol % (12.0-20.0) Arterial Blood 1.6 % (0-4) Carboxyhemoglobin Arterial Blood Methemoglobin 0.8 % (0-2) Blood Gas Hemoglobin 9.3 G/DL (12.0-16.0) Oxygen Delivery Device VENTILATOR Blood Gas Ventilator Setting COMMENT Blood Gas Inspired Oxygen 75 % Imaging Last Impressions Chest X-Ray 10/26/16 0600 Signed Impressions: Service Date/Time: October 02:34 - CONCLUSION: No significant change Zach Andrews MD Abdomen X-Ray 10/10/16 0000 Signed Impressions: Service Date/Time: Monday, October 10, 2016 13:59 - CONCLUSION: 1. Normal bowel gas pattern. 2. Aortic endograft. Jace Mason Jr., MD Objective Remarks GENERAL: This is a 80-year-old elderly male, previously documented as noncommunicative, trach dependent, PEG dependent on full vent support SKIN: Cool and dry. Sacral decubiti with wound packing in place/intact. 2 lesions occipital area, no drainage noted currently HEAD: Atraumatic. Normocephalic. Posterior pinpoint skin lesions noted on the occipital area EYES: Left-sided ptosis. Eyes deviated/favor left. No scleral icterus. No injection or drainage. ENT: No septal hematoma. Airway patent without thrush. Tracheostomy in place NECK: Trachea midline. No JVD. Right IJ clean dry and intact CARDIOVASCULAR: RRR. S1, S2 no S4. No murmur RESPIRATORY: On ventilator via tracheostomy. Bilaterally decreased air entry and no wheezing. Positive coarse rhonchi GASTROINTESTINAL: Abdomen distended. PEG tube site old crusted lesions and no bowel sounds are appreciated MUSCULOSKELETAL: Bilateral lower extremity contracture. Atrophic. NEUROLOGICAL: Eyes are currently closed. No tracking noted. Does not follow any commands. Bilateral upper and lower extremity contractures with muscle atrophy. Procedures None Date of Insertion: October 25, 2016 Line: Central Venous Catheter Side: Right Location: Internal, Jugular A/P Assessment and Plan Neuro/Psych: Dementia disorder not otherwise specified Schizophrenia as per previous records Seizure disorder NOS - recent EEG 10/17 with bilateral frontal seizure activity followed by neurology Encephalopathy Anxiety disorder NOS Currently on as needed Versed/fentanyl for sedation/analgesia while intubated Goal of RASS -2. No sedation vacation as transition to home hospice is planned today Dr. Prasad-neurology, EEG showing PLEDs, no seizure activity Currently on Dilantin 100 mg IV 3 times a day. Level 10.3 on 10/25. Per prior cleaner housekeeping records daughter refusing Depakote and Keppra Unclear what baseline is since patient had 2 cardiac arrests over at [facility] in [place]. Pulm: Vent dependent respiratory failure Tracheal stent placement 2014 - stenosis? Tracheostomy procedure July 23, 2016 Tracheal removal replacement, tracheal's stent revision stent replacement with flexible rigid bronchoscopy September 14, 2016 -[facility] 20/550/1.2/5/50 Ventilator bundle Duo nebs every 6 hours with hypertonic saline aerosols for tracheal stent patency every 6 hours Continue trach cares Chest x-ray reveals no pneumothorax on 10/26 Follow-up ABG 10/26 pending CV: Status post respiratory arrest leading to cardiac arrest History of cardiac arrest August 13 and August 14, 2016 Refractory shock on multiple pressors History of hypertension Chronic diastolic heart failure History of AAA repair via stent CAD Lactic acidosis Status post 4 L normal saline on 10/25. CVP 13 Currently on norepinephrine at 100 mics grams per minute, vasopressin 0.04units a minute, Matt-Synephrine at 300 mics grams per minute and epinephrine drips at 10 mcg/m to maintain MAP >65 Currently holding home medications on Coreg 12.5mg BID, Lisinopril 10mg daily in light of hypotension and hyperkalemia and in light of lisinopril, ASA 81 mg daily okay to continue Echocardiogram documented mild LV diastolic dysfunction, mild mitral regurgitation, moderate tricuspid regurgitation July 14, 2016 Not a candidate for targeted temperature measurement secondary to hemodynamic instability Amiodarone drip discontinued Noted on hydrocortisone 100 mg IV every 8 hours. Cortisol level drawn after hydrocortisone given so an accurate /renal/FEN: BPH History of prostate cancer Acute kidney injury likely secondary to renal hyperperfusion Person catheter will be placed for accurate I's and O's in a critically ill patient Monitor urine output. 50 cc past 8 hours Accurate I's and O's On Flomax 0.4 milligrams daily at home Nephrology consulted. Currently not a candidate for CVVH with hemodynamic instability over maximum on 4 vasopressors GI: Dysphagia PEG placement Elevated transaminases Hyperammonia Elevated LFTs likely secondary to shock liver/hypoperfusion Cannot rule out bowel ischemia however not a candidate for any imaging due to hemodynamic instability nor surgical candidate PEG tube currently to gravity -1300 cc Treating elevated ammonia with lactulose/Xifaxan see orders Previously on tube feeds via PEG tube-Jevity 1.5@60ml/hr and note these again are on hold and PEG tube to gravity currently Protonix for GI prophylaxis Colace/bowel regimen ID: History of Pseudomonas and MRSA pneumonia Monitor for signs of infections ( Fever, WBC) d/c Tobra nebs ( has been on it since 09/21) 10/02 Urine cx: medina Tropicalis- On Diflucan currently will be held Will joyner culture with blood cultures 2, sputum and urine 10/25. Labs not until 10/26 Empirically on vancomycin, aztreonam and Flagyl Skin: Continue wound care for sacral and occipital area Heme: Normocytic anemia Monitor CBC. Follow trends. No indication for transfusion of blood proximal at this time Endo: History diabetes mellitus Euglycemic ,SSI to 6 hours/low regimen FEN: Hyponatremia Hyperkalemia See hyperkalemia protocol orders. Access - Right IJ CVL day 3 placed 10/25 in - right antecubital PICC line Prophylaxis - GI - Protonix - DVT - SCD/heparin subcutaneous Critical Care: The total critical care time was 38 minutes. Time to perform other separately billable procedures was not included in the critical care time. Libby/daughter at [phone]. Requests aggressive care is to be provided except DNR, until transition to home hospice. Prognosis grave. She is aware of multisystem organ failure with extremely poor prognosis. Veena Serrano MD Oct 27, 2016 09:04
--- NOTE | 2016-10-27 10:39 | HHI.DS ---
Discharge Summary Admission Date Sep 20, 2016 at 22:06 Discharge Date: Oct 27, 2016 Admitting Diagnosis (1) [id number] respiratory failure ICD Code: J96.20 Diagnosis: Principal (2) Hyperkalemia ICD Code: E87.5 Diagnosis: Principal (3) Seizure disorder ICD Code: G40.909 Diagnosis: Principal (4) Tracheostomy in place ICD Code: Z93.0 Diagnosis: Principal (5) S/P percutaneous endoscopic gastrostomy (PEG) tube placement ICD Code: Z93.1 Diagnosis: Secondary (6) H/O cardiac arrest ICD Code: Z86.74 Diagnosis: Secondary (7) S/P AAA repair ICD Code: Z98.890 Diagnosis: Secondary (8) Dementia ICD Code: F03.90 Diagnosis: Secondary (9) Schizophrenia ICD Code: F20.9 Diagnosis: Secondary (10) Diabetes mellitus type 2, controlled ICD Code: E11.9 (11) CAD (coronary artery disease) ICD Code: I25.10 Diagnosis: Secondary (12) Encephalopathy acute ICD Code: G93.40 Diagnosis: Secondary (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 Patient was transferred from our hospital to [facility] in [place] on July 01, 2016. He was admitted to our hospital on June 30, 2016. Patient is a trach dependent and PEG dependent patient since about 2010 when we first saw him at our hospital. In June of this year, he presented to our emergency room and was admitted to the cessation systems outreach specialist service. He was having blood clots through his PEG tube as well with respiratory failure requiring ventilator support. He has had history of tracheomalacia with tracheal stent placed in [facility] about 2 years prior. Subsequent workup here in June revealed his tracheal stent 80%occlusion with debris versus mass. Therapeutic bronchoscopy was done here which shows near complete occlusion of tracheal stent with organized clots and mucous. He was managed overnight by cessation systems outreach specialist team and was transferred to [facility] because of this tracheal stent occlusion with hemoptysis. Patient was managed at [facility] for this tracheal stent occlusion and underwent multiple bronchoscopies and tracheostomy revision and tracheal stent revision with new stent placement. He also had cardiac is rest while in hospital on August 13, 2016 and August 14, 2016. He required ventilator support during the hospitalization and currently on FiO2 of 28% through trach. He was managed there for pseudomonas pneumonia with colonization and MRSA from bronchial lavage. 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 He was also managed for massive distention of the colon suspicious for volvulus versus ileus. He was finally stabilized and managed on PCU service at present and transferred to our facility back today for further care. CBC/BMP: 10/27/16 0440 10/27/16 0440 Significant Findings Laboratory Tests Test 10/25/16 10/25/16 10/25/16 10/25/16 05:10 07:30 10:42 15:45 Red Blood Count 2.90 MIL/MM3 3.19 MIL/MM3 (4.50-5.90) (4.50-5.90) Hemoglobin 9.8 GM/DL 10.7 GM/DL (13.0-17.0) (13.0-17.0) Hematocrit 28.2 % 31.8 % (39.0-51.0) (39.0-51.0) Red Cell Distribution Width 19.3 % 19.1 % (11.6-17.2) (11.6-17.2) Sodium Level 122 MEQ/L 123 MEQ/L 120 MEQ/L (136-145) (136-145) (136-145) Potassium Level 6.2 MEQ/L 6.0 MEQ/L 6.0 MEQ/L (3.5-5.1) (3.5-5.1) (3.5-5.1) Chloride Level 84 MEQ/L 84 MEQ/L 85 MEQ/L (98-107) (98-107) (98-107) Blood Urea Nitrogen 28 MG/DL (7-18) 30 MG/DL (7-18) 36 MG/DL (7-18) Random Glucose 138 MG/DL 162 MG/DL 254 MG/DL (74-106) (74-106) (74-106) Blood Gas HCO3 30 mmol/L (22-26) Blood Gas Base Excess 4.3 mmol/L (-2-2) Arterial Blood pH 7.34 (7.380-7.420) Arterial Blood Partial 57 mmHg (38-42) Pressure CO2 Blood Gas Hemoglobin 11.3 G/DL (12.0-16.0) Activated Partial 38.1 SEC Thromboplast Time (24.3-30.1) Fibrinogen 514 mg/dL (227-377) Creatinine 1.33 MG/DL (0.60-1.30) Estimat Glomerular Filtration 63 ML/MIN (>89) Rate Lactic Acid Level 7.3 mmol/L (0.4-2.0) Calcium Level 10.4 MG/DL (8.5-10.1) Phosphorus Level 8.9 MG/DL (2.5-4.9) Magnesium Level 2.6 MG/DL (1.5-2.5) Aspartate Amino Transf 46 U/L (15-37) (AST/SGOT) Alkaline Phosphatase 169 U/L (45-117) Troponin I LESS THAN 0.02 NG/ML (0.02-0.05) Albumin 1.6 GM/DL (3.4-5.0) Test 10/25/16 10/25/16 10/25/16 10/25/16 15:58 18:49 20:17 22:11 Blood Gas HCO3 20 mmol/L 19 mmol/L (22-26) (22-26) Blood Gas Base Excess -6.9 mmol/L -5.4 mmol/L (-2-2) (-2-2) Arterial Blood pH 7.21 7.37 (7.380-7.420) (7.380-7.420) Arterial Blood Partial 51 mmHg (38-42) 34 mmHg (38-42) Pressure CO2 Arterial Blood Partial 277 mmHg Pressure O2 (61-120) Blood Gas Hemoglobin 11.7 G/DL (12.0-16.0) Sodium Level 123 MEQ/L (136-145) Potassium Level 6.7 MEQ/L (3.5-5.1) Chloride Level 91 MEQ/L (98-107) Carbon Dioxide Level 20.7 MEQ/L (21.0-32.0) Blood Urea Nitrogen 42 MG/DL (7-18) Creatinine 1.39 MG/DL (0.60-1.30) Estimat Glomerular Filtration 60 ML/MIN (>89) Rate Random Glucose 267 MG/DL (74-106) Lactic Acid Level 3.4 mmol/L (0.4-2.0) Troponin I 0.18 NG/ML (0.02-0.05) Test 10/26/16 10/26/16 10/26/16 10/26/16 01:31 03:20 07:14 07:20 Potassium Level 6.7 MEQ/L 7.3 MEQ/L (3.5-5.1) (3.5-5.1) Lactic Acid Level 4.7 mmol/L 5.6 mmol/L (0.4-2.0) (0.4-2.0) Red Blood Count 3.83 MIL/MM3 (4.50-5.90) Hemoglobin 12.1 GM/DL (13.0-17.0) Hematocrit 36.3 % (39.0-51.0) Red Cell Distribution Width 18.9 % (11.6-17.2) Neutrophils (%) (Auto) 76.7 % (16.0-70.0) Monocytes (%) (Auto) 12.2 % (0.0-8.0) Neutrophils # (Auto) 8.0 TH/MM3 (1.8-7.7) Monocytes # (Auto) 1.3 TH/MM3 (0-0.9) Band Neutrophils % 62 % (0-6) Lymphocytes % 6 % (9-44) Monocytes % 10 % (0-8) Neutrophils # (Manual) 8.7 TH/MM3 (1.8-7.7) Metamyelocytes 4 % (0-1) Myelocytes 1 % (0-0) Nucleated Red Blood Cells 3 /100 WBC (0-0) Plasma Cells 1 % (0-0) Toxic Vacuolation PRESENT (NONE SEEN) Dohle Bodies PRESENT (NONE SEEN) Rouleau PRESENT (NORMAL) Prothrombin Time 13.8 SEC (9.8-11.6) Activated Partial 36.9 SEC Thromboplast Time (24.3-30.1) Sodium Level 125 MEQ/L (136-145) Chloride Level 93 MEQ/L (98-107) Carbon Dioxide Level 18.4 MEQ/L (21.0-32.0) Blood Urea Nitrogen 43 MG/DL (7-18) Creatinine 1.91 MG/DL (0.60-1.30) Estimat Glomerular Filtration 41 ML/MIN (>89) Rate Random Glucose 212 MG/DL (74-106) Phosphorus Level 5.5 MG/DL (2.5-4.9) Aspartate Amino Transf 1122 U/L (AST/SGOT) (15-37) Alanine Aminotransferase 996 U/L (12-78) (ALT/SGPT) Alkaline Phosphatase 164 U/L (45-117) Ammonia 112 MCMOL/L (11-32) Troponin I 0.28 NG/ML (0.02-0.05) Albumin 1.4 GM/DL (3.4-5.0) Thyroid Stimulating Hormone 9.970 uIU/ML 3rd Gen (0.358-3.740) Blood Gas HCO3 16 mmol/L (22-26) Blood Gas Base Excess -9.7 mmol/L (-2-2) Blood Gas Oxygen Saturation 83 % (90-100) Arterial Blood pH 7.29 (7.380-7.420) Arterial Blood Partial 34 mmHg (38-42) Pressure CO2 Arterial Blood Partial 58 mmHg Pressure O2 (61-120) Blood Gas Hemoglobin 11.2 G/DL (12.0-16.0) Venous Blood pH 7.20 (7.360-7.400) Venous Blood Partial Pressure 50 mmHg (44-48) CO2 Venous Blood Partial Pressure 27 mmHg (35-40) O2 Venous Blood HCO3 19 mmol/L (22-26) Venous Blood Oxygen Saturation 32 % (70-76) Venous Blood Oxygen Content 5.1 Vol % (9.0-17.0) Venous Blood Base Excess -7.9 mmol/L (-2-2) Test 10/26/16 10/27/16 10/27/16 10:27 04:14 04:40 Sodium Level 125 MEQ/L 125 MEQ/L (136-145) (136-145) Potassium Level 6.0 MEQ/L 6.0 MEQ/L (3.5-5.1) (3.5-5.1) Chloride Level 89 MEQ/L 86 MEQ/L (98-107) (98-107) Blood Urea Nitrogen 52 MG/DL (7-18) 62 MG/DL (7-18) Creatinine 2.22 MG/DL 2.79 MG/DL (0.60-1.30) (0.60-1.30) Estimat Glomerular Filtration 35 ML/MIN (>89) 27 ML/MIN (>89) Rate Random Glucose 174 MG/DL 131 MG/DL (74-106) (74-106) Phosphorus Level 5.1 MG/DL 5.4 MG/DL (2.5-4.9) (2.5-4.9) Blood Gas HCO3 18 mmol/L (22-26) Blood Gas Base Excess -5.0 mmol/L (-2-2) Blood Gas Oxygen Saturation 89 % (90-100) Arterial Blood pH 7.51 (7.380-7.420) Arterial Blood Partial 22 mmHg (38-42) Pressure CO2 Arterial Blood Oxygen Content 11.7 Vol % (12.0-20.0) Blood Gas Hemoglobin 9.3 G/DL (12.0-16.0) Red Blood Count 3.23 MIL/MM3 (4.50-5.90) Hemoglobin 9.7 GM/DL (13.0-17.0) Hematocrit 30.4 % (39.0-51.0) Red Cell Distribution Width 19.7 % (11.6-17.2) Platelet Count 126 TH/MM3 (150-450) Neutrophils (%) (Auto) 84.2 % (16.0-70.0) Lymphocytes # (Auto) 0.6 TH/MM3 (1.0-4.8) Neutrophils % (Manual) 8 % (16-70) Band Neutrophils % 76 % (0-6) Lymphocytes % 4 % (9-44) Monocytes % 10 % (0-8) Myelocytes 1 % (0-0) Nucleated Red Blood Cells 2 /100 WBC (0-0) Dohle Bodies PRESENT (NONE SEEN) Platelet Estimate LOW (NORMAL) Prothrombin Time 16.5 SEC (9.8-11.6) Activated Partial 46.6 SEC Thromboplast Time (24.3-30.1) Carbon Dioxide Level 19.8 MEQ/L (21.0-32.0) Anion Gap 19 MEQ/L (5-15) Lactic Acid Level 10.4 mmol/L (0.4-2.0) Calcium Level 7.4 MG/DL (8.5-10.1) Protein Corrected Calcium 8.1 MG/DL (8.5-10.1) Total Bilirubin 1.2 MG/DL (0.2-1.0) Aspartate Amino Transf 2417 U/L (AST/SGOT) (15-37) Alanine Aminotransferase 2663 U/L (ALT/SGPT) (12-78) Alkaline Phosphatase 195 U/L (45-117) Ammonia LESS THAN 10 MCMOL/L (11-32) Troponin I 0.07 NG/ML (0.02-0.05) Total Protein 5.8 GM/DL (6.4-8.2) Albumin 1.8 GM/DL (3.4-5.0) Lipase 62 U/L (73-393) PE at Discharge GA: patient nonverbal, trach in place, more calm today, no jerking movements of his face or arm. SKIN: Sacral decubitus with wound packing. EYES: Left-sided ptosis No scleral icterus. No injection or drainage. Eyes deviated to the right. ENT: Nose without bleeding, purulent drainage or septal hematoma Airway patent. NECK: Trachea midline. No JVD. Tracheostomy in place CARDIOVASCULAR: Regular rate and rhythm without murmurs, gallops, or rubs. RESPIRATORY: Bilateral rhonchi, no wheezing. No crackles auscultated. GASTROINTESTINAL: Abdomen soft, non-tender, nondistended. No guarding. No suprapubic tenderness. PEG in place, no erythema or purulent discharge observed. MUSCULOSKELETAL: Bilateral lower extremity contracture. Atrophic. NEUROLOGICAL: Eyes closed. Does not follow any commands. Bilateral upper and lower extremity contractures with muscle atrophy. No jerking movements of his face or arm. Transfer Summary see hospital course Hospital Course 09/22: Patient was transferred from [facility] to [facility] in [place] on July 01, 2016. He was admitted to our hospital on June 30, 2016. Patient is a trach dependent and PEG dependent patient since about 2010 when we first saw him at our hospital. In June of this year, he presented to our emergency room and was admitted to the cessation systems outreach specialist service. He was having blood clots through his PEG tube as well with respiratory failure requiring ventilator support. He has had history of tracheomalacia with tracheal stent placed in [facility] about 2 years prior. Subsequent workup here in June revealed his tracheal stent 80%occlusion with debris versus mass. Therapeutic bronchoscopy was done here which shows near complete occlusion of tracheal stent with organized clots and mucous. He was managed overnight by cessation systems outreach specialist team and was transferred to [facility] because of this tracheal stent occlusion with hemoptysis. Patient was managed at [facility] for this tracheal stent occlusion and underwent multiple bronchoscopies and tracheostomy revision and tracheal stent revision with new stent placement. He also had cardiac arrest while in hospital on August 13, 2016 and August 14, 2016. He required ventilator support during the hospitalization and currently on FiO2 of 28% through trach. He was managed there for pseudomonas pneumonia with colonization and MRSA from bronchial lavage. 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 He was also managed for massive distention of the colon suspicious for volvulus versus ileus. He was finally stabilized and managed on PCU service at present and transferred back to [facility] on 09/20/16 when he was admitted by the hospitalist service to the floor on [facility] collar. This morning patient was noted to be lethargic and an ABG revealed PCO2 in the 80s. He was transferred to [facility] with critical care consult being requested by Dr. Chen. He was placed on mechanical ventilation. I evaluated the patient shortly following his arrival. History was obtained by reviewing records and discussion with Dr. Chen. 09/23: Remains encephalopathic on mechanical ventilation via tracheostomy. Tube feeds Resumed yesterday and tolerating well currently. 09/24: Remains encephalopathic on mechanical ventilation via tracheostomy. Blood pressure running high. Increased Coreg and started lisinopril. 09/25: Remains encephalopathic, on mechanical ventilation via tracheostomy. Tolerating tube feeds. Continue C Pap trials daily. 09/26: Remains encephalopathic, on mechanical ventilation via tracheostomy. Having apneic episodes with C Pap trials today. Tolerating tube feeds. 09/27: Remains encephalopathic, and mechanical ventilation via tracheostomy. C Pap/T piece trials as tolerated. 09/28: Continues to remain encephalopathic. Unsuccessful CPAP trials, tolerating tube feeds minimal residuals. 09/29: Tmax 98.4. No change in neurological status. CPAP trials continued but unsuccessful. 09/30: Afebrile. Remains encephalopathic. Patient tolerating CPAP trials greater than 4 hours today. Urine output adequate IV fluids discontinued. 10/01: The patient is advancing on CPAP trials greater than 4 hours today. No change in neurological status. Urine output adequate IV fluids discontinued. 10/02: Family daughter request stating that Keppra be held and continues to refuse Depakote. The patient was maintained on CPAP trials for approximately 4 hours yesterday. The patient was noted to have an elevation in temperature, cultures were obtained. 10/03: Remains encephalopathic. Reconsultation with wound care nurse noted new left area of sacral decubitus, orders for treatment instituted. Keppra and Depakote were placed on hold on the monitor due to refusal from family to allow patient to receive medication. The patient continues on CPAP trials. 10/04: The patient's daughter was noted to be at the bedside. New wound care instructions were implemented. Patient was noted to have 2 lesions on the posterior occiput that will be reevaluated by the wound care nurse. The patient remains encephalopathic. 10/05: Afebrile. The patient was noted to have Concetta tropicalis and urine cultures, Diflucan initiated. The patient remains encephalopathic. The patient continues on CPAP trials. 10/06 No acute events overnight. On TP's with 28% FIO2 with good sats. Afebrile. 10/07: Afebrile .Patient's gastric tube consists continually clog. GI consulted, gastric tube placed. Patient was placed on TPiece yesterday, doing well. 10/08: The patient continues on T piece today, continues O2 saturation of 97%. No acute issues overnight. He remains encephalopathic. 10/25: Reconsulted after CODE BLUE. Patient with prolonged respiratory arrest likely leading to cardiac arrest. Please see CODE BLUE note. Currently on norepinephrine, epinephrine and vasopressin drips for vasopressor support. 10/26: Patient currently overmaxed on 4 vasopressors. Tmax 100. 50 cc urine output past 8 hours. Eyes appear deviated to the left. Persistently hyperkalemic overnight. 2: Patient remains oliguric with worsening renal function. Potassium 6. Remains on multiple vasopressors. Plan is for transfer to home hospice with comfort measures only Pt Condition on Discharge: Deteriorating Discharge Disposition: Hospice/ Home Discharge Instructions DIET: Follow Instructions for: Nothing By Mouth Activities you can perform: Continue Bedrest Additional Information Continue current bag of vasopressors until patient reaches home for hospice/ comfort measures Veena Serrano MD Oct 27, 2016 10:39
[2016-10-27] MEDS ORDERED: VANCOMYCIN 1,500 MG/NS 500 ML IV ONE ×2 (12:00)
--- NOTE | 2016-11-23 13:53 | MG ---
cc: GARRISON ABARCA M.D. Lab No: Date: 10/26/2016 Age: 80 Sex: M Race: REQUESTING PHYSICIAN Dr. Rizo. An EEG was obtained on this 80-year-old patient described as unresponsive, status post code blue. The patient is trached. MEDICATIONS Medications include: 1. Dilantin. 2. Solu-Cortef. 3. Insulin. 4. Epinephrine. The EEG shows generalized attenuation but the most important pattern also might be the intermittent bilateral, left more than right sharp, spike and polyspike slow wave activity. This is at times repeating every couple of seconds and has intermittent rather than continuous presentation. At times this appears almost like a resolving burst of suppression pattern. INTERPRETATION Markedly abnormal EEG because of a near burst suppression pattern. Burst activity is characterized by polyspike and slow wave, left more than right. The findings suggest a very severe diffuse disturbance of cerebral function with associated frequent epileptiform features maximum on the left. No distinct ictal pattern. Garrison Abarca MD OFC/TLL /12:58 PM /1:49 PM
== END 2016-10-27 10:47 | disposition hospice, home (50) | DRG 207 ==
LOC: HCIS 22:06 → OBSVTOIN 22:06 → INTOOBSV 22:06 → HIME 09-22 09:25 → N04A 10-13 16:46 → N03A 10-25 15:41
PROVIDERS: ADMIT Internal Medicine Critical Care Medicine; ATTEND Internal Medicine Critical Care Medicine
PROC: 5A1955Z Respiratory Ventilation, Greater than 96 Consecutive Hours (ICD-10-PCS; principal; 2016-09-22)
PROC: 04HY32Z Insertion of Monitoring Device into Lower Artery, Percutaneous Approach (ICD-10-PCS; 2016-10-25)
PROC: 02HV33Z Insertion of Infusion Device into Superior Vena Cava, Percutaneous Approach (ICD-10-PCS; 2016-10-25)
PROC: 5A2204Z Restoration of Cardiac Rhythm, Single (ICD-10-PCS; 2016-10-25)
PROC: 5A2204Z Restoration of Cardiac Rhythm, Single (ICD-10-PCS; 2016-10-25)
DX: J95.03 Malfunction of tracheostomy stoma (principal); J96.21 Acute and chronic respiratory failure with hypoxia; R57.9 Shock, unspecified; K72.00 Acute and subacute hepatic failure without coma; L89.152 Pressure ulcer of sacral region, stage 2; G93.1 Anoxic brain damage, not elsewhere classified; I11.0 Hypertensive heart disease with heart failure; R34 Anuria and oliguria; N17.9 Acute kidney failure, unspecified; I50.32 Chronic diastolic (congestive) heart failure; Z99.11 Dependence on respirator [ventilator] status; I49.01 Ventricular fibrillation; F20.0 Paranoid schizophrenia; E87.2 Acidosis; N39.0 Urinary tract infection, site not specified; E87.1 Hypo-osmolality and hyponatremia; K94.23 Gastrostomy malfunction; L89.154 Pressure ulcer of sacral region, stage 4; Y82.8 Other medical devices associated with adverse incidents; Y83.8 Other surgical procedures as the cause of abnormal reaction of the patient, or of later complication, without mention of misadventure at the time of the procedure; J44.9 Chronic obstructive pulmonary disease, unspecified; F03.90 Unspecified dementia, unspecified severity, without behavioral disturbance, psychotic disturbance, mood disturbance, and anxiety; E11.8 Type 2 diabetes mellitus with unspecified complications; C61 Malignant neoplasm of prostate; G40.909 Epilepsy, unspecified, not intractable, without status epilepticus; K21.9 Gastro-esophageal reflux disease without esophagitis; I25.10 Atherosclerotic heart disease of native coronary artery without angina pectoris; Z87.891 Personal history of nicotine dependence; Z86.14 Personal history of Methicillin resistant Staphylococcus aureus infection; I08.1 Rheumatic disorders of both mitral and tricuspid valves; N40.0 Benign prostatic hyperplasia without lower urinary tract symptoms; Z86.74 Personal history of sudden cardiac arrest; Z86.79 Personal history of other diseases of the circulatory system; Z66 Do not resuscitate; E87.5 Hyperkalemia; Z51.5 Encounter for palliative care; I69.391 Dysphagia following cerebral infarction; Z22.322 Carrier or suspected carrier of Methicillin resistant Staphylococcus aureus; Z79.82 Long term (current) use of aspirin; D63.8 Anemia in other chronic diseases classified elsewhere; Y83.3 Surgical operation with formation of external stoma as the cause of abnormal reaction of the patient, or of later complication, without mention of misadventure at the time of the procedure
CPT/HCPCS: 36556; 36569; 36600; 71010; 74000; 76937; 80048; 80053; 80164; 80185; 80202; 81001; 82140; 82272; 82533; 82550; 82607; 82728; 82746; 82805; 82948; 83540; 83550; 83605; 83690; 83735; 83930; 83935; 84100; 84132; 84443; 84484; 84550; 85007; 85025; 85027; 85384; 85610; 85730; 87040; 87070; 87086; 87106; 87205; 87493; 87641; 92950; 93005; 93306; 94002; 94003; 94620; 94640; 94664; 95819; A7521; C9113; J0171; J0282; J0461; J0610; J1165; J1450; J1642; J1644; J1720; J1815; J1940; J2060; J2370; J2765; J2930; J3370; J7030; J7040; J7050; J7060; J7613; J7682; P9047; Q9963